=== PATIENT | male | born 1960 | race Caucasian/White ===

== ENCOUNTER 2019-05-14 06:35 | Inpatient (IN) | payer OTHER, MEDICARE ==
[~2019-05-14] VITALS: Ht 185.4 cm; Wt 88.6 kg
[2019-05-14] VITALS (24 sets, daily range): BP systolic 81–119; BP diastolic 47–85
[~2019-05-14 06:35] MED LIST: ASPI-983 PO; ATOR20TA66 PO; CLOP75TA28 PO; IBUP-30 PO; LISI-556 PO; METO50TA15 PO; NITR0.4T39 SL; RIBA200C13 PO; RIBA200T4 PO; TR1C15 TOP; ZOLP5TAB7 PO; [UNRECOGNIZED DRUG - CODE] PO
[2019-05-14] MEDS ORDERED: NS IV 1000 ML 1,000 ML ONE ×2 (06:38→09:07)
[2019-05-14] MEDS ORDERED: NS (IVPB) 100 ML ONE (06:40)
[2019-05-14] MEDS ORDERED: DILTIAZEM 125 MG/25 ML IV (CARDIZEM) IV ONE (06:41)
[2019-05-14] MEDS ORDERED: DILTIAZEM 25 MG/5 ML INJ (CARDIZEM) VIAL ONE (06:41)
[2019-05-14] MEDS ORDERED: NS IV 1000 ML 1,000 ML IV SCH ×2 (06:46→13:15)
[2019-05-14 06:53] LABS: BASOPHILS % (AUTO) 0 % (0-10); EOSINOPHILS # (AUTO) 0.1 10^3/uL (0.0-0.3); EOSINOPHILS % (AUTO) 2 % (0-10); HEMATOCRIT 35 % (40-54); LYMPHOCYTES # (AUTO) 0.7 X 10^3 (1.0-4.0); LYMPHOCYTES % (AUTO) 13 % (12-44); MEAN CORPUSCULAR HEMOGLOBIN 28 PG (25-34); MEAN CORPUSCULAR HGB CONC 31 G/DL (32-36); MEAN CORPUSCULAR VOLUME 90 FL (80-99); MEAN PLATELET VOLUME 8.8 FL (7.4-10.4); MONOCYTES # (AUTO) 0.4 X 10^3 (0.0-1.0); MONOCYTES % (AUTO) 8 % (0-12); NEUTROPHILS % (AUTO) 78 % (42-75); PLATELET COUNT 170 10^3/uL (130-400); RED CELL DISTRIBUTION WIDTH 19.7 % (10.0-14.5); WHITE BLOOD COUNT 5.1 10^3/uL (4.3-11.0)
[2019-05-14] MEDS: DILTIAZEM IV FOR DRIP 125 MG in NS (IVPB) 100 ML IV SCH ×2 (06:53→21:29)
[2019-05-14] MEDS ORDERED: LACTATED RINGERS 1,000 ML IV ONE ×2 (06:57→07:22)
[2019-05-14] MEDS ORDERED: GABA-488 (06:58)
[2019-05-14] MEDS ORDERED: FENT1PAT8 TD (06:58)
[2019-05-14] MEDS ORDERED: OXYC10TA7 PO (06:58)
[2019-05-14] MEDS ORDERED: ALLO300T2 PO (06:58)
[2019-05-14] MEDS ORDERED: METF500T8 PO (06:58)
[2019-05-14] MEDS ORDERED: TRAM50TA2 (06:58)
[2019-05-14] MEDS ORDERED: CYCL10TA9 PO (06:58)
[2019-05-14] MEDS ORDERED: DILTIAZEM 25 MG/5 ML INJ (CARDIZEM) VIAL IVP ONE (07:00)
--- NOTE | 2019-05-14 07:04 | ED General ---
General Chief Complaint: Dizziness/Syncope Stated Complaint: FALL Source of Information: Patient Exam Limitations: No Limitations History of Present Illness Date Seen by Provider: May 14, 2019 Time Seen by Provider: 06:41 Initial Comments Here with report of fall. Apparently he was going to the bathroom. He felt like his heart rate was fast and then he apparently passed out. He is not exactly sure what happened and does not remember the fall. Does have abrasions to the left side of the face and left brow. Denies other injury. 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 He has had 2 back surgeries related to that. He is due to start chemotherapy and radiation therapy per the but has not started that yet. He did have a PICC line until last night and that fell out. Has been hot and cold recently. No vomiting. EMS noted that initial O2 sat was in the 80s. The fire department and improved with oxygen. Patient does not normally wear oxygen. Blood sugar noted to be 160. Timing/Duration: 1 Hour (fall within the last hour) Associated Systoms: No Chest Pain, No Nausea/Vomiting; Shortness of Air, Weakness Allergies and Home Medications Allergies Coded Allergies: No Known Drug Allergies (Unverified , 07/25/15) Home Medications Aspirin 81 Mg Tablet.dr, 81 MG PO DAILY Prescribed by: JAHAIRA HERNÁNDEZ on 07/29/15 1259 Atorvastatin Calcium 20 Mg Tablet, 20 MG PO HS Prescribed by: JAHAIRA HERNÁNDEZ on 07/29/15 1259 Clopidogrel Bisulfate 75 Mg Tablet, 75 MG PO DAILY Prescribed by: JAHAIRA HERNÁNDEZ on 07/29/15 1259 Lisinopril 5 Mg Tablet, 5 MG PO DAILY Prescribed by: JAHAIRA HERNÁNDEZ on 07/29/15 1259 Metoprolol Tartrate 50 Mg Tablet, 50 MG PO BID, (Reported) Nitroglycerin 0.4 Mg Tab.subl, 0.4 MG SL PRN Prescribed by: JAHAIRA HERNÁNDEZ on 07/29/15 1259 Triamcinolone Acet 15 Gm Cr, TOP DAILY PRN for RASH, (Reported) APPLY TO RASH ON HANDS Zolpidem Tartrate 5 Mg Tablet, 5 MG PO HS PRN for SLEEP, (Reported) Patient Home Medication List Home Medication List Reviewed: Yes Review of Systems Review of Systems Constitutional: see HPI, chills, weakness EENTM: no symptoms reported Respiratory: No cough; short of breath Cardiovascular: No chest pain; edema, palpitations, syncope Gastrointestinal: No abdominal pain, No nausea, No vomiting Genitourinary: no symptoms reported Musculoskeletal: back pain, muscle pain Skin: change in color, lesions Psychiatric/Neurological: Denies Headache; Weakness All Other Systems Reviewed Negative Unless Noted: Yes Past Bvybwga-Quympm-Dzhcol Hx Past Med/Social Hx: Reviewed Nursing Past Med/Soc Hx Patient Social History Alcohol Use: Denies Use Recreational Drug Use: No Smoking Status: Former Smoker Recent Foreign Travel: No Contact w/Someone Who Travel: No Immunizations Up To Date Date of Influenza Vaccine: Jul 28, 2015 Seasonal Allergies Seasonal Allergies: No Past Medical History Surgeries: Yes Orthopedic Respiratory: No Cardiac: Yes Hypertension, Irregular Heartbeat Reproductive Disorders: No Gastrointestinal: Yes Hepatitis Musculoskeletal: Yes Arthritis Cancer: Yes Lymphoma Family Medical History Reviewed Nursing Family Hx CAD Under 55 Years Old, Hypertension Physical Exam-Suspected Sepsis Physical Exam Vital Signs Vital Signs - First Documented Capillary Refill : Height, Weight, BMI Height: 6'1.00" Weight: 260lbs. 0.0oz. 117.790530zs; 34.30 BMI Method:Stated General Appearance: No Apparent Distress, WD/WN HEENT: PERRL/EOMI, Pharynx Normal Neck: Non Tender, Supple Respiratory: Lungs Clear, Normal Breath Sounds Cardiovascular: No Murmur, Irregularly Irregular Gastrointestinal: Non Tender, Soft Extremity: Normal Range of Motion, Non Tender, Pedal Edema (left greater than right) Neurologic/Psychiatric: Alert, Oriented x3 Skin: cool, pallor Focused Exam Lactate Level 05/14/19 06:55: Lactic Acid Level 3.99*H 05/14/19 08:48: Lactic Acid Level Laboratory Tests Test 05/14/19 06:55 05/14/19 08:48 Lactic Acid Level 3.99 MMOL/L (0.50-2.00) *H Progress/Results/Core Measures Suspected Sepsis SIRS Temperature: Pulse: Respiratory Rate: Laboratory Tests 05/14/19 06:45: White Blood Count 5.1 Blood Pressure / Mean: 05/14/19 06:55: Lactic Acid Level 3.99*H 05/14/19 08:48: Laboratory Tests 05/14/19 06:45: Creatinine 0.63, Platelet Count 170, Total Bilirubin 0.6 05/14/19 06:55: INR Comment 1.1 Results/Orders Lab Results Laboratory Tests Test 05/14/19 06:45 05/14/19 06:55 05/14/19 08:48 05/14/19 08:52 Range/Units White Blood Count 5.1 4.3-11.0 10^3/uL Red Blood Count 3.95 L 4.35-5.85 10^6/uL Hemoglobin 11.0 L 13.3-17.7 G/DL Hematocrit 35 L 40-54 % Mean Corpuscular Volume 90 80-99 FL Mean Corpuscular Hemoglobin 28 25-34 PG Mean Corpuscular Hemoglobin Concent 31 L 32-36 G/DL Red Cell Distribution Width 19.7 H 10.0-14.5 % Platelet Count 170 130-400 10^3/uL Mean Platelet Volume 8.8 7.4-10.4 FL Neutrophils (%) (Auto) 78 H 42-75 % Lymphocytes (%) (Auto) 13 12-44 % Monocytes (%) (Auto) 8 0-12 % Eosinophils (%) (Auto) 2 0-10 % Basophils (%) (Auto) 0 0-10 % Neutrophils # (Auto) 4.0 1.8-7.8 X 10^3 Lymphocytes # (Auto) 0.7 L 1.0-4.0 X 10^3 Monocytes # (Auto) 0.4 0.0-1.0 X 10^3 Eosinophils # (Auto) 0.1 0.0-0.3 10^3/uL Basophils # (Auto) 0.0 0.0-0.1 10^3/uL Sodium Level 138 135-145 MMOL/L Potassium Level 3.8 3.6-5.0 MMOL/L Chloride Level 102 98-107 MMOL/L Carbon Dioxide Level 19 L 21-32 MMOL/L Anion Gap 17 H 5-14 MMOL/L Blood Urea Nitrogen 22 H 7-18 MG/DL Creatinine 0.63 0.60-1.30 MG/DL Estimat Glomerular Filtration Rate > 60 BUN/Creatinine Ratio 35 Glucose Level 146 H 70-105 MG/DL Calcium Level 8.8 8.5-10.1 MG/DL Corrected Calcium 9.1 8.5-10.1 MG/DL Total Bilirubin 0.6 0.1-1.0 MG/DL Aspartate Amino Transf (AST/SGOT) 18 5-34 U/L Alanine Aminotransferase (ALT/SGPT) 15 0-55 U/L Alkaline Phosphatase 140 H 40-136 U/L Troponin I < 0.028 <0.028 NG/ML Total Protein 6.0 L 6.4-8.2 GM/DL Albumin 3.6 3.2-4.5 GM/DL Prothrombin Time 14.2 12.2-14.7 SEC INR Comment 1.1 0.8-1.4 Activated Partial Thromboplast Time 23 L 24-35 SEC Lactic Acid Level 3.99 *H 0.50-2.00 MMOL/L My Orders Orders - CHAYO MCLEAN MD Ns Iv 1000 Ml (Sodium Chloride 0.9%) (05/14/19 06:38) Ns (Ivpb) (Sodium C... W/Diltiazem Iv Fo (05/14/19 07:00) Diltiazem Injection (Cardizem Injection) (05/14/19 07:00) Cbc With Automated Diff (05/14/19 06:46) Comprehensive Metabolic Panel (05/14/19 06:46) Blood Culture (05/14/19 06:46) Sputum Culture (05/14/19 06:46) Urinalysis (05/14/19 06:46) Urine Culture (05/14/19 06:46) Protime With Inr (05/14/19 06:46) Partial Thromboplastin Time (05/14/19 06:46) Chest 1 View, Ap/Pa Only (05/14/19 06:46) Ed Iv/Invasive Line Start (05/14/19 06:46) Ekg Tracing (05/14/19 06:46) Troponin I (05/14/19 06:46) Vital Signs Adult Sepsis Patie Q15M (05/14/19 06:46) O2 (05/14/19 06:46) Remove Rings In Anticipation O (05/14/19 06:46) Lactic Acid Analyzer (05/14/19 06:46) Ns Iv 1000 Ml (Sodium Chloride 0.9%) (05/14/19 06:46) Ct Head/Cervical Spine Wo (05/14/19 06:46) Ns (Ivpb) (Sodium Chloride 0.9% Ivpb Bag (05/14/19 06:40) Diltiazem Injection (Cardizem Injection) (05/14/19 06:41) Diltiazem Iv For Drip (Cardizem Iv For D (05/14/19 06:41) Lactated Ringers (Lr 1000 Ml Iv Solution (05/14/19 06:57) Ct Angio Chest W (05/14/19 07:17) Lactated Ringers (Lr 1000 Ml Iv Solution (05/14/19 07:22) Iohexol Injection (Omnipaque 350 Mg/Ml 1 (05/14/19 07:30) Received Contrast (Hold Metformin- Contr (05/14/19 07:30) Ns (Ivpb) (Sodium Chloride 0.9% Ivpb Bag (05/14/19 07:30) Arterial Blood Gas (05/14/19 08:18) Arterial Blood Draw (05/14/19 ) Echo W Doppler/Color Flow (05/14/19 08:46) Medications Given in ED Current Medications Medications Dose Ordered Sig/Ciarra Route Start Time Stop Time Status Last Admin Dose Admin Diltiazem HCl 10 mg ONCE ONCE IVP 05/14/19 07:00 05/14/19 07:01 DC 05/14/19 06:53 10 MG Iohexol 125 ml ONCE ONCE IV 05/14/19 07:30 05/14/19 07:55 DC 05/14/19 08:06 85 ML Lactated Ringer's 1,000 ml @ 0 mls/hr Q0M ONCE IV 05/14/19 06:57 05/14/19 06:58 DC 05/14/19 07:09 0 MLS/HR Lactated Ringer's 1,000 ml @ 0 mls/hr Q0M ONCE IV 05/14/19 07:22 05/14/19 07:23 DC 05/14/19 07:32 999 MLS/HR Sodium Chloride 80 ml ONCE ONCE IV 05/14/19 07:30 05/14/19 07:55 DC 05/14/19 08:07 80 ML Vital Signs/I&O 05/14/19 05/14/19 05/14/19 06:35 06:35 06:53 Temp 96.9 96.9 Pulse 84 84 Resp 24 24 B/P (MAP) 89/76 (80) 89/76 Pulse Ox 87 87 87 O2 Delivery Nasal Cannula Nasal Cannula Nasal Cannula O2 Flow Rate 5.00 5.00 5.00 Capillary Refill : Progress Note : Progress Note Seen and evaluated on arrival by EMS. Atrial fibrillation with rapid ventricular rate noted. Labs, EKG, chest x-ray, blood cultures, lactic acid and normal saline 1 L bolus ordered. We will initiate Cardizem 10 mg IV bolus and 10 mg per hour drip while continuing fluids. Second liter of fluid with LR 1 L bolus ordered. We will get CT of the head and neck. Given patient's cancer diagnosis and atrial fibrillation in the setting of hypoxia, pulmonary embolism is sign ificant concern. Pending chemistry study and likely also get CT angiogram of the chest. Monitor patient. 0740: Third liter of fluid with LR 1 L bolus ordered and initiated. Patient going to CT for CT angiogram. 0800 Patient's blood pressure still tenuous at around 90 or less systolic. Patient returned from CT and there is definitely concerns about large bilateral pulmonary embolism. 0822: C collar removed and no significant neck pain on range of motion. I have discussed this with the patient and family regarding concerns about embolism after discussing with radiologist. I have called Dr. Ocampo and he will come to the emergency department to evaluate. We're not sure we have of ICU bed available and we are discussing appropriate options for therapy regarding the pulmonary embolism. 0846: Dr. Ocampo and I have seen the patient together and discussed risk and benefits potentially for TPA. We will include Dr. Castanon and have called him and discussed with him. He is in route to the emergency department. 0900: We have further discussed the case with Dr. Castanon. All 3 of us agree that patient would benefit from intra-arterial TPA administration and this was discussed with patient and family including risk and benefits. Patient and family both agree with pursuing this therapy and I do believe this is in the patient's best interest to improve his stability and outcome. Patient will go to [facility] for TPA administration and then admission afterwards. I will let Dr. Martinez know of the admission. Consents form signed by patient. Lactic acidosis related to hypoxia secondary to pulmonary embolism and not to infectious etiology. No indication for antibiotics currently. ECG Initial ECG Impression Date: May 14, 2019 Initial ECG Impression Time: 07:01 Initial ECG Rate: 131 Initial ECG Rhythm: A Fib/Flutter Initial ECG Impression: Atrial Fibrillation w/RVR Comment Atrial fibrillation with rapid ventricular rate. Normal axis. No evidence of ST elevation WI. Change from previous of 26 July 2015. Interpreted by me. Diagnostic Imaging Diagonstic Imaging: CT Plain Films/CT/US/NM/MRI: c-spine, head Comments [facility] [place], [place] NAME: REFUGIO WESLEY [facility] REC#: [id number] PT STATUS: REG ER : 1960 PHYSICIAN: CHAYO MCLEAN MD ADMIT DATE: 05/14/19/ER Draft Date of Exam:05/14/19 CT HEAD/CERVICAL SPINE WO PROCEDURE: CT head and CT cervical spine without contrast. TECHNIQUE: Multiple contiguous axial images were obtained through the brain and cervical spine without the use of intravenous contrast. Sagittal and coronal reformations through the cervical spine were then performed. Auto Exposure Controls were utilized during the CT exam to meet ALARA standards for radiation dose reduction. INDICATION: Syncopal episode. History of B-cell lymphoma. COMPARISON: 07/25/2015 FINDINGS: CT head: The ventricles and cortical sulci are age-appropriate. There is no midline shift or mass-effect. No acute intracranial hemorrhage is seen. There is no CT evidence of acute territorial ischemia. No focal masses or collections are present. The calvarium is intact. The visualized paranasal sinuses are clear. CT cervical spine: No acute fracture or dislocation is seen in the cervical spine. There is straightening of the cervical spine. Mixed sclerotic and lucent lesion is seen throughout the T1 and partially visualized T3 vertebral bodies. Vertebral body heights are well-maintained. The craniocervical junction is well-maintained. Mild degenerative changes are seen in the cervical spine with disc osteophyte complexes and uncovertebral arthropathy. Soft tissues of the neck are unremarkable. IMPRESSION: 1. No hemorrhage or focal intra-axial mass. No CT evidence of large acute territorial ischemia. 2. No acute fracture or dislocation in the cervical spine. 3. Mixed sclerotic and lucent lesions throughout the T1 and T3 vertebral bodies. This may represent metastatic disease related to the patient's history of B-cell lymphoma. Dictated on workstation # [id number] Dict: 05/14/19 0801 Trans: 05/14/19 0807 [facility] [id number] Interpreted by: MAE SMLAL DO Electronically signed by: Whitgoamanda Imaging: CT Plain Films/CT/US/NM/MRI: chest Comments [facility] [place] [place] NAME: REFUGIO WESLEY [facility] REC#: [id number] PT STATUS: REG ER : 1960 PHYSICIAN: CHAYO MCLEAN MD ADMIT DATE: 05/14/19/ER Draft Date of Exam:05/14/19 CT ANGIO CHEST W PROCEDURE: CT angiography of the chest with contrast. TECHNIQUE: Multiple contiguous axial images were obtained through the chest after uneventful bolus administration of intravenous contrast. 3D reconstructed CTA MIP acquisitions were also performed. Auto Exposure Controls were utilized during the CT exam to meet ALARA standards for radiation dose reduction. INDICATION: B-cell lymphoma FINDINGS: There is a substantial burden of bilateral pulmonary arterial embolic disease. Clot burden is occlusive and most advanced at the levels of the right upper and left lower lobes, the lower lobes are involved. The remaining lobar branches are degraded with partially occlusive thrombus. No bridging or saddle embolus. The pulmonary outflow tract unremarkable. No intracardiac chamber mass or thrombus. There is no abnormal enlargement of the right heart. There is no displacement of the intraventricular septum. There were no CT findings suggestive of a right heart strain. There is some only mild bibasilar and perihilar partial atelectasis but there were no findings felt suggestive of lung infarct or pulmonary hemorrhage. This patient has innumerable mixed ill-defined lytic and sclerotic bony lesions throughout the chest presumptively on a neoplastic basis with multiple treated and untreated thoracic presumed pathological endplate compressions. No substantial retropulsion and no resultant canal stenosis. Multiple rib lesions are present as well, however, ribs are less substantially involving the spine. No pneumothorax. The upper abdomen reveals postoperative changes and decompression of the lower thoracic and upper lumbar spine. Spleen is mildly enlarged but appeared nonfocal. No obstructive phenomena, free air or free fluid within the visualized abdomen. IMPRESSION: The large burden of bilateral PE distributed as described without features suggestive of right heart strain or pulmonary hemorrhage/infarct, mild atelectasis with no thoracic effusion or pneumothorax. Widespread lytic bony metastatic disease and multiple treated and untreated pathological vertebral fractures. Pertinent results were relayed by phone to the ER physician prior to dictation Dictated on workstation # [id number] Dict: 05/14/19 0809 Trans: 05/14/19 08 GILDARDO [id number] Interpreted by: DONNELL SALAZAR Electronically signed by: Ken Imaging: Xray Plain Films/CT/US/NM/MRI: chest Comments [facility] [place] NAME: REFUGIO WESLEY [facility] REC#: [id number] PT STATUS: REG ER : 1960 PHYSICIAN: CHAYO MCLEAN MD ADMIT DATE: 05/14/19/ER Draft Date of Exam:05/14/19 CHEST 1 VIEW, AP/PA ONLY Clinical indication: Patient with syncopal episode approximately 2 minutes loss of consciousness. Patient has history of diffuse B-cell lymphoma cancer. Exam: Portable chest x-ray upright view. Comparisons: Chest x-ray dated 07/27/2015. Findings: There is progression of mild bibasilar atelectasis with slight low lung volumes. There is otherwise stable slight increased lung markings throughout both lungs which may be from chronic lung changes. There is no pleural effusion or pneumothorax. Stable cardiomegaly with no significant pulmonary vascular congestion. There are hypertrophic spurs involving the thoracic spine. Postop changes to the thoracolumbar region with fusion hardware seen and kyphoplasty changes. Impression: 1: Interval development of mild bibasilar atelectasis. Otherwise there is no interval radiographic evidence of acute cardiopulmonary process. Dictated on workstation # [id number] Dict: 05/14/19 0758 Trans: 05/14/19 0806 MELIDA [id number] Interpreted by: ELVIRA LORA MD Electronically signed by: Departure Communication (Admissions) Time/Spoke to Admitting Phy: 08:22 Time/Spoke to Consulting Phy: 08:46 Impression Primary Impression: Bilateral pulmonary embolism Additional Impressions: Atrial fibrillation with rapid ventricular response Hypotension Qualified Codes: I95.89 - Other hypotension Lactic acidosis Disposition: ADMITTED INPATIENT Condition: Critical Admissions Decision to Admit Reason: Admit from ER (General) Decision to Admit/Date: May 14, 2019 Time/Decision to Admit Time: 09:11 Departure-Patient Inst. Referrals: HEBER MARTINEZ DO (PCP/Family) Primary Care Physician CHAYO MCLEAN MD May 14, 2019 07:04
[2019-05-14 07:15] LABS: ALANINE AMINOTRANSFERASE 15 U/L (0-55); ALBUMIN 3.6 GM/DL (3.2-4.5); ALKALINE PHOSPHATASE 140 U/L (40-136); BILIRUBIN,TOTAL 0.6 MG/DL (0.1-1.0); BUN/CREATININE RATIO 35; CALCIUM 8.8 MG/DL (8.5-10.1); CARBON DIOXIDE 19 MMOL/L (21-32); CHLORIDE 102 MMOL/L (98-107); CREATININE SERUM 0.63 MG/DL (0.60-1.30); GFR ESTIMATED > 60; GLUCOSE 146 MG/DL (70-105); POTASSIUM 3.8 MMOL/L (3.6-5.0); SODIUM 138 MMOL/L (135-145)
[2019-05-14] MEDS ORDERED: HOLD METFORMIN - RECEIVED CONTRAST 20 ML VIAL IV SCH (07:30)
[2019-05-14] MEDS ORDERED: IOHEXOL 350 MG/ML 150 ML (OMNIPAQUE 350) VIAL IV ONE (07:30)
[2019-05-14] MEDS ORDERED: NS 100 ML (IVPB) BAG IV ONE (07:30)
[2019-05-14 07:32] LABS: INR 1.1 (0.8-1.4); PROTHROMBIN TIME PATIENT 14.2 SEC (12.2-14.7)
--- NOTE | 2019-05-14 08:07 | Diagnostic Imaging Report ---
PROCEDURE: CT head and CT cervical spine without contrast. TECHNIQUE: Multiple contiguous axial images were obtained through the brain and cervical spine without the use of intravenous contrast. Sagittal and coronal reformations through the cervical spine were then performed. Auto Exposure Controls were utilized during the CT exam to meet ALARA standards for radiation dose reduction. INDICATION: Syncopal episode. History of B-cell lymphoma. COMPARISON: 07/25/2015 FINDINGS: CT head: The ventricles and cortical sulci are age-appropriate. There is no midline shift or mass-effect. No acute intracranial hemorrhage is seen. There is no CT evidence of acute territorial ischemia. No focal masses or collections are present. The calvarium is intact. The visualized paranasal sinuses are clear. CT cervical spine: No acute fracture or dislocation is seen in the cervical spine. There is straightening of the cervical spine. Mixed sclerotic and lucent lesion is seen throughout the T1 and partially visualized T3 vertebral bodies. Vertebral body heights are well-maintained. The craniocervical junction is well-maintained. Mild degenerative changes are seen in the cervical spine with disc osteophyte complexes and uncovertebral arthropathy. Soft tissues of the neck are unremarkable. IMPRESSION: 1. No hemorrhage or focal intra-axial mass. No CT evidence of large acute territorial ischemia. 2. No acute fracture or dislocation in the cervical spine. 3. Mixed sclerotic and lucent lesions throughout the T1 and T3 vertebral bodies. This may represent metastatic disease related to the patient's history of B-cell lymphoma. Dictated by: Dictated on workstation # [id number]
--- NOTE | 2019-05-14 08:07 | Diagnostic Imaging Report ---
Clinical indication: Patient with syncopal episode approximately 2 minutes loss of consciousness. Patient has history of diffuse B-cell lymphoma cancer. Exam: Portable chest x-ray upright view. Comparisons: Chest x-ray dated 07/27/2015. Findings: There is progression of mild bibasilar atelectasis with slight low lung volumes. There is otherwise stable slight increased lung markings throughout both lungs which may be from chronic lung changes. There is no pleural effusion or pneumothorax. Stable cardiomegaly with no significant pulmonary vascular congestion. There are hypertrophic spurs involving the thoracic spine. Postop changes to the thoracolumbar region with fusion hardware seen and kyphoplasty changes. Impression: 1: Interval development of mild bibasilar atelectasis. Otherwise there is no interval radiographic evidence of acute cardiopulmonary process. Dictated by: Dictated on workstation # [id number]
--- NOTE | 2019-05-14 08:22 | NUR ---
C COLLAR REMOVED BY DR MCLEAN.
--- NOTE | 2019-05-14 08:23 | Diagnostic Imaging Report ---
PROCEDURE: CT angiography of the chest with contrast. TECHNIQUE: Multiple contiguous axial images were obtained through the chest after uneventful bolus administration of intravenous contrast. 3D reconstructed CTA MIP acquisitions were also performed. Auto Exposure Controls were utilized during the CT exam to meet ALARA standards for radiation dose reduction. INDICATION: B-cell lymphoma FINDINGS: There is a substantial burden of bilateral pulmonary arterial embolic disease. Clot burden is occlusive and most advanced at the levels of the right upper and left lower lobes, the lower lobes are involved. The remaining lobar branches are degraded with partially occlusive thrombus. No bridging or saddle embolus. The pulmonary outflow tract unremarkable. No intracardiac chamber mass or thrombus. There is no abnormal enlargement of the right heart. There is no displacement of the intraventricular septum. There were no CT findings suggestive of a right heart strain. There is some only mild bibasilar and perihilar partial atelectasis but there were no findings felt suggestive of lung infarct or pulmonary hemorrhage. This patient has innumerable mixed ill-defined lytic and sclerotic bony lesions throughout the chest presumptively on a neoplastic basis with multiple treated and untreated thoracic presumed pathological endplate compressions. No substantial retropulsion and no resultant canal stenosis. Multiple rib lesions are present as well, however, ribs are less substantially involving the spine. No pneumothorax. The upper abdomen reveals postoperative changes and decompression of the lower thoracic and upper lumbar spine. Spleen is mildly enlarged but appeared nonfocal. No obstructive phenomena, free air or free fluid within the visualized abdomen. IMPRESSION: The large burden of bilateral PE distributed as described without features suggestive of right heart strain or pulmonary hemorrhage/infarct, mild atelectasis with no thoracic effusion or pneumothorax. Widespread lytic bony metastatic disease and multiple treated and untreated pathological vertebral fractures. Pertinent results were relayed by phone to the ER physician prior to dictation Dictated by: Dictated on workstation # [id number]
--- NOTE | 2019-05-14 08:50 | NUR ---
DR EASTMAN AND DR BLOUNT IN ROOM.
[2019-05-14 08:58] LABS: ABG BASE EXCESS -2.2 MMOL/L (-2.5-2.5); ABG OXYGEN SATURATION 95 % (94-100); ABG PCO2 36 MMHG (35-45); ABG PO2 74 MMHG (79-93)
--- NOTE | 2019-05-14 08:58 | NUR ---
ULTRASOUND TO ROOM FOR ECHO.
[2019-05-14 09:01] LABS: ALLENS TEST YES-POS; INSPIRED O2 12; PATIENT TEMP 97.9; VENTILATOR NO
[2019-05-14] MEDS ORDERED: fentaNYL INJECTION 100 MCG/2 ML AMP ONE (09:06)
[2019-05-14] MEDS ORDERED: LIDOCAINE 1% INJ 20 ML 20 ML VIAL ONE (09:06)
[2019-05-14] MEDS ORDERED: MIDAZOLAM 5 MG/5 ML (VERSED) VIAL ONE (09:06)
[2019-05-14] MEDS ORDERED: HEParin (CATH LAB) 2,000 ML IV ONE (09:07)
--- NOTE | 2019-05-14 09:07 | Consultation-Cardiology ---
HPI-Cardiology Cardiology Consultation: Date of Consultation 05/14/19 Date of Admission Attending Physician Ulises Castanon MD Admitting Physician Bertin Cole DO Consulting Physician Ulises CASTANON MD HPI: Time Seen by a Provider: 09:15 Chief Complaint: syncope this is a 59-year-old gentleman who has history of lymphoma/myeloma, non-STEMI in August 2015 treated with PCI and drug-eluting stent to the proximal LAD, and recent back surgery over 2 weeks ago who presented with syncope, shortness of breath and hypotension. CT angiography showed extensive bilateral pulmonary embolism. Hypoxia, atrial fibrillation with RVR. Systolic blood pressure of 80 mmHg. After 3 L of IV fluids patient's systolic blood pressure was 98 mmHg. Review of Systems-Cardiology Review of Systems Constitutional: As described under HPI; No As described under HPI, No no symptoms reported, No chills, No fever, No lightheadedness Eyes: No As described under HPI, No no symptoms reported, No blindness, No blurred vision, No contact lenses, No drainage, No decreased acuity, No foreign body sensation, No pain, No vision change Ears/Nose/Throat: No As described under HPI, No no symptoms reported, No chronic hearing loss, No ear discharge, No ear pain, No nasal drainage, No ulcerations Respiratory: No no symptoms reported; As described under HPI; No As described under HPI, No cough; orthopnea; No shortness of breath, No SOB with excertion Cardiovascular: No no symptoms reported; As described under HPI; No As described under HPI, No chest pain, No edema; irregular heart rate; No lightheadedness; palpitations, syncope Gastrointestinal: No no symptoms reported, No As described under HPI, No abdomen distended, No abdominal pain, No blood streaked bowels, No constipation, No diarrhea, No nausea, No vomiting, No stool coloration changes Genitourinary: No As described under HPI, No burning, No dysuria, No discharge, No frequency, No flank pain, No hematuria, No urgency Skin: No rash, No skin related problems, No ulcerations Psychiatric/Neurological: No anxiety, No depression, No seizure, No focal weakness, No syncope Hematologic: No bleeding abnormalities All Other Systems Reviewed Negative Unless Noted: Yes TNL-[id number] Hx Patient Social History Alcohol Use: Denies Use Recreational Drug Use: No Smoking Status: Former Smoker 2nd Hand Smoke Exposure: No Recent Foreign Travel: No Recent Infectious Disease Expo: No Hospitalization with Isolation: Denies Immunizations Up To Date Tetanus Booster (TDap): Unknown Date of Influenza Vaccine: Jul 28, 2015 Past Medical History PMH As described under Assessment. Family Medical History Family Medical History: Father had DC when he was in his 50s Allergies and Home Medications Allergies Coded Allergies: No Known Drug Allergies (Unverified , 07/25/15) Home Medications Aspirin 81 Mg Tablet.dr, 81 MG PO DAILY Prescribed by: JAHAIRA HERNÁNDEZ on 07/29/15 1259 Atorvastatin Calcium 20 Mg Tablet, 20 MG PO HS Prescribed by: JAHAIRA HERNÁNDEZ on 07/29/15 1259 Clopidogrel Bisulfate 75 Mg Tablet, 75 MG PO DAILY Prescribed by: JAHAIRA HERNÁNDEZ on 07/29/15 1259 Lisinopril 5 Mg Tablet, 5 MG PO DAILY Prescribed by: JAHAIRA HERNÁNDEZ on 07/29/15 1259 Metoprolol Tartrate 50 Mg Tablet, 50 MG PO BID, (Reported) Nitroglycerin 0.4 Mg Tab.subl, 0.4 MG SL PRN Prescribed by: JAHAIRA HERNÁNDEZ on 07/29/15 1259 Triamcinolone Acet 15 Gm Cr, TOP DAILY PRN for RASH, (Reported) APPLY TO RASH ON HANDS Zolpidem Tartrate 5 Mg Tablet, 5 MG PO HS PRN for SLEEP, (Reported) Patient Home Medication List Home Medication List Reviewed: Yes Physical Exam-Cardiology Physical Exam Vital Signs/I&O 05/14/19 05/14/19 05/14/19 05/14/19 06:35 06:35 06:53 09:33 Temp 96.9 96.9 Pulse 84 84 128 Resp 24 24 18 B/P (MAP) 89/76 (80) 89/76 82/68 (73) Pulse Ox 87 87 87 93 O2 Delivery Nasal Cannula Nasal Cannula Nasal Cannula OxyMask O2 Flow Rate 5.00 5.00 5.00 12.00 05/14/19 09:46 Temp 97.1 Pulse 121 Resp 16 B/P (MAP) 81/59 Pulse Ox 90 O2 Delivery OxyMask O2 Flow Rate 12.00 Capillary Refill : Less Than 3 Seconds Constitutional: AAO x 3, apparent distress HEENT: PERRL; No discharge; hearing is well preserved, oral hygience is good; No ulceration, No xanthelasmas are seen Neck: No carotid bruit; carotid pulses are 2 + bilaterally Respiratory: accessory muscle use, respiratory distress, chest is bilaterally symmetric, other (decreased air entry bilaterally.) Cardiovascular: irregularly irregular, tachycardia, S1 and S2 Gastrointestinal: No tender, No soft, No round, No distended, No pulsatile mass , No organomegaly, No guarding, No rebound, No tenderness, No hernia, No mass, No audible bowel sounds, No abnormal bowel sounds, No abdominal bruits, No spleenomegaly, No other Rectal: deferred Extremities: normal range of motion, non-tender, normal inspection; No clubbing, No cyanosis, No significant edema Neurologic/Psychiatric: no motor/sensory deficits, alert, normal mood/affect, oriented x 3, power is 5/5 both on sides Skin: cool, pallor Data Review Labs Laboratory Tests 05/14/19 06:45: White Blood Count 5.1, Red Blood Count 3.95L, Hemoglobin 11.0L, Hematocrit 35L, Mean Corpuscular Volume 90, Mean Corpuscular Hemoglobin 28, Mean Corpuscular Hemoglobin Concent 31L, Red Cell Distribution Width 19.7H, Platelet Count 170, Mean Platelet Volume 8.8, Neutrophils (%) (Auto) 78H, Lymphocytes (%) (Auto) 13, Monocytes (%) (Auto) 8, Eosinophils (%) (Auto) 2, Basophils (%) (Auto) 0, Neut rophils # (Auto) 4.0, Lymphocytes # (Auto) 0.7L, Monocytes # (Auto) 0.4, Eosinophils # (Auto) 0.1, Basophils # (Auto) 0.0, Sodium Level 138, Potassium Level 3.8, Chloride Level 102, Carbon Dioxide Level 19L, Anion Gap 17H, Blood Urea Nitrogen 22H, Creatinine 0.63, Estimat Glomerular Filtration Rate > 60, BUN/Creatinine Ratio 35, Glucose Level 146H, Calcium Level 8.8, Corrected Calcium 9.1, Total Bilirubin 0.6, Aspartate Amino Transf (AST/SGOT) 18, Alanine Aminotransferase (ALT/SGPT) 15, Alkaline Phosphatase 140H, Troponin I < 0.028, Total Protein 6.0L, Albumin 3.6 05/14/19 06:55: Prothrombin Time 14.2, INR Comment 1.1, Activated Partial Thromboplast Time 23L, Lactic Acid Level 3.99*H 05/14/19 08:48: Lactic Acid Level 4.18*H 05/14/19 08:52: Blood Gas Puncture Site R RADIAL, Blood Gas Patient Temperature 97.9, Arterial Blood pH 7.40, Arterial Blood Partial Pressure CO2 36, Arterial Blood Partial Pressure O2 74L, Arterial Blood HCO3 22L, Arterial Blood Total CO2 23.0, Arterial Blood Oxygen Saturation 95, Arterial Blood Base Excess -2.2, Vazquez Test YES-POS, Blood Gas Ventilator Setting NO, Blood Gas Inspired Oxygen 12 05/14/19 09:15: Urine Color YELLOW, Urine Clarity CLEAR, Urine pH 6.5, Urine Specific [place] 1.020, Urine Protein NEGATIVE, Urine Glucose (UA) NEGATIVE, Urine Ketones NEGATIVE, Urine Nitrite NEGATIVE, Urine Bilirubin NEGATIVE, Urine Urobilinogen NORMAL, Urine Leukocyte Esterase NEGATIVE, Urine RBC (Auto) NEGATIVE, Urine RBC NONE, Urine WBC NONE, Urine Crystals NONE, Urine Bacteria NEGATIVE, Urine Casts NONE, Urine Mucus NEGATIVE, Urine Culture Indicated CULTURE PENDING ECG Impression ECG Initial ECG Impression: Atrial Fibrillation w/RVR A/P-Cardiology Assessment/Admission Diagnosis extensive bilateral pulmonary embolism with shock, Atrial fibrillation with rapid ventricular rate, history of DC, PCI, Previous history of ischemic cardiomyopathy, Lactic acidosis, Anemia, Recent back surgery Plan patient has extensive bilateral pulmonary embolism with refractory shock. His already been given 3 L of IV fluids and his systolic blood pressure at rest is 98 mmHg. Patient is in extremis, hypoxic in atrial fibrillation with rapid ventricular rate. Dr. Cleveland and Dr. Ocampo was in the room. We discussed various options including systemic thrombolytics versus intra-arterial thrombolytics. Pros and cons were discussed. With intra-arterial thrombolytics we can give significantly less amount of thrombolytics as compared to systemic thrombolytics. However I did discuss with them that there is a 2 percent risk of a complication including systemic bleeding, damage to the blood vessel, damage to the RV, rupture of the pulmonary arteries. The patient and family understood the risks and gave informed consent. Dr. Cleveland and Dr. Ocampo agreed with the plan as well. Atrial fibrillation with rapid ventricular rate: Likely due to severe pulmonary condition. CAD/PCI in August 2015. History of ischemic cardiomyopathy with LVEF of 35 percent in August 2015. I will recommend an echocardiogram. Lactic acidosis, anemia, deferred to the ICU team. Recent back surgery: Back surgery was over 2 weeks ago. However there is still a small risk of bleeding in the back. Patient and family understands the risk and will like us to proceed with the procedure. Critically ill patient. 30 minutes was spent discussing with the patient, ER team, ICU team, petroleum refinery laborer team including taking care of the patient. Thank you for your consultation. Please call me if you have any questions. Dina Castanon MD, FACP, FACC, FSCAI, FHRS, CCDS Interventional Cardiology Cardiac Electrophysiology Vascular Medicine and Endovascular Interventions Ulises CASTANON MD May 14, 2019 09:07
[2019-05-14] MEDS ORDERED: TENECTEPLASE 5 MG in SYRINGE-IVPB 0 SYRINGE, WATER (STERILE) FOR INJECTION 4 ML IV ONE ×3 (09:15)
[2019-05-14] MEDS ORDERED: WATER IV ONE ×3 (09:15)
[2019-05-14] MEDS ORDERED: TENECTEPLASE IV ONE ×3 (09:15)
[2019-05-14 09:27] LABS: BILIRUBIN,URINE NEGATIVE (NEGATIVE); CLARITY,URINE CLEAR; COLOR,URINE YELLOW; GLUCOSE, URINE (UA) NEGATIVE (NEGATIVE); KETONES,URINE NEGATIVE (NEGATIVE); LEUKOCYTE ESTERASE ,URINE NEGATIVE (NEGATIVE); NITRITE,URINE NEGATIVE (NEGATIVE); PH,URINE 6.5 (5-9); PROTEIN,URINE NEGATIVE (NEGATIVE); UROBILINOGEN,URINE NORMAL (NORMAL)
[2019-05-14 09:41] LABS: BACTERIA,URINE NEGATIVE /HPF
--- NOTE | 2019-05-14 10:31 | Cardiac Procedure Note-CS/ASA ---
Pre-Procedure Note Pre-Op Procedure Note H&P Reviewed The H&P was reviewed, patient examined and no changes noted. Date H&P Reviewed: May 14, 2019 Time H&P Reviewed: 09:30 Conscious Sedation Pre-Proced Time 09:30 ASA Score 3 For ASA 3 and 4: Consider anesthesia and medical clearance. Also, for patients with a history of failed moderate sedation consider anesthesia. Airway Lungs Heart ASA score ASA 1: a normal healthy patient ASA 2: a patient with a mild systemic disease (mid diabetes, controlled hypertension, obesity ASA 3: a patient with a severe systemic disease that limits activity (angina, COPD, prior Myocardial infarction) ASA 4: a patient with an incapacitating disease that is a constant threat to life (CHF, renal failure) ASA 5: a moribund patient not expected to survive 24 hrs. (ruptured aneurysm) ASA 6: a declared brain- patient whose organs are being harvested. For emergent operations, add the letter E after the classification Mallampati Classification Grade 2 Sedation Plan Analgesia, Amnesia, Plan communicated to team members, Discussed options with patient/fam, Discussed risks with patient/fam The patient is an appropriate candidate to undergo the planned procedure, sedation, and anesthesia. The patient immediately re-assessed prior to indication. Ulises BLOUNT MD May 14, 2019 10:31
--- NOTE | 2019-05-14 10:34 | Coronary Angiography & PCI ---
Peripheral Angio & Interv DATE OF SERVICE: 05/14/19 PRIMARY PHYSICIAN: Bertin Cole DO PERFORMING INTERVENTIONALIST: Dr. Dina Castanon REFERRING PHYSICIAN Dr. Fredo Ocampo. INDICATION: bilateral extensive pulmonary embolism with shock. PREOPERATIVE INDICATION: bilateral extensive pulmonary embolism with shock. POSTOPERATIVE DIAGNOSIS: bilateral extensive pulmonary embolism, shock, status post intra-arterial thrombolytics. HISTORY: this is a 59-year-old gentleman who has history of lymphoma/myeloma, non-STEMI in August 2015 treated with PCI and drug-eluting stent to the proximal LAD, and recent back surgery over 2 weeks ago who presented with syncope, shortness of breath and hypotension. CT angiography showed extensive bilateral pulmonary embolism. Hypoxia, atrial fibrillation with RVR. Systolic blood pressure of 80 mmHg. After 3 L of IV fluids patient's systolic blood pressure was 98 mmHg. PROCEDURE PERFORMED: 1. Right heart catheterization. 2. Pulmonary angiography. 3. Selective left pulmonary angiography. 4. Selective right pulmonary angiography. 5. Selective left pulmonary artery thrombolytic therapy. 6. Selective right pulmonary artery thrombolytic therapy. 7. Right ventriculogram SPECIMENS: None. ANESTHESIA: Conscious sedation. BLOOD LOSS: 20 mL. COMPLICATIONS: None. CONTRAST USED: 80 ml. FLUOROSCOPY DOSE: 74 Mgy. FLUOROSCOPY TIME: 4.8 minutes. ANTICOAGULATION: none DESCRIPTION/FINDINGS OF PROCEDURE: The patient was brought to the pipelines laborer after informed consent was taken. All the risks and complications were explained in detail. The patient was draped and prepped in the usual sterile fashion. Access was gained in the right femoral vein with a 5 Guine[place] sheath. We advanced a pigtail catheter with the J guidewire. The wire was advanced into the RV and then into the main pulmonary artery. The pigtail catheter was advanced on top of the J-wire. The wire was taken out and left PA pressures were measured. Then selective left pulmonary angiogram was performed. no proximal large pulmonary embolism was identified. 5 mg of TNKase was given intra-arterial over 10 seconds. We then manipulated the pigtail catheter and placed it into the right pulmonary artery and a selective angiogram was performed. There was no saddle embolus noted. 5 mg of TNKase was given intra-arterial over 10 seconds. Also right PA pressure was measured. Right PA pressure was 32 mmHg. We waited for 5 minutes and the right PA pressure increased to 3739 mmHg. We then placed the pigtail catheter in the main pulmonary artery and took a post-angiogram. There was no obvious bleeding identified. PA pressure was again noted. We then pulled back the pigtail catheter in the RV and an RV angiogram was performed; RV size and function were within acceptable limits. RV hemodynamics were also recorded. We then pulled back the pigtail catheter into the RA and RA pressure was recorded. RIGHT HEART CATHETERIZATION: right heart catheterization was done with a pigtail catheter. Left PA pressure 31/20 mmHg. Right PA pressure 32/17 mmHg. Main pulmonary artery 33/17 mmHg. RV pressure 35/5 mmHg. RVEDP 11 mmHg. Right atrial pressure 10 mmHg. CONCLUSION: extensive bilateral pulmonary embolism with shock, status post intra-arterial thrombolytic therapy. Transfer to the ICU for further management. I discussed with Dr. Cleveland and Dr. Ocampo. Heparin/Eliquis can probably be started after 4 hours, will defer to Dr. Ocampo. Dina Castanon MD, FACP, FACC, [facility] Vascular Medicine and Endovascular Interventions Ulises CASTANON MD May 14, 2019 10:34
--- NOTE | 2019-05-14 10:36 | NUR ---
REFUGIO WESLEY admitted to room CU7-1, with an admitting diagnosis of PE, AFIB W/ RVR, on 05/14/19 from [employer] [facility] via BED, accompanied by STAFF.REFUGIO WESLEY introduced to surroundings, call light, bed controls, phone, TV, temperature control, lights, meal times, smoking policy, visitor policy, side rail policy, bathrooms and showers. Patient Rights given to patient in the handbook. REFUGIO WESLEY verbalizes understanding that [facility] is not responsible for the loss or damage to any personal effects or valuables that are kept in the patients posession during their hospitalization. The following Patient Care Plans were discussed with the PT: Discharge Planning, IMPAIRED GAS EXCHANGE,HIGH RISK BLEEDING, and ANXIETY. REFUGIO WESLEY verbalizes understanding of Interdisciplinary Patient Education. Patient and family were informed about the Rapid Response Team and its purpose.
[2019-05-14] MEDS ORDERED: PATIENT MAY USE OWN MEDS, ALL PO SCH (10:45)
[2019-05-14] MEDS ORDERED: HEParin 1000 UNIT/ML (10ML VIAL) FOR BOLUS IV SCH ×2 (11:45→21:00)
[2019-05-14 11:54] LABS: BASOPHILS % (AUTO) 0 % (0-10); EOSINOPHILS % (AUTO) 0 % (0-10); HEMATOCRIT 34 % (40-54); HEMOGLOBIN 10.2 G/DL (13.3-17.7); LYMPHOCYTES # (AUTO) 0.3 X 10^3 (1.0-4.0); LYMPHOCYTES % (AUTO) 6 % (12-44); MEAN CORPUSCULAR HEMOGLOBIN 28 PG (25-34); MEAN CORPUSCULAR HGB CONC 30 G/DL (32-36); MEAN CORPUSCULAR VOLUME 92 FL (80-99); MEAN PLATELET VOLUME 8.8 FL (7.4-10.4); MONOCYTES # (AUTO) 0.2 X 10^3 (0.0-1.0); MONOCYTES % (AUTO) 5 % (0-12); NEUTROPHILS # (AUTO) 4.1 X 10^3 (1.8-7.8); NEUTROPHILS % (AUTO) 89 % (42-75); PLATELET COUNT 131 10^3/uL (130-400); WHITE BLOOD COUNT 4.6 10^3/uL (4.3-11.0)
[2019-05-14 12:13] LABS: ALANINE AMINOTRANSFERASE 15 U/L (0-55); ALBUMIN 3.3 GM/DL (3.2-4.5); ALKALINE PHOSPHATASE 133 U/L (40-136); BILIRUBIN,TOTAL 0.5 MG/DL (0.1-1.0); BUN/CREATININE RATIO 30; CALCIUM 8.2 MG/DL (8.5-10.1); CARBON DIOXIDE 23 MMOL/L (21-32); CHLORIDE 102 MMOL/L (98-107); GFR ESTIMATED > 60; GLUCOSE 193 MG/DL (70-105); SODIUM 137 MMOL/L (135-145); TOTAL PROTEIN 5.5 GM/DL (6.4-8.2)
[2019-05-14 12:34] LABS: INR 1.1 (0.8-1.4); PROTHROMBIN TIME PATIENT 14.8 SEC (12.2-14.7)
--- NOTE | 2019-05-14 12:55 | NUR ---
DR EASTMAN INFORMED OF RECENT LABS AND BP.
[2019-05-14] MEDS: NS IV 1000 ML 1,000 ML IV SCH ×3 (13:01→22:23)
[2019-05-14] MEDS: HEParin DRIP 25000 UNIT/500ML 500 ML IV SCH (13:02)
[2019-05-14 13:16] LABS: EOSINOPHILS % (MANUAL) 1 %; LYMPHOCYTES % (MANUAL) 9 %; MONOCYTES % (MANUAL) 3 %; NEUTROPHILS % (MANUAL) 87 %
[2019-05-14 13:17] LABS: ANISOCYTOSIS SLIGHT; HYPOCHROMASIA SLIGHT; POLYCHROMASIA SLIGHT; RBC MORPH SEE REFERENCE
[2019-05-14] MEDS ORDERED: DEXA4TAB PO (14:07)
[2019-05-14] MEDS ORDERED: MULT1TAB69 PO (14:07)
[2019-05-14] MEDS ORDERED: ONDA4TAB10 PO (14:07)
[2019-05-14] MEDS ORDERED: PANT40TA3 PO (14:07)
[2019-05-14] MEDS ORDERED: ACET-2267 PO (14:07)
[2019-05-14] MEDS ORDERED: ZOLP10TA5 PO (14:07)
[2019-05-14] MEDS ORDERED: ATOR10TA66 PO (14:07)
[2019-05-14] MEDS ORDERED: GABA-490 PO (14:07)
--- NOTE | 2019-05-14 14:11 | NUR ---
WENT OVER THE EXT MED HX WITH THE PATIENT AND FAMILY. THEY VERIFIED HOW HE TAKES EACH MEDICATION. HE HAS RECENTLY FILLED TWO STRENGTHS OF GABAPENTIN. 04-23-19 HE FILLED GABAPENTIN 400MG #90 FOR A 30 DAY SUPPLY AT , THEN AT [facility] FILLED 05-11-19 GABAPENTIN 300MG #60 FOR 30 DAYS. HE STATES THE 300MG WAS FILLED WHEN HE WAS GETTING HIS REFILLS AUTHORIZED THROUGH DR. MARTINEZ AND HE THINKS THE STRENGTH WAS CHANGED IN ERROR. HE HAS BEEN TAKING THE 400MG - HOWEVER HE IS ONLY TAKING THE 400MG BID. I UPDATED THE MED REC TO REFLECT WHAT HE HAS BEEN TAKING. HE IS PAST DUE FOR REFILL ON PROTONIX, IT WAS LAST FILLED 40MG #30 03-18-19 - HE STATES HE SHOULD STILL BE TAKING THIS AND IT WAS JUST MISSED WITH ALL THE CHANGES AND THINGS GOING ON RECENTLY, HE WILL GET IT REFILLED AND RESUMED WHEN HE IS DISCHARGED. HE STATES THEY HAVE STOPPED HIS BLOOD PRESSURE MEDICATIONS SINCE SURGERY BUT ASSUMES EVENTUALLY THEY WILL RESUME THEM. FOR NOW HE HAS NOT BEEN TAKING THEM SO I DID NOT INCLUDE THEM ON THE MED REC. ACCORDING TO THE EXT MED HX THEY WERE LAST FILLED: 01-08-19 LOSARTAN 50MG #30 12-26-18 METOPROLOL TARTRATE 50MG #60 HE TAKES TYLENOL PRN AND A MTV DAILY OTC.
--- NOTE | 2019-05-14 14:28 | NUR ---
PT C/O CP 02/23 EKG OBTAIN AND SENT TO DR BLOUNT.
[2019-05-14] MEDS ORDERED: NON-FORMULARY MEDICATION 1 EA EA (Oxycodone HCl 10 MG) PO PRN (15:00)
--- NOTE | 2019-05-14 15:09 | Diagnostic Imaging Report ---
INDICATION: Pulmonary emboli. EXAMINATION: Bilateral lower extremity venous Doppler study was performed in the routine fashion with color flow Doppler and waveform analysis. FINDINGS: On the right side, the common femoral vein, superficial femoral vein and popliteal vein were patent as was the profunda femoris vein. Visualized portions of the tibial veins on the right side are patent. On the left side, the common femoral vein, profundus femoris vein and SFV are patent. There is deep vein thrombosis involving the left popliteal vein and peroneal trunk. IMPRESSION: Evidence of deep vein thrombosis involving the left popliteal vein and peroneal vein. Remaining structures are patent. Dictated by: Dictated on workstation # [id number]
[2019-05-14] MEDS: inSUlin ASPART (NovoLOG) 1 UNIT/0.01 ML (CHARGE PER UNIT) SC SCH ×2 (16:12→20:30)
--- NOTE | 2019-05-14 18:37 | History & Physicial ---
History of Present Illness History of Present Illness Reason for visit/HPI Patient had dizziness, syncope and fall at home. Patient heart was going quick. Patient brought out by EMS emergency room. Patient has history of B-cell lymphoma. Patient wants back surgery to them likely. Patient in atrial fibrillation with RVR. Patient hypotensive. Has lactic acidosis. Non-STEMI in August 17. Patient shock. Patient has metastatic lung cancer. Patient to start chemotherapy. Patient diabetic. Patient awake this evening and feeling better. Patient has bilateral pulmonary embolisms Patient has DVT of left leg Date of Admission Time Seen by a Provider: 18:32 I consulted on this patient on 05/14/19 18:28 Attending Physician Bertin Martinez DO Admitting Physician Bertin Martinez DO Consult Allergies and Home Medications Allergies Coded Allergies: No Known Drug Allergies (Unverified , 07/25/15) Home Medications Acetaminophen 500 Mg Tablet, 500-1,000 MG PO Q4H PRN for PAIN-MILD, (Reported) Allopurinol 300 Mg Tablet, 300 MG PO DAILY, (Reported) Atorvastatin Calcium 10 Mg Tablet, 10 MG PO HS, (Reported) Cyclobenzaprine HCl 10 Mg Tablet, 10 MG PO TID PRN for MUSCLE SPASMS, (Reported) Dexamethasone 4 Mg Tablet, 20 MG PO DAILY, (Reported) TAKES 5 (4MG) TABLETS Fentanyl 1 Each Patch.td72, 25 MCG TD Q72H, (Reported) Gabapentin 400 Mg Capsule, 400 MG PO BID, (Reported) Metformin HCl 500 Mg Tab.er.24h, 500 MG PO BID, (Reported) Multivitamin 1 Each Tablet, 1 TAB PO DAILY, (Reported) Ondansetron HCl 4 Mg Tablet, 4 MG PO TID PRN for NAUSEA/VOMITING-1ST LINE, (Reported) Oxycodone HCl 10 Mg Tablet, 10 MG PO QID PRN for PAIN-SEVERE, (Reported) Pantoprazole Sodium 40 Mg Tablet.dr, 40 MG PO DAILY, (Reported) Zolpidem Tartrate 10 Mg Tablet, 10 MG PO HS, (Reported) Patient Home Medication List Home Medication List Reviewed: Yes Past [id number]-[id number]-Ydwmex Hx Patient Social History Marrital Status: Employed/Student: employed Alcohol Use: Denies Use Recreational Drug Use: No Smoking Status: Former Smoker 2nd Hand Smoke Exposure: No Recent Foreign Travel: No Contact w/other who traveled: No Recent Hopitalizations: Yes (back sx 04/26/19) Recent Infectious Disease Expo: No Immunizations Up To Date Tetanus Booster (TDap): Unknown Date of Influenza Vaccine: Jul 28, 2015 Seasonal Allergies Seasonal Allergies: Yes Surgeries Yes Orthopedic Respiratory No Cardiovascular Yes High Cholesterol, Hypertension, Irregular Heartbeat Neurological No Neuropathy Reproductive System Hx Reproductive Disorders: No Genitourinary No Gastrointestinal Yes Hepatitis Musculoskeletal Yes Arthritis, Chronic Back Pain Endocrine History of Endocrine Disorders: Yes Endocrine Disorders: Diabetes, Non-Insulin dep HEENT History of HEENT Disorders: No Cancer Yes Lymphoma Psychosocial History of Psychiatric Problem: No Integumentary History of Skin or Integumenta: No Blood Transfusions History of Blood Disorders: No Family Medical History Significant Family History: CAD Under 55 Years Old, Hypertension Review of Systems Constitutional: malaise, weakness, other (Metastatic bone cancer) EENTM: no symptoms reported Respiratory: no symptoms reported Cardiovascular: palpitations, other (A. fib with RVR) Gastrointestinal: no symptoms reported Genitourinary: no symptoms reported Physical Exam Vital Signs Vital Signs - First Documented Capillary Refill : Less Than 3 Seconds Height, Weight, BMI Height: 6'1.00" Weight: 259lbs. 15.0oz. 117.754862we; 34.3 BMI Method:Stated General Appearance: No Apparent Distress, WD/WN Eyes: Bilateral Eye Normal Inspection HEENT: Normal ENT Inspection Neck: Full Range of Motion, Normal Inspection Respiratory: Lungs Clear, No Accessory Muscle Use, No Respiratory Distress Cardiovascular: Irregularly Irregular Gastrointestinal: Normal Bowel Sounds, Non Tender, Soft Assessment/Plan Assessment and Plan Bilateral pulmonary embolism. DVT of left leg. Hypoxia. Lactic acidosis. B-cell lymphoma. 2 recent back surgeries. Atrial fib with RVR. Hypotension. Shock. History of non-STEMI in August 17. Diabetes Admission Diagnosis Admission Status: Inpatient Order (span 2 midnights) Reason for Inpatient Admission: A. fib with RVR. Bilateral pulmonary embolisms Metastatic colon cancer. B-cell lymphoma. Clinical Quality Measures DVT/VTE Risk/Contraindication: Risk Factor Score Per Nursin RFS Level Per Nursing on Admit: 4+=Very High BERTIN MARTINEZ DO May 14, 2019 18:37
[2019-05-14] MEDS: ATORVASTATIN 10 MG (LIPITOR) TABLET PO SCH (20:30)
[2019-05-14] MEDS: HEParin 1000 UNIT/ML (10ML VIAL) FOR BOLUS IV SCH (21:30)
[2019-05-15] VITALS (47 sets, daily range): BP systolic 98–152; BP diastolic 61–143
[2019-05-15 03:53] LABS: BASOPHILS % (AUTO) 0 % (0-10); EOSINOPHILS % (AUTO) 0 % (0-10); HEMATOCRIT 34 % (40-54); HEMOGLOBIN 10.7 G/DL (13.3-17.7); LYMPHOCYTES # (AUTO) 0.4 X 10^3 (1.0-4.0); LYMPHOCYTES % (AUTO) 7 % (12-44); MEAN CORPUSCULAR HEMOGLOBIN 29 PG (25-34); MEAN CORPUSCULAR HGB CONC 31 G/DL (32-36); MEAN CORPUSCULAR VOLUME 91 FL (80-99); MEAN PLATELET VOLUME 9.8 FL (7.4-10.4); MONOCYTES # (AUTO) 0.4 X 10^3 (0.0-1.0); MONOCYTES % (AUTO) 8 % (0-12); NEUTROPHILS % (AUTO) 85 % (42-75); PLATELET COUNT 146 10^3/uL (130-400); RED CELL DISTRIBUTION WIDTH 19.9 % (10.0-14.5); WHITE BLOOD COUNT 4.8 10^3/uL (4.3-11.0)
[2019-05-15 03:55] LABS: BUN/CREATININE RATIO 23; CALCIUM 8.6 MG/DL (8.5-10.1); CARBON DIOXIDE 19 MMOL/L (21-32); CHLORIDE 102 MMOL/L (98-107); CREATININE SERUM 0.64 MG/DL (0.60-1.30); GFR ESTIMATED > 60; GLUCOSE 146 MG/DL (70-105); PHOSPHORUS 3.6 MG/DL (2.3-4.7); POTASSIUM 4.4 MMOL/L (3.6-5.0); SODIUM 137 MMOL/L (135-145)
[2019-05-15] MEDS: POTASSIUM CL 10MEQ/50ML IVPB 50 ML IV SCH (04:21)
[2019-05-15] MEDS: KCL 20 MEQ TAB (K-DUR) PO SCH (04:22)
[2019-05-15] MEDS: inSUlin ASPART (NovoLOG) 1 UNIT/0.01 ML (CHARGE PER UNIT) SC SCH ×4 (04:22→21:45)
[2019-05-15] MEDS: MAGNESIUM 1 GM/100 ML IVPB 100 ML IV SCH (04:22)
--- NOTE | 2019-05-15 04:54 | Pulmonary Consultation ---
History of Present Illness History of Present Illness Date of Consultation 05/14/19 -- Late note. Today is 05/15/19 04:54 Time Seen by Provider: 06:16 Date of Admission History of Present Illness 59yo with B Cell Lymphoma and recent back surgery presented to ED secondary to acute worsening respiratory distress, and palpitations. PT was found to be hypoxic and hypotensive in the ED. Stat CTA of chest shows acute bilateral large PE. pt due to start chemotherapy and radiation therapy per the but has not started that yet. I am consulted for pulmonary ICU management. Allergies and Home Medications Allergies Coded Allergies: No Known Drug Allergies (Unverified , 07/25/15) Home Medications Acetaminophen 500 Mg Tablet, 500-1,000 MG PO Q4H PRN for PAIN-MILD, (Reported) Allopurinol 300 Mg Tablet, 300 MG PO DAILY, (Reported) Atorvastatin Calcium 10 Mg Tablet, 10 MG PO HS, (Reported) Cyclobenzaprine HCl 10 Mg Tablet, 10 MG PO TID PRN for MUSCLE SPASMS, (Reported) Dexamethasone 4 Mg Tablet, 20 MG PO DAILY, (Reported) TAKES 5 (4MG) TABLETS Fentanyl 1 Each Patch.td72, 25 MCG TD Q72H, (Reported) Gabapentin 400 Mg Capsule, 400 MG PO BID, (Reported) Metformin HCl 500 Mg Tab.er.24h, 500 MG PO BID, (Reported) Multivitamin 1 Each Tablet, 1 TAB PO DAILY, (Reported) Ondansetron HCl 4 Mg Tablet, 4 MG PO TID PRN for NAUSEA/VOMITING-1ST LINE, (Reported) Oxycodone HCl 10 Mg Tablet, 10 MG PO QID PRN for PAIN-SEVERE, (Reported) Pantoprazole Sodium 40 Mg Tablet.dr, 40 MG PO DAILY, (Reported) Zolpidem Tartrate 10 Mg Tablet, 10 MG PO HS, (Reported) Past Kltchvm-[id number]-Wnamxi Hx Past Med/Social Hx: Reviewed Nursing Past Med/Soc Hx Patient Social History Alcohol Use: Denies Use Recreational Drug Use: No Smoking Status: Former Smoker 2nd Hand Smoke Exposure: No Recent Foreign Travel: No Contact w/Someone Who Travel: No Recent Infectious Disease Expo: No Recent Hopitalizations: Yes (back sx 04/26/19) Physical Abuse: No Sexual Abuse: No Mistreated: No Fear: No Immunizations Up To Date Tetanus Booster (TDap): Unknown Date of Influenza Vaccine: Jul 28, 2015 Seasonal Allergies Seasonal Allergies: Yes Past Medical History Surgeries: Yes Orthopedic Respiratory: No Cardiac: Yes High Cholesterol, Hypertension, Irregular Heartbeat Neurological: No Neuropathy Reproductive Disorders: No Genitourinary: No Gastrointestinal: Yes Hepatitis Musculoskeletal: Yes Arthritis, Chronic Back Pain Endocrine: Yes Diabetes, Non-Insulin dep HEENT: No Cancer: Yes Lymphoma Psychosocial: No Integumentary: No Blood Disorders: No Family Medical History Reviewed Nursing Family Hx CAD Under 55 Years Old, Hypertension Review of Systems Time Seen by Provider: 06:29 Constitutional: Chills, Sweats, Weakness, Malaise, Other; No: Fever Eyes: No: Pain, Vision change, Conjunctivae inflammation, Eyelid inflammation, Other, Redness ENT: No: Ear pain, Ear discharge, Nose pain, Nose discharge, Nose congestion, Mouth pain, Mouth swelling, Throat pain, Throat swelling, Other Respiratory: Cough, Dry, Shortness of breath, SOB with excertion, Pleuritic Pain; No: Wheezing, Hemoptysis Cardiovascular: Palpitations, Paroxysmal Noc. Dyspnea, Lt Headedness; No: Chest Pain, Orthopnea Gastrointestinal: No: Nausea, Vomiting, Abdominal Pain, Diarrhea, Constipation, Melena, Hematochezia, Other Genitourinary: No Dysuria, No Frequency, No Incontinence, No Hematuria, No Retention, No Other Sepsis Event Evaluation Height, Weight, BMI Height: 6'1.00" Weight: 204lbs. 3.0oz. 92.842223fa; 34.3 BMI Method:Stated Exam Exam Vital Signs Date Time Temp Pulse Resp B/P (MAP) Pulse Ox O2 Delivery O2 Flow Rate FiO2 05/15/19 04:00 98 Room Air 05/15/19 04:00 87 16 117/77 (90) 100 Room Air 05/15/19 03:00 86 16 116/81 (93) 100 Room Air 05/15/19 02:00 88 16 114/84 (94) 100 Room Air 05/15/19 01:00 87 16 113/83 (93) 98 Room Air 05/15/19 01:00 96 05/15/19 00:00 99 Room Air 05/15/19 00:00 97 14 104/86 (92) 99 Room Air 05/14/19 23:00 108 14 116/70 (85) 99 Room Air 05/14/19 22:00 112 16 119/81 (94) 96 Room Air 05/14/19 21:30 Nasal Cannula 3.00 05/14/19 21:29 103 105/75 99 Room Air 05/14/19 21:00 104 17 103/80 (88) 96 Room Air 05/14/19 20:00 106 22 99/83 (88) 96 Room Air 05/14/19 20:00 99 Room Air 05/14/19 20:00 97.0 05/14/19 19:00 118 05/14/19 19:00 107 20 106/78 (87) 96 Room Air 05/14/19 18:00 113 19 100/72 (81) 97 Room Air 05/14/19 17:00 110 25 110/85 (93) 97 Room Air 05/14/19 16:00 97 15 98/73 (81) 97 Room Air 05/14/19 16:00 97.6 05/14/19 15:30 97 Room Air 05/14/19 15:00 109 46 91/68 (76) 96 Room Air 05/14/19 14:30 102 22 97/63 (74) Room Air 05/14/19 14:15 102 16 84/61 (69) Room Air 05/14/19 14:00 123 23 86/72 (77) 94 Room Air 05/14/19 13:45 118 23 90/47 (61) 94 Room Air 05/14/19 13:30 112 22 82/60 (67) 94 Room Air 05/14/19 13:30 112 22 82/60 (67) 94 Room Air 05/14/19 13:15 105 17 100/64 (76) 97 High Flow N/C 3.00 05/14/19 13:00 99 05/14/19 13:00 104 13 88/74 (79) 98 High Flow N/C 3.00 05/14/19 12:30 96 12 81/68 (72) 99 High Flow N/C 5.00 05/14/19 12:15 102 27 83/71 (75) 100 OxyMask 10.00 05/14/19 12:00 OxyMask 10.00 05/14/19 12:00 97.0 05/14/19 12:00 101 17 85/68 (74) 100 OxyMask 10.00 05/14/19 11:45 110 17 81/70 (74) 100 OxyMask 10.00 05/14/19 11:30 105 17 93/85 (88) 100 OxyMask 10.00 05/14/19 11:27 100 OxyMask 10.00 05/14/19 11:15 116 17 90/73 (79) 100 OxyMask 10.00 05/14/19 11:00 108 15 82/55 (64) 100 OxyMask 10.00 05/14/19 10:45 115 27 81/65 (70) 95 OxyMask 10.00 05/14/19 10:36 113 05/14/19 09:46 97.1 121 16 81/59 90 OxyMask 12.00 05/14/19 09:33 128 18 82/68 (73) 93 OxyMask 12.00 05/14/19 06:53 96.9 84 24 89/76 87 Nasal Cannula 5.00 05/14/19 06:35 87 Nasal Cannula 5.00 05/14/19 06:35 96.9 84 24 89/76 (80) 87 Nasal Cannula 5.00 I & O 05/15/19 07:00 Intake Total 6920 ml Output Total 3100 ml Balance 3820 ml Height & Weight Height: 6'1.00" Weight: 204lbs. 3.0oz. 92.563696yl; 34.3 BMI Method:Stated General Appearance: No Apparent Distress, WD/WN HEENT: Normal ENT Inspection Neck: Full Range of Motion, Normal Inspection Respiratory: Lungs Clear, No Accessory Muscle Use, No Respiratory Distress Cardiovascular: Irregularly Irregular Capillary Refill: Less Than 3 Seconds Extremity: Normal Range of Motion, Non Tender, Pedal Edema (left greater than right) Neurologic/Psychiatric: Alert, Oriented x3 Results Lab Laboratory Tests 05/14/19 06:45 05/14/19 11:45 05/15/19 03:24 Assessment/Plan Assessment/Plan Acute respiratory distress -Continue oxygen Acute Bilateral PE with hypotension and hypoxia -PT has had 3 liters of oxygen and is still hypotensive -Consult Dr. Castanon for intravascular TPA. -Risk and benefits explained to pt and family -Start hep gtt after TPA Hypotension -Continue IVF Metabolic lactic acidosis -IVF -Monitor LIAM EASTMAN DO May 15, 2019 04:54
--- NOTE | 2019-05-15 04:54 | Pulmonary Progress Note ---
Subjective Time Seen by a Provider: 06:33 Subjective/Events-last exam Pt states he feels better. Sepsis Event Evaluation Height, Weight, BMI Height: 6'1.00" Weight: 204lbs. 3.0oz. 92.845666jv; 34.3 BMI Method:Stated Focused Exam Lactate Level 05/14/19 06:55: Lactic Acid Level 3.99*H 05/14/19 08:48: Lactic Acid Level 4.18*H 05/15/19 03:24: Lactic Acid Level 3.35*H Lactic Acid Level Laboratory Tests Test 05/15/19 03:24 Lactic Acid Level 3.35 MMOL/L (0.50-2.00) *H Exam Exam Vital Signs Date Time Temp Pulse Resp B/P (MAP) Pulse Ox O2 Delivery O2 Flow Rate FiO2 05/15/19 04:00 98 Room Air 05/15/19 04:00 87 16 117/77 (90) 100 Room Air 05/15/19 03:00 86 16 116/81 (93) 100 Room Air 05/15/19 02:00 88 16 114/84 (94) 100 Room Air 05/15/19 01:00 87 16 113/83 (93) 98 Room Air 05/15/19 01:00 96 05/15/19 00:00 99 Room Air 05/15/19 00:00 97 14 104/86 (92) 99 Room Air 05/14/19 23:00 108 14 116/70 (85) 99 Room Air 05/14/19 22:00 112 16 119/81 (94) 96 Room Air 05/14/19 21:30 Nasal Cannula 3.00 05/14/19 21:29 103 105/75 99 Room Air 05/14/19 21:00 104 17 103/80 (88) 96 Room Air 05/14/19 20:00 106 22 99/83 (88) 96 Room Air 05/14/19 20:00 99 Room Air 05/14/19 20:00 97.0 05/14/19 19:00 118 05/14/19 19:00 107 20 106/78 (87) 96 Room Air 05/14/19 18:00 113 19 100/72 (81) 97 Room Air 05/14/19 17:00 110 25 110/85 (93) 97 Room Air 05/14/19 16:00 97 15 98/73 (81) 97 Room Air 05/14/19 16:00 97.6 05/14/19 15:30 97 Room Air 05/14/19 15:00 109 46 91/68 (76) 96 Room Air 05/14/19 14:30 102 22 97/63 (74) Room Air 05/14/19 14:15 102 16 84/61 (69) Room Air 05/14/19 14:00 123 23 86/72 (77) 94 Room Air 05/14/19 13:45 118 23 90/47 (61) 94 Room Air 05/14/19 13:30 112 22 82/60 (67) 94 Room Air 05/14/19 13:30 112 22 82/60 (67) 94 Room Air 05/14/19 13:15 105 17 100/64 (76) 97 High Flow N/C 3.00 05/14/19 13:00 99 05/14/19 13:00 104 13 88/74 (79) 98 High Flow N/C 3.00 05/14/19 12:30 96 12 81/68 (72) 99 High Flow N/C 5.00 05/14/19 12:15 102 27 83/71 (75) 100 OxyMask 10.00 05/14/19 12:00 OxyMask 10.00 05/14/19 12:00 97.0 05/14/19 12:00 101 17 85/68 (74) 100 OxyMask 10.00 05/14/19 11:45 110 17 81/70 (74) 100 OxyMask 10.00 05/14/19 11:30 105 17 93/85 (88) 100 OxyMask 10.00 05/14/19 11:27 100 OxyMask 10.00 05/14/19 11:15 116 17 90/73 (79) 100 OxyMask 10.00 05/14/19 11:00 108 15 82/55 (64) 100 OxyMask 10.00 05/14/19 10:45 115 27 81/65 (70) 95 OxyMask 10.00 05/14/19 10:36 113 05/14/19 09:46 97.1 121 16 81/59 90 OxyMask 12.00 05/14/19 09:33 128 18 82/68 (73) 93 OxyMask 12.00 05/14/19 06:53 96.9 84 24 89/76 87 Nasal Cannula 5.00 05/14/19 06:35 87 Nasal Cannula 5.00 05/14/19 06:35 96.9 84 24 89/76 (80) 87 Nasal Cannula 5.00 I & O 05/15/19 07:00 Intake Total 6920 ml Output Total 3100 ml Balance 3820 ml Height & Weight Height: 6'1.00" Weight: 204lbs. 3.0oz. 92.812749sv; 34.3 BMI Method:Stated General Appearance: No Apparent Distress, WD/WN HEENT: Normal ENT Inspection Neck: Full Range of Motion, Normal Inspection Respiratory: Lungs Clear, No Accessory Muscle Use, No Respiratory Distress Cardiovascular: Irregularly Irregular Capillary Refill: Less Than 3 Seconds Extremity: Normal Range of Motion, Non Tender, Pedal Edema (left greater than right) Neurologic/Psychiatric: Alert, Oriented x3 Results Lab Laboratory Tests 05/14/19 06:45 05/14/19 11:45 05/15/19 03:24 Assessment/Plan Assessment/Plan Acute respiratory distress-- much improved s/p TPA -Continue oxygen Acute Bilateral PE with hypotension and hypoxia s/p intravascular TPA -Start hep gtt- change to PO today -Pt will probably need life long anticoagulation secondary to cancer. LLE DVT Hypotension - resolved -Continue IVF Metabolic lactic acidosis -IVF -Monitor Afib RVR -Pt is still on Cardizem gtt LIAM EASTMAN DO May 15, 2019 04:54
[2019-05-15] MEDS: NS IV 1000 ML 1,000 ML IV SCH ×2 (05:07→15:25)
[2019-05-15] MEDS: PANTOPRAZOLE 40 MG (PROTONIX) TAB PO SCH (05:08)
[2019-05-15] MEDS: MULTIVIT W/MINERALS TAB (THERAGRAN M) PO SCH (05:26)
--- NOTE | 2019-05-15 07:30 | Diagnostic Imaging Report ---
EXAM: CHEST 1 VIEW, AP/PA ONLY INDICATION: Pulmonary embolism. Atrophic ablation. COMPARISON: 05/14/2019. FINDINGS: Normal heart size and central pulmonary vascularity. Calcified aorta. Subsegmental atelectasis in the lung bases, greater on the right. No pleural effusion or pneumothorax. IMPRESSION: Subsegmental atelectasis in lung bases, greater on the right. This has mildly progressed since the prior exam on the right. Dictated by: Dictated on workstation # [id number]
--- NOTE | 2019-05-15 07:41 | Progress Note ---
Subjective Time Seen by a Provider: 07:36 Subjective/Events-last exam Patient is feeling better and doing better. Patient not having any chest pain and breathing good. Patient still in atrial fibrillation. Pain is under control with the oxycodone.. Troponin minimally elevated but coming down. Blood pressure better. Lungs clear Focused Exam Lactate Level 05/14/19 08:48: Lactic Acid Level 4.18*H 05/15/19 03:24: Lactic Acid Level 3.35*H 05/15/19 05:25: Lactic Acid Level 3.32*H Lactic Acid Level Laboratory Tests Test 05/15/19 05:25 Lactic Acid Level 3.32 MMOL/L (0.50-2.00) *H Objective Exam Vital Signs Date Time Temp Pulse Resp B/P (MAP) Pulse Ox O2 Delivery O2 Flow Rate FiO2 05/15/19 06:00 93 20 118/73 (88) 100 Room Air 05/15/19 05:00 88 25 121/99 (106) 100 Room Air 05/15/19 04:00 98 Room Air 05/15/19 04:00 87 16 117/77 (90) 100 Room Air 05/15/19 03:00 86 16 116/81 (93) 100 Room Air 05/15/19 02:00 88 16 114/84 (94) 100 Room Air 05/15/19 01:00 87 16 113/83 (93) 98 Room Air 05/15/19 01:00 96 05/15/19 00:00 99 Room Air 05/15/19 00:00 97 14 104/86 (92) 99 Room Air 05/14/19 23:00 108 14 116/70 (85) 99 Room Air 05/14/19 22:00 112 16 119/81 (94) 96 Room Air 05/14/19 21:30 Nasal Cannula 3.00 05/14/19 21:29 103 105/75 99 Room Air 05/14/19 21:00 104 17 103/80 (88) 96 Room Air 05/14/19 20:00 106 22 99/83 (88) 96 Room Air 05/14/19 20:00 99 Room Air 05/14/19 20:00 97.0 05/14/19 19:00 118 05/14/19 19:00 107 20 106/78 (87) 96 Room Air 8/29/19 18:00 113 19 100/72 (81) 97 Room Air 05/14/19 17:00 110 25 110/85 (93) 97 Room Air 05/14/19 16:00 97 15 98/73 (81) 97 Room Air 05/14/19 16:00 97.6 05/14/19 15:30 97 Room Air 05/14/19 15:00 109 46 91/68 (76) 96 Room Air 05/14/19 14:30 102 22 97/63 (74) Room Air 05/14/19 14:15 102 16 84/61 (69) Room Air 05/14/19 14:00 123 23 86/72 (77) 94 Room Air 05/14/19 13:45 118 23 90/47 (61) 94 Room Air 05/14/19 13:30 112 22 82/60 (67) 94 Room Air 05/14/19 13:30 112 22 82/60 (67) 94 Room Air 05/14/19 13:15 105 17 100/64 (76) 97 High Flow N/C 3.00 05/14/19 13:00 99 05/14/19 13:00 104 13 88/74 (79) 98 High Flow N/C 3.00 05/14/19 12:30 96 12 81/68 (72) 99 High Flow N/C 5.00 05/14/19 12:15 102 27 83/71 (75) 100 OxyMask 10.00 05/14/19 12:00 OxyMask 10.00 05/14/19 12:00 97.0 05/14/19 12:00 101 17 85/68 (74) 100 OxyMask 10.00 05/14/19 11:45 110 17 81/70 (74) 100 OxyMask 10.00 05/14/19 11:30 105 17 93/85 (88) 100 OxyMask 10.00 05/14/19 11:27 100 OxyMask 10.00 05/14/19 11:15 116 17 90/73 (79) 100 OxyMask 10.00 05/14/19 11:00 108 15 82/55 (64) 100 OxyMask 10.00 05/14/19 10:45 115 27 81/65 (70) 95 OxyMask 10.00 05/14/19 10:36 113 05/14/19 09:46 97.1 121 16 81/59 90 OxyMask 12.00 05/14/19 09:33 128 18 82/68 (73) 93 OxyMask 12.00 I & O 05/15/19 07:00 Intake Total 8220 ml Output Total 4100 ml Balance 4120 ml Capillary Refill : Less Than 3 Seconds General Appearance: No Apparent Distress, WD/WN HEENT: Normal ENT Inspection Neck: Full Range of Motion, Normal Inspection Respiratory: Lungs Clear, No Accessory Muscle Use, No Respiratory Distress Cardiovascular: Irregularly Irregular Gastrointestinal: non tender, soft Results Lab Laboratory Tests 05/14/19 11:45 05/15/19 03:24 Laboratory Tests 05/14/19 08:48: Lactic Acid Level 4.18*H 05/14/19 08:52: Blood Gas Puncture Site R RADIAL, Blood Gas Patient Temperature 97.9, Arterial Blood pH 7.40, Arterial Blood Partial Pressure CO2 36, Arterial Blood Partial Pressure O2 74L, Arterial Blood HCO3 22L, Arterial Blood Total CO2 23.0, Art erial Blood Oxygen Saturation 95, Arterial Blood Base Excess -2.2, Vazquez Test YES-POS, Blood Gas Ventilator Setting NO, Blood Gas Inspired Oxygen 12 05/14/19 09:15: Urine Color YELLOW, Urine Clarity CLEAR, Urine pH 6.5, Urine Specific Wheatley 1.020, Urine Protein NEGATIVE, Urine Glucose (UA) NEGATIVE, Urine Ketones NEGATIVE, Urine Nitrite NEGATIVE, Urine Bilirubin NEGATIVE, Urine Urobilinogen NORMAL, Urine Leukocyte Esterase NEGATIVE, Urine RBC (Auto) NEGATIVE, Urine RBC NONE, Urine WBC NONE, Urine Crystals NONE, Urine Bacteria NEGATIVE, Urine Casts NONE, Urine Mucus NEGATIVE, Urine Culture Indicated CULTURE PENDING 05/14/19 11:45: White Blood Count 4.6, Red Blood Count 3.66L, Hemoglobin 10.2L, Hematocrit 34L, Mean Corpuscular Volume 92, Mean Corpuscular Hemoglobin 28, Mean Corpuscular Hemoglobin Concent 30L, Red Cell Distribution Width 20.0H, Platelet Count 131, Mean Platelet Volume 8.8, Neutrophils (%) (Auto) 89H, Lymphocytes (%) (Auto) 6L, Monocytes (%) (Auto) 5, Eosinophils (%) (Auto) 0, Basophils (%) (Auto) 0, Neutrophils # (Auto) 4.1, Lymphocytes # (Auto) 0.3L, Monocytes # (Auto) 0.2, Eosinophils # (Auto) 0.0, Basophils # (Auto) 0.0, Neutrophils % (Manual) 87, Lymphocytes % (Manual) 9, Monocytes % (Manual) 3, Eosinophils % (Manual) 1, Polychromasia SLIGHT, Hypochromasia SLIGHT, Anisocytosis SLIGHT, Blood Morphology Comment SEE REFERENCE, Prothrombin Time 14.8H, INR Comment 1.1, Activated Partial Thromboplast Time 26, Sodium Level 137, Potassium Level 5.0, Chloride Level 102, Carbon Dioxide Level 23, Anion Gap 12, Blood Urea Nitrogen 18, Creatinine 0.60, Estimat Glomerular Filtration Rate > 60, BUN/Creatinine Ratio 30, Glucose Level 193H, Calcium Level 8.2L, Corrected Calcium 8.8, Total Bilirubin 0.5, Aspartate Amino Transf (AST/SGOT) 17, Alanine Aminotransferase (ALT/SGPT) 15, Alkaline Phosphatase 133, Total Protein 5.5L, Albumin 3.3 05/14/19 15:10: Troponin I 0.113H 05/14/19 16:05: Glucometer 250H 05/14/19 20:00: Troponin I 0.079H, Activated Partial Thromboplast Time 44H 05/14/19 20:20: Glucometer 196H 05/15/19 03:24: White Blood Count 4.8, Red Blood Count 3.76L, Hemoglobin 10.7L, Hematocrit 34L, Mean Corpuscular Volume 91, Mean Corpuscular Hemoglobin 29, Mean Corpuscular Hemoglobin Concent 31L, Red Cell Distribution Width 19.9H, Platelet Count 146, Mean Platelet Volume 9.8, Neutrophils (%) (Auto) 85H, Lymphocytes (%) (Auto) 7L, Monocytes (%) (Auto) 8, Eosinophils (%) (Auto) 0, Basophils (%) (Auto) 0, Neutrophils # (Auto) 4.0, Lymphocytes # (Auto) 0.4L, Monocytes # (Auto) 0.4, Eosinophils # (Auto) 0.0, Basophils # (Auto) 0.0, Activated Partial Thromboplast Time 125*H, Sodium Level 137, Potassium Level 4.4, Chloride Level 102, Carbon Dioxide Level 19L, Anion Gap 16H, Blood Urea Nitrogen 15, Creatinine 0.64, Estimat Glomerular Filtration Rate > 60, BUN/Creatinine Ratio 23, Glucose Level 146H, Lactic Acid Level 3.35*H, Calcium Level 8.6, Phosphorus Level 3.6, Magnesium Level 2.0 05/15/19 05:25: Lactic Acid Level 3.32*H Assessment/Plan Assessment/Plan Assess & Plan/Chief Complaint Hypotension resolved. Bilateral pulmonary embolisms. Atrial fibrillation. DVT of leg. B-cell lymphoma. Diabetes. Metastatic cancer. Patient doing better Clinical Quality Measures Admission Status Admission Dx Bilateral pulmonary embolism. DVT of left leg. Hypoxia. Lactic acidosis. B-cell lymphoma. 2 recent back surgeries. Atrial fib with RVR. Hypotension. Shock. History of non-STEMI in August 17. Diabetes DVT/VTE Risk/Contraindication: Risk Factor Score Per Nursin RFS Level Per Nursing on Admit: 4+=Very High HEBER MARTINEZ DO May 15, 2019 07:41
[2019-05-15] MEDS: DEXAMETHASONE 4 MG TAB (DECADRON) PO SCH (08:04)
[2019-05-15] MEDS ORDERED: LIDOCAINE 1% INJ 20 ML 20 ML VIAL ONE (10:18)
[2019-05-15] MEDS ORDERED: HEParin (CATH LAB) 2,000 ML IV ONE (10:19)
[2019-05-15] MEDS: HEParin DRIP 25000 UNIT/500ML 500 ML IV SCH (10:20)
[2019-05-15] MEDS: DILTIAZEM IV FOR DRIP 125 MG in NS (IVPB) 100 ML IV SCH ×3 (10:41→23:04)
[2019-05-15] MEDS: HEParin 1000 UNIT/ML (10ML VIAL) FOR BOLUS IV SCH (10:45)
[2019-05-15] MEDS ORDERED: MIDAZOLAM 5 MG/5 ML (VERSED) VIAL ONE (11:05)
[2019-05-15] MEDS ORDERED: fentaNYL INJECTION 100 MCG/2 ML AMP ONE (11:05)
--- NOTE | 2019-05-15 11:23 | NUR ---
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
[2019-05-15] MEDS ORDERED: NS IV 1000 ML 1,000 ML ONE (11:26)
--- NOTE | 2019-05-15 11:28 | Cardiology Progress Note ---
Cardiology SOAP Progress Note Subjective: recurrent chest pain last night and this morning. Objective: I&O/Vital Signs 05/15/19 05/15/19 05/15/19 05/15/19 00:00 00:00 01:00 01:00 Pulse 97 96 87 Resp 14 16 B/P (MAP) 104/86 (92) 113/83 (93) Pulse Ox 99 99 98 O2 Delivery Room Air Room Air Room Air 05/15/19 05/15/19 05/15/19 05/15/19 02:00 03:00 04:00 04:00 Pulse 88 86 87 Resp 16 16 16 B/P (MAP) 114/84 (94) 116/81 (93) 117/77 (90) Pulse Ox 100 100 100 98 O2 Delivery Room Air Room Air Room Air Room Air 05/15/19 05/15/19 05/15/19 05/15/19 05:00 06:00 07:00 07:00 Pulse 88 93 112 109 Resp 25 20 15 B/P (MAP) 121/99 (106) 118/73 (88) 105/69 (81) Pulse Ox 100 100 99 O2 Delivery Room Air Room Air Room Air 05/15/19 05/15/19 05/15/19 05/15/19 07:00 07:15 07:15 07:30 Pulse 109 109 109 113 Resp 15 16 16 26 B/P (MAP) 105/69 (81) 119/77 (91) 115/70 (85) Pulse Ox 99 99 99 99 O2 Delivery Room Air Room Air Room Air Room Air 05/15/19 05/15/19 05/15/19 05/15/19 07:30 07:45 07:45 08:00 Pulse 113 125 125 107 Resp 26 31 31 38 B/P (MAP) 119/77 (91) Pulse Ox 99 100 100 100 O2 Delivery Room Air Room Air Room Air Room Air 05/15/19 05/15/19 05/15/19 05/15/19 08:00 08:00 08:15 08:15 Temp 97.5 Pulse 107 117 117 Resp 38 20 20 B/P (MAP) 98/83 (88) 98/83 (88) Pulse Ox 100 100 100 O2 Delivery Room Air Room Air Room Air 05/15/19 05/15/19 05/15/19 05/15/19 08:18 08:30 08:30 08:45 Pulse 106 106 105 Resp 23 23 38 B/P (MAP) 108/84 (92) 108/84 (92) 107/80 (89) Pulse Ox 98 100 100 100 O2 Delivery Room Air Room Air Room Air Room Air 05/15/19 05/15/19 05/15/19 05/15/19 09:00 09:15 09:30 09:45 Pulse 109 105 105 101 Resp 21 21 30 B/P (MAP) 122/87 (99) 116/78 (91) 130/87 (101) 124/89 (101) Pulse Ox 100 99 100 100 O2 Delivery Room Air Room Air Room Air Room Air 05/15/19 05/15/19 10:00 10:41 Pulse 107 Resp 25 B/P (MAP) 133/89 (104) 129/97 Pulse Ox 100 O2 Delivery Room Air 05/15/19 00:00 Intake Total 3920 ml Output Total 3100 ml Balance 820 ml Weight (Pounds): 204 Weight (Ounces): 8.0 Weight (Calculated Kilograms): 92.791899 Constitutional: AAO x 3 Respiratory: chest is bilaterally symmetric, lungs clear to auscultation Cardiovascular: irregularly irregular, tachycardia, S1 and S2 Gastrointestional: No tender, No soft, No round, No distended, No pulsatile mass, No organomegaly, No guarding, No rebound, No tenderness, No hernia, No mass, No audible bowel sounds, No abnormal bowel sounds, No abdominal bruits, No spleenomegaly, No other Extremities: normal range of motion, non-tender, normal inspection; No clubbing, No cyanosis, No significant edema Neurologic/Psychiatric: no motor/sensory deficits, alert, normal mood/affect, oriented x 3, power is 5/5 both on sides Skin: cool, pallor Results/Procedures: Labs Laboratory Tests 05/14/19 11:45: White Blood Count 4.6, Red Blood Count 3.66L, Hemoglobin 10.2L, Hematocrit 34L, Mean Corpuscular Volume 92, Mean Corpuscular Hemoglobin 28, Mean Corpuscular Hem oglobin Concent 30L, Red Cell Distribution Width 20.0H, Platelet Count 131, Mean Platelet Volume 8.8, Neutrophils (%) (Auto) 89H, Lymphocytes (%) (Auto) 6L, Monocytes (%) (Auto) 5, Eosinophils (%) (Auto) 0, Basophils (%) (Auto) 0, Neutrophils # (Auto) 4.1, Lymphocytes # (Auto) 0.3L, Monocytes # (Auto) 0.2, Eosinophils # (Auto) 0.0, Basophils # (Auto) 0.0, Neutrophils % (Manual) 87, Lymphocytes % (Manual) 9, Monocytes % (Manual) 3, Eosinophils % (Manual) 1, Polychromasia SLIGHT, Hypochromasia SLIGHT, Anisocytosis SLIGHT, Blood Morphology Comment SEE REFERENCE, Prothrombin Time 14.8H, INR Comment 1.1, Activated Partial Thromboplast Time 26, Sodium Level 137, Potassium Level 5.0, Chloride Level 102, Carbon Dioxide Level 23, Anion Gap 12, Blood Urea Nitrogen 18, Creatinine 0.60, Estimat Glomerular Filtration Rate > 60, BUN/Creatinine Ratio 30, Glucose Level 193H, Calcium Level 8.2L, Corrected Calcium 8.8, Total Bilirubin 0.5, Aspartate Amino Transf (AST/SGOT) 17, Alanine Aminotransferase (ALT/SGPT) 15, Alkaline Phosphatase 133, Total Protein 5.5L, Albumin 3.3 05/14/19 15:10: Troponin I 0.113H 05/14/19 16:05: Glucometer 250H 05/14/19 20:00: Activated Partial Thromboplast Time 44H, Troponin I 0.079H 05/14/19 20:20: Glucometer 196H 05/15/19 03:24: White Blood Count 4.8, Red Blood Count 3.76L, Hemoglobin 10.7L, Hematocrit 34L, Mean Corpuscular Volume 91, Mean Corpuscular Hemoglobin 29, Mean Corpuscular Hemoglobin Concent 31L, Red Cell Distribution Width 19.9H, Platelet Count 146, Mean Platelet Volume 9.8, Neutrophils (%) (Auto) 85H, Lymphocytes (%) (Auto) 7L, Monocytes (%) (Auto) 8, Eosinophils (%) (Auto) 0, Basophils (%) (Auto) 0, Neutrophils # (Auto) 4.0, Lymphocytes # (Auto) 0.4L, Monocytes # (Auto) 0.4, Eosinophils # (Auto) 0.0, Basophils # (Auto) 0.0, Activated Partial Thromboplast Time 125*H, Sodium Level 137, Potassium Level 4.4, Chloride Level 102, Carbon Dioxide Level 19L, Anion Gap 16H, Blood Urea Nitrogen 15, Creatinine 0.64, Estimat Glomerular Filtration Rate > 60, BUN/Creatinine Ratio 23, Glucose Level 146H, Lactic Acid Level 3.35*H, Calcium Level 8.6, Phosphorus Level 3.6, Magnesium Level 2.0 05/15/19 05:25: Lactic Acid Level 3.32*H 05/15/19 08:30: Activated Partial Thromboplast Time 57H A/P: Assessment/Dx: extensive bilateral pulmonary embolism with shock, Atrial fibrillation with rapid ventricular rate, chest pain, positive cardiac enzymes, history of TX, PCI, Previous history of ischemic cardiomyopathy, Lactic acidosis, Anemia, Recent back surgery Plan: Atrial fibrillation with rapid ventricular rate: Likely due to severe pulmonary condition. patient will be on metoprolol and Eliquis. I'm avoiding Cardizem due to patient's history of CAD and mildly reduced LV systolic function. Recurrent chest pain with positive cardiac enzymes: Likely due to severe pulmonary embolism however non-STEMI due to plaque rupture or stent thrombosis cannot be ruled out since the patient did have proximal LAD stent in August 2015 and he was off dual antiplatelet therapy for back surgery very recently. I have discussed with the patient and taken an informed consent. All the risks and complication were explained in detail. CAD/PCI in August 2015. History of ischemic cardiomyopathy with LVEF of 35 percent in August 2015. I will recommend an echocardiogram. extensive bilateral pulmonary embolism with refractory shock. status post thrombolytic therapy. No complications associated with thrombolytic therapy. Significant improvement in patient's clinical and hemodynamic status. No further shortness of breath. Oxygen status off oxygen is 100 percent. Systolic blood pressure of 133 mmHg during my examination. Will transition to Eliquis later today. Lactic acidosis, anemia, deferred to the ICU team. Recent back surgery: Back surgery was over 2 weeks ago. Thank you for your consultation. Please call me if you have any questions. Dina Castanon MD, FACP, FACC, FSCAI, FHRS, CCDS Interventional Cardiology Cardiac Electrophysiology Vascular Medicine and Endovascular Interventions Focused Exam Lactate Level 05/14/19 08:48: Lactic Acid Level 4.18*H 05/15/19 03:24: Lactic Acid Level 3.35*H 05/15/19 05:25: Lactic Acid Level 3.32*H Ulises CASTANON MD May 15, 2019 11:28
[2019-05-15] MEDS ORDERED: HEParin 1000 UNIT/ML (10ML VIAL) FOR BOLUS ONE (11:58)
[2019-05-15] MEDS ORDERED: TICAGRELOR 90 MG TABLET (BRILINTA) PO ONE (12:02)
[2019-05-15] MEDS ORDERED: ASPIRIN 81 MG CHEW (CHILDREN'S ASA) ONE (12:26)
[2019-05-15] MEDS ORDERED: PATIENT MAY USE OWN MEDS, ALL PO SCH (12:45)
--- NOTE | 2019-05-15 12:45 | Cardiac Procedure Note-CS/ASA ---
Pre-Procedure Note Pre-Op Procedure Note H&P Reviewed The H&P was reviewed, patient examined and no changes noted. Date H&P Reviewed: May 15, 2019 Time H&P Reviewed: 09:30 Conscious Sedation Pre-Proced Time 09:30 ASA Score 3 For ASA 3 and 4: Consider anesthesia and medical clearance. Also, for patients with a history of failed moderate sedation consider anesthesia. Airway Lungs Heart ASA score ASA 1: a normal healthy patient ASA 2: a patient with a mild systemic disease (mid diabetes, controlled hypertension, obesity ASA 3: a patient with a severe systemic disease that limits activity (angina, COPD, prior Myocardial infarction) ASA 4: a patient with an incapacitating disease that is a constant threat to life (CHF, renal failure) ASA 5: a moribund patient not expected to survive 24 hrs. (ruptured aneurysm) ASA 6: a declared brain- patient whose organs are being harvested. For emergent operations, add the letter E after the classification Mallampati Classification Grade 1 Sedation Plan Analgesia, Amnesia, Plan communicated to team members, Discussed options with patient/fam, Discussed risks with patient/fam The patient is an appropriate candidate to undergo the planned procedure, sedation, and anesthesia. The patient immediately re-assessed prior to indication. Ulises BLOUNT MD May 15, 2019 12:45
--- NOTE | 2019-05-15 12:56 | Coronary Angiography & PCI ---
Coronary Angiography & PCI DATE OF PROCEDURE: 05/15/19 INDICATION: non-STEMI. PREOPERATIVE DIAGNOSIS: non-STEMI. POSTOPERATIVE DIAGNOSIS: non-STEMI, severe mid RCA stenosis treated successfully with a drug-eluting stent. HISTORY: this is a 59-year-old gentleman who has previous history of non-STEMI with a drug-eluting stent to the proximal LAD in August 2015. He presented on 05/14/2019 with syncope, hypoxemia, atrial fibrillation, hypertension and was diagnosed with extensive bilateral pulmonary embolism which was treated with intra-arterial thrombolytics. He did well significantly with improved hemodynamics status as well as oxygenation status. However overnight he had recurrent episodes of chest pain. Initial troponin was negative. Serial troponin were significantly positive. Differential diagnoses included pulmonary embolism associated type II myocardial infarction versus non-STEMI due to plaque rupture. Also patient was off aspirin and Plavix during the recent back surgery. Considering everything as mentioned above I recommended coronary angiography to rule out severe CAD as a contribution factor to non- STEMI.Therefore, the patient was scheduled for coronary angiography. PROCEDURES PERFORMED: 1.Coronary angiography. 2.Left heart catheterization. 3.PCI to the mid RCA with a drug-eluting stent. COMPLICATIONS: None. SPECIMENS: None. ESTIMATED BLOOD LOSS: 10 mL ANESTHESIA: Conscious sedation ANTICOAGULATION: IV heparin CONTRAST: 108 mL. FLUOROSCOPY: 10.5 minutes. FLOUROSCOPY DOSE: 1414 mgy. PROCEDURE DETAILS: The patient is a 59 male and was brought to the director of laboratory operations after informed consent was taken. All the risks and complications were explained in detail; this included the risk of bleeding, vascular damage, stroke, OH and even . The patient was draped and prepped in the usual sterile fashion. Access was gained in the right femoral artery with a 5 Greenlandic sheath. Coronary angiography and left heart catheterization was performed with a JR4 and JL4 catheter. FINDINGS: 1.Left main: patent. 2.LAD: mild to moderate mid LAD disease. Mild in-stent restenosis of a previously placed proximal LAD stent. Severe proximal disease of a small diagonal artery. 3.Left circumflex artery: mild diffuse disease with no focal severe stenosis. 4.RCA: mild to moderate proximal disease. Stenosis severity 30-40 percent. Severe stenosis in the midsegment. Stenosis severity 80 percent. 5.Left heart catheterization: LV pressure 144/13 mmHg. LVEDP 23 mmHg. Aortic pressure 141/95 mmHg. No gradient across the aortic valve. Preserved LV systolic function with no significant wall motion abnormalities. RECOMMENDATIONS: PCI to the mid RCA is recommended. INTERVENTION DETAILS: upgraded to a 6 Greenlandic sheath. 6 Greenlandic JR4 guide catheter, whisper extra- support and BMW guidewire, IV heparin for anticoagulation. ACT was done twice. The first ACT was 152. The second ACT was 207 seconds. Further 2000 units of IV heparin was given. Patient was given bolus of Brilinta 180 mg once as well as aspirin 81 mg once. the lesion was crossed with the whisper extra-support wire. The tip of the wire was placed in the proximal PDA. We went in with a Xience Natali 3 x 28 mm drug-eluting stent but were not able to cross the lesion. we then took a BMW wire and also placed it in the PDA. We then tried to advance the stent again with the help of a jesus wire but were still not able to cross the lesion. We then took a emerge 2.5 x 20 mm balloon. And did 2 inflations at 12 dinesh for 21 and 28 seconds respectively. The balloon was taken out and we went in again with a drug-eluting stent. This time around we were able to cross the lesion with a drug-eluting stent and which was placed at 18 dinesh for 42 seconds. We then took an NC Quantum 3.5 x 20 mm balloon and did postdilatation of the distal aspect at 16 dinesh for 20 seconds, mid segment at 18 dinesh for 43 seconds and proximal segment at 18 dinesh for 27 seconds. BUSHRA-3 flow and no residual stenosis. Patient tolerated procedure well and did not have any complications. Minx closure of the right femoral artery. CONCLUSIONS: 1. successful PCI to the mid RCA with drug-eluting stent. 2. Low-dose aspirin, fci Brilinta. 3. Eliquis will be started later today. Dina Castanon MD, FACP, FACC, [facility] Interventional Cardiology Ulises CASTANON MD May 15, 2019 12:56
--- NOTE | 2019-05-15 13:10 | NUR ---
pt back to 7 via bed w/ cardiac cath lab radiology technologist staff.
--- NOTE | 2019-05-15 13:50 | NUR ---
DR BLOUNT CONTACTED ABOUT RIGHT GROIN HEMATOMA. NEW ORDERS RECEIVED TO RESTART HEPARIN DRIP AT 1814.
[2019-05-15] MEDS: TICAGRELOR 90 MG TABLET (BRILINTA) PO SCH (20:30)
[2019-05-15] MEDS: ATORVASTATIN 10 MG (LIPITOR) TABLET PO SCH (20:30)
[2019-05-16] VITALS (17 sets, daily range): BP systolic 103–136; BP diastolic 73–93
[2019-05-16 00:43] LABS: HEMOGLOBIN 10.2 G/DL (13.3-17.7); MEAN PLATELET VOLUME 8.8 FL (7.4-10.4); RED CELL DISTRIBUTION WIDTH 19.8 % (10.0-14.5); WHITE BLOOD COUNT 5.1 10^3/uL (4.3-11.0)
[2019-05-16 01:02] LABS: BUN/CREATININE RATIO 23; CALCIUM 8.2 MG/DL (8.5-10.1); CARBON DIOXIDE 22 MMOL/L (21-32); CHLORIDE 101 MMOL/L (98-107); GFR ESTIMATED > 60; GLUCOSE 143 MG/DL (70-105); MAGNESIUM 1.6 MG/DL (1.6-2.4); PHOSPHORUS 3.1 MG/DL (2.3-4.7); POTASSIUM 4.1 MMOL/L (3.6-5.0); SODIUM 135 MMOL/L (135-145)
[2019-05-16] MEDS: NS IV 1000 ML 1,000 ML IV SCH ×2 (03:14→08:52)
[2019-05-16] MEDS ORDERED: MAGNESIUM 1 GM/100 ML IVPB 100 ML IV ONE (03:45)
--- NOTE | 2019-05-16 05:41 | Pulmonary Progress Note ---
Subjective Time Seen by a Provider: 07:22 Subjective/Events-last exam S/p cardiac cath. No current CP. Sepsis Event Evaluation Height, Weight, BMI Height: 6'1.00" Weight: 204lbs. 8.0oz. 92.565154hu; 34.3 BMI Method:Stated Focused Exam Lactate Level 05/14/19 08:48: Lactic Acid Level 4.18*H 05/15/19 03:24: Lactic Acid Level 3.35*H 05/15/19 05:25: Lactic Acid Level 3.32*H Exam Exam Vital Signs Date Time Temp Pulse Resp B/P (MAP) Pulse Ox O2 Delivery O2 Flow Rate FiO2 05/16/19 05:00 85 18 124/78 (93) 97 Room Air 05/16/19 04:00 101 20 126/93 (104) 97 Room Air 05/16/19 03:00 93 16 119/90 (100) 96 Room Air 05/16/19 02:00 102 21 127/76 (93) 98 Room Air 05/16/19 01:00 98 16 118/80 (93) 97 Room Air 05/16/19 01:00 91 05/16/19 00:22 98 Room Air 05/16/19 00:00 91 17 123/80 (94) 97 Room Air 05/15/19 23:04 124/88 05/15/19 23:00 92 19 124/88 (100) 97 Room Air 05/15/19 22:00 97 17 111/85 (94) 96 Room Air 05/15/19 20:10 98 Room Air 05/15/19 20:00 97.6 05/15/19 20:00 98 19 106/63 (77) 96 Room Air 05/15/19 19:00 115 16 111/85 (94) 97 Room Air 05/15/19 19:00 115 05/15/19 18:45 128 15 106/67 (80) 98 Room Air 05/15/19 18:30 128 29 103/61 (75) 99 Room Air 05/15/19 18:15 116 10 108/86 (93) 98 Room Air 05/15/19 18:00 108 21 125/62 (83) 96 Room Air 05/15/19 17:45 108 117/92 (100) 98 Room Air 05/15/19 17:30 96 152/143 (146) 97 Room Air 05/15/19 17:15 107 136/94 (108) 98 Room Air 05/15/19 17:00 106 33 113/81 (92) 98 Room Air 05/15/19 16:45 116 42 129/98 (108) 97 Room Air 05/15/19 16:30 124 38 127/84 (98) 97 Room Air 05/15/19 16:15 125 38 127/106 (113) 94 Room Air 05/15/19 16:00 124 21 110/89 (96) 98 Room Air 05/15/19 16:00 97.5 05/15/19 15:52 98 Room Air 05/15/19 15:45 110 56 118/99 (105) 97 Room Air 05/15/19 15:30 135 24 128/85 (99) 100 Room Air 05/15/19 15:15 115 51 130/90 (103) 100 Room Air 05/15/19 15:00 117 39 106/73 (84) 100 Room Air 05/15/19 14:45 117 27 107/82 (90) 100 Room Air 05/15/19 14:30 117 126/88 (101) 100 Room Air 05/15/19 14:15 117 39 122/74 (90) 100 Room Air 05/15/19 14:00 111 112/79 (90) 99 Room Air 05/15/19 13:45 99 106/72 (83) 100 Room Air 05/15/19 13:30 107 98/81 (87) 100 Room Air 05/15/19 13:15 110 18 113/90 (98) 96 Room Air 05/15/19 11:15 98 Room Air 05/15/19 11:15 113 19 125/95 (105) 99 Room Air 05/15/19 11:00 116 130/96 (107) 98 Room Air 05/15/19 10:41 129/97 05/15/19 10:00 107 25 133/89 (104) 100 Room Air 05/15/19 09:45 101 30 124/89 (101) 100 Room Air 05/15/19 09:30 105 130/87 (101) 100 Room Air 05/15/19 09:15 105 21 116/78 (91) 99 Room Air 05/15/19 09:00 109 21 122/87 (99) 100 Room Air 05/15/19 08:45 105 38 107/80 (89) 100 Room Air 05/15/19 08:30 106 23 108/84 (92) 100 Room Air 05/15/19 08:30 106 23 108/84 (92) 100 Room Air 05/15/19 08:18 98 Room Air 05/15/19 08:15 117 20 98/83 (88) 100 Room Air 05/15/19 08:15 117 20 98/83 (88) 100 Room Air 05/15/19 08:00 97.5 05/15/19 08:00 107 38 100 Room Air 05/15/19 08:00 107 38 100 Room Air 05/15/19 07:45 125 31 100 Room Air 05/15/19 07:45 125 31 100 Room Air 05/15/19 07:30 113 26 119/77 (91) 99 Room Air 05/15/19 07:30 113 26 99 Room Air 05/15/19 07:15 109 16 115/70 (85) 99 Room Air 05/15/19 07:15 109 16 119/77 (91) 99 Room Air 05/15/19 07:00 109 15 105/69 (81) 99 Room Air 05/15/19 07:00 109 05/15/19 07:00 112 15 105/69 (81) 99 Room Air 05/15/19 06:00 93 20 118/73 (88) 100 Room Air I & O 05/16/19 06:59 Intake Total 2990 ml Output Total 4100 ml Balance -1110 ml Height & Weight Height: 6'1.00" Weight: 204lbs. 8.0oz. 92.060800qy; 34.3 BMI Method:Stated General Appearance: No Apparent Distress, WD/WN HEENT: Normal ENT Inspection Neck: Full Range of Motion, Normal Inspection Respiratory: Lungs Clear, No Accessory Muscle Use, No Respiratory Distress Cardiovascular: Irregularly Irregular Capillary Refill: Greater Than 3 Seconds Gastrointestinal: non tender, soft Extremity: Normal Range of Motion, Non Tender, Pedal Edema (left greater than right) Neurologic/Psychiatric: Alert, Oriented x3 Results Lab Laboratory Tests 05/14/19 06:45 05/14/19 11:45 05/15/19 03:24 05/16/19 00:35 Assessment/Plan Assessment/Plan Acute respiratory distress-- much improved s/p TPA -Continue oxygen Acute Bilateral PE with hypotension and hypoxia s/p intravascular TPA -Pt will probably need life long anticoagulation secondary to cancer. -If ok with cardiology change Hep to Eliquis PO LLE DVT CAD s/p cath with stenting of RCA 05/15 Metabolic lactic acidosis -IVF -Monitor Afib RVR -Pt is still on Cardizem gtt -Switch to PO today if ok with cardiology. LIAM EASTMAN DO May 16, 2019 05:41
[2019-05-16] MEDS ORDERED: MAGNESIUM 1 GM/100 ML IVPB 100 ML IV SCH (06:00)
[2019-05-16] MEDS ORDERED: KCL 20 MEQ TAB (K-DUR) PO SCH (06:00)
[2019-05-16] MEDS ORDERED: POTASSIUM CL 10MEQ/50ML IVPB 50 ML IV SCH (06:00)
[2019-05-16] MEDS: MAGNESIUM 1 GM/100 ML IVPB 100 ML IV SCH (06:34)
[2019-05-16] MEDS: POTASSIUM CL 10MEQ/50ML IVPB 50 ML IV SCH (06:34)
[2019-05-16] MEDS: KCL 20 MEQ TAB (K-DUR) PO SCH (06:35)
[2019-05-16] MEDS: PANTOPRAZOLE 40 MG (PROTONIX) TAB PO SCH (06:36)
[2019-05-16] MEDS: MULTIVIT W/MINERALS TAB (THERAGRAN M) PO SCH (06:36)
[2019-05-16] MEDS: inSUlin ASPART (NovoLOG) 1 UNIT/0.01 ML (CHARGE PER UNIT) SC SCH ×4 (06:49→21:48)
[2019-05-16] MEDS: DILTIAZEM IV FOR DRIP 125 MG in NS (IVPB) 100 ML IV SCH (07:14)
--- NOTE | 2019-05-16 07:43 | Diagnostic Imaging Report ---
INDICATION: Dyspnea. COMPARISON: 05/15/2019. DISCUSSION: Single portable upright view of the chest was obtained. Improved aeration of the lung bases with no significant residual opacity. No new consolidation, pleural fluid, or pneumothorax. Normal heart size. Elevated right hemidiaphragm is stable. Chronic posttraumatic deformity of the left clavicle is stable. IMPRESSION: 1. Improved aeration of the lungs. No adverse interval change. Dictated by: Dictated on workstation # [id number]
[2019-05-16] MEDS: ASPIRIN E.C. 81 MG (ECOTRIN) TAB PO SCH (08:12)
[2019-05-16] MEDS: TICAGRELOR 90 MG TABLET (BRILINTA) PO SCH ×2 (08:12→20:47)
[2019-05-16] MEDS: DEXAMETHASONE 4 MG TAB (DECADRON) PO SCH (08:12)
--- NOTE | 2019-05-16 08:28 | Cardiology Progress Note ---
Subjective Date Seen by Provider: May 16, 2019 Time Seen by Provider: 08:23 Subjective/Events-last exam Patient is laying down in bed, feeling better, had bleeding from his groin yesterday, currently controlled, no significant hematoma was noted. Review of Systems General: No Chills, No Night Sweats, No Fatigue, No Malaise, No Appetite, No Other HEENT: No Head Aches, No Visual Changes, No Eye Pain, No Ear Pain, No Dysphasia, No Sinus Congestion, No Post Nasal Drip, No Sore Throat, No Other Pulmonary: No Dyspnea, No Cough, No Pleuritic Chest Pain, No Other Cardiovascular: No: Chest Pain, Palpitations, Orthopnea, Paroxysmal Noc. Dyspnea, Edema, Lt Headedness, Other Focused Exam Lactate Level 05/14/19 08:48: Lactic Acid Level 4.18*H 05/15/19 03:24: Lactic Acid Level 3.35*H 05/15/19 05:25: Lactic Acid Level 3.32*H Objective-Cardiology Exam Last Set of Vital Signs Vital Signs 05/14/19 05/16/19 05/16/19 05/16/19 21:30 04:20 06:00 07:14 Temp 97.8 Pulse 100 Resp 15 B/P (MAP) 115/86 Pulse Ox 97 O2 Delivery Room Air O2 Flow Rate 3.00 Capillary Refill : Greater Than 3 Seconds I&O Intake and Output 05/16/19 00:00 Intake Total 4170 ml Output Total 4700 ml Balance -530 ml Intake Oral 2045 ml IV Total 2125 ml Output Urine Total 4700 ml General: Alert, Oriented X3, Cooperative HEENT: Atraumatic, PERRLA Neck: Supple, No JVD, No Thyromegaly Lungs: Clear to Auscultation, Normal Air Movement Heart: Regular Rate, Normal S1, Normal S2, No Murmurs Abdomen: Normal Bowel Sounds, Soft, No Tenderness, No Hepatosplenomegaly, No Masses Extremities: No Clubbing, No Cyanosis, No Edema, Normal Pulses, No Tenderness/Swelling Skin: No Rashes, No Breakdown, No Significant Lesion Neuro: Normal Gait, Normal Speech, Strength at 5/5 X4 Ext, Normal Tone, Sensation Intact Psych/Mental Status: Mental Status NL, Mood NL Results Lab Laboratory Tests 05/16/19 00:35 A/P-Cardiology Admission Diagnosis Non-ST elevation myocardial infarction Bilateral pulmonary embolism Chronic atrial fibrillation Hypotensive shock Assessment/Plan Non-ST elevation myocardial infarction, status post angioplasty and stent to the right coronary artery done by Dr. Castanon on May 15, 2019, had history of stent to the proximal LAD in August 2015 Bilateral pulmonary embolism, refractory shock, status post thrombolytic t herapy, had right heart catheterization and TNKase injection in the right and left main pulmonary artery. Persistent atrial fibrillation with rapid ventricular response, maintained on Cardizem drip, heart rate better controlled. I will switch to Cardizem to oral and monitor tolerance and response. B cell non-Hodgkin lymphoma, patient is scheduled for chemotherapy for next week History of ischemic cardiomyopathy, chronic compensated left ventricular systolic dysfunction, ejection fraction 40-45 percent, I will start low-dose beta blockers and evaluate tolerance and response, will consider adding HELEN inhibitor if patient can tolerate it Recent back surgery was done about 2 weeks ago Minor right groin bleed, controlled, Aggressive anticoagulation, there is a high risk of bleeding with the combination of aspirin, Brilinta and Heparin Clinical Quality Measures DVT/VTE Risk/Contraindication: Risk Factor Score Per Nursin RFS Level Per Nursing on Admit: 4+=Very High HARDEEP HALL MD May 16, 2019 08:28
--- NOTE | 2019-05-16 08:30 | Progress Note - Hospitalist ---
Subjective HPI/CC On Admission Date Seen by Provider: May 16, 2019 Time Seen by Provider: 08:22 Subjective/Events-last exam Pt reports feeling well. Denies any chest pain, shortness of breath, palpitations. Reports soreness around groin from cath site improving. No other complaints. Focused Exam Lactate Level 05/14/19 08:48: Lactic Acid Level 4.18*H 05/15/19 03:24: Lactic Acid Level 3.35*H 05/15/19 05:25: Lactic Acid Level 3.32*H Objective Exam Vital Signs Vital Signs Date Time Temp Pulse Resp B/P (MAP) Pulse Ox O2 Delivery O2 Flow Rate FiO2 05/16/19 09:00 97 16 109/93 (98) 98 Room Air 05/16/19 08:00 97.6 05/14/19 21:30 3.00 Capillary Refill : Greater Than 3 Seconds General Appearance: No Apparent Distress, WD/WN Respiratory: Lungs Clear, No Respiratory Distress Cardiovascular: No Murmur, Irregularly Irregular Gastrointestinal: Normal Bowel Sounds, Soft Extremity: No Calf Tenderness, No Pedal Edema Neurologic/Psychiatric: Alert, Oriented x3, Normal Mood/Affect Results/Procedures Lab Laboratory Tests 05/16/19 00:35 Patient resulted labs reviewed. Assessment/Plan Assessment and Plan Assess & Plan/Chief Complaint Massive Bilateral Pulmonary Emboli with right heart strain DVT left popliteal vein and peroneal vein s/p interarterial TPA Currently on heparin gtt Can transition to oral Eliquis when okay with cardiology Atrial fibrillation currently on cardizem gtt Cardiology consulted, appreciate recs Plan to transition to oral cardizem 360mg CAD CARLY to RCA 05/15/2019 Currently on Brilinta, ASA, and heparin gtt On statin B cell lymphoma Has appt with [facility] on 05/19 for chemo therapy NIDDMII Start SSI Hold metformin given recent contrast use Normocytic anemia Trend, no evidence of bleeding Diagnosis/Problems Diagnosis/Problems (1) Bilateral pulmonary embolism Status: Acute (2) Normocytic anemia Status: Chronic (3) Non-insulin dependent type 2 diabetes mellitus Status: Chronic (4) DVT (deep venous thrombosis) Status: Acute Qualifiers: DVT location: lower extremity Affected thrombotic vein of extremity: popliteal Chronicity: acute Laterality: left Qualified Codes: I82.432 - Acute embolism and thrombosis of left popliteal vein (5) B-cell lymphoma Qualifiers: B-cell lymphoma type: unspecified B-cell Lymphoma site: multiple regions Qualified Codes: C85.18 - Unspecified B-cell lymphoma, lymph nodes of multiple sites (6) CAD (coronary artery disease), [place] coronary artery Status: Acute Qualifiers: [place] vs. transplanted heart: [place] heart Associated angina: angina presence unspecified Qualified Codes: I25.10 - Atherosclerotic heart disease of [place] coronary artery without angina pectoris (7) Atrial fibrillation with rapid ventricular response Status: Acute (8) Hypotension Status: Resolved Qualifiers: Hypotension type: other hypotension type Qualified Codes: I95.89 - Other hypotension Resolution Date/Time: 05/16/19 @ 11:50 (9) Lactic acidosis Status: Resolved Resolution Date/Time: 05/16/19 @ 11:50 Clinical Quality Measures DVT/VTE Risk/Contraindication: Risk Factor Score Per Nursin RFS Level Per Nursing on Admit: 4+=Very High MARIA ANTONIA WOODWARD MD May 16, 2019 08:30
[2019-05-16] MEDS: meTOprolol TARTRATE 25 MG (LOPRESSOR) TABLET PO SCH ×2 (08:52→20:48)
[2019-05-16] MEDS: DILTIAZEM 30 MG (CARDIZEM) TAB PO SCH ×2 (11:15→17:27)
[2019-05-16] MEDS ORDERED: ACETAMINOPHEN 500 MG TAB (TYLENOL) PO PRN (11:15)
[2019-05-16] MEDS ORDERED: MILK OF MAGNESIA 400 MG/5 ML 30 ML UDC PO PRN (11:15)
[2019-05-16] MEDS ORDERED: BENZONATATE 100 MG (TESSALON) CAPSULE PO PRN (11:15)
[2019-05-16] MEDS ORDERED: MELATONIN 3 MG TABLET PO PRN (11:15)
[2019-05-16] MEDS ORDERED: ONDANSETRON 4 MG/2 ML (SDV) Z0FRAN IV PRN (11:15)
[2019-05-16] MEDS ORDERED: ANTACID SUSP 30 ML UDC (MYLANTA) PO PRN (11:15)
[2019-05-16] MEDS ORDERED: fentaNYL PATCH 25 MCG (DURAGESIC) TD SCH (14:00)
[2019-05-16] MEDS: HEParin DRIP 25000 UNIT/500ML 500 ML IV SCH (16:13)
--- NOTE | 2019-05-16 17:45 | NUR ---
Pt transferred from ICU to room 422 via wheelchair. Pt is A & O x 4, on RA and telemetry is intact. R) groin catherization site is soft but deep purple bruising present. Pt had TPA on 05/15 and IV sites are seeping slightly. Heparin infusing at 18.2ml/hr into L) wrist. Pt had back surgery on 04/26/19, dressing was changed in ICU today. Pt has follow up appt at [facility] on Saturday for back surgery and is to start chemo on Saturday for metastatic cancer. Addendum: 05/16/19 at 1838 by JAMEE BROCK RN heparin drip at 35ml/hr
--- NOTE | 2019-05-16 17:58 | NUR ---
1740 PT TO ROOM 422 VIA W/C ACCOMPANIED BY FAMILY AND THIS RN. REPORT GIVEN TO ADAN BALDWIN. ALL PERSONAL BELONGINGS SENT WITH PT.
[2019-05-16] MEDS: GABAPENTIN 400 MG (NEURONTIN) CAP PO SCH (20:47)
[2019-05-16] MEDS: ATORVASTATIN 10 MG (LIPITOR) TABLET PO SCH (20:47)
[2019-05-17] VITALS (7 sets, daily range): BP systolic 104–133; BP diastolic 70–88
[2019-05-17] MEDS: DILTIAZEM 30 MG (CARDIZEM) TAB PO SCH ×2 (00:09→07:25)
[2019-05-17 06:21] LABS: ALANINE AMINOTRANSFERASE 13 U/L (0-55); ALBUMIN 3.2 GM/DL (3.2-4.5); ALKALINE PHOSPHATASE 106 U/L (40-136); BILIRUBIN,TOTAL 0.5 MG/DL (0.1-1.0); BUN/CREATININE RATIO 29; CALCIUM 8.2 MG/DL (8.5-10.1); CARBON DIOXIDE 23 MMOL/L (21-32); CHLORIDE 101 MMOL/L (98-107); CREATININE SERUM 0.63 MG/DL (0.60-1.30); GFR ESTIMATED > 60; GLUCOSE 183 MG/DL (70-105); POTASSIUM 4.5 MMOL/L (3.6-5.0); SODIUM 136 MMOL/L (135-145); TOTAL PROTEIN 5.1 GM/DL (6.4-8.2)
[2019-05-17] MEDS: inSUlin ASPART (NovoLOG) 1 UNIT/0.01 ML (CHARGE PER UNIT) SC SCH ×4 (06:25→21:00)
[2019-05-17] MEDS: PANTOPRAZOLE 40 MG (PROTONIX) TAB PO SCH (06:42)
[2019-05-17] MEDS: MULTIVIT W/MINERALS TAB (THERAGRAN M) PO SCH (06:42)
--- NOTE | 2019-05-17 07:21 | NUR ---
PT'S BP AT 0600 107/74, P 90. DR HALL CONTACTED AND HE ORDERED TO GO AHEAD AND ADMIN [facility].
--- NOTE | 2019-05-17 07:57 | Pulmonary Progress Note ---
Sepsis Event Evaluation Height, Weight, BMI Height: 6'1.00" Weight: 200lbs. 0.0oz. 90.675035sd; 34.3 BMI Method:Stated Focused Exam Lactate Level 05/14/19 08:48: Lactic Acid Level 4.18*H 05/15/19 03:24: Lactic Acid Level 3.35*H 05/15/19 05:25: Lactic Acid Level 3.32*H Exam Exam Vital Signs Date Time Temp Pulse Resp B/P (MAP) Pulse Ox O2 Delivery O2 Flow Rate FiO2 05/17/19 07:00 94 05/17/19 04:00 97.8 94 14 107/79 (88) 98 Room Air 05/17/19 02:10 98 Room Air 05/17/19 01:00 95 05/17/19 00:00 89 133/88 (103) 05/16/19 19:48 97.7 66 20 133/81 (98) 98 Room Air 05/16/19 19:00 103 05/16/19 17:55 97.6 101 20 122/85 (97) 99 Room Air 05/16/19 16:00 97.7 113 18 110/83 (92) 96 Room Air 05/16/19 13:00 16 110/82 (91) 98 Room Air 05/16/19 13:00 97 05/16/19 12:35 98 Room Air 05/16/19 12:15 80 15 115/90 (98) 98 Room Air 05/16/19 11:00 75 14 105/73 (84) 97 Room Air 05/16/19 10:00 82 13 103/88 (93) 96 Room Air 05/16/19 09:00 97 16 109/93 (98) 98 Room Air 05/16/19 08:40 98 Room Air 05/16/19 08:00 97.6 05/16/19 08:00 12 132/78 (96) 98 Room Air I & O 05/17/19 07:00 Intake Total 3154 ml Output Total 2600 ml Balance 554 ml Height & Weight Height: 6'1.00" Weight: 200lbs. 0.0oz. 90.888766xj; 34.3 BMI Method:Stated General Appearance: No Apparent Distress, WD/WN HEENT: Normal ENT Inspection Neck: Full Range of Motion, Normal Inspection Respiratory: Lungs Clear, No Respiratory Distress Cardiovascular: No Murmur, Irregularly Irregular Capillary Refill: Greater Than 3 Seconds Gastrointestinal: non tender, soft Extremity: No Calf Tenderness, No Pedal Edema Neurologic/Psychiatric: Alert, Oriented x3, Normal Mood/Affect Results Lab Laboratory Tests 05/16/19 00:35 05/17/19 05:20 Assessment/Plan Assessment/Plan Acute respiratory distress-- much improved s/p TPA -Continue oxygen Acute Bilateral PE with hypotension and hypoxia s/p intravascular TPA -Pt will probably need life long anticoagulation secondary to cancer. -If ok with cardiology change Hep to Eliquis PO LLE DVT CAD s/p cath with stenting of RCA 05/15 Afib RVR -now controlled LIAM EASTMAN DO May 17, 2019 07:57
[2019-05-17] MEDS: GABAPENTIN 400 MG (NEURONTIN) CAP PO SCH ×2 (08:11→21:01)
[2019-05-17] MEDS: ASPIRIN E.C. 81 MG (ECOTRIN) TAB PO SCH (08:11)
[2019-05-17] MEDS: TICAGRELOR 90 MG TABLET (BRILINTA) PO SCH ×2 (08:12→21:01)
[2019-05-17] MEDS: DEXAMETHASONE 4 MG TAB (DECADRON) PO SCH (08:12)
[2019-05-17] MEDS: meTOprolol TARTRATE 25 MG (LOPRESSOR) TABLET PO SCH ×2 (08:12→21:01)
--- NOTE | 2019-05-17 08:15 | NUR ---
OXYIR 10 PO FOR BACK PAIN.
--- NOTE | 2019-05-17 10:01 | NUR ---
DR. HALL HERE AND NOTIFIED OF DR. TRENT ORDER TO STOP HEPARIN AND CHANGE TO ELIQUIS IF HE AGREES.
--- NOTE | 2019-05-17 11:45 | Progress Note - Hospitalist ---
Subjective HPI/CC On Admission Date Seen by Provider: May 17, 2019 Time Seen by Provider: 11:41 Subjective/Events-last exam Pt reports feeling well. No chest pain. No SOB. Only concerns are about discharge hopefully tomorrow so he can go to his appt for chemo at [facility]. Focused Exam Lactate Level 05/15/19 03:24: Lactic Acid Level 3.35*H 05/15/19 05:25: Lactic Acid Level 3.32*H Objective Exam Vital Signs Vital Signs Date Time Temp Pulse Resp B/P (MAP) Pulse Ox O2 Delivery O2 Flow Rate FiO2 05/17/19 08:00 97.6 93 20 104/70 (81) 99 Room Air 05/14/19 21:30 3.00 Capillary Refill : Less Than 3 SecondsGreater Than 3 Seconds General Appearance: No Apparent Distress, WD/WN Respiratory: Lungs Clear, No Accessory Muscle Use, No Respiratory Distress Cardiovascular: Regular Rate, Rhythm, No Murmur Neurologic/Psychiatric: Alert, Oriented x3, Normal Mood/Affect Results/Procedures Lab Laboratory Tests 05/17/19 05:20 Patient resulted labs reviewed. Assessment/Plan Assessment and Plan Assess & Plan/Chief Complaint Massive Bilateral Pulmonary Emboli with right heart strain DVT left popliteal vein and peroneal vein s/p interarterial TPA Currently on heparin gtt- defer transition to eliquis to cardiology given stent placed on 05/15 Atrial fibrillation Rate controlled on oral meds Cardiology consulted, appreciate recs Continue oral cardizem 360mg CAD CARLY to RCA 05/15/2019 Currently on Brilinta, ASA, and heparin gtt Plan to switch to Eliquis when cardiology approves from heparin gtt On statin B cell lymphoma Has appt with [facility] on 05/19 for chemo therapy NIDDMII SSI Hold metformin given recent contrast use Normocytic anemia Trend, no evidence of bleeding Diagnosis/Problems Diagnosis/Problems (1) Bilateral pulmonary embolism Status: Acute (2) Normocytic anemia Status: Chronic (3) Non-insulin dependent type 2 diabetes mellitus Status: Chronic (4) DVT (deep venous thrombosis) Status: Acute Qualifiers: DVT location: lower extremity Affected thrombotic vein of extremity: popliteal Chronicity: acute Laterality: left Qualified Codes: I82.432 - Acute embolism and thrombosis of left popliteal vein (5) B-cell lymphoma Qualifiers: B-cell lymphoma type: unspecified B-cell Lymphoma site: multiple regions Qualified Codes: C85.18 - Unspecified B-cell lymphoma, lymph nodes of multiple sites (6) CAD (coronary artery disease), [place] coronary artery Status: Acute Qualifiers: [place] vs. transplanted heart: [place] heart Associated angina: angina presence unspecified Qualified Codes: I25.10 - Atherosclerotic heart disease of [place] coronary artery without angina pectoris (7) Atrial fibrillation with rapid ventricular response Status: Acute (8) Hypotension Status: Resolved Qualifiers: Hypotension type: other hypotension type Qualified Codes: I95.89 - Other hypotension Resolution Date/Time: 05/16/19 @ 11:50 am (9) Lactic acidosis Status: Resolved Resolution Date/Time: 05/16/19 @ 11:50 am Clinical Quality Measures DVT/VTE Risk/Contraindication: Risk Factor Score Per Nursin RFS Level Per Nursing on Admit: 4+=Very High MARIA ANTONIA WOODWARD MD May 17, 2019 11:45 am
--- NOTE | 2019-05-17 12:43 | Cardiology Progress Note ---
Subjective Date Seen by Provider: May 17, 2019 Time Seen by Provider: 12:38 Subjective/Events-last exam patient is laying down in bed, feeling well. Denied any chest pain. No active bleeding. No shortness of breath. Review of Systems General: No Chills, No Night Sweats, No Fatigue, No Malaise, No Appetite, No Other HEENT: No Head Aches, No Visual Changes, No Eye Pain, No Ear Pain, No Dysphasia, No Sinus Congestion, No Post Nasal Drip, No Sore Throat, No Other Pulmonary: No Dyspnea, No Cough, No Pleuritic Chest Pain, No Other Cardiovascular: No: Chest Pain, Palpitations, Orthopnea, Paroxysmal Noc. Dyspnea, Edema, Lt Headedness, Other Focused Exam Lactate Level 05/15/19 03:24: Lactic Acid Level 3.35*H 05/15/19 05:25: Lactic Acid Level 3.32*H Objective-Cardiology Exam Last Set of Vital Signs Vital Signs 05/14/19 05/17/19 21:30 12:00 Temp 97.8 Pulse 90 Resp 20 B/P (MAP) 111/75 (87) Pulse Ox 100 O2 Delivery Room Air O2 Flow Rate 3.00 Capillary Refill : Less Than 3 SecondsGreater Than 3 Seconds I&O Intake and Output 05/17/19 00:00 Intake Total 3484 ml Output Total 2400 ml Balance 1084 ml Intake Oral 1584 ml IV Total 1900 ml Output Urine Total 2400 ml General: Alert, Oriented X3, Cooperative HEENT: Atraumatic, PERRLA Neck: Supple, No JVD, No Thyromegaly Lungs: Clear to Auscultation, Normal Air Movement Heart: Regular Rate, Normal S1, Normal S2, No Murmurs Abdomen: Normal Bowel Sounds, Soft, No Tenderness, No Hepatosplenomegaly, No Masses Extremities: No Clubbing, No Cyanosis, No Edema, Normal Pulses, No Tenderness/Swelling Skin: No Rashes, No Breakdown, No Significant Lesion Neuro: Normal Gait, Normal Speech, Strength at 5/5 X4 Ext, Normal Tone, Sensation Intact Psych/Mental Status: Mental Status NL, Mood NL Results Lab Laboratory Tests 05/17/19 05:20 A/P-Cardiology Admission Diagnosis Non-ST elevation myocardial infarction Bilateral pulmonary embolism Chronic atrial fibrillation Hypotensive shock Assessment/Plan Non-ST elevation myocardial infarction, status post angioplasty and stent to the right coronary artery done by Dr. Castanon on May 15, 2019, had history of stent to the proximal LAD in August 2015, continue on dual antiplatelet therapy Bilateral pulmonary embolism, refractory shock, status post thrombolytic therapy, had right heart catheterization and TNKase injection in the right and left main pulmonary artery, switching to Eliquis today. Persistent atrial fibrillation, heart rate is better controlled, starting Cardizem CD 180 mg daily and stopping short acting Cardizem, continue on Lopressor 12.5 mg twice daily and monitor tolerance and response. B cell non-Hodgkin lymphoma, patient is scheduled for chemotherapy for next week History of ischemic cardiomyopathy, chronic compensated left ventricular systolic dysfunction, ejection fraction 40-45 percent, I will start low-dose beta blockers and evaluate tolerance and response, will consider adding HELEN inhibitor if patient can tolerate it Recent back surgery was done about 2 weeks ago Minor right groin bleed, controlled, Aggressive anticoagulation, there is a high risk of bleeding with the combination of aspirin, Brilinta and Heparin Clinical Quality Measures DVT/VTE Risk/Contraindication: Risk Factor Score Per Nursin RFS Level Per Nursing on Admit: 4+=Very High HARDEEP HALL MD May 17, 2019 12:43
[2019-05-17] MEDS: APIXABAN 5 MG (ELIQUIS) TABLET PO SCH ×2 (12:54→21:01)
[2019-05-17] MEDS: DILTIAZEM 180 MG (CARDIZEM CD) CAP PO SCH (12:54)
[2019-05-17] MEDS: ATORVASTATIN 10 MG (LIPITOR) TABLET PO SCH (21:00)
[2019-05-18 03:10] VITALS: BP 121/84
[2019-05-18] MEDS: PANTOPRAZOLE 40 MG (PROTONIX) TAB PO SCH (06:04)
[2019-05-18] MEDS: inSUlin ASPART (NovoLOG) 1 UNIT/0.01 ML (CHARGE PER UNIT) SC SCH ×2 (06:04→10:50)
[2019-05-18] MEDS: MULTIVIT W/MINERALS TAB (THERAGRAN M) PO SCH (06:05)
[2019-05-18 06:15] LABS: HEMOGLOBIN 11.8 G/DL (13.3-17.7); MEAN PLATELET VOLUME 9.8 FL (7.4-10.4); RED CELL DISTRIBUTION WIDTH 20.4 % (10.0-14.5); WHITE BLOOD COUNT 17.4 10^3/uL (4.3-11.0)
[2019-05-18 06:33] LABS: ALANINE AMINOTRANSFERASE 18 U/L (0-55); ALBUMIN 3.9 GM/DL (3.2-4.5); ALKALINE PHOSPHATASE 150 U/L (40-136); BILIRUBIN,TOTAL 0.6 MG/DL (0.1-1.0); BUN/CREATININE RATIO 23; CALCIUM 8.4 MG/DL (8.5-10.1); CARBON DIOXIDE 20 MMOL/L (21-32); CHLORIDE 99 MMOL/L (98-107); CREATININE SERUM 0.69 MG/DL (0.60-1.30); GFR ESTIMATED > 60; GLUCOSE 177 MG/DL (70-105); SODIUM 134 MMOL/L (135-145); TOTAL PROTEIN 6.6 GM/DL (6.4-8.2)
--- NOTE | 2019-05-18 06:55 | Pulmonary Progress Note ---
Sepsis Event Evaluation Height, Weight, BMI Height: 6'1.00" Weight: 195lbs. 5.0oz. 88.688084wg; 34.3 BMI Method:Stated Exam Exam Vital Signs Date Time Temp Pulse Resp B/P (MAP) Pulse Ox O2 Delivery O2 Flow Rate FiO2 05/18/19 03:10 97.5 102 18 121/84 (96) 97 Room Air 05/18/19 01:00 100 05/17/19 23:50 97.5 98 20 120/81 (94) 99 Room Air 05/17/19 21:00 96 Room Air 05/17/19 20:00 97.0 100 20 104/78 (87) 96 Room Air 05/17/19 19:00 101 05/17/19 16:00 97.5 95 20 109/78 (88) 98 Room Air 05/17/19 13:00 85 05/17/19 12:00 97.8 90 20 111/75 (87) 100 Room Air 05/17/19 08:00 97.6 93 20 104/70 (81) 99 Room Air 05/17/19 08:00 Room Air 05/17/19 07:00 94 I & O 05/18/19 07:00 Intake Total 2150 ml Output Total 2050 ml Balance 100 ml Height & Weight Height: 6'1.00" Weight: 195lbs. 5.0oz. 88.677583im; 34.3 BMI Method:Stated General Appearance: No Apparent Distress, WD/WN HEENT: Normal ENT Inspection Neck: Full Range of Motion, Normal Inspection Respiratory: Lungs Clear, No Accessory Muscle Use, No Respiratory Distress Cardiovascular: Regular Rate, Rhythm, No Murmur Capillary Refill: Greater Than 3 Seconds Gastrointestinal: non tender, soft Extremity: No Calf Tenderness, No Pedal Edema Neurologic/Psychiatric: Alert, Oriented x3, Normal Mood/Affect Results Lab Laboratory Tests 05/17/19 05:20 05/18/19 05:34 Assessment/Plan Assessment/Plan Acute respiratory distress-- much improved s/p TPA -Continue oxygen Acute Bilateral PE with hypotension and hypoxia s/p intravascular TPA -Pt will probably need life long anticoagulation secondary to cancer. - Eliquis LLE DVT CAD s/p cath with stenting of RCA 05/15 Afib RVR -now controlled LIAM EASTMAN DO May 18, 2019 06:55
[2019-05-18 08:40] VITALS: BP 127/81
[2019-05-18] MEDS: ASPIRIN E.C. 81 MG (ECOTRIN) TAB PO SCH (08:52)
[2019-05-18] MEDS: DILTIAZEM 180 MG (CARDIZEM CD) CAP PO SCH (08:52)
[2019-05-18] MEDS: TICAGRELOR 90 MG TABLET (BRILINTA) PO SCH (08:52)
[2019-05-18] MEDS: GABAPENTIN 400 MG (NEURONTIN) CAP PO SCH (08:52)
[2019-05-18] MEDS: APIXABAN 5 MG (ELIQUIS) TABLET PO SCH (08:52)
[2019-05-18] MEDS: meTOprolol TARTRATE 25 MG (LOPRESSOR) TABLET PO SCH (08:52)
[2019-05-18] MEDS: DEXAMETHASONE 4 MG TAB (DECADRON) PO SCH (08:52)
--- NOTE | 2019-05-18 08:54 | NUR ---
/prior to a.m. medications pulse was 101 b/p was 127/81.
--- NOTE | 2019-05-18 11:22 | Cardiology Progress Note ---
Subjective Date Seen by Provider: May 18, 2019 Time Seen by Provider: 11:21 Subjective/Events-last exam patient is laying down in bed, asking to go home, feeling well. No new complaint Review of Systems General: No Chills, No Night Sweats, No Fatigue, No Malaise, No Appetite, No Other HEENT: No Head Aches, No Visual Changes, No Eye Pain, No Ear Pain, No Dysphasia, No Sinus Congestion, No Post Nasal Drip, No Sore Throat, No Other Pulmonary: No Dyspnea, No Cough, No Pleuritic Chest Pain, No Other Cardiovascular: No: Chest Pain, Palpitations, Orthopnea, Paroxysmal Noc. Dyspnea, Edema, Lt Headedness, Other Objective-Cardiology Exam Last Set of Vital Signs Vital Signs 05/18/19 05/18/19 08:40 09:00 Temp 99.0 Pulse 107 Resp 18 B/P (MAP) 127/81 (96) Pulse Ox 99 O2 Delivery Room Air O2 Flow Rate 3.00 Capillary Refill : Less Than 3 SecondsGreater Than 3 Seconds I&O Intake and Output 05/18/19 00:00 Intake Total 2050 ml Output Total 3050 ml Balance -1000 ml Intake Oral 1550 ml IV Total 500 ml Output Urine Total 3050 ml General: Alert, Oriented X3, Cooperative HEENT: Atraumatic, PERRLA Neck: Supple, No JVD, No Thyromegaly Lungs: Clear to Auscultation, Normal Air Movement Heart: Regular Rate, Normal S1, Normal S2, No Murmurs Abdomen: Normal Bowel Sounds, Soft, No Tenderness, No Hepatosplenomegaly, No Masses Extremities: No Clubbing, No Cyanosis, No Edema, Normal Pulses, No Tenderness/Swelling Skin: No Rashes, No Breakdown, No Significant Lesion Neuro: Normal Gait, Normal Speech, Strength at 5/5 X4 Ext, Normal Tone, Sensation Intact Psych/Mental Status: Mental Status NL, Mood NL Results Lab Laboratory Tests 05/18/19 05:34 A/P-Cardiology Admission Diagnosis Non-ST elevation myocardial infarction Bilateral pulmonary embolism Chronic atrial fibrillation Hypotensive shock Assessment/Plan Non-ST elevation myocardial infarction, status post angioplasty and stent to the right coronary artery done by Dr. Castanon on May 15, 2019, had history of stent to the proximal LAD in August 2015, I've changed Brilinta to Plavix and will continue on aspirin and Eliquis for now Bilateral pulmonary embolism, refractory shock, status post thrombolytic therapy, had right heart catheterization and TNKase injection in the right and left main pulmonary artery, continue on Eliquis Persistent atrial fibrillation, heart rate is better controlled, starting Cardizem CD 180 mg daily and stopping short acting Cardizem, continue on Lopressor 12.5 mg twice daily and monitor tolerance and response. B cell non-Hodgkin lymphoma, patient is scheduled for chemotherapy for next week History of ischemic cardiomyopathy, chronic compensated left ventricular systolic dysfunction, ejection fraction 40-45 percent, I will start low-dose beta blockers and evaluate tolerance and response, will consider adding HELEN inhibitor if patient can tolerate it Recent back surgery was done about 2 weeks ago Minor right groin bleed, controlled, Aggressive anticoagulation, there is a high risk of bleeding with the combination of aspirin, Plavix and Eliquis. Continue to monitor next Leukocytosis, could be reactive, managed by primary care physician. Okay for discharge from cardiology standpoint and follow up with Dr. Castanon as an outpatient Clinical Quality Measures DVT/VTE Risk/Contraindication: Risk Factor Score Per Nursin RFS Level Per Nursing on Admit: 4+=Very High HARDEEP HALL MD May 18, 2019 11:22
[2019-05-18] MEDS ORDERED: CLOPIDOGREL 75 MG (PLAVIX) TABLET PO ONE (11:30)
[2019-05-18] MEDS ORDERED: METO-333 PO (11:35)
[2019-05-18] MEDS ORDERED: DILT180C90 PO (11:35)
[2019-05-18] MEDS ORDERED: ASPI-983 PO (11:35)
[2019-05-18] MEDS ORDERED: APIX5TAB PO (11:35)
[2019-05-18] MEDS ORDERED: CLOP75TA28 PO (11:35)
[2019-05-18 12:41] VITALS: BP 127/81
--- NOTE | 2019-05-18 13:41 | Discharge Summary ---
Diagnosis/Chief Complaint Date of Admission May 14, 2019 at 09:30 Date of Discharge May 18, 2019 at 12:45 Discharge Date: May 18, 2019 Discharge Time: 11:00 Admission Diagnosis Bilateral pulmonary embolism Primary Care Bertin Cole DO Discharge Diagnosis Bilateral pulmonary embolism (1) Bilateral pulmonary embolism Status: Acute (2) Normocytic anemia Status: Chronic (3) Non-insulin dependent type 2 diabetes mellitus Status: Chronic (4) DVT (deep venous thrombosis) Status: Acute (5) B-cell lymphoma (6) CAD (coronary artery disease), [place] coronary artery Status: Acute (7) Atrial fibrillation with rapid ventricular response Status: Acute (8) Hypotension Status: Resolved (9) Lactic acidosis Status: Resolved Discharge Summary Discharge Physical Exam Allergies: Coded Allergies: No Known Drug Allergies (Unverified , 07/25/15) Vitals & I&Os Vital Signs Date Time Temp Pulse Resp B/P (MAP) Pulse Ox O2 Delivery O2 Flow Rate FiO2 05/18/19 12:41 107 18 127/81 99 Room Air 05/18/19 09:00 3.00 05/18/19 08:40 99.0 General Appearance: No Apparent Distress, WD/WN HEENT: PERRL/EOMI, Pharynx Normal Respiratory: Lungs Clear, Normal Breath Sounds, No Respiratory Distress Cardiovascular: Regular Rate, Rhythm, No Edema, No Murmur Gastrointestinal: Normal Bowel Sounds, Non Tender, Soft Extremity: Non Tender, No Pedal Edema Skin: Normal Color, Warm/Dry Neurologic/Psychiatric: Alert, Oriented x3 Hospital Course Yanick Tse is a 59-year-old male with past medical history of hypertension, coronary artery disease, recently diagnosed B-cell lymphoma, who presented with syncope and shortness of breath and was admitted with bilateral pulmonary embolism. He was started on a heparin drip. Cardiology was consulted and he underwent catheterization with directed thrombolysis. His left heart catheterization revealed stenosis of the right coronary artery and angioplasty and stent placement was performed. He was started on the aspirin, Plavix, and was transitioned to Eliquis. He also had issues with atrial fibrillation with rapid ventricular response and was started on metoprolol and Cardizem. On discharge, he had a worsening leukocytosis, but no infectious source could be identified. This was thought to possibly be due to dexamethasone. He has a close follow-up scheduled tomorrow with his oncologist in [place]. He'll follow up with cardiology and pulmonology in about 2 weeks. Labs (last 24 hrs) Laboratory Tests 05/17/19 16:52: Glucometer 221H 05/17/19 20:36: Glucometer 274H 05/18/19 05:34: White Blood Count 17.4H, Red Blood Count 4.01L, Hemoglobin 11.8L, Hematocrit 36L , Mean Corpuscular Volume 91, Mean Corpuscular Hemoglobin 29, Mean Corpuscular Hemoglobin Concent 33, Red Cell Distribution Width 20.4H, Platelet Count 234, Mean Platelet Volume 9.8, Sodium Level 134L, Potassium Level 4.0, Chloride Level 99, Carbon Dioxide Level 20L, Anion Gap 15H, Blood Urea Nitrogen 16, Creatinine 0.69, Estimat Glomerular Filtration Rate > 60, BUN/Creatinine Ratio 23, Glucose Level 177H, Calcium Level 8.4L, Corrected Calcium 8.5, Total Bilirubin 0.6, Aspartate Amino Transf (AST/SGOT) 19, Alanine Aminotransferase (ALT/SGPT) 18, Alkaline Phosphatase 150H, Total Protein 6.6, Albumin 3.9 05/18/19 05:55: Glucometer 197H 05/18/19 10:33: Glucometer 220H Microbiology 05/14/19 Blood Culture - Preliminary, Resulted No growth 05/14/19 MRSA Screen - Final, Complete MRSA not isolated 05/14/19 Urine Culture - Final, Complete NO GROWTH Patient resulted labs reviewed. Pending Labs Laboratory Tests 05/18/19 05:55: Glucometer 197 05/18/19 10:33: Glucometer 220 Discussion & Recommendations Discharge Planning: <30 minutes discharge planning Discharge Home Medications: Active Scripts Active Diltiazem 24Hr Cd (Diltiazem HCl) 180 Mg Cap.er.24h 180 Mg PO DAILY 90 Days Metoprolol Tartrate 25 Mg Tablet 12.5 Mg PO BID 90 Days Aspirin EC (Aspirin) 81 Mg Tablet.dr 81 Mg PO DAILY 90 Days Clopidogrel (Clopidogrel Bisulfate) 75 Mg Tablet 75 Mg PO DAILY 90 Days Eliquis (Apixaban) 5 Mg Tablet 5 Mg PO BID 90 Days Reported Tylenol Extra Strength (Acetaminophen) 500 Mg Tablet 500-1,000 Mg PO Q4H PRN Multivitamins (Multivitamin) 1 Each Tablet 1 Tab PO DAILY Pantoprazole Sodium 40 Mg Tablet.dr 40 Mg PO DAILY Zolpidem Tartrate 10 Mg Tablet 10 Mg PO HS Gabapentin 400 Mg Capsule 400 Mg PO BID Ondansetron HCl 4 Mg Tablet 4 Mg PO TID PRN Atorvastatin Calcium 10 Mg Tablet 10 Mg PO HS Dexamethasone 4 Mg Tablet 20 Mg PO DAILY TAKES 5 (4MG) TABLETS Allopurinol 300 Mg Tablet 300 Mg PO DAILY Fentanyl Patch 25 MCG (Fentanyl) 1 Each Patch.td72 25 Mcg TD Q72H Metformin HCl ER (Metformin HCl) 500 Mg Tab.er.24h 500 Mg PO BID Cyclobenzaprine HCl 10 Mg Tablet 10 Mg PO TID PRN Oxycodone HCl 10 Mg Tablet 10 Mg PO QID PRN Condition at discharge Stable Instructions to patient/family Please see electronic discharge instructions given to patient. Clinical Quality Measures DVT/VTE Risk/Contraindication: Risk Factor Score Per Nursin RFS Level Per Nursing on Admit: 4+=Very High Problem Qualifiers (1) DVT (deep venous thrombosis): DVT location: lower extremity Affected thrombotic vein of extremity: popliteal Chronicity: acute Laterality: left Qualified Codes: I82.432 - Acute embolism and thrombosis of left popliteal vein (2) B-cell lymphoma: B-cell lymphoma type: unspecified B-cell Lymphoma site: multiple regions Qualified Codes: C85.18 - Unspecified B-cell lymphoma, lymph nodes of multiple sites (3) CAD (coronary artery disease), [place] coronary artery: [place] vs. transplanted heart: [place] heart Associated angina: angina presence unspecified Qualified Codes: I25.10 - Atherosclerotic heart disease of [place] coronary artery without angina pectoris (4) Hypotension: Hypotension type: other hypotension type Qualified Codes: I95.89 - Other hypotension SHELTON HOU MD May 18, 2019 13:41
[2019-05-19] MEDS ORDERED: CLOPIDOGREL 75 MG (PLAVIX) TABLET PO SCH (09:00)
[2019-05-19] MEDS ORDERED: PATCH REMOVAL TP SCH (14:00)
== END 2019-05-18 12:45 | disposition home or self-care (01) | DRG 981 ==
LOC: EDUNIT# 06:37 → ER 06:38 → ICU 08:59 → CATH 08:59 → ICU 09:29 → UNDOADMIN 09:30 → ICU 10:36 → CATH 10:36 → ICU 14:55 → 4TH 05-16 17:42 → ICU 05-16 17:42 → UNDODISIN 05-18 12:45
PROVIDERS: ADMIT Family Medicine; ATTEND Family Medicine
PROC: 3E06317 Introduction of Other Thrombolytic into Central Artery, Percutaneous Approach (ICD-10-PCS; principal; 2019-05-14)
PROC: 4A023N6 Measurement of Cardiac Sampling and Pressure, Right Heart, Percutaneous Approach (ICD-10-PCS; 2019-05-14)
PROC: B2141ZZ Fluoroscopy of Right Heart using Low Osmolar Contrast (ICD-10-PCS; 2019-05-14)
PROC: B31S1ZZ Fluoroscopy of Right Pulmonary Artery using Low Osmolar Contrast (ICD-10-PCS; 2019-05-14)
PROC: B31T1ZZ Fluoroscopy of Left Pulmonary Artery using Low Osmolar Contrast (ICD-10-PCS; 2019-05-14)
PROC: 027034Z Dilation of Coronary Artery, One Artery with Drug-eluting Intraluminal Device, Percutaneous Approach (ICD-10-PCS; 2019-05-15)
PROC: 4A023N7 Measurement of Cardiac Sampling and Pressure, Left Heart, Percutaneous Approach (ICD-10-PCS; 2019-05-15)
PROC: B2111ZZ Fluoroscopy of Multiple Coronary Arteries using Low Osmolar Contrast (ICD-10-PCS; 2019-05-15)
PROC: B2151ZZ Fluoroscopy of Left Heart using Low Osmolar Contrast (ICD-10-PCS; 2019-05-15)
DX: I26.99 Other pulmonary embolism without acute cor pulmonale (principal); R57.8 Other shock; I21.4 Non-ST elevation (NSTEMI) myocardial infarction; I82.432 Acute embolism and thrombosis of left popliteal vein; I82.492 Acute embolism and thrombosis of other specified deep vein of left lower extremity; I48.91 Unspecified atrial fibrillation; I48.92 Unspecified atrial flutter; E87.2 Acidosis; R09.02 Hypoxemia; T82.855A Stenosis of coronary artery stent, initial encounter; C85.18 Unspecified B-cell lymphoma, lymph nodes of multiple sites; I10 Essential (primary) hypertension; I25.5 Ischemic cardiomyopathy; I25.10 Atherosclerotic heart disease of native coronary artery without angina pectoris; R06.03 Acute respiratory distress; D64.9 Anemia, unspecified; M19.90 Unspecified osteoarthritis, unspecified site; I25.2 Old myocardial infarction; Z87.891 Personal history of nicotine dependence
CPT/HCPCS: 36415; 36600; 37211; 51702; 70450; 71045; 71275; 72125; 80048; 80053; 81000; 82805; 82962; 83036; 83605; 83735; 84100; 84484; 85007; 85025; 85027; 85049; 85347; 85610; 85730; 87040; 87081; 87088; 93005; 93306; 93451; 93458; 93566; 93970; 96361; 96365; 96366

== ENCOUNTER 2019-06-25 05:34 | Outpatient (CLI) | payer OTHER ==
[~2019-06-25] VITALS: Ht 185.5 cm; Wt 90.9 kg
[~2019-06-25 05:34] MED LIST changes: +ACET-2267 PO; +ALLO300T2 PO; +APIX5TAB PO; +ATOR10TA66 PO; +CYCL10TA9 PO; +DEXA4TAB PO; +DILT180C90 PO; +FENT1PAT8 TD; +GABA-488; +GABA-490 PO; +METF500T8 PO; +METO-333 PO; +MULT1TAB69 PO; +ONDA4TAB10 PO; +OXYC10TA7 PO; +PANT40TA3 PO; +TRAM50TA2; +ZOLP10TA5 PO
[2019-06-25] MEDS ORDERED: OXYC-529 PO (10:32)
[2019-06-25] MEDS ORDERED: TRAM50TA2 PO (10:32)
[2019-06-25] MEDS ORDERED: METO-370 PO (10:32)
== END 2019-06-25 10:42 | disposition home or self-care (01) ==
LOC: PREOP 05:34
PROVIDERS: ATTEND Surgery
DX: Z01.818 Encounter for other preprocedural examination (principal)

== ENCOUNTER 2019-06-26 06:59 | Day surgery (SDC) | payer OTHER ==
[2019-06-26] VITALS (8 sets, daily range): BP systolic 100–137; BP diastolic 71–89
[~2019-06-26] VITALS: Ht 185 cm; Wt 90.9 kg
[~2019-06-26 06:59] MED LIST changes: +METO-370 PO; +OXYC-529 PO; +TRAM50TA2 PO
[2019-06-26] MEDS ORDERED: LACTATED RINGERS 1,000 ML IV PRN (07:47)
[2019-06-26] MEDS ORDERED: ceFAZolin 2 GM IV Premixed 50 ML IV ONE (08:00)
[2019-06-26] MEDS ORDERED: CATHETER FLUSH 10 ML SYR IV PRN (08:00)
[2019-06-26] MEDS ORDERED: HEParin (CENTRAL IV FLUSH) 500 UNIT/5 ML SYR ONE (08:41)
[2019-06-26] MEDS ORDERED: KETAMINE/NaCl 50 MG/5 ML SYRINGE ONE (08:41)
[2019-06-26] MEDS ORDERED: MIDAZOLAM 2 MG/2 ML (VERSED) VIAL ONE (08:41)
[2019-06-26] MEDS ORDERED: LIDOCAINE PF 2% 5 ML (XYLOCAINE) VIAL ONE (08:41)
[2019-06-26] MEDS ORDERED: 0.9% SODIUM CHLORIDE PF INJ 20 ML VIAL ONE (08:41)
[2019-06-26] MEDS ORDERED: proPOfol 200 MG/20 ML (DIPRIVAN) VIAL IV ONE (08:41)
[2019-06-26] MEDS ORDERED: BUP/EPI 0.5% 1:200,000 (SENSORCAINE) 30 ML VIAL ONE (08:42)
--- NOTE | 2019-06-26 09:24 | Progress Note-Pre Operative ---
Pre-Operative Progress Note H&P Reviewed The H&P was reviewed, patient examined and no changes noted. Time Seen by Provider: 09:18 Date H&P Reviewed: Jun 26, 2019 Time H&P Reviewed: 09:19 Pre-Operative Diagnosis: Lymphoma, Venous insufficiency SAM LUKE DO Jun 26, 2019 09:24
--- NOTE | 2019-06-26 10:14 | Progress Note-Post Operative ---
Post-Operative Progess Note Surgeon (s)/Ventilating Equipment Installer (s) Surgeon SAM LUKE DO Ventilating Equipment Installer: LETY Rivera Pre-Operative Diagnosis Lymphoma, Venous insufficiency Post-Operative Diagnosis same Procedure & Operative Findings Date of Procedure 06/26/19 Procedure Performed/Findings glen-cath insertion Anesthesia Type IV sedation by anesthesia Estimated Blood Loss Estimated blood loss (mL): scant Specimens/Packing Specimens Removed none SAM LUKE DO Jun 26, 2019 10:14
--- NOTE | 2019-06-26 10:16 | Discharge Inst-Surgical ---
Discharge Inst-Surgical Reconcile Patient Problems Problems Reviewed?: Yes Depart Medication/Instructions New, Converted or Re-Newed RX: Other (no rx needed) Patient Instructions Follow up Appt: Make appointment for 1 week. [phone] Instructions: No strenuous activity. May shower in 24 hours, no tub bath or soaking. Use incentive spirometer at home as directed. No Smoking Skin/Wound Care: May remove bandages in am. You need to leave the Dermabond on incision it will fall off on it's own. Symptoms to Report: Appetite Changes, Extremity Discoloration, Numbness/Tingling, Swelling Increased, Bleeding Excessive, Eyesight Changes, Pain Increased, Urine Color Change, Constipation(Persistent), Fever over 101 degree F, Pain/Pressure in chest, Urinating Difficulty, Cough Up/Vomit Blood, Heart Beat Irreg/Pounding, Pain/Pressure in jaw, Cramps in feet or legs, Lightheadedness, Pain/Pressure in shoulder, Diarrhea(Persistent), Memory Changes Suddenly, Questions/Concerns, Weight gain consecutive days, Dizziness/Fainting, Nausea/Vomiting, Shortness of Breath, Weight gain over 2 pounds If questions or concerns contact your physician Or seek help at emergency department. Activity Activity as Tolerated: Yes Activity Instructions: Avoid Stress to Incision Driving Instructions: You May Drive Diet Discharge Diet: No Restrictions If Any Problems/Questions/Issu: Contact Your Physician, Go to Emergency Room Skin/Wound Care Infection Signs and Symptoms: Increased Redness, Foul Odor of Wound, Increased Drainage, Skin Itchy or Has a Rash, Increased Swelling, Temperature Above 101 F Bathing Instructions: Shower Stitches/[place]/Dermabond Dis: SAM Velazco DO Jun 26, 2019 10:16
--- NOTE | 2019-06-26 10:30 | Diagnostic Imaging Report ---
INDICATION: Fluoroscopy for GROSHONG catheter placement. Fluoroscopy was provided in the OR during GROSHONG catheter placement. 7 seconds of fluoroscopic time was utilized. A right-sided GROSHONG catheter has been placed. IMPRESSION: Fluoroscopy for GROSHONG catheter placement. Dictated by: Dictated on workstation # [id number]
--- NOTE | 2019-06-26 17:37 | OPERATIVE REPORT ---
DATE OF SERVICE: 06/26/2019 PREOPERATIVE DIAGNOSES: 1. Lymphoma. 2. Venous insufficiency. POSTOPERATIVE DIAGNOSES: 1. Lymphoma. 2. Venous insufficiency. PROCEDURE: Insertion of Port-A-Cath, right subclavian vein. SURGEON: Ramiro Vega DO AMF MECHANIC: Brigitte Wallis MS3 SPECIMENS: None. BLOOD LOSS: Scant. FLUIDS: Per anesthesia. POSTOPERATIVE CONDITION: Stable. INDICATION FOR PROCEDURE: The patient is a 59-year-old male who unfortunately recently diagnosed with lymphoma, has been having trouble with the PICC line, needs a Port-A-Cath placed for long-term IV access. FINDINGS: The patient had a Port-A-Cath placed right anterior chest wall, right subclavian vein with fluoroscopy guidance. PROCEDURE NOTE: After informed consent was obtained, the patient was brought to the operating room, placed on the operating table in supine position, sterilely prepped and draped in normal fashion. Local lidocaine was used to infiltrate the right anterior chest wall towards the clavicle as well as a pocket on the right anterior chest wall. The patient placed slightly Trendelenburg and then advanced the 18-gauge fine needle with negative inspiration, cannulated the subclavian vein on a first attempt. Good flash of blood, removed the syringe and placed a guidewire using the Seldinger technique, it went in easily checked with fluoroscopy, it was in good position and then made a stab incision along the guidewire and removed the needle, made a stab incision along the guidewire with a #11 blade and then made an incision in the right anterior chest wall with the #11 blade, carried down through the skin into subcutaneous tissue, then deepened down to subcutaneous tissue with Bovie electrocautery down to the fascia of the pectoralis muscle and then created a pocket bluntly. Then, over the guidewire placed a dilator using Seldinger technique, it went in easily, checked fluoroscopy, it was in good position. I tunneled the catheter from the stab incision into the pocket and then placed the catheter down, removed the inner portion of the dilator as well as the guidewire and then placed the catheter down the dilator sheath using the Seldinger technique and checked with fluoroscopy. The dilator was in the right spot. Removed the dilator and then checked again and the catheter was in the correct spot. Removed the inner wire from the catheter and then attached the catheter to the port and then attached the locking mechanism, then accessed the port with Burnett needle and aspirated, got a good flash of blood and then flushed with saline and aspirated and then flushed with heparin. This was then sutured in place with 3-0 Prolene placed in the pocket and closed the subcutaneous tissue with 3-0 Vicryl 2 interrupted sutures, then closed the skin with 4-0 undyed Monocryl 3 interrupted subcuticular stitches. Area was cleaned and dried and Dermabond placed over this incision as well as the stab incision, Tegaderm placed. The patient tolerated the procedure. Sponge, instrument and needle count correct at the end of the case. Job ID: [id number] DocumentID: [id number] Dictated Date: 06/26/2019 10:13:25 Inspector Firearms Date: 06/26/2019 17:36:54 Dictated By: RAMIRO VEGA DO
== END 2019-06-26 11:25 | disposition home or self-care (01) ==
LOC: SDC 06:59
PROVIDERS: ATTEND Surgery
DX: C85.90 Non-Hodgkin lymphoma, unspecified, unspecified site (principal); I87.2 Venous insufficiency (chronic) (peripheral); I25.10 Atherosclerotic heart disease of native coronary artery without angina pectoris; I11.9 Hypertensive heart disease without heart failure; I48.91 Unspecified atrial fibrillation; I73.9 Peripheral vascular disease, unspecified; I43 Cardiomyopathy in diseases classified elsewhere; B18.2 Chronic viral hepatitis C; E78.5 Hyperlipidemia, unspecified; Z11.9 Encounter for screening for infectious and parasitic diseases, unspecified; Z95.1 Presence of aortocoronary bypass graft; Z87.891 Personal history of nicotine dependence; Z79.84 Long term (current) use of oral hypoglycemic drugs; Z79.891 Long term (current) use of opiate analgesic; Z79.01 Long term (current) use of anticoagulants; Z79.02 Long term (current) use of antithrombotics/antiplatelets; Z79.899 Other long term (current) drug therapy; Z80.9 Family history of malignant neoplasm, unspecified; Z82.49 Family history of ischemic heart disease and other diseases of the circulatory system
CPT/HCPCS: 82962; 87081

== ENCOUNTER 2019-07-01 05:30 | Emergency (ER) | payer OTHER ==
[~2019-07-01] VITALS: Ht 185 cm; Wt 90.9 kg
--- NOTE | 2019-07-01 06:10 | ED Fall/Injury ---
General Chief Complaint: Trauma-Non Activation Stated Complaint: FALL, HEAD LAC Source: patient Exam Limitations: no limitations (CHAYO MCLEAN MD) History of Present Illness Date Seen by Provider: Jul 01, 2019 Time Seen by Provider: 05:54 Initial Comments Here with complaint of laceration to the left forehead after a fall at 5 AM. He was getting out of bed to go to the bathroom and lost his balance and hit his head on the dresser. Denies loss of consciousness or other injury. He is on both Plavix and Eliquis. 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 Last chemotherapy was yesterday. Unsure of last tetanus shot. Occurred: this morning Severity: mild Injuries/Pain Location: head Context: lost balance Loss of Consciousness: no loss of consciousness Modifying Factors: Worse With Immobilization, Worse With Movement Associated Symptoms (Fall): No Chest Pain; Headache; No Lightheadedness, No Neck Pain, No Shortness of Air (CHAYO MCLEAN MD) Allergies and Home Medications Allergies Coded Allergies: No Known Drug Allergies (Unverified , 07/25/15) Home Medications Acetaminophen 500 Mg Tablet, 500-1,000 MG PO Q4H PRN for PAIN-MILD, (Reported) Allopurinol 300 Mg Tablet, 300 MG PO DAILY, (Reported) Apixaban 5 Mg Tablet, 5 MG PO BID Prescribed by: SHELTON HOU on 05/18/191134 Aspirin 81 Mg Tablet.dr, 81 MG PO DAILY Prescribed by: SHELTON HOU on 05/18/19 113 Atorvastatin Calcium 10 Mg Tablet, 10 MG PO HS, (Reported) Clopidogrel Bisulfate 75 Mg Tablet, 75 MG PO DAILY Prescribed by: SHELTON HOU on 05/18/191134 Cyclobenzaprine HCl 10 Mg Tablet, 10 MG PO TID PRN for MUSCLE SPASMS, (Reported) Dexamethasone 4 Mg Tablet, 20 MG PO DAILY, (Reported) TAKES 5 (4MG) TABLETS Diltiazem HCl 180 Mg Cap.er.24h, 180 MG PO DAILY Prescribed by: SHELTON HOU on 05/18/191134 Fentanyl 1 Each Patch.td72, 25 MCG TD Q72H, (Reported) Gabapentin 400 Mg Capsule, 400 MG PO BID, (Reported) Metformin HCl 500 Mg Tab.er.24h, 500 MG PO BID, (Reported) Metoprolol Succinate 50 Mg Tab.er.24h, 50 MG PO TID, (Reported) Multivitamin 1 Each Tablet, 1 TAB PO DAILY, (Reported) Ondansetron HCl 4 Mg Tablet, 4 MG PO TID PRN for NAUSEA/VOMITING-1ST LINE, (Reported) Oxycodone HCl 5 Mg Tablet, 5-10 MG PO Q3HR PRN for PAIN-MODERATE, (Reported) take 1-2 5mg tabs Pantoprazole Sodium 40 Mg Tablet.dr, 40 MG PO DAILY, (Reported) Tramadol HCl 50 Mg Tablet, 50 MG PO Q6H PRN for PAIN-MILD, (Reported) Zolpidem Tartrate 10 Mg Tablet, 10 MG PO HS, (Reported) Patient Home Medication List Home Medication List Reviewed: Yes (CHAYO MCLEAN MD) Review of Systems Review of Systems Constitutional: see HPI; No chills, No fever Eyes: No Symptoms Reported Ears, Nose, Mouth, Throat: no symptoms reported Respiratory: No cough, No short of breath Cardiovascular: no symptoms reported Gastrointestinal: No abdominal pain, No nausea, No vomiting Genitourinary: no symptoms reported Musculoskeletal: no symptoms reported Skin: see HPI, change in color, lesions Psychiatric/Neurological: See HPI, Headache, Weakness (CHAYO MCLEAN MD) All Other Systems Reviewed Negative Unless Noted: Yes (CHAYO MCLEAN MD) Past Wukrivo-Knjxlx-Nvtoiy Hx Past Med/Social Hx: Reviewed Nursing Past Med/Soc Hx (CHAYO MCLEAN MD) Patient Social History Alcohol Use: Denies Use Recreational Drug Use: No Smoking Status: Former Smoker Former Smoker, Quit: Jul 17, 2015 2nd Hand Smoke Exposure: No Recent Foreign Travel: No Contact w/Someone Who Travel: No Recent Hopitalizations: Yes (back sx 04/26/19) (CHAYO MCLEAN MD) Immunizations Up To Date Tetanus Booster (TDap): Unknown Date of Influenza Vaccine: Jun 27, 2018 (CHAYO MCLEAN MD) Seasonal Allergies Seasonal Allergies: Yes (CHAYO MCLEAN MD) Past Medical History Surgeries: Yes (back sx) Coronary Stent, Orthopedic Respiratory: No Cardiac: Yes High Cholesterol, Hypertension, Irregular Heartbeat Neurological: Yes Neuropathy Reproductive Disorders: No Genitourinary: No Gastrointestinal: Yes Hepatitis Musculoskeletal: Yes Arthritis, Chronic Back Pain Endocrine: Yes Diabetes, Non-Insulin dep HEENT: No Cancer: Yes Lymphoma Psychosocial: No Integumentary: No Blood Disorders: No (CHAYO MCLEAN MD) Family Medical History Reviewed Nursing Family Hx (CHAYO MCLEAN MD) CAD Under 55 Years Old, Hypertension (CHAYO MCLEAN MD) Physical Exam Vital Signs Vital Signs - First Documented 07/01/19 07/01/19 05:43 08:39 Temp 35.0 Pulse 87 Resp 18 B/P (MAP) 140/96 (111) Pulse Ox 100 O2 Delivery Room Air (JAS MENDEZ MD) Vital Signs Capillary Refill : (CHAYO MCLEAN MD) Height, Weight, BMI Height: 6'1.00" Weight: 195lbs. 5.0oz. 88.378768zc; 26.55 BMI Method:Stated General Appearance: WD/WN, no apparent distress HEENT: PERRL/EOMI, pharynx normal Neck: full range of motion, supple Cardiovascular: regular rate, rhythm, no murmur Respiratory: lungs clear, normal breath sounds Gastrointestinal: non tender, soft Back: normal inspection, no CVA tenderness, no vertebral tenderness Extremities: non-tender, normal inspection Neurologic/Psychiatric: alert, oriented x 3 Skin: warm/dry, other (5 cm laceration left forehead) (CHAYO MCLEAN MD) Maryan Coma Score Best Eye Response: (4) Open Spontaneously Best Verbal Response: (5) Oriented Best Motor Response: (6) Obeys Commands (CHAYO MCLEAN MD) Procedures/Interventions Wound Location: Face Other Wound Location Left forehead Wound Length (cm): 5 Wound's Depth, Shape: linear, sub Q Wound Explored: clean Irrigated w/ Saline (ccs): 500 Betadine Prep?: Yes Anesthesia: 1% Lidocaine Volume Anesthetic (ccs): 6 Suture: Prolene Suture Size: 5-0 Number of Sutures: 6 Sterile Dressing Applied?: No Progress Skin was cleaned with chlorhexidine. Local anesthetic was provided by lidocaine injection. Wound was then scrubbed with chlorhexidine and saline. Wound was then irrigated with sterile saline. Betadine prep was applied. Wound was approximated with 4 sutures of 5-0 Prolene by Brad Clemente, [place] 3 under my direct supervision. 2 additional sutures were placed by me. Patient tolerated the procedure well. (JAS MENDEZ MD) Progress/Results/Core Measures Results/Orders Lab Results Laboratory Tests Test 07/01/19 06:13 07/01/19 07:51 Range/Units White Blood Count 2.6 L 4.3-11.0 10^3/uL Red Blood Count 3.24 L 4.35-5.85 10^6/uL Hemoglobin 9.6 L 13.3-17.7 G/DL Hematocrit 29 L 40-54 % Mean Corpuscular Volume 91 80-99 FL Mean Corpuscular Hemoglobin 30 25-34 PG Mean Corpuscular Hemoglobin Concent 33 32-36 G/DL Red Cell Distribution Width 17.0 H 10.0-14.5 % Platelet Count 242 130-400 10^3/uL Mean Platelet Volume 8.7 7.4-10.4 FL Neutrophils (%) (Auto) 79 H 42-75 % Lymphocytes (%) (Auto) 13 12-44 % Monocytes (%) (Auto) 8 0-12 % Eosinophils (%) (Auto) 0 0-10 % Basophils (%) (Auto) 0 0-10 % Neutrophils # (Auto) 2.1 1.8-7.8 X 10^3 Lymphocytes # (Auto) 0.3 L 1.0-4.0 X 10^3 Monocytes # (Auto) 0.2 0.0-1.0 X 10^3 Eosinophils # (Auto) 0.0 0.0-0.3 10^3/uL Basophils # (Auto) 0.0 0.0-0.1 10^3/uL Sodium Level 139 135-145 MMOL/L Potassium Level 4.1 3.6-5.0 MMOL/L Chloride Level 105 98-107 MMOL/L Carbon Dioxide Level 19 L 21-32 MMOL/L Anion Gap 15 H 5-14 MMOL/L Blood Urea Nitrogen 8 7-18 MG/DL Creatinine 0.67 0.60-1.30 MG/DL Estimat Glomerular Filtration Rate > 60 BUN/Creatinine Ratio 12 Glucose Level 167 H 70-105 MG/DL Calcium Level 9.2 8.5-10.1 MG/DL Corrected Calcium 9.4 8.5-10.1 MG/DL Magnesium Level 1.6 1.6-2.4 MG/DL Total Bilirubin 0.4 0.1-1.0 MG/DL Aspartate Amino Transf (AST/SGOT) 13 5-34 U/L Alanine Aminotransferase (ALT/SGPT) 8 0-55 U/L Alkaline Phosphatase 145 H 40-136 U/L Total Protein 6.6 6.4-8.2 GM/DL Albumin 3.7 3.2-4.5 GM/DL Urine Color YELLOW Urine Clarity CLEAR Urine pH 7 5-9 Urine Specific [place] 1.005 L 1.016-1.022 Urine Protein NEGATIVE NEGATIVE Urine Glucose (UA) 3+ H NEGATIVE Urine Ketones NEGATIVE NEGATIVE Urine Nitrite NEGATIVE NEGATIVE Urine Bilirubin NEGATIVE NEGATIVE Urine Urobilinogen NORMAL NORMAL MG/DL Urine Leukocyte Esterase NEGATIVE NEGATIVE Urine RBC (Auto) NEGATIVE NEGATIVE Urine RBC NONE /HPF Urine WBC RARE /HPF Urine Crystals NONE /LPF Urine Bacteria NEGATIVE /HPF Urine Casts NONE /LPF Urine Mucus NEGATIVE /LPF Urine Culture Indicated NO (JAS MENDEZ MD) My Orders Orders - JAS MENDEZ MD Cbc With Automated Diff (07/01/19 06:04) Comprehensive Metabolic Panel (07/01/19 06:04) Magnesium (07/01/19 06:04) Ua Culture If Indicated (07/01/19 06:04) Ed Iv/Invasive Line Start (07/01/19 06:04) Lidocaine 1% Inj 20 Ml (Xylocaine 1% Inj (07/01/19 06:30) (JAS MENDEZ MD) Medications Given in ED (JAS MENDEZ MD) Vital Signs/I&O 07/01/19 07/01/19 05:43 08:39 Temp 35.0 Pulse 87 85 Resp 18 16 B/P (MAP) 140/96 (111) 133/86 Pulse Ox 100 O2 Delivery Room Air (JAS MENDEZ MD) Progress Progress Note : Progress Note Seen and evaluated. CT head and neck ordered. Tetanus updated. Care transferred to Dr. Mancia at [address] (CHAYO MCLEAN MD) Progress Note : Progress Note Care of this patient was assumed from Dr. Mclean. Labs were reviewed. No lab findings requiring intervention were observed. A CT of the head was viewed and report reviewed. There were no serious injuries identified. Laceration of the face was repaired in the usual fashion by Brad Clemente, MS 3 under my direct supervision. Patient was dismissed home in stable condition. (JAS MENDEZ MD) Diagnostic Imaging Diagonstic Imaging: CT Plain Films/CT/US/NM/MRI: c-spine, head Comments CT head and C-spine viewed by me and report reviewed. See report below: NAME: REFUGIO WESLEY [facility] REC#: [id number] PT STATUS: REG ER : 1960 PHYSICIAN: CHAYO MCLEAN MD ADMIT DATE: 07/01/19/ER Draft Date of Exam:07/01/19 CT HEAD/CERVICAL SPINE WO EXAMINATION: CT head and CT cervical spine without contrast. TECHNIQUE: Multiple contiguous axial images were obtained through the brain and cervical spine without the use of intravenous contrast. Sagittal and coronal reformations through the cervical spine were then performed. All CT scans use one or more of the following dose optimizing techniques: automated exposure control, MA and/or KvP adjustment based on a patient size and exam type, or iterative reconstruction. INDICATION: Fall. Comparison is 05/14/2019 FINDINGS: There is a chronic left basal ganglia lacunar infarct. No mass effect or midline shift. The ventricles are normal in size and configuration. Basilar cisterns are patent. There are no intra- or extra-axial fluid collections. There is no intracranial hemorrhage. The orbits are normal. Paranasal sinuses are normal. Mastoid air cells are clear. No soft tissue abnormality is seen. No osseus lesions or fractures are seen. The alignment of the cervical spine is normal. No fracture is seen. Vertebral body heights are normal. The craniocervical junction is normal. There is multilevel degenerative disc disease from C3-C7. There are disc osteophyte complexes at these levels. There is moderate to severe multilevel uncovertebral arthropathy most pronounced at C3/C5 on the right. This results in multilevel right-sided neural foraminal stenosis. There is no osseus spinal canal stenosis. No soft tissue abnormality is seen in the neck. Limited views of the superior thorax are normal. IMPRESSION: 1. No acute intracranial abnormality. 2. No cervical spine fracture. Dictated on workstation # [id number] Dict: 07/01/19 0632 Trans: 07/01/19 0646 [id number] Interpreted by: DEBORAH FROST MD (JAS MENDEZ MD) Departure Impression Primary Impression: Fall on same level Qualified Codes: W18.30XA - Fall on same level, unspecified, initial encounter Additional Impression: Laceration of forehead Qualified Codes: S01.81XA - Laceration without foreign body of other part of head, initial encounter Disposition: HOME, SELF-CARE Condition: Improved Departure-Patient Inst. Decision time for Depature: 08:19 (JAS MENDEZ MD) Referrals: HEBER MARTINEZ DO (PCP/Family) Primary Care Physician Patient Instructions: Laceration Repair With Stitches (DC) Add. Discharge Instructions: Please walk carefully and use your walker when appropriate. Keep your wound clean and dry except for normal showering. You may allow soapy water to run over the wound starting this afternoon. Monitor the wound for signs of infection such as increasing redness, increasing swelling, puslike drainage, or fever. Return to care promptly if you notice these symptoms. Return to the emergency room in about 7 days to have your sutures removed. All discharge instructions reviewed with patient and/or family. Voiced understanding. CHAYO MCLEAN MD Jul 01, 2019 06:09 JAS MENDEZ MD Jul 01, 2019 07:40
[2019-07-01] MEDS ORDERED: TETANUS,DIPTH,PERTUSS P/F (BOOSTRIX) 0.5 ML VIAL IM ONE (06:15)
[2019-07-01 06:22] LABS: BASOPHILS % (AUTO) 0 % (0-10); EOSINOPHILS % (AUTO) 0 % (0-10); HEMATOCRIT 29 % (40-54); HEMOGLOBIN 9.6 G/DL (13.3-17.7); LYMPHOCYTES # (AUTO) 0.3 X 10^3 (1.0-4.0); LYMPHOCYTES % (AUTO) 13 % (12-44); MEAN CORPUSCULAR HEMOGLOBIN 30 PG (25-34); MEAN CORPUSCULAR HGB CONC 33 G/DL (32-36); MEAN CORPUSCULAR VOLUME 91 FL (80-99); MEAN PLATELET VOLUME 8.7 FL (7.4-10.4); MONOCYTES # (AUTO) 0.2 X 10^3 (0.0-1.0); MONOCYTES % (AUTO) 8 % (0-12); NEUTROPHILS # (AUTO) 2.1 X 10^3 (1.8-7.8); NEUTROPHILS % (AUTO) 79 % (42-75); PLATELET COUNT 242 10^3/uL (130-400); WHITE BLOOD COUNT 2.6 10^3/uL (4.3-11.0)
[2019-07-01] MEDS ORDERED: LIDOCAINE 1% INJ 20 ML 20 ML VIAL INJ ONE (06:30)
[2019-07-01 06:42] LABS: ALANINE AMINOTRANSFERASE 8 U/L (0-55); ALBUMIN 3.7 GM/DL (3.2-4.5); ALKALINE PHOSPHATASE 145 U/L (40-136); BILIRUBIN,TOTAL 0.4 MG/DL (0.1-1.0); BUN/CREATININE RATIO 12; CALCIUM 9.2 MG/DL (8.5-10.1); CARBON DIOXIDE 19 MMOL/L (21-32); CHLORIDE 105 MMOL/L (98-107); CREATININE SERUM 0.67 MG/DL (0.60-1.30); GFR ESTIMATED > 60; GLUCOSE 167 MG/DL (70-105); MAGNESIUM 1.6 MG/DL (1.6-2.4); POTASSIUM 4.1 MMOL/L (3.6-5.0); SODIUM 139 MMOL/L (135-145); TOTAL PROTEIN 6.6 GM/DL (6.4-8.2)
--- NOTE | 2019-07-01 06:46 | Diagnostic Imaging Report ---
EXAMINATION: CT head and CT cervical spine without contrast. TECHNIQUE: Multiple contiguous axial images were obtained through the brain and cervical spine without the use of intravenous contrast. Sagittal and coronal reformations through the cervical spine were then performed. All CT scans use one or more of the following dose optimizing techniques: automated exposure control, MA and/or KvP adjustment based on a patient size and exam type, or iterative reconstruction. INDICATION: Fall. Comparison is 05/14/2019 FINDINGS: There is a chronic left basal ganglia lacunar infarct. No mass effect or midline shift. The ventricles are normal in size and configuration. Basilar cisterns are patent. There are no intra- or extra-axial fluid collections. There is no intracranial hemorrhage. The orbits are normal. Paranasal sinuses are normal. Mastoid air cells are clear. No soft tissue abnormality is seen. No osseus lesions or fractures are seen. The alignment of the cervical spine is normal. No fracture is seen. Vertebral body heights are normal. The craniocervical junction is normal. There is multilevel degenerative disc disease from C3-C7. There are disc osteophyte complexes at these levels. There is moderate to severe multilevel uncovertebral arthropathy most pronounced at C3/C5 on the right. This results in multilevel right-sided neural foraminal stenosis. There is no osseus spinal canal stenosis. No soft tissue abnormality is seen in the neck. Limited views of the superior thorax are normal. IMPRESSION: 1. No acute intracranial abnormality. 2. No cervical spine fracture. Dictated by: Dictated on workstation # [id number]
[2019-07-01 07:57] LABS: BILIRUBIN,URINE NEGATIVE (NEGATIVE); CLARITY,URINE CLEAR; COLOR,URINE YELLOW; GLUCOSE, URINE (UA) 3+ (NEGATIVE); KETONES,URINE NEGATIVE (NEGATIVE); LEUKOCYTE ESTERASE ,URINE NEGATIVE (NEGATIVE); NITRITE,URINE NEGATIVE (NEGATIVE); PH,URINE 7 (5-9); PROTEIN,URINE NEGATIVE (NEGATIVE); UROBILINOGEN,URINE NORMAL (NORMAL)
[2019-07-01 08:03] LABS: BACTERIA,URINE NEGATIVE /HPF; WBC,URINE RARE /HPF
[2019-07-01 08:39] VITALS: BP 133/86
== END 2019-07-01 08:39 | disposition home or self-care (01) ==
LOC: EDUNIT# 05:30 → ER 05:33
DX: S01.81XA Laceration without foreign body of other part of head, initial encounter (principal); I10 Essential (primary) hypertension; E78.00 Pure hypercholesterolemia, unspecified; E11.40 Type 2 diabetes mellitus with diabetic neuropathy, unspecified; Z23 Encounter for immunization; Z85.72 Personal history of non-Hodgkin lymphomas; Z95.5 Presence of coronary angioplasty implant and graft; Z79.01 Long term (current) use of anticoagulants; Z79.82 Long term (current) use of aspirin; Z79.02 Long term (current) use of antithrombotics/antiplatelets; Z79.84 Long term (current) use of oral hypoglycemic drugs; Z87.891 Personal history of nicotine dependence; Z82.49 Family history of ischemic heart disease and other diseases of the circulatory system; W01.190A Fall on same level from slipping, tripping and stumbling with subsequent striking against furniture, initial encounter
CPT/HCPCS: 36415; 70450; 72125; 80053; 81000; 83735; 85025; 90715

== ENCOUNTER → 2019-07-02 | Outpatient (CLI) | payer OTHER | LOC: CARD 11:40 | PROVIDERS: ATTEND Internal Medicine Interventional Cardiology | DX: I48.91 Unspecified atrial fibrillation (principal); I25.10 Atherosclerotic heart disease of native coronary artery without angina pectoris; I51.7 Cardiomegaly; Z86.711 Personal history of pulmonary embolism | CPT/HCPCS: 93306 ==

== ENCOUNTER 2019-07-08 15:29 | Emergency (ER) | payer OTHER ==
[~2019-07-08] VITALS: Ht 182 cm; Wt 90.9 kg
[2019-07-08 15:40] VITALS: BP 113/76
== END 2019-07-08 15:40 | disposition home or self-care (01) ==
LOC: EDUNIT# 15:29 → ER 15:30
DX: S01.81XD Laceration without foreign body of other part of head, subsequent encounter (principal); X58.XXXD Exposure to other specified factors, subsequent encounter

== ENCOUNTER 2019-08-24 15:30 | Outpatient (RCR) | payer MEDICARE, OTHER ==
[2019-05-27 11:09] LABS: BASOPHILS % (AUTO) 0 % (0-10); EOSINOPHILS # (AUTO) 0.1 10^3/uL (0.0-0.3); EOSINOPHILS % (AUTO) 2 % (0-10); HEMATOCRIT 25 % (40-54); HEMOGLOBIN 8.1 G/DL (13.3-17.7); LYMPHOCYTES # (AUTO) 0.4 X 10^3 (1.0-4.0); LYMPHOCYTES % (AUTO) 11 % (12-44); MEAN CORPUSCULAR HEMOGLOBIN 30 PG (25-34); MEAN CORPUSCULAR HGB CONC 32 G/DL (32-36); MEAN CORPUSCULAR VOLUME 94 FL (80-99); MEAN PLATELET VOLUME 9.2 FL (7.4-10.4); MONOCYTES # (AUTO) 0.1 X 10^3 (0.0-1.0); MONOCYTES % (AUTO) 4 % (0-12); NEUTROPHILS % (AUTO) 83 % (42-75); PLATELET COUNT 101 10^3/uL (130-400); RED CELL DISTRIBUTION WIDTH 20.3 % (10.0-14.5); WHITE BLOOD COUNT 3.6 10^3/uL (4.3-11.0)
[2019-05-27 11:36] LABS: ALANINE AMINOTRANSFERASE 17 U/L (0-55); ALBUMIN 3.2 GM/DL (3.2-4.5); ALKALINE PHOSPHATASE 92 U/L (40-136); BILIRUBIN,TOTAL 1.1 MG/DL (0.1-1.0); BUN/CREATININE RATIO 20; CALCIUM 8.4 MG/DL (8.5-10.1); CARBON DIOXIDE 24 MMOL/L (21-32); CHLORIDE 101 MMOL/L (98-107); CREATININE SERUM 0.56 MG/DL (0.60-1.30); GFR ESTIMATED > 60; GLUCOSE 138 MG/DL (70-105); POTASSIUM 4.2 MMOL/L (3.6-5.0); SODIUM 134 MMOL/L (135-145); TOTAL PROTEIN 5.5 GM/DL (6.4-8.2); URIC ACID 3.4 MG/DL (2.6-7.2)
[2019-06-04 09:20] LABS: BASOPHILS % (AUTO) 0 % (0-10); EOSINOPHILS # (AUTO) 0.2 10^3/uL (0.0-0.3); EOSINOPHILS % (AUTO) 7 % (0-10); HEMATOCRIT 25 % (40-54); HEMOGLOBIN 7.8 G/DL (13.3-17.7); LYMPHOCYTES # (AUTO) 0.5 X 10^3 (1.0-4.0); LYMPHOCYTES % (AUTO) 19 % (12-44); MEAN CORPUSCULAR HEMOGLOBIN 30 PG (25-34); MEAN CORPUSCULAR HGB CONC 31 G/DL (32-36); MEAN CORPUSCULAR VOLUME 97 FL (80-99); MEAN PLATELET VOLUME 9.2 FL (7.4-10.4); MONOCYTES # (AUTO) 0.5 X 10^3 (0.0-1.0); MONOCYTES % (AUTO) 17 % (0-12); NEUTROPHILS # (AUTO) 1.5 X 10^3 (1.8-7.8); NEUTROPHILS % (AUTO) 56 % (42-75); PLATELET COUNT 249 10^3/uL (130-400); RED CELL DISTRIBUTION WIDTH 21.7 % (10.0-14.5); WHITE BLOOD COUNT 2.7 10^3/uL (4.3-11.0)
[2019-06-04 09:44] LABS: ALANINE AMINOTRANSFERASE 7 U/L (0-55); ALBUMIN 3.3 GM/DL (3.2-4.5); ALKALINE PHOSPHATASE 158 U/L (40-136); BILIRUBIN,TOTAL 0.6 MG/DL (0.1-1.0); BUN/CREATININE RATIO 17; CALCIUM 8.4 MG/DL (8.5-10.1); CARBON DIOXIDE 23 MMOL/L (21-32); CHLORIDE 107 MMOL/L (98-107); CREATININE SERUM 0.65 MG/DL (0.60-1.30); GFR ESTIMATED > 60; GLUCOSE 130 MG/DL (70-105); SODIUM 140 MMOL/L (135-145); TOTAL PROTEIN 5.6 GM/DL (6.4-8.2); URIC ACID 4.2 MG/DL (2.6-7.2)
[2019-06-12 13:09] LABS: BASOPHILS % (AUTO) 1 % (0-10); EOSINOPHILS # (AUTO) 0.1 10^3/uL (0.0-0.3); EOSINOPHILS % (AUTO) 3 % (0-10); HEMATOCRIT 30 % (40-54); HEMOGLOBIN 9.5 G/DL (13.3-17.7); LYMPHOCYTES # (AUTO) 0.6 X 10^3 (1.0-4.0); LYMPHOCYTES % (AUTO) 23 % (12-44); MEAN CORPUSCULAR HEMOGLOBIN 30 PG (25-34); MEAN CORPUSCULAR HGB CONC 32 G/DL (32-36); MEAN CORPUSCULAR VOLUME 92 FL (80-99); MEAN PLATELET VOLUME 9.1 FL (7.4-10.4); MONOCYTES # (AUTO) 0.3 X 10^3 (0.0-1.0); MONOCYTES % (AUTO) 11 % (0-12); NEUTROPHILS # (AUTO) 1.6 X 10^3 (1.8-7.8); NEUTROPHILS % (AUTO) 62 % (42-75); PLATELET COUNT 332 10^3/uL (130-400); RED CELL DISTRIBUTION WIDTH 18.2 % (10.0-14.5); WHITE BLOOD COUNT 2.7 10^3/uL (4.3-11.0)
[2019-06-15 16:28] LABS: BASOPHILS % (AUTO) 1 % (0-10); EOSINOPHILS # (AUTO) 0.2 10^3/uL (0.0-0.3); EOSINOPHILS % (AUTO) 3 % (0-10); HEMATOCRIT 33 % (40-54); HEMOGLOBIN 10.5 G/DL (13.3-17.7); LYMPHOCYTES # (AUTO) 1.4 X 10^3 (1.0-4.0); LYMPHOCYTES % (AUTO) 26 % (12-44); MEAN CORPUSCULAR HEMOGLOBIN 29 PG (25-34); MEAN CORPUSCULAR HGB CONC 31 G/DL (32-36); MEAN CORPUSCULAR VOLUME 92 FL (80-99); MEAN PLATELET VOLUME 8.8 FL (7.4-10.4); MONOCYTES # (AUTO) 0.9 X 10^3 (0.0-1.0); MONOCYTES % (AUTO) 16 % (0-12); NEUTROPHILS # (AUTO) 2.9 X 10^3 (1.8-7.8); NEUTROPHILS % (AUTO) 54 % (42-75); PLATELET COUNT 285 10^3/uL (130-400); RED CELL DISTRIBUTION WIDTH 19.7 % (10.0-14.5); WHITE BLOOD COUNT 5.4 10^3/uL (4.3-11.0)
[2019-06-15 16:47] LABS: ALANINE AMINOTRANSFERASE 19 U/L (0-55); ALKALINE PHOSPHATASE 174 U/L (40-136); BILIRUBIN,TOTAL 0.5 MG/DL (0.1-1.0); BUN/CREATININE RATIO 14; CALCIUM 9.3 MG/DL (8.5-10.1); CARBON DIOXIDE 25 MMOL/L (21-32); CHLORIDE 100 MMOL/L (98-107); CREATININE SERUM 0.79 MG/DL (0.60-1.30); GFR ESTIMATED > 60; GLUCOSE 138 MG/DL (70-105); POTASSIUM 4.7 MMOL/L (3.6-5.0); SODIUM 135 MMOL/L (135-145); TOTAL PROTEIN 7.4 GM/DL (6.4-8.2); URIC ACID 3.8 MG/DL (2.6-7.2)
[2019-06-18 15:59] LABS: BASOPHILS # (AUTO) 0.1 10^3/uL (0.0-0.1); BASOPHILS % (AUTO) 1 % (0-10); EOSINOPHILS # (AUTO) 0.1 10^3/uL (0.0-0.3); EOSINOPHILS % (AUTO) 1 % (0-10); HEMATOCRIT 30 % (40-54); HEMOGLOBIN 9.8 G/DL (13.3-17.7); LYMPHOCYTES # (AUTO) 0.9 X 10^3 (1.0-4.0); LYMPHOCYTES % (AUTO) 13 % (12-44); MEAN CORPUSCULAR HEMOGLOBIN 30 PG (25-34); MEAN CORPUSCULAR HGB CONC 32 G/DL (32-36); MEAN CORPUSCULAR VOLUME 92 FL (80-99); MEAN PLATELET VOLUME 9.1 FL (7.4-10.4); MONOCYTES # (AUTO) 0.8 X 10^3 (0.0-1.0); MONOCYTES % (AUTO) 11 % (0-12); NEUTROPHILS # (AUTO) 5.2 X 10^3 (1.8-7.8); NEUTROPHILS % (AUTO) 75 % (42-75); PLATELET COUNT 212 10^3/uL (130-400); RED CELL DISTRIBUTION WIDTH 20.1 % (10.0-14.5)
[2019-06-18 16:24] LABS: BUN/CREATININE RATIO 15; CALCIUM 8.9 MG/DL (8.5-10.1); CARBON DIOXIDE 23 MMOL/L (21-32); CHLORIDE 106 MMOL/L (98-107); CREATININE SERUM 0.71 MG/DL (0.60-1.30); GFR ESTIMATED > 60; GLUCOSE 123 MG/DL (70-105); POTASSIUM 4.3 MMOL/L (3.6-5.0); SODIUM 137 MMOL/L (135-145); URIC ACID 3.9 MG/DL (2.6-7.2)
[2019-06-30 10:58] LABS: BASOPHILS % (AUTO) 1 % (0-10); EOSINOPHILS # (AUTO) 0.5 10^3/uL (0.0-0.3); EOSINOPHILS % (AUTO) 10 % (0-10); HEMATOCRIT 32 % (40-54); HEMOGLOBIN 10.3 G/DL (13.3-17.7); LYMPHOCYTES # (AUTO) 0.7 X 10^3 (1.0-4.0); LYMPHOCYTES % (AUTO) 14 % (12-44); MEAN CORPUSCULAR HEMOGLOBIN 30 PG (25-34); MEAN CORPUSCULAR HGB CONC 32 G/DL (32-36); MEAN CORPUSCULAR VOLUME 93 FL (80-99); MEAN PLATELET VOLUME 8.4 FL (7.4-10.4); MONOCYTES # (AUTO) 0.8 X 10^3 (0.0-1.0); MONOCYTES % (AUTO) 16 % (0-12); NEUTROPHILS # (AUTO) 2.9 X 10^3 (1.8-7.8); NEUTROPHILS % (AUTO) 59 % (42-75); PLATELET COUNT 255 10^3/uL (130-400); RED CELL DISTRIBUTION WIDTH 17.2 % (10.0-14.5)
[2019-06-30 11:20] LABS: ALANINE AMINOTRANSFERASE 11 U/L (0-55); ALBUMIN 3.9 GM/DL (3.2-4.5); ALKALINE PHOSPHATASE 173 U/L (40-136); BILIRUBIN,TOTAL 0.4 MG/DL (0.1-1.0); BUN/CREATININE RATIO 11; CALCIUM 9.1 MG/DL (8.5-10.1); CARBON DIOXIDE 26 MMOL/L (21-32); CHLORIDE 101 MMOL/L (98-107); GFR ESTIMATED > 60; GLUCOSE 158 MG/DL (70-105); POTASSIUM 4.3 MMOL/L (3.6-5.0); SODIUM 137 MMOL/L (135-145); TOTAL PROTEIN 6.6 GM/DL (6.4-8.2)
[2019-07-07 10:22] LABS: BASOPHILS % (AUTO) 0 % (0-10); EOSINOPHILS # (AUTO) 0.3 10^3/uL (0.0-0.3); EOSINOPHILS % (AUTO) 2 % (0-10); HEMATOCRIT 35 % (40-54); HEMOGLOBIN 11.2 G/DL (13.3-17.7); LYMPHOCYTES # (AUTO) 1.2 X 10^3 (1.0-4.0); LYMPHOCYTES % (AUTO) 8 % (12-44); MEAN CORPUSCULAR HEMOGLOBIN 30 PG (25-34); MEAN CORPUSCULAR HGB CONC 32 G/DL (32-36); MEAN CORPUSCULAR VOLUME 92 FL (80-99); MEAN PLATELET VOLUME 8.8 FL (7.4-10.4); MONOCYTES # (AUTO) 0.5 X 10^3 (0.0-1.0); MONOCYTES % (AUTO) 4 % (0-12); NEUTROPHILS # (AUTO) 12.5 X 10^3 (1.8-7.8); NEUTROPHILS % (AUTO) 86 % (42-75); PLATELET COUNT 267 10^3/uL (130-400); RED CELL DISTRIBUTION WIDTH 17.1 % (10.0-14.5); WHITE BLOOD COUNT 14.5 10^3/uL (4.3-11.0)
[2019-07-07 10:41] LABS: BUN/CREATININE RATIO 24; CALCIUM 8.7 MG/DL (8.5-10.1); CARBON DIOXIDE 25 MMOL/L (21-32); CHLORIDE 101 MMOL/L (98-107); CREATININE SERUM 0.76 MG/DL (0.60-1.30); GFR ESTIMATED > 60; GLUCOSE 137 MG/DL (70-105); POTASSIUM 4.1 MMOL/L (3.6-5.0); SODIUM 137 MMOL/L (135-145)
[2019-07-14 15:44] LABS: BASOPHILS # (AUTO) 0.1 10^3/uL (0.0-0.1); BASOPHILS % (AUTO) 1 % (0-10); EOSINOPHILS # (AUTO) 0.1 10^3/uL (0.0-0.3); EOSINOPHILS % (AUTO) 2 % (0-10); HEMATOCRIT 35 % (40-54); HEMOGLOBIN 11.1 G/DL (13.3-17.7); LYMPHOCYTES # (AUTO) 0.9 X 10^3 (1.0-4.0); LYMPHOCYTES % (AUTO) 10 % (12-44); MEAN CORPUSCULAR HEMOGLOBIN 30 PG (25-34); MEAN CORPUSCULAR HGB CONC 32 G/DL (32-36); MEAN CORPUSCULAR VOLUME 94 FL (80-99); MEAN PLATELET VOLUME 9.3 FL (7.4-10.4); MONOCYTES # (AUTO) 0.7 X 10^3 (0.0-1.0); MONOCYTES % (AUTO) 9 % (0-12); NEUTROPHILS # (AUTO) 6.5 X 10^3 (1.8-7.8); NEUTROPHILS % (AUTO) 79 % (42-75); PLATELET COUNT 132 10^3/uL (130-400); RED CELL DISTRIBUTION WIDTH 17.9 % (10.0-14.5); WHITE BLOOD COUNT 8.3 10^3/uL (4.3-11.0)
[2019-07-14 16:02] LABS: BUN/CREATININE RATIO 13; CALCIUM 9.1 MG/DL (8.5-10.1); CARBON DIOXIDE 27 MMOL/L (21-32); CHLORIDE 100 MMOL/L (98-107); CREATININE SERUM 0.82 MG/DL (0.60-1.30); GFR ESTIMATED > 60; GLUCOSE 150 MG/DL (70-105); POTASSIUM 4.7 MMOL/L (3.6-5.0); SODIUM 138 MMOL/L (135-145)
[2019-07-21 09:24] LABS: BASOPHILS % (AUTO) 0 % (0-10); EOSINOPHILS # (AUTO) 0.1 10^3/uL (0.0-0.3); EOSINOPHILS % (AUTO) 2 % (0-10); HEMATOCRIT 33 % (40-54); HEMOGLOBIN 10.6 G/DL (13.3-17.7); LYMPHOCYTES # (AUTO) 0.9 X 10^3 (1.0-4.0); LYMPHOCYTES % (AUTO) 13 % (12-44); MEAN CORPUSCULAR HEMOGLOBIN 30 PG (25-34); MEAN CORPUSCULAR HGB CONC 32 G/DL (32-36); MEAN CORPUSCULAR VOLUME 94 FL (80-99); MEAN PLATELET VOLUME 8.5 FL (7.4-10.4); MONOCYTES # (AUTO) 0.7 X 10^3 (0.0-1.0); MONOCYTES % (AUTO) 10 % (0-12); NEUTROPHILS # (AUTO) 5.2 X 10^3 (1.8-7.8); NEUTROPHILS % (AUTO) 75 % (42-75); PLATELET COUNT 190 10^3/uL (130-400); RED CELL DISTRIBUTION WIDTH 18.2 % (10.0-14.5)
[2019-07-21 09:53] LABS: ALANINE AMINOTRANSFERASE 13 U/L (0-55); ALBUMIN 4.1 GM/DL (3.2-4.5); ALKALINE PHOSPHATASE 132 U/L (40-136); BILIRUBIN,TOTAL 0.4 MG/DL (0.1-1.0); BUN/CREATININE RATIO 12; CALCIUM 9.4 MG/DL (8.5-10.1); CARBON DIOXIDE 23 MMOL/L (21-32); CHLORIDE 104 MMOL/L (98-107); CREATININE SERUM 0.75 MG/DL (0.60-1.30); GFR ESTIMATED > 60; GLUCOSE 171 MG/DL (70-105); MAGNESIUM 1.6 MG/DL (1.6-2.4); SODIUM 140 MMOL/L (135-145); TOTAL PROTEIN 6.6 GM/DL (6.4-8.2)
[2019-07-28 15:51] LABS: BASOPHILS % (AUTO) 0 % (0-10); EOSINOPHILS # (AUTO) 0.3 10^3/uL (0.0-0.3); EOSINOPHILS % (AUTO) 4 % (0-10); HEMATOCRIT 33 % (40-54); HEMOGLOBIN 10.5 G/DL (13.3-17.7); LYMPHOCYTES # (AUTO) 0.8 X 10^3 (1.0-4.0); LYMPHOCYTES % (AUTO) 11 % (12-44); MEAN CORPUSCULAR HEMOGLOBIN 30 PG (25-34); MEAN CORPUSCULAR HGB CONC 32 G/DL (32-36); MEAN CORPUSCULAR VOLUME 95 FL (80-99); MEAN PLATELET VOLUME 9.2 FL (7.4-10.4); MONOCYTES # (AUTO) 0.6 X 10^3 (0.0-1.0); MONOCYTES % (AUTO) 8 % (0-12); NEUTROPHILS # (AUTO) 5.5 X 10^3 (1.8-7.8); NEUTROPHILS % (AUTO) 76 % (42-75); PLATELET COUNT 175 10^3/uL (130-400); RED CELL DISTRIBUTION WIDTH 17.7 % (10.0-14.5); WHITE BLOOD COUNT 7.2 10^3/uL (4.3-11.0)
[2019-07-28 16:08] LABS: ALANINE AMINOTRANSFERASE 15 U/L (0-55); ALBUMIN 3.9 GM/DL (3.2-4.5); ALKALINE PHOSPHATASE 130 U/L (40-136); BILIRUBIN,TOTAL 0.3 MG/DL (0.1-1.0); BUN/CREATININE RATIO 18; CALCIUM 8.5 MG/DL (8.5-10.1); CARBON DIOXIDE 27 MMOL/L (21-32); CHLORIDE 103 MMOL/L (98-107); CREATININE SERUM 0.72 MG/DL (0.60-1.30); GFR ESTIMATED > 60; GLUCOSE 150 MG/DL (70-105); MAGNESIUM 1.7 MG/DL (1.6-2.4); POTASSIUM 3.9 MMOL/L (3.6-5.0); SODIUM 140 MMOL/L (135-145); TOTAL PROTEIN 5.9 GM/DL (6.4-8.2)
[2019-08-04 15:49] LABS: BASOPHILS # (AUTO) 0.1 10^3/uL (0.0-0.1); BASOPHILS % (AUTO) 1 % (0-10); EOSINOPHILS # (AUTO) 0.1 10^3/uL (0.0-0.3); EOSINOPHILS % (AUTO) 1 % (0-10); HEMATOCRIT 37 % (40-54); HEMOGLOBIN 12.1 G/DL (13.3-17.7); LYMPHOCYTES # (AUTO) 1.2 X 10^3 (1.0-4.0); LYMPHOCYTES % (AUTO) 15 % (12-44); MEAN CORPUSCULAR HEMOGLOBIN 31 PG (25-34); MEAN CORPUSCULAR HGB CONC 32 G/DL (32-36); MEAN CORPUSCULAR VOLUME 95 FL (80-99); MEAN PLATELET VOLUME 9.8 FL (7.4-10.4); MONOCYTES # (AUTO) 0.7 X 10^3 (0.0-1.0); MONOCYTES % (AUTO) 9 % (0-12); NEUTROPHILS # (AUTO) 5.8 X 10^3 (1.8-7.8); NEUTROPHILS % (AUTO) 74 % (42-75); PLATELET COUNT 157 10^3/uL (130-400); WHITE BLOOD COUNT 7.9 10^3/uL (4.3-11.0)
[2019-08-04 16:12] LABS: CARBON DIOXIDE 27 MMOL/L (21-32); CHLORIDE 100 MMOL/L (98-107); CREATININE SERUM 0.76 MG/DL (0.60-1.30); POTASSIUM 4.7 MMOL/L (3.6-5.0); SODIUM 137 MMOL/L (135-145)
[2019-08-04 16:13] LABS: BUN/CREATININE RATIO 16; CALCIUM 9.5 MG/DL (8.5-10.1); GFR ESTIMATED > 60; GLUCOSE 127 MG/DL (70-105)
[2019-08-10 11:06] LABS: BASOPHILS # (AUTO) 0.1 10^3/uL (0.0-0.1); BASOPHILS % (AUTO) 1 % (0-10); EOSINOPHILS # (AUTO) 0.1 10^3/uL (0.0-0.3); EOSINOPHILS % (AUTO) 1 % (0-10); HEMATOCRIT 34 % (40-54); HEMOGLOBIN 11.2 G/DL (13.3-17.7); LYMPHOCYTES # (AUTO) 0.9 X 10^3 (1.0-4.0); LYMPHOCYTES % (AUTO) 15 % (12-44); MEAN CORPUSCULAR HEMOGLOBIN 31 PG (25-34); MEAN CORPUSCULAR HGB CONC 33 G/DL (32-36); MEAN CORPUSCULAR VOLUME 95 FL (80-99); MEAN PLATELET VOLUME 9.3 FL (7.4-10.4); MONOCYTES # (AUTO) 0.6 X 10^3 (0.0-1.0); MONOCYTES % (AUTO) 11 % (0-12); NEUTROPHILS # (AUTO) 4.4 X 10^3 (1.8-7.8); NEUTROPHILS % (AUTO) 73 % (42-75); PLATELET COUNT 178 10^3/uL (130-400)
[2019-08-10 11:33] LABS: ALANINE AMINOTRANSFERASE 15 U/L (0-55); ALBUMIN 4.2 GM/DL (3.2-4.5); ALKALINE PHOSPHATASE 111 U/L (40-136); BILIRUBIN,TOTAL 0.4 MG/DL (0.1-1.0); BUN/CREATININE RATIO 18; CALCIUM 9.2 MG/DL (8.5-10.1); CARBON DIOXIDE 25 MMOL/L (21-32); CHLORIDE 102 MMOL/L (98-107); GFR ESTIMATED > 60; GLUCOSE 160 MG/DL (70-105); MAGNESIUM 1.7 MG/DL (1.6-2.4); POTASSIUM 4.6 MMOL/L (3.6-5.0); SODIUM 138 MMOL/L (135-145); TOTAL PROTEIN 6.9 GM/DL (6.4-8.2)
[2019-08-17 11:54] LABS: BASOPHILS % (AUTO) 1 % (0-10); EOSINOPHILS # (AUTO) 0.2 10^3/uL (0.0-0.3); EOSINOPHILS % (AUTO) 4 % (0-10); HEMATOCRIT 34 % (40-54); HEMOGLOBIN 11.1 G/DL (13.3-17.7); LYMPHOCYTES # (AUTO) 0.8 X 10^3 (1.0-4.0); LYMPHOCYTES % (AUTO) 14 % (12-44); MEAN CORPUSCULAR HGB CONC 32 G/DL (32-36); MEAN CORPUSCULAR VOLUME 95 FL (80-99); MEAN PLATELET VOLUME 8.8 FL (7.4-10.4); MONOCYTES # (AUTO) 0.7 X 10^3 (0.0-1.0); MONOCYTES % (AUTO) 13 % (0-12); NEUTROPHILS # (AUTO) 3.9 X 10^3 (1.8-7.8); NEUTROPHILS % (AUTO) 69 % (42-75); PLATELET COUNT 133 10^3/uL (130-400); RED CELL DISTRIBUTION WIDTH 17.1 % (10.0-14.5); WHITE BLOOD COUNT 5.6 10^3/uL (4.3-11.0)
[2019-08-17 11:56] LABS: MEAN CORPUSCULAR HEMOGLOBIN 30 PG (25-34)
[2019-08-17 12:12] LABS: BUN/CREATININE RATIO 22; CALCIUM 8.6 MG/DL (8.5-10.1); CARBON DIOXIDE 29 MMOL/L (21-32); CHLORIDE 104 MMOL/L (98-107); CREATININE SERUM 0.72 MG/DL (0.60-1.30); GFR ESTIMATED > 60; GLUCOSE 121 MG/DL (70-105); POTASSIUM 3.8 MMOL/L (3.6-5.0); SODIUM 140 MMOL/L (135-145)
[~2019-08-24] VITALS: Ht 185.4 cm; Wt 90.7 kg
[~2019-08-24 15:30] MED LIST changes: +ACETAMINOPHEN 325 MG TAB (TYLENOL) CANCER CTR ONE; +ACETAMINOPHEN 325 MG TAB (TYLENOL) CANCER CTR PO PRN; +ACETAMINOPHEN 500 MG TAB (TYLENOL) CANCER CTR ONE; +CYCLOPHOSPHAMIDE INJECTION 1,000 MG, CYCLOPHOSPHAMIDE INJECTION 500 MG in NS (IVPB) CAN... IV SCH; +ETOPOSIDE 100 MG in NORMAL SALINE (CANCER CENTER) 500 ML IV SCH; +FLU QUADRIvalent (5+ YOA) 2019-2020 (Cancer Ctr) 0.5 ML IM ONE; +FOSAPREPITANT DIMEGLUMINE 150 MG in NS (IVPB) CANCER CENTER ONLY 150 ML IV SCH; +NS IV 1000 ML (CANCER CTR) IV SCH; +NS IV 500 ML (CANCER CENTER) IV SCH; +ONDANSETRON MDV (CANCER CENTER 16 MG, DEXAMETHASONE INJECTION 10 MG in NS (IVPB) CANCER... IV SCH; +PALONOSETRON HCL 0.25 MG, DEXAMETHASONE INJECTION 10 MG in NS (IVPB) CANCER CENTER 50 ML IV SCH; +PEGFILGRASTIM 6 MG/0.6 ML ONPRO KIT SQ SCH; +PEGFILGRASTIM 6 MG/0.6ML NEULASTA SC SCH; +diphenhydrAMINE 25 MG TAB (BENADRYL) CANCER CENTER PO ONE; +diphenhydrAMINE 25 MG TAB (BENADRYL) CANCER CENTER PO SCH; +riTUXimab 500 MG, riTUXimab FOR IV INJ CONC 300 MG in NS (IVPB) CANCER CENTER 186 ML IV SCH; +vinCRIStine SULFATE 2 MG in NS (IVPB) CANCER CENTER 50 ML IV SCH
[2019-08-24 15:59] LABS: BASOPHILS % (AUTO) 1 % (0-10); EOSINOPHILS # (AUTO) 0.1 10^3/uL (0.0-0.3); EOSINOPHILS % (AUTO) 2 % (0-10); HEMATOCRIT 37 % (40-54); HEMOGLOBIN 11.9 G/DL (13.3-17.7); LYMPHOCYTES # (AUTO) 0.9 X 10^3 (1.0-4.0); LYMPHOCYTES % (AUTO) 15 % (12-44); MEAN CORPUSCULAR HEMOGLOBIN 31 PG (25-34); MEAN CORPUSCULAR HGB CONC 32 G/DL (32-36); MEAN CORPUSCULAR VOLUME 96 FL (80-99); MEAN PLATELET VOLUME 9.9 FL (7.4-10.4); MONOCYTES # (AUTO) 0.5 X 10^3 (0.0-1.0); MONOCYTES % (AUTO) 9 % (0-12); NEUTROPHILS # (AUTO) 4.4 X 10^3 (1.8-7.8); NEUTROPHILS % (AUTO) 74 % (42-75); PLATELET COUNT 113 10^3/uL (130-400); RED CELL DISTRIBUTION WIDTH 16.7 % (10.0-14.5); WHITE BLOOD COUNT 5.9 10^3/uL (4.3-11.0)
[2019-08-24 16:09] LABS: BUN/CREATININE RATIO 16; CALCIUM 9.2 MG/DL (8.5-10.1); CARBON DIOXIDE 23 MMOL/L (21-32); CHLORIDE 105 MMOL/L (98-107); CREATININE SERUM 0.82 MG/DL (0.60-1.30); GFR ESTIMATED > 60; GLUCOSE 158 MG/DL (70-105); POTASSIUM 4.3 MMOL/L (3.6-5.0); SODIUM 139 MMOL/L (135-145)
== END 2019-08-25 | disposition home or self-care (01) ==
LOC: ONC 15:30
PROVIDERS: ATTEND Internal Medicine Hematology & Oncology
DX: Z51.11 Encounter for antineoplastic chemotherapy (principal); C85.18 Unspecified B-cell lymphoma, lymph nodes of multiple sites; I25.10 Atherosclerotic heart disease of native coronary artery without angina pectoris; I25.2 Old myocardial infarction; Z86.711 Personal history of pulmonary embolism; Z79.01 Long term (current) use of anticoagulants; Z79.82 Long term (current) use of aspirin; Z79.02 Long term (current) use of antithrombotics/antiplatelets; Z95.5 Presence of coronary angioplasty implant and graft; Z98.1 Arthrodesis status
CPT/HCPCS: 36415; 36591; 80048; 80053; 83615; 83735; 84443; 84550; 85025; 90471; 96367; 96372; 96375; 96377; 96411; 96413; 96415; 96417; 99214; J2505; J9312

== ENCOUNTER → 2019-08-25 | Outpatient (CLI) | payer OTHER ==
[~2019-08-25] MED LIST changes: -ACETAMINOPHEN 325 MG TAB (TYLENOL) CANCER CTR ONE; -ACETAMINOPHEN 325 MG TAB (TYLENOL) CANCER CTR PO PRN; -ACETAMINOPHEN 500 MG TAB (TYLENOL) CANCER CTR ONE; -CYCLOPHOSPHAMIDE INJECTION 1,000 MG, CYCLOPHOSPHAMIDE INJECTION 500 MG in NS (IVPB) CAN... IV SCH; -ETOPOSIDE 100 MG in NORMAL SALINE (CANCER CENTER) 500 ML IV SCH; -FLU QUADRIvalent (5+ YOA) 2019-2020 (Cancer Ctr) 0.5 ML IM ONE; -FOSAPREPITANT DIMEGLUMINE 150 MG in NS (IVPB) CANCER CENTER ONLY 150 ML IV SCH; -NS IV 1000 ML (CANCER CTR) IV SCH; -NS IV 500 ML (CANCER CENTER) IV SCH; -ONDANSETRON MDV (CANCER CENTER 16 MG, DEXAMETHASONE INJECTION 10 MG in NS (IVPB) CANCER... IV SCH; -PALONOSETRON HCL 0.25 MG, DEXAMETHASONE INJECTION 10 MG in NS (IVPB) CANCER CENTER 50 ML IV SCH; -PEGFILGRASTIM 6 MG/0.6 ML ONPRO KIT SQ SCH; -PEGFILGRASTIM 6 MG/0.6ML NEULASTA SC SCH; -diphenhydrAMINE 25 MG TAB (BENADRYL) CANCER CENTER PO ONE; -diphenhydrAMINE 25 MG TAB (BENADRYL) CANCER CENTER PO SCH; -riTUXimab 500 MG, riTUXimab FOR IV INJ CONC 300 MG in NS (IVPB) CANCER CENTER 186 ML IV SCH; -vinCRIStine SULFATE 2 MG in NS (IVPB) CANCER CENTER 50 ML IV SCH
--- NOTE | 2019-08-28 10:00 | Diagnostic Imaging Report ---
PET/CT. INDICATION: Non-Hodgkin's lymphoma. EXAMINATION: After intravenous administration of 14.08 mCi of F18-FDG, a series of overlapping emission and transmission PET images was obtained. In the coronal, transaxial and sagittal planes, the area imaged extended from the skull base through the upper thighs. The patient's height is 6' 1" weight 207 pounds There are no prior PET/CT examinations available for comparison. Reportedly the patient has had a prior PET/CT exam at [facility] in [place], [place]. That study has been sent for and a comparison report will be issued when it arrives. The previous CTA chest exam performed at this institution on 05/14/2019 noted a large burden of bilateral pulmonary emboli as well as atelectasis/infiltrate involving both lung bases, particularly the right lower lobe. In addition there were widespread lytic bony lesions and compression deformities of L1, T11, T7 and T3. There has been a prior kyphoplasty of L1 and there were bilateral pedicle screws in place at T12. The previous exam also revealed mild splenomegaly. There did not appear to be any significant mediastinal or hilar adenopathy however. On this exam, the right lung base does seem somewhat better aerated. There are still some residual atelectasis/infiltrate in this region and there is a vague area of increased density in the right midlung. The area of increased density in the right midlung does show hypermetabolic activity although the maximum SUV in this area is only 2.0. Consequently this may be secondary to an inflammatory/infectious process and not neoplastic disease. There is no hypermetabolic mediastinal or hilar adenopathy. In the sagittal images do show areas of slightly increased activity involving the vertebral bodies of what appears to be T2, T4, T5 and T6. There may be some involvement of the L3 and L4 vertebral bodies as well. The CT images also showed vague areas of mixed density in the bony pelvis and these may represent neoplastic disease as well. There are not hypermetabolic. The maximum SUV of the bony lesions is only 2.8. There is no other hypermetabolic activity to indicate the presence of malignancy. The CT images failed to show any sign of an acute abnormality. The lower extremities were also included on this exam. There is a linear area of increased uptake in the midshaft of the left femur. The maximum SUV in this area is less than 2. CT images failed to show any definite abnormality and I suspect that this finding is a benign process. There is no other hypermetabolic activity involving the lower extremities. IMPRESSION: 1. The vague area of increased hypermetabolic activity in the right upper lobe may be due to atelectasis/infiltrate alone. There is no other hypermetabolic activity involving the soft tissues of the thorax to indicate neoplastic disease. 2. There is persistent slightly increased activity in the thoracic and lumbar vertebra. Most likely this is due to neoplastic disease. There is no other hypermetabolic focus to indicate the presence of malignancy. A comparison report is pending. Dictated on workstation # [id number]
== END ==
LOC: RAD 07:51
PROVIDERS: ATTEND Nurse Practitioner Adult Health
DX: Z01.89 Encounter for other specified special examinations (principal); C85.90 Non-Hodgkin lymphoma, unspecified, unspecified site

== ENCOUNTER 2019-11-02 10:09 | Outpatient (RCR) | payer OTHER ==
[2019-08-31 10:22] LABS: BASOPHILS % (AUTO) 1 % (0-10); EOSINOPHILS # (AUTO) 0.1 10^3/uL (0.0-0.3); EOSINOPHILS % (AUTO) 1 % (0-10); HEMATOCRIT 33 % (40-54); HEMOGLOBIN 10.8 G/DL (13.3-17.7); LYMPHOCYTES # (AUTO) 0.5 X 10^3 (1.0-4.0); LYMPHOCYTES % (AUTO) 8 % (12-44); MEAN CORPUSCULAR HEMOGLOBIN 31 PG (25-34); MEAN CORPUSCULAR HGB CONC 33 G/DL (32-36); MEAN CORPUSCULAR VOLUME 95 FL (80-99); MEAN PLATELET VOLUME 8.8 FL (7.4-10.4); MONOCYTES # (AUTO) 0.7 X 10^3 (0.0-1.0); MONOCYTES % (AUTO) 10 % (0-12); NEUTROPHILS # (AUTO) 5.2 X 10^3 (1.8-7.8); NEUTROPHILS % (AUTO) 80 % (42-75); PLATELET COUNT 181 10^3/uL (130-400); RED CELL DISTRIBUTION WIDTH 16.5 % (10.0-14.5); WHITE BLOOD COUNT 6.4 10^3/uL (4.3-11.0)
[2019-08-31 10:45] LABS: ALANINE AMINOTRANSFERASE 15 U/L (0-55); ALBUMIN 4.1 GM/DL (3.2-4.5); ALKALINE PHOSPHATASE 112 U/L (40-136); BILIRUBIN,TOTAL 0.4 MG/DL (0.1-1.0); BUN/CREATININE RATIO 13; CARBON DIOXIDE 24 MMOL/L (21-32); CHLORIDE 105 MMOL/L (98-107); CREATININE SERUM 0.76 MG/DL (0.60-1.30); GFR ESTIMATED > 60; GLUCOSE 198 MG/DL (70-105); MAGNESIUM 1.7 MG/DL (1.6-2.4); SODIUM 138 MMOL/L (135-145); TOTAL PROTEIN 6.3 GM/DL (6.4-8.2)
[2019-09-07 13:00] LABS: BASOPHILS % (AUTO) 0 % (0-10); EOSINOPHILS # (AUTO) 0.3 10^3/uL (0.0-0.3); EOSINOPHILS % (AUTO) 8 % (0-10); HEMATOCRIT 34 % (40-54); HEMOGLOBIN 10.6 G/DL (13.3-17.7); LYMPHOCYTES # (AUTO) 0.7 X 10^3 (1.0-4.0); LYMPHOCYTES % (AUTO) 16 % (12-44); MEAN CORPUSCULAR HEMOGLOBIN 31 PG (25-34); MEAN CORPUSCULAR HGB CONC 32 G/DL (32-36); MEAN CORPUSCULAR VOLUME 97 FL (80-99); MEAN PLATELET VOLUME 10.2 FL (7.4-10.4); MONOCYTES # (AUTO) 0.6 X 10^3 (0.0-1.0); MONOCYTES % (AUTO) 14 % (0-12); NEUTROPHILS # (AUTO) 2.5 X 10^3 (1.8-7.8); NEUTROPHILS % (AUTO) 62 % (42-75); PLATELET COUNT 146 10^3/uL (130-400); RED CELL DISTRIBUTION WIDTH 16.3 % (10.0-14.5)
[2019-09-07 13:24] LABS: BUN/CREATININE RATIO 19; CALCIUM 8.4 MG/DL (8.5-10.1); CARBON DIOXIDE 24 MMOL/L (21-32); CHLORIDE 105 MMOL/L (98-107); CREATININE SERUM 0.72 MG/DL (0.60-1.30); GFR ESTIMATED > 60; GLUCOSE 160 MG/DL (70-105); POTASSIUM 3.8 MMOL/L (3.6-5.0); SODIUM 140 MMOL/L (135-145)
[2019-09-14 11:51] LABS: BASOPHILS # (AUTO) 0.1 10^3/uL (0.0-0.1); BASOPHILS % (AUTO) 1 % (0-10); EOSINOPHILS # (AUTO) 0.1 10^3/uL (0.0-0.3); EOSINOPHILS % (AUTO) 1 % (0-10); HEMATOCRIT 38 % (40-54); HEMOGLOBIN 12.1 G/DL (13.3-17.7); LYMPHOCYTES # (AUTO) 0.9 X 10^3 (1.0-4.0); LYMPHOCYTES % (AUTO) 15 % (12-44); MEAN CORPUSCULAR HEMOGLOBIN 31 PG (25-34); MEAN CORPUSCULAR HGB CONC 32 G/DL (32-36); MEAN CORPUSCULAR VOLUME 96 FL (80-99); MEAN PLATELET VOLUME 9.9 FL (7.4-10.4); MONOCYTES # (AUTO) 0.5 X 10^3 (0.0-1.0); MONOCYTES % (AUTO) 8 % (0-12); NEUTROPHILS # (AUTO) 4.7 X 10^3 (1.8-7.8); NEUTROPHILS % (AUTO) 75 % (42-75); PLATELET COUNT 127 10^3/uL (130-400); RED CELL DISTRIBUTION WIDTH 16.2 % (10.0-14.5); WHITE BLOOD COUNT 6.3 10^3/uL (4.3-11.0)
[2019-09-14 12:11] LABS: BUN/CREATININE RATIO 16; CALCIUM 9.3 MG/DL (8.5-10.1); CARBON DIOXIDE 24 MMOL/L (21-32); CHLORIDE 104 MMOL/L (98-107); CREATININE SERUM 0.87 MG/DL (0.60-1.30); GFR ESTIMATED > 60; GLUCOSE 177 MG/DL (70-105); POTASSIUM 5.3 MMOL/L (3.6-5.0); SODIUM 140 MMOL/L (135-145)
[2019-09-21 11:05] LABS: BASOPHILS % (AUTO) 1 % (0-10); EOSINOPHILS # (AUTO) 0.1 10^3/uL (0.0-0.3); EOSINOPHILS % (AUTO) 1 % (0-10); HEMATOCRIT 34 % (40-54); HEMOGLOBIN 11.3 G/DL (13.3-17.7); LYMPHOCYTES % (AUTO) 18 % (12-44); MEAN CORPUSCULAR HEMOGLOBIN 31 PG (25-34); MEAN CORPUSCULAR HGB CONC 33 G/DL (32-36); MEAN CORPUSCULAR VOLUME 95 FL (80-99); MEAN PLATELET VOLUME 8.7 FL (7.4-10.4); MONOCYTES # (AUTO) 0.7 X 10^3 (0.0-1.0); MONOCYTES % (AUTO) 13 % (0-12); NEUTROPHILS # (AUTO) 3.7 X 10^3 (1.8-7.8); NEUTROPHILS % (AUTO) 67 % (42-75); PLATELET COUNT 193 10^3/uL (130-400); RED CELL DISTRIBUTION WIDTH 16.2 % (10.0-14.5); WHITE BLOOD COUNT 5.5 10^3/uL (4.3-11.0)
[2019-09-21 11:27] LABS: ALANINE AMINOTRANSFERASE 17 U/L (0-55); ALBUMIN 4.3 GM/DL (3.2-4.5); ALKALINE PHOSPHATASE 104 U/L (40-136); BILIRUBIN,TOTAL 0.4 MG/DL (0.1-1.0); BUN/CREATININE RATIO 14; CALCIUM 8.8 MG/DL (8.5-10.1); CARBON DIOXIDE 24 MMOL/L (21-32); CHLORIDE 104 MMOL/L (98-107); CREATININE SERUM 0.76 MG/DL (0.60-1.30); GFR ESTIMATED > 60; GLUCOSE 149 MG/DL (70-105); MAGNESIUM 1.7 MG/DL (1.6-2.4); POTASSIUM 4.4 MMOL/L (3.6-5.0); SODIUM 138 MMOL/L (135-145); TOTAL PROTEIN 6.4 GM/DL (6.4-8.2)
[2019-09-28 10:54] LABS: BASOPHILS % (AUTO) 0 % (0-10); EOSINOPHILS # (AUTO) 0.2 10^3/uL (0.0-0.3); EOSINOPHILS % (AUTO) 8 % (0-10); HEMATOCRIT 35 % (40-54); HEMOGLOBIN 11.4 G/DL (13.3-17.7); LYMPHOCYTES # (AUTO) 0.7 X 10^3 (1.0-4.0); LYMPHOCYTES % (AUTO) 22 % (12-44); MEAN CORPUSCULAR HEMOGLOBIN 31 PG (25-34); MEAN CORPUSCULAR HGB CONC 33 G/DL (32-36); MEAN CORPUSCULAR VOLUME 96 FL (80-99); MEAN PLATELET VOLUME 9.4 FL (7.4-10.4); MONOCYTES # (AUTO) 0.4 X 10^3 (0.0-1.0); MONOCYTES % (AUTO) 14 % (0-12); NEUTROPHILS # (AUTO) 1.7 X 10^3 (1.8-7.8); NEUTROPHILS % (AUTO) 56 % (42-75); PLATELET COUNT 129 10^3/uL (130-400); RED CELL DISTRIBUTION WIDTH 15.1 % (10.0-14.5)
[2019-09-28 11:16] LABS: ALANINE AMINOTRANSFERASE 18 U/L (0-55); ALBUMIN 3.9 GM/DL (3.2-4.5); ALKALINE PHOSPHATASE 110 U/L (40-136); BILIRUBIN,TOTAL 0.3 MG/DL (0.1-1.0); BUN/CREATININE RATIO 19; CALCIUM 8.4 MG/DL (8.5-10.1); CARBON DIOXIDE 25 MMOL/L (21-32); CHLORIDE 104 MMOL/L (98-107); GFR ESTIMATED > 60; GLUCOSE 189 MG/DL (70-105); POTASSIUM 4.2 MMOL/L (3.6-5.0); SODIUM 139 MMOL/L (135-145); TOTAL PROTEIN 5.8 GM/DL (6.4-8.2)
[2019-10-05 12:34] LABS: BASOPHILS % (AUTO) 1 % (0-10); EOSINOPHILS # (AUTO) 0.1 10^3/uL (0.0-0.3); EOSINOPHILS % (AUTO) 2 % (0-10); HEMATOCRIT 36 % (40-54); HEMOGLOBIN 11.9 G/DL (13.3-17.7); LYMPHOCYTES # (AUTO) 0.7 X 10^3 (1.0-4.0); LYMPHOCYTES % (AUTO) 11 % (12-44); MEAN CORPUSCULAR HEMOGLOBIN 31 PG (25-34); MEAN CORPUSCULAR HGB CONC 33 G/DL (32-36); MEAN CORPUSCULAR VOLUME 95 FL (80-99); MEAN PLATELET VOLUME 9.4 FL (7.4-10.4); MONOCYTES # (AUTO) 0.5 X 10^3 (0.0-1.0); MONOCYTES % (AUTO) 9 % (0-12); NEUTROPHILS # (AUTO) 4.6 X 10^3 (1.8-7.8); NEUTROPHILS % (AUTO) 78 % (42-75); PLATELET COUNT 128 10^3/uL (130-400); RED CELL DISTRIBUTION WIDTH 14.8 % (10.0-14.5); WHITE BLOOD COUNT 5.9 10^3/uL (4.3-11.0)
[2019-10-05 12:55] LABS: BUN/CREATININE RATIO 20; CALCIUM 9.3 MG/DL (8.5-10.1); CARBON DIOXIDE 21 MMOL/L (21-32); CHLORIDE 105 MMOL/L (98-107); CREATININE SERUM 0.83 MG/DL (0.60-1.30); GFR ESTIMATED > 60; GLUCOSE 198 MG/DL (70-105); SODIUM 137 MMOL/L (135-145)
[2019-10-12 10:17] LABS: BASOPHILS % (AUTO) 1 % (0-10); EOSINOPHILS # (AUTO) 0.1 10^3/uL (0.0-0.3); EOSINOPHILS % (AUTO) 2 % (0-10); HEMATOCRIT 33 % (40-54); HEMOGLOBIN 10.7 G/DL (13.3-17.7); LYMPHOCYTES # (AUTO) 0.9 X 10^3 (1.0-4.0); LYMPHOCYTES % (AUTO) 16 % (12-44); MEAN CORPUSCULAR HEMOGLOBIN 31 PG (25-34); MEAN CORPUSCULAR HGB CONC 33 G/DL (32-36); MEAN CORPUSCULAR VOLUME 96 FL (80-99); MONOCYTES # (AUTO) 0.6 X 10^3 (0.0-1.0); MONOCYTES % (AUTO) 11 % (0-12); NEUTROPHILS % (AUTO) 70 % (42-75); PLATELET COUNT 207 10^3/uL (130-400); RED CELL DISTRIBUTION WIDTH 15.2 % (10.0-14.5); WHITE BLOOD COUNT 5.6 10^3/uL (4.3-11.0)
[2019-10-12 10:37] LABS: ALANINE AMINOTRANSFERASE 15 U/L (0-55); ALKALINE PHOSPHATASE 92 U/L (40-136); BILIRUBIN,TOTAL 0.3 MG/DL (0.1-1.0); BUN/CREATININE RATIO 16; CALCIUM 8.8 MG/DL (8.5-10.1); CARBON DIOXIDE 24 MMOL/L (21-32); CHLORIDE 106 MMOL/L (98-107); CREATININE SERUM 0.76 MG/DL (0.60-1.30); GFR ESTIMATED > 60; GLUCOSE 139 MG/DL (70-105); MAGNESIUM 1.8 MG/DL (1.6-2.4); POTASSIUM 4.5 MMOL/L (3.6-5.0); SODIUM 138 MMOL/L (135-145); TOTAL PROTEIN 6.3 GM/DL (6.4-8.2)
[2019-10-20 11:38] LABS: BASOPHILS % (AUTO) 0 % (0-10); EOSINOPHILS # (AUTO) 0.2 10^3/uL (0.0-0.3); EOSINOPHILS % (AUTO) 7 % (0-10); HEMATOCRIT 34 % (40-54); HEMOGLOBIN 10.9 G/DL (13.3-17.7); LYMPHOCYTES # (AUTO) 0.6 X 10^3 (1.0-4.0); LYMPHOCYTES % (AUTO) 21 % (12-44); MEAN CORPUSCULAR HEMOGLOBIN 32 PG (25-34); MEAN CORPUSCULAR HGB CONC 32 G/DL (32-36); MEAN CORPUSCULAR VOLUME 99 FL (80-99); MEAN PLATELET VOLUME 9.3 FL (7.4-10.4); MONOCYTES # (AUTO) 0.8 X 10^3 (0.0-1.0); MONOCYTES % (AUTO) 26 % (0-12); NEUTROPHILS # (AUTO) 1.4 X 10^3 (1.8-7.8); NEUTROPHILS % (AUTO) 45 % (42-75); PLATELET COUNT 154 10^3/uL (130-400); RED CELL DISTRIBUTION WIDTH 15.7 % (10.0-14.5)
[2019-10-20 11:57] LABS: BUN/CREATININE RATIO 14; CALCIUM 8.4 MG/DL (8.5-10.1); CARBON DIOXIDE 30 MMOL/L (21-32); CHLORIDE 100 MMOL/L (98-107); GFR ESTIMATED > 60; GLUCOSE 126 MG/DL (70-105); POTASSIUM 4.5 MMOL/L (3.6-5.0); SODIUM 137 MMOL/L (135-145)
[2019-10-27 10:42] LABS: BASOPHILS # (AUTO) 0.1 10^3/uL (0.0-0.1); BASOPHILS % (AUTO) 1 % (0-10); EOSINOPHILS # (AUTO) 0.1 10^3/uL (0.0-0.3); EOSINOPHILS % (AUTO) 2 % (0-10); HEMATOCRIT 35 % (40-54); HEMOGLOBIN 11.5 G/DL (13.3-17.7); LYMPHOCYTES # (AUTO) 0.7 X 10^3 (1.0-4.0); LYMPHOCYTES % (AUTO) 12 % (12-44); MEAN CORPUSCULAR HEMOGLOBIN 31 PG (25-34); MEAN CORPUSCULAR HGB CONC 33 G/DL (32-36); MEAN CORPUSCULAR VOLUME 96 FL (80-99); MEAN PLATELET VOLUME 9.6 FL (7.4-10.4); MONOCYTES # (AUTO) 0.6 X 10^3 (0.0-1.0); MONOCYTES % (AUTO) 10 % (0-12); NEUTROPHILS # (AUTO) 4.3 X 10^3 (1.8-7.8); NEUTROPHILS % (AUTO) 76 % (42-75); PLATELET COUNT 132 10^3/uL (130-400); RED CELL DISTRIBUTION WIDTH 14.6 % (10.0-14.5); WHITE BLOOD COUNT 5.6 10^3/uL (4.3-11.0)
[2019-10-27 11:00] LABS: BUN/CREATININE RATIO 18; CALCIUM 9.3 MG/DL (8.5-10.1); CARBON DIOXIDE 24 MMOL/L (21-32); CHLORIDE 101 MMOL/L (98-107); CREATININE SERUM 0.74 MG/DL (0.60-1.30); GFR ESTIMATED > 60; GLUCOSE 164 MG/DL (70-105); POTASSIUM 4.6 MMOL/L (3.6-5.0); SODIUM 135 MMOL/L (135-145)
[~2019-11-02 10:09] MED LIST changes: +ACETAMINOPHEN 325 MG TAB (TYLENOL) CANCER CTR PO PRN; +CYCLOPHOSPHAMIDE INJECTION 1,000 MG, CYCLOPHOSPHAMIDE INJECTION 500 MG in NS (IVPB) CAN... IV SCH; +DILT-28 PO; -DILT180C90 PO; +ETOPOSIDE 100 MG in NORMAL SALINE (CANCER CENTER) 500 ML IV SCH; +FOSAPREPITANT DIMEGLUMINE 150 MG in NS (IVPB) CANCER CENTER ONLY 150 ML IV SCH; +METF500T19 PO; -METF500T8 PO; -METO-370 PO; +METO50TA7 PO; +NS IV 1000 ML (CANCER CTR) IV SCH; +NS IV 500 ML (CANCER CENTER) IV SCH; +ONDA-105 PO; -ONDA4TAB10 PO; +ONDANSETRON MDV (CANCER CENTER 16 MG, DEXAMETHASONE INJECTION 10 MG in NS (IVPB) CANCER... IV SCH; +PALONOSETRON HCL 0.25 MG, DEXAMETHASONE INJECTION 10 MG in NS (IVPB) CANCER CENTER 50 ML IV SCH; +PEGFILGRASTIM 6 MG/0.6 ML ONPRO KIT SQ SCH; +PEGFILGRASTIM 6 MG/0.6ML NEULASTA SC SCH; -TRAM50TA2; -TRAM50TA2 PO; +TRM50T; +TRM50T PO; +diphenhydrAMINE 25 MG TAB (BENADRYL) CANCER CENTER PO SCH; +riTUXimab 500 MG, riTUXimab FOR IV INJ CONC 300 MG in NS (IVPB) CANCER CENTER 186 ML IV SCH; +vinCRIStine SULFATE 2 MG in NS (IVPB) CANCER CENTER 50 ML IV SCH
== END 2019-11-29 | disposition home or self-care (01) ==
LOC: ONC 10:09
PROVIDERS: ATTEND Internal Medicine Hematology & Oncology
DX: Z51.11 Encounter for antineoplastic chemotherapy (principal); C85.18 Unspecified B-cell lymphoma, lymph nodes of multiple sites; I25.10 Atherosclerotic heart disease of native coronary artery without angina pectoris; I25.2 Old myocardial infarction; Z86.711 Personal history of pulmonary embolism; Z79.01 Long term (current) use of anticoagulants; Z79.82 Long term (current) use of aspirin; Z79.02 Long term (current) use of antithrombotics/antiplatelets; Z95.5 Presence of coronary angioplasty implant and graft; Z98.1 Arthrodesis status; R73.9 Hyperglycemia, unspecified; Z98.890 Other specified postprocedural states
CPT/HCPCS: 36591; 80048; 80053; 83615; 83735; 85025; 96367; 96372; 96375; 96411; 96413; 96417; 99213; J9312

== ENCOUNTER → 2019-11-17 | Outpatient (CLI) | payer OTHER ==
[~2019-11-17] MED LIST changes: -ACETAMINOPHEN 325 MG TAB (TYLENOL) CANCER CTR PO PRN; -CYCLOPHOSPHAMIDE INJECTION 1,000 MG, CYCLOPHOSPHAMIDE INJECTION 500 MG in NS (IVPB) CAN... IV SCH; -ETOPOSIDE 100 MG in NORMAL SALINE (CANCER CENTER) 500 ML IV SCH; -FOSAPREPITANT DIMEGLUMINE 150 MG in NS (IVPB) CANCER CENTER ONLY 150 ML IV SCH; -NS IV 1000 ML (CANCER CTR) IV SCH; -NS IV 500 ML (CANCER CENTER) IV SCH; -ONDANSETRON MDV (CANCER CENTER 16 MG, DEXAMETHASONE INJECTION 10 MG in NS (IVPB) CANCER... IV SCH; -PALONOSETRON HCL 0.25 MG, DEXAMETHASONE INJECTION 10 MG in NS (IVPB) CANCER CENTER 50 ML IV SCH; -PEGFILGRASTIM 6 MG/0.6 ML ONPRO KIT SQ SCH; -PEGFILGRASTIM 6 MG/0.6ML NEULASTA SC SCH; -diphenhydrAMINE 25 MG TAB (BENADRYL) CANCER CENTER PO SCH; -riTUXimab 500 MG, riTUXimab FOR IV INJ CONC 300 MG in NS (IVPB) CANCER CENTER 186 ML IV SCH; -vinCRIStine SULFATE 2 MG in NS (IVPB) CANCER CENTER 50 ML IV SCH
--- NOTE | 2019-11-17 10:14 | Diagnostic Imaging Report ---
INDICATION: Screening for osteoporosis. COMPARISON: None. FINDINGS: The bone mineral density of the hips was measured. The spine was not evaluated as the patient has had prior back surgery. The total T score for each hip is -0.9. These values do fall within the range of normal. The T score for the right femoral neck is -1.0 and this is also at the lowest end of normal. However the T score for the left femoral neck is -1.3. This does indicate osteopenia. AP Spine L1-L4: [BMD (g/cm2): NA] [T-Score: NA] [Z-Score: NA] [BMD Previous: NA] [BMD % Change: NA] LT Hip Neck: [BMD (g/cm2): 0.895] [T-Score: -1.3] [Z-Score: -0.8] LT Hip Total: [BMD (g/cm2):0.966] [T-Score:-0.9] [Z-Score: -0.8] [BMD Previous: NA] [BMD % Change: NA] RT Hip Neck: [BMD (g/cm2):0.939] [T-Score:-1.0] [Z-Score:-0.5] RT Hip Total: [BMD (g/cm2):0.973] [T-score:-0.9] [Z-Score:-0.8] [BMD Previous:NA] [BMD % Change:NA] *Indicates significant change from prior examination based on 95% confidence level. World Health Organization criteria for BMD interpretation classify patients as Normal (T-score at or above -1.0), Osteopenic (T-score between -1.0 and -2.5) or Osteoporotic (T-score at or below -2.5). LIMITATIONS AND MODIFICATION: None. FRACTURE RISK (FRAX SCORE): The ten year probability of (%): Major Osteoporotic Fracture: [NA] Hip Fracture: [NA] IMPRESSION: 1. The bone mineral density of the hips and the right femoral neck is within normal limits but there is osteopenia of the left femoral neck. 2. The bone mineral density of the spine could not be performed as the patient has had prior back surgery. 3. See below National Osteoporosis Foundation guidelines on when to potentially initiate pharmacologic therapy. Based on the National Osteoporosis Foundation Guidelines, pharmacologic treatment should be initiated in any of the following, unless clinical conditions suggest otherwise: * Any patient with prior fragility fracture of the hip or vertebrae. A spine fracture indicates 5X risk for subsequent spine fracture and 2X risk for subsequent hip fracture. * Osteoporosis (T-score <-2.5). * Postmenopausal women and men age 50 and older with low bone mass/osteopenia (T-score between -1.0 and -2.5) by DXA and 10-year major osteoporotic fracture greater than 20% or a 10-year probability of hip fracture greater than 3%. These fracture risks are supplied above in the FRAX score, if applicable. * Clinician judgement and/or patient preferences may indicate treatment for people with 10-year fracture probabilities above or below these levels. Dictated by: Dictated on workstation # [id number]
== END ==
LOC: RAD 08:54
PROVIDERS: ATTEND Internal Medicine Hematology & Oncology
DX: Z13.820 Encounter for screening for osteoporosis (principal); C83.90 Non-follicular (diffuse) lymphoma, unspecified, unspecified site; M85.80 Other specified disorders of bone density and structure, unspecified site; Z87.81 Personal history of (healed) traumatic fracture
CPT/HCPCS: 77080

== ENCOUNTER → 2019-12-04 | Outpatient (CLI) | payer OTHER ==
[~2019-12-04] MED LIST changes: +ACYC400T PO; +AMIO200T4 PO; +ATOR40TA70 PO; +FENT1PAT10 TD; +GABA-488 PO; +ONDA4TAB11 PO; +SACU1TAB2 PO; +SPIR25TA5 PO; +TMSL.4C PO; +ZOLP10TA PO
--- NOTE | 2019-12-04 11:44 | Diagnostic Imaging Report ---
PROCEDURE: US Renal Bilateral. TECHNIQUE: Multiple real-time grayscale images were obtained over the kidneys in various projections bilaterally. INDICATION: Decreased renal function. FINDINGS: Right kidney measures 12.3 x 5.5 x 6.3 cm. Left kidney measures 12 x 4.5 x 5.2 cm. Renal cortex is well-preserved. There is no hydronephrosis. No calculi or masses. The bladder is well-distended with bilateral ureteral jets. Bladder wall is smooth. IMPRESSION: Normal bilateral renal and bladder ultrasound with no evidence of obstructive uropathy. Dictated by: Dictated on workstation # [id number]
== END ==
LOC: RAD 11:03
PROVIDERS: ATTEND Nurse Practitioner Adult Health
DX: N28.9 Disorder of kidney and ureter, unspecified (principal)
CPT/HCPCS: 76770

== ENCOUNTER 2019-12-07 03:25 | Observation (INO) | payer OTHER ==
[~2019-12-07] VITALS: Ht 188 cm; Wt 100.5 kg
[~2019-12-07 03:25] MED LIST changes: -ACYC400T PO; -AMIO200T4 PO; -ATOR40TA70 PO; -FENT1PAT10 TD; -GABA-488 PO; -ONDA4TAB11 PO; -SACU1TAB2 PO; -SPIR25TA5 PO; -TMSL.4C PO; -ZOLP10TA PO
[2019-12-07] MEDS ORDERED: NS IV 500 ML 500 ML IV ONE (03:37)
[2019-12-07 03:45] LABS: BASOPHILS % (AUTO) 0 % (0-10); EOSINOPHILS % (AUTO) 10 % (0-10); HEMATOCRIT 28 % (40-54); HEMOGLOBIN 9.4 G/DL (13.3-17.7); LYMPHOCYTES # (AUTO) 0.1 X 10^3 (1.0-4.0); LYMPHOCYTES % (AUTO) 67 % (12-44); MEAN CORPUSCULAR HEMOGLOBIN 31 PG (25-34); MEAN CORPUSCULAR HGB CONC 34 G/DL (32-36); MEAN CORPUSCULAR VOLUME 92 FL (80-99); MEAN PLATELET VOLUME 12.3 FL (7.4-10.4); MONOCYTES # (AUTO) 0.1 X 10^3 (0.0-1.0); MONOCYTES % (AUTO) 24 % (0-12); NEUTROPHILS % (AUTO) 0 % (42-75); RED CELL DISTRIBUTION WIDTH 12.8 % (10.0-14.5)
[2019-12-07] MEDS ORDERED: BENZTROPINE 2 MG/2 ML INJ (COGENTIN) AMP IV ONE (03:45)
[2019-12-07 03:47] LABS: BILIRUBIN,URINE NEGATIVE (NEGATIVE); CLARITY,URINE CLEAR; COLOR,URINE YELLOW; GLUCOSE, URINE (UA) NEGATIVE (NEGATIVE); KETONES,URINE NEGATIVE (NEGATIVE); LEUKOCYTE ESTERASE ,URINE NEGATIVE (NEGATIVE); NITRITE,URINE NEGATIVE (NEGATIVE); PROTEIN,URINE TRACE (NEGATIVE)
[2019-12-07 03:47] LABS: PLATELET COUNT 11 10^3/uL (130-400); WHITE BLOOD COUNT 0.2 10^3/uL (4.3-11.0)
--- NOTE | 2019-12-07 03:47 | ED Neurological Problem ---
General Chief Complaint: General Problems/Pain Stated Complaint: JERKING X 3 DAYS Nursing Triage Note: PATIENT STATES HAS BEEN SHAKEY X3 DAYS Nursing Sepsis Screen: No Definite Risk Source: patient Exam Limitations: no limitations History of Present Illness Date Seen by Provider: Dec 07, 2019 Time Seen by Provider: 03:25 Initial Comments Patient presents to ER from home by private conveyance with his and chief complaint for the past 3 days he's been having episodic, progressively worsening shaking all over disorder. He does not have a history of epilepsy. He does not take any antipsychotics, antidepressants etc. Episode once more about a year before and had given a injection of medications to make it go away. No history of RLS. He does not smoke drink or use drugs. He does have a history of diffuse large B-cell lymphoma, A. fib, CAD, stents, CHF, hypertension, hyperlipidemia, gout, cancer related pain treated by Dr. Jiang on a fentanyl patch 75 g and oxycodone's. Uses furosemide and spironolactone which she is holding over the weekend because on Saturday he had some poor kidney function on lab done. He follows with Dr. Martinez and was recently started on Saturday on tamsulosin. He denies a history of Parkinsons. He has chronic back pain related to the cancer for which she uses the fentanyl patch and Percocet. He rates it as a 6 out of 10 presently. Last dose of Percocet was yesterday. Allergies and Home Medications Allergies Coded Allergies: No Known Drug Allergies (Unverified , 07/25/15) Home Medications Acetaminophen 500 Mg Tablet, 500-1,000 MG PO Q4H PRN for PAIN-MILD, (Reported) Allopurinol 300 Mg Tablet, 300 MG PO DAILY, (Reported) Apixaban 5 Mg Tablet, 5 MG PO BID Prescribed by: SHELTON HOU on 05/18/19 113 Aspirin 81 Mg Tablet.dr, 81 MG PO DAILY Prescribed by: SHELTON HOU on 05/18/19 113 Atorvastatin Calcium 10 Mg Tablet, 10 MG PO HS, (Reported) Clopidogrel Bisulfate 75 Mg Tablet, 75 MG PO DAILY Prescribed by: SHELTON HOU on 05/18/19 113 Cyclobenzaprine HCl 10 Mg Tablet, 10 MG PO TID PRN for MUSCLE SPASMS, (Reported) Dexamethasone 4 Mg Tablet, 20 MG PO DAILY, (Reported) TAKES 5 (4MG) TABLETS Diltiazem HCl 180 Mg Cap.er.24h, 180 MG PO DAILY Prescribed by: SHELTON HOU on 05/18/19 1135 Fentanyl 1 Each Patch.td72, 25 MCG TD Q72H, (Reported) Gabapentin 400 Mg Capsule, 400 MG PO BID, (Reported) Metformin HCl 500 Mg Tab.er.24h, 500 MG PO BID, (Reported) Metoprolol Succinate 50 Mg Tab.er.24h, 50 MG PO TID, (Reported) Multivitamin 1 Each Tablet, 1 TAB PO DAILY, (Reported) Ondansetron HCl 4 Mg Tablet, 4 MG PO TID PRN for NAUSEA/VOMITING-1ST LINE, (Reported) Oxycodone HCl 5 Mg Tablet, 5-10 MG PO Q3HR PRN for PAIN-MODERATE, (Reported) take 1-2 5mg tabs Pantoprazole Sodium 40 Mg Tablet.dr, 40 MG PO DAILY, (Reported) Tramadol HCl 50 Mg Tablet, 50 MG PO Q6H PRN for PAIN-MILD, (Reported) Zolpidem Tartrate 10 Mg Tablet, 10 MG PO HS, (Reported) Patient Home Medication List Home Medication List Reviewed: Yes Review of Systems Review of Systems Constitutional: No chills, No diaphoresis Eyes: Denies Blindness, Denies Drainage Ears, Nose, Mouth, Throat: denies ear pain, denies ear discharge Respiratory: No cough, No phlegm Cardiovascular: No chest pain, No palpitations Gastrointestinal: No abdominal pain, No constipation, No diarrhea, No nausea Genitourinary: No discharge, No dysuria Musculoskeletal: see HPI, back pain; No joint pain Skin: No pruritus, No rash Psychiatric/Neurological: Denies Anxiety, Denies Depressed All Other Systems Reviewed Negative Unless Noted: Yes Past Wpzvhrk-Svbokr-[place] Hx Patient Social History Alcohol Use: Denies Use Recreational Drug Use: No Smoking Status: Never a Smoker Former Smoker, Quit: Jul 17, 2015 2nd Hand Smoke Exposure: No Recent Foreign Travel: No Contact w/Someone Who Travel: No Recent Infectious Disease Expo: No Recent Hopitalizations: Yes (back sx 04/26/19) Physical Abuse: No Sexual Abuse: No Mistreated: No Fear: No Immunizations Up To Date Tetanus Booster (TDap): Less than 5yrs Date of Influenza Vaccine: Jun 16, 2019 Seasonal Allergies Seasonal Allergies: Yes Past Medical History Surgeries: Yes (back sx; RIGHT PORT PLACEMENT) Coronary Stent, Orthopedic Respiratory: No Pulmonary Embolism Cardiac: Yes Atrial Fibrillation, High Cholesterol, Hypertension, Irregular Heartbeat Neurological: Yes Neuropathy Reproductive Disorders: No Genitourinary: No Gastrointestinal: Yes (HEPATITIS C) Hepatitis Musculoskeletal: Yes Arthritis, Chronic Back Pain Endocrine: Yes Diabetes, Non-Insulin dep HEENT: No Cancer: Yes (DIFFUSE LARGE B CELL LYMPHOMA) Lymphoma What Type of Treatment Did You: Chemotherapy Psychosocial: No Integumentary: No Blood Disorders: No Family Medical History CAD Under 55 Years Old, Hypertension Physical Exam Vital Signs Vital Signs - First Documented 12/07/19 03:34 Temp 37.0 Pulse 89 Resp 20 B/P (MAP) 108/64 (79) Pulse Ox 95 O2 Delivery Room Air Capillary Refill : Less Than 3 Seconds Height, Weight, BMI Height: 6'1.00" Weight: 195lbs. 5.0oz. [id number]; 28.00 BMI Method:Actual General Appearance: WD/WN, mild distress HEENT: PERRL/EOMI, normal ENT inspection Neck: full range of motion, normal inspection Respiratory: lungs clear, normal breath sounds, no respiratory distress, no accessory muscle use Cardiovascular: normal peripheral pulses, regular rate, rhythm, no edema Peripheral Pulses: 2+ Radial Pulses (R), 2+ Radial Pulses (L) Gastrointestinal: normal bowel sounds, non tender, soft Extremities: normal inspection, normal capillary refill Neurologic/Psychiatric: alert, normal mood/affect, oriented x 3 Crainal Nerves: normal hearing, normal speech, PERRL Motor/Sensory: no motor deficit, no sensory deficit, other (all over her jerking motion of the body, dyskinesia) Skin: normal color, warm/dry Procedures/Interventions Suture Size: 5-0 Progress/Results/Core Measures Results/Orders Lab Results Laboratory Tests Test 12/07/19 03:30 12/07/19 03:40 Range/Units White Blood Count 0.2 *L 4.3-11.0 10^3/uL Red Blood Count 3.04 L 4.35-5.85 10^6/uL Hemoglobin 9.4 L 13.3-17.7 G/DL Hematocrit 28 L 40-54 % Mean Corpuscular Volume 92 80-99 FL Mean Corpuscular Hemoglobin 31 25-34 PG Mean Corpuscular Hemoglobin Concent 34 32-36 G/DL Red Cell Distribution Width 12.8 10.0-14.5 % Platelet Count 11 *L 130-400 10^3/uL Mean Platelet Volume 12.3 H 7.4-10.4 FL Neutrophils (%) (Auto) 0 L 42-75 % Lymphocytes (%) (Auto) 67 H 12-44 % Monocytes (%) (Auto) 24 H 0-12 % Eosinophils (%) (Auto) 10 0-10 % Basophils (%) (Auto) 0 0-10 % Neutrophils # (Auto) 0.0 L 1.8-7.8 X 10^3 Lymphocytes # (Auto) 0.1 L 1.0-4.0 X 10^3 Monocytes # (Auto) 0.1 0.0-1.0 X 10^3 Eosinophils # (Auto) 0.0 0.0-0.3 10^3/uL Basophils # (Auto) 0.0 0.0-0.1 10^3/uL Sodium Level 135 135-145 MMOL/L Potassium Level 4.7 3.6-5.0 MMOL/L Chloride Level 101 98-107 MMOL/L Carbon Dioxide Level 18 L 21-32 MMOL/L Anion Gap 16 H 5-14 MMOL/L Blood Urea Nitrogen 83 H 7-18 MG/DL Creatinine 5.54 #H 0.60-1.30 MG/DL Estimat Glomerular Filtration Rate 11 BUN/Creatinine Ratio 15 Glucose Level 134 H 70-105 MG/DL Calcium Level 8.0 L 8.5-10.1 MG/DL Corrected Calcium 8.2 L 8.5-10.1 MG/DL Total Bilirubin 0.4 0.1-1.0 MG/DL Aspartate Amino Transf (AST/SGOT) 26 5-34 U/L Alanine Aminotransferase (ALT/SGPT) 16 0-55 U/L Alkaline Phosphatase 75 40-136 U/L C-Reactive Protein High Sensitivity 18.69 H 0.00-0.50 MG/DL B-Type Natriuretic Peptide 93.1 <100.0 PG/ML Total Protein 6.1 L 6.4-8.2 GM/DL Albumin 3.7 3.2-4.5 GM/DL Urine Color YELLOW Urine Clarity CLEAR Urine pH 6.0 5-9 Urine Specific Jackson 1.020 1.016-1.022 Urine Protein TRACE H NEGATIVE Urine Glucose (UA) NEGATIVE NEGATIVE Urine Ketones NEGATIVE NEGATIVE Urine Nitrite NEGATIVE NEGATIVE Urine Bilirubin NEGATIVE NEGATIVE Urine Urobilinogen 0.2 < = 1.0 MG/DL Urine Leukocyte Esterase NEGATIVE NEGATIVE Urine RBC (Auto) 3+ H NEGATIVE Urine RBC 10-25 H /HPF Urine WBC NONE /HPF Urine Squamous Epithelial Cells RARE /HPF Urine Crystals NONE /LPF Urine Bacteria NEGATIVE /HPF Urine Casts NONE /LPF Urine Mucus SMALL H /LPF Urine Culture Indicated NO My Orders Orders - COBY SAVAGE Ed Iv/Invasive Line Start (12/07/19 03:37) Ns Iv 500 Ml (Sodium Chloride 0.9%) (12/07/19 03:37) Cbc With Automated Diff (12/07/19 03:37) Comprehensive Metabolic Panel (12/07/19 03:37) Hs C Reactive Protein (12/07/19 03:37) Ua Culture If Indicated (12/07/19 03:37) BNP (12/07/19 03:37) Benztropine Injection (Cogentin Injectio (12/07/19 03:45) Oxycodone/Apap 5/325mg Tablet (Percocet (12/07/19 04:00) Ed Iv/Invasive Line Start (12/07/19 04:18) Ns Iv 1000 Ml (Sodium Chloride 0.9%) (12/07/19 04:18) Fentanyl Injection (Sublimaze Injection (12/07/19 04:30) Lorazepam Injection (Ativan Injection) (12/07/19 04:30) Medications Given in ED Current Medications Medications Dose Ordered Sig/Ciarra Route Start Time Stop Time Status Last Admin Dose Admin Benztropine Mesylate 2 mg ONCE ONCE IV 12/07/19 03:45 12/07/19 03:46 DC 12/07/19 03:43 2 MG Oxycodone/ Acetaminophen 1 tab ONCE ONCE PO 12/07/19 04:00 12/07/19 04:01 DC 12/07/19 03:56 1 TAB Sodium Chloride 500 ml @ 0 mls/hr Q0M ONCE IV 12/07/19 03:37 12/07/19 03:40 DC 12/07/19 03:43 0 MLS/HR Vital Signs/I&O 12/07/19 03:34 Temp 37.0 Pulse 89 Resp 20 B/P (MAP) 108/64 (79) Pulse Ox 95 O2 Delivery Room Air Blood Pressure Mean: 79 Progress Progress Note : Time: 03:54 Progress Note Suspected dystonic reaction. Unclear what's causing an however he's had these before so this could be a recurrence of his symptoms. Plan to give him Cogentin. Since he's having some increasing pain we'll give him a dose of Percocet, 5 mg but he typically takes. Plan to check some basic labs to make sure his kidney function is okay since they are holding his prolactin and Lasix over the weekend. Given 500 cc of fluid as his tongue is dry and he clinically appears dry. We'll check a BNP. Departure Communication (Admissions) Time/Spoke to Admitting Phy: 04:25 Dr. Carter Landis agrees to observe the patient on some rehydration using lactated Ringer's. Impression Primary Impression: Dehydration Additional Impressions: Acute kidney injury Dystonia Diffuse large B cell lymphoma Qualified Codes: C83.30 - Diffuse large B-cell lymphoma, unspecified site Disposition: 01 HOME, SELF-CARE Condition: Stable Admissions Decision to Admit Reason: Admit from ER (General) Decision to Admit/Date: Dec 07, 2019 Time/Decision to Admit Time: 04:20 Departure-Patient Inst. Referrals: HEBER MARTINEZ DO (PCP/Family) Primary Care Physician COBY SAVAGE Dec 07, 2019 03:47
[2019-12-07 04:00] LABS: BACTERIA,URINE NEGATIVE /HPF; SQUAMOUS EPITHELIAL CELL,UR RARE /HPF
[2019-12-07] MEDS ORDERED: oxyCODONE/APAP 5/325MG (PERCOCET 5) TABLET PO ONE (04:00)
[2019-12-07 04:08] LABS: ALBUMIN 3.7 GM/DL (3.2-4.5); BILIRUBIN,TOTAL 0.4 MG/DL (0.1-1.0); CREATININE SERUM 5.54 MG/DL (0.60-1.30); POTASSIUM 4.7 MMOL/L (3.6-5.0); TOTAL PROTEIN 6.1 GM/DL (6.4-8.2)
[2019-12-07] MEDS ORDERED: NS IV 1000 ML 1,000 ML IV ONE (04:18)
[2019-12-07] MEDS ORDERED: LORazepam INJ 2 MG/ML (ATIVAN) VIAL IVP ONE (04:30)
[2019-12-07] MEDS ORDERED: fentaNYL INJECTION 100 MCG/2 ML AMP IVP ONE (04:30)
--- OUTSIDE RECORDS SUMMARY | 2019-12-07 04:59 | XMS REPORT | Clinical Summary ---
Author Author [facility] Organization [facility] Address Unknown Phone Unavailable Care Team Providers Care Operational Intelligence Analyst Name Role Phone Bertin Cole PCP Madison [place] [id number] Shira Castanon MD 100 Source Comments Some departments are not documenting in the electronic medical record. If you d o not see the information that you expected, contact Release of Information in [facility] Particle Information Management department at [phone] for further assistan ce in locating additional records.[facility] Allergies No Known Allergies Medications End Date Status Medication Sig Dispensed Refills Start Date Active metFORMIN (GLUCOPHAGE) Take 500 mg 0 500 mg tablet by mouth twice daily with meals. Active cyclobenzaprine Take 10 mg by 0 (FLEXERIL) 10 mg tablet mouth three times daily as needed. Active Multivitamins with Take 1 tablet 0 Fluoride (MULTI-VITAMIN by mouth PO) daily. Active acetaminophen (TYLENOL) Take two 30 tablet 0 325 mg tablet tablets by 9 mouth every 6 hours as needed. Max dose of 4000 mg daily Active allopurinol (ZYLOPRIM) Take one 90 tablet 3 300 mg tablet tablet by 9 mouth daily. Take with food. Active senna/docusate Take one 60 tablet 0 (SENOKOT-S) 8.6/50 mg tablet by 9 tablet mouth twice daily. Active clopiDOGrel (PLAVIX) 75 Take 75 mg by 0 mg tablet mouth daily. Active gabapentin (NEURONTIN) Take 300 mg 0 300 mg capsule by mouth every 8 hours. Active atorvastatin (LIPITOR) 40 Take one 90 tablet 3 09/10/201 mg tablet tablet by 9 mouth daily. Active metoprolol XL (TOPROL XL) Take three 90 tablet 1 50 mg extended release tablets by 9 tablet mouth daily. Active spironolactone Take one 30 tablet 1 (ALDACTONE) 25 mg tablet tablet by 9 mouth daily. Take with food. Active pantoprazole DR Take one 90 tablet 1 (PROTONIX) 40 mg tablet tablet by 9 mouth daily. Active sacubitriL-valsartan Take 1 tablet 0 (ENTRESTO) 24-26 mg by mouth tablet twice daily. Active nitroglycerin (NITROSTAT) Place 0.4 mg 0 0.4 mg tablet under tongue every 5 minutes as needed for Chest Pain. Max of 3 tablets, call 911. Active melatonin 5 mg tab Take one 30 tablet 0 11/13/2 02 tablet by 0 mouth at bedtime as needed. Active fentaNYL (DURAGESIC) 75 Apply one 3 patch 0 mcg/hr patch patch to top 0 of skin as directed every 72 hours Active oxyCODONE (ROXICODONE) 5 Take one 20 tablet 0 0 mg tablet tablet to two 0 tablets by mouth every 3 hours as needed Active furosemide (LASIX) 20 mg Take one 90 tablet 0 0 tablet tablet by 0 mouth every morning. Active amiodarone (CORDARONE) Take one 30 tablet 1 200 mg tablet tablet daily. 0 Active prednisolone acetate Apply two 0 (PRED FORTE) 1 % drops to both 0 ophthalmic eyes every 6 suspensionIndications: hours. Diffuse large B-cell Continue eye lymphoma, unspecified drops until body region (HCC) 11/30. Active trimethoprim/sulfamethoxa Take one 16 tablet 1 zole (BACTRIM DS) 160/800 tablet by 0 mg tablet mouth twice daily twice weekly. Take on Saturday and . Active acyclovir (ZOVIRAX) 800 Take one 60 tablet 1 mg tablet tablet by 0 mouth every 12 hours. Active fluconazole (DIFLUCAN) Take two 20 tablet 1 200 mg tablet tablets by 0 mouth daily. To be started when ANC < 500 (Do not start at discharge). Continue until ANC > 500. Active levoFLOXacin (LEVAQUIN) Take one 10 tablet 1 750 mg tablet tablet by 0 mouth daily. To be started when ANC < 500 (Do not start at discharge). Continue until ANC > 500. Active dexAMETHasone (DECADRON) Take ten 10 tablet 0 0 4 mg tabletIndications: tablets by 0 Diffuse large B-cell mouth daily. lymphoma, unspecified Take on 11/28 body region (HCC) to complete course Active apixaban (ELIQUIS) 5 mg Take one 60 tablet 0 tabletIndications: tablet by 0 pulmonary thromboembolism mouth twice daily. Hold when platelets are less than [address] Indications: a clot in the lung 11/25/2019 Discontinued (Removed from P [facility] Med List) docusate (COLACE) 100 mg Take one 180 capsule 3 0 capsule capsule by 9 mouth twice daily. 11/25/2019 Discontinued (Removed from P [facility] Med List) polyethylene glycol 3350 Take one 12 each 0 0 (MIRALAX) 17 g packet by 9 packetIndications: mouth twice constipation daily. Indications: constipation 11/11/2019 Discontinued (Removed from P [facility] Med List) melatonin 5 mg tab Take one 30 tablet 0 01 tablet by 9 mouth at bedtime as needed. 11/25/2019 Discontinued (Removed from P [facility] Med List) ondansetron (ZOFRAN) 4 mg Take one 15 tablet 0 tablet tablet by 9 mouth every 8 hours as needed for Nausea. 11/13/2019 Discontinued (Reorder) apixaban (ELIQUIS) 5 mg Take 5 mg by 0 tablet mouth twice daily. 11/12/2019 Discontinued (Patient's Monreal ce) zolpidem (AMBIEN) 10 mg Take 10 mg by 0 tablet mouth at bedtime as needed for Sleep. 11/11/2019 Discontinued (Removed from P TA Med List) losartan (COZAAR) 25 mg Take one 30 tablet 1 tablet tablet by 9 mouth daily. 11/11/2019 Discontinued (Removed from P TA Med List) amiodarone (CORDARONE) Take with 60 tablet 1 200 mg tablet food. 2 tabs 9 twice a day for 5 days. On 06/16 take 2 tabs daily for 7 days. On 06/23 take 1 tab daily and continue 11/13/2019 Discontinued furosemide (LASIX) 40 mg Take one 30 tablet 1 0 tablet tablet by 9 mouth daily. 11/13/2019 Discontinued (Reorder) oxyCODONE (ROXICODONE, Take one 90 tablet 0 OXY-IR) 5 mg tablet tablet to two 9 tablets by mouth every 3 hours as needed 11/11/2019 Discontinued (Removed from P TA Med List) fentaNYL (DURAGESIC) 25 Apply one 10 patch 0 mcg/hr patch patch to top 9 of skin as directed every 72 hours 11/11/2019 Discontinued (Removed from P [facility] Med List) traMADol (ULTRAM) 50 mg Take one 30 tablet 0 tablet tablet by 9 mouth every 6 hours as needed for Pain. 11/25/2019 Discontinued (Removed from P TA Med List) prednisone (DELTASONE) 50 Take 50 mg by 0 mg tabletIndications: 2 a mouth daily day for 5 day on chemo with weeks breakfast. Indications: 2 a day for 5 day on chemo weeks 11/25/2019 Discontinued (Removed from P [facility] Med List) acyclovir (ZOVIRAX) 400 Take 400 mg 0 mg tablet by mouth twice daily. 11/25/2019 Discontinued (Removed from P [facility] Med List) insulin aspart U-100 Use as 0 (NOVOLOG FLEXPEN U-100 sliding scale INSULIN) 100 unit/mL (3 during chemo mL) injection PEN cycle as needed. 11/13/2019 Discontinued (Reorder) fentaNYL (DURAGESIC) 75 Apply 1 patch 0 mcg/hr patch to top of skin as directed every 72 hours 11/25/2019 Discontinued (Removed from P TA Med List) naloxegoL (MOVANTIK) 25 Take 25 mg by 0 mg tablet mouth daily. 11/13/2019 Discontinued (Reorder) fentaNYL (DURAGESIC) 75 Apply one 3 patch 0 mcg/hr patch patch to top 0 of skin as directed every 72 hours 11/13/2019 Discontinued (Reorder) furosemide (LASIX) 20 mg Take one 90 tablet 0 0 tablet tablet by 0 mouth every morning. 11/13/2019 Discontinued (Reorder) oxyCODONE (ROXICODONE) 5 Take one 20 tablet 0 0 mg tablet tablet to two 0 tablets by mouth every 3 hours as needed 11/13/2019 Discontinued amiodarone (CORDARONE) Take with 60 tablet 1 200 mg tablet food. 2 tabs 0 twice a day for 5 days. On 06/16 take 2 tabs daily for 7 days. On 06/23 take 1 tab daily and continue 11/28/2019 Discontinued (Reorder) apixaban (ELIQUIS) 5 mg Take one 60 tablet 0 tablet tablet by 0 mouth twice daily. Start on Saturday11/15/2019 Active Problems Problem Noted Date DLBCL (diffuse large B cell lymphoma) 06/05/2019 Pulmonary embolus 05/27/2019 Heart failure with reduced ejection fraction 019 Atrial fibrillation 05/25/2019 Moderate malnutrition 04/28/2019 Diffuse large B cell lymphoma 04/24/2019 Last Assessment & Plan: Mr. Tse is a 59 year old male with S tage IV DLBCL, germinal center type with diffuse lytic osseous lesions, ma rked extraosseous spinal mass, compression fractures with impingement of the thoracic spine. C-myc negative. He is s/p laminectomy on 04/26. He has completed pulse dexamethasone x 4 days, one dose of hi gh-dose methotrexate 3.5 grams/m2 on 05/21/19 and two doses of rituximab on 09/03 and 06/04/19. Will be admitted today for second dose of high dose meth otrexate. Blood cell counts show moderate anemia, normal platelet count, moderate leukopenia, and mild neutropenia. He allison s elevated alkaline phosphatase likely secondary to methotrexate. Will continue to monitor. Counts are acceptable to proceed with admission to day. Will plan for re-staging PET following Dose 2 of methotrexate. Plan: 1. Proceed with C2 D1 HD methotrexate 3 .5 grams/m2 IV = 06/05/19. He will receive two more doses of HD MTX follow ing 6 cycles of R-CHOP. 2. Plan for R-CHOP therapy following PE T scan x 6 cycles. 3. He may continue on aspirin 81 mg po once daily during MTX due to need for aggressive anticoagulation. He is n ot on Bactrim, PCNs, or PPI. 4. Plan for weekly Rituxan 375 mg/m2 IV x 2 once he is discharged at [facility] with Dr. Karime pena (approximately on 06/12/19 and 06/19/19). Will change to Rapid Infusion protocol as he has tolerated first two Rituxan infusions well. 5. Re-staging PET following 2 cycles of methtorexate. Plan for PET on 06/16/19. 6. Continue dual anticoagulation for hi story of massive PE with stent placement and atrial fibrillation: Plav ix 75 mg po once daily and Eliquis 5 mg po twice daily. 7. Continue Fentanyl patch 25 mcg/hr ev nella 72 hours and oxycodone 5-10 mg (1-2 tablets) q3h PRN for pain manageme nt. 8. Needs weekly PICC line dressing snow ges, labs and transfusion support to maintain Hgb > 7.0 and Plt > 10 or havi ng active bleeding. Follow-up: RTC with Dr. Garcia on 06/17/19 to review PET results. Patient agreed with plan of care and ve rbalized understanding. Questions and concerns were addressed to patient' s satisfaction. Patient's plan of care was discussed with Dr. Yosef miguel. Jacqui Griffin APRN-[facility] Division of Hematology and Oncology Pager [phone] Lytic bone lesions on xray 03/18/2019 Last Assessment & Plan: 59-year-old male patient with a known h istory of hypertension, diabetes mellitus, GERD, cardiomyopathy, coronar y disease who presents to our clinic for second opinion regarding his extens rae lytic lesions. Patient history dates back when he started complaining of lower back pain and was found to have a compression fracture L1, he had a kyphoplasty but his back pain continued to worsening so he had an ext ensive work-up that he showed multiple lytic lesions. Patient had an extensive work-up including a biopsy of the lumbar spine and L1 that showed polytypic plasma cells. A bone marrow biopsy did not any monoclon al plasma cells. However there was a major concern that the patient has be en on dexamethasone while undergoing a bone marrow biopsy and L1 biopsy. PET scan showed extensive lesions. I had a prolonged discussion with the p atient and after discussion with other colleagues that we will need to h old the dexamethasone for now and reevaluate with restaging in 4 weeks in order to identify the underlying cause of his extensive lytic lesions as there is a possibility if we repeat the test we will have negative results Recommendations: Check CBC with differential, CMP, total immunoglobulin, SPEP, serum free light chain, serum immunofixation, 24-h our UPEP, urine immunofixation, beta-2 microglobulin, LDH Check bone marrow biopsy/aspirate/cytog enetic/FISH/flow cytometry Check CT Neck/Chest/Abdomen/Pelvis Based on these results will discuss if we need to Perform core biopsy or surgical excision of mesenteric lymph n ode Request the pt to hold dexamethasone fo r now RTC in 4 weeks Dyslipidemia 03/18/2019 Last Assessment & Plan: On Lipitor Essential hypertension Last Assessment & Plan: BP 150/96 mmHg DM (diabetes mellitus) Last Assessment & Plan: Pt is on Metformin per PCP Chronic hepatitis C Last Assessment & Plan: History of Chronic hepatitis C per the medical records. Will consider to check Hepatitis CAb and may need Hepati tis C PCR Cardiomyopathy CAD (coronary artery disease) Back pain Resolved Problems Problem Noted Date Resolved Date Admission for chemotherapy 05/20/2019 05/25/2019 Encounters Care Team Description Date Type Specialty Yesica Shah RN 12/04/2019 Documentation Oncology Sharona Roth Md, MBBS On-call 12/03/2019 Telephone Lyn Garcia MD 12/01/2019 Orders Only Oncology Monica Desai MD Singh, Anurag, MD DLBCL (diffuse large B cell lymphoma) (H CC) 11/25/2019 [facility] Hematology and Onco logy - Encounter 11/28/2019 Lyn Garcia MD 11/25/2019 Office Visit Oncology Lyn Garcia MD Diffuse large B-cell lymphoma of lymph n odes of multiple regions (HCC) 11/25/2019 Nurse Only Oncology Lyn Garcia MD Diffuse large B-cell lymphoma of lymph n odes of multiple regions (HCC) (Primary Dx) 11/24/2019 Orders Only Oncology Oleg Moreland DO Diffuse large B cell lymphoma (HCC) 11/11/2019 [facility] Hematology and Onco logy - Encounter 11/13/2019 Lyn Garcia MD Diffuse large B-cell lymphoma of lymph n odes of multiple regions (HCC) (Primary Dx) 11/11/2019 Office Visit Oncology Lyn Garcia MD 11/11/2019 Hospital Radiology Encounter Lyn Garcia MD 10/28/2019 Hospital Radiology Encounter Lyn Garcia MD Diffuse large B-cell lymphoma of lymph n odes of multiple regions (HCC) (Primary Dx) 10/28/2019 Office Visit Oncology Lyn Garcia MD Imaging 10/28/2019 Telephone Oncology Awilda Mccraya 10/28/2019 Documentation Oncology from Last 3 Months Family History Medical History Relation Name Comments Cancer-Pancreas Father Cancer-Lung Mother Relation Name Status Comments Father Mother Social History Date Tobacco Use Types Packs/Day Years Used Quit: 07/26/2015 Former Smoker Smokeless Tobacco: Never Used Drinks/Week oz/Week Comments Alcohol Use 2 Cans of beer 2.0 Yes Sex Assigned at Date Recorded Not on file Industry Job Start Date Occupation Not on file Not on file Not on file Travel End Travel History Travel Start No recent travel history available. Last Filed Vital Signs Reading Time Taken Comments Vital Sign 121/73 11/28/2019 11:06 AM CDT Blood Pressure 65 11/28/2019 11:06 AM CDT Pulse 36.3 C (97.4 F) 11/28/2019 11:06 AM CDT Temperature 16 11/25/2019 8:56 AM CDT Respiratory Rate 98% 11/28/2019 11:06 AM CDT Oxygen Saturation - - Inhaled Oxygen Concentration 102.5 kg (225 lb 15.5 oz) 11/28/2019 4:11 AM CDT Weight 185 cm (6' 0.84") 11/26/2019 1:00 PM CDT Height 29.95 11/26/2019 1:00 PM CDT Body Mass Index Plan of Treatment Health Maintenance Due Date Last Done Comments DTAP/TDAP VACCINES (1 - 1969 Tdap) DILATED EYE EXAM 01/23/1976 FOOT EXAM 01/23/1976 PHYSICAL (COMPREHENSIVE) 01/23/1976 EXAM PNEUMONIA VACCINE (DM) 01/23/1976 COLORECTAL CANCER 01/23/2008 SCREENING SHINGLES RECOMBINANT 01/23/2008 VACCINE (1 of 2) INFLUENZA VACCINE 04/16/2019 HBA1C 11/18/2019 05/20/2019 HIV SCREENING Completed 06/05/2019, 04/25/2019 Goals Goal Patient Associated Recent Progress Patient-Stat Aut hor Goal Type Problems ed? GOAL General No Carmelina Jeffrey, DENNY Note: Back to work GOAL General Yes Selam Kirk RN Note: "To get better and beat this disease" Implants Device Identifier Shelf Expiration Date Model / Serial / L ot Implanted Type Area Manufactur er [id number] / NA / NA [employer] [place] Spinal 45mm 6mm [place] Expedium [employer] [place] N/A: Spine DEPUY Titanium Fix - Sna Lumbar SYNTHES [employer] Implanted: Qty: 4 on 04/26/2019 by Enoch Pandey MD at [facility] 05/16/2021 [id number] / NA / [id number] Graft Bone 23mm 14mm Infuse Small N/A: Spine MED TRONIC Spine Bovine Collagen - Sna Lumbar INC Implanted: Qty: 1 on 04/26/2019 by Enoch Pandey MD at [facility] [id number] / NA / NA [employer] [place] Expedium Spinal N/A: Spine DEPUY Titanium [place] - Sna Lumbar SYNTHES CO Implanted: Qty: 4 on 04/26/2019 by Enoch Pandey MD at [facility] [id number] / NA / NA Washer Spinal 2mm [place] Expedium N/A: Spine DEPU Y Titanium Spacer - Sna Lumbar SYNTHES [employer] Implanted: Qty: 2 on 04/26/2019 by Enoch Pandey MD at [facility] 11/13/2021 [id number] / NA / [id number] Graft Soft Tissue 1x1in Duragen N/A: Spine INTEG RATIO Plus Cranial Dura Bovine - Sna Lumbar NS Implanted: Qty: 1 on 04/26/2019 by Enoch Pandey MD at [facility] 04/26/2020 [id number] / [id number] / [id number] Plate Titanium 1.5 Hole Smooth N/A: Spine DEPUY [place] Expedium Bone Spine - Lumbar SYNTHES C O [id number] Implanted: Qty: 2 on 04/26/2019 by Enoch Pandey MD at [facility] 04/26/2020 [id number] / [id number] / [id number] [place] [id number] Depuy N/A: Spine DEPUY:SPIN Implanted: Qty: 2 on 04/26/2019 by Lumbar E Enoch Pandey MD at [facility] [id number] / NA / NA Washer Spinal [place] Expedium N/A: Spine DEPUY Titanium Polyaxial - Sna Lumbar SYNTHES [employer] Implanted: Qty: 8 on 04/26/2019 by Enoch Pandey MD at [facility] Procedures Comments Procedure Name Priority Date/Time Associated Diag nosis POC GLUCOSE 11/28/2019 8:16 AM CDT HC PHOSPHOROUS, SERUM Routine 11/28/2019 (PO4CT) 4:28 AM CDT HC MAGNESIUM (MGCT) Routine 11/28/2019 4:28 AM CDT HC COMPREHENSIVE Routine 11/28/2019 METABOLIC PANEL (CH12CT) 4:28 AM CDT HC CBC W AUTOMATED DIFF Routine 11/28/2019 (HPDCT) 4:28 AM CDT POC GLUCOSE 11/27/2019 9:25 PM CDT POC GLUCOSE 11/27/2019 5:10 PM CDT POC GLUCOSE 11/27/2019 11:53 AM CDT IR LUMBAR PUNCTURE Routine 11/27/2019 9:49 AM CDT ME FLOW CYTOMETRY INTERPJ 11/27/2019 2-8 MARKERS 9:42 AM CDT CSF TUBE VOLUMES 11/27/2019 9:42 AM CDT LEUKEMIA/LYMPHOMA PANEL Routine 11/27/2019 FLUID/TISSUE 9:42 AM CDT HC GLUCOSE-CSF STAT 11/27/2019 9:42 AM CDT HC TOTAL PROTEIN-CSF STAT 11/27/2019 9:42 AM CDT HC CELL COUNT W/DIFF-CSF STAT 11/27/2019 9:42 AM CDT POC GLUCOSE 11/27/2019 8:31 AM CDT HC NON-ANDROID DEVELOPER/THIN PREP Routine 11/27/2019 8:30 AM CDT HC PHOSPHOROUS, SERUM Routine 11/27/2019 (PO4CT) 5:06 AM CDT HC MAGNESIUM (MGCT) Routine 11/27/2019 5:06 AM CDT HC COMPREHENSIVE Routine 11/27/2019 METABOLIC PANEL (CH12CT) 5:06 AM CDT HC CBC W AUTOMATED DIFF Routine 11/27/2019 (HPDCT) 5:06 AM CDT POC GLUCOSE 11/26/2019 9:31 PM CDT POC GLUCOSE 11/26/2019 6:06 PM CDT 2-D + DOPPLER Routine 11/26/2019 ECHOCARDIOGRAM 1:00 PM CDT POC GLUCOSE 11/26/2019 11:17 AM CDT HC PHOSPHOROUS, SERUM Routine 11/26/2019 (PO4CT) 4:17 AM CDT HC MAGNESIUM (MGCT) Routine 11/26/2019 4:17 AM CDT HC COMPREHENSIVE Routine 11/26/2019 METABOLIC PANEL (CH12CT) 4:17 AM CDT HC CBC W AUTOMATED DIFF Routine 11/26/2019 (HPDCT) 4:17 AM CDT POC GLUCOSE 11/25/2019 9:51 PM CDT MRI HEAD WO/W CONTRAST Routine 11/25/2019 8:59 PM CDT HC VRE SCREEN Routine 11/25/2019 2:30 PM CDT HC CBC W/ AUTOMATED DIFF Routine 11/25/2019 Diffu se large B-cell 7:55 AM CDT lymphoma of lymph nodes of multiple regions (HCC) HC COMPREHENSIVE Routine 11/25/2019 Diffuse large B-cell METABOLIC PANEL 7:55 AM CDT lymphoma of lymph n odes of multiple regions (HCC) HC LDH Routine 11/25/2019 Diffuse large B -cell 7:55 AM CDT lymphoma of lymph nodes of multiple regions (HCC) HC LVL IV SRG PTH, GROSS 11/13/2019 & MICRO 4:09 PM [employer]INCIPAL [employer] ARCHITECT ME FLOW CYTOMETRY 11/13/2019 INTERPRETATION 16/> 3:34 PM [employer] ARCHITECT MARKERS CHROMOSOMES BONE MARROW Routine 11/13/2019 3:34 PM [employer] ARCHITECT LEUKEMIA/LYMPHOMA PNL, Routine 11/13/2019 BONE MARROW 3:34 PM [employer] ARCHITECT HC FE STAIN, BM ASP Routine 11/13/2019 3:34 PM [employer] ARCHITECT BONE MARROW BIOPSY Routine 11/13/2019 3:34 PM [employer] ARCHITECT BONE MARROW ASP Routine 11/13/2019 3:34 PM [employer] ARCHITECT MANUAL DIFF Routine 11/13/2019 5:00 AM [employer]AL [employer] ARCHITECT HC PHOSPHOROUS, SERUM Routine 11/13/2019 (PO4CT) 5:00 AM [employer]IPAL SOLUTIONS ARCHITECT HC MAGNESIUM (MGCT) Routine 11/13/2019 5:00 AM [employer]AL [employer]UTIONS ARCHITECT HC COMPREHENSIVE Routine 11/13/2019 METABOLIC PANEL (CH12CT) 5:00 AM [employer] ARCHITECT HC CBC W AUTOMATED DIFF Routine 11/13/2019 (HPDCT) 5:00 AM [employer] ARCHITECT FLOW CYTOMETRY 11/12/2019 2:30 PM [employer]AL [employer] ARCHITECT ME FLOW CYTOMETRY 11/12/2019 INTERPRETATION 16/> 2:30 PM [employer] ARCHITECT MARKERS LEUKEMIA/LYMPHOMA PANEL 11/12/2019 FLUID/TISSUE 2:30 PM [employer]AL [employer] ARCHITECT LEUKEMIA/LYMPHOMA PANEL Routine 11/12/2019 FLUID/TISSUE 2:30 PM [employer] ARCHITECT HC MOD SEDATION, INIT 15 Routine 11/12/2019 MIN, =>5 YEARS 1:57 PM [employer] ARCHITECT HC LVL IV SRG PTH, GROSS Routine 11/12/2019 & MICRO 12:30 PM [employer] ARCHITECT HC URIC ACID Routine 11/12/2019 4:30 AM [employer] ARCHITECT HC LD(LDH;LACTIC Routine 11/12/2019 DEHYDROGENASE) 4:30 AM [employer]AL [employer] ARCHITECT HC PHOSPHOROUS, SERUM Routine 11/12/2019 (PO4CT) 4:30 AM [employer]IPAL [employer] ARCHITECT HC MAGNESIUM (MGCT) Routine 11/12/2019 4:30 AM [employer]IPAL [employer]UTIONS ARCHITECT HC COMPREHENSIVE Routine 11/12/2019 METABOLIC PANEL (CH12CT) 4:30 AM [employer]AL [employer] ARCHITECT HC CBC W AUTOMATED DIFF Routine 11/12/2019 (HPDCT) 4:30 AM [employer] ARCHITECT MRI PELVIS WO/W CONTRAST Routine 11/11/2019 10:01 PM [employer] ARCHITECT MRI L-SPINE WO/W CONTRAST Routine 11/11/2019 10:01 PM [employer] ARCHITECT HC VRE SCREEN Routine 11/11/2019 2:08 PM [employer] ARCHITECT NM PET SCAN TORSO Routine 11/11/2019 Diffuse larg e B-cell (SKULL-THIGHS) 8:51 AM [employer] ARCHITECT lymphoma of lymph n odes of multiple regions (HCC) HC LDH Routine 11/11/2019 Diffuse large B -cell 7:12 AM [employer] ARCHITECT lymphoma of lymph nodes of multiple regions (HCC) HC COMPREHENSIVE Routine 11/11/2019 Diffuse large B-cell METABOLIC PANEL 7:12 AM [employer]IPAL [employer]UTIONS ARCHITECT lymphoma of lymph n odes of multiple regions (HCC) HC CBC W/ AUTOMATED DIFF Routine 11/11/2019 Diffu se large B-cell 7:12 AM PRINCIPAL SOLUTIONS ARCHITECT lymphoma of lymph nodes of multiple regions (HCC) POC GLUCOSE 11/11/2019 7:02 AM [employer]AL [employer] ARCHITECT T SPINE 3 VIEWS Routine 10/28/2019 Diffuse large B-cell 11:48 AM [employer]AL [employer] ARCHITECT lymphoma of lymph nodes of multiple regions (HCC) L SPINE AP & LATERAL Routine 10/28/2019 Diffuse l arge B-cell 11:48 AM [employer] ARCHITECT lymphoma of lymph nodes of multiple regions (HCC) HC LDH Routine 10/28/2019 Diffuse large B -cell 8:13 AM [employer]AL [employer] ARCHITECT lymphoma, unspecified body region (HCC) HC URIC ACID Routine 10/28/2019 Diffuse large B -cell 8:13 AM [employer]INCIPAL SOLUTIONS ARCHITECT lymphoma, unspecified body region (HCC) HC COMPREHENSIVE Routine 10/28/2019 Diffuse large B-cell METABOLIC PANEL 8:13 AM [employer]IPAL [employer]IONS ARCHITECT lymphoma, unspecifi ed body region (HCC) HC CBC W/ AUTOMATED DIFF Routine 10/28/2019 Diffu se large B-cell 8:13 AM [employer]AL [employer] ARCHITECT lymphoma, unspecified body region (HCC) from Last 3 Months Results * POC GLUCOSE (11/28/2019 8:16 AM CDT) Only the most recent of 10 results within the time period is included. Glucose, POC 241 (H) 70 - 100 MG/DL MAIN LAB Specimen Performing Organization Address [facility] Ph one Number MAIN LAB [address] [place] [address] * PHOSPHORUS CELLULAR THERAPEUTICS (11/28/2019 4:28 AM CDT) Only the most recent of 5 results within the time period is included. Phosphorus 4.3 2.0 - 4.5 MG/DL MAIN LAB Specimen Blood Performing Organization Address [facility] Ph one Number MAIN LAB [address] [place] [address] * MAGNESIUM CELLULAR THERAPEUTICS (11/28/2019 4:28 AM CDT) Only the most recent of 5 results within the time period is included. Magnesium 2.5 1.6 - 2.6 mg/dL MAIN LAB Specimen Blood Performing Organization Address [facility]/State/Zipcode Ph one Number [facility] MAIN [facility] [address] [place] [address] * COMPREHENSIVE METABOLIC PANEL CELLULAR THERAPEUTICS (11/28/2019 4:28 AM CDT) Only the most recent of 5 results within the time period is included. Sodium 141 137 - 147 MMOL/L [facility] Potassium 4.0 3.5 - 5.1 MMOL/L [facility] Chloride 107 98 - 110 MMOL/L [facility] Glucose 217 (H) 70 - 100 MG/DL [facility] Blood Urea 17 7 - 25 MG/DL [facility] Nitrogen Creatinine 0.71 0.4 - 1.24 MG/DL [facility] Calcium 8.5 8.5 - 10.6 MG/DL [facility] Total Protein 5.9 (L) 6.0 - 8.0 G/DL [facility] Total Bilirubin 0.4 0.3 - 1.2 MG/DL [facility] Albumin 3.9 3.5 - 5.0 G/DL [facility] Alk Phosphatase 89 25 - 110 U/L [facility] AST (SGOT) 15 7 - 40 U/L [facility] CO2 26 21 - 30 MMOL/L [facility] ALT (SGPT) 11 7 - 56 U/L [facility] Anion Gap 8 3 - 12 [facility] eGFR Non >60 >60 mL/min [facility] Comment: [place] The eGFR is not validated f or use in drug dosing adjustments. Continue to use estimated creatinine clearance per dosing reference text. Please contact the Clinical Pharmacist for questions. eGFR >60 >60 mL/min [facility] [place] Comment: The eGFR is not validated for use in drug dosing adjustments. Continue to use estimated creatinine clearance per dosing reference text. Please contact the Clinical Pharmacist for questions. Specimen Blood Performing Organization Address City/State/Zipcode Ph one Number [facility] [address] [place] [address] * CBC AND DIFF CELLULAR THERAPEUTICS (11/28/2019 4:28 AM CDT) Only the most recent of 5 results within the time period is included. White Blood 3.8 (L) 4.5 - 11.0 K/UL [facility] Cells RBC 3.55 (L) 4.4 - 5.5 M/UL [facility] Hemoglobin 11.3 (L) 13.5 - 16.5 GM/DL [facility] Hematocrit 33.3 (L) 40 - 50 % [facility] MCV 94.0 80 - 100 FL [facility] MCH 32.0 26 - 34 PG [facility] MCHC 34.0 32.0 - 36.0 G/DL [facility] RDW 14.4 11 - 15 % [facility] Platelet Count 154 150 - 400 K/UL [facility] MPV 7.4 7 - 11 FL [facility] Neutrophils 88 (H) 41 - 77 % [facility] Lymphocytes 5 (L) 24 - 44 % [facility] Monocytes 7 4 - 12 % [facility] Eosinophils 0 0 - 5 % [facility] Basophils 0 0 - 2 % [facility] Absolute 3.30 1.8 - 7.0 K/UL [facility] Neutrophil Count Absolute Lymph 0.20 (L) 1.0 - 4.8 K/UL [facility] Count Absolute 0.30 0 - 0.80 K/UL [facility] Monocyte Count Absolute 0.00 0 - 0.45 K/UL [facility] Eosinophil Count Absolute 0.00 0 - 0.20 K/UL [facility] Basophil Count Specimen Blood Performing Organization Address City/State/Zipcode Ph one Number [facility] [address] [place] [address] * IR LUMBAR PUNCTURE (11/27/2019 9:49 AM CDT) Specimen Impressions Performed At Successful fluoroscopic guided lumbar puncture for th e purposes of intrathecal [facility] chemotherapy. Approved by Kendrick Franklin MD on 2019 9:56 AM By my electronic signature, I attest th at I have personally reviewed the images for this examination and formulated the interpretations and opinions expressed in this report Finalized by James Maxwell M.D. on 10:05 AM. Dictated by Kendrick Franklin MD on 11/27/2019 9:52 AM. Narrative Performed At Fluoroscopic Guided Lumbar Puncture for Intrathecal C hemotherapy [facility] Clinical History: 59-year-old male with lymphoma. Total fluoroscopy dose: 64 mGy. Medications: Subcutaneous 2% lidocaine Operators: Kendrick Franklin M.D., James Maxwell M.D. Intrathecal Chemotherapy: Administere d by James Maxwell M.D. Technique and Findings: After the procedure was explained, incl uding the potential risk, benefits, and alternatives, both informed written/alma bal consent and a brief history were obtained. The patient was brought to the fluorosc opy suite and placed on the examination table in a prone position. The lower ba ck was then prepped and draped in the usual standard sterile fashion. 2% lido kiersetn was used for local anesthesia. Utilizing fluoroscopy guidance, a 22 ga uge spinal needle was advanced into the intrathecal sac at the level of L3-L4 P osition was confirmed by return of cerebral spinal fluid, which was clear. Next, approximately 8 ml of cerebral spinal fluid was collected and sent to the laboratory for requested laboratory studies. At this time, the designated provider administered intrathecal chemotherapy per protocol. Finally, t he inner stylet was replaced, the needle was removed and adequate hemostasis was achieved. The patient tolerated procedure without complications and left the department in stable condition after appropriate rafa toring. Procedure Note Interface, Radiant Results - 11/27/2019 10:09 AM CDT Fluoroscopic Guided Lumbar Puncture for Intrathecal Chemotherapy Clinical History: 59-year-old male with lymphoma. Total fluoroscopy dose: 64 mGy. Medications: Subcutaneous 2% lidocaine Operators: Kendrick Franklin M.D., James Maxwell M.D. Intrathecal Chemotherapy: Administered by James Maxwell M.D. Technique and Findings: After the procedure was explained, including the potential risk, benefits, and alternatives, both informed written/verbal consent and a brief history were obtained. The patient was brought to the fluoroscopy suite and placed on the examination table in a prone position. The lower back was then prepped and draped in the usual standard sterile fashion. 2% lidocaine was used for local anesthesia. Utilizing fluoroscopy guidance, a 22 gauge spinal needle was advanced into the intrathecal sac at the level of L3-L4 Position was confirmed by return of cerebral spinal fluid, which was clear. Next, approximately 8 ml of cerebral spinal fluid was collected and sent to the laboratory for requested laboratory studies. At this time, the designated provider administered intrathecal chemotherapy per protocol. Finally, the inner stylet was replaced, the needle was removed and adequate hemostasis was achieved. The patient tolerated procedure without complications and left the department in stable condition after appropriate monitoring. IMPRESSION Successful fluoroscopic guided lumbar puncture for the purposes of intrathecal chemotherapy. Approved by Kendrick Franklin MD on 11/27/2019 9:56 AM By my electronic signature, I attest that I have personally reviewed the images for this examination and formulated the interpretations and opinions expressed in this report Finalized by James Maxwell M.D. on 11/27/2019 10:05 AM. Dictated by Kendrick Franklin MD on 11/27/2019 9:52 AM. Performing Organization Address City/[facility] Ph one Number [facility] * CSF TUBE VOLUMES (11/27/2019 9:42 AM CDT) CSF Tube 1 4.0 mL [facility] CSF Tube 2 2.0 mL [facility] CSF Tube 3 0.0 mL [facility] CSF Tube 4 0.0 mL [facility] Specimen Performing Organization Address [facility] one Number [facility] * FLOW CYTOMETRY (11/27/2019 9:42 AM CDT) Only the most recent of 4 results within the time period is included. PATHOLOGY [facility] [place] [facility] [email or web address] Eugene Velázquez MD, Director of Flow Cytometry Laboratory Department of Pathology and Laboratory Medicine [address] [place] [address] Surgical Pathology Office: [phone] FLOW CYTOMETRY REPORT NAME: REFUGIO TSE SURG PATH #: [id number] MR #: [id number] SPECIMEN CLASS: LC BILLING #: [id number] ALT ID #: LOCATION: 42 DATE OF PROCEDURE: 11/27/2019 AGE: 59 SEX: M DATE RECEIVED: 11/27/2019 : 1960 TIME RECEIVED: 10:48 PHYSICIAN: MOMO NOVAK MD DATE OF REPORT: 11/28/2019 COPY TO: MOMO NOVAK MD DATE OF PRINTIN11/28/2019 Material Received: A: Cerebrospinal fluid tube 2 History: The patient has a history of diffuse large B-cell lymphoma. ############################## ############################## ############ Final Diagnosis: Cerebrospinal fluid tube 2, flow cytometry: Negative phenotypic study. Interpretation: Lymphocytes comprise 16 % of total events, and, are T cells. B cells are absent. There is no immunophenotypic evidence of non-Hodgkin lymphoma. Attestation: By this signature, I attest that I have personally formulated the final interpretation expressed in this report and that the above diagnosis is based upon my examination of the slides and/or other material indicated in this report. +++Electronically Signed Out By+++ btmary/11/27/2019 Interpreted by: Yulissa Cm MD 11/28/2019 ############################## ############################## ############ Lab Data: Flow Cytometry - B Cell Panel B Cell Associated Markers (% Positive Cells): CD19 = 0; CD20 = 0; [place] = 0; Lambda = 0; [place]/Lambda ratio = n/a T Cell Associated Markers (% Positive Cells): CD5 = 80 Miscellaneous Markers (% Positive Cells): CD10 = 0; CD38 = 53; CD45 = 100 Cell Viability (%): qns Number of Cells Analyzed: 529 Total Number of Markers: 8 Summary of Marker Combinations: [place]/Lambda/5/19/38/45/10/20 This test was developed and its performance characteristics determined by the [facility] Flow Cytometry Laboratory. It has not been cleared or approved by the U.S. Food and Drug Administration (FDA). The FDA has determined that such clearance or approval is not necessary. Specimen Performing Organization Address City/[facility] Ph one Number [facility] [address] [place] [address] * LEUKEMIA/LYMPHOMA PANEL FLUID/TISSUE (11/27/2019 9:42 AM CDT) Only the most recent of 3 results within the time period is included. Leuk/Lymph SEE PATHOLOGY REPORT MAIN LAB Interpretation Specimen/LLM CSF MAIN LAB Specimen Cerebrospinal Fluid Performing Organization Address [facility] Ph one Number [facility] [address] [place] [address] * CELL COUNT W/DIFF-CSF (11/27/2019 9:42 AM CDT) Cell Count TUBE4 [facility] Tube,CSF White Blood 2 <5 /UL [facility] Cells,CSF Red Blood 6,875 /UL [facility] Cells,CSF Neutrophils, 76 % [facility] CSF Lymphocytes, 16 % [facility] CSF Monocyte/Hisoto 7 % [facility] cyte, CSF Eosinophils, 1 % [facility] CSF Clarity,CSF SLIGHTLY BLOODY [facility] Path HEMORRHAGIC FLUID [facility] Interpretation, NEGATIVE FOR ATYPICAL CSF HEMATOPOIETIC CELLS Pathologist INTERPRETED BY YTRA WISE [facility] Signature M.D. By the PATH SIGNATURE ABOVE, I attest that I have personally formulated the final interpretation expressed in this report and that the above diagnosis is based upon my examination of the slides and/or other material indicated in this report. Specimen Cerebrospinal fluid - Cerebrospinal Fluid Performing Organization Address [facility] Ph one Number [facility] [address] [place] [address] * TOTAL PROTEIN-CSF (11/27/2019 9:42 AM CDT) Total 81 (H) 15 - 45 MG/DL [facility] Protein,CSF Specimen Cerebrospinal fluid - Cerebrospinal Fluid Performing Organization Address [facility] Ph one Number [facility] [address] [place] [id number] * GLUCOSE-CSF (11/27/2019 9:42 AM CDT) Glucose,CSF 127 (H) 40 - 75 MG/DL [facility] Xanthrochromia, NONE [facility] CSF BLOOD PRESENT Specimen Cerebrospinal fluid - Cerebrospinal Fluid Performing Organization Address [facility] Ph one Number [facility] [address] [place] [address] * CYTOLOGY FLUIDS (11/27/2019 8:30 AM CDT) Cytology [facility] [email or web address] Department of Pathology and Laboratory Medicine [address] [place] [address] Surgical Pathology Office: [phone] CYTOLOGY REPORT NAME: REFUGIO TSE CYTOLOGY #: [id number] MR #: [id number] ALT ID #: BILLING #: [id number] LOCATION: DISCHARGED DATE OF PROCEDURE: 11/27/2019 AGE: 59 SEX: M DATE RECEIVED: 11/27/2019 : 1960 TIME RECEIVED: 14:19 PHYSICIAN: SHEILA LIEBERMAN MD DATE OF REPORT: 11/30/2019 COPY TO: MOMO NOVAK MD DATE OF PRINTIN11/30/2019 Material Received: A: Cerebrospinal Fluid History: 59 year old male with a history of DLBCL. Gross Description: (1 ThinPrep) 2mLs of cloudy pale red fluid. ############################## ############################## ############ Final Diagnosis: A. Cerebrospinal Fluid: Negative for malignant cells. Please also see concurrent flow cytometry report ([id number]). Attestation: By this signature, I attest that I have personally formulated the final interpretation expressed in this report and that the above diagnosis is based upon my examination of the slides and/or other material indicated in this report. +++Electronically Signed Out By+++ [facility]/11/30/2019 Interpreted by: Kelly Cisneros MD, PhD ANDREA WU, Fellow Specimen Cerebrospinal Fluid Performing Organization Address City/State/Zipcode Ph one Number MAIN LAB [address] [place] [address] * 2-D + DOPPLER ECHOCARDIOGRAM (11/26/2019 1:00 PM CDT) TDI lateral e' 0.10 m/s OTHER OUTSIDE LAB LA size 4.70 3.0 - 4.0 cm OTHER OUTSIDE LAB AV peak 1.29 m/s OTHER OUTSIDE velocity LAB Sinus 3.90 2.8 - 4.0 cm OTHER OUTSIDE LAB STJ 2.80 2.3 - 3.5 cm OTHER OUTSIDE LAB MV Peak A Fernando 1.00 m/s OTHER OUTSIDE LAB MV Peak E Fernando 0.75 m/s OTHER OUTSIDE PW LAB Right Heart 3.07 >1.7 cm OTHER OUTSIDE Systolic Mmode LAB TAPSE Right 3.60 1.9 - 3.5 cm OTHER OUTSIDE Ventricular Mid LAB Diameter Right 3.70 2.5 - 4.1 cm OTHER OUTSIDE Ventricular LAB Basal Diameter Right Atrial 4.87 2.1 - 2.7 cm OTHER OUTSIDE Major Dimension LAB Right Atrial 13.90 <18 cm2 OTHER OUTSIDE Area LAB Right Heart 0.13 m/s OTHER OUTSIDE Systolic TDI S' LAB BSA 2.26 m2 OTHER OUTSIDE LAB Referring Bertin Cole OTHER OUTSIDE Provider LAB CV ECHO PV Payal RN OTHER OUTSIDE FINISHER MAP AND CHART LAB E/A ratio 0.75 OTHER OUTSIDE LAB Lateral E/E' 7.50 OTHER OUTSIDE ratio LAB Cardiology Isabella Epiq OTHER OUTSIDE Ultrasound LAB Machine Ao root annulus 2.4 2.0 - 3.2 cm OTHER OUTSIDE LAB LA volume 78.0 18 - 58 mL OTHER OUTSIDE LAB Ascending aorta 4.0 cm OTHER OUTSIDE LAB TV rest N/A mmHg OTHER OUTSIDE pulmonary LAB artery pressure Left Atrium 34.51 16 - 34 OTHER OUTSIDE Index LAB TDI Medial e' 0.100 m/s OTHER OUTSIDE LAB Medial E/E' 7.50 OTHER OUTSIDE ratio LAB Left Ventricle 195.0 62 - 150 mL OTHER OUTSIDE Diastolic LAB Volume Left Ventricle 86.28 34 - 74 mL OTHER OUTSIDE Diastolic LAB Volume Index ECHO EF 45 % OTHER OUTSIDE LAB Specimen Narrative Performed At OTHER OUTSIDE LAB 1. Mild LV dilation, predominantly dist al LV cavity is thinned hypokinetic , and dilated suggestive of previous in jury. Borderline reduced LVEF=45- 50% 2. Grade 1 diastolic dysfunction 3. Normal RV size and function. 4. Mild LA dilation. 5. No significant valvular abnormality. 6. Normal CVP & no TR jet to estimate P ASP. 7. No pericardial effusion. Compared to prior study dated 9, LV appears less dilated, improved ejection fraction from 30%, si milar distal apical hanna. Otherwise no significant changes. Performing Organization Address City/State/Zipcode Ph one Number OTHER OUTSIDE LAB * MRI HEAD WO/W CONTRAST (11/25/2019 8:59 PM CDT) Specimen Impressions Performed At No evidence of intracranial involvement by lymphoma. [facility] Approved by Jacqui Gillette M.D. o domo 11/26/2019 9:16 AM By my electronic signature, I attest th at I have personally reviewed the images for this examination and formulated the interpretations and opinions expressed in this report Finalized by Mick Pittman M.D. on 08/2020 9:37 AM. Dictated by Jacqui Gillette M.D. on 11/26/2019 8:02 AM. Narrative Performed At EXAM: MRI BRAIN [facility] HISTORY: 59-year-old male, DLBCL with RESEARCH DEVELOPMENT DIRECTOR (spina l cord) involvement TECHNIQUE: Multiplanar and multisequenc e MR imaging of the head was performed. This was done both before and after the administration of MultiHance contrast. COMPARISON: None FINDINGS: The ventricles and subarachnoid spaces are normal in size and configuration. Brain parenchyma is normal in signal. T here is no midline shift or mass effect. There is no area of abnormal contrast e nhancement. The vascular flow-voids are unremarkable. Diffusion weighted imagin g is not indicative of acute or recent infarct. Mucous retention cyst or polyp within the left maxillary sinus. Procedure Note Interface, Radiant Results - 11/26/2019 9:40 AM CDT EXAM: MRI BRAIN HISTORY: 59-year-old male, DLBCL with RESEARCH DEVELOPMENT DIRECTOR (spinal cord) involvement TECHNIQUE: Multiplanar and multisequence MR imaging of the head was performed. This was done both before and after the administration of MultiHance contrast. COMPARISON: None FINDINGS: The ventricles and subarachnoid spaces are normal in size and configuration. Brain parenchyma is normal in signal. There is no midline shift or mass effect. There is no area of abnormal contrast enhancement. The vascular flow-voids are unremarkable. Diffusion weighted imaging is not indicative of acute or recent infarct. Mucous retention cyst or polyp within the left maxillary sinus. IMPRESSION No evidence of intracranial involvement by lymphoma. Approved by Jacqui Gillette M.D. on 11/26/2019 9:16 AM By my electronic signature, I attest that I have personally reviewed the images for this examination and formulated the interpretations and opinions expressed in this report Finalized by Mick Pittman M.D. on 11/26/2019 9:37 AM. Dictated by Jacqui Gillette M.D. on 11/26/2019 8:02 AM. Performing Organization Address City/State/Zipcode Ph one Number [facility] * VRE SCREEN (11/25/2019 2:30 PM CDT) Only the most recent of 2 results within the time period is included. Battery Name VRE SCREEN [facility] Specimen PERIRECTAL SWAB [facility] Description Special NONE [facility] Requests Culture NO VRE ISOLATED [facility] Report Status FINAL [facility] 11/27/2019 Specimen Perirectal Swab Performing Organization Address [facility] one Number MAIN LAB [address] [place] [address] * CBC AND DIFF (11/25/2019 7:55 AM CDT) Only the most recent of 3 results within the time period is included. White Blood 3.9 (L) 4.5 - 11.0 K/UL [facility] Cells RBC 3.90 (L) 4.4 - 5.5 M/UL [facility] Hemoglobin 12.4 (L) 13.5 - 16.5 GM/DL [facility] Hematocrit 36.8 (L) 40 - 50 % [facility] MCV 94.4 80 - 100 FL [facility] MCH 31.8 26 - 34 PG [facility] MCHC 33.7 32.0 - 36.0 G/DL [facility] RDW 14.2 11 - 15 % [facility] Platelet Count 198 150 - 400 K/UL [facility] MPV 6.6 (L) 7 - 11 FL [facility] Neutrophils 50 41 - 77 % [facility] Lymphocytes 23 (L) 24 - 44 % [facility] Monocytes 19 (H) 4 - 12 % [facility] Eosinophils 6 (H) 0 - 5 % [facility] Basophils 2 0 - 2 % [facility] Absolute 1.90 1.8 - 7.0 K/UL [facility] Neutrophil Count Absolute Lymph 0.90 (L) 1.0 - 4.8 K/UL [facility] Count Absolute 0.70 0 - 0.80 K/UL [facility] Monocyte Count Absolute 0.20 0 - 0.45 K/UL [facility] Eosinophil Count Absolute 0.10 0 - 0.20 K/UL [facility] Basophil Count Specimen Blood Performing Organization Address [facility] one Number [facility] [address] [place] [address] * LDH-LACTATE DEHYDROGENASE (11/25/2019 7:55 AM CDT) Only the most recent of 4 results within the time period is included. Lactate 146 100 - 210 U/L [facility] Dehydrogenase Specimen Blood Performing Organization Address City/[facility]/Zipcode Ph one Number [facility] [address] [place] [address] * COMPREHENSIVE METABOLIC PANEL (11/25/2019 7:55 AM CDT) Only the most recent of 3 results within the time period is included. Pathologist [facility] Sodium 139 137 - 147 MMOL/L [facility] Potassium 4.4 3.5 - 5.1 MMOL/L [facility] Chloride 103 98 - 110 MMOL/L [facility] Glucose 124 (H) 70 - 100 MG/DL [facility] Blood Urea 14 7 - 25 MG/DL [facility] Nitrogen Creatinine 0.71 0.4 - 1.24 MG/DL [facility] Calcium 9.1 8.5 - 10.6 MG/DL [facility] Total Protein 6.5 6.0 - 8.0 G/DL [facility] Total Bilirubin 0.3 0.3 - 1.2 MG/DL [facility] Albumin 4.2 3.5 - 5.0 G/DL [facility] Alk Phosphatase 110 25 - 110 U/L [facility] AST (SGOT) 14 7 - 40 U/L [facility] CO2 30 21 - 30 MMOL/L [facility] ALT (SGPT) 11 7 - 56 U/L [facility] Anion Gap 6 3 - 12 [facility] eGFR Non >60 >60 mL/min [facility] Comment: [place] The eGFR is not validated f or use in drug dosing adjustments. Continue to use estimated creatinine clearance per dosing reference text. Please contact the Clinical Pharmacist for questions. eGFR >60 >60 mL/min [facility] Welsh Comment: The eGFR is not validated for use in drug dosing adjustments. Continue to use estimated creatinine clearance per dosing reference text. Please contact the Clinical Pharmacist for questions. Specimen Blood Performing Organization Address City[facility] Ph one Number [facility] [address] [place] [address] * BONE MARROW (11/13/2019 4:09 PM [employer]INCIPAL [employer]IONS ARCHITECT) Pathologist [facility] PATHOLOGY [facility] [email or web address] Department of Pathology and Laboratory Medicine [address] [place] [address] Surgical Pathology Office: [phone] SURGICAL PATHOLOGY REPORT NAME: REFUGIO TSE SURG PATH #: [id number] MR #: [id number] ALT ID #: LOCATION: 42 DATE OF PROCEDURE: 11/13/2019 AGE: 59 SEX: M DATE RECEIVED: 11/13/2019 : 1960 TIME RECEIVED: 16:09 PHYSICIAN: RANDY GARCIA DATE OF REPORT: 11/17/2019 COPY TO: DATE OF PRINTIN11/17/2019 ############################## ############################## ############ Final Diagnosis: Bone marrow, left iliac crest, aspirate, biopsy, clot, and touch prep: Hypocellular bone marrow (10%) with decreased trilineage hematopoiesis, 2% blasts and increased fibrosis. There is no morphologic or phenotypic evidence of lymphoma. Peripheral blood smear: Normocytic anemia and absolute lymphopenia Attestation: By this signature, I attest that I have personally formulated the final interpretation expressed in this report and that the above diagnosis is based upon my examination of the slides and/or other material indicated in this report. Zacarias Valdivia MD Resident bm/11/16/2019 Material Received: A: left bone marrow clot B: left bone marrow biopsy History: 59-year-old male with history of diffuse large B-cell lymphoma, previous bone marrow involvement, status-post chemotherapy Gross Description: A. Received in Zinc formalin labeled "left bone marrow clot" is a 3.0 x 0.8 x 0.3 cm aggregate of friable red-brown clotted blood elements. The specimen is serially sectioned and entirely submitted in cassette A1. (amn) B. Received in Zinc formalin labeled "left bone marrow biopsy" is a 2.1 cm in length and 0.2 cm in diameter cylindrical, yellow-jean baptiste firm piece of tissue. The specimen is submitted in cassette B1 after decalcification. (amn) amn/11/13/2019 Microscopic Description: CBC Data: HGB 11.4 (g/dL); RBC 3.47 (m/uL); MCV 94.7 (FL); RDW 15.3 (%); WBC 3.7 (k/uL); PLT 158 (k/uL). Blood Smear Diff (%): Segmented neutrophils 55; lymphocytes 21; monocytes 19; eosinophils 5 Blood Smear Morphology: RBC: Normocytic anemia WBC: Absolute lymphopenia Platelets: Normal Bone Marrow Aspirate/Touch Prep Morphology: Aspirate Adequacy: Suboptimal Touch Prep Adequacy: Suboptimal Cellularity: Decreased Megakaryocytes: Decreased Blasts: Normal Erythroid: Normal Granulocytes: Decreased Lymphocytes: Normal Plasma Cells: Normal Bone Marrow Differential Cell Count (%): Blasts: 2 Promyelocytes: 1 Myelocytes: 4 Metamyelocytes: 4 Segs/Bands: 13 Eosinophils: 5 Erythroid: 48 Monocytes: 8 Lymphocytes: 13 Plasma cells: 2 M:E ratio: 0.6 Bone Marrow Core Biopsy: Adequacy: Adequate Length: 1.7cm Cellularity: 10% Megakaryocytes: Decreased Hematopoiesis: Resembles aspirate smear / touch prep Atypical Infiltrates: Increased fibrosis. Bone Marrow Cell Clot: Adequacy: Inadequate, lack of cellularity Additional Stains: Iron Stain: Iron stain on the touch prep smear is inadequate due to lack of spicules with decreased sideroblast iron, and no ring sideroblasts. Immunohistochemistry: Immunohistochemical staining performed on the core biopsy (Block B1) is negative for [place]-5; supporting the above diagnosis. 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 Ancillary Studies: Flow Cytometry: Performed, see separate report ([id number]) which reports a negative immunophenotypic study. Cytogenetics: Performed, see separate report Fluorescence In Situ Hybridization: Not performed Molecular Genetics: Not performed Preliminary Diagnosis: Not performed If immunohistochemical stains and/or in situ hybridization are cited in this report, the performance characteristics were determined by the Department of Pathology and Laboratory Medicine of the [facility] ([employer]) in compliance with CLIA'88 regulations. Some of these tests rely on the use of "analyte specific reagents" and are subject to specific labeling requirements by the FDA. Known positive and negative control tissues demonstrate appropriate staining. Results should be interpreted with caution given the likelihood of false negativity on decalcified specimens. This testing was developed by the Department of Pathology and Laboratory Medicine of the [facility]. It has not been cleared or approved by the FDA. The FDA has determined that such clearance or approval is not necessary. Specimen Performing Organization Address City/State/Zipcode Ph one Number MAIN LAB [address] [place] [address] * LEUKEMIA/LYMPHOMA PNL, BONE MARROW (11/13/2019 3:34 PM PRINCIPAL SOLUTIONS ARCHITECT) Leuk/Lymph SEE PATHOLOGY REPORT MAIN LAB Interpretation Specimen/LLM BONE MARROW MAIN LAB Specimen Bone Marrow Performing Organization Address City/[facility] Ph one Number MAIN LAB [address] [place] [address] * CHROMOSOMES BONE MARROW (11/13/2019 3:34 PM PRINCIPAL SOLUTIONS ARCHITECT) Pathologist [facility] Chromosomes Cytogenetics Report Available MAIN LAB Bone Marrow in Epic Specimen Bone Marrow Narrative Performed At This result has an attachment that is n ot available. Performing Organization Address City/[facility] Ph one Number MAIN LAB [address] [place] [address] * FE STAIN (11/13/2019 3:34 PM PRINCIPAL SOLUTIONS ARCHITECT) Bone Marrow FE SEE PATHOLOGY REPORT MAIN LAB Specimen Bone Marrow - Bone Marrow Performing Organization Address City/[facility] Ph one Number MAIN LAB [address] [place] [address] * BONE MARROW ASP (11/13/2019 3:34 PM PRINCIPAL SOLUTIONS ARCHITECT) Bone Marrow Asp SEE PATHOLOGY REPORT MAIN LAB Specimen Bone Marrow - Bone Marrow Performing Organization Address [facility] Number [facility] LAB [address] [place] [address] * BONE MARROW BIOPSY (11/13/2019 3:34 PM PRINCIPAL SOLUTIONS ARCHITECT) Bone Marrow Bx SEE PATHOLOGY REPORT MAIN LAB Specimen Bone Marrow - Bone Marrow Performing Organization Address City/[facility] Ph one Number MAIN LAB [address] [place] [address] * MANUAL DIFF (11/13/2019 5:00 AM PRINCIPAL SOLUTIONS ARCHITECT) Segmented 54 41 - 77 % MAIN LAB Neutrophils Lymphocytes 21 (L) 24 - 44 % MAIN LAB Monocytes 19 (H) 4 - 12 % MAIN LAB Eosinophil 5 0 - 5 % MAIN LAB Atypical Lym 1 % MAIN LAB Platelet NORMAL MAIN LAB Estimate RBC Morph ANISO MAIN LAB Specimen Performing Organization Address City/State/Zipcode Ph one Number [facility] MAIN [facility] [address] [place] [address] * IR PERCUTANEOUS BIOPSY (11/12/2019 1:57 PM PRINCIPAL SOLUTIONS ARCHITECT) Specimen Impressions Performed At Impression: Fluoroscopically guided biopsy of the T9 and T4 vertebral body as [facility] discussed above. I, Dorian Osei M.D., the attending rad iologist, was present for the procedure, personally reviewed the images, and for mulated the interpretations and opinions expressed in this report. @TT Finalized by Dorian Osei M.D. on 2019 3:02 PM. Dictated by Dorian Osei M.D. on 11/12/2019 3:00 PM. Narrative Performed At Exam: Fluoroscopically guided biopsy of T9 vertebral body, T4 vertebral body. [facility] History: Vertebral body lesions. Sedation: I was personally responsible for the administration of moderate sedation services during the procedure performed and I confirm requirements described in CPT section on moderate se dation were followed, including the use of an independent trained observer who had no other duties during the procedure. The drug(s) utilized were Versed and fentanyl (i.e. see nursing log for details). Comparison studies: Recent CT/MRI scans . Technique: After obtaining informed wri tten consent the patient was placed prone on the procedure table. The lower back was prepped and draped in a sterile fashion. The T9 level was localized wit h direct fluoroscopic visualization. Lidocaine was used for local anesthesia . A small skin incision overlying the right pedicle was made. An 11-gauge coa xial introducer set was advanced under direct fluoroscopic visualization, to t he posterior aspect of the vertebral body. The biopsy device was inserted th rough the introducer set, and core biopsies were obtained. These were plac ed into formalin and saline, and sent to the laboratory for further analysis. Th e introducer set was removed. Hemostasis was achieved using manual compression. Dermabond and a sterile dressing was applied. The patient tolerated the proc edure well and left the department in good condition. This same process was repeated for the T4 vertebral body Procedure Note Interface, Radiant Results - 11/12/2019 3:05 PM PRINCIPAL SOLUTIONS ARCHITECT Exam: Fluoroscopically guided biopsy of T9 vertebral body, T4 vertebral body. History: Vertebral body lesions. Sedation: I was personally responsible for the administration of moderate sedation services during the procedure performed and I confirm requirements described in CPT section on moderate sedation were followed, including the use of an independent trained observer who had no other duties during the procedure. The drug(s) utilized were Versed and fentanyl (i.e. see nursing log for details). Comparison studies: Recent CT/MRI scans. Technique: After obtaining informed written consent the patient was placed prone on the procedure table. The lower back was prepped and draped in a sterile fashion. The T9 level was localized with direct fluoroscopic visualization. Lidocaine was used for local anesthesia. A small skin incision overlying the right pedicle was made. An 11-gauge coaxial introducer set was advanced under direct fluoroscopic visualization, to the posterior aspect of the vertebral body. The biopsy device was inserted through the introducer set, and core biopsies were obtained. These were placed into formalin and saline, and sent to the laboratory for further analysis. The introducer set was removed. Hemostasis was achieved using manual compression. Dermabond and a sterile dressing was applied. The patient tolerated the procedure well and left the department in good condition. This same process was repeated for the T4 vertebral body IMPRESSION Impression: Fluoroscopically guided biopsy of the T9 and T4 vertebral body as discussed above. IDorian M.D., the attending radiologist, was present for the procedure, personally reviewed the images, and formulated the interpretations and opinions expressed in this report. @TT Finalized by Dorian Osei M.D. on 11/12/2019 3:02 PM. Dictated by Dorian Osei M.D. on 11/12/2019 3:00 PM. Performing Organization Address City/State/Zipcode Ph one Number [facility] RES[facility] * PATHOLOGY/CYTOLOGY REQUEST (11/12/2019 12:30 PM PRINCIPAL SOLUTIONS ARCHITECT) PATHOLOGY [facility] [email or web address] Department of Pathology and Laboratory Medicine [address] [place] [id number] Surgical Pathology Office: [phone] SURGICAL PATHOLOGY REPORT NAME: REFUGIO TSE SURG PATH #: [id number] MR #: [id number] SPECIMEN CLASS: SR BILLING #: [id number] ALT ID #: LOCATION: [id number] DATE OF PROCEDURE: 11/12/2019 AGE: 59 SEX: M DATE RECEIVED: 11/12/2019 : 1960 TIME RECEIVED: 15:56 PHYSICIAN: TREVOR LEMON DATE OF REPORT: 11/17/2019 COPY TO: OLEG Mary MORELAND DO DATE OF PRINTIN11/17/2019 ############################## ############################## ############ Final Diagnosis: A. Bone, "L4 bone biopsy", core biopsy: No diagnostic abnormality B. Bone, "T9 bone biopsy", core biopsy: Marked crush artifact, suspicious for lymphoma but a definite diagnosis cannot be rendered. See comment. Comment: The T9 bone biopsy consists of a small fragment of bone with complete crush artifact of the cellular constituents. A panel of immunoperoxidase stains was performed which are showing high background staining and are difficult to interpret due to crush artifact, (CD3, pax 5, BCL6, CD20 and Ki-67). Overall, the findings are suspicious for lymphoma but a definite diagnosis cannot be rendered. Correlation with the radiographic and clinical features recommended. Concurrent flow cytometry reports negative phenotypic study for both the L4 and T9 biopsies. (See separate flow cytometry reports in Results Review, [id number], and [id number]). Pursuant to the [employer] Program at the [facility] Pathology Department, selected slides from this case have been concurrently reviewed by the following pathologist: Dr. Ye, who agrees with the final diagnosis. Attestation: By this signature, I attest that I have personally formulated the final interpretation expressed in this report and that the above diagnosis is based upon my examination of the slides and/or other material indicated in this report. +++ +++ bm/11/13/2019 ############################## ############################## ############ Material Received: A: L4 bone biopsy B: T9 bone biopsy History: 59-year-old male with a history of diffuse large B-cell lymphoma. Gross Description: A. Received in formalin, labeled with the patient's name and "L4 bone biopsy" is a 0.5 x 0.2 x 0.2 cm jean baptiste-pink cylindrical bone fragment. The specimen is entirely submitted in cassette A1. (ket) B. Received in formalin, labeled with the patient's name and "T9 bone biopsy" is a 0.4 x 0.2 x 0.2 cm jean baptiste-pink cylindrical bone fragment. The specimen is entirely submitted in cassette B1. (ket) 11/12/2019 If immunohistochemical stains and/or in situ hybridization are cited in this report, the performance characteristics were determined by the Department of Pathology and Laboratory Medicine of the [facility] ([employer]) in compliance with CLIA'88 regulations. Some of these tests rely on the use of "analyte specific reagents" and are subject to specific labeling requirements by the FDA. Known positive and negative control tissues demonstrate appropriate staining. Results should be interpreted with caution given the likelihood of false negativity on decalcified specimens. This testing was developed by the Department of Pathology and Laboratory Medicine of the [facility]. It has not been cleared or approved by the FDA. The FDA has determined that such clearance or approval is not necessary. Specimen Other (Specify) Performing Organization Address City/[facility] Ph one Number [facility] [address] [place] [address] * URIC ACID (11/12/2019 4:30 AM PRINCIPAL SOLUTIONS ARCHITECT) Only the most recent of 2 results within the time period is included. Uric Acid 4.0 4.0 - 8.0 MG/DL MAIN LAB Specimen Blood Performing Organization Address City/[facility] Ph one Number MAIN LAB [address] [place] [address] * MRI PELVIS WO/W CONTRAST (11/11/2019 10:01 PM PRINCIPAL SOLUTIONS ARCHITECT) Specimen Impressions Performed At Scattered, enhancing T2 hyperintense le sions within the sacrum, bony pelvis, and [facility] proximal femurs bilaterally. Many of th estela lesions demonstrated mild to moderate hypermetabolic activity in the same day PET examination and are suggestive of sites of osseous involvement by the pat ient's diffuse large B-cell lymphoma. Finalized by Nithin Burleson D.O. on 2019 4:10 PM. Dictated by Nithin Burleson D.O. on 11/12/2019 4:00 PM. Narrative Performed At MRI of the pelvis [facility] Clinical history: Cancer and extra thor acic (known or suspected); review of the patient's chart indicates that the ayana ent has diffuse large B-cell lymphoma with skeletal and lymph node involvemen t TECHNIQUE: Multiplanar, multisequence M R imaging was obtained through the pelvis both before and after the IV administra tion of MultiHance gadolinium contrast material. COMPARISON: Same day PET/CT examination FINDINGS: The urinary bladder and prostate gland are unremarkable. Visualized pelvic bowel loops are nondistended. There is no asc ites. No pelvic lymphadenopathy. Scattered, enhancing T2 hyperintense le sions are noted within the sacrum, bony pelvis, and proximal femurs bilaterally . Many of these lesions demonstrated mild to moderate hypermetabolic activity in the same day PET examination and are suggestive of sites of osseous involvem ent by the patient's diffuse large B-cell lymphoma. Procedure Note Interface, Radiant Results - 11/12/2019 4:13 PM PRINCIPAL SOLUTIONS ARCHITECT MRI of the pelvis Clinical history: Cancer and extra thoracic (known or suspected); review of the patient's chart indicates that the patient has diffuse large B-cell lymphoma with skeletal and lymph node involvement TECHNIQUE: Multiplanar, multisequence MR imaging was obtained through the pelvis both before and after the IV administration of MultiHance gadolinium contrast material. COMPARISON: Same day PET/CT examination FINDINGS: The urinary bladder and prostate gland are unremarkable. Visualized pelvic bowel loops are nondistended. There is no ascites. No pelvic lymphadenopathy. Scattered, enhancing T2 hyperintense lesions are noted within the sacrum, bony pelvis, and proximal femurs bilaterally. Many of these lesions demonstrated mild to moderate hypermetabolic activity in the same day PET examination and are suggestive of sites of osseous involvement by the patient's diffuse large B-cell lymphoma. IMPRESSION Scattered, enhancing T2 hyperintense lesions within the sacrum, bony pelvis, and proximal femurs bilaterally. Many of these lesions demonstrated mild to moderate hypermetabolic activity in the same day PET examination and are suggestive of sites of osseous involvement by the patient's diffuse large B-cell lymphoma. Finalized by Nithin Burleson D.O. on 11/12/2019 4:10 PM. Dictated by Nithin Burleson D.O. on 11/12/2019 4:00 PM. Performing Organization Address City/State/Zipcode Ph one Number [facility] * MRI L-SPINE WO/W CONTRAST (11/11/2019 10:01 PM PRINCIPAL SOLUTIONS ARCHITECT) Specimen Impressions Performed At 1. Prior T12-L2 posterior spinal fusion with L1 compr ession deformity with [facility] retropulsion results in mild spinal can al stenosis without compromise of the conus. No new compression deformity 2. Decreasing conspicuity of multifocal lymphomatous osseous involvement without a new lesion identified. 3. Multilevel spinal canal stenosis mos t pronounced to a moderate degree at L3-4 Approved by Renato Juan M.D. on 2019 5:14 PM By my electronic signature, I attest th at I have personally reviewed the images for this examination and formulated the interpretations and opinions expressed in this report Finalized by Mick Pittman M.D. on 5:16 PM. Dictated by Renato Juan M.D. on 11/12/2019 4:29 PM. Narrative Performed At EXAM: MRI L-SPINE [facility] HISTORY: , Cancer extrathoracic (known or suspec ignacio), Technique: Multiple sagittal and axial MR sequences were obtained of the lumbar spine with and without MultiHance contr ast. Comparison: PET/CT November 11, 2019 MR lumbar spine April 24, 2019 and lumbar spine radiograph October 28, 2019 FINDINGS: Dr. Mick Pittman M.D. has personally reviewed these images and formulated the interpretations and opinions expressed in this report. Exam is significantly limited due to re spiratory motion and hardware from posterior spinal fusion. Prior posterior spinal fusion T12-L2 wi th posterior decompression. Prior L1 compressions deformity status post ceme nt augmentation. There is retropulsion of the vertebral body resulting in mild sp inal canal stenosis with no compromise of the conus. Numerous enhancing osseous l esions consistent with multifocal lymphoma involvement are less conspicuo us from MR lumbar spine April 24, 2019. No definite extra osseous extension is seen. No new compression deformity is seen. The conus is normal in appearan ce and position at the L1 level. T12-L1: No significant neural foraminal stenosis L1-2: No spinal canal stenosis. No defi nite neural foraminal stenosis, though limited due to hardware artifact. L2-3: Circumferential disc bulge. Facet arthrosis. Mild spinal canal stenosis. Mild left neural foraminal stenosis, th ough limited due to adjacent hardware. L3-4: Circumferential disc bulge. Facet arthrosis. Moderate spinal canal stenosis. Mild right and left neural fo raminal stenosis. L4-5: Circumferential disc bulge. Facet arthrosis. Mild spinal canal stenosis. No significant neural foraminal stenosi s. L5-S1: Somewhat limited due to respirat ory motion at this level. Facet arthrosis. No definite spinal canal fish nosis. No significant neural foraminal stenosis. No new soft tissue mass or adenopathy i dentified. Procedure Note Interface, Radiant Results - 11/12/2019 5:19 PM PRINCIPAL SOLUTIONS ARCHITECT EXAM: MRI L-SPINE HISTORY: , Cancer extrathoracic (known or suspected), Technique: Multiple sagittal and axial MR sequences were obtained of the lumbar spine with and without MultiHance contrast. Comparison: PET/CT November 11, 2019 MR lumbar spine April 24, 2019 and lumbar spine radiograph October 28, 2019 FINDINGS: Dr. Mick Pittman M.D. has personally reviewed these images and formulated the interpretations and opinions expressed in this report. Exam is significantly limited due to respiratory motion and hardware from posterior spinal fusion. Prior posterior spinal fusion T12-L2 with posterior decompression. Prior L1 compressions deformity status post cement augmentation. There is retropulsion of the vertebral body resulting in mild spinal canal stenosis with no compromise of the conus. Numerous enhancing osseous lesions consistent with multifocal lymphoma involvement are less conspicuous from MR lumbar spine April 24, 2019. No definite extra osseous extension is seen. No new compression deformity is seen. The conus is normal in appearance and position at the L1 level. T12-L1: No significant neural foraminal stenosis L1-2: No spinal canal stenosis. No definite neural foraminal stenosis, though limited due to hardware artifact. L2-3: Circumferential disc bulge. Facet arthrosis. Mild spinal canal stenosis. Mild left neural foraminal stenosis, though limited due to adjacent hardware. L3-4: Circumferential disc bulge. Facet arthrosis. Moderate spinal canal stenosis. Mild right and left neural foraminal stenosis. L4-5: Circumferential disc bulge. Facet arthrosis. Mild spinal canal stenosis. No significant neural foraminal stenosis. L5-S1: Somewhat limited due to respiratory motion at this level. Facet arthrosis. No definite spinal canal stenosis. No significant neural foraminal stenosis. No new soft tissue mass or adenopathy identified. IMPRESSION 1. Prior T12-L2 posterior spinal fusion with L1 compression deformity with retropulsion results in mild spinal canal stenosis without compromise of the conus. No new compression deformity 2. Decreasing conspicuity of multifocal lymphomatous osseous involvement without a new lesion identified. 3. Multilevel spinal canal stenosis most pronounced to a moderate degree at L3-4 Approved by Renato Juan M.D. on 11/12/2019 5:14 PM By my electronic signature, I attest that I have personally reviewed the images for this examination and formulated the interpretations and opinions expressed in this report Finalized by Mick Pittman M.D. on 11/12/2019 5:16 PM. Dictated by Renato Juan M.D. on 11/12/2019 4:29 PM. Performing Organization Address City/State/[facility] Ph one Number [facility] RES[facility] * NM PET SCAN TORSO (SKULL-THIGHS) (11/11/2019 8:51 AM PRINCIPAL SOLUTIONS ARCHITECT) Specimen Addenda Addendum by Trevor Fernández II, MD on 11/12/2019 1:25 PM Finalized by Trveor Fernández M.D. on 11/11/2019 10:34 AM. Dictated by Radha Haley MD on 11/11/2019 8:24 AM.Addendum: Clarification following further discussion with patient's hematology team: No recent bone marrow biopsy has been performed. Therefore, new focal increased FDG uptake involving the left posterior crest is concerning for refractory disease and biopsy is recommended for histologic confirmation. Finalized by Trevor Fernández M.D. on 11/12/2019 1:22 PM. Dictated by Trevor Fernández M.D. on 11/12/2019 1:20 PM. Impressions Performed At 1. Decreased heterogeneous marrow hypermetabolism. Sm all mildly hypermetabolic [facility] focus within the right posterior T9 alma tebral body not exceeding background hepatic activity. Interval visualizatio n of more focally intense FDG avidity along the left posterior iliac crest, l ikely corresponding to bone marrow biopsy site. 2. Development of two adjacent small hy permetabolic nodular left paravertebral foci within the lumbosacral fossa at th e level of the L5 vertebral body. Findings are indeterminate and may refl ect minimal residual and/or new sites of disease versus inflammatory uptake. Fol low-up PET/CT recommended in 3 months (or according to clinical protocol) for alan ssessment. 5PS = X or 5. By my electronic signature, I attest th at I have personally reviewed the images for this examination and formulated the interpretations and opinions expressed in this report Narrative Performed At MT PET SCAN TORSO (SKULL-THIGHS) [facility] Radiopharmaceutical: 12 mCi F-18 Fluoro deoxyglucose (FDG) IV. Clinical Indication: Diffuse large B-ce ll lymphoma with skeletal and lymph node involvement. Status post completion of chemotherapy at outside facility. R-COEP?s/p 6 cycles Technique: PET imaging was performed fr om the skull to thighs 72 minutes after tracer administration. Low dose non-con trast CT imaging was performed for attenuation correction and localization purposes. Current mean hepatic SUV (reported for quality analyst purposes) is 2.6. Blood glucose level (at the time of rad iopharmaceutical administration): 113 mg/dL Comparison: External PET/CT 08/25/2019. PET/CT 07/05/2019. FINDINGS: Lymph Nodes: No hypermetabolic lymphade nopathy. Spleen: Probable increased size of the spleen which is mildly enlarged measuring 15 cm craniocaudal length. No focal or diffuse splenic hypermetabolism. Marrow: Decreased conspicuity of patchy heterogeneous marrow hypermetabolism. Redemonstration of extensive lytic and sclerotic changes throughout the visualized osseous structures. Small mi ldly hypermetabolic focus within the right posterior T9 vertebral body, not definitively exceeding background hepatic activity. Development of focal hypermet abolism involving the posteromedial left iliac bone. Remainder of marrow no exce eds background marrow activity either diffusely or focally. Other/Extranodal: Persistent mild ill-d efined right upper lobe opacities which remain too small to characterize. Devel opment of 2 small nodular hypermetabolic left paravertebral nodular foci within the left lumbosacral fossa at the L5 level demonstrates a maximum SUV of 7.3 , moderately greater than background hepatic activity. Focal uptake at the r ectosigmoid colon was not discretely visualized and the prior examination an d likely reflects inflammation or physiologic activity rather than polyp. Additional CT Findings: Previous cement augmentation of an L1 vertebral body compression fracture deformity. Reconst ruction of pathologic bilateral rib fractures. Posterior spinal fixation of the lower lumbar spine. Scattered pleural-parenchymal scarring and bibasi lar atelectasis. Marked coronary artery disease. Right IJ chest port. Mild dist al colonic diverticulosis. Procedure Note Interface, Radiant Results - 11/12/2019 1:25 PM PRINCIPAL SOLUTIONS ARCHITECT NM PET SCAN TORSO (SKULL-THIGHS) Radiopharmaceutical: 12 mCi F-18 Fluorodeoxyglucose (FDG) IV. Clinical Indication: Diffuse large B-cell lymphoma with skeletal and lymph node involvement. Status post completion of chemotherapy at outside facility. R- COEP?s/p 6 cycles Technique: PET imaging was performed from the skull to thighs 72 minutes after tracer administration. Low dose non-contrast CT imaging was performed for attenuation correction and localization purposes. Current mean hepatic SUV (reported for quality analyst purposes) is 2.6. Blood glucose level (at the time of radiopharmaceutical administration): 113 mg/dL Comparison: External PET/CT 08/25/2019. PET/CT 07/05/2019. FINDINGS: Lymph Nodes: No hypermetabolic lymphadenopathy. Spleen: Probable increased size of the spleen which is mildly enlarged measuring 15 cm craniocaudal length. No focal or diffuse splenic hypermetabolism. Marrow: Decreased conspicuity of patchy heterogeneous marrow hypermetabolism. Redemonstration of extensive lytic and sclerotic changes throughout the visualized osseous structures. Small mildly hypermetabolic focus within the right posterior T9 vertebral body, not definitively exceeding background hepatic activity. Development of focal hypermetabolism involving the posteromedial left iliac bone. Remainder of marrow no exceeds background marrow activity either diffusely or focally. Other/Extranodal: Persistent mild ill-defined right upper lobe opacities which remain too small to characterize. Development of 2 small nodular hypermetabolic left paravertebral nodular foci within the left lumbosacral fossa at the L5 level demonstrates a maximum SUV of 7.3, moderately greater than background hepatic activity. Focal uptake at the rectosigmoid colon was not discretely visualized and the prior examination and likely reflects inflammation or physiologic activity rather than polyp. Additional CT Findings: Previous cement augmentation of an L1 vertebral body compression fracture deformity. Reconstruction of pathologic bilateral rib fractures. Posterior spinal fixation of the lower lumbar spine. Scattered pleural-parenchymal scarring and bibasilar atelectasis. Marked coronary artery disease. Right IJ chest port. Mild distal colonic diverticulosis. IMPRESSION 1. Decreased heterogeneous marrow hyperm etabolism. Small mildly hypermetabolic focus within the right posterior T9 vertebral body not exceeding background hepatic activity. Interval visualization of more focally intense FDG avidity along the left posterior iliac crest, likely corresponding to bone marrow biopsy site. 2. Development of two adjacent small hyp ermetabolic nodular left paravertebral foci within the lumbosacral fossa at the level of the L5 vertebral body. Findings are indeterminate and may reflect minimal residual and/or new sites of disease versus inflammatory uptake. Follow-up PET/CT recommended in 3 months (or according to clinical protocol) for reassessment. 5PS = X or 5. By my electronic signature, I attest that I have personally reviewed the images for this examination and formulated the interpretations and opinions expressed in this report Performing Organization Address City/State/[facility] Ph one Number [facility] * T SPINE 3 VIEWS (10/28/2019 11:48 AM PRINCIPAL SOLUTIONS ARCHITECT) Specimen Impressions Performed At 1. Instrumentation at T12 and extending inferiorly to the upper lumbar spine [facility] with dense vertebroplasty cement at L1 is again seen. 2. There is diffuse osteopenia. Compr essions of T7 and T9 are unchanged. Unchanged appearance of T11 with probab le subtle compression, similar to the previous examination. 3. On the swimmer's view there is sev ere multilevel disc disease in the cervical spine again noted. Finalized by Mauro Haley M.D. on 2019 1:27 PM. Dictated by Mauro Haley M.D. on 10/28/2019 1:22 PM. Narrative Performed At Exam: T SPINE 3 VIEWS [facility] CLINICAL INDICATION: 59 years Male back pain, DLBCL with previous spinal mets COMPARISON: August 18, 2019. Procedure Note Interface, Radiant Results - 10/28/2019 1:30 PM PRINCIPAL SOLUTIONS ARCHITECT Exam: T SPINE 3 VIEWS CLINICAL INDICATION: 59 years Male back pain, DLBCL with previous spinal mets COMPARISON: August 18, 2019. IMPRESSION 1. Instrumentation at T12 and extending inferiorly to the upper lumbar spine with dense vertebroplasty cement at L1 is again seen. 2. There is diffuse osteopenia. Sarah sions of T7 and T9 are unchanged. Unchanged appearance of T11 with probable subtle compression, similar to the previous examination. 3. On the swimmer's view there is sever e multilevel disc disease in the cervical spine again noted. Finalized by Mauro Haley M.D. on 10/28/2019 1:27 PM. Dictated by Mauro Haley M.D. on 10/28/2019 1:22 PM. Performing Organization Address City/State/Zipcode Ph one Number [facility] * L SPINE AP & LATERAL (10/28/2019 11:48 AM PRINCIPAL SOLUTIONS ARCHITECT) Specimen Impressions Performed At 1. Posterior rotation T12-L2 with compression fract ure deformity and [facility] vertebroplasty cement of L1 is similar to the previous examination. 2. Question of slight wedging of L2 u nchanged from prior study. Mild compression superior of the endplate of L4 is unchanged. No new compressions identified. 3. Trace grade 1 anterolisthesis at L 5-S1 is unchanged. 4. Multilevel disc disease with mild to moderate disc space narrowing and mild spurring is unchanged from prior study. Finalized by Mauro Haley M.D. on 2019 1:31 PM. Dictated by Mauro Haley M.D. on 10/28/2019 1:29 PM. Narrative Performed At Exam: L SPINE AP & LATERAL [facility] CLINICAL INDICATION: 59 years Male back pain, DLBCL with previous spinal mets COMPARISON: August 18, 2019. Procedure Note Interface, Radiant Results - 10/28/2019 1:34 PM PRINCIPAL SOLUTIONS ARCHITECT Exam: L SPINE AP & LATERAL CLINICAL INDICATION: 59 years Male back pain, DLBCL with previous spinal mets COMPARISON: August 18, 2019. IMPRESSION 1. Posterior rotation T12-L2 with compr ession fracture deformity and vertebroplasty cement of L1 is similar to the previous examination. 2. Question of slight wedging of L2 unc hanged from prior study. Mild compression superior of the endplate of L4 is unchanged. No new compressions identified. 3. Trace grade 1 anterolisthesis at L5- S1 is unchanged. 4. Multilevel disc disease with mild to moderate disc space narrowing and mild spurring is unchanged from prior study. Finalized by Mauro Haley M.D. on 10/28/2019 1:31 PM. Dictated by Mauro Haley M.D. on 10/28/2019 1:29 PM. 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 needed 11/13/2019 7:58 PM Full Code 11/11/2019 1:35 PM Provider has discussed Code Status No, more discussi on w/Patient or Family? needed 06/11/2019 2:37 PM Full Code 06/06/2019 7:59 AM Provider has discussed Code Status Yes w/Patient or Family? 06/06/2019 7:59 AM Full Code 06/05/2019 3:54 PM Provider has discussed Code Status No, more discussi on w/Patient or Family? needed 05/26/2019 2:35 PM Full Code 05/21/2019 7:52 PM Provider has discussed Code Status Yes w/Patient or Family?
--- OUTSIDE RECORDS SUMMARY | 2019-12-07 05:00 | XMS REPORT | Encounter Summary ---
[facility] Address Unknown Phone Unavailable Care Team Providers Care Clinical Application Consultant Name Role Phone Bertin Cole DO PCP Madison [place] [id number] Shira Castanon MD 100 Reason for Visit * Auth/Cert Referred By Contact Referred To Contact Status Reason Specialty Diagnoses / Procedures Diagnoses DLBCL (diffuse large B cell lymphoma) (HCC) DLBCL Encounter Details Care Team Description Date Type Department Male, Monica Vega MD [address] [facility] [address] [place], [place] [id number] Eliecer Novak MD [address] [place], [place] [id number] DLBCL (diffuse large B cell lymphoma) (H CC) 11/25/2019 [facility] 11/28/[address] [place] [address] Social History Date Tobacco Use Types Packs/Day Years Used Quit: 07/26/2015 Former Smoker Smokeless Tobacco: Never Used Drinks/Week oz/Week Comments Alcohol Use 2 Cans of beer 2.0 Yes Sex Assigned at Date Recorded Not on file Industry Job Start Date Occupation Not on file Not on file Not on file Travel End Travel History Travel Start No recent travel history available. documented as of this encounter Last Filed Vital Signs Reading Time Taken Comments Vital Sign 121/73 11/28/2019 11:06 AM CDT Blood Pressure 65 11/28/2019 11:06 AM CDT Pulse 36.3 C (97.4 F) 11/28/2019 11:06 AM CDT Temperature - - Respiratory Rate 98% 11/28/2019 11:06 AM CDT Oxygen Saturation - - Inhaled Oxygen Concentration 102.5 kg (225 lb 15.5 oz) 11/28/2019 4:11 AM CDT Weight 185 cm (6' 0.84") 11/26/2019 1:00 PM CDT Height 29.95 11/26/2019 1:00 PM CDT Body Mass Index documented in this encounter Functional Status Date of Assessment Functional Status Response 11/25/2019 Does the patient have a hearing impairment: No 05/19/2019 Does the patient have a visual impairment: Yes documented as of this encounter Discharge Summaries * Jamshid Contreras MD - 11/28/2019 1:01 PM CDT Physician Discharge Summary Name: Refugio Lopez Date Of : 1960 Age: 59 years Admit date: 11/25/2019 Discharge date: 11/28/2019 Attending Physician: Dr. Ceuva Service: Hematology Physician Summary completed by: Jamshid Contreras MD Reason for hospitalization: Chemotherapy Significant PMH: Medical History: Diagnosis Date Back pain CAD (coronary artery disease) Cardiomyopathy (HCC) Chronic hepatitis C (HCC) DM (diabetes mellitus) (HCC) Essential hypertension GERD (gastroesophageal reflux disease) Multiple myeloma and immunoproliferative neoplasms (HCC) Allergies: Patient has no known allergies. Admission Physical Exam notable for: General Appearance: appears as stated age, no distress Skin: no ulcers or xanthomata Eyes: conjunctivae and lids normal, pupils are equal and round Teeth/Gums/Palate: dentition unremarkable, no lesions Chest auscultation/Percussion: lungs clear to auscultation Cardiac Auscultation: S1, S2 present, no rub, no S3 gallop, no S4 gallop, no mur mur Lower Extremity: no lower extremity edema Abdominal Exam: soft, non-tender, no masses, bowel sounds normal, nohepatospleno megaly Neurologic Exam: neurological assessment grossly intact and moves all extremitie s Right chest tunneled CVC Admission Lab/Radiology studies notable for: Hgb 12.4, WBC 3.9, Plt 198, phos 5.5 Brief Hospital Course: Refugio So is a 59 yr old male w/ PMH of DM Type II, cardiomyopathy, CAD s/p CARLY x2 05/15/19 and 2014, DVT and possible massive PE 05/14 s/p catheter directed TPA, chronic hepatitis C s/p curative treatment, HTN, DLBCL w/ bulky spinal cord involvement s/p laminectomy and arthrodesis on 04/26 who is admitted for for R-DHAP day 1 on 11/26/2019. Patient received pre-treatment MRI and Echocardiogram. MRI showed no brain invol vement from his DLBCL. Echocardiogram showed improvement of EF from 30% to 45-50 % since his last echo on 06/08/2019. He tolerated chemotherapy well, including IT methotrexate on 11/26. Tap was traumatic but showed no signs of DLBCL in his cer ebrospinal fluid. His only complaint was throughout treatment mild nausea. Upon conclusion of chemotherapy, he was discharged on 11/27 with prescriptions for flu conazole, acyclovir, bactrim and levaquin for prophylaxis. His platelets were 15 4 on day of discharge so his apixaban and plavix were continued. He will need bi weekly labs in order to monitor for thrombocytopenia and need to discontinue the se medications. He was discharged home in stable condition with instructions to see Dr. Jiang on Wednesday 11/29 for neulasta and rituximab. Condition at Discharge: Stable Discharge Diagnoses: Hospital Problems Active Problems DM (diabetes mellitus) (HCC) Chronic hepatitis C (HCC) Pulmonary embolus (HCC) Heart failure with reduced ejection fraction (HCC) DLBCL (diffuse large B cell lymphoma) (HCC) Surgical Procedures: None Significant Diagnostic Studies and Procedures: Lumbar puncture with IT chemo Consults: None Patient Disposition: Home Patient instructions/medications: Activity as Tolerated It is important to keep increasing your activity level after you leave the hosp ital. Moving around can help prevent blood clots, lung infection (pneumonia) an d other problems. Gradually increasing the number of times you are up moving ar ound will help you return to your normal activity level more quickly. Continue to increase the number of times you are up to the chair and walking daily to ret urn to your normal activity level. Begin to work toward your normal activity lev el at discharge Report These Signs and Symptoms Please contact your doctor if you have any of the following symptoms: temperatu re higher than 100.4 degrees F, uncontrolled pain, persistent nausea and/or vomi ting, difficulty breathing, chest pain, severe abdominal pain, headache or unabl e to urinate Questions About Your Stay For questions or concerns regarding your hospital stay, call [phone]. Discharging attending physician: CHARITO GARCIA [[id number]] Regular Diet You have no dietary restriction. Please continue with a healthy balanced diet. Current Discharge Medication List START taking these medications Details acyclovir (ZOVIRAX) 800 mg tablet Take one tablet by mouth every 12 hours. Qty: 60 tablet, Refills: 1 PRESCRIPTION TYPE: Normal dexAMETHasone (DECADRON) 4 mg tablet Take ten tablets by mouth daily. Take on to complete course Qty: 10 tablet, Refills: 0 PRESCRIPTION TYPE: Normal Associated Diagnoses: Diffuse large B-cell lymphoma, unspecified body region (HC C) fluconazole (DIFLUCAN) 200 mg tablet Take two tablets by mouth daily. To be star ignacio when ANC < 500 (Do not start at discharge). Continue until ANC > 500. Qty: 20 tablet, Refills: 1 PRESCRIPTION TYPE: Normal levoFLOXacin (LEVAQUIN) 750 mg tablet Take one tablet by mouth daily. To be star ignacio when ANC < 500 (Do not start at discharge). Continue until ANC > 500. Qty: 10 tablet, Refills: 1 PRESCRIPTION TYPE: Normal prednisolone acetate (PRED FORTE) 1 % ophthalmic suspension Apply two drops to b oth eyes every 6 hours. Continue eye drops until 11/30. PRESCRIPTION TYPE: No Print Associated Diagnoses: Diffuse large B-cell lymphoma, unspecified body region (HC C) trimethoprim/sulfamethoxazole (BACTRIM DS) 160/800 mg tablet Take one tablet by mouth twice daily twice weekly. Take on Saturday and . Qty: 16 tablet, Refills: 1 PRESCRIPTION TYPE: Normal CONTINUE these medications which have been CHANGED or REFILLED Details apixaban (ELIQUIS) 5 mg tablet Take one tablet by mouth twice daily. Hold when p latelets are less than [address] Indications: a clot in the lung Qty: 60 tablet, Refills: 0 PRESCRIPTION TYPE: Normal CONTINUE these medications which have NOT CHANGED Details acetaminophen (TYLENOL) 325 mg tablet Take two tablets by mouth every 6 hours as needed. Max dose of 4000 mg daily Qty: 30 tablet, Refills: 0 PRESCRIPTION TYPE: Normal allopurinol (ZYLOPRIM) 300 mg tablet Take one tablet by mouth daily. Take with f ood. Qty: 90 tablet, Refills: 3 PRESCRIPTION TYPE: Normal amiodarone (CORDARONE) 200 mg tablet Take one tablet daily. Qty: 30 tablet, Refills: 1 PRESCRIPTION TYPE: Normal atorvastatin (LIPITOR) 40 mg tablet Take one tablet by mouth daily. Qty: 90 tablet, Refills: 3 PRESCRIPTION TYPE: Normal clopiDOGrel (PLAVIX) 75 mg tablet Take 75 mg by mouth daily. PRESCRIPTION TYPE: Historical Med cyclobenzaprine (FLEXERIL) 10 mg tablet Take 10 mg by mouth three times daily as needed. PRESCRIPTION TYPE: Historical Med fentaNYL (DURAGESIC) 75 mcg/hr patch Apply one patch to top of skin as directed every 72 hours Qty: 3 patch, Refills: 0 PRESCRIPTION TYPE: Print furosemide (LASIX) 20 mg tablet Take one tablet by mouth every morning. Qty: 90 tablet, Refills: 0 PRESCRIPTION TYPE: Normal gabapentin (NEURONTIN) 300 mg capsule Take 300 mg by mouth every 8 hours. PRESCRIPTION TYPE: Historical Med melatonin 5 mg tab Take one tablet by mouth at bedtime as needed. Qty: 30 tablet, Refills: 0 PRESCRIPTION TYPE: Normal metFORMIN (GLUCOPHAGE) 500 mg tablet Take 500 mg by mouth twice daily with meals . PRESCRIPTION TYPE: Historical Med metoprolol XL (TOPROL XL) 50 mg extended release tablet Take three tablets by mo uth daily. Qty: 90 tablet, Refills: 1 PRESCRIPTION TYPE: Normal Multivitamins with Fluoride (MULTI-VITAMIN PO) Take 1 tablet by mouth daily. PRESCRIPTION TYPE: Historical Med nitroglycerin (NITROSTAT) 0.[address] 0.4 mg under tongue every 5 minute s as needed for Chest Pain. Max of 3 tablets, call 911. PRESCRIPTION TYPE: Historical Med oxyCODONE (ROXICODONE) 5 mg tablet Take one tablet to two tablets by mouth every 3 hours as needed Qty: 20 tablet, Refills: 0 PRESCRIPTION TYPE: Print pantoprazole DR (PROTONIX) 40 mg tablet Take one tablet by mouth daily. Qty: 90 tablet, Refills: 1 PRESCRIPTION TYPE: Normal sacubitriL-valsartan (ENTRESTO) 24-26 mg tablet Take 1 tablet by mouth twice mirtha ly. PRESCRIPTION TYPE: Historical Med senna/docusate (SENOKOT-S) 8.6/50 mg tablet Take one tablet by mouth twice daily . Qty: 60 tablet, Refills: 0 PRESCRIPTION TYPE: Normal spironolactone (ALDACTONE) 25 mg tablet Take one tablet by mouth daily. Take wit h food. Qty: 30 tablet, Refills: 1 PRESCRIPTION TYPE: Normal Scheduled appointments: Dec 16, 2019 9:00 AM CDT (Arrive by 8:45 AM) Nurse Lab Visit with LL2 NURSE CHAIR [facility] ([facility] Exam) [address] [phone] Dec 16, 2019 10:00 AM CDT (Arrive by 9:45 AM) Return Patient with Chraito Garcia MD [facility] ([facility] Exam) [address] [phone] Dec 22, 2019 11:00 AM CDT Return Patient with Enoch Pandey MD [facility] ([facility] [place] [facility]) [address] [place] [phone] Pending items needing follow up: None; will need biweekly labs, neulasta and rit uximab on 11/29 Signed: Jamshid Contreras MD 11/28/2019 Cc: Dr. Jiang Primary Care Physician: Bertin Cole Verified Referring physicians: Bertin Cole DO Additional provider(s): Dr. Brown documented in this encounter Discharge Instructions * Patient Instructions* Sarah Ho RN - 11/27/2019 8:52 AM CDT INTERVENTIONAL RADIOLOGY DISCHARGE INSTRUCTIONS LUMBAR PUNCTURE A lumbar puncture is a procedure in which a needle is carefully inserted into th e spinal canal in the lower portion of your back (the lumbar area). A small am ount of cerebrospinal fluid (CSF) is collected followed by removal of the needle . CSF is a clear fluid that surrounds the brain and spinal cord and helps prot ect them from injury. The collected fluid is then used for specific lab tests ordered by your physician. In some instances, the pressure of the CSF may also be measured during the procedure. POST-PROCEDURE ACTIVITY: A responsible adult must drive you home. If you receive sedation or ane sthesia for the procedure, you should not drive or operate heavy machinery or do anything that requires concentration for at least 24 hours after receiving eliz tion or anesthesia. It is recommended that a responsible adult be with you until morning. You should rest for 6-8 hours after the procedure with your head at about a 3 0-45?angle. If you develop a spinal headache, lie flat for 6-8 hours. A spinal headache is caused by a CSF leak; you would typically have greater pain when you are up and less pain when lying flat. You may plan to resume normal activity tomorrow. POST-PROCEDURE SITE CARE: You will have a small bandage over the site. Keep this dry. You may remov e it in 24 hours. You may shower in 24 hours, after removing the bandage. Do not submerge the site underwater for several days until fully healed (no t ub bath, swimming/hot tub, etc.) Be sure your hands are clean when touching near the site. Do not use ointments, creams or powders on the puncture site. DIET/MEDICATIONS: You may resume your previous diet after the procedure. If you receive sedation or narcotic pain medications, avoid any foods or beve rages containing alcohol for at least 24 hours after the procedure. Please see the Medication Reconciliation sheet for instructions regarding res uming your home medications. Keep well-hydrated; you are encouraged to drink plenty of caffeinated fluids as this can help to prevent a spinal headache. CALL THE DOCTOR IF: Bright red blood has soaked the bandage. You have pain not relieved by medication. Some soreness at the site is to b e expected. You have signs of infection such as: Chills, body aches, fever greater than 1 01F, redness, swelling or warmth at the puncture site. You have an uncontrolled headache. For any of the above symptoms or for problems or concerns related to the procedu re, call [phone] for Saturday-Saturday 7-5. After-hours and weekends, ple ase call [phone] and ask for the Interventional Structural Iron Erector on-ermelinda corazon. documented in this encounter Medications at Time of Discharge Start Date End Date Medication Sig Dispensed Refills 05/03/2019 acetaminophen (TYLENOL) Take two 30 tablet 0 325 mg tablet tablets by mouth every 6 hours as needed. Max dose of 4000 mg daily 11/28/2019 acyclovir (ZOVIRAX) 800 Take one 60 tablet 1 mg tablet tablet by mouth every 12 hours. 05/03/2019 allopurinol (ZYLOPRIM) Take one 90 tablet 3 300 mg tablet tablet by mouth daily. Take with food. 11/13/2019 amiodarone (CORDARONE) Take one 30 tablet 1 200 mg tablet tablet daily. 11/28/2019 apixaban (ELIQUIS) 5 mg Take one 60 tablet 0 tabletIndications: tablet by pulmonary thromboembolism mouth twice daily. Hold when platelets are less than [address] Indications: a clot in the lung 05/26/2019 atorvastatin (LIPITOR) 40 Take one 90 tablet 3 mg tablet tablet by mouth daily. clopiDOGrel (PLAVIX) 75 Take 75 mg by 0 mg tablet mouth daily. cyclobenzaprine Take 10 mg by 0 (FLEXERIL) 10 mg tablet mouth three times daily as needed. 11/29/2019 dexAMETHasone (DECADRON) Take ten 10 tablet 0 4 mg tabletIndications: tablets by Diffuse large B-cell mouth daily. lymphoma, unspecified Take on 11/28 body region (HCC) to complete course 11/13/2019 fentaNYL (DURAGESIC) 75 Apply one 3 patch 0 mcg/hr patch patch to top of skin as directed every 72 hours 11/28/2019 fluconazole (DIFLUCAN) Take two 20 tablet 1 200 mg tablet tablets by mouth daily. To be started when ANC < 500 (Do not start at discharge). Continue until ANC > 500. 11/13/2019 furosemide (LASIX) 20 mg Take one 90 tablet 0 tablet tablet by mouth every morning. gabapentin (NEURONTIN) Take 300 mg 0 300 mg capsule by mouth every 8 hours. 11/28/2019 levoFLOXacin (LEVAQUIN) Take one 10 tablet 1 750 mg tablet tablet by mouth daily. To be started when ANC < 500 (Do not start at discharge). Continue until ANC > 500. 11/13/2019 melatonin 5 mg tab Take one 30 tablet 0 tablet by mouth at bedtime as needed. metFORMIN (GLUCOPHAGE) Take 500 mg 0 500 mg tablet by mouth twice daily with meals. 06/11/2019 metoprolol XL (TOPROL XL) Take three 90 tablet 1 50 mg extended release tablets by tablet mouth daily. Multivitamins with Take 1 tablet 0 Fluoride (MULTI-VITAMIN by mouth PO) daily. nitroglycerin (NITROSTAT) Place 0.4 mg 0 0.4 mg tablet under tongue every 5 minutes as needed for Chest Pain. Max of 3 tablets, call 911. 11/13/2019 oxyCODONE (ROXICODONE) 5 Take one 20 tablet 0 mg tablet tablet to two tablets by mouth every 3 hours as needed 06/17/[address] Take one 90 tablet 1 (PROTONIX) 40 mg tablet tablet by mouth daily. 11/28/2019 prednisolone acetate Apply two 0 (PRED FORTE) 1 % drops to both ophthalmic eyes every 6 suspensionIndications: hours. Diffuse large B-cell Continue eye lymphoma, unspecified drops until body region (HCC) 11/30. sacubitriL-valsartan Take 1 tablet 0 (ENTRESTO) 24-26 mg by mouth tablet twice daily. 05/03/2019 senna/docusate Take one 60 tablet 0 (SENOKOT-S) 8.6/50 mg tablet by tablet mouth twice daily. 06/11/2019 spironolactone Take one 30 tablet 1 (ALDACTONE) 25 mg tablet tablet by mouth daily. Take with food. 11/30/2019 trimethoprim/sulfamethoxa Take one 16 tablet 1 zole (BACTRIM DS) 160/800 tablet by mg tablet mouth twice daily twice weekly. Take on Saturday and . documented as of this encounter Progress Notes * Rufus, 'Ed, YUNBS - 11/28/2019 1:01 PM CDT General Progress Note Name: Refugio Lopez Today's Date: 11/28/2019 Admission Date: 11/25/2019 LOS: 3 days Assessment/Plan: Active Problems: DM (diabetes mellitus) (HCC) Chronic hepatitis C (HCC) Pulmonary embolus (HCC) Heart failure with reduced ejection fraction (HCC) DLBCL (diffuse large B cell lymphoma) (HCC) Refugio So is a 59 yr old male w/ PMH of DM Type II, cardiomyopathy, CAD s/p CARLY x2 05/15/19 and 2014, DVT and possible massive PE 05/14 s/p catheter direc ignacio TPA, chronic hepatitis C s/p curative treatment, HTN, DLBCL w/ bulky spinal cord involvement s/p laminectomy and arthrodesis on 04/26 who is admitted for fo r R-DHAP day 1 on 11/26/2019 Interval Changes 11/25: No brain involvement with MRI. His Echo showed improving EF. Started day 1 of R-DHAP today. 11/26: Day 2 of Cycle 1 R-DHAP. He got IT methotrexate. 11/27: Day 3 of cycle 1 of 1 R-DHAP. Patient tolerates chemo well with no compla ints today. Plan for discharge on acyclovir and Bactrim prophylaxis. Fluconazo le and levofloxacin to be started when ANC is less than 500. Hold Eliquis after discharge if platelets less than 50. DLBCL withBulkySpinal Involvements/p Laminectomy and Decompression and Art hrodesis -patient of Dr. Cueva - Progressive back pain since September 2018. Found to have partial compression fr actures and multiple vertebral bones and was put on dexamethasone for pain contr ol. - BMBx 04/14 demonstrated Diffuse Large B Cell Lymphoma -PET CT scan04/24/2019was performed and it showed innumerable intensity FDG lesions throughout the osseous structures and multiple ribs, dorsal vertebra, sa noel and pelvic bones in addition to the long bones. -MRI T spine 04/24 -Diffuse abnormal marrow signal thoracic spine compatible w ith known osseous involvement by lymphoma. No abnormal cord signal. -MRI L spine 04/24 - Marked L1 compression deformity status post cementaugment ation.Marked extraosseous extension of tumor at this level which in combinatio n with retropulsed fragments result in severe central spinal stenosis at the lev el of the conus and proximal cauda equina. Findings could produce symptoms of ca uda equina syndrome. -Patient had an urgent surgery 04/26 with T12-L2 decompression and fusion compl icated by dural leak - Pathology, "epidural tumor", T12-L2 laminectomy: Diffuse large B-cell lymphoma , germinal center type, with necrosis - s/p R-COEP x6 -PET 11/11/2019 concerning for hypermetabolic lesions on left illiac bone, new pa raspinal lesions around L5. CT did not have correlation. -Admission to [facility] 11/11/2019 for MRI characterization of lesions and possible biop sy. Hold on planned high dose systemic methotrexate -MRI: verbal communication w/ radiologist that there are lesions concerning for lymphoma. Pt to go for biopsy today. -S/pbone biopsy on 11/12/2019.Flowcytometry negative. L4 prelim report nega tive. T9 biopsy sent for lymphoma staining. - MRI brain showed no disease involvement Plan > Plan for discharge on acyclovir and Bactrim prophylaxis. Fluconazole and levofloxacin to be started when ANC is less than 500. Hold Eliquis after discharge if platelets less than 50. > continue Allopurinol 300mg QDay > Fenatyl [id number] Q72h > Gabapentin 300mg Q8h >Zofran 4mg PO Q8 prn > IT chemo 11/26. RBC around 6000, WBC 2, protein 81. Follow-up on cytology and flow cytometry as outpatient. ParoxsymalAfib - Reported ED visit for A fib in 2014 following NSTEMI and CARLY. Was reportedly o n anticoagulation until earlier this year -Hospitalization 05/14-05/18 for Afib with RVR among others. Discharged with Meto prolol and diltiazem - Follows with Dr. Ayesha Vega Plan > Continue PTAamiodarone 200mg QDay, metoprolol > Continue Eliquis for now. Plan to hold when platelets less than 50. CAD s/p CARLY 05/15/19 Heart Failure with Recovered Ejection Fraction HLD HTN -CARLY placed in 2014 -CARLY placed 05/15/19.Patient had CP and mild elevation in troponin following ca theter directed thrombolysis, but no mention of an EKGor luminal abnormalities on angiogram -Echo 11/25 EF EF 45-50%, grade 1 diastolic dysfunction, LV less dilated with imp roved rejection fraction compared to 06/08/2019 echo. > Resume Lasix at discharge > Contractility: Metoprolol XL 150mg QDay > Afterload: SERVICE CLERK Entresto, Spironolactone 25mg QDay >Entresto >PTALipitor 40 mg qd >SERVICE CLERK plavix - will continue to monitor platelets and potential need to d/c Hx ofDVT/PE - Hospitalized for syncopal event at [facility] 05/14-05/18. CTA demons trated "extensive bilateral pulmonary emboli." Because patient was hypotensive, he was taken to interventional cardiology who performed catheter directed thromb olysis with TPA -No signs of right heart failure on right heart cath. Discharged on 5 mg Eliquis BID Plan: > Restart eliquis 5mg BID. Plan to hold when platelets less than 50 DMTypeII -SERVICE CLERK [id number] > LDCF, Monitor glucose HCV -S/p treatment in 2015 Sleep >SERVICE CLERK Zolpidem 10mg qHS FEN: No IVF, Lytes PRN, NPO PPx: Holding SERVICE CLERK Apixaban 5 Dispodischarge home. Plan to follow-up with Dr. Jiang on day 6, Saturday, 11/14 for rituximab and Neulasta Code:Full Patient discussed with Dr. GARCIA Subjective Refugio Lopez is a 59 y.o. male. No acute events overnight. Denies nausea, vomiting, diarrhea, abdominal pain. No lower extremity swelling or shortness of breath. Medications Scheduled Meds:allopurinoL (ZYLOPRIM) tablet 300 mg, 300 mg, Oral, QDAY amiodarone (CORDARONE) tablet 200 mg, 200 mg, Oral, QDAY apixaban (ELIQUIS) tablet 5 mg, 5 mg, Oral, BID atorvastatin (LIPITOR) tablet 40 mg, 40 mg, Oral, QDAY clopiDOGrel (PLAVIX) tablet 75 mg, 75 mg, Oral, QDAY dexAMETHasone (DECADRON) tablet 40 mg, 40 mg, Oral, QDAY fentaNYL (DURAGESIC) 75 mcg/hr patch 1 patch, 1 patch, Transdermal, Q72H* gabapentin (NEURONTIN) capsule 300 mg, 300 mg, Oral, Q8H* insulin aspart U-100 (NOVOLOG FLEXPEN) injection PEN 0-6 Units, 0-6 Units, Subcu taneous, ACHS (22) metoprolol XL (TOPROL XL) tablet 150 mg, 150 mg, Oral, QDAY pantoprazole DR (PROTONIX) tablet 40 mg, 40 mg, Oral, QDAY prednisolone acetate (PRED FORTE) 1 % ophthalmic suspension 2 drop, 2 drop, Both Eyes, Q6H* sacubitriL-valsartan (ENTRESTO) 24-26 mg tablet 1 tablet, 1 tablet, Oral, BID senna/docusate (SENOKOT-S) tablet 1 tablet, 1 tablet, Oral, BID spironolactone (ALDACTONE) tablet 25 mg, 25 mg, Oral, QDAY Continuous Infusions: sodium chloride 0.9 % infusion 100 mL/hr at 11/28/19 0421 PRN and Respiratory Meds:alteplase PRN ([employer] from Rx), cyclobenzaprine TID [place] N, melatonin QHS PRN, oxyCODONE Q3H PRN, sodium chloride 0.9 % TKO infusion PRN, sodium chloride 0.9% irrigation bottle PRN Review of Systems: A 14 point review of systems was negative except points mentioned in subjective Objective: Vital Signs: Last Filed Vital Signs: 24 Devan r Range BP: 121/73 (11/27 1106) Temp: 36.3 C (97.4 F) (11/27 1106) Pulse: 65 (11/27 1106) Respirations: 18 PER MINUTE (11/27 1106) SpO2: 98 % (11/27 1106) BP: (119-134)/(67-86) Temp: [36.3 C (97.4 F)-37 C (98.6 F)] Pulse: [57-79] Respirations: [18 PER MINUTE] SpO2: [93 %-100 %] Intensity Pain Scale (Self Report): 7 (11/28/19 0835) Vitals: 11/26/19 1300 11/27/19 0510 11/28/19 0411 Weight: 99.3 kg (219 lb) 100.6 kg (221 lb 12.8 oz) 102.5 kg (225 lb 15.5 oz) Intake/Output Summary: (Last 24 hours) Intake/Output Summary (Last 24 hours) at 11/28/2019 1435 Last data filed at 11/28/2019 0844 Gross per 24 hour Intake 1080 ml Output 3900 ml Net -2820 ml Stool Occurrence: 0 Physical Exam General Appearance: appears as stated age, no distress Skin: no ulcers or xanthomata Eyes: conjunctivae and lids normal, pupils are equal and round Teeth/Gums/Palate: dentition unremarkable, no lesions Chest auscultation/Percussion: lungs clear to auscultation Cardiac Auscultation: S1, S2 present, no rub, no S3 gallop, no S4 gallop, no mur mur Lower Extremity: no lower extremity edema Abdominal Exam: soft, non-tender, no masses, bowel sounds normal, nohepatospleno megaly Neurologic Exam: neurological assessment grossly intact and moves all extremitie s Port site without evidence of infection Lab Review Pertinent labs reviewed Point of Care Testing (Last 24 hours) Glucose: (!) 217 (11/28/19 0428) POC Glucose (Download): (!) 241 (11/28/19 0816) Radiology and other Diagnostics Review: Pertinent radiology reviewed. Ra'Ed XENA Lieberman Associated attestation - Charito Garcia MD - 11/28/2019 7:55 PM CDT ATTESTATION I have personally performed a history and physical exam on the patient. I have discussed the case with the resident and concur with the resident documentation of history, physical exam, assessment, and treatment plan. Notations made by myself are in blue and in italics. Staff name: Charito Garcia MD Date: 11/28/2019 * Kirsty Tolliver RN - 11/28/2019 7:31 AM CDT .CHEMO NOTE Verified chemo consent signed and in chart. Verified initiate chemo order in O2 Blood return positive via: Port (Single), right BSA and dose double checked (agree with orders as written) with: yes Madison Short chemotherapy certified RN Labs/applicable tests checked: CBC and Comprehensive Metabolic Panel (CMP), sign ature log signed prior to chemo administration Chemo regime: Drug/cycle/day IP/OP HEME R-DHAP C1D2 dose 2 cytarabine (CYTOSAR) 4,560 mg in sodium chloride 0.9% (NS) 295.6 mL IVPB(C100) : Ordered Dose 2 g/m2 2.28 m2 (Treatment Plan Recorded) : Admin Dose 4,560 mg : 98.5 mL/hr : Intravenous Rate verified and armband double checkwith second RN: yes Patient education offered and stated understanding. Denies questions at this selma e. * Rosalia Guevara RN - 11/27/2019 6:33 PM CDT ..CHEMO NOTE Verified chemo consent signed and in chart. Verified initiate chemo order in O2 Blood return positive via: Right port. BSA and dose double checked (agree with orders as written) with: Elza Arroyo RN Labs/applicable tests checked: CBC, Chem 7, signature log Chemo regime: C1D2 R-DHAP cytarabine (CYTOSAR) 4,560 mg in sodium chloride 0.9% (NS) 295.6 mL IVPB(C100) @ 98.5ml/hr Rate verified and armband double checkwith second RN: Rakesh Wallace RN Patient education offered and stated understanding. Denies questions at this selma e. * Jamshid Contreras MD - 11/27/2019 6:17 AM CDT General Progress Note Name: Refugio Lopez Today's Date: 11/27/2019 Admission Date: 11/25/2019 LOS: 2 days Assessment/Plan: Active Problems: DM (diabetes mellitus) (HCC) Chronic hepatitis C (HCC) Pulmonary embolus (HCC) Heart failure with reduced ejection fraction (HCC) DLBCL (diffuse large B cell lymphoma) (HCC) Refugio So is a 59 yr old male w/ PMH of DM Type II, cardiomyopathy, CAD s/p CARLY x2 05/15/19 and 2014, DVT and possible massive PE 05/14 s/p catheter direc ignacio TPA, chronic hepatitis C s/p curative treatment, HTN, DLBCL w/ bulky spinal cord involvement s/p laminectomy and arthrodesis on 04/26 who is admitted for fo r R-DHAP day 1 on 11/26/2019 Interval Changes 11/25: No brain involvement with MRI. His Echo showed improving EF. Started day 1 of R-DHAP today. 11/26: Day 2 of Cycle 1 R-DHAP. He got IT methotrexate. 45mg oxycodone with 75mcg fentanyl patch V: WNL Labs: CBC: 11.5: Awaiting anc, chemistry nml except elevated fasting glucose Follow ANC Continue chemotherapy DLBCL withBulkySpinal Involvements/p Laminectomy and Decompression and Art hrodesis -patient of Dr. Cueva - Progressive back pain since September 2018. Found to have partial compression fr actures and multiple vertebral bones and was put on dexamethasone for pain contr ol. - BMBx 04/14 demonstrated Diffuse Large B Cell Lymphoma -PET CT scan04/24/2019was performed and it showed innumerable intensity FDG lesions throughout the osseous structures and multiple ribs, dorsal vertebra, sa noel and pelvic bones in addition to the long bones. -MRI T spine 04/24 -Diffuse abnormal marrow signal thoracic spine compatible w ith known osseous involvement by lymphoma. No abnormal cord signal. -MRI L spine 04/24 - Marked L1 compression deformity status post cementaugment ation.Marked extraosseous extension of tumor at this level which in combinatio n with retropulsed fragments result in severe central spinal stenosis at the lev el of the conus and proximal cauda equina. Findings could produce symptoms of ca uda equina syndrome. -Patient had an urgent surgery 04/26 with T12-L2 decompression and fusion compl icated by dural leak - Pathology, "epidural tumor", T12-L2 laminectomy: Diffuse large B-cell lymphoma , germinal center type, with necrosis - s/p R-COEP x6 -PET 11/11/2019 concerning for hypermetabolic lesions on left illiac bone, new pa raspinal lesions around L5. CT did not have correlation. -Admission to [facility] 11/11/2019 for MRI characterization of lesions and possible biop sy. Hold on planned high dose systemic methotrexate -MRI: verbal communication w/ radiologist that there are lesions concerning for lymphoma. Pt to go for biopsy today. -S/pbone biopsy on 11/12/2019.Flowcytometry negative. L4 prelim report nega tive. T9 biopsy sent for lymphoma staining. - MRI brain showed no disease involvement Plan > PPx: Acyclovir 400mg BID > continue Allopurinol 300mg QDay > Fenatyl [id number]/hr Q72h > Gabapentin 300mg Q8h >Zofran 4mg PO Q8 prn > IT chemo 11/26 > Continue R-DHAP day 1 on 11/26/2019 ParoxsymalAfib - Reported ED visit for A fib in 2014 following NSTEMI and CARLY. Was reportedly o n anticoagulation until earlier this year -Hospitalization 05/14-05/18 for Afib with RVR among others. Discharged with Meto prolol and diltiazem - Follows with Dr. Ayesha Vega Plan > Continue PTAamiodarone 200mg QDay, metoprolol > Hold eliquis for IT chemo- Will need to restart 11/26 - CAD s/p CARLY 05/15/19 Heart Failure with Recovered Ejection Fraction HLD HTN -CARLY placed in 2014 -CARLY placed 05/15/19.Patient had CP and mild elevation in troponin following ca theter directed thrombolysis, but no mention of an EKGor luminal abnormalities on angiogram -Echo 11/25 EF EF 45-50%, grade 1 diastolic dysfunction, LV less dilated with imp roved rejection fraction compared to 06/08/2019 echo. > Lasix dose was decreased to 20 mg p.o. daily due to orthostatic blood pressure changes. Holding for now. Monitor daily weights > Contractility: Metoprolol XL 150mg QDay > Afterload: SERVICE CLERK Entresto, Spironolactone 25mg QDay >Entresto >PTALipitor 40 mg qd >SERVICE CLERK plavix - will continue to monitor platelets and potential need to d/c Hx ofDVT/PE - Hospitalized for syncopal event at [facility] [address] 05/14-05/18. CTA demons trated "extensive bilateral pulmonary emboli." Because patient was hypotensive, he was taken to interventional cardiology who performed catheter directed thromb olysis with TPA -No signs of right heart failure on right heart cath. Discharged on 5 mg Eliquis BID Plan: > Restart eliquis 5mg BID DMTypeII -SERVICE CLERK [id number] > LDCF, Monitor glucose HCV -S/p treatment in 2015 Sleep >SERVICE CLERK Zolpidem 10mg qHS FEN: No IVF, Lytes PRN, NPO PPx: Holding SERVICE CLERK Apixaban 5 DispoDischarge patient planned for 11/27 Code:Full Patient discussed with Dr. Nash Contreras Internal Medicine Resident PGY1 Pager [phone] Subjective Refugio Lopez is a 59 y.o. male. RICHARD overnight. Mild nausea with chemo. He d enies CP, SOB, hematochezia, melena, lower extremity swelling. Medications Scheduled Meds:allopurinoL (ZYLOPRIM) tablet 300 mg, 300 mg, Oral, QDAY amiodarone (CORDARONE) tablet 200 mg, 200 mg, Oral, QDAY atorvastatin (LIPITOR) tablet 40 mg, 40 mg, Oral, QDAY CISplatin (PLATINOL) 228 mg in sodium chloride 0.9% (NS) 478 mL IVPB, 100 mg/m2 (Treatment Plan Recorded), Intravenous, ONCE clopiDOGrel (PLAVIX) tablet 75 mg, 75 mg, Oral, QDAY cytarabine (CYTOSAR) 4,560 mg in sodium chloride 0.9% (NS) 295.6 mL IVPB(C100), 2 g/m2 (Treatment Plan Recorded), Intravenous, Q12H* dexAMETHasone (DECADRON) tablet 40 mg, 40 mg, Oral, QDAY fentaNYL (DURAGESIC) 75 mcg/hr patch 1 patch, 1 patch, Transdermal, Q72H* gabapentin (NEURONTIN) capsule 300 mg, 300 mg, Oral, Q8H* insulin aspart U-100 (NOVOLOG FLEXPEN) injection PEN 0-6 Units, 0-6 Units, Subcu taneous, ACHS (22) LORazepam (ATIVAN) tablet 0.5 mg, 0.5 mg, Oral, ONCE methotrexate PF 12 mg in sodium chloride PF 0.9% 5 mL IT syringe, 12 mg, Intrath ecal, ONCE metoprolol XL (TOPROL XL) tablet 150 mg, 150 mg, Oral, QDAY ondansetron (ZOFRAN) tablet 16 mg, 16 mg, Oral, Q24H* pantoprazole DR (PROTONIX) tablet 40 mg, 40 mg, Oral, QDAY prednisolone acetate (PRED FORTE) 1 % ophthalmic suspension 2 drop, 2 drop, Both Eyes, Q6H* sacubitriL-valsartan (ENTRESTO) 24-26 mg tablet 1 tablet, 1 tablet, Oral, BID senna/docusate (SENOKOT-S) tablet 1 tablet, 1 tablet, Oral, BID sodium chloride 0.9% (NS) 1,000 mL with potassium chloride 20 mEq, magnesium sul fate 2 g IV infusion, , Intravenous, ONCE spironolactone (ALDACTONE) tablet 25 mg, 25 mg, Oral, QDAY Continuous Infusions: sodium chloride 0.9 % infusion 100 mL/hr at 11/26/19 2252 PRN and Respiratory Meds:alteplase PRN (Veterans[employer] Coordinator from Rx), cyclobenzaprine TID [place] N, melatonin QHS PRN, oxyCODONE Q3H PRN, sodium chloride 0.9 % TKO infusion PRN, sodium chloride 0.9% irrigation bottle PRN Review of Systems: A 14 point review of systems was negative Objective: Vital Signs: Last Filed Vital Signs: 24 Devan r Range BP: 137/82 (11/26 509) Temp: 36.5 C (97.7 F) (11/26 509) Pulse: 77 (11/26 509) Respirations: 18 PER MINUTE (11/26 509) SpO2: 94 % (11/26 509) Height: 185 cm (72.84") (11/25 1299) BP: (94-137)/(62-82) Temp: [36.3 C (97.4 F)-36.9 C (98.5 F)] Pulse: [62-90] Respirations: [16 PER MINUTE-22 PER MINUTE] SpO2: [93 %-97 %] Intensity Pain Scale (Self Report): 6 (11/26/192137) Vitals: 11/26/19 0407 11/26/19 1300 11/27/19 0510 Weight: 99.3 kg (219 lb) 99.3 kg (219 lb) 100.6 kg (221 lb 12.8 oz) Intake/Output Summary: (Last 24 hours) Intake/Output Summary (Last 24 hours) at 11/27/2019 0618 Last data filed at 11/27/2019 0510 Gross per 24 hour Intake 2872 ml Output 3500 ml Net -628 ml Physical Exam General appearance: alert, well-developed, well-nourished and cooperative Eyes: conjunctivae/corneas clear. PERRL, EOM's intact. Fundi benign Neck: supple, symmetrical, trachea midline and thyroid: not enlarged, symmetric, no tenderness/mass/nodules Lungs: clear to auscultation bilaterally Heart: regular rate and rhythm, S1, S2 normal, no murmur, click, rub or gallop Abdomen: soft, non-tender. Bowel sounds normal. No masses, no organomegaly Extremities: extremities normal, atraumatic, no cyanosis or edema Neurologic: Grossly normal Peripheral pulses: 2+ and symmetric Lab Review Pertinent labs reviewed Point of Care Testing (Last 24 hours) Glucose: (!) 223 (11/27/19 0506) POC Glucose (Download): (!) 265 (11/26/19 2131) Radiology and other Diagnostics Review: Pertinent radiology reviewed. Jamshid Contreras MD Pager [phone] Associated attestation - Eliecer Novak MD - 11/27/2019 8:24 PM CDT ATTESTATION I personally performed the lewis portions of the E/M visit, discussed case with re sident and concur with resident documentation of history, physical exam, assessm ent, and treatment plan unless otherwise noted. Eliecer Novak [phone] * Rosalia Guevara RN - 11/26/2019 3:54 PM CDT CHEMO NOTE Verified chemo consent signed and in chart. Verified initiate chemo order in O2 Blood return positive via: Port (Single) BSA and dose double checked (agree with orders as written) with: yes Anna Grace RN Labs/applicable tests checked: Comprehensive Metabolic Panel (CMP) Chemo regime: C1D1 CISplatin (PLATINOL) 228 mg in sodium chloride 0.9% (NS) 478 mL IVPB Rate verified and armband double checkwith second RN: yes Patient education offered and stated understanding. Denies questions at this selma e. * Jamshid Contreras MD - 11/26/2019 7:40 AM CDT General Progress Note Name: Refugio Lopez Today's Date: 11/26/2019 Admission Date: 11/25/2019 LOS: 1 day Assessment/Plan: Active Problems: DM (diabetes mellitus) (HCC) Chronic hepatitis C (HCC) Pulmonary embolus (HCC) Heart failure with reduced ejection fraction (HCC) DLBCL (diffuse large B cell lymphoma) (HCC) Refugio So is a 59 yr old male w/ PMH of DM Type II, cardiomyopathy, CAD s/p CARLY x2 05/15/19 and 2014, DVT and possible massive PE 05/14 s/p catheter direc ignacio TPA, chronic hepatitis C s/p curative treatment, HTN, DLBCL w/ bulky spinal cord involvement s/p laminectomy and arthrodesis on 04/26 who is admitted for fo r R-DHAP day 1 on 11/26/2019 Interval Changes 11/25: No brain involvement with MRI. His Echo showed improving EF. Started day 1 of R-DHAP today. DLBCL withBulkySpinal Involvements/p Laminectomy and Decompression and Art hrodesis -patient of Dr. Cueva - Progressive back pain since September 2018. Found to have partial compression fr actures and multiple vertebral bones and was put on dexamethasone for pain contr ol. - BMBx 04/14 demonstrated Diffuse Large B Cell Lymphoma -PET CT scan04/24/2019was performed and it showed innumerable intensity FDG lesions throughout the osseous structures and multiple ribs, dorsal vertebra, sa noel and pelvic bones in addition to the long bones. -MRI T spine 04/24 -Diffuse abnormal marrow signal thoracic spine compatible w ith known osseous involvement by lymphoma. No abnormal cord signal. -MRI L spine 04/24 - Marked L1 compression deformity status post cementaugment ation.Marked extraosseous extension of tumor at this level which in combinatio n with retropulsed fragments result in severe central spinal stenosis at the lev el of the conus and proximal cauda equina. Findings could produce symptoms of ca uda equina syndrome. -Patient had an urgent surgery 04/26 with T12-L2 decompression and fusion compl icated by dural leak - Pathology, "epidural tumor", T12-L2 laminectomy: Diffuse large B-cell lymphoma , germinal center type, with necrosis - s/p R-COEP x6 -PET 11/11/2019 concerning for hypermetabolic lesions on left illiac bone, new pa raspinal lesions around L5. CT did not have correlation. -Admission to 11/11/2019 for MRI characterization of lesions and possible biop sy. Hold on planned high dose systemic methotrexate -MRI: verbal communication w/ radiologist that there are lesions concerning for lymphoma. Pt to go for biopsy today. -S/pbone biopsy on 11/12/2019.Flowcytometry negative. L4 prelim report nega tive. T9 biopsy sent for lymphoma staining. - MRI brain showed no disease involvement Plan > PPx: Acyclovir 400mg BID > continue Allopurinol 300mg QDay > Fenatyl [id number]/hr Q72h > Gabapentin 300mg Q8h >Zofran 4mg PO Q8 prn > IT chemo 11/26 > Start R-DHAP day 1 on 11/26/2019 ParoxsymalAfib - Reported ED visit for A fib in 2014 following NSTEMI and CARLY. Was reportedly o n anticoagulation until earlier this year -Hospitalization 05/14-05/18 for Afib with RVR among others. Discharged with Meto prolol and diltiazem - Follows with Dr. Ayesha Vega Plan > Continue PTAamiodarone 200mg QDay, metoprolol > Hold eliquis for IT chemo- Will need to restart 11/26 CAD s/p CARLY 05/15/19 Heart Failure with Recovered Ejection Fraction HLD HTN -CARLY placed in 2014 -CARLY placed 05/15/19.Patient had CP and mild elevation in troponin following ca theter directed thrombolysis, but no mention of an EKGor luminal abnormalities on angiogram -Echo 11/25 EF EF 45-50%, grade 1 diastolic dysfunction, LV less dilated with imp roved rejection fraction compared to 06/08/2019 echo. > Lasix dose was decreased to 20 mg p.o. daily due to orthostatic blood pressure changes. Holding for now. Monitor daily weights > Contractility: Metoprolol XL 150mg QDay > Afterload: SERVICE CLERK Entresto, Spironolactone 25mg QDay >Entresto >PTALipitor 40 mg qd >SERVICE CLERK plavix - will continue to monitor platelets and potential need to d/c Hx ofDVT/PE - Hospitalized for syncopal event at [facility] [address] 05/14-05/18. CTA demons trated "extensive bilateral pulmonary emboli." Because patient was hypotensive, he was taken to interventional cardiology who performed catheter directed thromb olysis with TPA -No signs of right heart failure on right heart cath. Discharged on 5 mg Eliquis BID Plan: > Hold eliquis for IT chemo DMTypeII -SERVICE CLERK [id number] > LDCF, Monitor glucose HCV -S/p treatment in 2015 Sleep >SERVICE CLERK Zolpidem 10mg qHS FEN: No IVF, Lytes PRN, NPO PPx: Holding SERVICE CLERK Apixaban 5 Dispoheme admit Code:Full Patient discussed with Dr. Sangeetha Contreras Internal Medicine Resident PGY1 Pager [phone] Subjective Refugio Lopez is a 59 y.o. male. RICHARD overnight. Patient got a good night of rest. Denies SOB, CP, abdominal pain, dysuria, LE edema Medications Scheduled Meds:allopurinoL (ZYLOPRIM) tablet 300 mg, 300 mg, Oral, QDAY amiodarone (CORDARONE) tablet 200 mg, 200 mg, Oral, QDAY atorvastatin (LIPITOR) tablet 40 mg, 40 mg, Oral, QDAY CISplatin (PLATINOL) 228 mg in sodium chloride 0.9% (NS) 478 mL IVPB, 100 mg/m2 (Treatment Plan Recorded), Intravenous, ONCE clopiDOGrel (PLAVIX) tablet 75 mg, 75 mg, Oral, QDAY [START ON 11/27/2019] cytarabine (CYTOSAR) 4,560 mg in sodium chloride 0.9% (NS) 295.6 mL IVPB(C100), 2 g/m2 (Treatment Plan Recorded), Intravenous, Q12H* dexAMETHasone (DECADRON) tablet 40 mg, 40 mg, Oral, QDAY fentaNYL (DURAGESIC) 75 mcg/hr patch 1 patch, 1 patch, Transdermal, Q72H* gabapentin (NEURONTIN) capsule 300 mg, 300 mg, Oral, Q8H* insulin aspart U-100 (NOVOLOG FLEXPEN) injection PEN 0-6 Units, 0-6 Units, Subcu LEANN lugo (22) LORazepam (ATIVAN) tablet 0.5 mg, 0.5 mg, Oral, ONCE [START ON 11/27/2019] methotrexate PF 12 mg in sodium chloride PF 0.9% 5 mL IT sy ringe, 12 mg, Intrathecal, ONCE metoprolol XL (TOPROL XL) tablet 150 mg, 150 mg, Oral, QDAY ondansetron (ZOFRAN) tablet 16 mg, 16 mg, Oral, Q24H* pantoprazole DR (PROTONIX) tablet 40 mg, 40 mg, Oral, QDAY prednisolone acetate (PRED FORTE) 1 % ophthalmic suspension 2 drop, 2 drop, Both Eyes, Q6H* sacubitriL-valsartan (ENTRESTO) 24-26 mg tablet 1 tablet, 1 tablet, Oral, BID senna/docusate (SENOKOT-S) tablet 1 tablet, 1 tablet, Oral, BID [START ON 11/27/2019] sodium chloride 0.9% (NS) 1,000 mL with potassium chloride 20 mEq, magnesium sulfate 2 g IV infusion, , Intravenous, ONCE spironolactone (ALDACTONE) tablet 25 mg, 25 mg, Oral, QDAY Continuous Infusions: PRN and Respiratory Meds:alteplase PRN (Veter[employer] Coordinator from Rx), cyclobenzaprine TID [place] N, melatonin QHS PRN, oxyCODONE Q3H PRN, sodium chloride 0.9 % TKO infusion PRN, sodium chloride 0.9% irrigation bottle PRN Review of Systems: A 14 point review of systems was negative Objective: Vital Signs: Last Filed Vital Signs: 24 Devan r Range BP: 104/62 (11/25 406) Temp: 36.4 C (97.5 F) (11/25 406) Pulse: 67 (11/25 406) Respirations: 18 PER MINUTE (11/25 406) SpO2: 97 % (11/25 406) Height: 185.4 cm (73") (11/25 406) BP: (96-122)/(62-81) Temp: [36.3 C (97.4 F)-36.7 C (98.1 F)] Pulse: [64-78] Respirations: [18 PER MINUTE] SpO2: [96 %-98 %] Intensity Pain Scale (Self Report): 6 (11/25/19 2145) Vitals: 11/25/19 1430 11/25/19 1616 11/26/19 0407 Weight: 100.9 kg (222 lb 8 oz) 100.9 kg (222 lb 8 oz) 99.3 kg (219 lb) Intake/Output Summary: (Last 24 hours) Intake/Output Summary (Last 24 hours) at 11/26/2019 1619 Last data filed at 11/26/2019 1603 Gross per 24 hour Intake 2272 ml Output 3400 ml Net -1128 ml Physical Exam General appearance: alert, well-developed, well-nourished and cooperative Eyes: conjunctivae/corneas clear. PERRL, EOM's intact. Fundi benign Neck: supple, symmetrical, trachea midline and thyroid: not enlarged, symmetric, no tenderness/mass/nodules Lungs: clear to auscultation bilaterally Heart: regular rate and rhythm, S1, S2 normal, no murmur, click, rub or gallop Abdomen: soft, non-tender. Bowel sounds normal. No masses, no organomegaly Extremities: extremities normal, atraumatic, no cyanosis or edema Neurologic: Grossly normal Peripheral pulses: 2+ and symmetric Lab Review No pertinent labs Point of Care Testing (Last 24 hours) Glucose: (!) 107 (11/26/19 0417) POC Glucose (Download): (!) 156 (11/25/192150) Radiology and other Diagnostics Review: Pertinent radiology reviewed. Jamshid Contreras MD Pager [phone] Associated attestation - Eliecer Novak MD - 11/26/2019 5:27 PM CDT ATTESTATION I personally performed the lewis portions of the E/M visit, discussed case with re sident and concur with resident documentation of history, physical exam, assessm ent, and treatment plan unless otherwise noted. Eliecer Novak [phone] * Mariam Desai RN - 11/26/2019 6:01 AM CDT Shift: - 07 NEWS Score: 20 - 0 00 - 0 04 - 1 (SBP) Pain: C/o /10 chronic back pain relieved with 72hr fentanyl patch, 10 mg oxy, a nd 10 mg flexiril. Nutrition: Regular diet. Good appetite. GI/: Denies N/V. Last BM: 11/24. Voiding clear, yellow urine. Activity: UAL. Family: (Heather) at bedside. Last Shower: 11/24 SERVICE CLERK. New Events or Follow-up: -No replacements this AM. -No acute events overnight. * Sarah Beth Porter RN - 11/25/2019 3:00 PM CDT .Patient arrived to room # (4201*) via ambulation accompanied by family. Patient transferred to the bed without assistance. Bedside safety checks completed. Ini tial patient assessment completed. Refer to flowsheet for details. Admission skin assessment completed with: Bertin BALDWIN Pressure injury present on arrival?: No 1. Head/Face/Neck: No 2. Trunk/Back: No 3. Upper Extremities: No 4. Lower Extremities: No 5. Pelvic/Coccyx: No 6. Assessed for device associated injury? No 7. Malnutrition Screening Tool (Nursing Nutrition Assessment) Completed? No See Doc Flowsheet for additional wound details. INTERVENTIONS: None needed at this time. Will continue to monitor. documented in this encounter H&P Notes * Eliecer Novak MD - 11/25/2019 3:48 PM CDT Admission History and Physical Refugio Lopez Date of Admission: 11/25/2019 Active Problems: DM (diabetes mellitus) (HCC) Chronic hepatitis C (HCC) Pulmonary embolus (HCC) Heart failure with reduced ejection fraction (HCC) DLBCL (diffuse large B cell lymphoma) (HCC) Impression/Plan: Refugio So is a 59 yr old male w/ PMH of DM Type II, cardiomyopathy, CAD s/p CARLY x2 05/15/19 and 2014, DVT and possible massive PE 05/14 s/p catheter direc ignacio TPA, chronic hepatitis C s/p curative treatment, HTN, DLBCL w/ bulky spinal cord involvement s/p laminectomy and arthrodesis on 04/26 who is admitted for fo r R-DHAP day 1 on 11/26/2019 DLBCL withBulkySpinal Involvements/p Laminectomy and Decompression and Art hrodesis -patient of Dr. Cueva - Progressive back pain since September 2018. Found to have partial compression fr actures and multiple vertebral bones and was put on dexamethasone for pain contr ol. - BMBx 04/14 demonstrated Diffuse Large B Cell Lymphoma -PET CT scan04/24/2019was performed and it showed innumerable intensity FDG lesions throughout the osseous structures and multiple ribs, dorsal vertebra, sa noel and pelvic bones in addition to the long bones. -MRI T spine 04/24 -Diffuse abnormal marrow signal thoracic spine compatible w ith known osseous involvement by lymphoma. No abnormal cord signal. -MRI L spine 04/24 - Marked L1 compression deformity status post cementaugment ation.Marked extraosseous extension of tumor at this level which in combinatio n with retropulsed fragments result in severe central spinal stenosis at the lev el of the conus and proximal cauda equina. Findings could produce symptoms of ca uda equina syndrome. -Patient had an urgent surgery 04/26 with T12-L2 decompression and fusion compl icated by dural leak - Pathology, "epidural tumor", T12-L2 laminectomy: Diffuse large B-cell lymphoma , germinal center type, with necrosis - s/p R-COEP x6 -PET 11/11/2019 concerning for hypermetabolic lesions on left illiac bone, new pa raspinal lesions around L5. CT did not have correlation. -Admission to 11/11/2019 for MRI characterization of lesions and possible biop sy. Hold on planned high dose systemic methotrexate -MRI: verbal communication w/ radiologist that there are lesions concerning for lymphoma. Pt to go for biopsy today. - S/p bone biopsy on 11/12/2019. Flowcytometry negative. L4 prelim report negativ e. T9 biopsy sent for lymphoma staining. > PPx: Acyclovir 400mg BID > continue Allopurinol 300mg QDay > Fenatyl Patch 75mcg/hr Q72h > Gabapentin 300mg Q8h >Zofran 4mg PO Q8 prn > Will obtain MRI brain > ECho > IT chemo tomorrow > Plan for R-DHAP day 1 on 11/26/2019 Paroxsymal Afib - Reported ED visit for A fib in 2014 following NSTEMI and CARLY. Was reportedly o n anticoagulation until earlier this year -Hospitalization 05/14-05/18 for Afib with RVR among others. Discharged with Meto prolol and diltiazem - Follows with Dr. Ayesha Vega > Continue PTAamiodarone 200mg QDay, metoprolol > Hold eliquis for IT chemo CAD s/p CARLY 05/15/19 Heart Failure with Recovered Ejection Fraction HLD HTN -EF 35% in 2014 per OSH notes -Echo 04/27; EF 55%, mild LV dysfunction, madelaine-apical akinesis suggesting prior anterior ME, mild LA enlargement -CARLY placed in 2014 -CARLY placed 05/15/19.Patient had CP and mild elevation in troponin following ca theter directed thrombolysis, but no mention of an EKGor luminal abnormalities on angiogram > Lasix dose was decreased to 20 mg p.o. daily due to orthostatic blood pressure changes. Holding for now. > Contractility: Metoprolol XL 150mg QDay > Afterload: SERVICE CLERK Entresto, Spironolactone 25mg QDay > Entresto >PTALipitor 40 mg qd >SERVICE CLERK plavix Hx ofDVT/PE - Hospitalized for syncopal event at [facility] [address] 05/14-05/18. CTA demons trated "extensive bilateral pulmonary emboli." Because patient was hypotensive, he was taken to interventional cardiology who performed catheter directed thromb olysis with TPA -No signs of right heart failure on right heart cath. Discharged on 5 mg Eliquis BID Plan: > Hold eliquis for IT chemo DMTypeII -SERVICE CLERK [id number] > holding metformin at discharge > LDCF, Monitor glucose HCV -S/p treatment in 2015 Sleep > SERVICE CLERK Zolpidem 10mg qHS FEN: No IVF, Lytes PRN, NPO PPx: Holding SERVICE CLERK Apixaban 5 Dispoheme admit Code:Full Patient discussed with Dr. Sangeetha Lieberman, [facility] Internal Medicine Resident Pager [phone] CC: for R-DHAP day 1 on 11/26/2019 HPI: Refugio So is a 59 yr old male w/ PMH of DM Type II, cardiomyopathy, CAD s/p CARLY x2 05/15/19 and 2014, DVT and possible massive PE 05/14 s/p catheter direc ignacio TPA, chronic hepatitis C s/p curative treatment, HTN, DLBCL w/ bulky spinal cord involvement s/p laminectomy and arthrodesis on 04/26 who is admitted for fo r R-DHAP day 1 on 11/26/2019. The patient presented to the hospital for planned chemotherapy. We will get cyc le 1 of R-DHAP day 1 on 11/26/2019. Patient currently denies fever or chills. N o URI symptoms. Regular bowel habit with no diarrhea/constipation. Has chronic back pain using fentanyl patch 75 mcg and oxycodone PRN. Reports chronic night sweats. Last admission, Lasix dose was decreased to 20 mg p.o. daily due to orthostatic blood pressure changes. Patient denies lower extremity swelling or orthopnea th is admission. PMH: Medical History: Diagnosis Date Back pain CAD (coronary artery disease) Cardiomyopathy (HCC) Chronic hepatitis C (HCC) DM (diabetes mellitus) (HCC) Essential hypertension GERD (gastroesophageal reflux disease) Multiple myeloma and immunoproliferative neoplasms (HCC) Surgical History: Procedure Laterality Date T12-L2 POSTERIOR INSTUMENTATION ARTHRODESIS, T12-L2 LAMINECTOMY, T12-L1 POST ERIOR LATERAL DECOMPRESSION, REPAIR OF INCIDENTAL NEUROTOMY, LOCAL BONE GRAFTING N/A 04/26/2019 Performed by Enoch Pandey MD at [facility] OR/Periop CLOSURE PSEUDOANEURYSM BY INJECTION- LOWER EXTREMITY Right 06/10/2019 Performed by eTrry Mustafa MD at [facility] CATHETERIZATION KYPHOPLASTY Family History Problem Relation Age of Onset Cancer-Lung Mother Cancer-Pancreas Father Social History Socioeconomic History Marital status: Spouse name: Not on file Number of children: Not on file Years of education: Not on file Highest education level: Not on file Occupational History Not on file Tobacco Use Smoking status: Former Smoker Last attempt to quit: 07/26/2015 Years since quittin.3 Smokeless tobacco: Never Used Substance and Sexual Activity Alcohol use: Yes Alcohol/week: 2.0 standard drinks Types: 2 Cans of beer per week Drug use: Never Sexual activity: Not on file Other Topics Concern Not on file Social History Narrative Not on file ALLERGIES: No Known Allergies No current facility-administered medications on file prior to encounter. Current Outpatient Medications on File Prior to Encounter Medication Sig Dispense Refill acetaminophen (TYLENOL) 325 mg tablet Take two tablets by mouth every 6 hour s as needed. Max dose of 4000 mg daily 30 tablet 0 allopurinol (ZYLOPRIM) 300 mg tablet Take one tablet by mouth daily. Take food. 90 tablet 3 amiodarone (CORDARONE) 200 mg tablet Take one tablet daily. 30 tablet 1 apixaban (ELIQUIS) 5 mg tablet Take one tablet by mouth twice daily. Start o n Saturday11/15/2019 60 tablet 0 atorvastatin (LIPITOR) 40 mg tablet Take one tablet by mouth daily. 90 table t 3 clopiDOGrel (PLAVIX) 75 mg tablet Take 75 mg by mouth daily. cyclobenzaprine (FLEXERIL) 10 mg tablet Take 10 mg by mouth three times elham y as needed. fentaNYL (DURAGESIC) 75 mcg/hr patch Apply one patch to top of skin as direc ignacio every 72 hours 3 patch 0 furosemide (LASIX) 20 mg tablet Take one tablet by mouth every morning. 90 t ablet 0 gabapentin (NEURONTIN) 300 mg capsule Take 300 mg by mouth every 8 hours. melatonin 5 mg tab Take one tablet by mouth at bedtime as needed. 30 tablet 0 metFORMIN (GLUCOPHAGE) 500 mg tablet Take 500 mg by mouth twice daily with m eals. metoprolol XL (TOPROL XL) 50 mg extended release tablet Take three tablets b y mouth daily. 90 tablet 1 Multivitamins with Fluoride (MULTI-VITAMIN PO) Take 1 tablet by mouth daily. nitroglycerin (NITROSTAT) 0.[address] 0.4 mg under tongue every 5 mi nutes as needed for Chest Pain. Max of 3 tablets, call 911. oxyCODONE (ROXICODONE) 5 mg tablet Take one tablet to two tablets by mouth e very 3 hours as needed [address] (PROTONIX) 40 mg tablet Take one tablet by mouth daily. 90 t ablet 1 sacubitriL-valsartan (ENTRESTO) 24-26 mg tablet Take 1 tablet by mouth twice daily. senna/docusate (SENOKOT-S) 8.6/50 mg tablet Take one tablet by mouth twice d aily. 60 tablet 0 spironolactone (ALDACTONE) 25 mg tablet Take one tablet by mouth daily. Take with food. 30 tablet 1 Review of Systems 14 points review of systems were negative except points mentioned in HPI Objective Vital Signs: Last Filed Vital Signs: 24 Devan r Range BP: 114/78 (11/24 143) Temp: 36.7 C (98.1 F) (11/24 1429) Pulse: 74 (11/24 1432) Respirations: 18 PER MINUTE (11/24 1429) SpO2: 98 % (11/24 1429) Height: 185.4 cm (72.99") (11/24 08) BP: (96-116)/(63-78) Temp: [36.6 C (97.8 F)-36.7 C (98.1 F)] Pulse: [64-77] Respirations: [18 PER MINUTE] SpO2: [98 %] Intake/Output: reviewed, Physical Exam General Appearance: appears as stated age, no distress Skin: no ulcers or xanthomata Eyes: conjunctivae and lids normal, pupils are equal and round Teeth/Gums/Palate: dentition unremarkable, no lesions Chest auscultation/Percussion: lungs clear to auscultation Cardiac Auscultation: S1, S2 present, no rub, no S3 gallop, no S4 gallop, no mur mur Lower Extremity: no lower extremity edema Abdominal Exam: soft, non-tender, no masses, bowel sounds normal, nohepatospleno megaly Neurologic Exam: neurological assessment grossly intact and moves all extremitie s Right chest tunneled CVC Lab Review CBC w/Diff Lab Results Component Value Date/Time WBC 3.9 (L) 11/25/2019 07:55 AM RBC 3.90 (L) 11/25/2019 07:55 AM HGB 12.4 (L) 11/25/2019 07:55 AM HCT 36.8 (L) 11/25/2019 07:55 AM MCV 94.4 11/25/2019 07:55 AM MCH 31.8 11/25/2019 07:55 AM MCHC 33.7 11/25/2019 07:55 AM RDW 14.2 11/25/2019 07:55 AM PLTCT 198 11/25/2019 07:55 AM MPV 6.6 (L) 11/25/2019 07:55 AM Lab Results Component Value Date/Time NEUT 50 11/25/2019 07:55 AM ANC 1.90 11/25/2019 07:55 AM LYMA 23 (L) 11/25/2019 07:55 AM ALC 0.90 (L) 11/25/2019 07:55 AM GANESH 19 (H) 11/25/2019 07:55 AM AMC 0.70 11/25/2019 07:55 AM EOSA 6 (H) 11/25/2019 07:55 AM AEC 0.20 11/25/2019 07:55 AM BASA 2 11/25/2019 07:55 AM ABC 0.10 11/25/2019 07:55 AM Comprehensive Metabolic Profile Lab Results Component Value Date/Time NA 139 11/25/2019 07:55 AM K 4.4 11/25/2019 07:55 AM CL 103 11/25/2019 07:55 AM CO2 30 11/25/2019 07:55 AM GAP 6 11/25/2019 07:55 AM BUN 14 11/25/2019 07:55 AM CR 0.71 11/25/2019 07:55 AM GLU 124 (H) 11/25/2019 07:55 AM Lab Results Component Value Date/Time CA 9.1 11/25/2019 07:55 AM PO4 5.5 (H) 11/13/2019 05:00 AM ALBUMIN 4.2 11/25/2019 07:55 AM TOTPROT 6.5 11/25/2019 07:55 AM ALKPHOS 110 11/25/2019 07:55 AM AST 14 11/25/2019 07:55 AM ALT 11 11/25/2019 07:55 AM TOTBILI 0.3 11/25/2019 07:55 AM GFR >60 11/25/2019 07:55 AM GFRAA >60 11/25/2019 07:55 AM Point of Care Testing (Last 24 hours) Radiology and other Diagnostics Review: Reviewed Ra'Ed XENA Lieberman 2851 ATTESTATION I personally performed the lewis portions of the E/M visit, discussed case with re sident and concur with resident documentation of history, physical exam, assessm ent, and treatment plan unless otherwise noted. Eliecer Novak 2922 documented in this encounter Consult Notes * Penny Borges APRN-POWER SHOVEL OPERATOR - 11/26/2019 9:44 AM CDT Associated Order(s): CONSULT INTERVENTIONAL RADIOLOGY PHYSICIAN Interventional Radiology Consult Note with Pre-procedural History and Physical Admission Date: 11/25/2019 LOS: 1 day Active Problems: DM (diabetes mellitus) (HCC) Chronic hepatitis C (HCC) Pulmonary embolus (HCC) Heart failure with reduced ejection fraction (HCC) DLBCL (diffuse large B cell lymphoma) (HCC) Reason for consult: Administration of IT chemotherapy Assessment: - Admitted for treatment of lymphoma - Review of imaging reveals no midline shift or mass effect to contraindicate pr ocedure. - This is his first IT chemo administration - Labs, medications, and allergies meet procedural protocol. - Platelet Count Date Value Ref Range Status 11/26/2019 153 150 - 400 K/UL Final ; No results found for: INR Plan: -Will proceed with LP with IT chemo today. -We intend to use a local anesthetic only for this procedure, therefore the ayana ent does not need to stay NPO prior. If pt is confused, please place them NPO fo r possible sedation administration during procedure. Procedure: Lumbar puncture with administration of intrathecal chemotherapy. IR Pre Procedure Notes: Consent with UC Chief Complaint: Lymphoma Previous Anesthetic/Sedation History: Reviewed. History of present illness: Refugio Lopez is a 59 y.o. male patient with DLBCL with spinal involvement. I R consulted for LP with IT chemo admin. Overall, feels well. See ROS below for c urrent symptoms Review of Systems Constitutional: negative for fevers and chills Respiratory: negative for increased work of breathing Gastrointestinal: negative for nausea and vomiting Neurological: positive for back pain Medications Scheduled Meds:allopurinoL (ZYLOPRIM) tablet 300 mg, 300 mg, Oral, QDAY amiodarone (CORDARONE) tablet 200 mg, 200 mg, Oral, QDAY atorvastatin (LIPITOR) tablet 40 mg, 40 mg, Oral, QDAY clopiDOGrel (PLAVIX) tablet 75 mg, 75 mg, Oral, QDAY fentaNYL (DURAGESIC) 75 mcg/hr patch 1 patch, 1 patch, Transdermal, Q72H* gabapentin (NEURONTIN) capsule 300 mg, 300 mg, Oral, Q8H* insulin aspart U-100 (NOVOLOG FLEXPEN) injection PEN 0-6 Units, 0-6 Units, Subcu taneous, ACHS (22) metoprolol XL (TOPROL XL) tablet 150 mg, 150 mg, Oral, QDAY pantoprazole DR (PROTONIX) tablet 40 mg, 40 mg, Oral, QDAY sacubitriL-valsartan (ENTRESTO) 24-26 mg tablet 1 tablet, 1 tablet, Oral, BID senna/docusate (SENOKOT-S) tablet 1 tablet, 1 tablet, Oral, BID spironolactone (ALDACTONE) tablet 25 mg, 25 mg, Oral, QDAY Continuous Infusions: PRN and Respiratory Meds:alteplase PRN (Veterans' Coordinator from Rx), cyclobenzaprine TID [place] N, melatonin QHS PRN, oxyCODONE Q3H PRN, sodium chloride 0.9 % TKO infusion PRN, sodium chloride 0.9% irrigation bottle PRN Objective Vital Signs: Last Filed Vital Signs: 24 Devan r Range BP: 108/72 (11/25 905) Temp: 36.4 C (97.5 F) (11/25 905) Pulse: 73 (11/25 905) Respirations: 18 PER MINUTE (11/25 905) SpO2: 97 % (11/25 905) Height: 185.4 cm (73") (11/25 406) BP: (96-122)/(62-81) Temp: [36.3 C (97.4 F)-36.7 C (98.1 F)] Pulse: [64-78] Respirations: [18 PER MINUTE] SpO2: [96 %-98 %] Intensity Pain Scale (Self Report): 6 (11/25/19 2145) Vitals: 11/25/19 1430 11/25/19 1616 11/26/19 0407 Weight: 100.9 kg (222 lb 8 oz) 100.9 kg (222 lb 8 oz) 99.3 kg (219 lb) Intake/Output Summary: (Last 24 hours) Intake/Output Summary (Last 24 hours) at 11/26/2019 0944 Last data filed at 11/26/2019 0905 Gross per 24 hour Intake 1072 ml Output 2100 ml Net -1028 ml Physical Exam General appearance: alert and no distress Neurologic: Grossly normal, at baseline Lungs: Nonlabored with normal effort Abdomen: soft, non-tender. Extremities: extremities normal, atraumatic, no cyanosis or edema Anesthesia Classification: ASA III (A patient with a severe systemic disease th at limits activity, but is not incapacitating) Pre procedure anxiolysis plan: None Intra-procedural Sedation/Medication Plan: Lidocaine Discussion/Reviews: Physician has discussed risks and alternatives of this type of sedation and above planned procedures with patient NPO Status: Acceptable Status: N/A Lab/Radiology/Other Diagnostic Tests: Labs: 24-hour labs: Results for orders placed or performed during the hospital encounter of 11/25/19 (from the past 24 hour(s)) POC GLUCOSE Collection Time: 11/25/19 9:51 PM Result Value Ref Range Glucose, POC 156 (H) 70 - 100 MG/DL CBC AND DIFF CELLULAR THERAPEUTICS Collection Time: 11/26/19 4:17 AM Result Value Ref Range White Blood Cells 2.9 (L) 4.5 - 11.0 K/UL RBC 3.61 (L) 4.4 - 5.5 M/UL Hemoglobin 11.4 (L) 13.5 - 16.5 GM/DL Hematocrit 33.5 (L) 40 - 50 % MCV 92.9 80 - 100 FL MCH 31.7 26 - 34 PG MCHC 34.1 32.0 - 36.0 G/DL RDW 14.4 11 - 15 % Platelet Count 153 150 - 400 K/UL MPV 6.9 (L) 7 - 11 FL Neutrophils 37 (L) 41 - 77 % Lymphocytes 36 24 - 44 % Monocytes 18 (H) 4 - 12 % Eosinophils 8 (H) 0 - 5 % Basophils 1 0 - 2 % Absolute Neutrophil Count 1.10 (L) 1.8 - 7.0 K/UL Absolute Lymph Count 1.00 1.0 - 4.8 K/UL Absolute Monocyte Count 0.50 0 - 0.80 K/UL Absolute Eosinophil Count 0.20 0 - 0.45 K/UL Absolute Basophil Count 0.00 0 - 0.20 K/UL COMPREHENSIVE METABOLIC PANEL CELLULAR THERAPEUTICS Collection Time: 11/26/19 4:17 AM Result Value Ref Range Sodium 140 137 - 147 MMOL/L Potassium 4.0 3.5 - 5.1 MMOL/L Chloride 105 98 - 110 MMOL/L Glucose 107 (H) 70 - 100 MG/DL Blood Urea Nitrogen 12 7 - 25 MG/DL Creatinine 0.72 0.4 - 1.24 MG/DL Calcium 8.7 8.5 - 10.6 MG/DL Total Protein 5.9 (L) 6.0 - 8.0 G/DL Total Bilirubin 0.4 0.3 - 1.2 MG/DL Albumin 3.8 3.5 - 5.0 G/DL Alk Phosphatase 95 25 - 110 U/L AST (SGOT) 13 7 - 40 U/L CO2 28 21 - 30 MMOL/L ALT (SGPT) 9 7 - 56 U/L Anion Gap 7 3 - 12 eGFR Non >60 >60 mL/min eGFR >60 >60 mL/min MAGNESIUM CELLULAR THERAPEUTICS Collection Time: 11/26/19 4:17 AM Result Value Ref Range Magnesium 2.0 1.6 - 2.6 mg/dL PHOSPHORUS CELLULAR THERAPEUTICS Collection Time: 11/26/19 4:17 AM Result Value Ref Range Phosphorus 5.3 (H) 2.0 - 4.5 MG/DL Radiology: Reviewed. We appreciate being able to participate in this patient's care. Please page with any questions or concerns. Penny Borges APRN-POWER SHOVEL OPERATOR Pgr [phone] IR Team Pager [phone] (After-hours and Weekends) documented in this encounter Miscellaneous Notes * Procedures (Immed Post or Bedside) - Kendrick Hamilton MD - 11/27/2019 9:47 AM CDT Immediate Post Procedure Note Date: 11/27/2019 Attending Physician: Dr. Maxwell Performing Provider: KENDRICK HAMILTON MD Consent: Consent obtained from patient. Time out performed: Consent obtained, correct patient verified, correct procedur e verified, correct site verified, patient marked as necessary. Pre/Post Procedure Diagnosis: lymphoma Indications: lymphoma Anesthesia: Local subcutaneous 2% lidocaine Procedure(s): LP with IT chemo Findings: Successful lumbar puncture with IT chemotherapy administration Estimated Blood Loss: None/Negligible Specimen(s) Removed/Disposition: Yes, sent to pathology Complications: None Patient Tolerated Procedure: Well Post-Procedure Condition: stable KENDRICK HAMILTON MD IR Pager [phone] * Case Mgmt DC Plan - Miriam Tolliver RN - 11/26/2019 10:16 AM CDT Case Management Admission Assessment NAME:Refugio Lopez :1959 AGE: 59 y.o. ADMISSION DATE: 11/25/2019 DAYS ADMITTED: LOS: 1 day Todays Date: 11/26/2019 Source of Information: Patient and patient's , Cristal Plan Plan: Case Management Assessment, Assist PRN with SW/NCM Services, Discharge Bipin nning for Home Anticipated Per H&P, "59 yr old male w/ PMH of DM Type II, cardiomyopathy, CAD s/p CARLY x2 05/15/19 and 2014, DVT and possible massive PE 05/14 s/p catheter directed TPA, chronic hepatitis C s/p curative treatment, HTN, DLBCL w/ bulky spinal cord involvement s/p laminectomy and arthrodesis on 04/26 who is admitted for for R- DHAP day 1 on 11/26/2019." This CM met with pt for assessment on this date. Provided contact information a nd explanation of SW/NCM roles. Reviewed [facility], Preparing for Disc harge, and Preferred Provider Network hand-outs. Provided opportunity for quest ions and discussion. Pt/family encouraged to contact Case Management team with q uestions and concerns during hospitalization and until patient is able to transi tion back to the patient's primary care physician. *NCM visited with patient at bedside. *Pt states he continues to be independent with self-care & ADL's SERVICE CLERK & has no concerns for discharge at this time. *DC Transport: Pts spouseCristal P: *DME: [facility] *HH / HI: [facility] O: / F: (not currrubio t) *SNF / IPR / LTACH: [facility] (January & February 2019) *Primary Insurance: [facility] / [facility] *Secondary Insurance: N/A *Rx coverage: [facility] / [facility]. Pt continues to use [facility] pharmacy in [place]. *No NCM needs identified at this time. NCM encouraged pt to reach out if any nee ds should change. Pt verbalized understanding. *NCM will continue to follow and assess for additional needs through discharge. Patient Address/Phone [address] [facility] [address] (home) Emergency Contact Extended Emergency Contact Information Primary Emergency Contact: cristal lopez Relation: Spouse Healthcare Directive Healthcare Directive: No, patient does not have a healthcare directive Would patient like to fill out a (a new) Healthcare Directive?: No, patient decl ined Psych Advance Directive (Psych unit only): No, patient does not have a Psych Adv ance Directive Transportation Does the patient need discharge transport arranged?: No Transportation Name, Phone and Availability #1: Cristal P: Transportation Name, Phone and Availability #2: [id number] Lu Morgan P : Does the patient use Medicaid Transportation?: No Expected Discharge Date Expected Discharge Date: 11/28/19 Living Situation Prior to Admission ? Living Arrangements Type of Residence: Home, independent Living Arrangements: Spouse/significant other(with Cristal) Bathroom Shower / Tub: Tub/Shower Unit, Walk-in Shower(with standard toilet) How many levels in the residence?: 1 Can patient live on one level if needed?: Yes Does residence have entry and/or side stairs?: Yes(2-[address] Pt able to manage st eps independently SERVICE CLERK.) Assistance needed prior to admit or anticipated on discharge: No Who provides assistance or could if needed?: Cristal or [id number], Do margaret Mora P: Are they in good health?: Yes Can support system provide 24/7 care if needed?: Yes ? Level of Function Prior level of function: Independent ? Cognitive Abilities Cognitive Abilities: Alert and Oriented, Engages in problem solving and planning , Participates in decision making, Recognizes impact of health condition on life style, Understands nature of health condition Financial Resources ? Coverage Primary Insurance: Commercial insurance([facility] / R) Secondary Insurance: No insurance Additional Coverage: RX(through primary insurance. Pt still uses [facility] in [place] and copays continue to be affordable) ? Source of Income Source Of Income: SSI ? Financial Assistance Needed? None Psychosocial Needs ? Mental Health Mental Health History: No ? Substance Use History Substance Use History Screen: No ? Other None Current/Previous Services ? PCP Bertin Cole, , ? [id number] [address] [place] [id number] [facility] [address] [facility] [id number] [facility] [id number] ? Durable Medical Equipment Durable Medical Equipment at home: Roller Walker, Single Point Cane ? Home Health Receiving home health: In the past Agency name: [facility] (pt not current) Would patient use this agency again?: Yes ? Hemodialysis or Peritoneal Dialysis Undergoing hemodialysis or peritoneal dialysis: No ? Tube/Enteral Feeds Receive tube/enteral feeds: No ? Infusion Receive infusions: No ? Private Duty Private duty help used: No ? Home and Community Based Services Home and community based services: No ? Danny Delgado White: N/A ? Hospice Hospice: No ? Outpatient Therapy PT: No OT: No CONVOLUTE TUBE WINDER: No ? Correction Facility/Custodial SNF: No NH: No ? Inpatient Rehab IPR: In the past When did patient receive care?: January & February 2019 Name of Facility: [facility] Would patient return for future services?: Yes ? Long-Term Acute Care Hospital LTACH: No ? Acute Hospital Stay Acute Hospital Stay: Yes Was patient's stay within the last 30 days?: Yes Name of Hospital: [facility] When did patient receive care?: 11/11/2019 - 11/12/2019 Readmission Code Group: 8. Scheduled Readmission 8. Scheduled Readmission: 8a. Oncology Miriam Tolliver RN, BSN Nurse Treasury Management Sales ConsultantExperimental Mechanic / Surgical Non-Transplant Pager: * Advanced Care Planning/Resuscitation Status - Sheila Lieberman MBBS - 11/25/2019 4:46 PM CDT Advance Care Planning/Resuscitation Status Conversation Individuals present for advance care planning conversation: resident/fellow phys ician and patient Pertinent details of conversation (including direct quotes from patient or surro gate): Patient presents wishes to have full resuscitation efforts. He reports " resuscitate me unless I am brain " Outcome of conversation: Full Code Documents completed as a result of this conversation: None Other documents present, which outline patient/surrogate wishes: None Attestation? N/A documented in this encounter Plan of Treatment Date/Time Name Type Priority Associated Diag noses 11/27/2019 9:42 AM CDT CYTOLOGY SPECIMEN LABEL Pathology Routine documented as of this encounter Goals Goal Patient Associated Recent Progress Patient-Stat Aut hor Goal Type Problems ed? GOAL General No Carmelina Jeffrey RN Note: Back to work GOAL General Yes Selam Kirk RN Note: "To get better and beat this disease" documented as of this encounter Procedures Comments Procedure Name Priority Date/Time Associated [...] LUMBAR PUNCTURE Routine 11/27/2019 9:49 AM CDT CSF TUBE VOLUMES 11/27/2019 9:42 AM CDT [place] FLOW CYTOMETRY INTERPJ 11/27/2019 2-8 MARKERS 9:42 AM CDT LEUKEMIA/LYMPHOMA PANEL Routine 11/27/2019 FLUID/TISSUE 9:42 AM CDT HC CELL COUNT W/DIFF-CSF STAT 11/27/2019 9:42 AM CDT HC TOTAL PROTEIN-CSF STAT 11/27/2019 9:42 AM CDT HC GLUCOSE-CSF STAT 11/27/2019 9:42 AM CDT POC GLUCOSE 11/27/2019 8:31 AM CDT HC NON-CHIEF DEPUTY SHERIFF/THIN PREP Routine 11/27/2019 8:30 AM CDT HC [...] VRE SCREEN Routine 11/25/2019 2:30 PM CDT documented in this encounter Results * POC GLUCOSE (11/28/2019 8:16 AM CDT) Glucose, POC 241 (H) 70 - 100 MG/DL MAIN LAB Specimen Performing Organization Address [facility] Ph one Number MAIN LAB [address] [place] [address] * PHOSPHORUS CELLULAR THERAPEUTICS (11/28/2019 4:28 AM CDT) Phosphorus 4.3 2.0 - 4.5 MG/DL MAIN LAB Specimen Blood Performing Organization Address [facility] Ph one Number MAIN LAB [address] [place] [address] * MAGNESIUM CELLULAR THERAPEUTICS (11/28/2019 4:28 AM CDT) Magnesium 2.5 1.6 - 2.6 mg/dL MAIN LAB Specimen Blood Performing Organization Address [facility] Ph one Number MAIN LAB [address] [place] [address] * COMPREHENSIVE METABOLIC PANEL CELLULAR THERAPEUTICS (11/28/2019 4:28 AM CDT) Sodium 141 137 - 147 MMOL/L KU [...] >60 >60 mL/min KU MAIN LAB Comment: [place] The eGFR is not validated f or use in drug dosing adjustments. Continue to use estimated creatinine clearance per dosing reference text. Please contact the Clinical Pharmacist for questions. eGFR >60 >60 mL/min K[facility] MAIN LAB [place] Comment: The eGFR is not validated for use in drug dosing adjustments. Continue to use estimated creatinine clearance per dosing reference text. Please contact the Clinical Pharmacist for questions. Specimen Blood Performing Organization Address City/State/Zipcode Ph one Number KU MAIN LAB [address] [place] [address] * CBC AND DIFF CELLULAR THERAPEUTICS (11/28/2019 4:28 AM CDT) Pathologist [facility] White Blood 3.8 (L) 4.5 - 11.0 [...] Platelet Count 154 150 - 400 K/UL MAIN LAB MPV 7.4 7 - 11 [...] Count Absolute 0.00 0 - 0.20 K/UL MAIN LAB Basophil Count Specimen Blood Performing Organization Address City/[facility] Ph one Number MAIN LAB [address] [place] [address] * POC GLUCOSE (11/27/2019 9:25 PM CDT) Glucose, POC 268 (H) 70 - 100 MG/DL MAIN LAB Specimen Performing Organization Address [facility] Ph one Number MAIN LAB [address] [place] [address] * POC GLUCOSE (11/27/2019 5:10 PM CDT) Glucose, POC 264 (H) 70 - 100 MG/DL MAIN LAB Specimen Performing Organization Address [facility] one Number MAIN LAB [address] [place] [address] * POC GLUCOSE (11/27/2019 11:53 AM CDT) Glucose, POC 173 (H) 70 - 100 MG/DL MAIN LAB Specimen Performing Organization Address [facility] one Number MAIN LAB [address] [place] [address] * IR LUMBAR PUNCTURE (11/27/2019 9:49 AM CDT) Specimen Impressions Performed At Successful fluoroscopic guided lumbar puncture for th e purposes of intrathecal [facility] RAD RESULTS chemotherapy. Approved by Kendrick Hamilton MD on 2019 9:56 AM By my electronic signature, I attest th at I have personally reviewed the images for this examination and formulated the interpretations and opinions expressed in this report Finalized by James Mxawell M.D. on 10:05 AM. Dictated by Kendrick Hamilton MD on 11/27/2019 9:52 AM. Narrative Performed At Fluoroscopic Guided Lumbar Puncture for Intrathecal C hemotherapy [facility] RAD RESULTS Clinical History: 59-year-old male with lymphoma. Total fluoroscopy dose: 64 mGy. Medications: Subcutaneous 2% lidocaine Operators: James Toro M.D., M.D. Intrathecal Chemotherapy: Administere d by James [...] the usual standard sterile fashion. 2% lido kiersten was used for local anesthesia. Utilizing fluoroscopy [...] mGy. Medications: Subcutaneous 2% lidocaine Operators: Kendrick Hamilton M.D., James Maxwell M.D. Intrathecal Chemotherapy: Administered [...] purposes of intrathecal chemotherapy. Approved by Kendrick Hamilton MD on 11/27/2019 9:56 AM By my electronic signature, I attest that I have personally reviewed the images for this examination and formulated the interpretations and opinions expressed in this report Finalized by James Maxwell M.D. on 11/27/2019 10:05 AM. Dictated by Kendrick Hamilton MD on 11/27/2019 9:52 AM. Performing Organization Address City/State[facility] Ph one Number [facility] RAD RESULTS * FLOW CYTOMETRY (11/27/2019 9:42 AM CDT) PATHOLOGY [facility] MAIN [facility] [email or web address] Eugene Velázquez MD, Director of Flow Cytometry Laboratory Department of Pathology and Laboratory Medicine [address] [place] [address] Surgical Pathology Office: [phone] FLOW CYTOMETRY REPORT NAME: REFUGIO LOPEZ SURG PATH #: [id number] MR #: [id number] SPECIMEN CLASS: LC BILLING #: [id number] ALT ID #: LOCATION: 42 DATE OF PROCEDURE: 11/27/2019 AGE: 59 SEX: M DATE RECEIVED: 11/27/2019 : 1960 TIME RECEIVED: 10:48 PHYSICIAN: ELIECER NOVAK MD DATE OF REPORT: 11/28/2019 COPY TO: ELIECER NOVAK MD DATE OF PRINTIN11/28/2019 Material Received: [...] in this report. +++Electronically Signed Out By+++ btjigar/11/27/2019 Interpreted by: Yulissa Cm MD 11/28/2019 ############################## ############################## ############ Lab Data: Flow Cytometry - B Cell Panel B Cell Associated Markers (% Positive Cells): CD19 = 0; CD20 = 0; [place] = 0; Lambda = 0; [place]/Lambda ratio = n/a T Cell Associated Markers (% Positive Cells): CD5 = 80 Miscellaneous Markers (% Positive Cells): CD10 = 0; CD38 = 53; CD45 = 100 Cell Viability (%): qns Number of Cells Analyzed: 529 Total Number of Markers: 8 Summary of Marker Combinations: [place]/Lambda/5/19/38/45/10/20 This test was developed and its performance characteristics determined by the [facility] Flow Cytometry Laboratory. It has not been cleared or approved by the U.S. Food and Drug Administration (FDA). The FDA has determined that such clearance or approval is not necessary. Specimen Performing Organization Address City/State/Zipcode Ph one Number MAIN LAB [address] [place] [address] * CSF TUBE VOLUMES (11/27/2019 9:42 AM CDT) CSF Tube 1 4.0 mL K[facility] LAB RESULTS CSF Tube 2 2.0 mL K[facility] LAB RESULTS CSF Tube 3 0.0 mL K[facility] LAB RESULTS CSF Tube 4 0.0 mL K[facility] LAB RESULTS Specimen Performing Organization Address City/State/[facility] one Number KU LAB RESULTS * LEUKEMIA/LYMPHOMA PANEL FLUID/TISSUE (11/27/2019 9:42 AM CDT) Leuk/Lymph SEE PATHOLOGY REPORT KU MAIN LAB Interpretation Specimen/LLM CSF K[facility] MAIN LAB Specimen Cerebrospinal Fluid Performing Organization Address [facility] one Number MAIN LAB [address] [place] [address] * GLUCOSE-CSF (11/27/2019 9:42 AM CDT) Glucose,CSF 127 (H) 40 - 75 MG/DL KU MAIN LAB Xanthrochromia, NONE [facility] MAIN LAB CSF BLOOD PRESENT Specimen Cerebrospinal fluid - Cerebrospinal Fluid Performing Organization Address [facility] one Number MAIN LAB [address] [place] [address] * TOTAL PROTEIN-CSF (11/27/2019 9:42 AM CDT) Total 81 (H) 15 - 45 MG/DL K[facility] MAIN LAB Protein,CSF Specimen Cerebrospinal fluid - Cerebrospinal Fluid Performing Organization Address [facility] one Number MAIN LAB [address] [place] [address] * CELL COUNT W/DIFF-CSF (11/27/2019 9:42 AM CDT) Cell Count TUBE4 KU MAIN LAB Tube,CSF White Blood 2 <5 /UL [facility] MAIN LAB Cells,CSF Red Blood 6,875 /UL [facility] MAIN LAB Cells,CSF Neutrophils, 76 % K[facility] MAIN LAB CSF Lymphocytes, 16 % [facility] MAIN LAB CSF Monocyte/Hisoto 7 % [facility] MAIN LAB cyte, CSF Eosinophils, 1 % [facility] MAIN LAB CSF Clarity,CSF SLIGHTLY BLOODY [facility] MAIN LAB Path HEMORRHAGIC FLUID [facility] MAIN LAB Interpretation, NEGATIVE FOR ATYPICAL CSF HEMATOPOIETIC CELLS Pathologist INTERPRETED BY TYRA WISE [facility] MAIN LAB Signature M.D. By the PATH SIGNATURE ABOVE, I attest that I have personally formulated the final interpretation expressed in this report and that the above diagnosis is based upon my examination of the slides and/or other material indicated in this report. Specimen Cerebrospinal fluid - Cerebrospinal Fluid Performing Organization Address [facility] one Number MAIN LAB [address] [place] [address] * POC GLUCOSE (11/27/2019 8:31 AM CDT) Glucose, POC 214 (H) 70 - 100 MG/DL [facility] LAB Specimen Performing Organization Address [facility] Ph one Number [facility] LAB [address] [place] [address] * CYTOLOGY FLUIDS (11/27/2019 8:30 AM CDT) Cytology [facility] [email or web address] Department of Pathology and Laboratory Medicine [address] [place] [address] Surgical Pathology Office: [phone] CYTOLOGY REPORT NAME: REFUGIO LOPEZ CYTOLOGY #: [id number] MR #: [id number] ALT ID #: BILLING #: [id number] LOCATION: DISCHARGED DATE OF PROCEDURE: 11/27/2019 AGE: 59 SEX: M DATE RECEIVED: 11/27/2019 : 1960 TIME RECEIVED: 14:19 PHYSICIAN: SHEILA LIEBERMAN MD DATE OF REPORT: 11/30/2019 COPY TO: ELIECER NOVAK MD DATE OF PRINTIN11/30/2019 Material Received: A: Cerebrospinal Fluid History: 59 year old male with a history of DLBCL. Gross Description: (1 ThinPrep) 2mLs of cloudy pale red fluid. ############################## ############################## ############ Final Diagnosis: A. Cerebrospinal Fluid: Negative for malignant cells. Please also see concurrent flow cytometry report ([id number]). Attestation: By this signature, I attest that I have personally formulated the final interpretation expressed in this report and that the above diagnosis is based upon my examination of the slides and/or other material indicated in this report. +++Electronically Signed Out By+++ rmp/11/30/2019 Interpreted by: Kelly Cisneros MD, PhD ANDREA WU, Fellow Specimen Cerebrospinal Fluid Performing Organization Address City/[facility] Ph one Number [facility] MAIN LAB [address] [place] [address] * PHOSPHORUS CELLULAR THERAPEUTICS (11/27/2019 5:06 AM CDT) Phosphorus 3.5 2.0 - 4.5 MG/DL K[facility] MAIN LAB Specimen Blood Performing Organization Address City/[facility] Ph one Number KU MAIN LAB [address] [place] [address] * MAGNESIUM CELLULAR THERAPEUTICS (11/27/2019 5:06 AM CDT) Magnesium 2.1 1.6 - 2.6 mg/dL K[facility] MAIN LAB Specimen Blood Performing Organization Address [facility] Ph one Number MAIN LAB [address] [place] [address] * COMPREHENSIVE METABOLIC PANEL CELLULAR THERAPEUTICS (11/27/2019 5:06 AM CDT) Sodium 140 137 - 147 MMOL/L K[facility] MAIN LAB Potassium 4.6 3.5 - 5.1 MMOL/L [facility] MAIN LAB Chloride 106 98 - 110 MMOL/L [facility] MAIN LAB Glucose 223 (H) 70 - 100 MG/DL [facility] MAIN LAB Blood Urea 12 7 - 25 MG/DL [facility] MAIN LAB Nitrogen Creatinine 0.72 0.4 - 1.24 MG/DL [facility] MAIN LAB Calcium 8.6 8.5 - 10.6 MG/DL [facility] MAIN LAB Total Protein 6.1 6.0 - 8.0 G/DL [facility] MAIN LAB Total Bilirubin 0.3 0.3 - 1.2 MG/DL [facility] MAIN LAB Albumin 3.9 3.5 - 5.0 G/DL [facility] MAIN LAB Alk Phosphatase 96 25 - 110 U/L [facility] MAIN LAB AST (SGOT) 15 7 - 40 U/L [facility] MAIN LAB CO2 28 21 - 30 MMOL/L [facility] MAIN LAB ALT (SGPT) 10 7 - 56 U/L [facility] MAIN LAB Anion Gap 6 3 - 12 [facility] MAIN LAB eGFR Non >60 >60 mL/min [facility] MAIN LAB Comment: [place] The eGFR is not validated f or use in drug dosing adjustments. Continue to use estimated creatinine clearance per dosing reference text. Please contact the Clinical Pharmacist for questions. eGFR >60 >60 mL/min [facility] MAIN LAB [place] Comment: The eGFR is not validated for use in drug dosing adjustments. Continue to use estimated creatinine clearance per dosing reference text. Please contact the Clinical Pharmacist for questions. Specimen Blood Performing Organization Address [facility] Ph one Number [facility] MAIN LAB [address] [place] [address] * CBC AND DIFF CELLULAR THERAPEUTICS (11/27/2019 5:06 AM CDT) White Blood 2.3 (L) 4.5 - 11.0 K/UL [facility] MAIN LAB Cells RBC 3.62 (L) 4.4 - 5.5 M/UL [facility] MAIN LAB Hemoglobin 11.5 (L) 13.5 - 16.5 GM/DL K[facility] MAIN LAB Hematocrit 33.5 (L) 40 - 50 % [facility] MAIN LAB MCV 92.4 80 - 100 FL [facility] MAIN LAB MCH 31.9 26 - 34 PG [facility] MAIN LAB MCHC 34.5 32.0 - 36.0 G/DL [facility] MAIN LAB RDW 13.9 11 - 15 % [facility] MAIN LAB Platelet Count 156 150 - 400 K/UL [facility] MAIN LAB MPV 7.0 7 - 11 FL [facility] MAIN LAB Neutrophils 82 (H) 41 - 77 % [facility] MAIN LAB Lymphocytes 15 (L) 24 - 44 % [facility] MAIN LAB Monocytes 2 (L) 4 - 12 % [facility] MAIN LAB Eosinophils 0 0 - 5 % [facility] MAIN LAB Basophils 1 0 - 2 % [facility] MAIN LAB Absolute 1.90 1.8 - 7.0 K/UL KU MAIN LAB Neutrophil Count Absolute Lymph 0.30 (L) 1.0 - 4.8 K/UL [facility] MAIN LAB Count Absolute 0.00 0 - 0.80 K/UL [facility] MAIN LAB Monocyte Count Absolute 0.00 0 - 0.45 K/UL [facility] MAIN LAB Eosinophil Count Absolute 0.00 0 - 0.20 K/UL [facility] MAIN LAB Basophil Count Specimen Blood Performing Organization Address [facility] Ph one Number [facility] MAIN LAB [address] [place] [address] * POC GLUCOSE (11/26/2019 9:31 PM CDT) Glucose, POC 265 (H) 70 - 100 MG/DL K[facility] MAIN LAB Specimen Performing Organization Address City/[facility] Ph one Number [facility] MAIN LAB [address] [place] [address] * POC GLUCOSE (11/26/2019 6:06 PM CDT) Glucose, POC 146 (H) 70 - 100 MG/DL MAIN LAB Specimen Performing Organization Address City/State/Zipcode Ph one Number MAIN LAB [address] [place] [address] * 2-D + DOPPLER ECHOCARDIOGRAM (11/26/2019 1:00 [...] OUTSIDE Provider LAB CV ECHO PV Payal BALDWIN OTHER OUTSIDE DELIVERY ASSOCIATE LAB E/A ratio 0.75 OTHER OUTSIDE LAB [...] Otherwise no significant changes. Performing Organization Address [facility] Ph one Number OTHER OUTSIDE LAB * POC GLUCOSE (11/26/2019 11:17 AM CDT) Glucose, POC 168 (H) 70 - 100 MG/DL K[facility] MAIN LAB Specimen Performing Organization Address [facility] Ph one Number KU MAIN LAB [address] [place] [address] * PHOSPHORUS CELLULAR THERAPEUTICS (11/26/2019 4:17 AM CDT) Phosphorus 5.3 (H) 2.0 - 4.5 MG/DL K[facility] MAIN LAB Specimen Blood Performing Organization Address [facility] one Number KU MAIN LAB [address] [place] [id number] * MAGNESIUM CELLULAR THERAPEUTICS (11/26/2019 4:17 AM CDT) Magnesium 2.0 1.6 - 2.6 mg/dL K[facility] MAIN LAB Specimen Blood Performing Organization Address [facility] one Number [facility]U MAIN LAB [address] [place] [address] * COMPREHENSIVE METABOLIC PANEL CELLULAR THERAPEUTICS (11/26/2019 4:17 AM CDT) Sodium 140 137 - 147 MMOL/L K[facility] MAIN LAB Potassium 4.0 3.5 - 5.1 MMOL/L [facility] MAIN LAB Chloride 105 98 - 110 MMOL/L [facility] MAIN LAB Glucose 107 (H) 70 - 100 MG/DL [facility] MAIN LAB Blood Urea 12 7 - 25 MG/DL [facility] MAIN LAB Nitrogen Creatinine 0.72 0.4 - 1.24 MG/DL [facility] MAIN LAB Calcium 8.7 8.5 - 10.6 MG/DL [facility] MAIN LAB Total Protein 5.9 (L) 6.0 - 8.0 G/DL [facility] MAIN LAB Total Bilirubin 0.4 0.3 - 1.2 MG/DL [facility] MAIN LAB Albumin 3.8 3.5 - 5.0 G/DL [facility] MAIN LAB Alk Phosphatase 95 25 - 110 U/L K[facility] MAIN LAB AST (SGOT) 13 7 - 40 U/L [facility] MAIN LAB CO2 28 21 - 30 MMOL/L [facility] MAIN LAB ALT (SGPT) 9 7 - 56 U/L [facility] MAIN LAB Anion Gap 7 3 - 12 K[facility] MAIN LAB eGFR Non >60 >60 mL/min [facility] MAIN LAB Comment: [place] The eGFR is not validated f or use in drug dosing adjustments. Continue to use estimated creatinine clearance per dosing reference text. Please contact the Clinical Pharmacist for questions. eGFR >60 >60 mL/min [facility] MAIN LAB [place] Comment: The eGFR is not validated for use in drug dosing adjustments. Continue to use estimated creatinine clearance per dosing reference text. Please contact the Clinical Pharmacist for questions. Specimen Blood Performing Organization Address City/State/Zipcode Ph one Number [facility]U MAIN LAB [address] [place] [address] * CBC AND DIFF CELLULAR THERAPEUTICS (11/26/2019 4:17 AM CDT) White Blood 2.9 (L) 4.5 - 11.0 K/UL K[facility] MAIN LAB Cells RBC 3.61 (L) 4.4 - 5.5 M/UL [facility] MAIN LAB Hemoglobin 11.4 (L) 13.5 - 16.5 GM/DL K[facility] MAIN LAB Hematocrit 33.5 (L) 40 - 50 % [facility] MAIN LAB MCV 92.9 80 - 100 FL [facility] MAIN LAB MCH 31.7 26 - 34 PG [facility] MAIN LAB MCHC 34.1 32.0 - 36.0 G/DL K[facility] MAIN LAB RDW 14.4 11 - 15 % [facility] MAIN LAB Platelet Count 153 150 - 400 K/UL [facility] MAIN LAB MPV 6.9 (L) 7 - 11 FL [facility] MAIN LAB Neutrophils 37 (L) 41 - 77 % [facility] MAIN LAB Lymphocytes 36 24 - 44 % [facility] MAIN LAB Monocytes 18 (H) 4 - 12 % [facility] MAIN LAB Eosinophils 8 (H) 0 - 5 % [facility] MAIN LAB Basophils 1 0 - 2 % [facility] MAIN LAB Absolute 1.10 (L) 1.8 - 7.0 K/UL K[facility] MAIN LAB Neutrophil Count Absolute Lymph 1.00 1.0 - 4.8 K/UL [facility] MAIN LAB Count Absolute 0.50 0 - 0.80 K/UL K[facility] MAIN LAB Monocyte Count Absolute 0.20 0 - 0.45 K/UL [facility] MAIN LAB Eosinophil Count Absolute 0.00 0 - 0.20 K/UL [facility] MAIN LAB Basophil Count Specimen Blood Performing Organization Address [facility] Ph one Number MAIN LAB [address] [place] [address] * POC GLUCOSE (11/25/2019 9:51 PM CDT) Glucose, POC 156 (H) 70 - 100 MG/DL K[facility] MAIN LAB Specimen Performing Organization Address [facility] Ph one Number MAIN LAB [address] [place] [address] * MRI HEAD WO/W CONTRAST (11/25/2019 8:59 PM CDT) Specimen Impressions Performed At No evidence of intracranial involvement by lymphoma. [facility] RAD RESULTS Approved by Jacqui Gillette M.D. o n 11/26/2019 9:16 AM By my electronic signature, I attest th at I have personally reviewed the images for this examination and formulated the interpretations and opinions expressed in this report Finalized by Mick Pittman M.D. on 08/2020 9:37 AM. Dictated by Jacqui Gillette M.D. on 11/26/2019 8:02 AM. Narrative Performed At EXAM: MRI BRAIN [facility] RAD RESULTS HISTORY: 59-year-old male, DLBCL with CEMENT CUTTER (spina l cord) involvement TECHNIQUE: Multiplanar and [...] MRI BRAIN HISTORY: 59-year-old male, DLBCL with CEMENT CUTTER (spinal cord) involvement TECHNIQUE: Multiplanar and multisequence [...] on 11/26/2019 8:02 AM. Performing Organization Address City/[facility] Ph one Number RAD RESULTS * VRE SCREEN (11/25/2019 2:30 PM CDT) Battery Name VRE SCREEN MAIN LAB Specimen PERIRECTAL SWAB MAIN LAB Description Special NONE MAIN LAB Requests Culture NO VRE ISOLATED MAIN LAB Report Status FINAL [facility] MAIN LAB 11/27/2019 Specimen Perirectal Swab Performing Organization Address City/[facility] Ph one Number MAIN LAB [address] [place] [address] documented in this encounter Visit Diagnoses Diagnosis Diffuse large B-cell lymphoma, unspecif ied body region (HCC) Coronary artery disease involving nativ e coronary artery of [place] heart without angina pectoris Chronic hepatitis C (HCC) Chronic hepatitis C without mention of hepatic coma DM (diabetes mellitus) (HCC) Type II or unspecified type diabetes me llitus without mention of complication, not stated as uncontrolled Pulmonary embolus (HCC) Other pulmonary embolism and infarction Heart failure with reduced ejection fra ction (HCC) documented in this encounter Administered Medications Action Date Dose Rate Site Medication Order MAR Action 11/28/2019 8:35 AM CDT 300 mg allopurinoL (ZYLOPRIM) tablet 300 mg Given 300 mg, Oral, DAILY, First dose on Jennifer 11/26/19 at 0900, Until Discontinued 300 mg Given 11/27/2019 11:00 AM CDT 300 mg Given 11/26/2019 9:11 AM CDT 11/28/2019 8:35 AM CDT 200 mg amiodarone (CORDARONE) tablet 200 mg Given 200 mg, Oral, DAILY, First dose on Jennifer 11/26/19 at 0900, Until Discontinued 200 mg Given 11/27/2019 11:00 AM CDT 200 mg Given 11/26/2019 9:10 AM CDT 11/28/2019 8:35 AM CDT 5 mg apixaban (ELIQUIS) tablet 5 mg Given 5 mg, Oral, TWICE DAILY, First dose on Sat11/27/19 at 2100, Until Discontinued , May crush 5 mg or 2.5 mg tablets and suspend in 60 mL of D5W followed by immediate delivery through a nasogastri c tube. No information regarding administration of suspension by mouth i s available. NOTE: This is a HIGH ALERT Medication., 5 mg Given 11/27/2019 9:27 PM CDT 11/26/2019 3:04 PM CDT 130 mg aprepitant emulsion (CINVANTI) 7.2 mg/mL Given injection 130 mg 130 mg, Intravenous, ONCE, 1 dose, Jennifer 11/26/19 at 1400, - Use immediately afte r drawn into syringe. - Give IV push over 2 minutes., 11/28/2019 8:35 AM CDT 40 mg atorvastatin (LIPITOR) tablet 40 mg Given 40 mg, Oral, DAILY, First dose on Jennifer 11/26/19 at 0900, Until Discontinued 40 mg Given 11/27/2019 11:01 AM CDT 40 mg Given 11/26/2019 9:10 AM CDT 11/26/2019 7:11 PM CDT 19.9 mL/hr CISplatin (PLATINOL) 228 mg in sodium Dose/Rate chloride 0.9% (NS) 478 mL IVPB Verify 228 mg (100 mg/m2 2.28 m2 Treatment plan recorded BSA), Intravenous, 478 mL, Administer over 24 Hours, ONCE, 1 dose, [facility] 11/26/19 at 1430, NURSING: To be administered by Chemotherapy Competency-validated nurse . NOTE: This is a HIGH ALERT Medication. SPECIAL TUBING REQUIRED , 228 mg 19.9 mL/hr Given - New Bag 11/26/2019 3:53 PM CDT 11/28/2019 8:41 AM CDT 75 mg clopiDOGrel (PLAVIX) tablet 75 mg Given 75 mg, Oral, DAILY, First dose on Jennifer 11/26/19 at 2100, Until Discontinued, This Medication can increase the risk o f bleeding and may need to be held prior to surgery or invasive procedures. Consult physician in advance., 75 mg Given 11/27/2019 11:02 AM CDT 11/28/2019 5:21 AM CDT 10 mg cyclobenzaprine (FLEXERIL) tablet 10 mg Given 10 mg, Oral, THREE TIMES DAILY PRN, Starting Sat11/25/19 at 1647, Until Sat11/28/19 at 1501, Muscle Cramps 10 mg Given 11/27/2019 9:27 PM CDT 10 mg Given 11/26/2019 9:36 PM CDT 11/28/2019 7:30 AM CDT 4,560 mg 98.5 mL/hr cytarabine (CYTOSAR) 4,560 mg in sodium Given - New chloride 0.9% (NS) 295.6 mL IVPB(C100) Bag 4,560 mg (2 g/m2 2.28 m2 Treatment plan recorded BSA), Intravenous, 295.6 mL, Administer over 3 Hours, EVERY 12 HOURS, 2 doses, First dose on Sat11/27/19 at 1900, Last dose on Sat11/28/19 at 0700, NURSING: To be administered by Chemotherapy Competency-validated nurse. NOTE: This is a HIGH ALERT Medication. SPECIAL TUBING REQUIRED , 4,560 mg 98.5 mL/hr Given - New Bag 11/27/2019 6:32 PM CDT 11/28/2019 8:35 AM CDT 40 mg dexAMETHasone (DECADRON) tablet 40 mg Given 40 mg, Oral, DAILY, 4 doses, First dose (after last modification) on Jennifer 0 at 1400, Last dose on Sat11/29/19 at 0900 40 mg Given 11/27/2019 11:01 AM CDT 40 mg Given 11/26/2019 3:04 PM CDT 11/25/2019 9:42 PM CDT 1 patch Back, Up per Right fentaNYL (DURAGESIC) 75 mcg/hr patch 1 Patch/Topica patch l Applied 1 patch, Transdermal, Administer over 7 2 Hours, EVERY 72 HOURS, First dose on 11/25/19 at 1800, Until Discontinued 11/28/2019 12:42 PM CDT 300 mg gabapentin (NEURONTIN) capsule 300 mg Given 300 mg, Oral, EVERY 8 HOURS, First dos e on Sat11/25/19 at 1700, Until Discontinued 300 mg Given 11/28/2019 5:21 AM CDT 300 mg Given 11/27/2019 9:27 PM CDT 11/25/2019 8:36 PM CDT 20 mL gadobenate dimeglumine (MULTIHANCE) Given injection 20 mL 20 mL, Intravenous, ONCE, 1 dose, 11/25/19 at 2100, NOTE: This is a HIGH ALERT Medication., 11/28/2019 12:42 PM CDT 500 Units HEPARIN, PORCINE (PF) 100 UNIT/ML IV Given SYRG (Cabinet Override) NOW, 1 dose, 11/28/19 at 1245, Created by cabinet override NOTE: This is a HIGH ALERT Medication., Created by cabinet override, 11/28/2019 8:36 AM CDT 2 Units Abdomina l Tissue insulin aspart U-100 (NOVOLOG FLEXPEN) Given injection PEN 0-6 Units 0-6 Units, Subcutaneous, BEFORE MEALS AND 2200, First dose on Sat11/25/19 at 1700, Until Discontinued, -POC glucose 181-220mg/dL at , , administer 1 unit insulin, at 22, 03* administer 0 units. -POC glucose 221-260mg/dL at , , administer 2 units insulin, at 22, 03* administer 1 unit. -POC glucose 261-300mg/dL at , administer 3 units insulin, at 22, 03* administer 2 units. -POC glucose 301-350mg/dL at , , administer 4 units insulin, at 22, 03* administer 3 units. -POC glucos e 351-400mg/dL at administer 5 units insulin, at 22, 03* administer 4 units. -POC glucose >400mg/dL at , , administer 6 units insulin, at 22, 03* administer 5 units. *only if ordered 5x's daily For POCT glucose >350mg/dL give correction bolus and recheck POCT glucose in 2 hours. If POC T glucose at 2 hours >300mg/dL call physician for further orders. For patients who are not eating meals, continue to administer the appropriate correction factor. NOTE: This is a HIGH ALERT Medication., Dispense pens manually with initial order and then upon request. DO NOT uncheck "Do not dispense", 2 Units Abdominal Tissue Given 11/27/2019 9:26 PM CDT 3 Units Abdominal Tissue Given 11/27/2019 6:25 PM CDT 11/27/2019 9:27 PM CDT 5 mg melatonin tablet 5 mg Given 5 mg, Oral, AT BEDTIME PRN, Starting We d 11/25/19 at 1647, Until 11/28/19 at 1501, Insomnia 5 mg Given 11/26/2019 9:36 PM CDT 5 mg Given 11/25/2019 9:48 PM CDT 11/27/2019 9:45 AM CDT 12 mg methotrexate PF 12 mg in sodium chloride Given PF 0.9% 5 mL IT syringe 12 mg, 5 mL, Intrathecal, ONCE, 1 dose, Sat11/27/19 at 0900, + TO BE GIVEN IN I R + INTRATHECAL NOTE: This is a HIG H ALERT Medication., 11/28/2019 8:35 AM CDT 150 mg metoprolol XL (TOPROL XL) tablet 150 mg Given 150 mg, Oral, DAILY, First dose on Jennifer 11/26/19 at 0900, Until Discontinued, Hold for heart rate < 60 bpm or SBP < 100 tablets may be cut in half, DO NOT CRUSH or CHEW, 150 mg Given 11/27/2019 11:01 AM CDT 150 mg Given 11/26/2019 9:14 AM CDT 11/28/2019 12:42 PM CDT 16 mg ondansetron (ZOFRAN) tablet 16 mg Given 16 mg, Oral, EVERY 24 HOURS, 3 doses, First dose (after last modification) on Jennifer 11/26/19 at 1400, Last dose on 11/28/19 at 1400 16 mg Given 11/27/2019 4:19 PM CDT 16 mg Given 11/26/2019 3:04 PM CDT 11/28/2019 12:43 PM CDT 10 mg oxyCODONE (ROXICODONE) tablet 5-10 mg Given 5-10 mg, Oral, EVERY 3 HOURS PRN, Starting 11/25/19 at 1647, Until 11/28/19 at 1501, Pain PO 10 mg Given 11/28/2019 8:34 AM CDT 10 mg Given 11/28/2019 5:21 AM CDT 11/28/2019 8:35 AM CDT [address] (PROTONIX) tablet 40 mg Given 40 mg, Oral, DAILY, First dose on Sat11/26/19 at 0900, Until Discontinued, Do not crush or chew tablet., 40 mg Given 11/27/2019 11:00 AM CDT 40 mg Given 11/26/2019 9:10 AM CDT 11/26/2019 12:54 PM CDT 2.5 Diluted mL perflutren lipid microspheres (DEFINITY) Given injection 1-20 Diluted mL 1-20 Diluted mL, Intravenous, ONCE PRN, 1 dose, Starting Sat11/26/19 at 1242, Until Sat11/26/19 at 1254, For Procedure, A gas golf cart repairer may only administer Definity through a saline lock. If IV is in use or a port, PICC, or central line is being used a nurse must administer. NOTE: This is a HIGH ALERT Medication., MAC Procedure Area Only - Medications 11/28/2019 5:24 AM CDT 2 drops prednisolone acetate (PRED FORTE) 1 % Given ophthalmic suspension 2 drop 2 drop, Both Eyes, EVERY 6 HOURS, 20 doses, First dose on Sat11/26/19 at 1800, Last dose on Sat12/01/19 at 1200 2 drops Given 11/27/2019 11:59 PM CDT 2 drops Given 11/27/2019 6:25 PM CDT 11/28/2019 8:41 AM CDT 1 tablet sacubitriL-valsartan (ENTRESTO) 24-26 mg Given tablet 1 tablet 1 tablet, Oral, TWICE DAILY, First dose on Sat11/25/19 at 2100, Until Discontinued 1 tablet Given 11/27/2019 9:27 PM CDT 1 tablet Given 11/27/2019 11:02 AM CDT 11/28/2019 8:35 AM CDT 1 tablet senna/docusate (SENOKOT-S) tablet 1 Given tablet 1 tablet, Oral, TWICE DAILY, First dose on Sat11/25/19 at 2100, Until Discontinued, Hold for loose stools, 1 tablet Given 11/27/2019 9:27 PM CDT 1 tablet Given 11/27/2019 11:07 AM CDT 11/28/2019 4:21 AM CDT 100 mL/hr sodium chloride 0.9 % infusion Given - New 1,000 mL, Intravenous, at 100 mL/hr, Bag CONTINUOUS, Starting Jennifer 11/26/19 at 1145, Until 11/28/19 at 1501 100 mL/hr Given - New Bag 11/27/2019 6:24 PM CDT 100 mL/hr Given - New Bag 11/27/2019 8:06 AM CDT 11/27/2019 4:15 PM CDT 500 mL/hr sodium chloride 0.9% (NS) 1,000 mL with Given - New potassium chloride 20 mEq, magnesium Bag sulfate 2 g IV infusion 1,000 mL, Intravenous, at 500 mL/hr, ONCE, 1 dose, 11/27/19 at 1430, Run over 2 hours following continuous infusion of cisplatin., 11/28/2019 8:35 AM CDT 25 mg spironolactone (ALDACTONE) tablet 25 mg Given 25 mg, Oral, DAILY, First dose on Jennifer 11/26/19 at 0900, Until Discontinued, NURSING: Please educate patient and document: Avoid using salt substitutes which have a high potassium content (Nu-Salt)., 25 mg Given 11/27/2019 11:00 AM CDT 25 mg Given 11/26/2019 9:10 AM CDT documented in this encounter
--- OUTSIDE RECORDS SUMMARY | 2019-12-07 05:00 | XMS REPORT | Encounter Summary ---
Author Author [facility] Organization [facility] Address Unknown Phone Unavailable Care Team Providers Care Reel Winder Name Role Phone Bertin Cole DO PCP Madison [place] Un[place] [address] Shira Castanon MD 100 Encounter Details Care Team Description Date Type Department Lyn Garcia MD [address] [place] [address] [phone] 12/01/2019 Orders Only The [address] [address] Social History Date Tobacco Use Types Packs/Day [...] history available. documented as of this encounter Functional Status Date of Assessment Functional Status Response 11/25/2019 Does the patient have a hearing impairment: No 05/19/2019 Does the patient have a visual impairment: Yes documented as of this encounter Plan of Treatment Not on filedocumented as of this encounter Goals Goal Patient Associated Recent Progress Patient-Stat Aut hor Goal Type Problems ed? GOAL General No Carmelina Jeffrey RN Note: Back to work GOAL General Yes Selam Kirk RN Note: "To get better and beat this disease" documented as of this encounter Visit Diagnoses Not on filedocumented in this encounter
--- OUTSIDE RECORDS SUMMARY | 2019-12-07 05:00 | XMS REPORT | Encounter Summary ---
Author Author [facility] Organization [facility] Address Unknown Phone Unavailable Care Team Providers Care Boomboat Operator Name Role Phone Bertin Cole DO PCP Madison [place] Un[place] [address] Shira Castanon MD 100 Reason for Visit * Reason Comments On-call Encounter Details Care Team Description Date Type Department Sharona Roth Md, MBBS [address] [place] [id number] On-call 12/03/2019 Telephone [id number] Social History Date Tobacco Use Types Packs/Day [...] impairment: Yes documented as of this encounter Miscellaneous Notes * Telephone Encounter - Shraona Roth Md, MBBS - 12/03/2019 10:[address] Tyson called to report that the patients eGFR was >60 before discharge from the hospital. He was asked to follow up with labs which was done at [facility] and eGFR down to 17. Dr. Tyson told that they will bring the patient in tomorrow to hydrate with 1 L f luid but wanted [facility] team to know and to contact the patient tomorrow for further direction. Note routed to Dr. Garcia. Robel Roth Fellow, Hem/Onc T documented in this encounter Plan of Treatment Not on filedocumented as of this encounter Goals Goal Patient Associated Recent Progress Patient-Stat Aut hor Goal Type Problems ed? GOAL General No Carmelina Jeffrey, RN Note: Back to work GOAL General Yes Selam Kirk, RN Note: "To get better and beat this disease" documented as of this encounter Visit Diagnoses Not on filedocumented in this encounter
--- OUTSIDE RECORDS SUMMARY | 2019-12-07 05:00 | XMS REPORT | Encounter Summary ---
Author Author [facility] Organization [facility] Address Unknown Phone Unavailable Care Team Providers Care Glue Jointer Operator Name Role Phone Bertin Cole DO PCP Madison [place] Un[place] [address] Shira Castanon MD 100 Encounter Details Care Team Description Date Type Department Yesica Shah RN 12/04/2019 Documentation The [address] [place] [phone] Social History Date Tobacco Use Types Packs/Day [...] impairment: Yes documented as of this encounter Progress Notes * Yesica Shah RN - 12/04/2019 3:51 PM CDT Spoke with RN again, and she stated his ANC is 200, and his WBC is 0.4. Luis brown that he was on anti-infectives, including Levaquin. She did not have an updat ed med list, so faxed to her. She stated he will have repeat labs on Saturday and will fax all labs to us. Dr Jiang will be out of the office next week on spr ing break, but their JAVID will follow him, and if needed wthey will call and get him sent to for further treatment. They do not have access to a community integration specialist locally. * Yesica Shah RN - 12/04/2019 3:[address] Carter office called and stated his renal US was normal, he is still ret aining urine, so they placed a ortiz catheter. He has a urology appt on Thursday 12/07. They faxed the results. His GFR is 13, down from 60. Emailed this update to Dr Chong. documented in this encounter Plan of Treatment [...]
--- OUTSIDE RECORDS SUMMARY | 2019-12-07 05:01 | XMS REPORT | Encounter Summary ---
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 one Number [facility] [address] [place] [address] * COMPREHENSIVE METABOLIC PANEL (11/25/2019 7:55 AM CDT) [facility] Sodium 139 137 - 147 MMOL/L [facility] Potassium 4.4 3.5 - 5.1 MMOL/L [facility] Chloride 103 98 - 110 MMOL/L [facility] Glucose 124 (H) 70 - 100 MG/DL [facility] Blood Urea 14 7 - 25 MG/DL [facility] Nitrogen Creatinine 0.71 0.4 - 1.24 MG/DL [facility] Calcium 9.1 8.5 - 10.6 MG/DL [facility] Total Protein 6.5 6.0 - 8.0 G/DL [facility] Total Bilirubin 0.3 0.3 - 1.2 MG/DL [facility] Albumin 4.2 3.5 - 5.0 G/DL [facility] Alk Phosphatase 110 25 - 110 U/L [facility] AST (SGOT) 14 7 - 40 U/L [facility] CO2 30 21 - 30 MMOL/L [facility] ALT (SGPT) 11 7 - 56 U/L [facility] Anion Gap 6 3 - 12 [facility] eGFR Non >60 >60 mL/min [facility] Comment: [place] The eGFR is not validated f or use in drug dosing adjustments. Continue to use estimated creatinine clearance per dosing reference text. Please contact the Clinical Pharmacist for questions. eGFR >60 >60 mL/min [facility] [place] Comment: The eGFR is not validated for use in drug dosing adjustments. Continue to use estimated creatinine clearance per dosing reference text. Please contact the Clinical Pharmacist for questions. Specimen Blood Performing Organization Address [facility] one Number [facility] [address] [place] [address] * CBC AND DIFF (11/25/2019 7:55 AM CDT) [facility] White Blood 3.9 (L) 4.5 - 11.0 K/UL [facility] Cells RBC 3.90 (L) 4.4 - 5.5 M/UL [facility] Hemoglobin 12.4 (L) 13.5 - 16.5 GM/DL [facility] Hematocrit 36.8 (L) 40 - 50 % [facility] MCV 94.4 80 - 100 FL [facility] MCH 31.8 26 - 34 PG [facility] MCHC 33.7 32.0 - 36.0 G/DL [facility] RDW 14.2 11 - 15 % [facility] Platelet Count 198 150 - 400 K/UL [facility] MPV 6.6 (L) 7 - 11 [...] Performing Organization Address City/State/Zipcode Ph one Number [facility] [address] [place] [address] documented in this encounter Visit Diagnoses Diagnosis Diffuse large B-cell lymphoma of lymph nodes of multiple regions (HCC) documented in this encounter
--- OUTSIDE RECORDS SUMMARY | 2019-12-07 05:01 | XMS REPORT | Encounter Summary ---
Author Author [facility] Organization [facility] Address Unknown Phone Unavailable Care Team Providers Care Tanning Solution Maker Name Role Phone Bertin Cole DO PCP Madison [place] Un[place] [address] Shira Castanon MD 100 Reason for Visit * Reason Comments Follow Up * Auth/Cert Referred By Contact Referred To Contact Status Reason Specialty Diagnoses / Procedures Diagnoses DLBCL (diffuse large B cell lymphoma) (HCC) DLBCL Encounter Details Care Team Description Date Type Department Lyn Garcia MD [address] [place] [address] [phone] 11/25/2019 Office Visit The [facility] [address] [address] Social History Date Tobacco Use Types Packs/Day [...] Signs Reading Time Taken Comments Vital Sign 116/77 11/25/2019 8:56 AM CDT Blood Pressure 77 11/25/2019 8:56 AM CDT Pulse 36.6 C (97.8 F) 11/25/2019 8:56 AM CDT Temperature 16 11/25/2019 8:56 AM CDT Respiratory Rate 98% 11/25/2019 8:56 AM CDT Oxygen Saturation - - Inhaled Oxygen Concentration 101.3 kg (223 lb 6.4 oz) 11/25/2019 8:56 AM CDT Weight 185.4 cm (6' 0.99") 11/25/2019 8:56 AM CDT Height 29.48 11/25/2019 8:56 AM CDT Body Mass Index documented in this encounter Functional Status Date of Assessment Functional Status Response 11/25/2019 Does the patient have a hearing impairment: No 05/19/2019 Does the patient have a visual impairment: Yes documented as of this encounter Patient Instructions * Patient Instructions* Celeste Mayfield RN - 11/25/2019 9:00 AM CDT Your care team: Dr. Lyn Garcia Enterprise Security Architect Jacqui Griffin APRN-ACLS NURSE Hematology Nurse Practitioner Clinical Nurse Coordinators (CNC's) Celeste Mayfield RN, BSN Rosette Pandey RN, BSN Mychart: - We strongly recommend signing up for [email or web address], our patient access portal, and s ending us non-urgent questions/concerns through this portal. We will reply withi n one business day. - This is also a great resource to view all of your labs and scan results. - Please feel free to ask our cabinetmaker supervisor upon checkout for help setting up your [email or web address] access. Notify Clinic for the Following: ? Fevers at or greater than 100.5 degrees (do not take Tylenol until you have sp oken to a provider) ? Persistent or uncontrolled vomiting ? Persistent or uncontrolled diarrhea (more than 6 watery stools per day) or sig ns of blood in stools ? Progressive cough with increased sputum (phlegm or mucus) production accompani ed by increased shortness of breath ? Recurrent nosebleeds or nosebleeds that lasts longer than 30 minutes. ? Severe mouth sores/mouth pain ? Severe constipation without a bowel movement in 4-5 days or significant strain ing. Phone numbers: [phone] Jazmin Alonso & Rosette: [phone] Garcia's nurse line if you have non-urgent questions or co ncerns during business hours. Messages left on nurses line are checked Saturday through Saturday between the hours of 8:00 AM and 3:30 PM. Messages left after 3:30 pm will be returned the follow ing day. Evening (after 4:00 PM), weekends, and holiday on-call: [phone] For urgent needs after hours, please ask for the oncologist on-call to be paged. For urgent needs during business hours, please ask for Celeste or Rosette, Dr. Keri ordoñez's and Jacqui Griffin's nurse coordinators, to be paged. Notes: - Allow 7-10 business days for our office to complete any requested paperwork (F MLA, etc.) - Allow two to three business days for all medication refills. Please call your pharmacy first to check for available refills. documented in this encounter Miscellaneous Notes * Patient Education - Apolinar Abdi, PHARMD - 11/25/2019 9:00 AM CDT Chemotherapy Education Provided patient with written and verbal education regarding rituximab + dexamet hasone + cytarabine + cisplatin (R-DHAP) chemotherapy for the treatment of cance r. Reviewed chemotherapy schedule. Patient will receive chemotherapy as follows: Dexamethasone 40mg by mouth days 1, 2, 3 & 4 Cisplatin IV over 24 hours on Day 1 Cytarabine IV over 3 hours for 2 doses on Day 2 Rituximab IV per policy - will be given w/ Dr. Jeffrey @ OSH Peg-filgrastim - will be given w/ Dr. Jeffrey @ OSH Reviewed side effects of chemotherapy, including - but not limited to: Low blood counts (explained associated risk for infection, bleeding, bruising , fatigue) Nausea and vomiting (explained purpose of scheduled antiemetics before chemot herapy and the use of PRNs in the event of breakthrough nausea & vomiting) Kidney toxicity (explained purpose of IV hydration and the importance of main taining oral intake and frequent urination) Changes in lab tests (explained that the medical team will be monitoring lab values closely) Hair loss Difficulty hearing / hearing loss / ringing in the ears Conjunctivitis - prednisone eye drops Peripheral neuropathy Changes in bowel habits / poor appetite / mouth sores & mucositis / taste changes Skin changes / rash Mouth sores Neurotoxicity Discussed potential for nausea/vomiting and decreased appetite. Explained that p atient will receive anti-emetics prior to each dose of chemotherapy. Advised pat ient to let us know if these antiemetics are not working properly so that things can be adjusted if needed. Encouraged patient to keep up adequate water/nutriti on intake. Discussed potential for bowel changes. Instructed the patient to contact a provi david in the event of experiencing diarrhea. A stool sample may need to be provide d to rule out infection. If infection is ruled out, providers may allow for anti diarrheals to be utilized for symptomatic relief. In the event of constipation, providers may allow for the use of OTC stool softeners/stimulants/laxatives. Discussed the potential for cytarbine-induced neurotoxicity. Advised patient nisha t this may present as dizziness, headache, excessive sleepiness, confusion, loss of balance, or seizures. Encouraged caregiver(s) to monitor patient closely and to call in the event of sudden onset of confusion or other mental status changes that may be an indication of the neurotoxicity. Discussed potential for cytarbine-induced skin changes, especially on the palms of hands or soles of feet. Patient advised to report a new or worsening rash. When administered at high doses, cytarabine has the potential to cause conjuncti vitis. Explained the role of the steroid eye drops and the importance of the sintia ps scheduled administration. Patient advised to report any irritation or visi on changes. Reviewed potential need for platelet and blood transfusions as counts will be lo w during chemotherapy and during recovery period. Cautioned patient to be carefu l when brushing one's teeth to avoid gum bleeding and advised that there is a hi gher risk for bruising and bleeding. While the incidence of infusion hypersensitivity reactions secondary to the chem otherapy, cautioned patient about this potential and advised patient to report i mmediately any swelling, burning, pain, or redness at the infusion site, any tro uble breathing, or any chest pain. Patient voiced understanding about the provided information. All questions/koko rns addressed at this time. Medication handout(s) provided. documented in this encounter Plan of Treatment Not on filedocumented as of this encounter Goals Goal Patient Associated Recent Progress Patient-Stat Aut hor Goal Type Problems ed? GOAL General No Carmelina Jeffrey RN Note: Back to work GOAL General Yes Foster, Selam, RN Note: "To get better and beat this disease" documented as of this encounter Visit Diagnoses Not on filedocumented in this encounter
--- OUTSIDE RECORDS SUMMARY | 2019-12-07 05:01 | XMS REPORT | Encounter Summary ---
Author Author [facility] Organization [facility] Address Unknown Phone Unavailable Care Team Providers Care Scrummaster Name Role Phone Bertin Cole DO PCP Madison [place] [id number] Shira Castanon MD 100 Reason for Visit * Reason Comments Labs Only labs + port flush * Auth/Cert Referred By Contact Referred To Contact Status Reason Specialty Diagnoses / Procedures Diagnoses DLBCL (diffuse large B cell lymphoma) (HCC) DLBCL Encounter Details Care Team Description Date Type Department Lyn Garcia MD [address] [place] [address] [phone] Diffuse large B-cell lymphoma of lymph n odes of multiple regions (HCC) 11/25/2019 Nurse Only [facility] [address] [id number] Social History Date Tobacco Use Types Packs/Day [...] to work GOAL General Yes Selam Kirk, DENNY Note: "To get better and beat this disease" documented as of this encounter Procedures Comments Procedure Name Priority Date/Time Associated Diag nosis HC CBC W/ AUTOMATED DIFF Routine 11/25/2019 Diffu se large B-cell 7:55 AM CDT lymphoma of lymph nodes of multiple regions (HCC) HC LDH Routine 11/25/2019 Diffuse large B -cell 7:55 AM CDT lymphoma of lymph nodes of multiple regions (HCC) HC COMPREHENSIVE Routine 11/25/2019 Diffuse large B-cell METABOLIC PANEL 7:55 AM CDT lymphoma of lymph n odes of multiple regions (HCC) documented in this encounter Results * CBC AND DIFF (11/25/2019 7:55 AM CDT) White Blood 3.9 (L) 4.5 - 11.0 [...] Absolute 0.20 0 - 0.45 K/UL [facility] Eosinophil Count Absolute 0.10 0 - 0.20 K/UL [facility] Basophil Count Specimen Blood Performing Organization Address [facility] one Number [facility] [address] [place] [address] * COMPREHENSIVE METABOLIC PANEL (11/25/2019 7:55 AM CDT) Sodium 139 137 - 147 MMOL/L [facility] Potassium 4.4 3.5 - 5.1 MMOL/L [facility] Chloride 103 98 - 110 MMOL/L [facility] Glucose 124 (H) 70 - 100 MG/DL [facility] Blood Urea 14 7 - 25 MG/DL [facility] Nitrogen Creatinine 0.71 0.4 - 1.24 MG/DL [facility] Calcium 9.1 8.5 - 10.6 MG/DL [facility] Total Protein 6.5 6.0 - 8.0 G/DL [facility] Total Bilirubin 0.3 0.3 - 1.2 MG/DL [facility] Albumin 4.2 3.5 - 5.0 G/DL [facility] Alk Phosphatase 110 25 - 110 U/L [facility] AST (SGOT) 14 7 - 40 U/L [facility] CO2 30 21 - 30 MMOL/L [facility] ALT (SGPT) 11 7 - 56 U/L [facility] Anion Gap 6 3 - 12 [facility] eGFR Non >60 >60 mL/min [facility] Comment: [place] The eGFR is not validated f or use in drug dosing adjustments. Continue to use estimated creatinine clearance per dosing reference text. Please contact the Clinical Pharmacist for questions. eGFR >60 >60 mL/min [facility] [place] Comment: The eGFR is not validated for use in drug dosing adjustments. Continue to use estimated creatinine clearance per dosing reference text. Please contact the Clinical Pharmacist for questions. Specimen Blood Performing Organization Address [facility] one Number [facility] [address] [place] [address] * LDH-LACTATE DEHYDROGENASE (11/25/2019 7:55 AM CDT) Lactate 146 100 - 210 U/L [facility] Dehydrogenase Specimen Blood Performing Organization Address [facility] one Number [facility] [address] [place] [address] documented in this encounter Visit Diagnoses Diagnosis Diffuse large B-cell lymphoma of lymph nodes of multiple regions (HCC) documented in this encounter
--- OUTSIDE RECORDS SUMMARY | 2019-12-07 05:01 | XMS REPORT | Encounter Summary ---
Author Author [facility] Organization [facility] Address Unknown Phone Unavailable Care Team Providers Care Transit Bus Operator Name Role Phone Bertin Cole PCP Madison [place] Un[place] [id number] Shira Castanon MD 100 Reason for Visit * Auth/Cert Referred By Contact Referred To Contact Status Reason Specialty Diagnoses / Procedures Diagnoses Diffuse large B cell lymphoma (HCC) DLBCL Encounter Details Care Team Description Date Type Department Oleg Moreland, [address] [facility] [address] [place] [address] Diffuse large B cell lymphoma (HCC) 11/11/2019 [facility] 11/13/[address] [place], [place] [id number] Social History Date Tobacco Use Types Packs/Day [...] Signs Reading Time Taken Comments Vital Sign 113/76 11/13/2019 5:10 PM PAINT DEPARTMENT SUPERVISOR Blood Pressure 89 11/13/2019 5:10 PM PAINT DEPARTMENT SUPERVISOR Pulse 37.1 C (98.7 F) 11/13/2019 5:07 PM PAINT DEPARTMENT SUPERVISOR Temperature - - Respiratory Rate 96% 11/13/2019 5:07 PM PAINT DEPARTMENT SUPERVISOR Oxygen Saturation - - Inhaled Oxygen Concentration 99.2 kg (218 lb 11.1 oz) 11/13/2019 5:05 AM PAINT DEPARTMENT SUPERVISOR Weight 185.4 cm (6' 0.99") 11/11/2019 2:00 PM PAINT DEPARTMENT SUPERVISOR Height 28.86 11/11/2019 2:00 PM PAINT DEPARTMENT SUPERVISOR Body Mass Index documented in this encounter Functional Status Date of Assessment Functional Status Response 11/11/2019 Does the patient have a hearing impairment: No 05/19/2019 Does the patient have a visual impairment: Yes documented as of this encounter Discharge Summaries * Trevor Amin MD - 11/13/2019 5:53 PM PAINT DEPARTMENT SUPERVISOR Physician Discharge Summary Name: Refugio Lopez Date Of : 1960 Age: 59 years Admit date: 11/11/2019 Discharge date: 11/13 Attending Physician: Dr Moreland Service: Hematology Physician Summary completed by: Trevor Amin MD Reason for hospitalization: DLBCL Significant PMH: Medical History: Diagnosis Date Back pain CAD (coronary artery disease) Cardiomyopathy (HCC) Chronic hepatitis C (HCC) DM (diabetes mellitus) (HCC) Essential hypertension GERD (gastroesophageal reflux disease) Multiple myeloma and immunoproliferative neoplasms (HCC) Allergies: Patient has no known allergies. Admission Physical Exam notable for: None Admission Lab/Radiology studies notable for: Nm Pet Scan Torso (skull-thighs) Result Date: 11/11/2019 1. Decreased heterogeneous marrow hypermetabolism. Small mildly hypermetabolic f ocus within the right posterior T9 vertebral body not exceeding background hepat ic activity. Interval visualization of more focally intense FDG avidity along th e left posterior iliac crest, likely corresponding to bone marrow biopsy site. 2 . Development of two adjacent small hypermetabolic nodular left paravertebral fo ci within the lumbosacral fossa at the level of the L5 vertebral body. Findings are indeterminate and may reflect minimal residual and/or new sites of disease v ersus inflammatory uptake. Follow-up PET/CT recommended in 3 months (or accordin g to clinical protocol) for reassessment. 5PS = X or 5. By my electronic signatu re, I attest that I have personally reviewed the images for this examination and formulated the interpretations and opinions expressed in this report Finalized by Trevor Fernández M.D. on 11/11/2019 10:34 AM. Dictated by Radha Haley MD on 11/11/2019 8:24 AM. Brief Hospital Course: Refugio Lopez is a 59 y.o. male w/ PMH DM, cad s/p de s, hep c s/p tx, htn, DLBCL who was admitted from clinic following restaging PET concerning for new hypermetabolic lesions, and associated night sweats, progres sive lower back pain, and generalized weakness. He underwent MRI for further ch aracterization, followed by IR guided biopsy of the lesions at L4, T9. Bone mar row biopsy was also obtained. He was discharged to home w/ f/u in clinic for res ults. Condition at Discharge: Stable Discharge Diagnoses: DLBCL Hospital Problems Active Problems Diffuse large B cell lymphoma (HCC) Surgical Procedures: None Significant Diagnostic Studies and Procedures: noted in brief hospital course Consults: None Patient Disposition: Home Patient instructions/medications: [...] ting, difficulty breathing, chest pain, severe abdominal pain or headache Questions About Your Stay For questions or concerns regarding your hospital stay, call [phone]. Discharging attending physician: OLEG MORELAND [[id number]] Regular Diet You have no dietary restriction. Please continue with a healthy balanced diet. Current Discharge Medication List CONTINUE these medications which have been CHANGED or REFILLED Details amiodarone (CORDARONE) 200 mg tablet Take one tablet daily. Qty: 30 tablet, Refills: 1 PRESCRIPTION TYPE: Normal apixaban (ELIQUIS) 5 mg tablet Take one tablet by mouth twice daily. Start on Holly nday 11/15/2019 Qty: 60 tablet, Refills: 0 PRESCRIPTION TYPE: No Print fentaNYL (DURAGESIC) 75 mcg/hr patch Apply one patch to top of skin as directed every 72 hours Qty: 3 patch, Refills: 0 PRESCRIPTION TYPE: Print furosemide (LASIX) 20 mg tablet Take one tablet by mouth every morning. Qty: 90 tablet, Refills: 0 PRESCRIPTION TYPE: Normal melatonin 5 mg tab Take one tablet by mouth at bedtime as needed. Qty: 30 tablet, Refills: 0 PRESCRIPTION TYPE: Normal oxyCODONE (ROXICODONE) 5 mg tablet Take one tablet to two tablets by mouth every 3 hours as needed Qty: 20 tablet, Refills: 0 PRESCRIPTION TYPE: Print CONTINUE these medications which have NOT CHANGED Details acetaminophen (TYLENOL) 325 mg tablet Take two tablets by mouth every 6 hours as needed. Max dose of 4000 mg daily Qty: 30 tablet, Refills: 0 PRESCRIPTION TYPE: Normal acyclovir (ZOVIRAX) 400 mg tablet Take 400 mg by mouth twice daily. PRESCRIPTION TYPE: Historical Med allopurinol (ZYLOPRIM) 300 mg tablet Take one tablet by mouth daily. Take with f ood. Qty: 90 tablet, Refills: 3 PRESCRIPTION TYPE: Normal atorvastatin (LIPITOR) 40 mg tablet Take one tablet by mouth daily. Qty: 90 tablet, Refills: 3 PRESCRIPTION TYPE: Normal clopiDOGrel (PLAVIX) 75 mg tablet Take 75 mg by mouth daily. PRESCRIPTION TYPE: Historical Med cyclobenzaprine (FLEXERIL) 10 mg tablet Take 10 mg by mouth three times daily as needed. PRESCRIPTION TYPE: Historical Med docusate (COLACE) 100 mg capsule Take one capsule by mouth twice daily. Qty: 180 capsule, Refills: 3 PRESCRIPTION TYPE: Normal gabapentin (NEURONTIN) 300 mg capsule Take 300 mg by mouth every 8 hours. PRESCRIPTION TYPE: Historical Med insulin aspart U-100 (NOVOLOG FLEXPEN U-100 INSULIN) 100 unit/mL (3 mL) injectio n PEN Use as sliding scale during chemo cycle as needed. PRESCRIPTION TYPE: Historical Med metFORMIN (GLUCOPHAGE) 500 mg tablet Take 500 mg by mouth twice daily with meals . PRESCRIPTION TYPE: Historical Med metoprolol XL (TOPROL XL) 50 mg extended release tablet Take three tablets by mo uth daily. Qty: 90 tablet, Refills: 1 PRESCRIPTION TYPE: Normal Multivitamins with Fluoride (MULTI-VITAMIN PO) Take 1 tablet by mouth daily. PRESCRIPTION TYPE: Historical Med naloxegoL (MOVANTIK) 25 mg tablet Take 25 mg by mouth daily. PRESCRIPTION TYPE: Historical Med nitroglycerin (NITROSTAT) 0.[address] 0.4 mg under tongue every 5 minute s as needed for Chest Pain. Max of 3 tablets, call 911. PRESCRIPTION TYPE: Historical Med ondansetron (ZOFRAN) 4 mg tablet Take one tablet by mouth every 8 hours as neede d for Nausea. Qty: 15 tablet, Refills: 0 PRESCRIPTION TYPE: Normal pantoprazole DR (PROTONIX) 40 mg tablet Take one tablet by mouth daily. Qty: 90 tablet, Refills: 1 PRESCRIPTION TYPE: Normal polyethylene glycol 3350 (MIRALAX) 17 g packet Take one packet by mouth twice da festus. Indications: constipation Qty: 12 each, Refills: 0 PRESCRIPTION TYPE: Normal prednisone (DELTASONE) 50 mg tablet Take 50 mg by mouth daily with breakfast. In dications: 2 a day for 5 day on chemo weeks PRESCRIPTION TYPE: Historical Med sacubitriL-valsartan (ENTRESTO) 24-26 mg tablet Take 1 [...] 1 PRESCRIPTION TYPE: Normal Scheduled appointments: Dec 22, 2019 11:00 AM CDT Return Patient with Enoch Pandey MD [facility] [address] [id number] Pending items needing follow up: Biopsies Signed: Trevor Amin MD 11/15/2019 cc: Primary Care Physician: Bertin Cole Verified Referring physicians: Self, Referral Additional provider(s): T DEPARTMENT SUPERVISOR documented in this encounter Medications at Time of Discharge Start Date End Date Medication Sig Dispensed Refills 05/03/2019 acetaminophen (TYLENOL) Take two 30 tablet 0 325 mg tablet tablets by mouth every 6 hours as needed. Max dose of 4000 mg daily 05/03/2019 allopurinol (ZYLOPRIM) Take one 90 tablet 3 300 mg tablet tablet by mouth daily. Take with food. 11/13/2019 amiodarone (CORDARONE) Take one 30 tablet 1 200 mg tablet tablet daily. 05/26/2019 atorvastatin (LIPITOR) 40 Take one 90 tablet 3 mg tablet tablet by mouth daily. clopiDOGrel (PLAVIX) 75 Take 75 mg by 0 mg tablet mouth daily. cyclobenzaprine Take 10 mg by 0 (FLEXERIL) 10 mg tablet mouth three times daily as needed. 11/13/2019 fentaNYL (DURAGESIC) 75 Apply one 3 patch 0 mcg/hr patch patch to top of skin as directed every 72 hours 11/13/2019 furosemide (LASIX) 20 mg Take one 90 tablet 0 tablet tablet by mouth every morning. gabapentin (NEURONTIN) Take 300 mg 0 300 mg capsule by mouth every 8 hours. 11/13/2019 melatonin 5 mg tab Take one [...] 40 mg tablet tablet by mouth daily. sacubitriL-valsartan Take 1 tablet 0 (ENTRESTO) 24-26 mg by mouth tablet twice daily. 05/03/2019 senna/docusate Take one 60 tablet 0 (SENOKOT-S) 8.6/50 mg tablet by tablet mouth twice daily. 06/11/2019 spironolactone Take one 30 tablet 1 (ALDACTONE) 25 mg tablet tablet by mouth daily. Take with food. 11/25/2019 acyclovir (ZOVIRAX) 400 Take 400 mg 0 mg tablet by mouth twice daily. 11/15/2019 11/28/2019 apixaban (ELIQUIS) 5 mg Take one 60 tablet 0 tablet tablet by mouth twice daily. Start on Saturday11/15/2019 05/03/2019 11/25/2019 docusate (COLACE) 100 mg Take one 180 capsule 3 capsule capsule by mouth twice daily. 11/25/2019 insulin aspart U-100 Use as 0 (NOVOLOG FLEXPEN U-100 sliding scale INSULIN) 100 unit/mL (3 during chemo mL) injection PEN cycle as needed. 11/25/2019 naloxegoL (MOVANTIK) 25 Take 25 mg by 0 mg tablet mouth daily. 05/03/2019 11/25/2019 ondansetron (ZOFRAN) 4 mg Take one 15 tablet 0 tablet tablet by mouth every 8 hours as needed for Nausea. 05/03/2019 11/25/2019 polyethylene glycol 3350 Take one 12 each 0 (MIRALAX) 17 g packet by packetIndications: mouth twice constipation daily. Indications: constipation 11/25/2019 prednisone (DELTASONE) 50 Take 50 mg by 0 mg tabletIndications: 2 a mouth daily day for 5 day on chemo with weeks breakfast. Indications: 2 a day for 5 day on chemo weeks documented as of this encounter Progress Notes * Ra Rufus'Ed, MBBS - 11/13/2019 12:06 PM PAINT DEPARTMENT SUPERVISOR General Progress Note Name: Refugio Lopez Today's Date: 11/13/2019 Admission Date: 11/11/2019 LOS: 2 days Assessment/Plan: Active Problems: Diffuse large B cell lymphoma (HCC) Refugio So is a 59 yr old male w/ PMH of DM Type II, cardiomyopathy, CAD s/p LIDIA x2 05/15/19 and 2014, DVT and possible massive PE 05/14 s/p catheter direc ignacio TPA, chronic hepatitis C s/p curative treatment, HTN, DLBCL w/ bulky spinal cord involvement s/p laminectomy and arthrodesis on 04/26 who is admitted for fur ther workup following re-staging PET with new hypermetabolic lesions. DLBCL withBulkySpinal Involvements/p Laminectomy and Decompression and Art hrodesis -patient of Dr. Vallurapalli - Progressive back pain since September 2018. [...] lymphoma. Pt to go for biopsy today. Plan: > S/p bone biopsy on 11/12/2019. Flowcytometry negative. L4 prelim report negative. T9 biopsy sent for lymphoma staining. Resulyt likely on Saturday. Discharge home today and follow up at outpatient. > Obtain Bone marrow today > PPx: Acyclovir 400mg BID > continue Allopurinol 300mg QDay > Fenatyl Patch 75mcg/hr Q72h > Gabapentin 300mg Q8h > Zofran 4mg PO Q8 prn Paroxsymal Afib - Reported ED visit for A fib in 2014 following NSTEMI and LIDIA. Was reportedly o n anticoagulation until earlier this year -Hospitalization 05/14-05/18 for Afib with RVR among others. Discharged with Meto prolol and diltiazem - Follows with Dr. Ayesha Vega Plan: > Continue SPACE OPERATIONS OFFICER amiodarone 200mg QDay, metoprolol > Hold eliquis - will restart 11/14 CAD s/p LIDIA 05/15/19 Heart Failure with Recovered Ejection Fraction HLD HTN -EF 35% in 2014 per OSH notes -Echo 04/27; EF 55%, mild LV dysfunction, madelaine-apical akinesis suggesting prior anterior FL, mild LA enlargement -LIDIA placed in 2014 -LIDIA placed 05/15/19.Patient had CP and mild elevation in troponin following ca theter directed thrombolysis, but no mention of an EKGor luminal abnormalities on angiogram Plan: Preload: Lasix 40mg PO QDay (HOLDING due to orthostasis) Contractility: Metoprolol XL 150mg QDay Afterload: SPACE OPERATIONS OFFICER Entresto 24/26 QDay (HOLDING), Spironolactone 25mg QDay GDMT: > Resume Entresto at discharge > SPACE OPERATIONS OFFICER Lipitor 40 mg qd > Restart SPACE OPERATIONS OFFICER plavix > lasix 20 mg po daily (notified cardiology office, Dr. Laguna) Hx ofDVT/PE - Hospitalized for syncopal event at [facility] 05/14-05/18. CTA demons trated "extensive bilateral pulmonary emboli." Because patient was hypotensive, he was taken to interventional cardiology who performed catheter directed thromb olysis with TPA -No signs of right heart failure on right heart cath. Discharged on 5 mg Eliquis BID Plan: > Hold Eliquis 5mg BID - restart 11/14 DMTypeII -SPACE OPERATIONS OFFICER metformin 500mg Plan > Resume metformin at discharge > Monitor glucose HCV -S/p treatment in 2015 Sleep > resume SPACE OPERATIONS OFFICER Zolpidem 10mg qHS FEN: No IVF, Lytes PRN, NPO PPx: SPACE OPERATIONS OFFICER Apixaban 5 Dispo home today Code: Full Patient discussed with Dr. Edil Hooper, [facility] Internal Medicine Resident Pager [phone] Subjective No acute events overnight. Patient is doing well with no complaints. Denies bambi rrhea, constipation, nausea, vomiting, abdominal pain, SOB or cough. Medications Scheduled Meds:acyclovir (ZOVIRAX) tablet 400 mg, 400 mg, Oral, BID allopurinoL (ZYLOPRIM) tablet 300 mg, 300 mg, Oral, QDAY amiodarone (CORDARONE) tablet 200 mg, 200 mg, Oral, QDAY [START ON 11/14/2019] apixaban (ELIQUIS) tablet 5 mg, 5 mg, Oral, BID atorvastatin (LIPITOR) tablet 40 mg, 40 mg, Oral, QDAY clopiDOGrel (PLAVIX) tablet 75 mg, 75 mg, Oral, QDAY docusate (COLACE) capsule 100 mg, 100 mg, Oral, BID fentaNYL (DURAGESIC) 75 mcg/hr patch 1 patch, 1 patch, Transdermal, Q72H* And Verification of Patch Placement and Integrity - Fentanyl 75 MCG/HR, , Transderma l, BID gabapentin (NEURONTIN) capsule 300 mg, 300 mg, Oral, Q8H* metoprolol XL (TOPROL XL) tablet 150 mg, 150 mg, Oral, QDAY polyethylene glycol 3350 (MIRALAX) packet 17 g, 17 g, Oral, BID senna/docusate (SENOKOT-S) tablet 1 tablet, 1 tablet, Oral, BID Continuous Infusions: PRN and Respiratory Meds:acetaminophen Q6H PRN, alteplase PRN (Bomb Loader from Rx), flumazeniL PRN, melatonin QHS PRN, naloxone PRN, ondansetron Q8H PRN, oxyCODONE Q3H PRN, sodium chloride 0.9 % TKO infusion PRN, sodium chloride 0.9% irrigation bottle PRN Objective Vital Signs: Last Filed Vital Signs: 24 Devan r Range BP: 113/69 (11/13 855) Temp: 36.9 C (98.5 F) (11/13 855) Pulse: 82 (11/13 855) Respirations: 18 PER MINUTE (11/13 855) SpO2: 95 % (11/13 855) SpO2 Pulse: 74 (11/12 1509) BP: (101-144)/(60-99) Temp: [36.5 C (97.7 F)-37.1 C (98.8 F)] Pulse: [68-82] Respirations: [9 PER MINUTE-30 PER MINUTE] SpO2: [89 %-99 %] Intensity Pain Scale (Self Report): 6 (11/13/19 0941) Vitals: 11/11/19 1400 11/12/19 0437 11/13/19 0505 Weight: 100.6 kg (221 lb 12.5 oz) 99.3 kg (218 lb 14.7 oz) 99.2 kg (218 lb 11.1 oz) Intake/Output Summary: (Last 24 hours) Intake/Output Summary (Last 24 hours) at 11/13/2019 1206 Last data filed at 11/13/2019 1043 Gross per 24 hour Intake 1523 ml Output 1600 ml Net -77 ml Physical Exam General: Well-Developed, NAD, Aox3 HEENT: Normocephalic, atraumatic, PERRL Heart: RRR, no murmurs rubs or gallops Lung: CTABL, normal respiratory effort Abdomen: Soft, nondistended, nontender, normoactive bowel sounds Ext: No SHYAM, cyanosis, clubbing Neuro: Sensation and motor grossly intact. Moving all extremities spontaneously Psyche: Affect normal PICC left arm Lab Review Pertinent labs reviewed Point of Care Testing (Last 24 hours) Glucose: (!) 134 (11/13/19 0500) Radiology and other Diagnostics Review: Pertinent radiology reviewed. XENA Verduzco T DEPARTMENT SUPERVISOR * Faizan Hirsch Marissa - 11/13/2019 8:04 AM PAINT DEPARTMENT SUPERVISOR Shift: Night 11/12-11/13 NEWS Score: 1927-1 (O2sat) 2221-0 0505-0 Pain: 10mg Oxycodone administered X2 w/ adequate relief for back pain, increased this shift from sites Nutrition: Immunosuppressed diet, good appetite. Had a snack before bed. RN enco uraged increased fluid intake GI/: No N/V this shift. Voiding adequate amounts of clear, yellow urine. Pt allison s trouble voiding in the AM, attempted a few times w/o success, but then able to void. Pt states that doesn't normally happen to him. Last BM 11/11- all bowel re gimen medications administered this shift Activity: Up w/ SB assist, pt still occasionally dizzy. Pt also stated he felt m ore "twitchy." Pt visibly jolting and twitching through the shift Family: at the bedside, supportive Last Shower: 11/11 SPACE OPERATIONS OFFICER New Events or Follow-up: Pt feeling "anxious and shakey" this shift. Dr. Sadia herring rdered Atarax X1. Pt stated he felt some relief. T DEPARTMENT SUPERVISOR * Vandana Short RN - 11/12/2019 7:36 PM PAINT DEPARTMENT SUPERVISOR .Shift: Day NEWS Score: 0811 1 1112 0 1543 2 Pain: Chronic back pain and pain at site of biopsy this shift. Oxycodone adminis tered per PRN order. Nutrition: NPO this morning for procedure, Regular diet upon return to unit. Andre r appetite. Eating 100% of dinner. No nausea today. GI/: Adequate UOP per shift. No BM today. Activity: Up with SBA, failed orthos. Hematology aware. Fall bundle in place. U p in room today Family: At bedside throughout shift. Last Shower: Did not shower today d/t procedure; line care completed; will showe r tomorrow. New Events or Follow-up: Had biopsy in IR today. Received magnesium per order this AM. T DEPARTMENT SUPERVISOR * Eugenia Uribe RN - 11/12/2019 3:10 PM PAINT DEPARTMENT SUPERVISOR Patient transported from [facility] back to his room 420 by wheelchair we aring mask with chart on room air. Care turned over to RN, and assisted patie nt to the bathroom. T DEPARTMENT SUPERVISOR * Donovan Butler RN - 11/12/2019 2:19 PM PAINT DEPARTMENT SUPERVISOR Sedation physician present in room. Recent vitals and patient condition reviewe d between sedating physician and nurse. Reassessment completed. Determination made to proceed with planned sedation. T DEPARTMENT SUPERVISOR * Vandana Short RN - 11/12/2019 11:44 AM PAINT DEPARTMENT SUPERVISOR 11/12/19 1112 11/12/19 1113 Vitals BP 131/86 100/75 Mean NBP (Calculated) 101 MM HG [address] Moreland and Rufus Salcido notified of positive orthostatic vitals and intermittent d izziness. Team to make medication adjustments. Fall bundle in place. T DEPARTMENT SUPERVISOR * Oleg Moreland, - 11/12/2019 6:23 AM PAINT DEPARTMENT SUPERVISOR General Progress Note Name: Refugio Lopez Today's Date: 11/12/2019 Admission Date: 11/11/2019 LOS: 1 day Assessment/Plan: Active Problems: Diffuse large B cell lymphoma (HCC) Refugio So is a 59 yr old male w/ PMH of DM Type II, cardiomyopathy, CAD s/p LIDIA x2 05/15/19 and 2014, DVT and possible massive PE 05/14 s/p catheter direc ignacio TPA, chronic hepatitis C s/p curative treatment, HTN, DLBCL w/ bulky spinal cord involvement s/p laminectomy and arthrodesis on 04/26 who is admitted for fur ther workup following re-staging PET with new hypermetabolic lesions. DLBCL withBulkySpinal Involvements/p Laminectomy and Decompression and [...] lymphoma. Pt to go for biopsy today. Plan: > IR Bx today > PPx: Acyclovir 400mg BID > continue Allopurinol 300mg QDay > Fenatyl Patch 25mcg/hr Q72h > Gabapentin 300mg Q8h > Zofran 4mg PO Q8 prn Afibw/ RVR - Reported ED visit for A fib in 2014 following NSTEMI and LIDIA. Was reportedly o n anticoagulation until earlier this year -Hospitalization 05/14-05/18 for Afib with RVR among others. Discharged with Meto prolol and diltiazem - Follows with Dr. Ayesha Vega Plan: > Continue SPACE OPERATIONS OFFICER amiodarone 200mg QDay, metoprolol > Hold eliquis - will restart CAD s/p LIDIA 05/15/19 Heart Failure with Recovered Ejection Fraction HLD HTN -EF 35% in 2014 per OSH notes -Echo 04/27; EF 55%, mild LV dysfunction, madelaine-apical akinesis suggesting prior anterior FL, mild LA enlargement -LIDIA placed in 2014 -LIDIA placed 05/15/19.Patient had CP and mild elevation in troponin following ca theter directed thrombolysis, but no mention of an EKGor luminal abnormalities on angiogram Plan Preload: Lasix 40mg PO QDay (HOLDING due to orthostasis) Contractility: Metoprolol XL 150mg QDay Afterload: SPACE OPERATIONS OFFICER Entresto QDay (HOLDING), Spironolactone 25mg QDay GDMT: > Hold Entresto > SPACE OPERATIONS OFFICER Lipitor 40 mg qd > Hold SPACE OPERATIONS OFFICER plavix - will restart 11/13 AM Hx ofDVT/PE - Hospitalized for syncopal event at [facility] 05/14-05/18. CTA demons trated "extensive bilateral pulmonary emboli." Because patient was hypotensive, he was taken to interventional cardiology who performed catheter directed thromb olysis with TPA -No signs of right heart failure on right heart cath. Discharged on 5 mg Eliquis BID Plan: > Hold Eliquis 5mg BID - restart DMTypeII -SPACE OPERATIONS OFFICER metformin 500mg Plan > Hold metformin > Monitor glucose HCV -S/p treatment in 2016 Sleep >Hold SPACE OPERATIONS OFFICER Zolpidem 10mg qHS FEN: No IVF, Lytes PRN, NPO PPx: SPACE OPERATIONS OFFICER Apixaban 5 Dispo Hematology Code: Full Patient discussed with Dr. Edil Amin MD Internal Medicine, PGY1 Pager: [phone] ATTESTATION I have personally performed a history and physical exam on the patient. I have d iscussed the case with the resident and concur with the resident documentation o f history, physical exam, assessment, and treatment plan unless otherwise noted. For complete daily documentation, see H&P. Staff name: Oleg Moreland, Date:11/12/2019 Subjective No acute events overnight. Patient is doing well this morning. Ready for biops y. Baseline back pain. No other complaints or concerns. Medications Scheduled Meds:acyclovir (ZOVIRAX) tablet 400 mg, 400 mg, Oral, BID allopurinoL (ZYLOPRIM) tablet 300 mg, 300 mg, Oral, QDAY amiodarone (CORDARONE) tablet 200 mg, 200 mg, Oral, QDAY atorvastatin (LIPITOR) tablet 40 mg, 40 mg, Oral, QDAY docusate (COLACE) capsule 100 mg, 100 mg, Oral, BID fentaNYL (DURAGESIC) 75 mcg/hr patch 1 patch, 1 patch, Transdermal, Q72H* And Verification of Patch Placement and Integrity - Fentanyl 75 MCG/HR, , Transderma l, BID furosemide (LASIX) tablet 40 mg, 40 mg, Oral, QDAY gabapentin (NEURONTIN) capsule 300 mg, 300 mg, Oral, Q8H* metoprolol XL (TOPROL XL) tablet 150 mg, 150 mg, Oral, QDAY polyethylene glycol 3350 (MIRALAX) packet 17 g, 17 g, Oral, BID senna/docusate (SENOKOT-S) tablet 1 tablet, 1 tablet, Oral, BID Continuous Infusions: PRN and Respiratory Meds:acetaminophen Q6H PRN, alteplase PRN (Bomb Loader from Rx), melatonin QHS PRN, ondansetron Q8H PRN, oxyCODONE Q3H PRN, sodium chloride 0.9 % TKO infusion PRN, sodium chloride 0.9% irrigation bottle PRN Objective Vital Signs: Last Filed Vital Signs: 24 Devan r Range BP: 110/71 (11/12 436) Temp: 36.4 C (97.6 F) (11/12 436) Pulse: 69 (11/12 436) Respirations: 14 PER MINUTE (11/12 436) SpO2: 93 % (11/12 436) Height: 185.4 cm (72.99") (11/11 1400) BP: (102-135)/(60-77) Temp: [36.3 C (97.4 F)-36.7 C (98 F)] Pulse: [64-82] Respirations: [14 PER MINUTE-18 PER MINUTE] SpO2: [93 %-100 %] Intensity Pain Scale (Self Report): Asleep (11/11/19 2330) Vitals: 11/11/19 1322 11/11/19 1400 11/12/19 0437 Weight: 101.2 kg (223 lb) 100.6 kg (221 lb 12.5 oz) 99.3 kg (218 lb 14.7 oz) Intake/Output Summary: (Last 24 hours) Intake/Output Summary (Last 24 hours) at 11/12/2019 0623 Last data filed at 11/12/2019 0437 Gross per 24 hour Intake 1084 ml Output 2570 ml Net -1486 ml Physical Exam General: Well-Developed, NAD, Aox3 HEENT: Normocephalic, atraumatic, PERRL Heart: RRR, no murmurs rubs or gallops Lung: CTABL, normal respiratory effort Abdomen: Soft, nondistended, nontender, normoactive bowel sounds Ext: No SHYAM, cyanosis, clubbing Neuro: Sensation and motor grossly intact. Moving all extremities spontaneously Psyche: Affect normal Review of Systems General: No fever, chills HEENT: No headache, dizziness, change in vision Cardiovascular: No chest pain Respiratory: No shortness of breath, cough Abdomen: No nausea, vomiting, diarrhea, constipation, abdominal pain Extremities: No LE Swelling. + lower back pain Lab Review Pertinent labs reviewed Point of Care Testing (Last 24 hours) Glucose: (!) 111 (11/12/19 0430) Radiology and other Diagnostics Review: Pertinent radiology reviewed. Trevor Amin MD Internal Medicine PGY1 Pager #[phone] / Available on Volte T DEPARTMENT SUPERVISOR * Vandana Short RN - 11/11/2019 7:34 PM PAINT DEPARTMENT SUPERVISOR .Shift: Day, patient arrived to unit ~1240 NEWS Score: 1309 0 1508 0 Pain: Chronic low back pain. Oxycodone administered PRN with relief Nutrition: Regular diet. Good appetite. Eating 100% of meals this shift. No naus ea/vomiting. NPO at midnight for possible procedure tonight. GI/: Adequate UOP per shift. BM prior to admission today. Activity: Up with SBA due to ortho +; steady on feet Family: at bedside throughout shift. Last Shower: Prior to admission, line care today New Events or Follow-up: MRI to be done tonight, fentanyl patch to be removed prior to MRI. No acute events today. T DEPARTMENT SUPERVISOR * Vandana Short RN - 11/11/2019 2:17 PM PAINT DEPARTMENT SUPERVISOR .Patient arrived to room # (9344) via ambulation accompanied by family. Patient transferred to the bed without assistance. Bedside safety checks completed. Init ial patient assessment completed. Refer to flowsheet for details. Admission skin assessment completed with: Vandana Short RN/Ketty Sinclair RN Pressure injury present on arrival?: No 1. Head/Face/Neck: No 2. Trunk/Back: No 3. Upper Extremities: No 4. Lower Extremities: No 5. Pelvic/Coccyx: No 6. Assessed for device associated injury? Yes 7. Malnutrition Screening Tool (Nursing Nutrition Assessment) Completed? Yes See Doc Flowsheet for additional wound details. INTERVENTIONS: Moisture management; frequent repositioning advised T DEPARTMENT SUPERVISOR * Vandana Short RN - 11/11/2019 1:40 PM PAINT DEPARTMENT SUPERVISOR 11/11/19 1309 11/11/19 1310 Vitals BP 112/73 114/61 Mean NBP (Calculated) 86 MM HG 79 MM HG BP Source Arm, Right Upper Arm, Right Upper BP Patient Position Supine Standing Ra'ed Jabr, hematology, notified of positive orthostatic vitals with DBP droppin g by 12. Team making medication changes, will CTM. Patient placed on fall precau tions. T DEPARTMENT SUPERVISOR documented in this encounter H&P Notes * Oleg Moreland, - 11/11/2019 1:15 PM PAINT DEPARTMENT SUPERVISOR ADMISSION HISTORY AND PHYSICAL Name: Refugio Lopez 6 Admission Date: 11/11/2019 ASSESSMENT & PLAN Refugio So is a 59 yr old male w/ PMH of DM Type II, cardiomyopathy, CAD s/p LIDIA x2 05/15/19 and 2014, DVT and possible massive PE 05/14 s/p catheter direc ignacio TPA, chronic hepatitis C s/p curative treatment, HTN, DLBCL w/ bulky spinal cord involvement s/p laminectomy and arthrodesis on 04/26 who is admitted for fur ther workup following re-staging PET with new hypermetabolic lesions. DLBCL withBulkySpinal Cord Involvements/p Laminectomy and Decompression an d Arthrodesis -patient of Dr. Cueva - Progressive back pain since September 2018. Found to have partial compression fr actures and multiple vertebral bones and was put on dexamethasone for pain contr ol. - Twobone marrow biopsies andPET scan done while on steroids were unrevealin g - BMBx 04/14 demonstrated Diffuse Large B [...] , germinal center type, with necrosis - April 2019 Dex 40mg IV 4 days, Rituximab 04/25/19 -PET 11/11/2019 concerning for hypermetabolic lesions on left illiac bone, new pa raspinal lesions around L5. CT did not have correlation. -Admission to [facility] 11/11/2019 for MRI characterization of lesions and possible biop sy. Hold on planned high dose systemic methotrexate -If there are lesions amenable to biopsy we will plan for this 11/12 Plan: > MRI Pelvis, Lumbar Spine WO/W > IR consult for probable Bx tomorrow based on MRI results > PPx: Acyclovir 400mg BID > continue Allopurinol 300mg QDay > Fenatyl Patch 25mcg/hr Q72h > Gabapentin 300mg Q8h > Zofran 4mg PO Q8 prn Afibw/ RVR - Reported ED visit for A fib in 2014 following NSTEMI and LIDIA. Was reportedly o n anticoagulation until earlier this year - Hospitalization 05/14-05/18 for Afib with RVR among others. Discharged with Metop rolol and diltiazem - Follows with Dr. Ayesha Vega Plan: > Continue SPACE OPERATIONS OFFICER amiodarone 200mg QDay, metoprolol > Hold eliquis, plavix CAD s/p LIDIA 05/15/19 Heart Failure with Recovered Ejection Fraction HLD HTN -EF 35% in 2014 per OSH notes -Echo 04/27; EF 55%, mild LV dysfunction, madelaine-apical akinesis suggesting prior anterior FL, mild LA enlargement -LIDIA placed in 2014 -LIDIA placed 05/15/19.Patient had CP and mild elevation in troponin following ca theter directed thrombolysis, but no mention of an EKGor luminal abnormalities on angiogram Plan Preload: Lasix 40mg PO QDay Contractility: Metoprolol XL 125mg QDay Afterload: Losartan 25mg QDay (HOLDING), Spironolactone 25mg QDay GDMT: > Hold Losartan 25mg QDay > SPACE OPERATIONS OFFICER Lipitor 40 mg qd > Hold SPACE OPERATIONS OFFICER plavix for possible bx tomorrow Hx of DVT/PE - Hospitalized for syncopal event at [facility] 05/14-05/18. CTA demons trated "extensive bilateral pulmonary emboli." Because patient was hypotensive, he was taken to interventional cardiology who performed catheter directed thromb olysis with TPA - No signs of right heart failure on right heart cath. Discharged on 5 mg Lyndsay balbir BID Plan: > Hold Eliquis 5mg BID for probable bx tomorrow DM Type II -SPACE OPERATIONS OFFICER metformin 500mg Plan > Hold metformin > Monitor glucose HCV - S/p treatment in 2015 FEN: No IVF, Lytes PRN, NPO PPx: SPACE OPERATIONS OFFICER Apixaban 5 Dispo Hematology Code: Full Patient discussed with Dr. Edil Amin MD 11/11/2019 Internal Medicine, PGY1 Pager: [phone] ATTESTATION I have personally performed a history and physical exam on the patient on 0. I have discussed the case with the resident and concur with the resident docu mentation of history, physical exam, assessment, and treatment plan unless other patel noted. Staff name: Oleg Moreland, DO Date:11/12/2019 Chief Complaint: Abnormal PET scan History of Present Illness Refugio Lopez is a 59 y.o. male w/ PMH DM, cad s/p lidia, hep c s/p tx, htn, DL BCL who was admitted from clinic following restaging PET, and associated night s weats, progressive lower back pain, and generalized weakness. We will undergo M RI for further characterization. Today Mr Carmencita is feeling okay. He says his chronic back pain is doing well tod ay. No focal complaints/pain Review of Systems A comprehensive 14-point ROS was negative except for: Lower back pain Past medical history has a past medical history of Back pain, CAD (coronary artery disease), Cardiom yopathy (HCC), Chronic hepatitis C (HCC), DM (diabetes mellitus) (HCC), [facility] hypertension, GERD (gastroesophageal reflux disease), and Multiple myeloma and immunoproliferative neoplasms (HCC). Past surgical history has a past surgical history that includes heart catheterization; kyphoplasty; a nd lumbar laminectomy (N/A, 04/26/2019). Family history Family History Problem Relation Age of Onset Cancer-Lung Mother Cancer-Pancreas Father Social history Social History Socioeconomic History Marital status: Spouse name: Not on file Number of children: Not on file Years of education: Not on file Highest education level: Not on file Occupational History Not on file Tobacco Use Smoking status: Former Smoker Last attempt to quit: 07/26/2015 Years since quittin.2 Smokeless tobacco: Never Used Substance and Sexual Activity Alcohol use: Yes Alcohol/week: 2.0 standard drinks Types: 2 Cans of beer per week Drug use: Never Sexual activity: Not on file Other Topics Concern Not on file Social History Narrative Not on file Allergies Patient has no known allergies. Medications Current Facility-Administered Medications Medication acetaminophen (TYLENOL) tablet 650 mg acyclovir (ZOVIRAX) tablet 400 mg allopurinoL (ZYLOPRIM) tablet 300 mg alteplase (CATHFLO ACTIVASE) injection 2 mg amiodarone (CORDARONE) tablet 200 mg apixaban (ELIQUIS) tablet 5 mg atorvastatin (LIPITOR) tablet 40 mg clopiDOGrel (PLAVIX) tablet 75 mg docusate (COLACE) capsule 100 mg fentaNYL (DURAGESIC) 25 mcg/hr patch 1 patch furosemide (LASIX) tablet 40 mg gabapentin (NEURONTIN) capsule 300 mg losartan (COZAAR) tablet 25 mg melatonin tablet 5 mg metoprolol XL (TOPROL XL) tablet 150 mg ondansetron (ZOFRAN) tablet 4 mg oxyCODONE (ROXICODONE) tablet 5-[address] (PROTONIX) tablet 40 mg polyethylene glycol 3350 (MIRALAX) packet 17 g senna/docusate (SENOKOT-S) tablet 1 tablet sodium chloride 0.9 % TKO infusion sodium chloride 0.9% irrigation bottle spironolactone (ALDACTONE) tablet 25 mg Physical exam BP: 114/63 (11/11 1057) Temp: 36.3 C (97.4 F) (11/11 1057) Pulse: 80 (11/11 1057) SpO2: 99 % (11/11 105) Height: 185.4 cm (72.99") (11/11 1322) BP: (114)/(63) Temp: [36.3 C (97.4 F)] Pulse: [80] SpO2: [99 %] Vitals: 11/11/19 1322 Weight: 101.2 kg (223 lb) General: Alert and response to question appropriately. VS as above. No acute d istress . Eyes: No conjunctival injection. EOMI. No scleral icterus. Ears, nose, mouth, and throat : No erythema. MMM. Neck: Symmetric appearance without crepitus, no obvious mass or noticeable swel ling, Lungs: No use of accessory muscles. Clear to auscultation bilaterally without wheezes, rales, or rhonchi. Cardiovascular: Regular rate, S1, S2 normal, no murmurs, clicks, rubs, or gallop s appreciated . 2+ and symmetric, all extremities. No edema in BLE. Abdomen: BS+, soft, no guarding or rigidity. Nontender to palpation without pa lpable masses. No rebound tenderness. Skin: Skin color normal, no obvious evidence of rashes. Neurologic: Alerted and oriented . Sensation grossly intact. No focal weaknes s. Psych: Alerted and oriented, calm, normal affect Labs Recent Labs 11/11/19 0712 NA 137 K 4.0 CL 102 CO2 29 BUN 13 CR 0.70 GAP 6 GFR >60 ALBUMIN 4.1 TOTBILI 0.4 AST 16 ALT 13 Recent Labs 11/11/19 0712 WBC 3.1* HGB 11.3* HCT 33.0* PLTCT 180 MCV 95.0 Radiology and Other Diagnostic Procedures Review Nm Pet Scan Torso (skull-thighs) Result Date: 11/11/2019 1. Decreased heterogeneous marrow hypermetabolism. Small mildly hypermetabolic f ocus within the right posterior T9 vertebral body not exceeding background hepat ic activity. Interval visualization of more focally intense FDG avidity along th e left posterior iliac crest, likely corresponding to bone marrow biopsy site. 2 . Development of two adjacent small hypermetabolic nodular left paravertebral fo ci within the lumbosacral fossa at the level of the L5 vertebral body. Findings are indeterminate and may reflect minimal residual and/or new sites of disease v ersus inflammatory uptake. Follow-up PET/CT recommended in 3 months (or accordin g to clinical protocol) for reassessment. 5PS = X or 5. By my electronic signatu re, I attest that I have personally reviewed the images for this examination and formulated the interpretations and opinions expressed in this report Finalized by Trevor Fernández M.D. on 11/11/2019 10:34 AM. Dictated by Radha Haley MD on 11/11/2019 8:24 AM. Trevor Amin MD 11/11/2019 Internal Medicine, PGY1 Pager: #[phone]/Available on Volte T DEPARTMENT SUPERVISOR documented in this encounter Procedure Notes * Radha Malone, MEDICAL OFFICE SUPERVISOR-CLAY PIGEON SETTER - 11/13/2019 3:43 PM PAINT DEPARTMENT SUPERVISOR Procedure(s): BONE MARROW ASP; BONE MARROW Pre-Procedure Diagnose(s): Diffuse large B-cell lymphoma, unspecified body regio n (HCC) Bone Marrow Procedure Note Procedure Details: Consent was obtained from patient, signed copy placed in chart. Risks of the pro cedure were explained including infection, pain, nerve damage and bleeding. Pt w as then pre-medicated with 50mcg IV fentanyl and 0.5mg oral Ativan. Time out was done prior to the procedure. The patient was positioned in the prone position. The left iliac crest was prep ped and draped in sterile fashion with betadine and sterile drapes. 20 ml of 1% Lidocaine was used to anesthetize the skin and bone cortex. An aspirate needle was then inserted into the marrow and fluid obtained. The needle was removed an d pressure applied. Next the bone marrow biopsy needle was inserted, a core bio psy was obtained and the needle removed. Pressure was held until hemostasis. Be tadine cleaned from skin and bandaide applied. Pt. Placed supine for 15 minutue s and bed lowered to lowest setting. Samples were sent for bone marrow biopsy and aspirate, flow cytometry, and cytog enetics. Complications: None. Patient tolerated procedure well. Kathryn Malone APRN Hematology/Oncology T documented in this encounter Consult Notes * Ramiro Tavera APRN-NP - 11/12/2019 12:44 PM PAINT DEPARTMENT SUPERVISOR Associated Order(s): CONSULT INTERVENTIONAL RADIOLOGY PHYSICIAN Interventional Radiology Consult Note with Pre-procedural History and Physical Admission Date: 11/11/2019 LOS: 1 day Active Problems: Diffuse large B cell lymphoma (HCC) Reason for consult: Evaluate for biopsy of hypermetabolic lesions in setting of lymphoma Assessment: - Admitted with new lesions found on restaging PET scan; hx DLBCL - Review of imaging significant for lesions at T9 and L4 that are amenable to bi opsy per Dr. Osei. - Labs, medications, and allergies meet procedural protocol. - Pt is not on a therapeutic blood thinner, Eliquis/Plavix held per protocol - Platelet Count Date Value Ref Range Status 11/12/2019 154 150 - 400 K/UL Final ; No results found for: INR Plan: - This case has been reviewed and added onto the [facility] IR schedule for today . - For sedation purposes, please keep NPO prior to procedure. May take PO medicat ions with sips of water. We appreciate being able to participate in this patient's care. Please page with any questions or concerns. RANDY Coronel Pgr [phone] IR Team Pager [phone] (After-hours and Weekends) Procedure: T9 and L4 lesion biopsies IR Pre Procedure Notes: Flouro prone per AR Chief Complaint: New hypermetabolic lesions on restaging PET CT Previous Anesthetic/Sedation History: Reviewed. History of present illness: Refugio Lopez is a 59 y.o. male patient with w/ PMH of DM Type II, cardiomyop athy, CAD s/p LIDIA x2 05/15/19 and 2014, DVT and possible massive PE 05/14 s/p cath eter directed TPA, chronic hepatitis C s/p curative treatment, HTN, DLBCL w/ bul ky spinal cord involvement s/p laminectomy and arthrodesis on 04/26 who is admitt ed for further workup following re-staging PET with new hypermetabolic lesions. IR consulted for biopsy evaluation. See ROS below for current symptoms Review of Systems Constitutional: negative Respiratory: negative Gastrointestinal: negative Medications Scheduled Meds:acyclovir (ZOVIRAX) tablet 400 mg, 400 mg, Oral, BID [MAR Hold] allopurinoL (ZYLOPRIM) tablet 300 mg, 300 mg, Oral, QDAY [MAR Hold] amiodarone (CORDARONE) tablet 200 mg, 200 mg, Oral, QDAY [MAR Hold] atorvastatin (LIPITOR) tablet 40 mg, 40 mg, Oral, QDAY [MAR Hold] clopiDOGrel (PLAVIX) tablet 75 mg, 75 mg, Oral, QDAY [MAR Hold] docusate (COLACE) capsule 100 mg, 100 mg, Oral, BID [MAR Hold] fentaNYL (DURAGESIC) 75 mcg/hr patch 1 patch, 1 patch, Transdermal, Q 72H* And [MAR Hold] Verification of Patch Placement and Integrity - Fentanyl 75 MCG/HR, , Transdermal, BID [MAR Hold] furosemide (LASIX) tablet 40 mg, 40 mg, Oral, QDAY gabapentin (NEURONTIN) capsule 300 mg, 300 mg, Oral, Q8H* [MAR Hold] metoprolol XL (TOPROL XL) tablet 150 mg, 150 mg, Oral, QDAY [MAR Hold] polyethylene glycol 3350 (MIRALAX) packet 17 g, 17 g, Oral, BID [MAR Hold] senna/docusate (SENOKOT-S) tablet 1 tablet, 1 tablet, Oral, BID Continuous Infusions: PRN and Respiratory Meds:[NOV Hold] acetaminophen Q6H PRN, [NOV Hold] alteplase PRN (Bomb Loader from Rx), [NOV Hold] melatonin QHS PRN, [NOV Hold] ondansetron Q8H PRN, [NOV Hold] oxyCODONE Q3H PRN, [NOV Hold] sodium chloride 0.9 % TKO infusion PRN, [NOV Hold] sodium chloride 0.9% irrigation bottle PRN Objective Vital Signs: Last Filed Vital Signs: 24 Devan r Range BP: 100/75 (11/12 1113) Temp: 36.7 C (98.1 F) (11/12 111) Pulse: 94 (11/12 1113) Respirations: 16 PER MINUTE (11/12 111) SpO2: 98 % (11/12 111) Height: 185.4 cm (72.99") (11/11 1400) BP: (100-135)/(60-96) Temp: [36.4 C (97.5 F)-36.7 C (98.1 F)] Pulse: [64-94] Respirations: [14 PER MINUTE-18 PER MINUTE] SpO2: [93 %-100 %] Intensity Pain Scale (Self Report): 6 (11/12/19 1156) Vitals: 11/11/19 1322 11/11/19 1400 11/12/19 0437 Weight: 101.2 kg (223 lb) 100.6 kg (221 lb 12.5 oz) 99.3 kg (218 lb 14.7 oz) Intake/Output Summary: (Last 24 hours) Intake/Output Summary (Last 24 hours) at 11/12/2019 1244 Last data filed at 11/12/2019 1009 Gross per 24 hour Intake 1284 ml Output 4045 ml Net -2761 ml Physical Exam General appearance: alert and no distress Neurologic: Grossly normal, at baseline Lungs: Nonlabored with normal effort Abdomen: soft, non-tender. Extremities: extremities normal, atraumatic, no cyanosis or edema Airway: airway assessment performed Mallampati II (soft palate, uvula, fauces visible) Anesthesia Classification: ASA III (A patient with a severe systemic disease th at limits activity, but is not incapacitating) Pre procedure anxiolysis plan: NA Intra-procedural Sedation/Medication Plan: Fentanyl, Lidocaine and Midazolam Personal history of sedation complications: Denies adverse event. Family history of sedation complications: Denies adverse event. Medications for Reversal: Naloxone and Flumazenil Discussion/Reviews: Physician has discussed risks and alternatives of this type of sedation and above planned procedures with patient NPO Status: Acceptable Status: N/A Lab/Radiology/Other Diagnostic Tests: Labs: 24-hour labs: Results for orders placed or performed during the hospital encounter of 11/11/19 (from the past 24 hour(s)) CBC AND DIFF CELLULAR THERAPEUTICS Collection Time: 11/12/19 4:30 AM Result Value Ref Range White Blood Cells 2.6 (L) 4.5 - 11.0 K/UL RBC 3.29 (L) 4.4 - 5.5 M/UL Hemoglobin 10.8 (L) 13.5 - 16.5 GM/DL Hematocrit 31.5 (L) 40 - 50 % MCV 95.8 80 - 100 FL MCH 32.7 26 - 34 PG MCHC 34.2 32.0 - 36.0 G/DL RDW 15.5 (H) 11 - 15 % Platelet Count 154 150 - 400 K/UL MPV 7.1 7 - 11 FL Neutrophils 41 41 - 77 % Lymphocytes 26 24 - 44 % Monocytes 23 (H) 4 - 12 % Eosinophils 8 (H) 0 - 5 % Basophils 2 0 - 2 % Absolute Neutrophil Count 1.10 (L) 1.8 - 7.0 K/UL Absolute Lymph Count 0.70 (L) 1.0 - 4.8 K/UL Absolute Monocyte Count 0.60 0 - 0.80 K/UL Absolute Eosinophil Count 0.20 0 - 0.45 K/UL Absolute Basophil Count 0.00 0 - 0.20 K/UL COMPREHENSIVE METABOLIC PANEL CELLULAR THERAPEUTICS Collection Time: 11/12/19 4:30 AM Result Value Ref Range Sodium 140 137 - 147 MMOL/L Potassium 4.2 3.5 - 5.1 MMOL/L Chloride 105 98 - 110 MMOL/L Glucose 111 (H) 70 - 100 MG/DL Blood Urea Nitrogen 11 7 - 25 MG/DL Creatinine 0.67 0.4 - 1.24 MG/DL Calcium 8.7 8.5 - 10.6 MG/DL Total Protein 5.4 (L) 6.0 - 8.0 G/DL Total Bilirubin 0.4 0.3 - 1.2 MG/DL Albumin 3.7 3.5 - 5.0 G/DL Alk Phosphatase 81 25 - 110 U/L AST (SGOT) 15 7 - 40 U/L CO2 27 21 - 30 MMOL/L ALT (SGPT) 10 7 - 56 U/L Anion Gap 8 3 - 12 eGFR Non >60 >60 mL/min eGFR >60 >60 mL/min MAGNESIUM CELLULAR THERAPEUTICS Collection Time: 11/12/19 4:30 AM Result Value Ref Range Magnesium 1.9 1.6 - 2.6 mg/dL PHOSPHORUS CELLULAR THERAPEUTICS Collection Time: 11/12/19 4:30 AM Result Value Ref Range Phosphorus 5.3 (H) 2.0 - 4.5 MG/DL LDH-LACTATE DEHYDROGENASE Collection Time: 11/12/19 4:30 AM Result Value Ref Range Lactate Dehydrogenase 170 100 - 210 U/L URIC ACID Collection Time: 11/12/19 4:30 AM Result Value Ref Range Uric Acid 4.0 4.0 - 8.0 MG/DL Radiology: Reviewed. T DEPARTMENT SUPERVISOR documented in this encounter Miscellaneous Notes * Procedures (Immed Post or Bedside) - Dorian Osei MD - 11/12/2019 2:41 PM PAINT DEPARTMENT SUPERVISOR Immediate Post Procedure Note Date: 11/12/2019 Attending Physician: Madonna Osei Teacher Of The Hearing Impaired(s): Franco Procedure(s): T9, L4 vertebral body bx's Indications: lesions Findings: 2 core bx's obtained at each level Anesthesia: Local 10 mL 1% lidocaine without epinephrine with IV sedation . Sedation/Medication Plan: Fentanyl and Midazolam Time out performed: Consent obtained, correct patient verified, correct procedur e verified, correct site verified, patient marked as necessary. Estimated Blood Loss: None/Negligible Specimen(s) Removed/Disposition: Yes, sent to pathology Complications: None Comments: Dorian Osei MD T DEPARTMENT SUPERVISOR * Case Mgmt DC Plan - Miriam Tolliver RN - 11/12/2019 2:24 PM PAINT DEPARTMENT SUPERVISOR Case Management Admission Assessment NAME:Refugio Lopez :1959 AGE: 59 y.o. ADMISSION DATE: 11/11/2019 DAYS ADMITTED: LOS: 1 day Todays Date: 11/12/2019 Source of Information: Patient Plan Plan: Case Management Assessment, Assist PRN with SW/NCM Services, Discharge Bipin nning for Home Anticipated Per H&P, "59 yr old male w/ PMH of DM Type II, cardiomyopathy, CAD s/p LIDIA x2 05/15/19 and 2014, DVT and possible massive PE 05/14 s/p catheter directed TPA, chronic hepatitis C s/p curative treatment, HTN, DLBCL w/ bulky spinal cord involvement s/p laminectomy and arthrodesis on 04/26 who is admitted for further workup following re-staging PET with new hypermetabolic lesions." This CM met with pt for assessment [...] physician. *NCM visited with patient at bedside. Pt familiar to this NCM and this service f rom last May. *Pt states he continues to be independent with self-care & ADL's SPACE OPERATIONS OFFICER & has no concerns for discharge at this time. *DC Transport: Pts spouse, Cristal P: *DME: RW, SPC *HH / HI: [facility] O: / F: (pt not cur rent) *SNF / IPR / LTACH: [facility] IPR *Primary Insurance: [facility] *Secondary Insurance: N/A *Rx coverage: [facility] / [employer] *No NCM needs identified at this time. NCM encouraged pt to reach out if any nee ds should change. Pt verbalized understanding. *NCM will continue to follow and assess for additional needs through discharge. Patient Address/Phone [address] [facility], [place] [address] (home) Emergency Contact Extended Emergency Contact Information Primary Emergency Contact: cristal lopez Relation: Spouse Healthcare Directive Healthcare Directive: No, patient does not have a healthcare directive Would patient like to fill out a (a new) Healthcare Directive?: No, patient decl ined Transportation Does the patient need discharge transport arranged?: No Transportation Name, Phone and Availability #1: Cristal P: Transportation Name, Phone and Availability #2: [email or web address] P: Does the patient use Medicaid Transportation?: No Expected Discharge Date Expected Discharge Date: 11/16/19 Living Situation Prior to Admission ? Living Arrangements Type of Residence: Home, independent Living Arrangements: Spouse/significant other(with Cristal) Bathroom Shower / Tub: Tub/Shower Unit, Walk-in Shower(with standard toilet) How many levels in the residence?: 1 Can patient live on one level if needed?: Yes Does residence have entry and/or side stairs?: Yes(2-3 FISH. Pt able to manage st eps independently SPACE OPERATIONS OFFICER and stated he's doing much better since the last time he w as inpatient) Assistance needed prior to admit or anticipated on discharge: No Who provides assistance or could if needed?: Cristal Are they in good health?: Unknown Can support system provide 24/7 care if needed?: Yes ? Level of Function Prior level of function: Independent ? Cognitive Abilities Cognitive Abilities: Alert and Oriented, Engages in problem solving and planning , Participates in decision making, Recognizes impact of health condition on life style, Understands nature of health condition Financial Resources ? Coverage Primary Insurance: Commercial insurance([facility] R) Secondary Insurance: No insurance Additional Coverage: RX(through primary insurance. Pt continues to use [facility] in [place] and states copays are still well covered) ? Source of Income Source Of Income: SSI ? Financial Assistance Needed? None Psychosocial Needs ? Mental Health Mental Health History: No ? Substance Use History Substance Use History Screen: No ? Other None Current/Previous Services ? PCP Bertin Cole, , ? Pharmacy [facility][id number] [place], [place] - [address] [facility] [address] [facility] [address] [id number] [facility] [id number] ? Durable Medical Equipment Durable Medical Equipment at home: Roller Walker, Single Point Cane ? Home Health Receiving home health: In the past Agency name: [facility] (pt not current) Would patient use this agency again?: Yes ? Hemodialysis or Peritoneal Dialysis Undergoing hemodialysis or peritoneal dialysis: No ? Tube/Enteral Feeds Receive tube/enteral feeds: No ? Infusion Receive infusions: No ? Private Duty Private duty help used: No ? Home and Community Based Services Home and community based services: No ? Danny White Danny White: N/A ? Hospice Hospice: No ? Outpatient Therapy PT: No OT: No TALKBACK HOST: No ? Prison Facility/Snf SNF: No NH: No ? Inpatient Rehab IPR: In the past When did patient receive care?: February 2019 for ~1 week Name of Facility: [facility] IPR Would patient return for future services?: Yes ? [facility] Hospital LTACH: No ? Acute Hospital Stay Acute Hospital Stay: In the past Miriam Tolliver RN, BSN Nurse Parts PullerRosin Barrel Filler / Surgical Non-Transplant Pager: T DEPARTMENT SUPERVISOR * Advanced Care Planning/Resuscitation Status - Trevor Amin MD - 11/11/2019 4:41 PM PAINT DEPARTMENT SUPERVISOR Advance Care Planning/Resuscitation Status Conversation Individuals present for advance care planning conversation: patient, resident/[facility] physician and other: family member Pertinent details of conversation (including direct quotes from patient or surro gate): Mr Lopez said that he thinks he would want everything done if he passed, however he wouldn't want to live on a machine if it was futile. Outcome of conversation: Full Code Documents completed as a result of this conversation: None Other documents present, which outline patient/surrogate wishes: None Attestation? N/A T DEPARTMENT SUPERVISOR documented in this encounter Plan of Treatment [...] Name Priority Date/Time Associated Diag nosis HC LVL IV SRG PTH, GROSS 11/13/2019 & MICRO 4:09 PM PAINT DEPARTMENT SUPERVISOR [place] FLOW CYTOMETRY 11/13/2019 INTERPRETATION 16/> 3:34 PM PAINT DEPARTMENT SUPERVISOR MARKERS LEUKEMIA/LYMPHOMA PNL, Routine 11/13/2019 BONE MARROW 3:34 PM PAINT DEPARTMENT SUPERVISOR CHROMOSOMES BONE MARROW Routine 11/13/2019 3:34 PM PAINT DEPARTMENT SUPERVISOR HC FE STAIN, BM ASP Routine 11/13/2019 3:34 PM PAINT DEPARTMENT SUPERVISOR BONE MARROW ASP Routine 11/13/2019 3:34 PM PAINT DEPARTMENT SUPERVISOR BONE MARROW BIOPSY Routine 11/13/2019 3:34 PM PAINT DEPARTMENT SUPERVISOR HC PHOSPHOROUS, SERUM Routine 11/13/2019 (PO4CT) 5:00 AM PAINT DEPARTMENT SUPERVISOR HC MAGNESIUM (MGCT) Routine 11/13/2019 5:00 AM PAINT DEPARTMENT SUPERVISOR HC COMPREHENSIVE Routine 11/13/2019 METABOLIC PANEL (CH12CT) 5:00 AM PAINT DEPARTMENT SUPERVISOR HC CBC W AUTOMATED DIFF Routine 11/13/2019 (HPDCT) 5:00 AM PAINT DEPARTMENT SUPERVISOR MANUAL DIFF Routine 11/13/2019 5:00 AM PAINT DEPARTMENT SUPERVISOR FLOW CYTOMETRY 11/12/2019 2:30 PM PAINT DEPARTMENT SUPERVISOR [place] FLOW CYTOMETRY 11/12/2019 INTERPRETATION 16/> 2:30 PM PAINT DEPARTMENT SUPERVISOR MARKERS LEUKEMIA/LYMPHOMA PANEL 11/12/2019 FLUID/TISSUE 2:30 PM PAINT DEPARTMENT SUPERVISOR LEUKEMIA/LYMPHOMA PANEL Routine 11/12/2019 FLUID/TISSUE 2:30 PM PAINT DEPARTMENT SUPERVISOR HC MOD SEDATION, INIT 15 Routine 11/12/2019 MIN, =>5 YEARS 1:57 PM PAINT DEPARTMENT SUPERVISOR HC LVL IV SRG PTH, GROSS Routine 11/12/2019 & MICRO 12:30 PM PAINT DEPARTMENT SUPERVISOR HC PHOSPHOROUS, SERUM Routine 11/12/2019 (PO4CT) 4:30 AM PAINT DEPARTMENT SUPERVISOR HC MAGNESIUM (MGCT) Routine 11/12/2019 4:30 AM PAINT DEPARTMENT SUPERVISOR HC COMPREHENSIVE Routine 11/12/2019 METABOLIC PANEL (CH12CT) 4:30 AM PAINT DEPARTMENT SUPERVISOR HC CBC W AUTOMATED DIFF Routine 11/12/2019 (HPDCT) 4:30 AM PAINT DEPARTMENT SUPERVISOR HC URIC ACID Routine 11/12/2019 4:30 AM PAINT DEPARTMENT SUPERVISOR HC LD(LDH;LACTIC Routine 11/12/2019 DEHYDROGENASE) 4:30 AM PAINT DEPARTMENT SUPERVISOR MRI PELVIS WO/W CONTRAST Routine 11/11/2019 10:01 PM PAINT DEPARTMENT SUPERVISOR MRI L-SPINE WO/W CONTRAST Routine 11/11/2019 10:01 PM PAINT DEPARTMENT SUPERVISOR HC VRE SCREEN Routine 11/11/2019 2:08 PM PAINT DEPARTMENT SUPERVISOR documented in this encounter Results * BONE MARROW (11/13/2019 4:09 PM PAINT DEPARTMENT SUPERVISOR) PATHOLOGY [facility] [employer] [facility] www[email or web address] Department of Pathology and Laboratory Medicine [address] [place] [address] Surgical Pathology Office: [phone] SURGICAL PATHOLOGY REPORT NAME: REFUGIO LOPEZ SURG PATH #: [id number] MR #: [id number] ALT ID #: LOCATION: 42 DATE OF [...] core biopsy (Block B1) is negative for Enterprise-5; supporting the above diagnosis. 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 Ancillary Studies: Flow Cytometry: Performed, see separate report ([id number]) which reports a negative immunophenotypic study. Cytogenetics: Performed, see separate report Fluorescence In Situ Hybridization: Not performed Molecular Genetics: Not performed Preliminary Diagnosis: Not performed If immunohistochemical stains and/or in situ hybridization are cited in this report, the performance characteristics were determined by the Department of Pathology and Laboratory Medicine of the [facility] ([employer]) in compliance with CLIA'88 regulations. [...] of Pathology and Laboratory Medicine of the [facility]. It has not been cleared or approved by the FDA. The FDA has determined that such clearance or approval is not necessary. Specimen Performing Organization Address City/State/Zipcode Ph one Number [facility] [address] [place] [address] * FLOW CYTOMETRY (11/13/2019 3:34 PM PAINT DEPARTMENT SUPERVISOR) PATHOLOGY [facility] MAIN LAB RE[facility] www.[email or web address] Eugene Velázquez MD, Director of Flow Cytometry Laboratory Department of Pathology and Laboratory Medicine [address] [place] [address] Surgical Pathology Office: [phone] FLOW CYTOMETRY REPORT NAME: REFUGIO LOPEZ SURG PATH #: [id number] MR #: [id number] SPECIMEN CLASS: LC BILLING #: [id number] ALT ID #: LOCATION: 42 DATE OF PROCEDURE: 11/13/2019 AGE: 59 SEX: M DATE RECEIVED: 11/13/2019 : 1960 TIME RECEIVED: 16:09 PHYSICIAN: RANDY GARCIA DATE OF REPORT: 11/16/2019 COPY TO: OLEG MORELAND DO DATE OF PRINTIN11/16/2019 Material Received: A: Bone Marrow History: 59 year old male with history of diffuse large B-cell lymphoma. ############################## ############################## ############ Final Diagnosis: Bone marrow, flow cytometry: Negative immunophenotypic study Interpretation: Lymphocytes comprise 36% of total events. The majority are T cells with a normal CD4:CD8 ratio and normal antigen expression. Mature B cells are absent. There is no immunophenotypic evidence of non-Hodgkin lymphoma. Attestation: By this signature, I attest that I have personally formulated the final interpretation expressed in this report and that the above diagnosis is based upon my examination of the slides and/or other material indicated in this report. +++Electronically Signed Out By+++ malu/11/14/2019 Interpreted by: MD Nahid Patel M.D. 11/16/2019 ############################## ############################## ############ Lab Data: Flow Cytometry - Lymphoma Panel B Cell Associated Markers (% Positive Cells): CD19 = 0; CD19+CD5+ = 0; CD20 = 0; CD23 = 0; CD23+CD5+ = 0; [place] = 0; Lambda = 0; [place]:Lambda ratio = n/a T Cell Associated Markers (% Positive Cells): CD2 = 89; CD3 = 76; CD4 = 51; CD5 = 74; CD7 = 91; CD8 = 19 CD4:CD8 ratio = 3.4 Miscellaneous Markers (% Positive Cells): CD1d = 2; CD10 = 0; CD34 = 0; CD38 = 44; CD45 = 100; CD56 = 34; FMC7 = 0; CD200 = 0 Cell Viability (%): n/a Number of Cells Analyzed: 324,070 Total Number of Markers: 19 Summary of Marker Combinations: [place]/Lambda/5/19/38/45/10/20; FMC7/23/200/34/1d//02/01; 2/7/5/3/4/45/56/8 This test was developed and its performance characteristics determined by the [facility] Flow Cytometry Laboratory. It has not been cleared or approved by the U.S. Food and Drug Administration (FDA). The FDA has determined that such clearance or approval is not necessary. Specimen Performing Organization Address City/[facility] [place], [place] Ph one Number [facility] [address] [place] [address] * CHROMOSOMES BONE MARROW (11/13/2019 3:34 PM PAINT DEPARTMENT SUPERVISOR) [facility] Chromosomes Cytogenetics Report Available [facility] Bone Marrow in Epic Specimen Bone Marrow Narrative Performed At This result has an attachment that is n ot available. Performing Organization Address City/State/[facility] Ph one Number [facility] [address] [place] [address] * FE STAIN (11/13/2019 3:34 PM PAINT DEPARTMENT SUPERVISOR) Pathologist [facility] Bone Marrow FE SEE PATHOLOGY REPORT [facility] Specimen Bone Marrow - Bone Marrow Performing Organization Address City/[facility] [place] Ph one Number [facility] [address] [place] [address] * BONE MARROW BIOPSY (11/13/2019 3:34 PM PAINT DEPARTMENT SUPERVISOR) Bone Marrow Bx SEE PATHOLOGY REPORT MAIN LAB Specimen Bone Marrow - Bone Marrow Performing Organization Address City/[facility] Ph one Number MAIN LAB [address] [place] [address] * BONE MARROW ASP (11/13/2019 3:34 PM PAINT DEPARTMENT SUPERVISOR) Bone Marrow Asp SEE PATHOLOGY REPORT [facility] MAIN LAB Specimen Bone Marrow - Bone Marrow Performing Organization Address City/[facility] Ph one Number MAIN LAB [address] [place] [address] * LEUKEMIA/LYMPHOMA PNL, BONE MARROW (11/13/2019 3:34 PM PAINT DEPARTMENT SUPERVISOR) Leuk/Lymph SEE PATHOLOGY REPORT MAIN LAB Interpretation Specimen/LLM BONE MARROW MAIN LAB Specimen Bone Marrow Performing Organization Address [facility] [place], [place] Ph one Number MAIN LAB [address] [place] [address] * MANUAL DIFF (11/13/2019 5:00 AM PAINT DEPARTMENT SUPERVISOR) Segmented 54 41 - 77 % MAIN LAB Neutrophils Lymphocytes 21 (L) 24 - 44 % MAIN LAB Monocytes 19 (H) 4 - 12 % MAIN LAB Eosinophil 5 0 - 5 % MAIN LAB Atypical Lym 1 % [facility] MAIN LAB Platelet NORMAL MAIN LAB Estimate RBC Morph ANISO MAIN LAB Specimen Performing Organization Address [facility] [place] [place] Ph one Number MAIN LAB [address] [place] [address] * PHOSPHORUS CELLULAR THERAPEUTICS (11/13/2019 5:00 AM PAINT DEPARTMENT SUPERVISOR) Phosphorus 5.5 (H) 2.0 - 4.5 MG/DL MAIN LAB Specimen Blood Performing Organization Address [facility] Ph one Number MAIN LAB [address] [place] [address] * MAGNESIUM CELLULAR THERAPEUTICS (11/13/2019 5:00 AM PAINT DEPARTMENT SUPERVISOR) Magnesium 1.9 1.6 - 2.6 mg/dL MAIN LAB Specimen Blood Performing Organization Address [facility] Ph one Number MAIN LAB [address] [place] [address] * COMPREHENSIVE METABOLIC PANEL CELLULAR THERAPEUTICS (11/13/2019 5:00 AM PAINT DEPARTMENT SUPERVISOR) Sodium 137 137 - 147 MMOL/L [facility] MAIN LAB Potassium 4.3 3.5 - 5.1 MMOL/L [facility] MAIN LAB Chloride 101 98 - 110 MMOL/L [facility] MAIN LAB Glucose 134 (H) 70 - 100 MG/DL [facility] MAIN LAB Blood Urea 13 7 - 25 MG/DL [facility] MAIN LAB Nitrogen Creatinine 0.72 0.4 - 1.24 MG/DL [facility] MAIN LAB Calcium 8.9 8.5 - 10.6 MG/DL [facility] MAIN LAB Total Protein 6.0 6.0 - 8.0 G/DL [facility] MAIN LAB Total Bilirubin 0.5 0.3 - 1.2 MG/DL [facility] MAIN LAB Albumin 3.9 3.5 - 5.0 G/DL [facility] MAIN LAB Alk Phosphatase 89 25 - 110 U/L [facility] MAIN LAB AST (SGOT) 19 7 - 40 U/L [facility] MAIN LAB CO2 29 21 - 30 MMOL/L [facility] MAIN [facility] ALT (SGPT) 10 7 - 56 U/L [facility] MAIN LAB Anion Gap 7 3 - 12 [facility] MAIN LAB eGFR Non >60 >60 mL/min [facility] MAIN LAB Comment: [place] The eGFR is not validated f or use in drug dosing adjustments. Continue to use estimated creatinine clearance per dosing reference text. Please contact the Clinical Pharmacist for questions. eGFR >60 >60 mL/min [facility] MAIN LAB [place] Comment: The eGFR is not validated for use in drug dosing adjustments. Continue to use estimated creatinine clearance per dosing reference text. Please contact the Clinical Pharmacist for questions. Specimen Blood Performing Organization Address City/State/Zipcode Ph one Number [facility] MAIN LAB [address] [place] [address] * CBC AND DIFF CELLULAR THERAPEUTICS (11/13/2019 5:00 AM PAINT DEPARTMENT SUPERVISOR) White Blood 3.7 (L) 4.5 - 11.0 K/UL [facility] MAIN LAB Cells RBC 3.47 (L) 4.4 - 5.5 M/UL [facility] MAIN LAB Hemoglobin 11.4 (L) 13.5 - 16.5 GM/DL [facility] MAIN LAB Hematocrit 32.8 (L) 40 - 50 % [facility] MAIN LAB MCV 94.7 80 - 100 FL [facility] MAIN LAB MCH 32.8 26 - 34 PG [facility] MAIN LAB MCHC 34.6 32.0 - 36.0 G/DL [facility] MAIN LAB RDW 15.3 (H) 11 - 15 % [facility] MAIN LAB Platelet Count 158 150 - 400 K/UL [facility] MAIN LAB MPV 7.1 7 - 11 FL [facility] LAB Neutrophils 47 41 - 77 % [facility] LAB Lymphocytes 23 (L) 24 - 44 % [facility] LAB Monocytes 21 (H) 4 - 12 % [facility] LAB Eosinophils 8 (H) 0 - 5 % [facility] LAB Basophils 1 0 - 2 % [facility] LAB Absolute 1.80 1.8 - 7.0 K/UL [facility] LAB Neutrophil Count Absolute Lymph 0.90 (L) 1.0 - 4.8 K/UL [facility] MAIN LAB Count Absolute 0.80 0 - 0.80 K/UL [facility] LAB Monocyte Count Absolute 0.30 0 - 0.45 K/UL [facility] LAB Eosinophil Count Absolute 0.00 0 - 0.20 K/UL [facility] LAB Basophil Count Specimen Blood Performing Organization Address City/State/Zipcode Ph one Number [facility] [address] [place] [address] * FLOW CYTOMETRY (11/12/2019 2:30 PM PAINT DEPARTMENT SUPERVISOR) PATHOLOGY [facility] www.[email or web address] Eugene Velázquez MD, Director of Flow Cytometry Laboratory Department of Pathology and Laboratory Medicine [address] [place] [address] Surgical Pathology Office: [phone] FLOW CYTOMETRY REPORT NAME: REFUGIO LOPEZ R SURG PATH #: [id number] MR #: [id number] SPECIMEN CLASS: LC BILLING #: [id number] ALT ID #: LOCATION: 42 DATE OF PROCEDURE: 11/12/2019 AGE: 59 SEX: M DATE RECEIVED: 11/12/2019 : 1960 TIME RECEIVED: 16:01 PHYSICIAN: OLEG MORELAND DO DATE OF REPORT: 11/13/2019 COPY TO: DATE OF PRINTIN11/13/2019 Material Received: A: L4 Bone Biopsy ############################## ############################## ############ Final Diagnosis: A. L4 Bone Biopsy: Negative immunophenotypic study. See interpretation. Interpretation: Lymphocytes comprise 8% of total events. The majority are T cells with normal CD4 to CD8 ratio and normal antigen expression. B cells are polyclonal with normal antigen expression. There is no immunophenotypic evidence of non-Hodgkin lymphoma. Attestation: By this signature, I attest that I have personally formulated the final interpretation expressed in this report and that the above diagnosis is based upon my examination of the slides and/or other material indicated in this report. +++Electronically Signed Out By+++ enid/11/12/2019 Interpreted by: iDallo Ye MD 11/13/2019 ############################## ############################## ############ Lab Data: Flow Cytometry - Lymphoma Panel B Cell Associated Markers (% Positive Cells): CD19 = 0; CD19+CD5+ = 0; CD20 = 0; CD23 = 0; CD23+CD5+ = 0; [place] = 0; Lambda = 0; [place]:Lambda ratio = NA T Cell Associated Markers (% Positive Cells): CD2 = 92; CD3 = 78; CD4 = 51; CD5 = 75; CD7 = 87; CD8 = 28 CD4:CD8 ratio = 2.0 Miscellaneous Markers (% Positive Cells): CD1d = 3; CD10 = 0; CD34 = 0; CD38 = 52; CD45 = 100; CD56 = 24; FMC7 = 0; CD200 = 0 Cell Viability (%): 98 Number of Cells Analyzed: 90101 Total Number of Markers: 19 Summary of Marker Combinations: [place]/Lambda/5/19/38/45/10/20; FMC7/23/200/34/1d/45//; 2/7/5/3/4/45/56/8 This test was developed and its performance characteristics determined by the [facility] Flow Cytometry Laboratory. It has not been cleared or approved by the U.S. Food and Drug Administration (FDA). The FDA has determined that such clearance or approval is not necessary. Specimen Performing Organization Address City/State/Zipcode Ph one Number MAIN LAB [address] [place] [address] * FLOW CYTOMETRY (11/12/2019 2:30 PM PAINT DEPARTMENT SUPERVISOR) PATHOLOGY [facility] MAIN LAB REPORT [facility] www[email or web address] Eugene Velázquez MD, Director of Flow Cytometry Laboratory Department of Pathology and Laboratory Medicine [address] [place] [address] Surgical Pathology Office: [phone] FLOW CYTOMETRY REPORT NAME: REFUGIO LOPEZ SURG PATH #: [id number] MR #: [id number] SPECIMEN CLASS: LC BILLING #: [id number] ALT ID #: LOCATION: 42 DATE OF PROCEDURE: 11/12/2019 AGE: 59 SEX: M DATE RECEIVED: 11/12/2019 : 1960 TIME RECEIVED: 16:00 PHYSICIAN: OLEG MORELAND DO DATE OF REPORT: 11/13/2019 COPY TO: DATE OF PRINTIN11/13/2019 Material Received: A: T9 Bone Biopsy ############################## ############################## ############ Final Diagnosis: A. T9 Bone Biopsy: Negative immunophenotypic study. See interpretation. Interpretation: Lymphocytes comprise 19% of total events. The majority are T cells with normal CD4 to CD8 ratio and normal antigen expression. B cells are polyclonal with normal antigen expression. There is no immunophenotypic evidence of non-Hodgkin lymphoma. Attestation: By this signature, I attest that I have personally formulated the final interpretation expressed in this report and that the above diagnosis is based upon my examination of the slides and/or other material indicated in this report. +++Electronically Signed Out By+++ njr/11/12/2019 Interpreted by: Diallo Ye MD 11/13/2019 ############################## ############################## ############ Lab Data: Flow Cytometry - Lymphoma Panel B Cell Associated Markers (% Positive Cells): CD19 = 2; CD19+CD5+ = 0; CD20 = 2; CD23 = 0; CD23+CD5+ = 0; [place] = 3; Lambda = 0; [place]:Lambda ratio = NA T Cell Associated Markers (% Positive Cells): CD2 = 87; CD3 = 68; CD4 = 51; CD5 = 67; CD7 = 73; CD8 = 22 CD4:CD8 ratio = 2.1 Miscellaneous Markers (% Positive Cells): CD1d = 9; CD10 = 3; CD34 = 0; CD38 = 61; CD45 = 100; CD56 = 20; FMC7 = 0; CD200 = 0 Cell Viability (%): 79 Number of Cells Analyzed: 1426 Total Number of Markers: 19 Summary of Marker Combinations: [place]/Lambda/5/19/38/45/10/20; FMC7/23/200/34/1d//02/01; 2/7/5/3/4/45/56/8 This test was developed and its performance characteristics determined by the [facility] Flow Cytometry Laboratory. It has not been cleared or approved by the U.S. Food and Drug Administration (FDA). The FDA has determined that such clearance or approval is not necessary. Specimen Performing Organization Address [facility] one Number [facility] LAB [address] [place] [address] * LEUKEMIA/LYMPHOMA PANEL FLUID/TISSUE (11/12/2019 2:30 PM PAINT DEPARTMENT SUPERVISOR) Leuk/Lymph SEE PATHOLOGY REPORT MAIN LAB Interpretation Specimen/LLM L4 BONE BIOPSY [facility] LAB Specimen Performing Organization Address [facility] [place] [place] Ph one Number [facility] [address] [place] [address] * LEUKEMIA/LYMPHOMA PANEL FLUID/TISSUE (11/12/2019 2:30 PM PAINT DEPARTMENT SUPERVISOR) Leuk/Lymph SEE PATHOLOGY REPORT MAIN LAB Interpretation Specimen/LLM T9 BONE BIOPSY [facility] Corrected on 11/12 AT 1552: previously reported as BIOPSY Specimen Biopsy Performing Organization Address [facility] [place] Ph one Number [facility] [address] [place] [address] * IR PERCUTANEOUS BIOPSY (11/12/2019 1:57 PM PAINT DEPARTMENT SUPERVISOR) Specimen Impressions Performed At Impression: Fluoroscopically guided biopsy of the T9 and T4 vertebral body as [facility] RAD RESULTS discussed above. IDorian M.D., the attending rad iologist, was present [...] Interface, Radiant Results - 11/12/2019 3:05 PM PAINT DEPARTMENT SUPERVISOR Exam: Fluoroscopically guided biopsy of T9 vertebral [...] interpretations and opinions expressed in this report. @ Finalized by Dorian Osei M.D. on 11/12/2019 3:02 PM. Dictated by Dorian Osei M.D. on 11/12/2019 3:00 PM. Performing Organization Address City/State/Zipcode Ph one Number [facility] RAD RESULTS * PATHOLOGY/CYTOLOGY REQUEST (11/12/2019 12:30 PM PAINT DEPARTMENT SUPERVISOR) PATHOLOGY [facility] MAIN LAB REPORT HEALTH SYSTEM www[email or web address] Department of Pathology and Laboratory Medicine [address] [place] [address] Surgical Pathology Office: [phone] SURGICAL PATHOLOGY REPORT NAME: CARRINGTON LOPEZJANAY Fajardo SURG PATH #: [id number] MR #: [id number] SPECIMEN CLASS: SR BILLING #: [id number] ALT ID #: LOCATION: 42 DATE OF PROCEDURE: 11/12/2019 AGE: 59 SEX: M DATE RECEIVED: 11/12/2019 : 1960 TIME RECEIVED: 15:56 PHYSICIAN: TREVOR AMIN DATE OF REPORT: 11/17/2019 COPY TO: OLEG MORELAND DO DATE OF PRINTIN11/17/2019 ############################## ############################## [...] separate flow cytometry reports in Results Review, [id number], and [id number]). Pursuant to the Executive Director Contract Shop Program at the [facility] Pathology Department, selected slides from this case [...] of Pathology and Laboratory Medicine of the [facility] ([employer]) in compliance with CLIA'88 regulations. [...] of Pathology and Laboratory Medicine of the [facility]. It has not been cleared or approved by the FDA. The FDA has determined that such clearance or approval is not necessary. Specimen Other (Specify) Performing Organization Address City/[facility] Ph one Number [facility] [address] [place] [address] * PHOSPHORUS CELLULAR THERAPEUTICS (11/12/2019 4:30 AM PAINT DEPARTMENT SUPERVISOR) Phosphorus 5.3 (H)Comment: NOTE NEW 2.0 - 4.5 MG/DL [facility] LAB REFERENCE RANGES Specimen Blood Performing Organization Address City/[facility] Cent[facility] Ph one Number MAIN LAB [address] [place] [address] * MAGNESIUM CELLULAR THERAPEUTICS (11/12/2019 4:30 AM PAINT DEPARTMENT SUPERVISOR) Magnesium 1.9 1.6 - 2.6 mg/dL MAIN LAB Specimen Blood Performing Organization Address City/[facility] Ph one Number [facility] [address] [place] [address] * COMPREHENSIVE METABOLIC PANEL CELLULAR THERAPEUTICS (11/12/2019 4:30 AM PAINT DEPARTMENT SUPERVISOR) Pathologist [facility] Sodium 140 137 - 147 MMOL/L [facility] MAIN [facility] Potassium 4.2 3.5 - 5.1 MMOL/L [facility] Chloride 105 98 - 110 MMOL/L [facility] Glucose 111 (H) 70 - 100 MG/DL [facility] Blood Urea 11 7 - 25 MG/DL [facility] Nitrogen Creatinine 0.67 0.4 - 1.24 MG/DL [facility] Calcium 8.7 8.5 - 10.6 MG/DL [facility] Total Protein 5.4 (L) 6.0 - 8.0 G/DL [facility] Total Bilirubin 0.4 0.3 - 1.2 MG/DL [facility] Albumin 3.7 3.5 - 5.0 G/DL [facility] Alk Phosphatase 81 25 - 110 U/L [facility] AST (SGOT) 15 7 - 40 U/L [facility] CO2 27 21 - 30 MMOL/L [facility] ALT (SGPT) 10 7 - 56 U/L [facility] Anion Gap 8 3 - 12 [facility] eGFR Non >60 >60 mL/min [facility] Comment: [place] The eGFR is not validated f or use in drug dosing adjustments. Continue to use estimated creatinine clearance per dosing reference text. Please contact the Clinical Pharmacist for questions. eGFR >60 >60 mL/min [facility]IN [facility] [place] Comment: The eGFR is not validated for use in drug dosing adjustments. Continue to use estimated creatinine clearance per dosing reference text. Please contact the Clinical Pharmacist for questions. Specimen Blood Performing Organization Address City/State/Zipcode Ph one Number [facility] MAIN [facility] [address] [place] [address] * CBC AND DIFF CELLULAR THERAPEUTICS (11/12/2019 4:30 AM PAINT DEPARTMENT SUPERVISOR) White Blood 2.6 (L) 4.5 - 11.0 K/UL [facility] Cells RBC 3.29 (L) 4.4 - 5.5 M/UL [facility] Hemoglobin 10.8 (L) 13.5 - 16.5 GM/DL [facility] Hematocrit 31.5 (L) 40 - 50 % [facility] MCV 95.8 80 - 100 FL [facility] MCH 32.7 26 - 34 PG [facility] MCHC 34.2 32.0 - 36.0 G/DL [facility] RDW 15.5 (H) 11 - 15 % [facility] Platelet Count 154 150 - 400 K/UL [facility] MPV 7.1 7 - 11 FL [facility] Neutrophils 41 41 - 77 % [facility] Lymphocytes 26 24 - 44 % [facility] Monocytes 23 (H) 4 - 12 % [facility] Eosinophils 8 (H) 0 - 5 % [facility] Basophils 2 0 - 2 % [facility] Absolute 1.10 (L) 1.8 - 7.0 K/UL [facility] Neutrophil Count Absolute Lymph 0.70 (L) 1.0 - 4.8 K/UL [facility] Count Absolute 0.60 0 - 0.80 K/UL [facility] Monocyte Count Absolute 0.20 0 - 0.45 K/UL [facility] Eosinophil Count Absolute 0.00 0 - 0.20 K/UL [facility] Basophil Count Specimen Blood Performing Organization Address [facility] [place], [place] Ph one Number [facility] MAIN [facility] [address] [place] [address] * URIC ACID (11/12/2019 4:30 AM PAINT DEPARTMENT SUPERVISOR) Uric Acid 4.0 4.0 - 8.0 MG/DL [facility] MAIN [facility] Specimen Blood Performing Organization Address [facility] [place], [place] Ph one Number [facility] MAIN LAB [address] [place] [address] * LDH-LACTATE DEHYDROGENASE (11/12/2019 4:30 AM PAINT DEPARTMENT SUPERVISOR) Lactate 170 100 - 210 U/L [facility] MAIN [facility] Dehydrogenase Specimen Blood Performing Organization Address [facility] one Number MAIN LAB [address] [place] [address] * MRI PELVIS WO/W CONTRAST (11/11/2019 10:01 PM PAINT DEPARTMENT SUPERVISOR) Specimen Impressions Performed At Scattered, enhancing T2 [...] Interface, Radiant Results - 11/12/2019 4:13 PM PAINT DEPARTMENT SUPERVISOR MRI of the pelvis Clinical history: Cancer [...] MRI L-SPINE WO/W CONTRAST (11/11/2019 10:01 PM PAINT DEPARTMENT SUPERVISOR) Specimen Impressions Performed At 1. Prior T12-L2 [...] Interface, Radiant Results - 11/12/2019 5:19 PM PAINT DEPARTMENT SUPERVISOR EXAM: MRI L-SPINE HISTORY: , Cancer extrathoracic [...] on 11/12/2019 4:29 PM. Performing Organization Address City/State/[facility] Centercode Ph one Number RAD RESULTS * VRE SCREEN (11/11/2019 2:08 PM PAINT DEPARTMENT SUPERVISOR) Battery Name VRE SCREEN MAIN LAB Specimen PERIRECTAL SWAB MAIN LAB Description Special NONE MAIN LAB Requests Culture NO VRE ISOLATED MAIN LAB Report Status FINAL MAIN LAB 11/13/2019 Specimen Perirectal Swab Performing Organization Address City/[facility] [place], [place] Ph one Number MAIN LAB [address] [place] [address] documented in this encounter Visit Diagnoses Diagnosis Diffuse large B-cell lymphoma of extran odal site excluding spleen and other solid organs (HCC) Diffuse large B cell lymphoma (HCC) Other malignant lymphomas, unspecified site, extranodal and solid organ sites documented in this encounter Administered Medications Action Date Dose Rate Site Medication Order MAR Action 11/13/2019 9:01 AM PAINT DEPARTMENT SUPERVISOR 400 mg acyclovir (ZOVIRAX) tablet 400 mg Given 400 mg, Oral, TWICE DAILY, First dose o n 11/11/19 at 2100, Until Discontinued 400 mg Given 11/12/2019 8:05 PM PAINT DEPARTMENT SUPERVISOR 400 mg Given 11/12/2019 8:12 AM PAINT DEPARTMENT SUPERVISOR 11/13/2019 9:01 AM PAINT DEPARTMENT SUPERVISOR 300 mg allopurinoL (ZYLOPRIM) tablet 300 mg Given 300 mg, Oral, DAILY, First dose on Jennifer 11/12/19 at 0900, Until Discontinued 300 mg Given 11/12/2019 8:12 AM PAINT DEPARTMENT SUPERVISOR 11/13/2019 8:58 AM PAINT DEPARTMENT SUPERVISOR 200 mg amiodarone (CORDARONE) tablet 200 mg Given 200 mg, Oral, DAILY, First dose on Sat11/12/19 at 0900, Until Discontinued 200 mg Given 11/12/2019 8:11 AM PAINT DEPARTMENT SUPERVISOR apixaban (ELIQUIS) tablet 5 mg 5 mg, Oral, TWICE DAILY, First dose on Sat11/14/19 at 0900, Until Discontinued , May crush 5 mg or 2.5 mg tablets and suspend in 60 mL of D5W followed by immediate delivery through a nasogastri c tube. No information regarding administration of suspension by mouth i s available. NOTE: This is a HIGH ALERT Medication., 11/13/2019 8:58 AM PAINT DEPARTMENT SUPERVISOR 40 mg atorvastatin (LIPITOR) tablet 40 mg Given 40 mg, Oral, DAILY, First dose on Jennifer 11/12/19 at 0900, Until Discontinued 40 mg Given 11/12/2019 8:12 AM PAINT DEPARTMENT SUPERVISOR 11/13/2019 9:01 AM PAINT DEPARTMENT SUPERVISOR 75 mg clopiDOGrel (PLAVIX) tablet 75 mg Given 75 mg, Oral, DAILY, First dose on Sat11/13/19 at 0900, Until Discontinued, This Medication can increase the risk o f bleeding and may need to be held prior to surgery or invasive procedures. Consult physician in advance., 11/12/2019 8:05 PM PAINT DEPARTMENT SUPERVISOR 100 mg docusate (COLACE) capsule 100 mg Given 100 mg, Oral, TWICE DAILY, First dose o n 11/11/19 at 2100, Until Discontinued , Hold for loose stools, 11/11/2019 10:27 PM PAINT DEPARTMENT SUPERVISOR 1 patch Back, Up per Left fentaNYL (DURAGESIC) 75 mcg/hr patch 1 Patch/Topica patch l Applied 1 patch, Transdermal, Administer over 7 2 Hours, EVERY 72 HOURS, First dose on 11/11/19 at 1445, Until Discontinued FENTANYL CITRATE (PF) 50 MCG/ML IJ SOLN (Cabinet Override) NOW, 1 dose, Sat11/13/19 at 1515, Created by cabinet override, Created by cabinet override, 11/12/2019 1:55 PM PAINT DEPARTMENT SUPERVISOR 50 mcg fentaNYL citrate PF (SUBLIMAZE) Given injection 25-50 mcg 25-50 mcg, Intravenous, ONCE, 1 dose, Jennifer 11/12/19 at 1300, Discontinue after procedure complete., 11/13/2019 3:13 PM PAINT DEPARTMENT SUPERVISOR 50 mcg fentaNYL citrate PF (SUBLIMAZE) Given injection 50-100 mcg 50-100 mcg, Intravenous, ONCE PRN, 1 dose, Starting Sat11/13/19 at 1501, Until Sat11/13/19 at 1513, Pain Injectable, Give for pain during bone marrow biopsy., 11/12/2019 2:30 PM PAINT DEPARTMENT SUPERVISOR 50 mcg fentaNYL citrate PF (SUBLIMAZE) Given injection INTRA-PROCEDURE MED, Starting Sat11/12/19 at 1419, Until Sat11/12/19 at 1430 50 mcg Given 11/12/2019 2:19 PM PAINT DEPARTMENT SUPERVISOR flumazeniL (ROMAZICON) injection 0.2 mg 0.2 mg, Intravenous, NEEDED, Startin g Sat11/12/19 at 1351, Until Sat11/13/19 at 1953, Respiratory Depression 11/12/2019 8:12 AM PAINT DEPARTMENT SUPERVISOR 40 mg furosemide (LASIX) tablet 40 mg Given 40 mg, Oral, DAILY, First dose on Sat11/12/19 at 0900, Until Discontinued 11/13/2019 1:38 PM PAINT DEPARTMENT SUPERVISOR 300 mg gabapentin (NEURONTIN) capsule 300 mg Given 300 mg, Oral, EVERY 8 HOURS, First dos e on Sat11/11/19 at 1415, Until Discontinued 300 mg Given 11/13/2019 6:37 AM PAINT DEPARTMENT SUPERVISOR 300 mg Given 11/12/2019 10:15 PM PAINT DEPARTMENT SUPERVISOR 11/11/2019 9:45 PM PAINT DEPARTMENT SUPERVISOR 20 mL gadobenate dimeglumine (MULTIHANCE) Given injection 20 mL 20 mL, Intravenous, ONCE, 1 dose, Sat11/11/19 at 2145, NOTE: This is a HIGH ALERT Medication., 11/12/2019 9:09 PM PAINT DEPARTMENT SUPERVISOR 25 mg hydrOXYzine (ATARAX) tablet 25 mg Given 25 mg, Oral, ONCE, 1 dose, Sat11/12/19 at 2115 11/13/2019 3:13 PM PAINT DEPARTMENT SUPERVISOR 0.5 mg LORazepam (ATIVAN) tablet 0.5 mg Given 0.5 mg, Oral, ONCE PRN, 1 dose, Startin g Sat11/13/19 at 1501, Until Sat11/13/19 at 1513, Anxiety PO, Give for anxiety during bone marrow biopsy., LORAZEPAM 0.5 MG PO TAB (Cabinet Override) NOW, 1 dose, Sat11/13/19 at 1515, Created by cabinet override, Created by cabinet override, 11/12/2019 8:08 AM PAINT DEPARTMENT SUPERVISOR 1 g 100 mL/hr magnesium sulfate 1 g/D5W 100 mL IVPB Given - New 1 g, Intravenous, 100 mL, Administer Bag over 1 Hours, EVERY 1 HOUR FOR 2 DOSES , 2 doses, First dose on Jennifer 11/12/19 at 0700, Last dose on Jennifer 11/12/19 at 0800, Each 1gm delivers 8.1 mEq Magnesium., 1 g 100 mL/hr Given - New Bag 11/12/2019 7:01 AM PAINT DEPARTMENT SUPERVISOR 11/12/2019 10:15 PM PAINT DEPARTMENT SUPERVISOR 5 mg melatonin tablet 5 mg Given 5 mg, Oral, AT BEDTIME PRN, Starting We 11/11/19 at 1334, Until Sat11/13/19 at 1953, Insomnia 5 mg Given 11/11/2019 10:29 PM PAINT DEPARTMENT SUPERVISOR 11/13/2019 8:58 AM PAINT DEPARTMENT SUPERVISOR 150 mg metoprolol XL (TOPROL XL) tablet 150 mg Given 150 mg, Oral, DAILY, First dose on Jennifer 11/12/19 at 0900, Until Discontinued, Hold for heart rate < 60 bpm or systoli c BP < 90 tablets may be cut in half, DO NOT CRUSH or CHEW, 150 mg Given 11/12/2019 8:11 AM PAINT DEPARTMENT SUPERVISOR 11/12/2019 1:55 PM PAINT DEPARTMENT SUPERVISOR 1 mg midazolam (VERSED) injection 1 mg Given 1 mg, Intravenous, ONCE, 1 dose, Jennifer 11/12/19 at 1300, Discontinue when procedure complete., 11/12/2019 2:28 PM PAINT DEPARTMENT SUPERVISOR 0.5 mg midazolam (VERSED) injection Given INTRA-PROCEDURE MED, Starting Jennifer 11/12/19 at 1428, Until Jennifer 11/12/19 at 1428 naloxone (NARCAN) injection 0.08 mg 0.08 mg, Intravenous, NEEDED, Starting Jennifer 11/12/19 at 1351, Until Sat11/13/19 at 1953, Respiratory Depression , -FOR RESPIRATORY RATE < 7/MIN: DIlute one ampule naloxone 0.4 mg in 9 mL NS for injection (for a total of 10 mL of dilution). Inject 2 mL of diluted naloxone every 2 minutes until respiratory rate improves (RR >7/min), and/or drowsiness abates. Call physician. -IF PATIENT IS APNEIC: Give naloxone 0.4 mg every 2 minutes until respiratory rate improves (RR >7/min) and call Rapid Response Team. PROTECT FROM LIGHT., 11/13/2019 1:38 PM PAINT DEPARTMENT SUPERVISOR 10 mg oxyCODONE (ROXICODONE) tablet 5-10 mg Given 5-10 mg, Oral, EVERY 3 HOURS PRN, Starting Sat11/11/19 at 1334, Until Sat11/13/19 at 1953, Pain PO 10 mg Given 11/13/2019 9:41 AM PAINT DEPARTMENT SUPERVISOR 10 mg Given 11/13/2019 6:44 AM PAINT DEPARTMENT SUPERVISOR 11/12/2019 8:04 PM PAINT DEPARTMENT SUPERVISOR 17 g polyethylene glycol 3350 (MIRALAX) Given packet 17 g 17 g, Oral, TWICE DAILY, First dose on Sat11/11/19 at 2100, Until Discontinued , 8.5 GRAMS = 0.5 PACKET 17 GRAMS = 1 PACKET 34 GRAMS = 2 PACKETS, 17 g Given 11/11/2019 8:16 PM PAINT DEPARTMENT SUPERVISOR 11/13/2019 8:58 AM PAINT DEPARTMENT SUPERVISOR 1 tablet senna/docusate (SENOKOT-S) tablet 1 Given tablet 1 tablet, Oral, TWICE DAILY, First dose on Sat11/11/19 at 2100, Until Discontinued, Hold for loose stools, 1 tablet Given 11/12/2019 8:05 PM PAINT DEPARTMENT SUPERVISOR 1 tablet Given 11/12/2019 8:11 AM PAINT DEPARTMENT SUPERVISOR 11/13/2019 9:03 AM PAINT DEPARTMENT SUPERVISOR Back, Up per Left Verification of Patch Placement and Patch/Topica Integrity - Fentanyl 75 MCG/HR l Verified TWICE DAILY, First dose on Sat11/11/19 at 1445, Until Discontinued, Patch checks are required every shift to ensure the patch is still intact and in place. Please verify patch check findings using this MAR entry., Back, Upper Left Patch/Topical Verified 11/12/2019 10:16 PM PAINT DEPARTMENT SUPERVISOR Back, Upper Left Patch/Topical Verified 11/12/2019 8:23 AM PAINT DEPARTMENT SUPERVISOR documented in this encounter
--- NOTE | 2019-12-07 05:02 | NUR ---
called to give report Melani unable to take report at this time. calling back in 5 min
--- OUTSIDE RECORDS SUMMARY | 2019-12-07 05:02 | XMS REPORT | Encounter Summary ---
Author Author [facility] Organization [facility] Address Unknown Phone Unavailable Care Team Providers Care Direct Care Specialist Name Role Phone Bertin Cole DO PCP Madison [place] [address] Shira Castanon MD 100 Reason for Visit * Reason Comments Follow Up Encounter Details Care Team Description Date [place] [address] [place] [address] [phone] Diffuse large B-cell lymphoma of lymph n odes of multiple regions (HCC) (Primary Dx) 11/11/2019 Office Visit [facility] [address] [phone] Social History Date Tobacco Use Types Packs/Day [...] Signs Reading Time Taken Comments Vital Sign 114/63 11/11/2019 10:57 AM FIRE CONTROL ASSISTANT Blood Pressure 80 11/11/2019 10:57 AM FIRE CONTROL ASSISTANT Pulse 36.3 C (97.4 F) 11/11/2019 10:57 AM FIRE CONTROL ASSISTANT Temperature 16 11/11/2019 10:57 AM FIRE CONTROL ASSISTANT Respiratory Rate 99% 11/11/2019 10:57 AM FIRE CONTROL ASSISTANT Oxygen Saturation - - Inhaled Oxygen Concentration 101.4 kg (223 lb 9.6 oz) 11/11/2019 10:57 AM FIRE CONTROL ASSISTANT With shoes Weight 185.4 cm (6' 0.99") 11/11/2019 10:57 AM FIRE CONTROL ASSISTANT Taken from 2018 Height 29.51 11/11/2019 10:57 AM FIRE CONTROL ASSISTANT Body Mass Index documented in this encounter Functional Status Date of Assessment Functional Status Response 11/11/2019 Does the patient have a hearing impairment: No 05/19/2019 Does the patient have a visual impairment: Yes documented as of this encounter Progress Notes * Lyn Garcia MD - 11/11/2019 11:00 AM FIRE CONTROL ASSISTANT Date of Service: 11/11/2019 Diagnosis: DLBCL GCB subtype: C-MYC is negative IPI at least 4 Subjective: 1. 59 y.o. Male who continues to followed with us for his history of diffuse lar ge B-cell lymphoma. 2. Developed rogressive back pain in September 2018 and was found to have partial compression fractures and multiple vertebral bones. 3. He had 2 bone marrow biopsies while he was on dexamethasone with inconclusive results. 4. Dexamethasone was discontinued and repeat BMBx 03/28/2019 which revealed the d iagnosis. 5. PET 04/24/2019 showed innumerable intensity FDG lesions throughout the osseous structures and multiple ribs, dorsal vertebra, sacrum and pelvic bones in additi on to the long bones. 6. Initial visit 04/24/2019 and was admitted for further work up and concern for c ord compression. 7. MRI T spine 04/24 -Diffuse abnormal marrow signal thoracic spine compatible w ith known osseous involvement by lymphoma. 8. MRI L spine 04/24 -Marked extraosseous extension of tumor at L1 which in combin ation with retropulsed fragments result in severe central spinal stenosis at the level of the conus and proximal cauda equina. 9. Patient had an urgent surgery 04/26 with T12-L2 decompression and fusion compl icated by dural leak. 10. A. Spine, "epidural tumor", T12-L2 laminectomy: Diffuse large B-cell lymphom a, germinal center type, with necrosis 11. He was started on treatment with dexamethasone 40mg for 4 days and received rituximab on 04/25. 12. Due to insurance difficulties patient and family elected to follow up as out patient for treatment. 13. He was hospitalized at [facility] from 05/14/19-05/18/19 after foster smith a syncopal event and was found to have extensive pulmonary emboli and receive d catheter directed thrombolysis with TPA, additionally had DESx2 placed. At nisha t time he was also found to be in Afib with RVR. He was discharged from [facility] on eliquis, ASA, and plavix. Previous tx HD MTX Dose 1 on 05/21/19. Rituxan 06/04/19 and 06/04/19 at local [facility] HD MTX Dose 2 06/07/19 Rituximab 06/12/2019 Current treatment: R-COEP Cycle 3 08/11/19 Rituximab 375mg/m2 day 1 Cyclophosphamide 750mg/m2 day 1 Vincristine 2mg Day 1 Prednisone 100mg daily days 1-5 Etoposide 50mg/m2 days 1-3 Neulasta 6mg day 4 Interim history Mr. Tse is a 59 year old male with DLBLC with epidural tumor here for restagi ng PET. Since his last visit he has had worsening lower back pain and some progr essive night sweats. He has generalized weakness but improved overall. Denies we ight loss and appetite is fair. He has no other concerns today. He is accompanied by his . Review of Systems Constitutional: Positive for fatigue. Negative for activity change, appetite noel nge, chills, fever and unexpected weight change. HENT: Negative for mouth sores. Respiratory: Negative for cough and shortness of breath. Cardiovascular: Negative for chest pain. Gastrointestinal: Negative for constipation, diarrhea, nausea and vomiting. Genitourinary: Negative for difficulty urinating and hematuria. Musculoskeletal: Positive for back pain. Negative for arthralgias, joint swellin g and myalgias. Skin: Negative for color change and rash. Neurological: Positive for weakness. Negative for numbness. Hematological: Negative for adenopathy. Does not bruise/bleed easily. Psychiatric/Behavioral: Negative for agitation and confusion. The patient is not nervous/anxious. Medical History: Diagnosis Date Back pain CAD [...] INJECTION- LOWER EXTREMITY Right 06/10/2019 Performed by Terry Mustafa MD at [facility] HX HEART CATHETERIZATION KYPHOPLASTY Family History Problem [...] file Social History Narrative Not on file Objective: acetaminophen (TYLENOL) 325 mg tablet Take two tablets by mouth every 6 hour s as needed. Max dose of 4000 mg daily acyclovir (ZOVIRAX) 400 mg tablet Take 400 mg by mouth twice daily. allopurinol (ZYLOPRIM) 300 mg tablet Take one tablet by mouth daily. Take th food. amiodarone (CORDARONE) 200 mg tablet Take with food. 2 tabs twice a day for 5 days. On 06/16 take 2 tabs daily for 7 days. On 06/23 take 1 tab daily and cont inue apixaban (ELIQUIS) 5 mg tablet Take 5 mg by mouth twice daily. atorvastatin (LIPITOR) 40 mg tablet Take one tablet by mouth daily. clopiDOGrel (PLAVIX) 75 mg tablet Take 75 mg by mouth daily. cyclobenzaprine (FLEXERIL) 10 mg tablet Take 10 mg by mouth three times elham y as needed. docusate (COLACE) 100 mg capsule Take one capsule by mouth twice daily. fentaNYL (DURAGESIC) 25 mcg/hr patch Apply one patch to top of skin as direc ignacio every 72 hours (Patient taking differently: Apply to top of skin as directed every 72 hours Indications: 50 mcg patch ) furosemide (LASIX) 40 mg tablet Take one tablet by mouth daily. gabapentin (NEURONTIN) 300 mg capsule Take 300 mg by mouth every 8 hours. insulin aspart U-100 (NOVOLOG FLEXPEN U-100 INSULIN) 100 unit/mL (3 mL) inje ction PEN Inject under the skin. losartan (COZAAR) 25 mg tablet Take one tablet by mouth daily. melatonin 5 mg tab Take one tablet by mouth at bedtime as needed. metFORMIN (GLUCOPHAGE) 500 mg tablet Take 500 mg by mouth twice daily with m eals. metoprolol XL (TOPROL XL) 50 mg extended release tablet Take three tablets b y mouth daily. Multivitamins with Fluoride (MULTI-VITAMIN PO) Take 1 tablet by mouth daily. ondansetron (ZOFRAN) 4 mg tablet Take one tablet by mouth every 8 hours as n eeded for Nausea. oxyCODONE (ROXICODONE, OXY-IR) 5 mg tablet Take one tablet to two tablets by mouth every 3 hours as needed pantoprazole DR (PROTONIX) 40 mg tablet Take one tablet by mouth daily. polyethylene glycol 3350 (MIRALAX) 17 g packet Take one packet by mouth twic e daily. Indications: constipation prednisone (DELTASONE) 50 mg tablet Take 50 mg by mouth daily with breakfast . Indications: 2 a day for 5 day on chemo weeks senna/docusate (SENOKOT-S) 8.6/50 mg tablet Take one tablet by mouth twice d aily. spironolactone (ALDACTONE) 25 mg tablet Take one tablet by mouth daily. Take with food. traMADol (ULTRAM) 50 mg tablet Take one tablet by mouth every 6 hours as nee ded for Pain. zolpidem (AMBIEN) 10 mg tablet Take 10 mg by mouth at bedtime as needed for Sleep. Vitals: 11/11/19 1057 BP: 114/63 BP Source: Arm, Left Upper Patient Position: Sitting Pulse: 80 Resp: 16 Temp: 36.3 C (97.4 F) TempSrc: Oral SpO2: 99% Weight: 101.4 kg (223 lb 9.6 oz) Height: 185.4 cm (72.99") PainSc: Six Body mass index is 29.51 kg/m. Pain Score: Six Pain Loc: Back Pain Addressed: Current regimen working to control pain. Patient Evaluated for a Clinical Trial: Patient not eligible for a treatment tri al (including not needing treatment, needs palliative care, in remission). Eastern Cooperative Oncology Group performance status is 2, Ambulatory and capab le of all selfcare but unable to carry out any work activities. Up and about mor e than 50% of waking hours. Physical Exam Constitutional: Appearance: He is well-developed. HENT: Head: Normocephalic and atraumatic. Nose: Nose normal. Mouth/Throat: Pharynx: No oropharyngeal exudate. Eyes: Pupils: Pupils are equal, round, and reactive to light. Neck: Musculoskeletal: Normal range of motion and neck supple. Thyroid: No thyromegaly. Trachea: No tracheal deviation. Cardiovascular: Rate and Rhythm: Normal rate and regular rhythm. Heart sounds: Normal heart sounds. No murmur. No friction rub. No gallop. Pulmonary: Effort: Pulmonary effort is normal. Breath sounds: Normal breath sounds. Abdominal: General: Bowel sounds are normal. Palpations: Abdomen is soft. There is no mass (no hepatosplenomegaly). Tenderness: There is no abdominal tenderness. Musculoskeletal: Normal range of motion. General: Tenderness (right paraspinal tenderness) present. No swelling. Lymphadenopathy: Cervical: No cervical adenopathy. Upper Body: Right upper body: No supraclavicular or epitrochlear adenopathy. Left upper body: No supraclavicular or epitrochlear adenopathy. Lower Body: No right inguinal adenopathy. No left inguinal adenopathy. Skin: General: Skin is warm and dry. Coloration: Skin is not pale. Findings: No erythema or rash. Neurological: Mental Status: He is alert and oriented to person, place, and time. Comments: 5/5 strength in all UE and LE muscle groups CBC w diff Lab Results Component Value Date/Time WBC 3.1 (L) 11/11/2019 07:12 AM RBC 3.47 (L) 11/11/2019 07:12 AM HGB 11.3 (L) 11/11/2019 07:12 AM HCT 33.0 (L) 11/11/2019 07:12 AM MCV 95.0 11/11/2019 07:12 AM MCH 32.6 11/11/2019 07:12 AM MCHC 34.3 11/11/2019 07:12 AM RDW 16.0 (H) 11/11/2019 07:12 AM PLTCT 180 11/11/2019 07:12 AM MPV 6.7 (L) 11/11/2019 07:12 AM Lab Results Component Value Date/Time NEUT 55 11/11/2019 07:12 AM ANC 1.70 (L) 11/11/2019 07:12 AM LYMA 19 (L) 11/11/2019 07:12 AM ALC 0.60 (L) 11/11/2019 07:12 AM GANESH 19 (H) 11/11/2019 07:12 AM AMC 0.60 11/11/2019 07:12 AM EOSA 6 (H) 11/11/2019 07:12 AM AEC 0.20 11/11/2019 07:12 AM BASA 1 11/11/2019 07:12 AM ABC 0.00 11/11/2019 07:12 AM Comprehensive Metabolic Profile Lab Results Component Value Date/Time NA 137 11/11/2019 07:12 AM K 4.0 11/11/2019 07:12 AM CL 102 11/11/2019 07:12 AM CO2 29 11/11/2019 07:12 AM GAP 6 11/11/2019 07:12 AM BUN 13 11/11/2019 07:12 AM CR 0.70 11/11/2019 07:12 AM GLU 125 (H) 11/11/2019 07:12 AM Lab Results Component Value Date/Time CA 9.0 11/11/2019 07:12 AM PO4 3.9 06/11/2019 05:59 AM ALBUMIN 4.1 11/11/2019 07:12 AM TOTPROT 6.4 11/11/2019 07:12 AM ALKPHOS 92 11/11/2019 07:12 AM AST 16 11/11/2019 07:12 AM ALT 13 11/11/2019 07:12 AM TOTBILI 0.4 11/11/2019 07:12 AM GFR >60 11/11/2019 07:12 AM GFRAA >60 11/11/2019 07:12 AM Assessment and Plan: 1. 59 y.o. Male who continues to followed with us for his history of diffuse lar ge B-cell lymphoma. 2. Developed rogressive back pain in September 2018 and was found to have partial compression fractures and multiple vertebral bones. 3. He had 2 bone marrow biopsies while he was on dexamethasone with inconclusive results. 4. Dexamethasone was discontinued and repeat BMBx 03/28/2019 which revealed the d iagnosis. 5. PET 04/24/2019 showed innumerable intensity FDG lesions throughout the osseous structures and multiple ribs, dorsal vertebra, sacrum and pelvic bones in additi on to the long bones. 6. Initial visit 04/24/2019 and was admitted for further work up and concern for c ord compression. 7. MRI T spine 04/24 -Diffuse abnormal marrow signal thoracic spine compatible w ith known osseous involvement by lymphoma. 8. MRI L spine 04/24 -Marked extraosseous extension of tumor at L1 which in combin ation with retropulsed fragments result in severe central spinal stenosis at the level of the conus and proximal cauda equina. 9. Patient had an urgent surgery 04/26 with T12-L2 decompression and fusion compl icated by dural leak. 10. A. Spine, "epidural tumor", T12-L2 laminectomy: Diffuse large B-cell lymphom a, germinal center type, with necrosis 11. He was started on treatment with dexamethasone 40mg for 4 days and received rituximab on 04/25. 12. Due to insurance difficulties patient and family elected to follow up as out patient for treatment. 13. He was hospitalized at [facility] from 05/14/19-05/18/19 after havi ng a syncopal event and was found to have extensive pulmonary emboli and receive d catheter directed thrombolysis with TPA, additionally had DESx2 placed. At nisha t time he was also found to be in Afib with RVR. He was discharged from [facility] on eliquis, ASA, and plavix. Previous tx HD MTX Dose 1 on 05/21/19. Rituxan 06/04/19 and 06/04/19 at local [facility] HD MTX Dose 2 06/07/19 Rituximab 06/12/2019 R-COEP s/p 6 cycles Repeat PET demonstrates several concerning lesions including one in the left debra ac bone and he has not had recent bone marrow biopsy. He also has two paraspinal lesions seen on PET around L5. I discussed this with radiology and there is no CT correlate. This is concerning for possible progression so will admit patient, get MRI Pelvi s and L spine and also plan to do biopsy of left sided iliac crest, if a lesion on MRI will try to biopsy this. We will hold additional treatment until re stagi ng has been completed. Plan: > Admit to hospital for MRI pelvis and L spine > Biopsy of left iliac lesion/bone marrow area PET avid > Hold Methotrexate > Will determine treatment based on workup Patient seen and examined with Dr. Garcia. Rasheed Ghosh, DO *[phone] ATTESTATION I have personally performed the lewis portions of the visit. I have discussed the case with the fellow and concur with the fellow documentation of history, physic al exam, assessment, and treatment plan. I have reviewed all pertinent labs and images for the patient. Will admit to the hospital for additional work up. discu ssed his care and further plan with Dr. Solo, who is the inpatient attending per sonally. Will plan for salvage DHAP and BMT referral if he has confirmed relapse . Notations made by myself are in italics. Staff name: Lyn Garcia MD Date: 11/13/2019 CONTROL ASSISTANT documented in this encounter Plan of Treatment Not on filedocumented as of this encounter Goals Goal Patient Associated Recent Progress Patient-Stat Aut hor Goal Type Problems ed? GOAL General No Carmelina Jeffrey, RN Note: Back to work GOAL General Yes Selam Kirk, RN Note: "To get better and beat this disease" documented as of this encounter Visit Diagnoses Diagnosis Diffuse large B-cell lymphoma of lymph nodes of multiple regions (HCC) documented in this encounter
--- OUTSIDE RECORDS SUMMARY | 2019-12-07 05:02 | XMS REPORT | Encounter Summary ---
Author Author [facility] Organization [facility] Address Unknown Phone Unavailable Care Team Providers Care Grinding Machine Operator Automatic Name Role Phone Bertin Cole DO PCP Madison [place] Un[place] [address] Shira Castanon MD 100 Encounter Details Care Team Description Date Type Department Lyn Garcia MD [address] [facility] [place] [address] 10/28/2019 [facility] [address] [address] Social History Date Tobacco Use Types Packs/Day [...] Status Date of Assessment Functional Status Response 06/09/2019 Does the patient have a hearing impairment: No 05/19/2019 Does the patient have a visual impairment: Yes documented as of this encounter Medications at Time of Discharge Start Date End Date Medication Sig Dispensed Refills 05/03/2019 acetaminophen (TYLENOL) Take two 30 tablet 0 325 mg tablet tablets by mouth every 6 hours as needed. Max dose of 4000 mg daily 05/03/2019 allopurinol (ZYLOPRIM) Take one 90 tablet 3 300 mg tablet tablet by mouth daily. Take with food. 05/26/2019 atorvastatin (LIPITOR) 40 Take one 90 tablet 3 mg tablet tablet by mouth daily. clopiDOGrel (PLAVIX) 75 Take 75 mg by 0 mg tablet mouth daily. cyclobenzaprine Take 10 mg by 0 (FLEXERIL) 10 mg tablet mouth three times daily as needed. gabapentin (NEURONTIN) Take 300 mg 0 300 mg capsule by mouth every 8 hours. metFORMIN (GLUCOPHAGE) Take 500 mg 0 500 mg tablet by mouth twice daily with meals. 06/11/2019 metoprolol XL (TOPROL XL) Take three 90 tablet 1 50 mg extended release tablets by tablet mouth daily. Multivitamins with Take 1 tablet 0 Fluoride (MULTI-VITAMIN by mouth PO) daily. 06/17/[address] Take one 90 tablet 1 (PROTONIX) 40 mg tablet tablet by mouth daily. 05/03/2019 senna/docusate Take one 60 tablet 0 (SENOKOT-S) 8.6/50 mg tablet by tablet mouth twice daily. 06/11/2019 spironolactone Take one 30 tablet 1 (ALDACTONE) 25 mg tablet tablet by mouth daily. Take with food. 11/25/2019 acyclovir (ZOVIRAX) 400 Take 400 mg 0 mg tablet by mouth twice daily. 06/11/2019 11/11/2019 amiodarone (CORDARONE) Take with 60 tablet 1 200 mg tablet food. 2 tabs twice a day for 5 days. On 06/16 take 2 tabs daily for 7 days. On 06/23 take 1 tab daily and continue 11/13/2019 apixaban (ELIQUIS) 5 mg Take 5 mg by 0 tablet mouth twice daily. 05/03/2019 11/25/2019 docusate (COLACE) 100 mg Take one 180 capsule 3 capsule capsule by mouth twice daily. 06/17/2019 11/11/2019 fentaNYL (DURAGESIC) 25 Apply one 10 patch 0 mcg/hr patch patch to top of skin as directed every 72 hours 06/11/2019 11/13/2019 furosemide (LASIX) 40 mg Take one 30 tablet 1 tablet tablet by mouth daily. 11/25/2019 insulin aspart U-100 Use as 0 (NOVOLOG FLEXPEN U-100 sliding scale INSULIN) 100 unit/mL (3 during chemo mL) injection PEN cycle as needed. 06/11/2019 11/11/2019 losartan (COZAAR) 25 mg Take one 30 tablet 1 tablet tablet by mouth daily. 05/03/2019 11/11/2019 melatonin 5 mg tab Take one 30 tablet 0 tablet by mouth at bedtime as needed. 05/03/2019 11/25/2019 ondansetron (ZOFRAN) 4 mg Take one 15 tablet 0 tablet tablet by mouth every 8 hours as needed for Nausea. 06/17/2019 11/13/2019 oxyCODONE (ROXICODONE, Take one 90 tablet 0 OXY-IR) 5 mg tablet tablet to two tablets by mouth every 3 hours as needed 05/03/2019 11/25/2019 polyethylene glycol 3350 Take one 12 each 0 (MIRALAX) 17 g packet by packetIndications: mouth twice constipation daily. Indications: constipation 11/25/2019 prednisone (DELTASONE) 50 Take 50 mg by 0 mg tabletIndications: 2 a mouth daily day for 5 day on chemo with weeks breakfast. Indications: 2 a day for 5 day on chemo weeks 06/17/2019 11/11/2019 traMADol (ULTRAM) 50 mg Take one 30 tablet 0 tablet tablet by mouth every 6 hours as needed for Pain. 11/12/2019 zolpidem (AMBIEN) 10 mg Take 10 mg by 0 tablet mouth at bedtime as needed for Sleep. documented as of this encounter Plan of [...] Procedure Name Priority Date/Time Associated Diag nosis T SPINE 3 VIEWS Routine 10/28/2019 Diffuse large B-cell 11:48 AM [employer] lymphoma of lymph nodes of multiple regions (HCC) L SPINE AP & LATERAL Routine 10/28/2019 Diffuse l arge B-cell 11:48 AM [employer]ER lymphoma of lymph nodes of multiple regions (HCC) documented in this encounter Results * T SPINE 3 VIEWS (10/28/2019 11:48 AM [employer]ESTER) Specimen Impressions Performed At 1. Instrumentation at [...] Interface, Radiant Results - 10/28/2019 1:30 PM [employer]ER Exam: T SPINE 3 VIEWS CLINICAL INDICATION: [...] SPINE AP & LATERAL (10/28/2019 11:48 AM [employer]ER) Specimen Impressions Performed At 1. Posterior rotation [...] Interface, Radiant Results - 10/28/2019 1:34 PM [employer]ER Exam: L SPINE AP & LATERAL CLINICAL [...] City/State/Zipcode Ph one Number [facility] RESULTS documented in this encounter Visit Diagnoses Diagnosis Diffuse large B-cell lymphoma of lymph nodes of multiple regions (HCC) documented in this encounter
--- OUTSIDE RECORDS SUMMARY | 2019-12-07 05:02 | XMS REPORT | Encounter Summary ---
Author Author [facility] Organization [facility] Address Unknown Phone Unavailable Care Team Providers Care Digital Publishing Specialist Name Role Phone Bertin Cole DO PCP Madison [place] Un[place] [id number] Shira Castanon MD 100 Reason for Referral * Radiology Services (Routine) Referred By Contact Referred To Contact Status Reason Specialty Diagnoses / Procedures Lyn Garcia MD [address] [place] [address] Nuclear [address] [place] [id number] No Auth Needed Radiology Diagnoses Diffuse large B-cell lymphoma of lymph nodes of multiple regions (HCC) P rocedures NM PET SCAN TORSO (SKULL-THIGHS) Reason for Visit * Reason Comments Cancer Encounter Details Care Team Description Date Type Department Lyn Garcia MD [address] [place] [address] [phone] Diffuse large B-cell lymphoma of lymph n odes of multiple regions (HCC) (Primary Dx) 10/28/2019 Office Visit The [address] [address] Social History Date Tobacco Use Types Packs/Day [...] Signs Reading Time Taken Comments Vital Sign 131/90 10/28/2019 10:13 AM UNDERWEAR WELTER Blood Pressure 68 10/28/2019 10:13 AM UNDERWEAR WELTER Pulse 36.4 C (97.5 F) 10/28/2019 10:13 AM UNDERWEAR WELTER Temperature 19 10/28/2019 10:13 AM UNDERWEAR WELTER Respiratory Rate 97% 10/28/2019 10:13 AM UNDERWEAR WELTER Oxygen Saturation - - Inhaled Oxygen Concentration 99.3 kg (219 lb) 10/28/2019 10:13 AM UNDERWEAR WELTER Weight - - Height 28.89 08/19/2019 9:19 AM UNDERWEAR WELTER Body Mass Index documented in this encounter Functional Status Date of Assessment Functional Status Response 06/09/2019 Does the patient have a hearing impairment: No 05/19/2019 Does the patient have a visual impairment: Yes documented as of this encounter Patient Instructions * Patient Instructions* Celeste Mayfield RN - 10/28/2019 10:00 AM UNDERWEAR WELTER Your care team: Dr. Lyn Garcia Academic Coach Jacqui Griffin APRN-HAND WRAPPER OPERATOR Hematology Nurse Practitioner Clinical Nurse Coordinators (CNC's) Celeste Mayfield RN, BSN Rosette Pandey RN, BSN Mychart: - We strongly recommend signing up for [employer], our patient access portal, and s ending us non-urgent questions/concerns through this portal. We will reply withi n one business day. - This is also a great resource to view all of your labs and scan results. - Please feel free to ask our cleaning associate upon checkout for help setting [facility]. Notify Clinic for the Following: ? [...] days or significant strain ing. Phone numbers: [phone] Jazmin Ge: [phone] Garcia's nurse line if you have non-urgent questions or co ncerns during business hours. Messages left on nurses line are checked Saturday through Saturday between the hours of 8:00 AM and 3:30 PM. Messages left after 3:30 pm will be returned the follow ing business day. Evening (after 4:00 PM), weekends, and holiday on-call: [phone] For urgent needs after hours, please ask for the oncologist on-call to be paged. For urgent needs during business hours, please ask for Celeste Dinero, Dr. Keri ordoñez's and Jacqui Griffin's nurse coordinators, to be paged. Notes: - Allow 7-10 business days for our office to complete any requested paperwork (F MLA, etc.) - Allow two to three business days for all medication refills. Please call your pharmacy first to check for available refills. RWEAR WELTER documented in this encounter Progress Notes * Lyn Garcia MD - 10/28/2019 10:00 AM UNDERWEAR WELTER Date of Service: 10/28/2019 Diagnosis: DLBCL GCB subtype: C-MYC is negative [...] for treatment. 13. He was hospitalized at [facility] from 05/14/19-05/18/19 after havi ng a syncopal event and was found to have extensive pulmonary emboli and receive d catheter directed thrombolysis with TPA, additionally had DESx2 placed. At [facility] t time he was also found to be in Afib with RVR. He was discharged from [facility] sti on eliquis, ASA, and plavix. Previous tx HD MTX Dose 1 on 05/21/19. Rituxan 06/04/19 and 06/04/19 at local [facility] HD MTX Dose 2 06/07/19 Rituximab 06/12/2019 Current treatment: R-COEP Cycle 3 08/11/19 Rituximab 375mg/m2 day 1 Cyclophosphamide 750mg/m2 day 1 Vincristine 2mg Day 1 Prednisone 100mg daily days 1-5 Etoposide 50mg/m2 days 1-3 Neulasta 6mg day 4 Interim history Patient presents today for follow up. Finished 6 cycles of chemo and last cycle was 10 days ago. Has ongoing worsening back pain for the past month since he started walking on t readmill and now is limiting his movement. Denies any radiating pain. Denies any falls and trauma. Denies urine and bowel incontinence. Denies any shortness of breath, cough and palpitations and feels that his heart is doing alright. Overall feels much better except for the back pain. Tolerating anticoagulation well. denies any recent infections. reports only side effects from chemo are fatigue and hairloss. back pain has improved, using fentanyl and oxycodone. Review of Systems Constitutional: Positive for fatigue. Negative for activity change, appetite noel nge, chills, diaphoresis, fever and unexpected weight change. HENT: Negative for nosebleeds, sneezing, sore throat, trouble swallowing and voi ce change. Eyes: Negative. Respiratory: Positive for shortness of breath (exertional). Negative for cough a nd chest tightness. Cardiovascular: Negative for chest pain, palpitations and leg swelling. Gastrointestinal: Positive for nausea. Negative for abdominal pain, diarrhea, re ctal pain and vomiting. Endocrine: Negative. Genitourinary: Negative for frequency and urgency. Musculoskeletal: Positive for back pain (worsening) and myalgias. Negative for n brigette pain. Skin: Negative. Allergic/Immunologic: Negative. Neurological: Negative for dizziness, syncope, weakness and light-headedness. Hematological: Negative for adenopathy. Does not bruise/bleed easily. Psychiatric/Behavioral: Negative for confusion and decreased concentration. Medical History: Diagnosis Date Back pain CAD [...] 06/10/2019 Performed by Terry Mustafa MD at [facility] DEVEL[facility] HX HEART CATHETERIZATION KYPHOPLASTY Family History Problem [...] Take one tablet by mouth daily. Take wi th food. amiodarone (CORDARONE) 200 mg tablet [...] at bedtime as needed for Sleep. Vitals: 10/28/19 1013 BP: 131/90 Pulse: 68 Resp: 19 Temp: 36.4 C (97.5 F) TempSrc: Oral SpO2: 97% Weight: 99.3 kg (219 lb) PainSc: Six Body mass index is 28.89 kg/m. Pain Score: Six Pain Loc: Back [...] oriented to person, place, and time. Comments: Examination of both lower extremities show 3/5 strength in right lo wer extremity and 3/5 strength in left lower extremity and he is using a walker to come to clinic. Assessment and Plan: 1. 59 y.o. Male [...] for treatment. 13. He was hospitalized at [facility] from 05/14/19-05/18/19 after havi ng a syncopal event and was found to have extensive pulmonary emboli and receive d catheter directed thrombolysis with TPA, additionally had DESx2 placed. At [facility] time he was also found to be in Afib with RVR. [facility] eliqu[facility], ASA, and plavix. Previous tx HD MTX Dose 1 on 05/21/19. Rituxan 06/04/19 and 06/04/19 at local [facility] HD MTX Dose 2 06/07/19 Rituximab 06/12/2019 Current treatment: R-COEP s/p 6 cycles Plan: 1. He is doing well clinically except for the back pain. 2. Will plan for PET scan in 2 weeks 3. If he has good systemic response overall, we will plan WAX SPECIALIST ppx with 2 doses o f IV HD MTX at the end of completion of systemic treatment. Back pain: Will obtain X rays and if no concern for malignancy, will plan for geophysical laboratory supervisor apy. Advised him to take it easy with the treadmill for now. May consider MRI pending PET scan in 2 weeks and X rays today. Follow up: 2 weeks with PET scan and labs. Will plan on admission same day for I V MTX RWEAR WELTER documented in this encounter Plan of Treatment Not on filedocumented as of this encounter Goals Goal Patient Associated Recent Progress Patient-Stat Aut hor Goal Type Problems ed? GOAL General No Carmelina Jeffrey RN Note: Back to work GOAL General Yes Selam Kirk RN Note: "To get better and beat this disease" documented as of this encounter Results * NM PET SCAN TORSO (SKULL-THIGHS) (11/11/2019 8:51 AM UNDERWEAR WELTER) Specimen Addenda Addendum by Trevor Fernández II, MD on 11/12/2019 1:25 PM Finalized by Trevor Fernández M.D. on 11/11/2019 [...] expressed in this report Narrative Performed At [place] PET SCAN TORSO (SKULL-THIGHS) [facility] RESULTS [...] purposes. Current mean hepatic SUV (reported for design quality engineer purposes) is 2.6. Blood glucose level (at [...] Interface, Radiant Results - 11/12/2019 1:25 PM UNDERWEAR WELTER NM PET SCAN TORSO (SKULL-THIGHS) Radiopharmaceutical: 12 [...] purposes. Current mean hepatic SUV (reported for design quality engineer purposes) is 2.6. Blood glucose level (at [...] expressed in this report Performing Organization Address [facility] [address] [facility] Ph one Number [facility] RESULTS * LDH-LACTATE DEHYDROGENASE (11/11/2019 7:12 AM UNDERWEAR WELTER) Lactate 184 100 - 210 U/L [facility] Dehydrogenase Specimen Blood Performing Organization Address [facility] [address] [facility] Ph one Number [facility] [address] [place] [address] * COMPREHENSIVE METABOLIC PANEL (11/11/2019 7:12 AM UNDERWEAR WELTER) Sodium 137 137 - 147 MMOL/L [facility] Potassium 4.0 3.5 - 5.1 MMOL/L [facility] Chloride 102 98 - 110 MMOL/L [facility] Glucose 125 (H) 70 - 100 MG/DL [facility] Blood Urea 13 7 - 25 MG/DL [facility] Nitrogen Creatinine 0.70 0.4 - 1.24 MG/DL [facility] Calcium 9.0 8.5 - 10.6 MG/DL [facility] Total Protein 6.4 6.0 - 8.0 G/DL [facility] Total Bilirubin 0.4 0.3 - 1.2 MG/DL [facility] Albumin 4.1 3.5 - 5.0 G/DL [facility] Alk Phosphatase 92 25 - 110 U/L [facility] AST (SGOT) 16 7 - 40 U/L [facility] CO2 29 21 - 30 MMOL/L [facility] ALT (SGPT) 13 7 - 56 U/L [facility] Anion Gap 6 3 - 12 [facility] eGFR Non >60 >60 mL/min [facility] Comment: [place] The eGFR is not validated f or use in drug dosing adjustments. Continue to use estimated creatinine clearance per dosing reference text. Please contact the Clinical Pharmacist for questions. eGFR >60 >60 mL/min [facility] [place] Comment: The eGFR is not validated for use in drug dosing adjustments. Continue to use estimated creatinine clearance per dosing reference text. Please contact the Clinical Pharmacist for questions. Specimen Blood Performing Organization Address City/State/Zipcode Ph one Number [facility] [address] [place] [address] * CBC AND DIFF (11/11/2019 7:12 AM UNDERWEAR WELTER) White Blood 3.1 (L) 4.5 - 11.0 K/UL [facility] Cells RBC 3.47 (L) 4.4 - 5.5 M/UL [facility] Hemoglobin 11.3 (L) 13.5 - 16.5 GM/DL [facility] Hematocrit 33.0 (L) 40 - 50 % [facility] MCV 95.0 80 - 100 FL [facility] MCH 32.6 26 - 34 PG [facility] MCHC 34.3 32.0 - 36.0 G/DL [facility] RDW 16.0 (H) 11 - 15 % [facility] Platelet Count 180 150 - 400 K/UL [facility] MPV 6.7 (L) 7 - 11 FL [facility] Neutrophils 55 41 - 77 % [facility] Lymphocytes 19 (L) 24 - 44 % [facility] Monocytes 19 (H) 4 - 12 % [facility] Eosinophils 6 (H) 0 - 5 % [facility] Basophils 1 0 - 2 % [facility] Absolute 1.70 (L) 1.8 - 7.0 K/UL [facility] Neutrophil Count Absolute Lymph 0.60 (L) 1.0 - 4.8 K/UL [facility] Count Absolute 0.60 0 - 0.80 K/UL [facility] Monocyte Count Absolute 0.20 0 - 0.45 K/UL [facility] Eosinophil Count Absolute 0.00 0 - 0.20 K/UL [facility] Basophil Count Specimen Blood Performing Organization Address City/State/Zipcode Ph one Number [facility] [address] [place] [address] * L SPINE AP & LATERAL (10/28/2019 11:48 AM UNDERWEAR WELTER) Specimen Impressions Performed At 1. Posterior rotation [...] Interface, Radiant Results - 10/28/2019 1:34 PM UNDERWEAR WELTER Exam: L SPINE AP & LATERAL CLINICAL [...]
--- OUTSIDE RECORDS SUMMARY | 2019-12-07 05:02 | XMS REPORT | Encounter Summary ---
Author Author [facility] Organization [facility] Address Unknown Phone Unavailable Care Team Providers Care Threshing Operator Name Role Phone Bertin Cole DO PCP Madison [place] Un[place] [address] Shira Castanon MD 100 Encounter Details Care Team Description Date Type Department Anjelica Mccray 10/28/2019 Documentation [facility] [address] [address] Social History Date Tobacco Use Types Packs/Day [...] as of this encounter Progress Notes * Anjelica Mccray - 10/28/2019 11:16 AM PERSONAL ASSISTANT Plan: [facility] Interaction: SW met with pt and his to discuss [facility] needs. Pt/ wo uld like referral to check in 11/10 with checkout 11/11. SW faxed referral to [facility]. [facility] will contact pt to secure reservation. Anjelica Mccray LMSW ONAL ASSISTANT documented in this encounter Plan of [...]
--- OUTSIDE RECORDS SUMMARY | 2019-12-07 05:02 | XMS REPORT | Encounter Summary ---
Author Author [facility] Organization [facility] Address Unknown Phone Unavailable Care Team Providers Care Rake Operator Name Role Phone Bertin Cole DO PCP Madison David [place] [address] Shira Castanon MD 100 Reason for Referral * Radiology Services (Routine) Referred By Contact Referred To Contact Status Reason Specialty Diagnoses / [place] [address] [place] [id number] Nuclear Med [address] [place] [address] No Auth Needed Radiology Diagnoses Diffuse large B-cell lymphoma of lymph nodes of multiple regions (HCC) P rocedures NM PET SCAN TORSO (SKULL-THIGHS) Reason for Visit * Auth/Cert Referred By Contact Referred To Contact Status Reason Specialty Diagnoses / Procedures Diagnoses Diffuse large B cell lymphoma (HCC) DLBCL Encounter Details Care Team Description Date [place] [address] [place] [id number] 11/11/2019 [facility] [address] [address] Social History Date Tobacco Use [...] 0 mg tablet by mouth twice daily. 11/13/2019 11/13/2019 amiodarone (CORDARONE) Take with 60 tablet 1 200 mg tablet food. 2 tabs twice a day for 5 days. On 06/16 take 2 tabs daily for 7 days. On 06/23 take 1 tab daily and continue 11/15/2019 11/28/2019 apixaban (ELIQUIS) 5 mg Take one 60 tablet 0 tablet tablet by mouth twice daily. Start on Saturday11/15/2019 11/13/2019 apixaban (ELIQUIS) 5 mg Take 5 mg by 0 tablet mouth twice daily. 05/03/2019 11/25/2019 docusate (COLACE) 100 mg Take one 180 capsule 3 capsule capsule by mouth twice daily. 11/13/2019 11/13/2019 fentaNYL (DURAGESIC) 75 Apply one 3 patch 0 mcg/hr patch patch to top of skin as directed every 72 hours 11/13/2019 fentaNYL (DURAGESIC) 75 Apply 1 patch 0 mcg/hr patch to top of skin as directed every 72 hours 11/13/2019 11/13/2019 furosemide (LASIX) 20 mg Take one 90 tablet 0 tablet tablet by mouth every morning. 06/11/2019 11/13/2019 furosemide (LASIX) 40 mg Take [...] 8 hours as needed for Nausea. 11/13/2019 11/13/2019 oxyCODONE (ROXICODONE) 5 Take one 20 tablet 0 mg tablet tablet to two tablets by mouth every 3 hours as needed 06/17/2019 11/13/2019 oxyCODONE (ROXICODONE, Take one 90 [...] day for 5 day on chemo weeks 11/12/2019 zolpidem (AMBIEN) 10 mg Take 10 [...] Procedure Name Priority Date/Time Associated Diag nosis NM PET SCAN TORSO Routine 11/11/2019 Diffuse larg e B-cell (SKULL-THIGHS) 8:51 AM ORACLE EBS CONSULTANT lymphoma of lymph n odes of multiple regions (HCC) HC CBC W/ AUTOMATED DIFF Routine 11/11/2019 Diffu se large B-cell 7:12 AM ORACLE EBS CONSULTANT lymphoma of lymph nodes of multiple regions (HCC) HC LDH Routine 11/11/2019 Diffuse large B -cell 7:12 AM ORACLE EBS CONSULTANT lymphoma of lymph nodes of multiple regions (HCC) HC COMPREHENSIVE Routine 11/11/2019 Diffuse large B-cell METABOLIC PANEL 7:12 AM ORACLE EBS CONSULTANT lymphoma of lymph n odes of multiple regions (HCC) POC GLUCOSE 11/11/2019 7:02 AM ORACLE EBS CONSULTANT documented in this encounter Results * IN PET SCAN TORSO (SKULL-THIGHS) (11/11/2019 8:51 AM ORACLE EBS CONSULTANT) Specimen Addenda Addendum by Trevor Fernández II, MD on 11/12/2019 1:25 PM Finalized by Trevor Fenrández M.D. on 11/11/2019 10:34 AM. Dictated by [...] expressed in this report Narrative Performed At [place] PET SCAN TORSO (SKULL-THIGHS) [facility] RESULTS [...] purposes. Current mean hepatic SUV (reported for manufacturing quality inspector purposes) is 2.6. Blood glucose level (at [...] Interface, Radiant Results - 11/12/2019 1:25 PM ORACLE EBS CONSULTANT NM PET SCAN TORSO (SKULL-THIGHS) Radiopharmaceutical: 12 [...] purposes. Current mean hepatic SUV (reported for manufacturing quality inspector purposes) is 2.6. Blood glucose level (at [...] expressed in this report Performing Organization Address City/State/Zipcode Ph one Number [facility] RESULTS * LDH-LACTATE DEHYDROGENASE (11/11/2019 7:12 AM ORACLE EBS CONSULTANT) Pathologist [facility] Lactate 184 100 - 210 U/L [facility] Dehydrogenase Specimen Blood Performing Organization Address [facility] one Number [facility] [address] [place] [address] * COMPREHENSIVE METABOLIC PANEL (11/11/2019 7:12 AM ORACLE EBS CONSULTANT) [facility] Sodium 137 137 - 147 MMOL/L [facility] Potassium 4.0 3.5 - 5.1 MMOL/L [facility] Chloride 102 98 - 110 MMOL/L [facility] Glucose 125 (H) 70 - 100 MG/DL [facility] Blood Urea 13 7 - 25 MG/DL [facility] Nitrogen Creatinine 0.70 0.4 - 1.24 MG/DL [facility] Calcium 9.0 8.5 - 10.6 MG/DL [facility] Total Protein 6.4 6.0 - 8.0 G/DL [facility] Total Bilirubin 0.4 0.3 - 1.2 MG/DL [facility] Albumin 4.1 3.5 - 5.0 G/DL [facility] Alk Phosphatase 92 25 - 110 U/L [facility] AST (SGOT) 16 7 - 40 U/L [facility] CO2 29 21 - 30 MMOL/L [facility] ALT (SGPT) 13 7 - 56 U/L [facility] Anion Gap 6 3 - 12 [facility] eGFR Non >60 >60 mL/min [facility] Comment: [place] The eGFR is not validated f or use in drug dosing adjustments. Continue to use estimated creatinine clearance per dosing reference text. Please contact the Clinical Pharmacist for questions. eGFR >60 >60 mL/min [facility] [place] Comment: The eGFR is not validated for use in drug dosing adjustments. Continue to use estimated creatinine clearance per dosing reference text. Please contact the Clinical Pharmacist for questions. Specimen Blood Performing Organization Address [facility] one Number [facility] [address] [place] [address] * CBC AND DIFF (11/11/2019 7:12 AM ORACLE EBS CONSULTANT) Pathologist [facility] White Blood 3.1 (L) 4.5 - 11.0 K/UL [facility] Cells RBC 3.47 (L) 4.4 - [...] Basophil Count Specimen Blood Performing Organization Address City/State/[facility] Ph one Number [facility] [address] [place] [address] * POC GLUCOSE (11/11/2019 7:02 AM ORACLE EBS CONSULTANT) [facility] Signature Glucose, POC 126 (H) 70 - 100 MG/DL [facility] Specimen Performing Organization Address City/[facility] Ph one Number [facility] [address] [place] [address] documented in this encounter Visit Diagnoses Diagnosis Diffuse large B-cell lymphoma of lymph nodes of multiple regions (HCC) documented in this encounter Administered Medications Action Date Dose Rate Site Medication Order MAR Action 11/11/2019 7:17 AM ORACLE EBS CONSULTANT 8.5 millicuries RP DX F-18 FDG injection 10 millicurie Given 10 millicurie, Intravenous, ONCE, 1 dose, 11/11/19 at 0715 documented in this encounter
--- OUTSIDE RECORDS SUMMARY | 2019-12-07 05:02 | XMS REPORT | Encounter Summary ---
Author Author [facility] Organization [facility] Address Unknown Phone Unavailable Care Team Providers Care Communication Technician Name Role Phone Bertin Cole DO PCP [place] David [place] Un[place] [address] Shira Castanon MD 100 Encounter Details Care Team Description Date Type Department Lyn Garcia MD [address] [place] [address] [phone] Diffuse large B-cell lymphoma of lymph n odes of multiple regions (HCC); B-cell lymphoma, unspecified B-cell lymphoma type, unspecified body region (HCC); Hodgkin lymphoma, unspecified Hodgkin lymphoma type, unspecified body region (HCC) 08/19/2019 Nurse Only The [address] [phone] Social History Date Tobacco Use Types Packs/Day [...] Note: Back to work GOAL General Yes eSlam Kirk, RN Note: "To get better and beat this disease" documented as of this encounter Procedures Comments Procedure Name Priority Date/Time Associated Diag nosis HC CBC W/ AUTOMATED DIFF Routine 08/19/2019 B-karl l lymphoma, 8:35 AM COSTING ANALYST unspecified B-cell lymphoma type, unspecified body region (HCC) Hodgkin lymphoma, unspecified Hodgkin lymphoma type, unspecified body region (HCC) HC URIC ACID Routine 08/19/2019 Diffuse large B -cell 8:35 AM COSTING ANALYST lymphoma of lymph nodes of multiple regions (HCC) HC LDH Routine 08/19/2019 Diffuse large B -cell 8:35 AM COSTING ANALYST lymphoma of lymph nodes of multiple regions (HCC) HC COMPREHENSIVE Routine 08/19/2019 Diffuse large B-cell METABOLIC PANEL 8:35 AM COSTING ANALYST lymphoma of lymph n odes of multiple regions (HCC) documented in this encounter Results * URIC ACID (08/19/2019 8:35 AM COSTING ANALYST) Uric Acid 5.0 4.0 - 8.0 MG/DL [facility] Specimen Blood Performing Organization Address City/State[facility] one Number [facility] [address] [place] [address] * COMPREHENSIVE METABOLIC PANEL (08/19/2019 8:35 AM COSTING ANALYST) Sodium 137 137 - 147 MMOL/L [facility] Potassium 3.8 3.5 - 5.1 MMOL/L [facility] Chloride 102 98 - 110 MMOL/L [facility] Glucose 186 (H) 70 - 100 MG/DL [facility] Blood Urea 11 7 - 25 MG/DL [facility] Nitrogen Creatinine 0.62 0.4 - 1.24 MG/DL [facility] Calcium 8.6 8.5 - 10.6 MG/DL [facility] Total Protein 6.0 6.0 - 8.0 G/DL [facility] Total Bilirubin 0.4 0.3 - 1.2 MG/DL [facility] Albumin 3.9 3.5 - 5.0 G/DL [facility] Alk Phosphatase 103 25 - 110 U/L [facility] AST (SGOT) 22 7 - 40 U/L [facility] CO2 27 21 - 30 MMOL/L [facility] ALT (SGPT) 21 7 - 56 U/L [facility] Anion Gap 8 3 - 12 [facility] eGFR Non >60 >60 mL/min [facility] Comment: [place] The eGFR is not validated f or use in drug dosing adjustments. Continue to use estimated creatinine clearance per dosing reference text. Please contact the Clinical Pharmacist for questions. eGFR >60 >60 mL/min [facility] [place] Comment: The eGFR is not validated for use in drug dosing adjustments. Continue to use estimated creatinine clearance per dosing reference text. Please contact the Clinical Pharmacist for questions. Specimen Blood Performing Organization Address City/State/Zipcode Ph one Number [facility] [address] [place] [address] * CBC AND DIFF (08/19/2019 8:35 AM COSTING ANALYST) White Blood 5.0 4.5 - 11.0 K/UL [facility] Cells RBC 3.65 (L) 4.4 - 5.5 M/UL [facility] Hemoglobin 11.4 (L) 13.5 - 16.5 GM/DL [facility] Hematocrit 35.5 (L) 40 - 50 % [facility] MCV 97.3 80 - 100 FL [facility] MCH 31.2 26 - 34 PG [facility] MCHC 32.0 32.0 - 36.0 G/DL [facility] RDW 19.4 (H) 11 - 15 % [facility] Platelet Count 121 (L) 150 - 400 K/UL [facility] MPV 7.9 7 - 11 FL [facility] Segmented 40 (L) 41 - 77 % [facility] Neutrophils Bands 8 0 - 10 % [facility] Lymphocytes 14 (L) 24 - 44 % [facility] Monocytes 23 (H) 4 - 12 % [facility] Eosinophil 7 (H) 0 - 5 % [facility] Basophil 3 (H) 0 - 2 % [facility] Atypical Lym 1 % [facility] Myelocyte 3 % [facility] Promyelocyte 1 % [facility] ANISO PRESENT [facility] POIK PRESENT [facility] POLY PRESENT [facility] Ovalocyte PRESENT [facility] Teardrop PRESENT [facility] Platelet SLT DEC [facility] Estimate Absolute 2.40 1.8 - 7.0 K/UL [facility] Neutrophil Count Manual Specimen Blood Performing Organization Address [facility] one Number [facility] [address] [place] [address] * LDH-LACTATE DEHYDROGENASE (08/19/2019 8:35 AM COSTING ANALYST) Lactate 350 (H) 100 - 210 U/L [facility] Dehydrogenase Specimen Blood Performing Organization Address [facility] Ph one Number [facility] [address] [place] [address] documented in this encounter Visit Diagnoses Diagnosis Diffuse large B-cell lymphoma of lymph nodes of multiple regions (HCC) B-cell lymphoma, unspecified B-cell lym phoma type, unspecified body region (HCC) Hodgkin lymphoma, unspecified Hodgkin l ymphoma type, unspecified body region (HCC) documented in this encounter
--- OUTSIDE RECORDS SUMMARY | 2019-12-07 05:02 | XMS REPORT | Encounter Summary ---
Author Author [facility] Organization [facility] Address Unknown Phone Unavailable Care Team Providers Care Computer Specialist Name Role Phone Bertin Cole DO PCP [place] David [place] Un[place] [address] Shira Castanon MD 100 Reason for Visit * Reason Comments Imaging Encounter Details Care Team Description Date Type Department Lyn Garcia MD [address] [place] [address] [phone] Imaging 10/28/[address] Tele[address] [phone] Social History Date Tobacco Use Types Packs/Day [...] encounter Miscellaneous Notes * Telephone Encounter - Celeste Mayfield RN - 10/28/2019 4:53 PM AWNING SPREADER Call placed to pt and spouse to review spinal xray results. Dr. Garcia rep orts xray does not show any new areas of concern. Dr. Garcia recommends pt continue with plan for PET scan and return visit in 2 weeks. Pt and spouse v/u. Notes and xray report will be sent to Dr. Carter. Pt is scheduled to see Dr. Carter on 11/02. NG SPREADER documented in this encounter Plan of Treatment Not on filedocumented as of this encounter Goals Goal Patient Associated Recent Progress Patient-Stat Aut hor Goal Type Problems ed? GOAL General No Carmelina Jefrfey, RN Note: Back to work GOAL General Yes Selam Kirk, RN Note: "To get better and beat this disease" documented as of this encounter Visit Diagnoses Not on filedocumented in this encounter
--- OUTSIDE RECORDS SUMMARY | 2019-12-07 05:02 | XMS REPORT | Encounter Summary ---
Author Author [facility] Organization [facility] Address Unknown Phone Unavailable Care Team Providers Care Pattern Cleaner Name Role Phone Bertin Cole DO PCP [place] David [place] Un[place] [address] Shira Castanon MD 100 Encounter Details Care Team Description Date Type Department 08/25/2019 Hospital [facility] [address] [address] Social History Date Tobacco Use Types Packs/Day [...] Name Priority Date/Time Associated Diag nosis NM PET/CT EXTERNAL Routine 08/25/2019 IMAGING 12:00 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 documented in this encounter Visit Diagnoses Not on filedocumented in this encounter
--- OUTSIDE RECORDS SUMMARY | 2019-12-07 05:03 | XMS REPORT | Encounter Summary ---
Author Author [facility] Organization [facility] Address Unknown Phone Unavailable Care Team Providers Care Bridge Builder Name Role Phone Bertin Cole DO PCP [place] Un[place] [address] Sihra Castanon MD 100 Encounter Details Care Team Description Date Type Department Enoch Pandey MD [address] [facility] [place] [address] S/P spinal fusion (Primary Dx) 08/10/2019 Orders Only The [facility] [address] [address] Social History Date Tobacco Use Types Packs/Day [...] documented as of this encounter Results * SCOLIOSIS EOS AP/LAT (08/18/2019 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 Orthopedic hardware is intact without evidence of complication s. Moderate to marked degenerative disease at C3-C4, C4-5 and C5-C6. Mild multilevel degenerative disc disease th roughout the thoracic spine. Chronic appearing mild anterior wedge deformiti es of T7 and T11 vertebral bodies. Mild diffuse bone demineralization. Rounded opacity in the lower lung likel y subsegmental/discoid atelectasis. Correlate clinically to exclude infecti on. Finalized by DARLIN JACK on 08/18/2019 9:49 AM. Dictated by DARLIN JACK on 08/18/2019 9:46 AM. Narrative Performed At Scoliosis survey [facility] COMPARISON: Scoliosis survey from 2018 INDICATION: Status post spinal fusion Procedure Note Interface, Radiant Results - 08/18/2019 9:52 AM FARM LABOR CONTRACTOR Scoliosis survey COMPARISON: Scoliosis survey from May 19, 2019 INDICATION: Status post spinal fusion IMPRESSION Redemonstration of compression fracture and cement augmentation of L1 vertebral body with posterior spinal instrumentation at T12 and L2. Orthopedic hardware is intact without evidence of complications. Moderate to marked degenerative disease at C3-C4, C4-5 and C5-C6. Mild multilevel degenerative disc disease throughout the thoracic spine. Chronic appearing mild anterior wedge deformities of T7 and T11 vertebral bodies. Mild diffuse bone demineralization. Rounded opacity in the lower lung likely subsegmental/discoid atelectasis. Correlate clinically to exclude infection. Finalized by DARLIN JACK on 08/18/2019 9:49 AM. Dictated by DARLIN JACK on 08/18/2019 9:46 AM. Performing Organization Address City/State/Zipcode Ph one Number [facility] documented in this encounter Visit Diagnoses Diagnosis S/P spinal fusion Arthrodesis status documented in this encounter
--- OUTSIDE RECORDS SUMMARY | 2019-12-07 05:03 | XMS REPORT | Encounter Summary ---
Author Author [facility] Address Unknown Phone Unavailable Care Team Providers Care Fire Coordinator Name Role Phone Bertin Cole DO PCP [place] David [place] [address] Reason for Referral * Radiology Services (Routine) Referred By Contact Referred To Contact Status Reason Specialty Diagnoses / Procedures Jacqui Griffin APRN-FUNERAL WORKERS [address] [place] [address] [address] [place] [address] Closed Radiology Diagnoses Diffuse large B-cell lymphoma of extranodal site excluding spleen and other solid organs (HCC) P rocedures NM PET SCAN WHOLEBODY (HEAD-TOES) NM PET SCAN TORSO (SKULL-THIGHS) Reason for Visit * Radiology Services (Routine) Referred By Contact Referred To Contact Status Reason Specialty Diagnoses / Procedures Jacqui Griffin APRN-FUNERAL WORKERS [address] [place] [address] [address] [place] [address] Closed Radiology Diagnoses Diffuse large B-cell lymphoma of extranodal site excluding spleen and other solid organs (HCC) P rocedures NM PET SCAN WHOLEBODY (HEAD-TOES) NM PET SCAN TORSO (SKULL-THIGHS) Encounter Details Care Team Description Date Type Department Jacqui Griffin, DISHCLOTH FOLDER-FUNERAL WORKERS [address] [facility] [place] [address] [phone] 06/16/2019 [facility] Encounter Health System [address] [facility] [address] [place] [address] [place] [address] Social History Date Tobacco Use Types Packs/Day [...] 0 Fluoride (MULTI-VITAMIN by mouth PO) daily. 05/03/2019 senna/docusate Take one 60 tablet 0 (SENOKOT-S) 8.6/50 mg tablet by tablet mouth twice daily. 06/11/2019 spironolactone Take one 30 tablet 1 (ALDACTONE) 25 mg tablet tablet by mouth daily. Take with food. 06/11/2019 11/11/2019 amiodarone (CORDARONE) Take with 60 [...] 3 capsule capsule by mouth twice daily. 05/05/2019 06/17/2019 fentaNYL (DURAGESIC) 25 Apply one 10 patch 0 mcg/hr patch patch to top of skin as directed every 72 hours 06/11/2019 11/13/2019 furosemide (LASIX) 40 mg Take one 30 tablet 1 tablet tablet by mouth daily. 06/11/2019 11/11/2019 losartan (COZAAR) 25 mg Take one 30 tablet 1 tablet tablet by mouth daily. 05/03/2019 11/11/2019 melatonin 5 mg tab Take one 30 tablet 0 tablet by mouth at bedtime as needed. 05/03/2019 11/25/2019 ondansetron (ZOFRAN) 4 mg Take one 15 tablet 0 tablet tablet by mouth every 8 hours as needed for Nausea. 05/03/2019 06/17/2019 oxyCODONE (ROXICODONE, Take one 90 tablet 0 OXY-IR) 5 mg tablet tablet to two tablets by mouth every 3 hours as needed 06/17/[address] Take 40 mg by 0 (PROTONIX) 40 mg tablet mouth daily. 05/03/2019 11/25/2019 polyethylene glycol 3350 Take one 12 each 0 (MIRALAX) 17 g packet by packetIndications: mouth twice constipation daily. Indications: constipation 06/17/2019 traMADol (ULTRAM) 50 mg Take 50 mg by 0 tablet mouth every 6 hours as needed for Pain. 06/11/2019 06/17/2019 trimethoprim/sulfamethoxa Take one 12 tablet 0 zole (BACTRIM DS) 160/800 tablet by mg tablet mouth twice daily for 6 days. 11/12/2019 zolpidem (AMBIEN) 10 mg Take 10 [...] Date/Time Associated Diag nosis NM PET SCAN WHOLEBODY Routine 06/16/2019 Diffuse large B-cell (HEAD-TOES) 2:05 PM CDT lymphoma of extrano nesha site excluding spleen and other solid organs (HCC) POC GLUCOSE 06/16/2019 12:08 PM CDT documented in this encounter Results * NM PET SCAN WHOLEBODY (HEAD-TOES) (06/16/2019 2:05 PM CDT) Specimen Addenda Addendum by Yanick Montano MD on 06/17/2019 5:13 PM Finalized by Yanick Montano M.D. on 06/16/2019 5:06 PM. Dictated by Liang Lo MD on 06/16/2019 3:11 PM.Addendum: Technique should read: NM PET SCAN WHOLE BODY (HEAD-TOES) Technique: PET imaging was performed from the vertex to the toes 72 minutes after tracer administration. Low dose non-contrast CT imaging was performed for attenuation correction and localization purposes. Current mean hepatic SUV (reported for quality compliance coordinator purposes) is 2.5, max SUV of 4.1. Mean blood pool SUV of 2.0 with max SUV of 2.7. Approved by Liang Lo MD on 06/17/2019 1:17 PM By my electronic signature, I attest that I have personally reviewed the images for this examination and formulated the interpretations and opinions expressed in this report Finalized by Yanick Montano M.D. on 06/17/2019 5:10 PM. Dictated by Liang Lo MD on 06/17/2019 1:13 PM. Impressions Performed At 1. Significant decrease in FDG uptake of hypermetabolic mesenteric lymph node [facility] which remains slightly greater than blo od flow. No new hypermetabolic lymph notes. 2. Significant decrease in FDG uptake of persistent hypermetabolic lymphomatous involvement throughout the osseous structures. 3. Resolution of hypermetabolic pleur al-based nodule with development of focal hypermetabolic pulmonary opacity adjace nt to the descending thoracic aorta with mild increased uptake which likely repr esents focal pneumonitis. 5PS = 5 Approved by Liang Lo MD on 06/16 4:27 PM By my electronic signature, I attest th at I have personally reviewed the images for this examination and formulated the interpretations and opinions expressed in this report Narrative Performed At [facility] PET SCAN TORSO (SKULL-THIGHS) [facility] Radiopharmaceutical: 12 mCi F-18 Fluoro deoxyglucose (FDG) IV. Clinical Indication: 59-year-old male. Diffuse large B-cell lymphoma restaging after 2 cycles of chemotherapy Technique: PET imaging was performed fr om the skull to thighs 72 minutes after tracer administration. Low dose non-con trast CT imaging was performed for attenuation correction and localization purposes. Current mean hepatic SUV (reported for quality compliance coordinator purposes) is 2.5, max SUV of 4.1. Mean blood pool SUV of 2.0 with max SUV of 2.7. Blood glucose level (at the time of rad iopharmaceutical administration): 113 mg/dL Comparison: PET scan April 24, 2019. FINDINGS: Lymph Nodes: Decreased size and FDG upt sharda of previously described mesenteric lymph node which demonstrates maximum S UV of 2.1 (index 667), previously 20. No new hypermetabolic lymph node identifie d. Spleen: Unremarkable. Marrow: Significant improvement in diff use osseous involvement by lymphoma throughout the axial and appendicular s [place] with medical office representative left sacral lesion demonstrating maximum SUV of 16. 5 (index 787), previously 21.8. Other/Extranodal: Decreased size and FD G uptake of previously described mesenteric lymph node which demonstrate s maximum SUV of 2.1 (index 667), previously 20. No new hypermetabolic ly mph node identified. Resolution of previously described pleural-based nodu le. Development of hypermetabolic opacity adjacent to the descending thoracic aor ta demonstrating maximum SUV of 6.2 (index 382). Additional CT Findings: Left PICC in pl bettie with tip terminating in the upper SVC. Small retention cyst or polyp with in the left maxillary sinus. Mild ectasia of the ascending thoracic aorta. Severe coronary artery calcifications. Mild scattered calcified atherosclerosis. Mi ld distal colonic diverticulosis. Previous vasectomy. Procedure Note Interface, Radiant Results - 06/17/2019 5:13 PM CDT NM PET SCAN TORSO (SKULL-THIGHS) Radiopharmaceutical: 12 mCi F-18 Fluorodeoxyglucose (FDG) IV. Clinical Indication: 59-year-old male. Diffuse large B-cell lymphoma restaging after 2 cycles of chemotherapy Technique: PET imaging was performed from the skull to thighs 72 minutes after tracer administration. Low dose non-contrast CT imaging was performed for attenuation correction and localization purposes. Current mean hepatic SUV (reported for quality compliance coordinator purposes) is 2.5, max SUV of 4.1. Mean blood pool SUV of 2.0 with max SUV of 2.7. Blood glucose level (at the time of radiopharmaceutical administration): 113 mg/dL Comparison: PET scan April 24, 2019. FINDINGS: Lymph Nodes: Decreased size and FDG uptake of previously described mesenteric lymph node which demonstrates maximum SUV of 2.1 (index 667), previously 20. No new hypermetabolic lymph node identified. Spleen: Unremarkable. Marrow: Significant improvement in diffuse osseous involvement by lymphoma throughout the axial and appendicular skeleton with medical office representative left sacral lesion demonstrating maximum SUV of 16.5 (index 787), previously 21.8. Other/Extranodal: Decreased size and FDG uptake of previously described mesenteric lymph node which demonstrates maximum SUV of 2.1 (index 667), previously 20. No new hypermetabolic lymph node identified. Resolution of previously described pleural-based nodule. Development of hypermetabolic opacity adjacent to the descending thoracic aorta demonstrating maximum SUV of 6.2 (index 382). Additional CT Findings: Left PICC in place with tip terminating in the upper SVC. Small retention cyst or polyp within the left maxillary sinus. Mild ectasia of the ascending thoracic aorta. Severe coronary artery calcifications. Mild scattered calcified atherosclerosis. Mild distal colonic diverticulosis. Previous vasectomy. IMPRESSION 1. Significant decrease in FDG uptake o f hypermetabolic mesenteric lymph node which remains slightly greater than blood flow. No new hypermetabolic lymph notes. 2. Significant decrease in FDG uptake o f persistent hypermetabolic lymphomatous involvement throughout the osseous structures. 3. Resolution of hypermetabolic pleural -based nodule with development of focal hypermetabolic pulmonary opacity adjacent to the descending thoracic aorta with mild increased uptake which likely represents focal pneumonitis. 5PS = 5 Approved by Liang Lo MD on 06/16/2019 4:27 PM By my electronic signature, I attest that I have personally reviewed the images for this examination and formulated the interpretations and opinions expressed in this report Performing Organization Address City/State/[facility] Ph one Number [facility] * POC GLUCOSE (06/16/2019 12:08 PM CDT) Glucose, POC 113 (H) 70 - 100 MG/DL [facility] Specimen Performing Organization Address City/[facility] Ph one Number [facility] [address] [place] [address] documented in this encounter Visit Diagnoses Diagnosis Diffuse large B-cell lymphoma of extran odal site excluding spleen and other solid organs (HCC) documented in this encounter Administered Medications Action Date Dose Rate Site Medication Order MAR Action 06/16/2019 12:19 PM CDT 12 millicuries RP DX F-18 FDG injection 10 millicurie Given 10 millicurie, Intravenous, ONCE, 1 dose, 06/16/19 at 1230 documented in this encounter
--- OUTSIDE RECORDS SUMMARY | 2019-12-07 05:03 | XMS REPORT | Encounter Summary ---
Author Author [facility] Organization [facility] Address Unknown Phone Unavailable Care Team Providers Care Manager Special Events Name Role Phone Bertin Cole DO PCP [place] David [place] [address] Reason for Visit * Reason Comments Medication Refill Encounter Details Care Team Description Date Type Department Lyn Garcia MD [address] [place] [address] [phone] 06/17/2019 Refill The [facility] [address] [place] [phone] Social History Date Tobacco Use Types Packs/Day [...]
--- OUTSIDE RECORDS SUMMARY | 2019-12-07 05:03 | XMS REPORT | Encounter Summary ---
Author Author [facility] Organization [facility] Address Unknown Phone Unavailable Care Team Providers Care Carton Repairer Name Role Phone Bertin Cole DO PCP Madison [place] Un[place] [phone] Shira Castanon MD 100 Reason for Visit * Reason Comments Follow Up Encounter Details Care Team Description [place] [address] [place] [address] [phone] Diffuse large B-cell lymphoma, unspecifi ed body region (HCC) (Primary Dx) 08/19/2019 Office Visit [facility] [address] [phone] Social History Date Tobacco Use Types Packs/Day [...] Signs Reading Time Taken Comments Vital Sign 109/66 08/19/2019 9:19 AM SWEATBAND DRUMMER Blood Pressure 81 08/19/2019 9:19 AM SWEATBAND DRUMMER Pulse 36.6 C (97.9 F) 08/19/2019 9:19 AM SWEATBAND DRUMMER Temperature - - Respiratory Rate 96% 08/19/2019 9:19 AM SWEATBAND DRUMMER Oxygen Saturation - - Inhaled Oxygen Concentration 96.4 kg (212 lb 9.6 oz) 08/19/2019 9:19 AM SWEATBAND DRUMMER Weight 185.4 cm (6' 1") 08/19/2019 9:19 AM SWEATBAND DRUMMER Height 28.05 08/19/2019 9:19 AM SWEATBAND DRUMMER Body Mass Index documented in this encounter Functional Status Date of Assessment Functional Status Response 06/09/2019 Does the patient have a hearing impairment: No 05/19/2019 Does the patient have a visual impairment: Yes documented as of this encounter Patient Instructions * Patient Instructions* Rosette Pandey RN - 08/19/2019 10:00 AM SWEATBAND DRUMMER Your care team: Dr. Lyn Garcia Unhairing Machine Operator Jacqui Griffin APRN-AIRLINE CUSTOMER SERVICE AGENT Hematology Nurse Practitioner Clinical Nurse Coordinators (CNC's) Celeste Mayfield, RN, BSN Rosette Pandey, RN, BSN Mychart: - We strongly recommend signing up for [employer], our patient access portal, and s ending us non-urgent questions/concerns through this portal. We will reply withi n one business day. - This is also a great resource to view all of your labs and scan results. - Please feel free to ask our director of optimization upon checkout for help setting up your ychart access. Notify Clinic for the Following: ? Fevers at or greater than 100.5 degrees (do not take Tylenol until you have sp oken to a provider ? Persistent or uncontrolled vomiting ? Persistent or uncontrolled diarrhea (more than 6 watery stools per day) or sig ns of blood in stools ? Progressive cough with increased sputum (phlegm or mucus) production accompani ed by increased shortness of breath ? Recurrent nosebleeds or nosebleeds that lasts longer than 30 minutes. ? Severe mouth sores ? Severe constipation without a bowel movement in 4-5 days or significant strain ing. Phone numbers: [phone] Jazmin Ge: [phone] Garcia's nurse line if you have non-urgent questions or co ncerns during business hours. Messages left on nurses line are checked Saturday through Saturday between the hours of 8:00 AM and 4:00 PM. Messages left after 4:00 pm will be returned the follow ing business day. Evening (after 4:00 PM), weekends, and holiday on-call: [phone] For urgent needs after hours, please ask [...] pharmacy first to check for available refills. TBAND DRUMMER documented in this encounter Progress Notes * Lyn Garcia MD - 08/19/2019 10:00 AM SWEATBAND DRUMMER Date of Service: 08/19/2019 Diagnosis: DLBCL GCB subtype: C-MYC is negative [...] for treatment. 13. He was hospitalized at [facility] from 05/14/19-05/18/19 after havi ng a syncopal event and was found to have extensive pulmonary emboli and receive d catheter directed thrombolysis with TPA, additionally had DESx2 placed. At nisha t time he was also found to be in Afib with RVR. He was discharged from [facility] sti on eliquis, ASA, and plavix. Previous tx HD MTX Dose 1 on 05/21/19. Rituxan 06/04/19 and 06/04/19 at local [facility] HD MTX Dose 2 06/07/19 Rituximab 06/12/2019 Current treatment: R-COEP Cycle 3 08/11/19 Rituximab 375mg/m2 day 1 Cyclophosphamide 750mg/m2 day 1 Vincristine 2mg Day 1 Prednisone 100mg daily days 1-5 Etoposide 50mg/m2 days 1-3 Neulasta 6mg day 4 Interim history Patient presents today for follow up. He is doing well, got third cycle of chemotherapy last week. Denies any shortness of breath, cough and palpitations and feels that his heart is doing alright. Tolerating anticoagulation well. denies any recent infections. reports only side effects from chemo are fatigue and hairloss. back pain has improved, using fentanyl and oxycodone. Review of Systems Constitutional: Positive for activity change, appetite change, chills, diaphores is and fatigue. Negative for fever and unexpected weight change. HENT: Positive for sneezing, sore throat, trouble swallowing and voice change. N egative for nosebleeds. Eyes: Negative. Respiratory: Positive for chest tightness and shortness of breath. Negative for cough. Cardiovascular: Negative for chest pain, palpitations and leg swelling. Gastrointestinal: Positive for nausea and rectal pain. Negative for abdominal pa in, diarrhea and vomiting. Endocrine: Negative. Genitourinary: Negative for frequency and urgency. Musculoskeletal: Positive for back pain and myalgias. Negative for neck pain. Skin: Negative. Allergic/Immunologic: Negative. Neurological: Negative for dizziness, syncope, weakness and light-headedness. Hematological: Negative for adenopathy. Does not bruise/bleed easily. Psychiatric/Behavioral: Positive for confusion and decreased concentration. Medical History: [...] 06/10/2019 Performed by Terry Mustafa MD at PASTRY CHEF HX HEART CATHETERIZATION KYPHOPLASTY Family History Problem Relation Age of Onset Cancer-Lung Mother Cancer-Pancreas Father Social History Socioeconomic History Marital status: Spouse name: Not on file Number of children: Not on file Years of education: Not on file Highest education level: Not on file Occupational History Not on file Tobacco Use Smoking status: Former Smoker Last attempt to quit: 07/26/2015 Years since quittin.0 Smokeless tobacco: Never Used Substance and Sexual [...] one tablet by mouth daily. Take food. amiodarone (CORDARONE) 200 mg tablet Take [...] patch to top of skin as direc igncaio every 72 hours (Patient taking differently: Apply [...] at bedtime as needed for Sleep. Vitals: 08/19/19 0919 BP: 109/66 Pulse: 81 Temp: 36.6 C (97.9 F) TempSrc: Oral SpO2: 96% Weight: 96.4 kg (212 lb 9.6 oz) Height: 185.4 cm (73") Body mass index is 28.05 kg/m. Pain Score: Six Pain Loc: Back Pain Addressed: Current regimen working to control pain. Patient Evaluated for a Clinical Trial: Patient not eligible for a treatment tri al (including not needing treatment, needs palliative care, in remission). Eastern Cooperative Oncology Group performance status is 3, Capable of only limi ignacio selfcare, confined to bed or chair more than 50% of waking hours. Physical Exam Constitutional: He is oriented to person, place, and time. He appears well-devel oped and well-nourished. Patient is in wheelchair needs significant assistance to move. HENT: Head: Normocephalic and atraumatic. Nose: Nose normal. Mouth/Throat: Oropharynx is clear and moist. No oropharyngeal exudate. Eyes: Pupils are equal, round, and reactive to light. EOM are normal. Neck: Normal range of motion. Neck supple. No tracheal deviation present. No thy romegaly present. Cardiovascular: Normal rate, regular rhythm, normal heart sounds and intact dist al pulses. Exam reveals no gallop and no friction rub. No murmur heard. Pulmonary/Chest: Effort normal and breath sounds normal. Abdominal: Soft. Bowel sounds are normal. He exhibits no mass (no hepatosplenome carmen). There is no tenderness. Musculoskeletal: Normal range of motion. Lymphadenopathy: He has no cervical adenopathy. He has no axillary adenopathy. No inguinal adenopathy noted on the right or le ft side. Right: No supraclavicular and no epitrochlear adenopathy present. Left: No supraclavicular and no epitrochlear adenopathy present. Neurological: He is alert and oriented to person, place, and time. Examination of both lower extremities show 3/5 strength in right lower extremity and 3/5 strength in left lower extremity and he is using a walker to come to [facility]. Skin: Skin is warm and dry. No rash noted. No erythema. No pallor. Psychiatric: He has a normal mood and affect. Assessment and Plan: 1. 59 y.o. Male [...] for treatment. 13. He was hospitalized at [facility] from 05/14/19-05/18/19 after havi ng a syncopal event and was found to have extensive pulmonary emboli and receive d catheter directed thrombolysis with TPA, additionally had DESx2 placed. At nisha t time he was also found to be in Afib with RVR. He was discharged from [facility] sti on eliquis, ASA, and plavix. Previous tx HD MTX Dose 1 on 05/21/19. Rituxan 06/04/19 and 06/04/19 at local [facility] HD MTX Dose 2 06/07/19 Rituximab 06/12/2019 Current treatment: R-COEP Cycle 3 08/11/19 Plan: 1. He is doing well clinically. 2. Plan for PET with primary Oncologist, Dr Carter next week. 3. As long as there is no progressive dx on interim PET, we will plan on seeing him at the end of his treatment after 6 cycles of treatment. 4. If he has good systemic response overall, we will consider and complete TRAY CASTING MACHINE OPERATOR p px with 1-2 doses of IV HD MTX at the end of completion of systemic treatment. 5. We will arrange follow up accordingly, Patient seen and discussed with Dr. Garcia. Meeta MALCOLM Pager: [phone] Fellow/Hematology and Medical Oncology [facility] [place] ATTESTATION I have personally performed the lewis portions of the visit. I have discussed the case with the fellow and concur with the fellow documentation of history, physic al exam, assessment, and treatment plan. I have reviewed all pertinent labs and images for the patient. Notations made by myself are in italics. Staff name: Lyn Garcia MD Date: 08/25/2019 TBAND DRUMMER documented in this encounter Plan of Treatment Not on filedocumented as of this encounter Goals Goal Patient Associated Recent Progress Patient-Stat Aut hor Goal Type Problems ed? GOAL General No Carmelina Jeffrey, DENNY Note: Back to work GOAL General Yes Selam Kirk RN Note: "To get better and beat this disease" documented as of this encounter Results * CBC AND DIFF (10/28/2019 8:13 AM SWEATBAND DRUMMER) White Blood 6.9 4.5 - 11.0 K/UL [facility] Cells RBC 3.68 (L) 4.4 - 5.5 M/UL [facility] Hemoglobin 11.8 (L) 13.5 - 16.5 GM/DL [facility] Hematocrit 34.6 (L) 40 - 50 % [facility] MCV 94.2 80 - 100 FL [facility] MCH 32.1 26 - 34 PG [facility] MCHC 34.1 32.0 - 36.0 G/DL [facility] RDW 15.9 (H) 11 - 15 % [facility] Platelet Count 153 150 - 400 K/UL [facility] MPV 7.4 7 - 11 FL [facility] Neutrophils 80 (H) 41 - 77 % [facility] Lymphocytes 10 (L) 24 - 44 % [facility] Monocytes 8 4 - 12 % [facility] Eosinophils 1 0 - 5 % [facility] Basophils 1 0 - 2 % [facility] Absolute 5.50 1.8 - 7.0 K/UL [facility] Neutrophil Count Absolute Lymph 0.70 (L) 1.0 - 4.8 K/UL [facility] Count Absolute 0.50 0 - 0.80 K/UL [facility] Monocyte Count Absolute 0.10 0 - 0.45 K/UL [facility] Eosinophil Count Absolute 0.10 0 - 0.20 K/UL [facility] Basophil Count Specimen Blood Performing Organization Address [facility] one Number [facility] [address] [id number] * COMPREHENSIVE METABOLIC PANEL (10/28/2019 8:13 AM SWEATBAND DRUMMER) [facility] Sodium 134 (L) 137 - 147 MMOL/L [facility] Potassium 4.6 3.5 - 5.1 MMOL/L [facility] Chloride 99 98 - 110 MMOL/L [facility] Glucose 225 (H) 70 - 100 MG/DL [facility] Blood Urea 14 7 - 25 MG/DL [facility] Nitrogen Creatinine 0.74 0.4 - 1.24 MG/DL [facility] Calcium 9.3 8.5 - 10.6 MG/DL [facility] Total Protein 6.8 6.0 - 8.0 G/DL [facility] Total Bilirubin 0.4 0.3 - 1.2 MG/DL [facility] Albumin 4.3 3.5 - 5.0 G/DL [facility] Alk Phosphatase 89 25 - 110 U/L [facility] AST (SGOT) 19 7 - 40 U/L [facility] CO2 27 21 - 30 MMOL/L [facility] ALT (SGPT) 17 7 - 56 U/L [facility] Anion Gap 8 3 - 12 [facility] eGFR Non >60 >60 mL/min [facility] Comment: Samoan The eGFR is not validated f or use in drug dosing adjustments. Continue to use estimated creatinine clearance per dosing reference text. Please contact the Clinical Pharmacist for questions. eGFR >60 >60 mL/min [facility] Samoan Comment: The eGFR is not validated for use in drug dosing adjustments. Continue to use estimated creatinine clearance per dosing reference text. Please contact the Clinical Pharmacist for questions. Specimen Blood Performing Organization Address [facility] Ph one Number [facility] [address] [place] [address] * URIC ACID (10/28/2019 8:13 AM SWEATBAND DRUMMER) Uric Acid 3.2 (L) 4.0 - 8.0 MG/DL [facility] Specimen Blood Performing Organization Address [facility] one Number [facility] [address] [place] [address] * LDH-LACTATE DEHYDROGENASE (10/28/2019 8:13 AM SWEATBAND DRUMMER) Lactate 293 (H) 100 - 210 U/L [facility] Dehydrogenase Specimen Blood Performing Organization Address [facility] one Number [facility] [address] [place] [address] documented in this encounter Visit Diagnoses Diagnosis Diffuse large B-cell lymphoma, unspecif ied body region (HCC) documented in this encounter
--- OUTSIDE RECORDS SUMMARY | 2019-12-07 05:03 | XMS REPORT | Encounter Summary ---
Author Author [facility] Organization [facility] Address Unknown Phone Unavailable Care Team Providers Care Tailor Women'S Garment Alteration Name Role Phone Bertin Cole DO PCP Madison [place] Un[place] [address] Encounter Details Care Team Description Date Type Department Lyn Garcia MD [address] [place] [address] [phone] Diffuse large B-cell lymphoma of lymph n odes of multiple regions (HCC) (Primary Dx) 06/16/2019 Orders Only The [address] [phone] Social History Date Tobacco Use Types Packs/Day [...] documented as of this encounter Results * COMPREHENSIVE METABOLIC PANEL (08/19/2019 8:35 AM DENTURE PACKER) Sodium 137 137 - 147 MMOL/L [facility] Potassium 3.8 3.5 - 5.1 MMOL/L [...] [facility] eGFR Non >60 >60 mL/min [facility] Comment: [place] Islander The eGFR is not validated f or use in drug dosing adjustments. Continue to use estimated creatinine clearance per dosing reference text. Please contact the Clinical Pharmacist for questions. eGFR >60 >60 mL/min [facility] [place] Islander Comment: The eGFR is not validated for use in drug dosing adjustments. Continue to use estimated creatinine clearance per dosing reference text. Please contact the Clinical Pharmacist for questions. Specimen Blood Performing Organization Address [facility] one Number [facility] [address] [place] [address] * URIC ACID (08/19/2019 8:35 AM DENTURE PACKER) Uric Acid 5.0 4.0 - 8.0 MG/DL [facility] Specimen Blood Performing Organization Address [facility] one Number [facility] [address] [place] [address] * LDH-LACTATE DEHYDROGENASE (08/19/2019 8:35 AM DENTURE PACKER) Lactate 350 (H) 100 - 210 U/L [facility] Dehydrogenase Specimen Blood Performing Organization Address [facility]/Zipcode Ph one Number [facility] [address] [place] [address] documented in this encounter Visit Diagnoses Diagnosis Diffuse large B-cell lymphoma of lymph nodes of multiple regions (HCC) documented in this encounter
--- OUTSIDE RECORDS SUMMARY | 2019-12-07 05:03 | XMS REPORT | Encounter Summary ---
Author Author [facility] Organization [facility] Address Unknown Phone Unavailable Care Team Providers Care Powder Worker Name Role Phone Bertin Cole DO PCP Madison [place] [id number] Reason for Visit * Reason Comments Follow Up Encounter Details Care Team Description Date Type Department Lyn Garcia MD [address] [place] [address] [phone] Diffuse large B-cell lymphoma, unspecifi ed body region (HCC) (Primary Dx); Moderate malnutrition (HCC); Ischemic cardiomyopathy; Physical deconditioning 06/17/2019 Office Visit [facility] [address] [phone] Social History Date Tobacco Use Types Packs/Day [...] Signs Reading Time Taken Comments Vital Sign 123/82 06/17/2019 8:27 AM CDT Blood Pressure 69 06/17/2019 8:27 AM CDT Pulse 36.4 C (97.5 F) 06/17/2019 8:27 AM CDT Temperature 16 06/17/2019 8:27 AM CDT Respiratory Rate 98% 06/17/2019 8:27 AM CDT Oxygen Saturation - - Inhaled Oxygen Concentration - - Weight - - Height - - Body Mass Index documented in this encounter Functional Status Date of Assessment Functional Status Response 06/09/2019 Does the patient have a hearing impairment: No 05/19/2019 Does the patient have a visual impairment: Yes documented as of this encounter Patient Instructions * Patient Instructions* Rosette Pandey RN - 06/17/2019 8:20 AM CDT Your care team: Dr. Lyn Garcia Filtrose Crusher Jacqui Griffin APRN-PROJECT MANAGEMENT INTERN Hematology Nurse Practitioner Clinical Nurse Coordinators (CNC's) Celeste Mayfield RN, BSN Rosette Pandey RN, BSN [employer]: We strongly recommend signing up for [employer], our patient access portal, and sen ding us non-urgent questions/concerns through this portal. We will reply within one business day. This is also a great resource to view all of your labs and scan results. Please feel free to ask our production control scheduler upon checkout for help setting up your [employer] access. Phone numbers: [phone] CNCs Celeste & Rosette: [phone] Messages left on nurses line are checked Saturday through Saturday between the hours of 8:00 AM and 4:00 PM. Messages left after 4:00 pm will be returned the follow ing business day. Evening (after 4:00 PM), weekends, and holiday on-call: [phone] For urgent needs after hours, please ask for the oncologist on-call to be paged. For urgent needs during business hours, please ask for Celeste Dinero, Dr. Keri ordoñez's and Jacqui Griffin's nurse coordinators, to be paged. Notes: - Allow one business week for our office to complete any requested paperwork (FM [place], etc.) - Allow two to three business days for all medication refills. Please call your pharmacy first to check for available refills. Recommendations: Check with barge captain at appointment today locally. Stop Lasix. Weigh daily, if more than 2 pound weight gain take Lasix. documented in this encounter Progress Notes * Lyn Garcia MD - 06/17/2019 8:20 AM CDT Date of Service: 06/17/2019 Diagnosis: DLBCL GCB subtype: C-MYC is negative [...] for treatment. 13. He was hospitalized at [facility] from 05/14/19-05/18/19 after havi ng a syncopal event and was found to have extensive pulmonary emboli and receive d catheter directed thrombolysis with TPA, additionally had DESx2 placed. At nisha t time he was also found to be in Afib with RVR. He was discharged from [facility] [place] on eliquis, ASA, and plavix. CURRENT TREATMENT: HD MTX Dose 1 on 05/21/19. Rituxan 06/04/19 and 06/04/19 at local [facility] HD MTX Dose 2 06/07/19 Rituximab 06/12/2019 Interim history Patient presents today for follow up. He states he is recovering from the hospitalization. He had a PET scan done and is interested in reviewing the report. Review of Systems Constitutional: Positive for activity [...] neoplasms (HCC) Surgical History: Procedure Laterality Date LUMBAR LAMINECTOMY N/A 04/26/2019 T12-L2 POSTERIOR INSTUMENTATION ARTHRODESIS, T12-L2 LAMINECTOMY, T12-L1 POSTERI OR LATERAL DECOMPRESSION, REPAIR OF INCIDENTAL NEUROTOMY, LOCAL BONE GRAFTING pe rformed by Enoch Pandey MD at [facility]/Periop HX HEART CATHETERIZATION KYPHOPLASTY Family History Problem Relation Age of Onset Cancer-Lung Mother Cancer-Pancreas Father Social History Socioeconomic History Marital status: Spouse name: Not on file Number of children: Not on file Years of education: Not on file Highest education level: Not on file Occupational History Not on file Tobacco Use Smoking status: Former Smoker Last attempt to quit: 07/26/2015 Years since quittin.8 Smokeless tobacco: Never Used Substance and Sexual [...] needed. Max dose of 4000 mg daily allopurinol (ZYLOPRIM) 300 mg tablet Take one [...] skin as direc ignacio every 72 hours furosemide (LASIX) 40 mg tablet Take one tablet by mouth daily. gabapentin (NEURONTIN) 300 mg capsule Take 300 mg by mouth every 8 hours. losartan (COZAAR) 25 mg tablet Take one [...] by mouth twic e daily. Indications: constipation senna/docusate (SENOKOT-S) 8.6/50 mg tablet Take one tablet by mouth twice d aily. spironolactone (ALDACTONE) 25 mg tablet Take one tablet by mouth daily. Take with food. traMADol (ULTRAM) 50 mg tablet Take one tablet by mouth every 6 hours as nee ded for Pain. trimethoprim/sulfamethoxazole (BACTRIM DS) 160/800 mg tablet Take one tablet by mouth twice daily for 6 days. zolpidem (AMBIEN) 10 mg tablet Take 10 mg by mouth at bedtime as needed for Sleep. Vitals: 06/17/19 0827 BP: 123/82 Pulse: 69 Resp: 16 Temp: 36.4 C (97.5 F) TempSrc: Oral SpO2: 98% There is no height or weight on file to calculate BMI. Pain Score: Five Pain Loc: Back Pain Addressed: Current regimen [...] cervical adenopathy. He has no axillary adenopathy. Right: No inguinal, no supraclavicular and no epitrochlear adenopathy prese nt. Left: No inguinal, no supraclavicular and no epitrochlear adenopathy presen t. Neurological: He is alert and oriented to person, place, and time. Examination of both lower extremities show 3/5 strength in right lower extremity and 3/5 strength in left lower extremity and he is using a walker to come to in. Skin: Skin is warm and dry. No [...] for treatment. 13. He was hospitalized at [facility] from 05/14/19-05/18/19 after havi ng a syncopal event and was found to have extensive pulmonary emboli and receive d catheter directed thrombolysis with TPA, additionally had DESx2 placed. At nisha t time he was also found to be in Afib with RVR. He was discharged from [facility] on eliquis, ASA, and plavix. CURRENT TREATMENT: HD MTX Dose 1 on 05/21/19. Rituxan 06/04/19 and 06/04/19 at local [facility] HD MTX Dose 2 06/07/19 Rituximab 06/12/2019 Plan: 1. Patient had PET scan done which shows some response to HD MTX. 2. Patient is not a candidate for doxorubicin due to low EF. 3. We discussed alternate chemotherapy regimen with R-CVP + Etoposide, RCOEP rep lacing doxorubicin which may be as effective as R-CHOP. 4. We will provide recommendations/treatment plan to his oncologist at [place] to do this close to home. 5. We will arrange follow up accordingly, Rituximab 375mg/m2 day 1 Cyclophosphamide 750mg/m2 day 1 Vincristine 2mg Day 1 Prednisone 100mg daily days 1-5 Etoposide 50mg/m2 days 1-3 Neulasta 6mg day 4 Patient seen and discussed with Dr. Garcia. Meeta MCCALLUM Pager: [phone] Fellow/Hematology and Medical Oncology [facility] ATTESTATION I have personally performed the lewis portions of the visit. I have discussed the case with the fellow and concur with the fellow documentation of history, physic al exam, assessment, and treatment plan. I have reviewed all pertinent labs and images for the patient. Notations made by myself are in italics. Staff name: Lyn Garcia MD Date: 06/23/2019 documented in this encounter Plan of Treatment [...] B-cell lymphoma, unspecif ied body region (HCC) Moderate malnutrition (HCC) Malnutrition of moderate degree Ischemic cardiomyopathy Other specified forms of chronic ischem ic heart disease Physical deconditioning Debility, unspecified documented in this encounter
--- OUTSIDE RECORDS SUMMARY | 2019-12-07 05:03 | XMS REPORT | Encounter Summary ---
Author Author [facility] Organization [facility] Address Unknown Phone Unavailable Care Team Providers Care Health Club Manager Name Role Phone Bertin Cole DO PCP Madison [place] Un[place] [address] Shira Castanon MD 100 Encounter Details Care Team Description Date Type Department Enoch Pandey MD [address] [place] [address] 08/18/2019 [facility] [address] [address] Social History Date Tobacco Use [...] Procedure Name Priority Date/Time Associated Diag nosis SCOLIOSIS EOS AP/LAT Routine 08/18/2019 S/P spina l fusion 8:10 AM COMMERCIAL LEASING MANAGER documented in this encounter Results * SCOLIOSIS EOS AP/LAT (08/18/2019 8:10 AM COMMERCIAL LEASING MANAGER) Specimen Impressions Performed At Redemonstration of compression [...] Interface, Radiant Results - 08/18/2019 9:52 AM COMMERCIAL LEASING MANAGER Scoliosis survey COMPARISON: Scoliosis survey from May [...]
--- OUTSIDE RECORDS SUMMARY | 2019-12-07 05:03 | XMS REPORT | Encounter Summary ---
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 site excluding spleen and other solid organs (HCC) (Primary Dx) 08/18/2019 Office Visit [facility] [address] [address] Social History Date Tobacco Use [...] Signs Reading Time Taken Comments Vital Sign 127/84 08/18/2019 8:12 AM CONCRETE FORM SETTER Blood Pressure 76 08/18/2019 8:12 AM CONCRETE FORM SETTER Pulse - - Temperature - - Respiratory Rate 98% 08/18/2019 8:12 AM CONCRETE FORM SETTER Oxygen Saturation - - Inhaled Oxygen Concentration 93 kg (205 lb) 08/18/2019 8:12 AM CONCRETE FORM SETTER Weight 185.4 cm (6' 1") 08/18/2019 8:12 AM CONCRETE FORM SETTER Height 27.05 08/18/2019 8:12 AM CONCRETE FORM SETTER Body Mass Index documented in this encounter Functional Status Date of Assessment Functional Status Response 06/09/2019 Does the patient have a hearing impairment: No 05/19/2019 Does the patient have a visual impairment: Yes documented as of this encounter Progress Notes * Enoch Pandey MD - 08/18/2019 8:15 AM CONCRETE FORM SETTER [facility] NOTE SUBJECTIVE: Mr. Tse comes in today for follow-up. It's been almost four mon ths now since his thoracolumbar decompression and fusion for B-cell lymphoma. Jose roper's still having back pain. He takes probably eight to ten hydrocodone per day. He's still hurting in his back but he feels his back is better. PHYSICAL EXAM: His wound is healed. He is neurologically intact. RADIOGRAPHIC EVALUATION: PA and lateral scoliosis films show implant, component and construct intact. IMPRESSION: Generally satisfactory course after posterior instrumentation and a rthrodesis for tumor related to B-cell lymphoma. PLAN: I think he's doing pretty well. I encouraged him to try to take two five- minute walks per day. He's still in the midst of chemo. I'd like to see him ba ck in four months when he'll be eight months out from surgery. ([id number]) I Review of Systems Current Outpatient Medications on File Prior to Visit Medication Sig Dispense Refill acetaminophen (TYLENOL) 325 mg tablet Take two tablets by mouth every 6 hour s as needed. Max dose of 4000 mg daily 30 tablet 0 acyclovir (ZOVIRAX) 400 mg tablet Take 400 mg by mouth twice daily. allopurinol (ZYLOPRIM) 300 mg tablet Take one tablet by mouth daily. Take th food. 90 tablet 3 amiodarone (CORDARONE) 200 mg tablet Take with food. 2 tabs twice a day for 5 days. On 06/16 take 2 tabs daily for 7 days. On 06/23 take 1 tab daily and cont inue 60 tablet 1 apixaban (ELIQUIS) 5 mg tablet Take 5 [...] Take one capsule by mouth twice daily. 180 capsule 3 fentaNYL (DURAGESIC) 25 mcg/hr patch Apply one patch to top of skin as direc ignacio every 72 hours (Patient taking differently: Apply to top of skin as directed every 72 hours Indications: 50 mcg patch ) 10 patch 0 furosemide (LASIX) 40 mg tablet Take one tablet by mouth daily. 30 tablet 1 gabapentin (NEURONTIN) 300 mg capsule Take 300 mg by mouth every 8 hours. insulin aspart U-100 (NOVOLOG FLEXPEN U-100 INSULIN) 100 unit/mL (3 mL) inje ction PEN Inject under the skin. losartan (COZAAR) 25 mg tablet Take one tablet by mouth daily. 30 tablet 1 melatonin 5 mg tab Take one tablet [...] 8 hours as n eeded for Nausea. 15 tablet 0 oxyCODONE (ROXICODONE, OXY-IR) 5 mg tablet Take one tablet to two tablets by mouth every 3 hours as needed [address] (PROTONIX) 40 mg tablet Take one tablet by mouth daily. 90 t ablet 1 polyethylene glycol 3350 (MIRALAX) 17 g packet Take one packet by mouth twic e daily. Indications: constipation 12 each 0 prednisone (DELTASONE) 50 mg tablet Take 50 mg by mouth daily with breakfast . Indications: 2 a day for 5 day on chemo weeks senna/docusate (SENOKOT-S) 8.6/50 mg tablet Take one tablet by mouth twice d aily. 60 tablet 0 spironolactone (ALDACTONE) 25 mg tablet Take one tablet by mouth daily. Take with food. 30 tablet 1 traMADol (ULTRAM) 50 mg tablet Take one tablet by mouth every 6 hours as nee ded for Pain. 30 tablet 0 zolpidem (AMBIEN) 10 mg tablet Take 10 mg by mouth at bedtime as needed for Sleep. No current facility-administered medications on file prior to visit. No Known Allergies Vitals: 08/18/19 0812 BP: 127/84 Pulse: 76 SpO2: 98% Weight: 93 kg (205 lb) Height: 185.4 cm (73") Pain Score: Seven Body mass index is 27.05 kg/m. RETE FORM SETTER * Rkaesh Collins RN - 08/18/2019 8:15 AM CONCRETE FORM SETTER Post-operative standard of care. Additional orders, if needed, placed in a separ ate encounter. RETE FORM SETTER documented in this encounter Plan of Treatment [...]
--- OUTSIDE RECORDS SUMMARY | 2019-12-07 05:05 | XMS REPORT | Encounter Summary ---
Author Author [facility] Organization [facility] Address Unknown Phone Unavailable Care Team Providers Care Card Hand Name Role Phone MelanieBertin kim PCP Madison [place] [id number] Reason for Referral * Consultation (Discharge Pending) Referred By Contact Referred To Contact Status Reason Specialty Diagnoses / Procedures Erik Moreland DO [address] [address] New Request Procedures CARDIOLOGY HEART FAILURE FOLLOW UP APPOINTMENT REQUEST Reason for Visit * Auth/Cert Referred By Contact Referred To Contact Status Reason Specialty Diagnoses / Procedures Diagnoses DLBCL Encounter Details Care Team Description Date Type Department Erik Moreland DO [address] [address] [phone] Blair Thakur MD [address] [facility] [place], [place] [id number] Diffuse large B cell lymphoma (HCC) 06/05/2019 [facility] 06/11/2019 [address] [place] [address] Social History Date Tobacco Use Types Packs/Day [...] Signs Reading Time Taken Comments Vital Sign 117/85 06/11/2019 8:22 AM CDT Blood Pressure 69 06/11/2019 8:22 AM CDT Pulse 36.6 C (97.9 F) 06/11/2019 8:22 AM CDT Temperature - - Respiratory Rate 96% 06/11/2019 8:22 AM CDT Oxygen Saturation - - Inhaled Oxygen Concentration 92.3 kg (203 lb 6 oz) 06/11/2019 5:03 AM CDT Weight 182.9 cm (6') 06/10/2019 11:09 AM CDT Height 27.58 06/10/2019 11:09 AM CDT Body Mass Index documented in this encounter Functional Status Date of Assessment Functional Status Response 06/09/2019 Does the patient have a hearing impairment: No 05/19/2019 Does the patient have a visual impairment: Yes documented as of this encounter Discharge Summaries * Traci Mcdaniel MD - 06/11/2019 12:28 PM CDT Physician Discharge Summary Name: Refugio Lopez Date Of : 1960 Age: 59 years Admit date: 06/05/2019 Discharge date: 06/11/2019 Attending Physician: Dr. Erik Moreland Service: Hematology Physician Summary completed by: Traci Mcdaniel MD Reason for hospitalization: Planned chemotherapy of high dose methotrexate Cycle 2 Significant PMH: Medical History: Diagnosis Date Back pain CAD (coronary artery disease) Cardiomyopathy (HCC) Chronic hepatitis C (HCC) DM (diabetes mellitus) (HCC) Essential hypertension GERD (gastroesophageal reflux disease) Multiple myeloma and immunoproliferative neoplasms (HCC) Allergies: Patient has no known allergies. Admission Physical Exam notable for: Neck: JVD present., An irregular rhythm pr esent, B/l LE pedal edema. R > L foot. Admission Lab/Radiology studies notable for: Hb 8.1 WBC 2.4 ANC 1.20 Alk Phos 167 Brief Hospital Course: The patient was admitted and the following issues were a ddressed during this hospitalization: (with pertinent details). DLBCL withBulkySpinal Cord Involvements/p Laminectomy and Decompression an d Arthrodesis Patient was admitted for planned chemotherapy with High Dose Methotrexate. His p hysical exam was positive for bilateral pedal edema. His MTX treatment was place d on hold until he was diuresed. Cycle 2 MTX was administered on 06/07. Sodium bi carbonate IVF was given per protocol. 24 hours after MTX dose, Leucovorin was ad ministered and continued until MTX levels <0.1. Allopurinol was given and continued at discharge. Patient had no symptoms or side effects from methotrexate. LFTs and Cr were monitored throughout. Afibw/ RVR On admission, patient had atrial fibrillation with RVR and instances of non sust ained ventricular tachycardia during the beginning of his stay. His prior to adm ission medications of diltiazem, metoprolol, and Eliquis were continued. He rece ived one dose of digoxin on 06/07. His electrolytes were monitored to keep Mg >2 and K>4. Cardiology was consulted. Patient converted into normal sinus rhythm without intervention. Cardiology recommended to start amiodarone course and discontinue digoxin and lower the metoprolol dose. Diltiazem was discontinued on 06/08. Metoprolol was switched to Toprol XL on 06/11. CAD s/p CARLY 05/15/19 Heart Failure reduced EF On admission, patient had a history of HF with recovered EF 55% with CARLY stent. A chest X ray on 06/06 showed no cardiopulmonary abnormalities. An Echocardiogram on 06/09 showed EF at 30%. Cardiology was consulted and they recommended we disc ontinue aspirin, add aldactone, add lasix, add losartan, and continue plavix and lipitor to optimize treatment. Hx of DVT/PE On admission, patient had pedal edema. On 06/09, patient underwent an ultrasound of the right Lower extremity for continued pedal edema despite Lasix course. US of R lower extremity showed patent superficial femoral artery pseudoaneurysm isaac r Right groin area that was asymptomatic. Interventional cardiology was consulte d and on 06/10, patient had a thrombin injection procedure. An ultrasound of the groin area was done which showed closed aneurysm. His Eliquis, which was placed on hold before the procedure, was restarted. Platelets and blood was transfused as needed throughout the course of his stay. DM Type II Patient's glucose values at admission were 121. His metformin was placed on hold . His glucose ranged in the 250s-300s in the first few days of his stay. His cor rection factor was increased from a low to high correction factor which brought his values under 200. Patient's gabapentin was continued. Neutropenia Patient neutrophils dropped to 37 ANC 0.80 on 06/06. Patient received one dose o f Zarxio which improved his neutrophil count into normal ranges. Condition at Discharge: Stable Discharge Diagnoses: Hospital Problems Active Problems * (Principal) Diffuse large B cell lymphoma (HCC) Lytic bone lesions on xray Essential hypertension DM (diabetes mellitus) (HCC) Chronic hepatitis C (HCC) Cardiomyopathy (HCC) CAD (coronary artery disease) Back pain Dyslipidemia Atrial fibrillation (HCC) Pulmonary embolus (HCC) Heart failure with reduced ejection fraction (HCC) DLBCL (diffuse large B cell lymphoma) (HCC) Surgical Procedures: Interventional Cardiology: Thrombin injection Significant Diagnostic Studies and Procedures: noted in hospital course Consults: Cardiology Patient Disposition: Home Patient instructions/medications: Activity as [...] your normal activity lev el at discharge Other Activity Restrictions GROIN PRECAUTIONS No lifting, pushing or pulling more than 15 pounds for one week. No exertional activity, including walking for exercise for one week. No driving for 2 days. May return to work or school in 2 days. No baths or swimming for one week. Showers okay. No sexual activity for one week. Call if any swelling, redness or bleeding from groin site. Please hold pressure on groin and call 911 if excessive bleeding occurs. GROIN INCISION CARE Keep puncture site clean. Do no submerge in a hot tub, pool, webster, or tub for on e week. Keep the area clean and dry for one week If a band aide or dressing is still in place, remove it before showering. Do not use ointments, creams, or powders on puncture site. Report increased redness, swelling, drainage, pain, or fever >100 degrees to your physician immediately Report These Signs and Symptoms Please contact your doctor if you have any of the following symptoms: temperatu re higher than 100 degrees F, uncontrolled pain, persistent nausea and/or vomiti ng, difficulty breathing, chest pain, severe abdominal pain, headache, unable to urinate or unable to have bowel movement Questions About Your Stay For questions or concerns regarding your hospital stay, call [phone]. Discharging attending physician: ERIK MORELAND [[id number]] Low Sodium Diet You will need to monitor the amount of sodium in your diet. Do not eat more nisha n 2g (grams) or 2000mg (milligrams) per day. If you have questions regarding your diet at home, you may contact a dietitian shila t . Heart Failure Information You are at risk for readmission to the hospital because of fluid overload. Ther e are steps you can take to lower your risk: *Continue your current heart medications. Changes made have been made during you r hospital stay. *Remember to weigh yourself every morning, first thing after you urinate, and wr ite down your weigh. Take this record to your doctor's appointments. *Chart your symptoms - fatigue, shortness of breath, swelling, etc. Immediately report any worsening. *Remember to consume no more than 2,000mg (milligrams) of sodium daily. Watch ou t for packaged, processed, canned, and restaurant foods especially. *If any of your symptoms worsen, or if you gain more than 2 pounds in 24 hours, or 5 pounds in a week, call your hand knitter immediately. EARLY REPORTING OF TH LLOYD CHANGES IS VERY IMPORTANT. Condition Code Current Discharge Medication List START taking these medications Details amiodarone (CORDARONE) 200 mg tablet Take with food. 2 tabs twice a day for 5 da ys. On 06/16 take 2 tabs daily for 7 days. On 06/23 take 1 tab daily and continue Qty: 60 tablet, Refills: 1 PRESCRIPTION TYPE: Normal furosemide (LASIX) 40 mg tablet Take one tablet by mouth daily. Qty: 30 tablet, Refills: 1 PRESCRIPTION TYPE: Normal losartan (COZAAR) 25 mg tablet Take one tablet by mouth daily. Qty: 30 tablet, Refills: 1 PRESCRIPTION TYPE: Normal metoprolol XL (TOPROL XL) 50 mg extended release tablet Take three tablets by mo uth daily. Qty: 90 tablet, Refills: 1 PRESCRIPTION TYPE: Normal spironolactone (ALDACTONE) 25 mg tablet Take one tablet by mouth daily. Take wit h food. Qty: 30 tablet, Refills: 1 PRESCRIPTION TYPE: Normal trimethoprim/sulfamethoxazole (BACTRIM DS) 160/800 mg tablet Take one tablet by mouth twice daily for 6 days. Qty: 12 tablet, Refills: 0 PRESCRIPTION TYPE: Normal CONTINUE [...] 90 tablet, Refills: 3 PRESCRIPTION TYPE: Normal apixaban (ELIQUIS) 5 mg tablet Take 5 mg by mouth twice daily. PRESCRIPTION TYPE: Historical Med atorvastatin (LIPITOR) 40 mg tablet Take one [...] 180 capsule, Refills: 3 PRESCRIPTION TYPE: Normal fentaNYL (DURAGESIC) 25 mcg/hr patch Apply one patch to top of skin as directed every 72 hours Qty: 10 patch, Refills: 0 PRESCRIPTION TYPE: Print gabapentin (NEURONTIN) 300 mg capsule Take 300 mg by mouth every 8 hours. PRESCRIPTION TYPE: Historical Med melatonin 5 mg tab Take one tablet by mouth at bedtime as needed. Qty: 30 tablet, Refills: 0 PRESCRIPTION TYPE: Normal metFORMIN (GLUCOPHAGE) 500 mg tablet Take 500 mg by mouth twice daily with meals . PRESCRIPTION TYPE: Historical Med Multivitamins with Fluoride (MULTI-VITAMIN PO) Take 1 tablet by mouth daily. PRESCRIPTION TYPE: Historical Med ondansetron (ZOFRAN) 4 mg tablet Take one tablet by mouth every 8 hours as neede d for Nausea. Qty: 15 tablet, Refills: 0 PRESCRIPTION TYPE: Normal oxyCODONE (ROXICODONE, OXY-IR) 5 mg tablet Take one tablet to two tablets by blank th every 3 hours as needed Qty: 90 tablet, Refills: 0 PRESCRIPTION TYPE: Print pantoprazole DR (PROTONIX) 40 mg tablet Take 40 mg by mouth daily. PRESCRIPTION TYPE: Historical Med polyethylene glycol 3350 (MIRALAX) 17 g packet Take one packet by mouth twice da festus. Indications: constipation Qty: 12 each, Refills: 0 PRESCRIPTION TYPE: Normal senna/docusate (SENOKOT-S) 8.6/50 mg tablet Take one tablet by mouth twice daily . Qty: 60 tablet, Refills: 0 PRESCRIPTION TYPE: Normal traMADol (ULTRAM) 50 mg tablet Take 50 mg by mouth every 6 hours as needed for P ain. PRESCRIPTION TYPE: Historical Med zolpidem (AMBIEN) 10 mg tablet Take 10 mg by mouth at bedtime as needed for Slee p. PRESCRIPTION TYPE: Historical Med The following medications were removed from your list. This list includes medic ations discontinued this stay and those removed from your prior med list in our system aspirin EC 81 mg tablet diltiazem CD (CARDIZEM CD) 240 mg capsule metoprolol tartrate (LOPRESSOR) 50 mg tablet Scheduled appointments: Jun 16, 2019 1:00 PM CDT PET SCAN TORSO with PET-FLAGSTAFF [facility] ([facility]) [address] [place] [address] [address] [facility] [address] Jun 17, 2019 8:20 AM CDT (Arrive by 8:05 AM) Return Patient with Lyn Garcia MD [facility] ([facility] [address] [address] Jun 22, 2019 10:30 AM CDT Hospital Follow Up with Cynthia Maria PA-C [facility] ([facility]) [address] [facility] [address] Jul 21, 2019 10:15 AM APPLICATIONS CONSULTANT Return Patient with Enoch Pandey MD [facility] ([facility]) [address] [address] Pending items needing follow up: none Signed: Traci Mcdaniel MD 06/12/2019 cc: Primary Care Physician: Bertin Cole Verified Referring physicians: No ref. provider found Additional provider(s): documented in this encounter Medications at Time [...] for Sleep. documented as of this encounter Progress Notes * Tori Dennison RN - 06/11/2019 12:31 PM CDT Pt given discharge information. Verbalizes understanding. by the bed side. No concerns. * Erik Moreland DO - 06/11/2019 12:28 PM CDT General Progress Note Name: Refugio Lopez Today's Date: 06/11/2019 Admission Date: 06/05/2019 LOS: 6 days Assessment/Plan: Principal Problem: Diffuse large B cell lymphoma (HCC) Active Problems: Lytic bone lesions on xray Essential hypertension DM (diabetes mellitus) (HCC) Chronic hepatitis C (HCC) Cardiomyopathy (HCC) CAD (coronary artery disease) Back pain Dyslipidemia Atrial fibrillation (HCC) Pulmonary embolus (HCC) Heart failure with reduced ejection fraction (HCC) DLBCL (diffuse large B cell lymphoma) (HCC) Refugio Lopez is a 59 y.o. 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 DLBCL withBulkySpinal Cord Involvements/p Laminectomy and Decompression an d Arthrodesis Anemia -patient of Dr. Cueva and Dr. Carter in [facility] - Progressive back pain since September 2018. [...] , germinal center type, with necrosis - Dex 40mg 04/24-04/29 - Rituxan 04/25 -C-Myc negative - S/p Cycle 1 HD MTX 05/21 - S/p Cycle 2 HD MTX 06/07 Plan: >Continueallopurinol > Oxycodone and fentanyl patch for pain mgmt > Transfuse prn Afib w/ RVR, in normal sinus rhythm - Reported ED visit for A fib in 2014 following NSTEMI and CARLY. Was reportedly o n anticoagulation until earlier this year -Hospitalization 05/14-05/18 for Afib with RVR among others. Discharged with Meto prolol and diltiazem - Follows with Dr. Ayesha Vega - Digoxin 1 dose received 06/06 - Discontinued diltiazem (06/08) Plan: > Restarted LOCATION DIRECTOR Eliquis > Continue amiodarone PO 400 mg BID, follow dose adjustment schedule > Toprol XL 150 mg > Monitor daily electrolytes, Mg, Phos; replete as needed CAD s/p CARLY 05/15/19 Heart Failure with EF 30% -EF 35% in 2014 per OSH notes -Echo 04/27; EF 55%, mild LV dysfunction, madelaine-apical akinesis suggesting prior anterior GA, mild LA enlargement -CARLY placed in 2014 -CARLY placed 05/15/19.Patient had CP and mild elevation in troponin following ca theter directed thrombolysis, but no mention of an EKGor luminal abnormalities on angiogram -CXR 06/06: clear - Echo 06/09: EF 30% Plan > Continue Lipitor 40 mg qd > Continue Plavix > Cardio consulted, appreciate recs > Lasix 40 mg Dly > Continue losartan 25 mg Dly > Continue aldactone 12.5 mg Dly > Discontinue ASA per cards recs Neutropenia - Resolved - 06/06: Neutro: 37 ANC 0.80 - Received one dose of Zarxio 06/06 Hx ofDVT/PE - Hospitalized for syncopal event at [facility] 05/14-05/18. CTA demons trated "extensive bilateral pulmonary emboli." Because patient was hypotensive, he was taken to interventional cardiology who performed catheter directed thromb olysis with TPA -No signs of right heart failure on right heart cath. Discharged on 5 mg Eliquis BID - 06/09: US of R LE: patent superficial femoral artery pseudoaneurysm, R groin, a symptomatic - 06/10: Thrombin injection for pseudoaneurysm of R SMA, R Groin - repeat Plan: > Repeat Right LE ultrasound clears, Eliquis restarted UTI - Acute, asymptomatic - UA: + leukocytes, + bacteria Plan >Macrobid, discharge on 6 days Bactrim DM Type II - LOCATION DIRECTOR metformin - HA1c: 5.7 05/20/19 Plan > hold metformin, monitor glucose > continue LOCATION DIRECTOR gabapentin FEN: IVF per protocol, Lytes PRN, regular diet DVT Ppx: eliquis Code Status: Full Code Dispo: Continue admission to hematology. Pt seen and discussed with Dr. Moreland. Traci Mcdaniel MD Internal Medicine PGY1 (Pager), Available on Voalte ATTESTATION I have personally performed a history and physical exam on the patient. I have d iscussed the case with the resident and concur with the resident documentation o f history, physical exam, assessment, and treatment plan unless otherwise noted. Staff name: Erik Moreland, DO Voalte or Pager [phone] Date:06/11/2019 Subjective No overnight events. Patient feels well after procedure and has minor residual s oreness in procedure area. Patient had frothy urine for past two days. Was start ed on marcobid yesterday. Patient's new medicaiton regiment was explained and he understands his cardiac medication changes. Review of Systems Constitutional: Negative for fever and malaise/fatigue. HENT: Negative. Negative for congestion, nosebleeds and sore throat. Eyes: Negative. Respiratory: Negative. Negative for cough, sputum production and shortness of b reath. Cardiovascular: Positive for leg swelling. Negative for chest pain and palpitati ons. Gastrointestinal: Negative. Negative for abdominal pain, constipation, diarrhea , nausea and vomiting. Genitourinary: Negative. Negative for dysuria. Musculoskeletal: Negative. Negative for falls. Skin: Negative. Negative for rash. Neurological: Negative. Negative for dizziness, sensory change, focal weakness and headaches. Endo/Heme/Allergies: Negative. Psychiatric/Behavioral: Negative. The patient is not nervous/anxious. Medications Scheduled Meds: allopurinol (ZYLOPRIM) tablet 300 mg 300 mg Oral QDAY amiodarone (CORDARONE) tablet 400 mg 400 mg Oral BID Followed by [START ON 06/16/2019] amiodarone (CORDARONE) tablet 400 mg 400 mg Oral QDAY Followed by [START ON 06/23/2019] amiodarone (CORDARONE) tablet 200 mg 200 mg Oral QDAY apixaban (ELIQUIS) tablet 5 mg 5 mg Oral BID atorvastatin (LIPITOR) tablet 40 mg 40 mg Oral QDAY clopiDOGrel (PLAVIX) tablet 75 mg 75 mg Oral QDAY fentaNYL (DURAGESIC) 25 mcg/hr patch 1 patch 1 patch Transdermal Q72H* furosemide (LASIX) tablet 40 mg 40 mg Oral QDAY gabapentin (NEURONTIN) capsule 300 mg 300 mg Oral Q8H* insulin aspart U-100 (NOVOLOG FLEXPEN) injection PEN 0-12 Units 0-12 Units Subcu taneous ACHS (22) losartan (COZAAR) tablet 25 mg 25 mg Oral QDAY metoprolol XL (TOPROL XL) tablet 150 mg 150 mg Oral QDAY nitrofurantoin monohyd/m-cryst (MACROBID) capsule 100 mg 100 mg Oral BID spironolactone (ALDACTONE) tablet 25 mg 25 mg Oral QDAY Continuous Infusions: PRN and Respiratory Meds:acetaminophen Q4H PRN, alteplase PRN (Defect Rep[employer] Glassware from Rx), aluminum/magnesium hydroxide Q4H PRN, cyclobenzaprine TID PRN, diphenhydrAMINE Q4H PRN OR diphenhydrAMINE Q4H PRN, docusate BID PRN, melatonin QHS PRN, ond ansetron (ZOFRAN) IV Q6H PRN, ondansetron Q8H PRN, oxyCODONE Q3H PRN, polyethyle ne glycol 3350 BID PRN, prochlorperazine Q6H PRN, senna/docusate BID PRN, sodium chloride 0.9 % TKO infusion PRN, sodium chloride 0.9% irrigation bottle PRN No medications prior to admission. Allergies No Known Allergies Objective Vital Signs: Last Filed Vital Signs: 24 Karuna r Range BP: 117/85 (06/11 822) Temp: 36.6 C (97.9 F) (06/11 822) Pulse: 69 (06/11 822) Respirations: 18 PER MINUTE (06/11 822) SpO2: 96 % (06/11 822) BP: (103-117)/(52-85) Temp: [36.4 C (97.6 F)-36.6 C (97.9 F)] Pulse: [62-76] Respirations: [18 PER MINUTE] SpO2: [96 %-98 %] Intensity Pain Scale (Self Report): 7 (06/11/19 0930) Vitals: 06/09/19 0905 06/10/19 1109 06/11/19 0503 Weight: 90.4 kg (199 lb 3.2 oz) 90.4 kg (199 lb 4.7 oz) 92.3 kg (203 lb 6 oz) Intake/Output Summary: (Last 24 hours) Intake/Output Summary (Last 24 hours) at 06/11/2019 1334 Last data filed at 06/11/2019 0800 Gross per 24 hour Intake 1180 ml Output 1725 ml Net -545 ml Stool Occurrence: 0 Physical Exam Physical Exam Constitutional: He is oriented to person, place, and time and well-developed, we ll-nourished, and in no distress. He appears not lethargic. No distress. HENT: Head: Normocephalic and atraumatic. Right Ear: External ear normal. Left Ear: External ear normal. Nose: Nose normal. Mouth/Throat: Oropharynx is clear and moist. No oropharyngeal exudate. Eyes: Pupils are equal, round, and reactive to light. Conjunctivae and EOM are n ormal. Right eye exhibits no discharge. Left eye exhibits no discharge. No scler al icterus. Neck: Normal range of motion. Neck supple. Cardiovascular: Intact distal pulses. An irregular rhythm present. Pulmonary/Chest: Effort normal and breath sounds normal. No accessory muscle usa ge. No respiratory distress. He has no wheezes. He has no rales. He exhibits no tenderness. Abdominal: Soft. Bowel sounds are normal. He exhibits no distension. There is no tenderness. Genitourinary: Genitourinary Comments: Incision near R inguinal fold, no erythema Musculoskeletal: Normal range of motion. He exhibits edema (lower extremity steve a, mainly below ankles R> L, improved from admission). He exhibits no tenderness. Neurological: He is alert and oriented to person, place, and time. He appears no t lethargic. No cranial nerve deficit. Skin: Skin is warm and dry. No laceration and no rash noted. No cyanosis or eryt fer. Psychiatric: Mood, affect and judgment normal. Nursing note and vitals reviewed. Lab Review Hematology: Lab Results Component Value Date HGB 8.4 06/11/2019 HCT 25.8 06/11/2019 PLTCT 261 06/11/2019 WBC 2.1 06/11/2019 NEUT 61 06/11/2019 ANC 1.30 06/11/2019 LYMPH 16 06/07/2019 ALC 0.60 06/11/2019 GANESH 2 06/11/2019 AMC 0.00 06/11/2019 ABC 0.00 06/11/2019 MCV 88.5 06/11/2019 MCHC 32.6 06/11/2019 MPV 6.3 06/11/2019 RDW 20.7 06/11/2019 , Coagulation: No results found for: PT, PTT, INR, General Chemistry: Lab Results Component Value Date NA 139 06/11/2019 K 3.8 06/11/2019 CL 101 06/11/2019 GAP 5 06/11/2019 BUN 11 06/11/2019 CR 0.45 06/11/2019 GLU 114 06/11/2019 CA 8.1 06/11/2019 ALBUMIN 2.9 06/11/2019 OBSCA 1.18 04/26/2019 MG 1.8 06/11/2019 TOTBILI 0.4 06/11/2019 , Mg and PO4: Lab Results Component Value Date MG 1.8 06/11/2019 and Pertinent labs reviewed Point of Care Testing (Last 24 hours) Glucose: (!) 114 (06/11/19 05) POC Glucose (Download): (!) 114 (06/11/19825) Urine Dipstick Urine pH: 7.5 (06/11/19825) Urine Dipstick Lot #: [id number] (06/11/19825) Radiology and other Diagnostics Review: Pertinent radiology reviewed. Traci Mcdaniel MD Internal Medicine PGY-1 Pager: [phone], Available on voalte * Millicent Osuna PHARMD - 06/11/2019 10:23 AM CDT Heart Failure Medication Education Refugio Lopez accepted counseling and was engaged. he verbalized understanding . The following medications were discussed: Amiodarone Furosemide Losartan Metoprolol XL spironolactone Where indicated, the patient was provided with additional medication and/or dise ase-state information. All patient questions were answered and patient acknowle dged understanding of the medications, side effects and other pertinent medicati on information. Millicent Osuna PHARMD * Austin Walsh MD - 06/11/2019 10:21 AM CDT Cardiology Progress Note Today's Date: 06/11/2019 Name: Refugio Lopez Admission Date: 06/05/2019 LOS: 6 days Assessment/Plan: Principal Problem: Diffuse large B cell lymphoma (HCC) Active Cardiac Problems: Paroxysmal Atrial fibrillation (HCC) Heart failure with reduced ejection fraction (HCC) CAD (coronary artery disease) s/p PCI in 2014 and PCI to RCA 05/15/19 Essential hypertension DM (diabetes mellitus) (HCC) Pulmonar embolism s/p catheter directed TPA Other active medical problems: Lytic bone lesions on xray Chronic hepatitis C (HCC) Back pain Dyslipidemia DLBCL (diffuse large B cell lymphoma) (HCC) is a pleasant 59 y.o. male with past medical history significant for C AD s/p stent placement in 2014 (unknown anatomy), type 2 diabetes mellitus, HTN, hepatitis C s/p curative treatment, admission to [facility] in [place] 05/14 - 05/18/19 for atrial fibrillation with RVR, diagnosed with bilateral PEs s/p tiago ter directed thrombolysis and lower extremity DVTs. He was also diagnosed with a n RCA lesion and underwent PCI and stent placement to RCA. He was started on met oprolol tartrate and diltiazem for rate control and discharged. Atrial fibrillat ion was difficult to rate control despite high doses of AV alberto blocking agents . He converted to sinus rhythm spontaneously on Saturday and maintains sinus rhy thm since then. He has undergone a pseudoaneurysm thrombin injection on 9 with no evidence of it on repeat imaging. Atrial fibrillation: -patient has been in sinus rhythm since Saturday -c/w amiodarone; once 24 hours load switch to PO at time of discharge, could ini tiate a p.o. amiodarone taper of 400 mg twice daily for a week followed by 400 m g daily for 1 week, and finally 200 mg daily for maintenance therapy. -c/w toprol 150 mg daily -ok to stop ASA today and patient to continue apixaban and plavix from now on -maintain K>4, Mg>2 CAD: -no mention of ischemic symptoms -c/w dual therapy with plavix and apixaban -c/w atorvastatin 40 mg nightly Ischemic CM: -patient with EF of 30%, has been low since previously but patient has not been on optimal therapy for HfREF -no need for invasive assessment at this time of coronary anatomy -continue with Toprol 25 mg daily -continue with losartan 25 mg daily for ICM -continue with aldactone 25 mg daily; electrolytes are ok -may experience some improvement with maintenance of sinus rhythm. -please d/c patient on lasix 20 mg daily for maintenance; will need to check elise ght daily -f/u in HF clinic -please have patient have BMP in 5-7 days for electrolyte monitoring Pseudoaneurysm: -no evidence of pseudo on repeat US -c/w dual therapy for now as bhumika Walsh PGY5 Fellow in Cardiovascular diseases Pager number: [phone] Patient discussed with , Cardiology Attending __ Subjective: Refugio Lopez is a 59 y.o. male. Overnight Events:No new events noted. The patient denies palpitations, dyspnea, orthopnea, PND overnight. He is maintainin g sinus rhythm on amiodarone. AC was held due to pseudoaneurysms found Review of Systems: A 14 point review of systems was negative except for: Cardiovascular: positive f or lower extremity edema Objective: Medications: Scheduled Meds: allopurinol (ZYLOPRIM) tablet 300 mg 300 mg Oral QDAY amiodarone (CORDARONE) tablet 400 mg 400 mg Oral BID Followed by [START ON 06/16/2019] amiodarone (CORDARONE) tablet 400 mg 400 mg Oral QDAY Followed by [START ON 06/23/2019] amiodarone (CORDARONE) tablet 200 mg 200 mg Oral QDAY apixaban (ELIQUIS) tablet 5 mg 5 mg Oral BID atorvastatin (LIPITOR) tablet 40 mg 40 mg Oral QDAY clopiDOGrel (PLAVIX) tablet 75 mg 75 mg Oral QDAY fentaNYL (DURAGESIC) 25 mcg/hr patch 1 patch 1 patch Transdermal Q72H* furosemide (LASIX) tablet 40 mg 40 mg Oral QDAY gabapentin (NEURONTIN) capsule 300 mg 300 mg Oral Q8H* insulin aspart U-100 (NOVOLOG FLEXPEN) injection PEN 0-12 Units 0-12 Units Subcu taneous ACHS (22) losartan (COZAAR) tablet 25 mg 25 mg Oral QDAY metoprolol XL (TOPROL XL) tablet 150 mg 150 mg Oral QDAY nitrofurantoin monohyd/m-cryst (MACROBID) capsule 100 mg 100 mg Oral BID spironolactone (ALDACTONE) tablet 25 mg 25 mg Oral QDAY Continuous Infusions: PRN and Respiratory Meds:acetaminophen Q4H PRN, alteplase PRN (Defect Repairer Glassware from Rx), aluminum/magnesium hydroxide Q4H PRN, cyclobenzaprine TID PRN, diphenhydrAMINE Q4H PRN OR diphenhydrAMINE Q4H PRN, docusate BID PRN, melatonin QHS PRN, ond ansetron (ZOFRAN) IV Q6H PRN, ondansetron Q8H PRN, oxyCODONE Q3H PRN, polyethyle ne glycol 3350 BID PRN, prochlorperazine Q6H PRN, senna/docusate BID PRN, sodium chloride 0.9 % TKO infusion PRN, sodium chloride 0.9% irrigation bottle PRN Vital Signs: Last Filed Vital Signs: 24 Hour Range BP: 117/85 (06/11 822) Temp: 36.6 C (97.9 F) (06/11 822) Pulse: 69 (06/11 822) Respirations: 18 PER MINUTE (06/11 822) SpO2: 96 % (06/11 822) Height: 182.9 cm (6') (06/10 1109) BP: (103-130)/(52-85) Temp: [36.4 C (97.5 F)-36.6 C (97.9 F)] Pulse: [62-85] Respirations: [16 PER MINUTE-18 PER MINUTE] SpO2: [96 %-98 %] Intensity Pain Scale (Self Report): 7 Vitals: 06/09/19 0905 06/10/19 1109 06/11/19 0503 Weight: 90.4 kg (199 lb 3.2 oz) 90.4 kg (199 lb 4.7 oz) 92.3 kg (203 lb 6 oz) Intake/Output Summary: (Last 24 hours) Intake/Output Summary (Last 24 hours) at 06/11/2019 1021 Last data filed at 06/11/2019 0800 Gross per 24 hour Intake 1180 ml Output 1725 ml Net -545 ml Physical Exam: General Appearance: awake, alert, no apparent distress Head: normocephalic, atraumatic Eyes: conjunctivae and lids normal, pupils are equal and round Pulmonary: no increase in work of breathing, trace bibasilar crackles, no rales or rhonchi, no wheezing Cardiovascular: regular rate and rhythm, normal S1, S2, no murmurs, rubs or gall ops, 1+ pitting lower extremity Abdomen: soft, non-tender, no masses, bowel sounds normal Skin: warm, dry, rashes or lesions Neurologic Exam: neurological assessment grossly intact Laboratory Review: 24-hour labs: Results for orders placed or performed during the hospital encounter of 06/05/19 (from the past 24 hour(s)) POC GLUCOSE Collection Time: 06/10/19 10:37 AM Result Value Ref Range Glucose, POC 119 (H) 70 - 100 MG/DL POC GLUCOSE Collection Time: 06/10/19 5:08 PM Result Value Ref Range Glucose, POC 196 (H) 70 - 100 MG/DL POC GLUCOSE Collection Time: 06/10/19 10:12 PM Result Value Ref Range Glucose, POC 231 (H) 70 - 100 MG/DL CBC AND DIFF CELLULAR THERAPEUTICS Collection Time: 06/11/19 4:58 AM Result Value Ref Range White Blood Cells 2.1 (L) 4.5 - 11.0 K/UL RBC 2.92 (L) 4.4 - 5.5 M/UL Hemoglobin 8.4 (L) 13.5 - 16.5 GM/DL Hematocrit 25.8 (L) 40 - 50 % MCV 88.5 80 - 100 FL MCH 28.8 26 - 34 PG MCHC 32.6 32.0 - 36.0 G/DL RDW 20.7 (H) 11 - 15 % Platelet Count 261 150 - 400 K/UL MPV 6.3 (L) 7 - 11 FL Neutrophils 61 41 - 77 % Lymphocytes 30 24 - 44 % Monocytes 2 (L) 4 - 12 % Eosinophils 5 0 - 5 % Basophils 2 0 - 2 % Absolute Neutrophil Count 1.30 (L) 1.8 - 7.0 K/UL Absolute Lymph Count 0.60 (L) 1.0 - 4.8 K/UL Absolute Monocyte Count 0.00 0 - 0.80 K/UL Absolute Eosinophil Count 0.10 0 - 0.45 K/UL Absolute Basophil Count 0.00 0 - 0.20 K/UL COMPREHENSIVE METABOLIC PANEL CELLULAR THERAPEUTICS Collection Time: 06/11/19 5:59 AM Result Value Ref Range Sodium 139 137 - 147 MMOL/L Potassium 3.8 3.5 - 5.1 MMOL/L Chloride 101 98 - 110 MMOL/L Glucose 114 (H) 70 - 100 MG/DL Blood Urea Nitrogen 11 7 - 25 MG/DL Creatinine 0.45 0.4 - 1.24 MG/DL Calcium 8.1 (L) 8.5 - 10.6 MG/DL Total Protein 5.0 (L) 6.0 - 8.0 G/DL Total Bilirubin 0.4 0.3 - 1.2 MG/DL Albumin 2.9 (L) 3.5 - 5.0 G/DL Alk Phosphatase 135 (H) 25 - 110 U/L AST (SGOT) 16 7 - 40 U/L CO2 33 (H) 21 - 30 MMOL/L ALT (SGPT) 9 7 - 56 U/L Anion Gap 5 3 - 12 eGFR Non >60 >60 mL/min eGFR >60 >60 mL/min MAGNESIUM CELLULAR THERAPEUTICS Collection Time: 06/11/19 5:59 AM Result Value Ref Range Magnesium 1.8 1.6 - 2.6 mg/dL PHOSPHORUS CELLULAR THERAPEUTICS Collection Time: 06/11/19 5:59 AM Result Value Ref Range Phosphorus 3.9 2.0 - 4.5 MG/DL URIC ACID Collection Time: 06/11/19 5:59 AM Result Value Ref Range Uric Acid 4.2 4.0 - 8.0 MG/DL LDH-LACTATE DEHYDROGENASE Collection Time: 06/11/19 5:59 AM Result Value Ref Range Lactate Dehydrogenase 220 (H) 100 - 210 U/L METHOTREXATE Collection Time: 06/11/19 5:59 AM Result Value Ref Range Methotrexate 0.06 MCMOL/L POC GLUCOSE Collection Time: 06/11/19 8:26 AM Result Value Ref Range Glucose, POC 114 (H) 70 - 100 MG/DL Point of Care Testing: (Last 24 hours): Glucose: (!) 114 (06/11/19558) POC Glucose (Download): (!) 114 (06/11/19825) Urine Dipstick Urine pH: 7.5 (06/11/19825) Urine Dipstick Lot #: [id number] (06/11/19825) Cardiographics: ECG: atrial fibrillation with RVR at a rate of 120bpm, possible old septal myoca rdial infarction, poor R wave progression Chest X-Ray: no pulmonary edema, mild bibasilar atelectasis or scarring Austin Walsh MD * Rita Zambrano APRN - 06/11/2019 9:18 AM CDT Cardiology Daily Progress Note Refugio Lopez Admission Date: 06/05/2019 Assessment/Plan: Principal Problem: Diffuse large B cell lymphoma (HCC) Active Problems: Lytic bone lesions on xray Essential hypertension DM (diabetes mellitus) (HCC) Chronic hepatitis C (HCC) Cardiomyopathy (HCC) CAD (coronary artery disease) Back pain Dyslipidemia Atrial fibrillation (HCC) Pulmonary embolus (HCC) Heart failure with reduced ejection fraction (HCC) DLBCL (diffuse large B cell lymphoma) (HCC) 59 y.o. male patient with diffuse large B cell lymphoma stage IV, h/o NSTEMi wit h CARLY to LAD and recent DESx 2 to RCA, DVT with extensive pulmonary emboli s/p c atheter directed TPA , and atrial fibrillation on oral AC with Eliquis who was f ound to have evidence of a right groin pseudoaneurysm. Assessment/Plan: Right groin superficial femoral artery pseudoaneurysm -Patient has recently had catheter directed TPA on 05/14/19 as well as drug-elut ing stents placed placed through a femoral approach on 05/15/19 - The 1.3 x 2.2 cm pseudoaneurysm was an incidental finding on venous duplex wh ich was done for lower extremity swelling - He had no pain with palpation, or otherwise, and there was no bruit on exam. - 06/10 he was taken to the construction [facility] lab[facility] and underwent succesful thrombin injection of the pseudoaneurysm. - post procedure duplex looked good and no evidence of pseudo or AV fistula - 06/11 - ok to resume Eliquis this morning. Continue ASA and Plavix uninterrupt ed for minimum of 6-12 months. - He follows with Dr. Vega in [place] and should follow up in the next 1 kimberly h. May take off tegaderm dressing this evening when he showers. Plan: Will place activity and incision care in O2. No further Interventional Cardiolog y procedures planned. Will sign off. Thank you for allowing us to participate in the care of this very nice gentleman . Rita Zambrano, WAREHOUSE DISTRIBUTION MANAGER ([id number]) __ Subjective: Denies complaints other than some mild tenderness to the right groi n. Allergies: Patient has no known allergies. Physical Exam: Vital Signs: Last Filed In 24 Hours Vital Signs: 24 Hour Range BP: 117/85 (06/11 822) Temp: 36.6 C (97.9 F) (06/11 822) Pulse: 69 (06/11 822) Respirations: 18 PER MINUTE (06/11 822) SpO2: 96 % (06/11 822) SpO2 Pulse: 78 (06/10 1000) Height: 182.9 cm (6') (06/10 1109) BP: (103-130)/(52-85) Temp: [36.4 C (97.5 F)-36.6 C (97.9 F)] Pulse: [62-85] Respirations: [12 PER MINUTE-19 PER MINUTE] SpO2: [94 %-98 %] Intensity Pain Scale (Self Report): 8 (06/10/192019) Intake/Outpur Summary: (Last 24 hours) Intake/Output Summary (Last 24 hours) at 06/11/2019917 Last data filed at 06/11/2019 0800 Gross per 24 hour Intake 1580 ml Output 1825 ml Net -245 ml Vitals: 06/09/19 0905 06/10/19 1109 06/11/19 0503 Weight: 90.4 kg (199 lb 3.2 oz) 90.4 kg (199 lb 4.7 oz) 92.3 kg (203 lb 6 oz) allopurinol (ZYLOPRIM) tablet 300 mg 300 mg Oral QDAY 300 mg at 06/10/19 1002 amiodarone (CORDARONE) tablet 400 mg 400 mg Oral BID 400 mg at 06/10/192020 Followed by [START ON 06/16/2019] amiodarone (CORDARONE) tablet 400 mg 400 mg Oral QDAY Followed by [START ON 06/23/2019] amiodarone (CORDARONE) tablet 200 mg 200 mg Oral QDAY apixaban (ELIQUIS) tablet 5 mg 5 mg Oral BID atorvastatin (LIPITOR) tablet 40 mg 40 mg Oral QDAY 40 mg at 06/10/19 1002 clopiDOGrel (PLAVIX) tablet 75 mg 75 mg Oral QDAY 75 mg at 06/10/19 1003 fentaNYL (DURAGESIC) 25 mcg/hr patch 1 patch 1 patch Transdermal Q72H* Stopped a t 06/08/19 1716 furosemide (LASIX) tablet 40 mg 40 mg Oral QDAY 40 mg at 06/10/19 1003 gabapentin (NEURONTIN) capsule 300 mg 300 mg Oral Q8H* 300 mg at 06/11/19 0149 insulin aspart U-100 (NOVOLOG FLEXPEN) injection PEN 0-12 Units 0-12 Units Subcu taneous ACHS (22) 2 Units at 06/10/19 2226 leucovorin calcium injection 50 mg 50 mg Intravenous Q6H* 50 mg at 06/11/19 0438 losartan (COZAAR) tablet 25 mg 25 mg Oral QDAY 25 mg at 06/10/19 1002 metoprolol XL (TOPROL XL) tablet 150 mg 150 mg Oral QDAY nitrofurantoin monohyd/m-cryst (MACROBID) capsule 100 mg 100 mg Oral BID 100 mg at 06/10/192021 spironolactone (ALDACTONE) tablet 25 mg 25 mg Oral QDAY 25 mg at 06/10/19 1003 Physical Exam Physical Exam General Appearance: well developed, appears stated age, no acute distress Neck Veins: neck veins are not distended Auscultation/Percussion: lungs clear to auscultation, no rales or rhonchi, no wh eezing Cardiac Auscultation: regular rate and rhythm, S1, S2 normal, no rub, no gallop , murmurs, Carotid Arteries: no bruits Pedal Pulses: normal symmetric pedal pulses Lower Extremity : right groin with mild tenderness. No bruit, hematoma, drainage . Abdominal Exam: soft, non-tender, non-distended, normal bowel sounds. No abdomin al bruits Neurologic Exam: neurological assessment grossly intact Laboratory Review: Hematology: Lab Results Component Value Date HGB 8.4 06/11/2019 HCT 25.8 06/11/2019 PLTCT 261 06/11/2019 WBC 2.1 06/11/2019 NEUT 61 06/11/2019 ANC 1.30 06/11/2019 LYMPH 16 06/07/2019 ALC 0.60 06/11/2019 GANESH 2 06/11/2019 AMC 0.00 06/11/2019 ABC 0.00 06/11/2019 MCV 88.5 06/11/2019 MCHC 32.6 06/11/2019 MPV 6.3 06/11/2019 RDW 20.7 06/11/2019 , Coagulation: No results found for: PT, PTT, INR and General Chemistry: Lab Results Component Value Date NA 139 06/11/2019 K 3.8 06/11/2019 CL 101 06/11/2019 GAP 5 06/11/2019 BUN 11 06/11/2019 CR 0.45 06/11/2019 GLU 114 06/11/2019 CA 8.1 06/11/2019 ALBUMIN 2.9 06/11/2019 OBSCA 1.18 04/26/2019 MG 1.8 06/11/2019 TOTBILI 0.4 06/11/2019 Cardiographics: 06/10/19 right groin duplex Interpretation Summary 1. No evidence of pseudoaneurysm or AV fistula. 2. A 2.8 x 1.0 cm hematoma seen in right groin at the site of recent pseudoaneur ysm thrombin injection. No flow noted by color or spectral Doppler 3. No significant stenosis in visualized arteries. 4. No evidence of thrombus in visualized veins Rita Zambrano APRN ([id number]) * Rita Zambrano APRN - 06/10/2019 4:50 PM CDT Interventional cardiology progress: Post thrombin injection this morning and tolerated well. Right groin duplex shows resolution of pseudoaneurysm, and no evidence of AV fis gerri. Ok to resume anticoagulation with AM dose. Rita Zambrano APRN-[facility] Interventional Cardiology Pager [phone] Interpretation Summary 1. No evidence of pseudoaneurysm or AV fistula. 2. A 2.8 x 1.0 cm hematoma seen in right groin at the site of recent pseudoaneur ysm thrombin injection. No flow noted by color or spectral Doppler 3. No significant stenosis in visualized arteries. 4. No evidence of thrombus in visualized veins * Selena Wooten RN - 06/10/2019 10:32 AM CDT Patient back to unit. Groin site covered with tegaderm. C/D/I. * Austin Walsh MD - 06/10/2019 8:07 AM CDT Cardiology Progress Note Today's Date: 06/10/2019 Name: Refugio Lopez Admission Date: 06/05/2019 LOS: 5 days Assessment/Plan: Principal Problem: Diffuse large B cell lymphoma (HCC) Active Cardiac Problems: Paroxysmal Atrial fibrillation (HCC) Heart failure with reduced ejection fraction (HCC) CAD (coronary artery disease) s/p PCI in 2014 and PCI to RCA 05/15/19 Essential hypertension DM (diabetes mellitus) (HCC) Pulmonar embolism s/p catheter directed TPA Other active medical problems: Lytic bone lesions on xray Chronic hepatitis C (HCC) Back pain Dyslipidemia DLBCL (diffuse large B cell lymphoma) (HCC) is a pleasant 59 y.o. male with past medical history significant for C AD s/p stent placement in 2014 (unknown anatomy), type 2 diabetes mellitus, HTN, hepatitis C s/p curative treatment, admission to [facility] in [place] 05/14 - 05/18/19 for atrial fibrillation with RVR, diagnosed with bilateral PEs s/p tiago ter directed thrombolysis and lower extremity DVTs. He was also diagnosed with a n RCA lesion and underwent PCI and stent placement to RCA. He was started on met oprolol tartrate and diltiazem for rate control and discharged. Atrial fibrillat ion was difficult to rate control despite high doses of AV alberto blocking agents . He converted to sinus rhythm spontaneously on Saturday and maintains sinus rhy thm since then Atrial fibrillation: -patient has been in sinus rhythm since Saturday -c/w amiodarone; once 24 hours load switch to PO at time of discharge, could ini tiate a p.o. amiodarone taper of 400 mg twice daily for a week followed by 400 m g daily for 1 week, and finally 200 mg daily for maintenance therapy. -would switch lopressor to toprol XL at 150 mg starting tomorrow AM -continue dual antiplatelet therapy plus apixaban for anticoagulation until 06/15, on 06/16/19 the patient can stop taking aspirin and remain on plavix and api xaban given recent PCI of the RCA -hold AC temporarily for thrombin injection today -maintain K>4, Mg>2 CAD: -no mention of ischemic symptoms -c/w triple therapy up until the end of the month, as described above -c/w atorvastatin 40 mg nightly Ischemic CM: -patient with EF of 30%, has been low since previously -no need for invasive assessment at this time of coronary anatomy -switch to Toprol 25 mg daily, starting tomorrow AM -continue with losartan 25 mg daily for ICM -would start aldactone 25 mg daily; K and creatinine ok to do so -may experience some improvement with maintenance of sinus rhythm. -c/w IV diuresis to reach euvolemic state Pseudoaneurysm: -to undergo thrombin injection today -keep holding AC for at least 24 hours -repeat Doppler tomorrow AM to ensure closure of pseudo -if closed then can resume AC after. Will continue to follow Austin Walsh PGY5 Fellow in Cardiovascular diseases Pager number: [phone] Patient discussed with , Cardiology Attending __ Subjective: Refugio Lopez is a 59 y.o. male. Overnight Events:No new events noted. The patient denies palpitations, dyspnea, orthopnea, PND overnight. He is maintainin g sinus rhythm on amiodarone. AC was held due to pseudoaneurysms found Review of Systems: A 14 point review of systems was negative except for: Cardiovascular: positive f or lower extremity edema Objective: Medications: Scheduled Meds: [NOV Hold] allopurinol (ZYLOPRIM) tablet 300 mg 300 mg Oral QDAY [Nov] amiodarone (CORDARONE) tablet 400 mg 400 mg Oral BID Followed by [NOV Hold] amiodarone (CORDARONE) tablet 400 mg 400 mg Oral QDAY Followed by [NOV Hold] amiodarone (CORDARONE) tablet 200 mg 200 mg Oral QDAY [NOV Hold] atorvastatin (LIPITOR) tablet 40 mg 40 mg Oral QDAY [NOV Hold] clopiDOGrel (PLAVIX) tablet 75 mg 75 mg Oral QDAY [NOV Hold] fentaNYL (DURAGESIC) 25 mcg/hr patch 1 patch 1 patch Transdermal Q72H * [NOV Hold] furosemide (LASIX) tablet 40 mg 40 mg Oral QDAY gabapentin (NEURONTIN) capsule 300 mg 300 mg Oral Q8H* [NOV Hold] insulin aspart U-100 (NOVOLOG FLEXPEN) injection PEN 0-12 Units 0-12 Units Subcutaneous ACHS (22) [NOV Hold] leucovorin calcium injection 50 mg 50 mg Intravenous Q6H* [NOV Hold] losartan (COZAAR) tablet 25 mg 25 mg Oral QDAY [Nov] magnesium sulfate 1 g/D5W 100 mL IVPB 1 g Intravenous ONCE [NOV Hold] metoprolol tartrate (LOPRESSOR) tablet 75 mg 75 mg Oral BID Continuous Infusions: dextrose 5% (D5W) with sodium bicarbonate 150 mEq 1,150 mL IV infusion 75 mL /hr at 06/10/19 0314 sodium chloride 0.9 % infusion PRN and Respiratory Meds:[NOV Hold] alteplase PRN (Defect Repairer Glassware from Rx), [NOV Hold] cyclobenzaprine TID PRN, [NOV Hold] docusate BID PRN, [NOV Hold] LORazepam (ATI VAN) injection Q6H PRN, [NOV Hold] LORazepam Q6H PRN, [NOV Hold] melatonin QHS PRN, [NOV Hold] ondansetron Q8H PRN, [NOV Hold] oxyCODONE Q3H PRN, [NOV Hold] po lyethylene glycol 3350 BID PRN, [NOV Hold] prochlorperazine Q6H PRN, [NOV Hold] prochlorperazine Q6H PRN, [NOV Hold] senna/docusate BID PRN, [NOV Hold] sodium b icarbonate 1 mEq/mL IVPB (max conc) PRN (Defect Repairer Glassware from Rx), [NOV Hold] sodium ch loride 0.9 % TKO infusion PRN, [NOV Hold] sodium chloride 0.9% irrigation bottle PRN Vital Signs: Last Filed Vital Signs: 24 Hour Range BP: 125/80 (06/10 753) Temp: 36.3 C (97.4 F) (06/10 753) Pulse: 63 (06/10 753) Respirations: 12 PER MINUTE (06/10 753) SpO2: 98 % (06/10 753) BP: (97-125)/(67-80) Temp: [36.3 C (97.4 F)-36.8 C (98.3 F)] Pulse: [59-80] Respirations: [12 PER MINUTE-18 PER MINUTE] SpO2: [96 %-100 %] Intensity Pain Scale (Self Report): 6 Vitals: 06/08/19 0955 06/08/19 1617 06/09/19 0905 Weight: 92.1 kg (203 lb) 90.3 kg (199 lb) 90.4 kg (199 lb 3.2 oz) Intake/Output Summary: (Last 24 hours) Intake/Output Summary (Last 24 hours) at 06/10/2019 0807 Last data filed at 06/10/2019 0712 Gross per 24 hour Intake 898 ml Output 2875 ml Net -1977 ml Physical Exam: General Appearance: awake, alert, no apparent distress Head: normocephalic, atraumatic Eyes: conjunctivae and lids normal, pupils are equal and round Pulmonary: no increase in work of breathing, trace bibasilar crackles, no rales or rhonchi, no wheezing Cardiovascular: regular rate and rhythm, normal S1, S2, no murmurs, rubs or gall ops, 1+ pitting lower extremity Abdomen: soft, non-tender, no masses, bowel sounds normal Skin: warm, dry, rashes or lesions Neurologic Exam: neurological assessment grossly intact Laboratory Review: 24-hour labs: Results for orders placed or performed during the hospital encounter of 06/05/19 (from the past 24 hour(s)) POC GLUCOSE Collection Time: 06/09/19 12:20 PM Result Value Ref Range Glucose, POC 174 (H) 70 - 100 MG/DL POC GLUCOSE Collection Time: 06/09/19 5:30 PM Result Value Ref Range Glucose, POC 197 (H) 70 - 100 MG/DL URINALYSIS DIPSTICK REFLEX TO CULTURE Collection Time: 06/09/19 8:03 PM Result Value Ref Range Color,UA YELLOW Turbidity,UA CLEAR CLEAR-CLEAR Specific Fossil-Urine 1.006 1.003 - 1.035 pH,UA 8.0 5.0 - 8.0 Protein,UA NEG NEG-NEG Glucose,UA NEG NEG-NEG Ketones,UA NEG NEG-NEG Bilirubin,UA NEG NEG-NEG Blood,UA NEG NEG-NEG Urobilinogen,UA INCREASED (A) NORM-NORMAL Nitrite,UA NEG NEG-NEG Leukocytes,UA 3+ (A) NEG-NEG Urine Ascorbic Acid, UA NEG NEG-NEG URINALYSIS MICROSCOPIC REFLEX TO CULTURE Collection Time: 06/09/19 8:03 PM Result Value Ref Range WBCs,UA PACKED 0 - 2 /HPF RBCs,UA 0-2 0 - 3 /HPF Comment,UA Criteria for reflex to culture are WBC>10, Positive Nitrite, and/or >=+1 leukocytes. If quantity is not sufficient, an addendum will follow. Bacteria,UA MANY (A) NEG-NEG POC GLUCOSE Collection Time: 06/09/19 10:18 PM Result Value Ref Range Glucose, POC 167 (H) 70 - 100 MG/DL CBC AND DIFF CELLULAR THERAPEUTICS Collection Time: 06/10/19 3:20 AM Result Value Ref Range White Blood Cells 2.7 (L) 4.5 - 11.0 K/UL RBC 3.12 (L) 4.4 - 5.5 M/UL Hemoglobin 8.9 (L) 13.5 - 16.5 GM/DL Hematocrit 28.0 (L) 40 - 50 % MCV 89.7 80 - 100 FL MCH 28.4 26 - 34 PG MCHC 31.7 (L) 32.0 - 36.0 G/DL RDW 21.1 (H) 11 - 15 % Platelet Count 325 150 - 400 K/UL MPV 6.3 (L) 7 - 11 FL Neutrophils 68 41 - 77 % Lymphocytes 27 24 - 44 % Monocytes 2 (L) 4 - 12 % Eosinophils 2 0 - 5 % Basophils 1 0 - 2 % Absolute Neutrophil Count 1.80 1.8 - 7.0 K/UL Absolute Lymph Count 0.70 (L) 1.0 - 4.8 K/UL Absolute Monocyte Count 0.00 0 - 0.80 K/UL Absolute Eosinophil Count 0.10 0 - 0.45 K/UL Absolute Basophil Count 0.00 0 - 0.20 K/UL COMPREHENSIVE METABOLIC PANEL CELLULAR THERAPEUTICS Collection Time: 06/10/19 3:20 AM Result Value Ref Range Sodium 139 137 - 147 MMOL/L Potassium 4.0 3.5 - 5.1 MMOL/L Chloride 101 98 - 110 MMOL/L Glucose 121 (H) 70 - 100 MG/DL Blood Urea Nitrogen 16 7 - 25 MG/DL Creatinine 0.56 0.4 - 1.24 MG/DL Calcium 7.7 (L) 8.5 - 10.6 MG/DL Total Protein 5.3 (L) 6.0 - 8.0 G/DL Total Bilirubin 0.3 0.3 - 1.2 MG/DL Albumin 3.2 (L) 3.5 - 5.0 G/DL Alk Phosphatase 166 (H) 25 - 110 U/L AST (SGOT) 14 7 - 40 U/L CO2 33 (H) 21 - 30 MMOL/L ALT (SGPT) 6 (L) 7 - 56 U/L Anion Gap 5 3 - 12 eGFR Non >60 >60 mL/min eGFR >60 >60 mL/min MAGNESIUM CELLULAR THERAPEUTICS Collection Time: 06/10/19 3:20 AM Result Value Ref Range Magnesium 1.9 1.6 - 2.6 mg/dL PHOSPHORUS CELLULAR THERAPEUTICS Collection Time: 06/10/19 3:20 AM Result Value Ref Range Phosphorus 3.8 2.0 - 4.5 MG/DL URIC ACID Collection Time: 06/10/19 3:20 AM Result Value Ref Range Uric Acid 4.4 4.0 - 8.0 MG/DL LDH-LACTATE DEHYDROGENASE Collection Time: 06/10/19 3:20 AM Result Value Ref Range Lactate Dehydrogenase 272 (H) 100 - 210 U/L METHOTREXATE Collection Time: 06/10/19 3:20 AM Result Value Ref Range Methotrexate 0.14 MCMOL/L Point of Care Testing: (Last 24 hours): Glucose: (!) 121 (06/10/19 0320) POC Glucose (Download): (!) 167 (06/09/192217) Urine Dipstick Urine pH: 7.5 (06/09/197) Urine Dipstick Lot #: [id number] (06/09/192002) Cardiographics: ECG: atrial fibrillation with RVR at a rate of 120bpm, possible old septal myoca rdial infarction, poor R wave progression Chest X-Ray: no pulmonary edema, mild bibasilar atelectasis or scarring Austin Walsh MD Associated attestation - Adelita Whaley MD - 06/10/2019 7:02 PM CDT Cardiology Staff Physician Attestation I have personally interviewed and examined the patient. I have reviewed the [facility] record, pertinent imaging / laboratory studies, and all pertinent medical d ocumentation including the history, physical, and impression. I agree with the jointly formulated treatment plan as outlined by the weight analyst. Carlton Whaley MD [facility] Cardiology [id number] * Erik Moreland DO - 06/10/2019 7:19 AM CDT General Progress Note Name: Refugio Lopez Today's Date: 06/10/2019 Admission Date: 06/05/2019 LOS: 5 days Assessment/Plan: Principal Problem: Diffuse large B cell lymphoma (HCC) Active Problems: Lytic bone lesions on xray Essential hypertension DM (diabetes mellitus) (HCC) Chronic hepatitis C (HCC) Cardiomyopathy (HCC) CAD (coronary artery disease) Back pain Dyslipidemia Atrial fibrillation (HCC) Pulmonary embolus (HCC) Heart failure with reduced ejection fraction (HCC) DLBCL (diffuse large B cell lymphoma) (HCC) Refugio Lopez is a 59 y.o. 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 DLBCL withBulkySpinal Cord Involvements/p Laminectomy and Decompression an d Arthrodesis Anemia -patient of Dr. Cueva - Progressive back [...] , germinal center type, with necrosis - Dex 40mg 04/24-04/29 - Rituxan 04/25 -C-Myc negative - S/p Cycle 1 HD MTX 05/21 - S/p Cycle 2 HD MTX 06/07 Plan: > Sodium bicarb as per protocol > Administer concentrated leucovorin until MTX levels <0.1 >Continueallopurinol > Oxycodone and fentanyl patch for pain mgmt > Transfuse prn Afib w/ RVR, in normal sinus rhythm - Reported ED visit for A fib in 2014 following NSTEMI and CARLY. Was reportedly o n anticoagulation until earlier this year -Hospitalization 05/14-05/18 for Afib with RVR among others. Discharged with Meto prolol and diltiazem - Follows with Dr. Ayesha Vega - Digoxin 1 dose received 06/06 - Discontinued diltiazem (06/08) Plan: > Holding Eliquis today due to interventional cardiology procedure > Continue amiodarone PO 400 mg BID > Continue metoprolol 75 mg BID, switch to Toprol XL 150 mg tomorrow > Monitor daily electrolytes, Mg, Phos; replete as needed CAD s/p CARLY 05/15/19 Heart Failure with EF 30% -EF 35% in 2015 per OSH notes -Echo 04/27; EF 55%, mild LV dysfunction, madelaine-apical akinesis suggesting prior anterior GA, mild LA enlargement -CARLY placed in 2014 -CARLY placed 05/15/19.Patient had CP and mild elevation in troponin following ca theter directed thrombolysis, but no mention of an EKGor luminal abnormalities on angiogram -CXR 06/06: clear - Echo 06/09: EF 30% Plan > Continue Lipitor 40 mg qd > Continue Plavix > Cardio consulted, appreciate recs > Lasix 40 mg Dly - goal net negative > Continue losartan 25 mg Dly > Added aldactone 12.5 mg Dly > Discontinue ASA per cards recs Neutropenia - Resolved - 06/06: Neutro: 37 ANC 0.80 - Received one dose of Zarxio 06/06 Hx ofDVT/PE - Hospitalized for syncopal event at [facility] 05/14-05/18. CTA demons trated "extensive bilateral pulmonary emboli." Because patient was hypotensive, he was taken to interventional cardiology who performed catheter directed thromb olysis with TPA -No signs of right heart failure on right heart cath. Discharged on 5 mg Eliquis BID - 06/09: US of R LE: patent superficial femoral artery pseudoaneurysm, R groin, a symptomatic - 06/10: Thrombin injection for pseudoaneurysm of R SMA, R Groin Plan: > Holding Eliquis 5mg BID until repeat Right LE ultrasound clears DM Type II - LOCATION DIRECTOR metformin - HA1c: 5.7 05/20/19 Plan > hold metformin, monitor glucose > continue LOCATION DIRECTOR gabapentin FEN: IVF per protocol, Lytes PRN, regular diet DVT Ppx: Holding eliquis Code Status: Full Code Dispo: Continue admission to hematology. Pt seen and discussed with Dr. Moreland. Traci Mcdaniel MD Internal Medicine PGY1 (Pager), Available on Voalte ATTESTATION I have personally performed a history and physical exam on the patient. I have d iscussed the case with the resident and concur with the resident documentation o f history, physical exam, assessment, and treatment plan unless otherwise noted. Staff name: Erik Moreland, DO Voalte or Pager [phone] Date:06/10/2019 Subjective Pt returned from thrombin injection procedure. No complaints of pain, indigestio n, or discomfort post procedure. Thinks R lower extremity edema is improving. Ea ting regular diet. Review of Systems Constitutional: Negative for fever and malaise/fatigue. HENT: Negative. Negative for congestion, nosebleeds and sore throat. Eyes: Negative. Respiratory: Negative. Negative for cough, sputum production and shortness of b reath. Cardiovascular: Positive for leg swelling. Negative for chest pain and palpitati ons. Gastrointestinal: Negative. Negative for abdominal pain, constipation, diarrhea , nausea and vomiting. Genitourinary: Negative. Negative for dysuria. Musculoskeletal: Negative. Negative for falls. Skin: Negative. Negative for rash. Neurological: Negative. Negative for dizziness, sensory change, focal weakness and headaches. Endo/Heme/Allergies: Negative. Psychiatric/Behavioral: Negative. The patient is not nervous/anxious. Medications Scheduled Meds: allopurinol (ZYLOPRIM) tablet 300 mg 300 mg Oral QDAY amiodarone (CORDARONE) tablet 400 mg 400 mg Oral BID Followed by [START ON 06/16/2019] amiodarone (CORDARONE) tablet 400 mg 400 mg Oral QDAY Followed by [START ON 06/23/2019] amiodarone (CORDARONE) tablet 200 mg 200 mg Oral QDAY apixaban (ELIQUIS) tablet 5 mg 5 mg Oral BID aspirin EC tablet 81 mg 81 mg Oral QDAY atorvastatin (LIPITOR) tablet 40 mg 40 mg Oral QDAY clopiDOGrel (PLAVIX) tablet 75 mg 75 mg Oral QDAY fentaNYL (DURAGESIC) 25 mcg/hr patch 1 patch 1 patch Transdermal Q72H* furosemide (LASIX) tablet 40 mg 40 mg Oral QDAY gabapentin (NEURONTIN) capsule 300 mg 300 mg Oral Q8H* insulin aspart U-100 (NOVOLOG FLEXPEN) injection PEN 0-12 Units 0-12 Units Subcu taneous ACHS (22) leucovorin calcium injection 50 mg 50 mg Intravenous Q6H* losartan (COZAAR) tablet 25 mg 25 mg Oral QDAY metoprolol tartrate (LOPRESSOR) tablet 75 mg 75 mg Oral BID Continuous Infusions: dextrose 5% (D5W) with sodium bicarbonate 150 mEq 1,150 mL IV infusion 75 mL /hr at 06/10/19 0314 sodium chloride 0.9 % infusion PRN and Respiratory Meds:alteplase PRN (Defect Repairer Glassware from Rx), cyclobenzaprine TID DE N, docusate BID PRN, LORazepam (ATIVAN) injection Q6H PRN, LORazepam Q6H PRN, melatonin QHS PRN, ondansetron Q8H PRN, oxyCODONE Q3H PRN, polyethylene glycol 3 350 BID PRN, prochlorperazine Q6H PRN, prochlorperazine Q6H PRN, senna/docusate BID PRN, sodium bicarbonate 1 mEq/mL IVPB (max conc) PRN (Defect Repairer Glassware from Rx), sod ium chloride 0.9 % TKO infusion PRN, sodium chloride 0.9% irrigation bottle PRN Medications Prior to Admission Medication Sig Dispense Refill Last Dose acetaminophen (TYLENOL) 325 mg tablet Take two tablets by mouth every 6 hour s as needed. Max dose of 4000 mg daily 30 tablet 0 Taking allopurinol (ZYLOPRIM) 300 mg tablet Take one tablet by mouth daily. Take food. 90 tablet 3 Taking apixaban (ELIQUIS) 5 mg tablet Take 5 mg by mouth twice daily. Taking aspirin EC 81 mg tablet Take 81 mg by mouth daily. Take with food. Taking atorvastatin (LIPITOR) 40 mg tablet Take one tablet by mouth daily. 90 table t 3 Taking clopiDOGrel (PLAVIX) 75 mg tablet Take 75 mg by mouth daily. Taking cyclobenzaprine (FLEXERIL) 10 mg tablet Take 10 mg by mouth three times elham y as needed. Taking diltiazem CD (CARDIZEM CD) 240 mg capsule Take one capsule by mouth daily. 3 0 capsule 1 Taking docusate (COLACE) 100 mg capsule Take one capsule by mouth twice daily. 180 capsule 3 Taking fentaNYL (DURAGESIC) 25 mcg/hr patch Apply one patch to top of skin as direc ignacio every 72 hours 10 patch 0 Taking gabapentin (NEURONTIN) 300 mg capsule Take 300 mg by mouth every 8 hours. Taking melatonin 5 mg tab Take one tablet by mouth at bedtime as needed. 30 tablet 0 Taking metFORMIN (GLUCOPHAGE) 500 mg tablet Take 500 mg by mouth twice daily with m eals. Taking metoprolol tartrate (LOPRESSOR) 50 mg tablet Take 1.5 tablets by mouth twice daily. (Patient taking differently: Take 100 mg by mouth twice daily.) 90 tablet 1 Taking Multivitamins with Fluoride (MULTI-VITAMIN PO) Take 1 tablet by mouth daily. Taking ondansetron (ZOFRAN) 4 mg tablet Take one tablet by mouth every 8 hours as n eeded for Nausea. 15 tablet 0 Taking oxyCODONE (ROXICODONE, OXY-IR) 5 mg tablet Take one tablet to two tablets by mouth every 3 hours as needed 90 tablet [address] (PROTONIX) 40 mg tablet Take 40 mg by mouth daily. Taking polyethylene glycol 3350 (MIRALAX) 17 g packet Take one packet by mouth twic e daily. Indications: constipation 12 each 0 Taking senna/docusate (SENOKOT-S) 8.6/50 mg tablet Take one tablet by mouth twice d aily. 60 tablet 0 Taking traMADol (ULTRAM) 50 mg tablet Take 50 mg by mouth every 6 hours as needed f or Pain. Taking zolpidem (AMBIEN) 10 mg tablet Take 10 mg by mouth at bedtime as needed for Sleep. Taking Allergies No Known Allergies Objective Vital Signs: Last Filed Vital Signs: 24 Karuna r Range BP: 113/71 (06/10 510) Temp: 36.3 C (97.4 F) (06/10 510) Pulse: 66 (06/10 510) Respirations: 18 PER MINUTE (06/10 510) SpO2: 98 % (06/10 510) BP: (97-116)/(67-76) Temp: [36.3 C (97.4 F)-36.8 C (98.3 F)] Pulse: [59-80] Respirations: [16 PER MINUTE-18 PER MINUTE] SpO2: [96 %-100 %] Intensity Pain Scale (Self Report): 6 (06/09/19 1847) Vitals: 06/08/19 0955 06/08/19 1617 06/09/19 0905 Weight: 92.1 kg (203 lb) 90.3 kg (199 lb) 90.4 kg (199 lb 3.2 oz) Intake/Output Summary: (Last 24 hours) Intake/Output Summary (Last 24 hours) at 06/10/2019 0720 Last data filed at 06/10/2019 0712 Gross per 24 hour Intake 898 ml Output 2875 ml Net -1977 ml Stool Occurrence: 0 Physical Exam Physical Exam Constitutional: He is oriented to person, place, and time and well-developed, we ll-nourished, and in no distress. He appears not lethargic. No distress. HENT: Head: Normocephalic and atraumatic. Right Ear: External ear normal. Left Ear: External ear normal. Nose: Nose normal. Mouth/Throat: Oropharynx is clear and moist. No oropharyngeal exudate. Eyes: Pupils are equal, round, and reactive to light. Conjunctivae and EOM are n ormal. Right eye exhibits no discharge. Left eye exhibits no discharge. No scler al icterus. Neck: Normal range of motion. Neck supple. Cardiovascular: Intact distal pulses. An irregular rhythm present. Pulmonary/Chest: Effort normal and breath sounds normal. No accessory muscle usa ge. No respiratory distress. He has no wheezes. He has no rales. He exhibits no tenderness. Abdominal: Soft. Bowel sounds are normal. He exhibits no distension. There is no tenderness. Musculoskeletal: Normal range of motion. He exhibits edema (lower extremity steve a, mainly below ankles R> L). He exhibits no tenderness. Neurological: He is alert and oriented to person, place, and time. He appears no t lethargic. No cranial nerve deficit. Skin: Skin is warm and dry. No laceration and no rash noted. No cyanosis or eryt fer. Psychiatric: Mood, affect and judgment normal. Nursing note and vitals reviewed. Lab Review Hematology: Lab Results Component Value Date HGB 8.9 06/10/2019 HCT 28.0 06/10/2019 PLTCT 325 06/10/2019 WBC 2.7 06/10/2019 NEUT 68 06/10/2019 ANC 1.80 06/10/2019 LYMPH 16 06/07/2019 ALC 0.70 06/10/2019 GANESH 2 06/10/2019 AMC 0.00 06/10/2019 ABC 0.00 06/10/2019 MCV 89.7 06/10/2019 MCHC 31.7 06/10/2019 MPV 6.3 06/10/2019 RDW 21.1 06/10/2019 , Coagulation: No results found for: PT, PTT, INR, General Chemistry: Lab Results Component Value Date NA 139 06/10/2019 K 4.0 06/10/2019 CL 101 06/10/2019 GAP 5 06/10/2019 BUN 16 06/10/2019 CR 0.56 06/10/2019 GLU 121 06/10/2019 CA 7.7 06/10/2019 ALBUMIN 3.2 06/10/2019 OBSCA 1.18 04/26/2019 MG 1.9 06/10/2019 TOTBILI 0.3 06/10/2019 , Mg and PO4: Lab Results Component Value Date MG 1.9 06/10/2019 and Pertinent labs reviewed Point of Care Testing (Last 24 hours) Glucose: (!) 121 (06/10/19 0320) POC Glucose (Download): (!) 167 (06/09/19 486) Urine Dipstick Urine pH: 7.5 (06/09/192256) Urine Dipstick Lot #: [id number] (06/09/192002) Radiology and other Diagnostics Review: Pertinent radiology reviewed. Traci Mcdaniel MD Internal Medicine PGY-1 Pager: [phone], Available on voalte * Damaris Carter - 06/09/2019 1:31 PM CDT CLINICAL NUTRITION Clinical Nutrition Assessment Summary NAME:Refugio Lopez :1960 AGE: 59 y.o. ADMISSION DATE: 06/05/2019 DAYS ADMITTED: LOS: 4 days Nutrition Assessment of Patient: BMI Categories Adult: Over Weight: 25-29.9 Unintentional Weight Loss: 7.5% in 3 months (significant)(from 215lb documented 03/17/19) Malnutrition Assessment: Does not meet criteria Current Oral Intake: Adequate Estimated Calorie Needs: 2555 (30 kcal/kg desired body weight) Estimated Protein Needs: 102-128 (1.2-1.5 g/kg desired body weight) Oral Diet Order: Regular Oral Supplement: Boost plus, TID Comments: 59yoM with CAD, T2DM, HTN, hepatitis C, afib, bilateral PE and lower extremity D VT, HFrEF, HLD, DLBCL, admitted for planned chemotherapy of high dose methotrexa te cycle 2. Met with pt at bedside. He reports good appetite, but says this is i mproved from baseline and he's struggled with poor appetite previously. Cites 26 0lb as UBW at beginning of 2019, now 200lb (23% loss x9 months). Denies N/V/D/C. Reports typical daily intake of small frequent meals/snacks- "not always healthy food"- and 1-2 Ensure/day. Denies food allergies or intolerances. No noted fat or muscle wasting. No noted pressure ulcers. BG range 174-416 mg/dL, with insul in. Will continue to follow. Recommendation: Continue regular diet. In setting of methotrexate, rec check folate and replete with 1 mg/day folic acid. Given hx of deficiency, rec check 25(OH) vitamin D, if deficient replete with 50,000 international units ergocalciferol weekly x8-12 w eeks then maintenance 1,000 international units cholecalciferol daily. Intervention / Plan: Encouraged small, frequent meals with focus on protein and use of oral supplemen ts PRN Monitor adequacy and tolerance of PO intake Monitor weights, GI function, labs, meds Nutrition Diagnosis: Increased nutrient needs, specify:(kcal, protein) Etiology: DLBCL Signs & Symptoms: hypermetabolism associated with cancer/chemo Goals: Patient to consume >75% of meals/supplements Time Frame: Within 72 hours Prevent further weight loss Time Frame: Throughout stay Damaris Carter RDN, Voalte [phone] [id number] * Austin Walsh MD - 06/09/2019 10:16 AM CDT Cardiology Progress Note Today's Date: 06/09/2019 Name: Refugio Lopez Admission Date: 06/05/2019 LOS: 4 days Assessment/Plan: Principal Problem: Diffuse large B cell lymphoma (HCC) Active Cardiac Problems: Paroxysmal Atrial fibrillation (HCC) Heart failure with reduced ejection fraction (HCC) CAD (coronary artery disease) s/p PCI in 2014 and PCI to RCA 05/15/19 Essential hypertension DM (diabetes mellitus) (HCC) Pulmonar embolism s/p catheter directed TPA Other active medical problems: Lytic bone lesions on xray Chronic hepatitis C (HCC) Back pain Dyslipidemia DLBCL (diffuse large B cell lymphoma) (HCC) is a pleasant 59 y.o. male with past medical history significant for C AD s/p stent placement in 2014 (unknown anatomy), type 2 diabetes mellitus, HTN, hepatitis C s/p curative treatment, admission to [facility] in [place] 05/14 - 05/18/19 for atrial fibrillation with RVR, diagnosed with bilateral PEs s/p tiago ter directed thrombolysis and lower extremity DVTs. He was also diagnosed with a n RCA lesion and underwent PCI and stent placement to RCA. He was started on met oprolol tartrate and diltiazem for rate control and discharged. Atrial fibrillat ion was difficult to rate control despite high doses of AV alberto blocking agents . He converted to sinus rhythm spontaneously on Saturday and maintains sinus rhy thm since then Atrial fibrillation: -patient has been in sinus rhythm since Saturday -c/w amiodarone; once 24 hours load switch to PO at time of discharge, could ini tiate a p.o. amiodarone taper of 400 mg twice daily for a week followed by 400 m g daily for 1 week, and finally 200 mg daily for maintenance therapy. -please lower lopressor to 75 mg q12h given that HR has significantly decreased with initiation of amiodarone. May need to decrease even more. Target HR in the 60s at rest. -diltiazem has been d/saúl due to low EF and is contraindicated -continue dual antiplatelet therapy plus apixaban for anticoagulation until 06/15, on 06/16/19 the patient can stop taking aspirin and remain on plavix and api xaban given recent PCI of the RCA -maintain K>4, Mg>2 CAD: -no mention of ischemic symptoms -c/w triple therapy up until the end of the month, as described above -c/w atorvastatin 40 mg nightly Ischemic CM: -patient with EF of 30%, has been low since previously -no need for invasive assessment at this time of coronary anatomy -c/w lopressor 75 mg q12h, once target HR is achieved can switch to Toprol XL -would start losartan 25 mg daily for ICM -may experience some improvement with maintenance of sinus rhythm. -c/w IV diuresis to reach euvolemic state Will continue to follow Austin Walsh PGY5 Fellow in Cardiovascular diseases Pager number: [phone] Patient discussed with , Cardiology Attending __ Subjective: Refugio Lopez is a 59 y.o. male. Overnight Events:No new events noted. The patient denies palpitations, dyspnea, orthopnea, PND overnight. He is maintainin g sinus rhythm on amiodarone Review of Systems: A 14 point review of systems was negative except for: Cardiovascular: positive f or lower extremity edema Objective: Medications: Scheduled Meds: allopurinol (ZYLOPRIM) tablet 300 mg 300 mg Oral QDAY apixaban (ELIQUIS) tablet 5 mg 5 mg Oral BID aspirin EC tablet 81 mg 81 mg Oral QDAY atorvastatin (LIPITOR) tablet 40 mg 40 mg Oral QDAY clopiDOGrel (PLAVIX) tablet 75 mg 75 mg Oral QDAY fentaNYL (DURAGESIC) 25 mcg/hr patch 1 patch 1 patch Transdermal Q72H* gabapentin (NEURONTIN) capsule 300 mg 300 mg Oral Q8H* insulin aspart U-100 (NOVOLOG FLEXPEN) injection PEN 0-12 Units 0-12 Units Subcu taneous ACHS (22) leucovorin calcium injection 50 mg 50 mg Intravenous Q6H* metoprolol tartrate (LOPRESSOR) tablet 100 mg 100 mg Oral BID ondansetron (ZOFRAN) tablet 16 mg 16 mg Oral Q24H* Continuous Infusions: amiodarone (CORDARONE) 360 mg in dextrose, iso-osm 200 mL infusion 0.51 mg/m in (06/09/19 0454) dextrose 5% (D5W) with sodium bicarbonate 150 mEq 1,150 mL IV infusion 75 mL /hr at 06/08/19 1702 PRN and Respiratory Meds:alteplase PRN (Defect Repairer Glassware from Rx), cyclobenzaprine TID DE N, docusate BID PRN, LORazepam (ATIVAN) injection Q6H PRN, LORazepam Q6H PRN, melatonin QHS PRN, ondansetron Q8H PRN, oxyCODONE Q3H PRN, polyethylene glycol 3 350 BID PRN, prochlorperazine Q6H PRN, prochlorperazine Q6H PRN, senna/docusate BID PRN, sodium bicarbonate 1 mEq/mL IVPB (max conc) PRN (Defect Repairer Glassware from Rx), sod ium chloride 0.9 % TKO infusion PRN, sodium chloride 0.9% irrigation bottle PRN Vital Signs: Last Filed Vital Signs: 24 Hour Range BP: 114/74 (06/09 756) Temp: 36.3 C (97.4 F) (06/09 756) Pulse: 65 (06/09 0835) Respirations: 18 PER MINUTE (06/09 756) SpO2: 96 % (06/09 756) BP: (110-118)/(69-83) Temp: [36.3 C (97.3 F)-36.6 C (97.9 F)] Pulse: [64-97] Respirations: [14 PER MINUTE-18 PER MINUTE] SpO2: [95 %-98 %] Intensity Pain Scale (Self Report): 7 Vitals: 06/08/19 0955 06/08/19 1617 06/09/19 0905 Weight: 92.1 kg (203 lb) 90.3 kg (199 lb) 90.4 kg (199 lb 3.2 oz) Intake/Output Summary: (Last 24 hours) Intake/Output Summary (Last 24 hours) at 06/09/2019 1016 Last data filed at 06/09/2019 0855 Gross per 24 hour Intake 1460 ml Output 5475 ml Net -4015 ml Physical Exam: General Appearance: awake, alert, no apparent distress Head: normocephalic, atraumatic Eyes: conjunctivae and lids normal, pupils are equal and round Pulmonary: no increase in work of breathing, trace bibasilar crackles, no rales or rhonchi, no wheezing Cardiovascular: regular rate and rhythm, normal S1, S2, no murmurs, rubs or gall ops, 1+ pitting lower extremity Abdomen: soft, non-tender, no masses, bowel sounds normal Skin: warm, dry, rashes or lesions Neurologic Exam: neurological assessment grossly intact Laboratory Review: 24-hour labs: Results for orders placed or performed during the hospital encounter of 06/05/19 (from the past 24 hour(s)) POC GLUCOSE Collection Time: 06/08/19 11:55 AM Result Value Ref Range Glucose, POC 355 (H) 70 - 100 MG/DL METHOTREXATE Collection Time: 06/08/19 5:00 PM Result Value Ref Range Methotrexate 3.52 MCMOL/L BASIC METABOLIC PANEL Collection Time: 06/08/19 5:00 PM Result Value Ref Range Sodium 132 (L) 137 - 147 MMOL/L Potassium 3.6 3.5 - 5.1 MMOL/L Chloride 91 (L) 98 - 110 MMOL/L CO2 28 21 - 30 MMOL/L Anion Gap 13 (H) 3 - 12 Glucose 416 (H) 70 - 100 MG/DL Blood Urea Nitrogen 10 7 - 25 MG/DL Creatinine 0.43 0.4 - 1.24 MG/DL Calcium 7.8 (L) 8.5 - 10.6 MG/DL eGFR Non >60 >60 mL/min eGFR >60 >60 mL/min MAGNESIUM Collection Time: 06/08/19 5:00 PM Result Value Ref Range Magnesium 1.8 1.6 - 2.6 mg/dL POC GLUCOSE Collection Time: 06/08/19 6:41 PM Result Value Ref Range Glucose, POC 166 (H) 70 - 100 MG/DL POC GLUCOSE Collection Time: 06/08/19 9:58 PM Result Value Ref Range Glucose, POC 246 (H) 70 - 100 MG/DL CBC AND DIFF CELLULAR THERAPEUTICS Collection Time: 06/09/19 4:45 AM Result Value Ref Range White Blood Cells 4.3 (L) 4.5 - 11.0 K/UL RBC 2.85 (L) 4.4 - 5.5 M/UL Hemoglobin 8.4 (L) 13.5 - 16.5 GM/DL Hematocrit 25.4 (L) 40 - 50 % MCV 89.2 80 - 100 FL MCH 29.4 26 - 34 PG MCHC 33.0 32.0 - 36.0 G/DL RDW 21.0 (H) 11 - 15 % Platelet Count 337 150 - 400 K/UL MPV 6.6 (L) 7 - 11 FL Neutrophils 82 (H) 41 - 77 % Lymphocytes 10 (L) 24 - 44 % Monocytes 8 4 - 12 % Eosinophils 0 0 - 5 % Basophils 0 0 - 2 % Absolute Neutrophil Count 3.50 1.8 - 7.0 K/UL Absolute Lymph Count 0.40 (L) 1.0 - 4.8 K/UL Absolute Monocyte Count 0.30 0 - 0.80 K/UL Absolute Eosinophil Count 0.00 0 - 0.45 K/UL Absolute Basophil Count 0.00 0 - 0.20 K/UL COMPREHENSIVE METABOLIC PANEL CELLULAR THERAPEUTICS Collection Time: 06/09/19 4:45 AM Result Value Ref Range Sodium 135 (L) 137 - 147 MMOL/L Potassium 4.0 3.5 - 5.1 MMOL/L Chloride 97 (L) 98 - 110 MMOL/L Glucose 328 (H) 70 - 100 MG/DL Blood Urea Nitrogen 13 7 - 25 MG/DL Creatinine 0.47 0.4 - 1.24 MG/DL Calcium 7.7 (L) 8.5 - 10.6 MG/DL Total Protein 5.3 (L) 6.0 - 8.0 G/DL Total Bilirubin 0.4 0.3 - 1.2 MG/DL Albumin 3.2 (L) 3.5 - 5.0 G/DL Alk Phosphatase 164 (H) 25 - 110 U/L AST (SGOT) 11 7 - 40 U/L CO2 30 21 - 30 MMOL/L ALT (SGPT) 6 (L) 7 - 56 U/L Anion Gap 8 3 - 12 eGFR Non >60 >60 mL/min eGFR >60 >60 mL/min MAGNESIUM CELLULAR THERAPEUTICS Collection Time: 06/09/19 4:45 AM Result Value Ref Range Magnesium 2.1 1.6 - 2.6 mg/dL PHOSPHORUS CELLULAR THERAPEUTICS Collection Time: 06/09/19 4:45 AM Result Value Ref Range Phosphorus 3.5 2.0 - 4.5 MG/DL URIC ACID Collection Time: 06/09/19 4:45 AM Result Value Ref Range Uric Acid 4.5 4.0 - 8.0 MG/DL LDH-LACTATE DEHYDROGENASE Collection Time: 06/09/19 4:45 AM Result Value Ref Range Lactate Dehydrogenase 285 (H) 100 - 210 U/L METHOTREXATE Collection Time: 06/09/19 4:45 AM Result Value Ref Range Methotrexate 0.64 MCMOL/L POC GLUCOSE Collection Time: 06/09/19 7:58 AM Result Value Ref Range Glucose, POC 183 (H) 70 - 100 MG/DL Point of Care Testing: (Last 24 hours): Glucose: (!) 328 (06/09/19 2560) POC Glucose (Download): (!) 183 (06/09/19 5291) Urine Dipstick Urine pH: 7.5 (06/09/19 0834) Urine Dipstick Lot #: [id number] (06/08/19 1127) pH (Litmus Test) Urine pH: 7.5 (06/09/19 07) pH Lot #: [id number] (06/09/19699) Cardiographics: ECG: atrial fibrillation with RVR at a rate of 120bpm, possible old septal myoca rdial infarction, poor R wave progression Chest X-Ray: no pulmonary edema, mild bibasilar atelectasis or scarring Austin Walsh MD Associated attestation - Adelita Whaley MD - 06/09/2019 11:17 PM CDT Cardiology Staff Physician Attestation I have personally interviewed and examined the patient. I have reviewed the [facility] record, pertinent imaging / laboratory studies, and all pertinent medical d ocumentation including the history, physical, and impression. I agree with the jointly formulated treatment plan as outlined by the weight analyst., Patient in normal sinus rhythm on antiarrhythmic therapy amiodarone with plans f or oral taper as outpatient. Plans to continue further optimization of guidelin e dose of medical therapy given his ischemic cardiomyopathy with severely reduce d left ventricular ejection fraction. Tentative plans to transition him over to Toprol XL from metoprolol tartrate. Addition of losartan 25 mg today with like ly plans to initiate Aldactone 12.5 versus 25 mg daily for completion of GDMT. H igh intensity statin therapy for secondary prevention of CAD. Currently on TRIPL E therapy for hx of recent PCI intervention and AFIB with plans to de-escalate t o NOAC/Plavix 06/15/19. Continue IV diuresis for pursuit of euvolemia. Addnendum 06/09/19 10:56 pm Incidental findings of Pseudoaneurysms with plans to pursue thrombin injection . Holding anticoagulation. Carlton Whaley MD [facility] Cardiology Pager [phone] * Erik Moreland DO - 06/09/2019 7:42 AM CDT General Progress Note Name: Refugio Tana Carmencita Today's Date: 06/09/2019 Admission Date: 06/05/2019 LOS: 4 days Assessment/Plan: Principal Problem: Diffuse large B cell lymphoma (HCC) Active Problems: Lytic bone lesions on xray Essential hypertension DM (diabetes mellitus) (HCC) Chronic hepatitis C (HCC) Cardiomyopathy (HCC) CAD (coronary artery disease) Back pain Dyslipidemia Atrial fibrillation (HCC) Pulmonary embolus (HCC) Heart failure with reduced ejection fraction (HCC) DLBCL (diffuse large B cell lymphoma) (HCC) Refugio Lopez is a 59 y.o. 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 DLBCL withBulkySpinal Cord Involvements/p Laminectomy and Decompression an d Arthrodesis Anemia -patient of Dr. Cueva - Progressive back [...] , germinal center type, with necrosis - Dex 40mg 04/24-04/29 - Rituxan 04/25 -C-Myc negative - S/p Cycle 1 HD MTX 05/21 - S/p Cycle 2 HD MTX 06/07 Plan: > Sodium bicarb as per protocol > Administer concentrated leucovorin until MTX levels <0.1 >Continueallopurinol > Oxycodone and fentanyl patch for pain mgmt > Transfuse prn Afib in Normal Sinus Rhythm - Reported ED visit for A fib in 2014 following NSTEMI and CARLY. Was reportedly o n anticoagulation until earlier this year -Hospitalization 05/14-05/18 for Afib with RVR among others. Discharged with Meto prolol and diltiazem - Follows with Dr. Ayesha Vega - Digoxin 1 dose received 06/06 Plan: > Continue Eliquis > Switch amiodarone IV to PO 400 mg BID > Lower metoprolol 75 mg BID > Discontinued diltiazem (06/08) > Monitor daily electrolytes, Mg, Phos; replete as needed CAD s/p CARLY 05/15/19 Heart Failure with Recovered Ejection Fraction - acute on chronic HLD -EF 35% in 2014 per OSH notes -Echo 04/27; EF 55%, mild LV dysfunction, madelaine-apical akinesis suggesting prior anterior GA, mild LA enlargement -CARLY placed in 2014 -CARLY placed 05/15/19.Patient had CP and mild elevation in troponin following ca theter directed thrombolysis, but no mention of an EKGor luminal abnormalities on angiogram -CXR 06/06: clear - Echo 06/09: EF 30% Plan > Continue Lipitor 40 mg qd > Continue ASA and Plavix > Cardio consulted, appreciate recs > Lasix 40 mg Dly - goal net negative > Added losartan 25 mg Dly Neutropenia - Resolved - 06/06: Neutro: 37 ANC 0.80 - Received one dose of Zarxio 06/06 Hx ofDVT/PE - Hospitalized for syncopal event at [facility] [address] 05/14-05/18. CTA demons trated "extensive bilateral pulmonary emboli." Because patient was hypotensive, he was taken to interventional cardiology who performed catheter directed thromb olysis with TPA -No signs of right heart failure on right heart cath. Discharged on 5 mg Eliquis BID Plan: > Continue Eliquis 5mg BID > US Right Lower Limb pending DM Type II - LOCATION DIRECTOR metformin - HA1c: 5.7 05/20/19 Plan > hold metformin, monitor glucose > continue LOCATION DIRECTOR gabapentin FEN: IVF per protocol, Lytes PRN, regular diet DVT Ppx: Eliquis Code Status: Full Code Dispo: Continue admission to hematology. Pt seen and discussed with Dr. Moreland. Traci Mcdaniel MD Internal Medicine PGY1 (Pager), Available on Voalte ATTESTATION I have personally performed a history and physical exam on the patient. I have d iscussed the case with the resident and concur with the resident documentation o f history, physical exam, assessment, and treatment plan unless otherwise noted. Staff name: Erik Moreland, DO Voalte or Pager [phone] Date:06/09/2019 Subjective Pt had 4 beats NSVT at 11 am today. Reports wanting to use the bathroom this mo rning but could not go. Frequentnly went to the bathroom yesterday due to lasix. Edema improved, but right leg continues to be more swollen than left. Tolerating diet. Review of Systems Constitutional: Negative for fever and malaise/fatigue. HENT: Negative. Negative for congestion, nosebleeds and sore throat. Eyes: Negative. Respiratory: Negative. Negative for cough, sputum production and shortness of b reath. Cardiovascular: Positive for leg swelling. Negative for chest pain and palpitati ons. Gastrointestinal: Negative. Negative for abdominal pain, constipation, diarrhea , nausea and vomiting. Genitourinary: Negative. Negative for dysuria. Musculoskeletal: Negative. Negative for falls. Skin: Negative. Negative for rash. Neurological: Negative. Negative for dizziness, sensory change, focal weakness and headaches. Endo/Heme/Allergies: Negative. Psychiatric/Behavioral: Negative. The patient is not nervous/anxious. Medications Scheduled Meds: allopurinol (ZYLOPRIM) tablet 300 mg 300 mg Oral QDAY apixaban (ELIQUIS) tablet 5 mg 5 mg Oral BID aspirin EC tablet 81 mg 81 mg Oral QDAY atorvastatin (LIPITOR) tablet 40 mg 40 mg Oral QDAY clopiDOGrel (PLAVIX) tablet 75 mg 75 mg Oral QDAY fentaNYL (DURAGESIC) 25 mcg/hr patch 1 patch 1 patch Transdermal Q72H* gabapentin (NEURONTIN) capsule 300 mg 300 mg Oral Q8H* insulin aspart U-100 (NOVOLOG FLEXPEN) injection PEN 0-6 Units 0-6 Units Subcuta neous ACHS (22) leucovorin calcium injection 50 mg 50 mg Intravenous Q6H* metoprolol tartrate (LOPRESSOR) tablet 100 mg 100 mg Oral BID ondansetron (ZOFRAN) tablet 16 mg 16 mg Oral Q24H* Continuous Infusions: amiodarone (CORDARONE) 360 mg in dextrose, iso-osm 200 mL infusion 0.51 mg/m in (06/09/19 0454) dextrose 5% (D5W) with sodium bicarbonate 150 mEq 1,150 mL IV infusion 75 mL /hr at 06/08/19 1702 PRN and Respiratory Meds:alteplase PRN (Defect Repairer Glassware from Rx), cyclobenzaprine TID DE N, docusate BID PRN, LORazepam (ATIVAN) injection Q6H PRN, LORazepam Q6H PRN, melatonin QHS PRN, ondansetron Q8H PRN, oxyCODONE Q3H PRN, polyethylene glycol 3 350 BID PRN, prochlorperazine Q6H PRN, prochlorperazine Q6H PRN, senna/docusate BID PRN, sodium bicarbonate 1 mEq/mL IVPB (max conc) PRN (Defect Repairer Glassware from Rx), sod ium chloride 0.9 % TKO infusion PRN, sodium chloride 0.9% irrigation bottle PRN Medications Prior to Admission Medication Sig Dispense Refill Last Dose acetaminophen (TYLENOL) 325 mg tablet Take two tablets by mouth every 6 hour s as needed. Max dose of 4000 mg daily 30 tablet 0 Taking allopurinol (ZYLOPRIM) 300 mg tablet Take one tablet by mouth daily. Take food. 90 tablet 3 Taking apixaban (ELIQUIS) 5 mg tablet Take 5 mg by mouth twice daily. Taking aspirin EC 81 mg tablet Take 81 mg by mouth daily. Take with food. Taking atorvastatin (LIPITOR) 40 mg tablet Take one tablet by mouth daily. 90 table t 3 Taking clopiDOGrel (PLAVIX) 75 mg tablet Take 75 mg by mouth daily. Taking cyclobenzaprine (FLEXERIL) 10 mg tablet Take 10 mg by mouth three times elham y as needed. Taking diltiazem CD (CARDIZEM CD) 240 mg capsule Take one capsule by mouth daily. 3 0 capsule 1 Taking docusate (COLACE) 100 mg capsule Take one capsule by mouth twice daily. 180 capsule 3 Taking fentaNYL (DURAGESIC) 25 mcg/hr patch Apply one patch to top of skin as direc ignacio every 72 hours 10 patch 0 Taking gabapentin (NEURONTIN) 300 mg capsule Take 300 mg by mouth every 8 hours. Taking melatonin 5 mg tab Take one tablet by mouth at bedtime as needed. 30 tablet 0 Taking metFORMIN (GLUCOPHAGE) 500 mg tablet Take 500 mg by mouth twice daily with m easonia. Taking metoprolol tartrate (LOPRESSOR) 50 mg tablet Take 1.5 tablets by mouth twice daily. (Patient taking differently: Take 100 mg by mouth twice daily.) 90 tablet 1 Taking Multivitamins with Fluoride (MULTI-VITAMIN PO) Take 1 tablet by mouth daily. Taking ondansetron (ZOFRAN) 4 mg tablet Take one tablet by mouth every 8 hours as n eeded for Nausea. 15 tablet 0 Taking oxyCODONE (ROXICODONE, OXY-IR) 5 mg tablet Take one tablet to two tablets by mouth every 3 hours as needed 90 tablet [address] (PROTONIX) 40 mg tablet Take 40 mg by mouth daily. Taking polyethylene glycol 3350 (MIRALAX) 17 g packet Take one packet by mouth twic e daily. Indications: constipation 12 each 0 Taking senna/docusate (SENOKOT-S) 8.6/50 mg tablet Take one tablet by mouth twice d aily. 60 tablet 0 Taking traMADol (ULTRAM) 50 mg tablet Take 50 mg by mouth every 6 hours as needed f or Pain. Taking zolpidem (AMBIEN) 10 mg tablet Take 10 mg by mouth at bedtime as needed for Sleep. Taking Allergies No Known Allergies Objective Vital Signs: Last Filed Vital Signs: 24 Karuna r Range BP: 112/83 (06/09 411) Temp: 36.3 C (97.4 F) (06/09 411) Pulse: 97 (06/09 411) Respirations: 16 PER MINUTE (09/24 0411) SpO2: 98 % (06/09 0411) Height: 185 cm (72.83") (06/08 0955) BP: (110-120)/(69-83) Temp: [36.3 C (97.3 F)-36.6 C (97.9 F)] Pulse: [69-97] Respirations: [14 PER MINUTE-18 PER MINUTE] SpO2: [95 %-100 %] Intensity Pain Scale (Self Report): 7 (06/08/192101) Vitals: 06/07/19 0610 06/08/19 0955 06/08/19 1617 Weight: 92.1 kg (203 lb 0.7 oz) 92.1 kg (203 lb) 90.3 kg (199 lb) Intake/Output Summary: (Last 24 hours) Intake/Output Summary (Last 24 hours) at 06/09/2019 0742 Last data filed at 06/09/2019 0351 Gross per 24 hour Intake 862 ml Output 5100 ml Net -4238 ml Stool Occurrence: 0 Physical Exam Physical Exam Constitutional: He is oriented to person, place, and time and well-developed, we ll-nourished, and in no distress. He appears not lethargic. No distress. HENT: Head: Normocephalic and atraumatic. Right Ear: External ear normal. Left Ear: External ear normal. Nose: Nose normal. Mouth/Throat: Oropharynx is clear and moist. No oropharyngeal exudate. Eyes: Pupils are equal, round, and reactive to light. Conjunctivae and EOM are n ormal. Right eye exhibits no discharge. Left eye exhibits no discharge. No scler al icterus. Neck: Normal range of motion. Neck supple. Cardiovascular: Intact distal pulses. An irregular rhythm present. Pulmonary/Chest: Effort normal and breath sounds normal. No accessory muscle usa ge. No respiratory distress. He has no wheezes. He has no rales. He exhibits no tenderness. Abdominal: Soft. Bowel sounds are normal. He exhibits no distension. There is no tenderness. Musculoskeletal: Normal range of motion. He exhibits edema (lower extremity steve a, mainly below ankles). He exhibits no tenderness. Neurological: He is alert and oriented to person, place, and time. He appears no t lethargic. No cranial nerve deficit. Skin: Skin is warm and dry. No laceration and no rash noted. No cyanosis or eryt fer. Psychiatric: Mood, affect and judgment normal. Nursing note and vitals reviewed. Lab Review Hematology: Lab Results Component Value Date HGB 8.4 06/09/2019 HCT 25.4 06/09/2019 PLTCT 337 06/09/2019 WBC 4.3 06/09/2019 NEUT 82 06/09/2019 ANC 3.50 06/09/2019 LYMPH 16 06/07/2019 ALC 0.40 06/09/2019 GANESH 8 06/09/2019 AMC 0.30 06/09/2019 ABC 0.00 06/09/2019 MCV 89.2 06/09/2019 MCHC 33.0 06/09/2019 MPV 6.6 06/09/2019 RDW 21.0 06/09/2019 , Coagulation: No results found for: PT, PTT, INR, General Chemistry: Lab Results Component Value Date NA 135 06/09/2019 K 4.0 06/09/2019 CL 97 06/09/2019 GAP 8 06/09/2019 BUN 13 06/09/2019 CR 0.47 06/09/2019 GLU 328 06/09/2019 CA 7.7 06/09/2019 ALBUMIN 3.2 06/09/2019 OBSCA 1.18 04/26/2019 MG 2.1 06/09/2019 TOTBILI 0.4 06/09/2019 , Mg and PO4: Lab Results Component Value Date MG 2.1 06/09/2019 and Pertinent labs reviewed Point of Care Testing (Last 24 hours) Glucose: (!) 328 (06/09/19 2028) POC Glucose (Download): (!) 246 (06/08/19 3408) Urine Dipstick Urine pH: 7.5 (06/09/19 0351) Urine Dipstick Lot #: [id number] (06/08/197) pH (Litmus Test) Urine pH: 7.5 (06/08/192029) Radiology and other Diagnostics Review: Pertinent radiology reviewed. Traci Mcdaniel MD Internal Medicine PGY-1 Pager: [phone], Available on voalte * Austin Walsh MD - 06/08/2019 8:32 AM CDT Cardiology Progress Note Today's Date: 06/08/2019 Name: Refugio Lopez Admission Date: 06/05/2019 LOS: 3 days Assessment/Plan: Principal Problem: Diffuse large B cell lymphoma (HCC) Active Cardiac Problems: Paroxysmal Atrial fibrillation (HCC) Heart failure with reduced ejection fraction (HCC) CAD (coronary artery disease) s/p PCI in 2014 and PCI to RCA 05/15/19 Essential hypertension DM (diabetes mellitus) (HCC) Pulmonar embolism s/p catheter directed TPA Other active medical problems: Lytic bone lesions on xray Chronic hepatitis C (HCC) Back pain Dyslipidemia DLBCL (diffuse large B cell lymphoma) (HCC) is a pleasant 59 y.o. male with past medical history significant for C AD s/p stent placement in 2014 (unknown anatomy), type 2 diabetes mellitus, HTN, hepatitis C s/p curative treatment, admission to [facility] in [place] 05/14 - 05/18/19 for atrial fibrillation with RVR, diagnosed with bilateral PEs s/p tiago ter directed thrombolysis and lower extremity DVTs. He was also diagnosed with a n RCA lesion and underwent PCI and stent placement to RCA. He was started on met oprolol tartrate and diltiazem for rate control and discharged. Atrial fibrillat ion was difficult to rate control despite high doses of AV alberto blocking agents . He converted to sinus rhythm spontaneously on Saturday and maintains sinus rhy thm since then - given rate control has been difficult to achieve despite high doses of AV natali l blockers it would be beneficial to attempt to maintain sinus rhythm with an an tiarrhythmic drug, we would recommend loading with amiodarone 1mg/min IV for 6 h ours followed by 0.5 mg/min IV for 24h followed by 400mg PO BID for 1 week, foll owed by 200mg PO daily. Amiodarone to be continued only during time of chemother apy and while patient is undergoing major stress. -digoxin would not be advisable in the longterm in a patient with likely inabil ity to tolerate PO in the near future - continue metoprolol and diltiazem at current doses - stop digoxin after starting amiodarone - continue dual antiplatelet therapy plus apixaban for anticoagulation until 05/19 , on 06/16/19 the patient can stop taking aspirin and remain on plavix and ap ixaban given recent PCI of the RCA - consider further diuresis based on symptoms, his fluid balance may improve spo ntaneously now that he is in sinus rhythm -f/U new echo today. Austin Walsh PGY5 Fellow in Cardiovascular diseases Pager number: [phone] Patient discussed with , Cardiology Attending __ Subjective: Refugio Lopez is a 59 y.o. male. Overnight Events:No new events noted. The patient denies palpitations, dyspnea, orthopnea, PND overnight. He is maintainin g sinus rhythm. Review of Systems: A 14 point review of systems was negative except for: Cardiovascular: positive f or lower extremity edema Objective: Medications: Scheduled Meds: allopurinol (ZYLOPRIM) tablet 300 mg 300 mg Oral QDAY apixaban (ELIQUIS) tablet 5 mg 5 mg Oral BID aspirin EC tablet 81 mg 81 mg Oral QDAY atorvastatin (LIPITOR) tablet 40 mg 40 mg Oral QDAY clopiDOGrel (PLAVIX) tablet 75 mg 75 mg Oral QDAY digoxin (LANOXIN) tablet 250 mcg 250 mcg Oral QDAY diltiazem CD (cardIZEM CD) capsule 240 mg 240 mg Oral QDAY fentaNYL (DURAGESIC) 25 mcg/hr patch 1 patch 1 patch Transdermal Q72H* gabapentin (NEURONTIN) capsule 300 mg 300 mg Oral Q8H* insulin aspart U-100 (NOVOLOG FLEXPEN) injection PEN 0-6 Units 0-6 Units Subcuta neous ACHS (22) leucovorin calcium injection 50 mg 50 mg Intravenous Q6H* magnesium sulfate 1 g/D5W 100 mL IVPB 1 g Intravenous ONCE metoprolol tartrate (LOPRESSOR) tablet 100 mg 100 mg Oral BID ondansetron (ZOFRAN) tablet 16 mg 16 mg Oral Q24H* Continuous Infusions: dextrose 5% (D5W) with sodium bicarbonate 150 mEq 1,150 mL IV infusion 75 mL /hr at 06/07/19 2312 PRN and Respiratory Meds:alteplase PRN (Defect Repairer Glassware from Rx), cyclobenzaprine TID DE N, docusate BID PRN, LORazepam (ATIVAN) injection Q6H PRN, LORazepam Q6H PRN, melatonin QHS PRN, ondansetron Q8H PRN, oxyCODONE Q3H PRN, polyethylene glycol 3 350 BID PRN, prochlorperazine Q6H PRN, prochlorperazine Q6H PRN, senna/docusate BID PRN, sodium bicarbonate 1 mEq/mL IVPB (max conc) PRN (Defect Repairer Glassware from Rx), sod ium chloride 0.9 % TKO infusion PRN, sodium chloride 0.9% irrigation bottle PRN Vital Signs: Last Filed Vital Signs: 24 Hour Range BP: 120/74 (06/08 810) Temp: 36.5 C (97.7 F) (06/08 810) Pulse: 77 (06/08 810) Respirations: 18 PER MINUTE (06/08 810) SpO2: 100 % (06/08 810) BP: (94-123)/(42-84) Temp: [36.3 C (97.4 F)-36.7 C (98 F)] Pulse: [77-97] Respirations: [18 PER MINUTE] SpO2: [95 %-100 %] Intensity Pain Scale (Self Report): 6 Vitals: 06/05/19 1535 06/07/19 0610 Weight: 91.6 kg (202 lb) 92.1 kg (203 lb 0.7 oz) Intake/Output Summary: (Last 24 hours) Intake/Output Summary (Last 24 hours) at 06/08/2019 0832 Last data filed at 06/08/2019 0656 Gross per 24 hour Intake 2964 ml Output 5150 ml Net -2186 ml Physical Exam: General Appearance: awake, alert, no apparent distress Head: normocephalic, atraumatic Eyes: conjunctivae and lids normal, pupils are equal and round Pulmonary: no increase in work of breathing, trace bibasilar crackles, no rales or rhonchi, no wheezing Cardiovascular: regular rate and rhythm, normal S1, S2, no murmurs, rubs or gall ops, 1+ pitting lower extremity Abdomen: soft, non-tender, no masses, bowel sounds normal Skin: warm, dry, rashes or lesions Neurologic Exam: neurological assessment grossly intact Laboratory Review: 24-hour labs: Results for orders placed or performed during the hospital encounter of 06/05/19 (from the past 24 hour(s)) POC GLUCOSE Collection Time: 06/07/19 11:15 AM Result Value Ref Range Glucose, POC 223 (H) 70 - 100 MG/DL BASIC METABOLIC PANEL Collection Time: 06/07/19 12:09 PM Result Value Ref Range Sodium 137 137 - 147 MMOL/L Potassium 3.9 3.5 - 5.1 MMOL/L Chloride 102 98 - 110 MMOL/L CO2 30 21 - 30 MMOL/L Anion Gap 5 3 - 12 Glucose 189 (H) 70 - 100 MG/DL Blood Urea Nitrogen 7 7 - 25 MG/DL Creatinine 0.44 0.4 - 1.24 MG/DL Calcium 8.2 (L) 8.5 - 10.6 MG/DL eGFR Non >60 >60 mL/min eGFR >60 >60 mL/min MAGNESIUM Collection Time: 06/07/19 12:09 PM Result Value Ref Range Magnesium 1.7 1.6 - 2.6 mg/dL POC GLUCOSE Collection Time: 06/07/19 6:05 PM Result Value Ref Range Glucose, POC 205 (H) 70 - 100 MG/DL POC GLUCOSE Collection Time: 06/07/19 11:08 PM Result Value Ref Range Glucose, POC 374 (H) 70 - 100 MG/DL POC GLUCOSE Collection Time: 06/08/19 1:43 AM Result Value Ref Range Glucose, POC 322 (H) 70 - 100 MG/DL POC GLUCOSE Collection Time: 06/08/19 4:26 AM Result Value Ref Range Glucose, POC 285 (H) 70 - 100 MG/DL CBC AND DIFF CELLULAR THERAPEUTICS Collection Time: 06/08/19 5:54 AM Result Value Ref Range White Blood Cells 3.5 (L) 4.5 - 11.0 K/UL RBC 3.04 (L) 4.4 - 5.5 M/UL Hemoglobin 8.9 (L) 13.5 - 16.5 GM/DL Hematocrit 27.0 (L) 40 - 50 % MCV 88.7 80 - 100 FL MCH 29.2 26 - 34 PG MCHC 32.9 32.0 - 36.0 G/DL RDW 21.2 (H) 11 - 15 % Platelet Count 384 150 - 400 K/UL MPV 6.4 (L) 7 - 11 FL Neutrophils 82 (H) 41 - 77 % Lymphocytes 11 (L) 24 - 44 % Monocytes 6 4 - 12 % Eosinophils 0 0 - 5 % Basophils 1 0 - 2 % Absolute Neutrophil Count 2.90 1.8 - 7.0 K/UL Absolute Lymph Count 0.40 (L) 1.0 - 4.8 K/UL Absolute Monocyte Count 0.20 0 - 0.80 K/UL Absolute Eosinophil Count 0.00 0 - 0.45 K/UL Absolute Basophil Count 0.00 0 - 0.20 K/UL COMPREHENSIVE METABOLIC PANEL CELLULAR THERAPEUTICS Collection Time: 06/08/19 5:54 AM Result Value Ref Range Sodium 138 137 - 147 MMOL/L Potassium 4.0 3.5 - 5.1 MMOL/L Chloride 100 98 - 110 MMOL/L Glucose 238 (H) 70 - 100 MG/DL Blood Urea Nitrogen 9 7 - 25 MG/DL Creatinine 0.40 0.4 - 1.24 MG/DL Calcium 8.7 8.5 - 10.6 MG/DL Total Protein 5.9 (L) 6.0 - 8.0 G/DL Total Bilirubin 0.6 0.3 - 1.2 MG/DL Albumin 3.2 (L) 3.5 - 5.0 G/DL Alk Phosphatase 161 (H) 25 - 110 U/L AST (SGOT) 12 7 - 40 U/L CO2 31 (H) 21 - 30 MMOL/L ALT (SGPT) 8 7 - 56 U/L Anion Gap 7 3 - 12 eGFR Non >60 >60 mL/min eGFR >60 >60 mL/min MAGNESIUM CELLULAR THERAPEUTICS Collection Time: 06/08/19 5:54 AM Result Value Ref Range Magnesium 1.9 1.6 - 2.6 mg/dL PHOSPHORUS CELLULAR THERAPEUTICS Collection Time: 06/08/19 5:54 AM Result Value Ref Range Phosphorus 3.3 2.0 - 4.5 MG/DL URIC ACID Collection Time: 06/08/19 5:54 AM Result Value Ref Range Uric Acid 4.1 4.0 - 8.0 MG/DL LDH-LACTATE DEHYDROGENASE Collection Time: 06/08/19 5:54 AM Result Value Ref Range Lactate Dehydrogenase 286 (H) 100 - 210 U/L POC GLUCOSE Collection Time: 06/08/19 8:15 AM Result Value Ref Range Glucose, POC 245 (H) 70 - 100 MG/DL Point of Care Testing: (Last 24 hours): Glucose: (!) 238 (06/08/19 0554) POC Glucose (Download): (!) 245 (06/08/19 0815) pH (Litmus Test) Urine pH: 7.5 (06/08/19 0657) Cardiographics: ECG: atrial fibrillation with RVR at a rate of 120bpm, possible old septal myoca rdial infarction, poor R wave progression Echocardiogram: Not done, pending new echo today Chest X-Ray: no pulmonary edema, mild bibasilar atelectasis or scarring Austin Walsh MD Associated attestation - Adelita Whaley MD - 06/08/2019 3:06 PM CDT Cardiology Staff Physician Attestation I have personally interviewed and examined the patient. I have reviewed the med ical record, pertinent imaging / laboratory studies, and all pertinent medical d ocumentation including the history, physical, and impression. I agree with the jointly formulated treatment plan as outlined by the weight analyst, Dr. Natty gatica. Mr. Rosales is a pleasant 59-year-old gentleman with history of ischemic heart di sease/CAD status post PCI ~ 2014 to the LAD with a recent PCI to the RCA in 2018, history of mild left ventricular systolic dysfunction (EF 40 to 45%), history of type 2 diabetes, history of hypertension, history of hep C status pos t therapy who developed onset of atrial fibrillation with rapid ventricular resp onse as well as concomitant diagnosis of bilateral embolisms that is post cathet er recommend lysis. His hospitalization is been significant for the aforementioned rapid ventricular response on high-dose AV alberto agents requiring augmentation with digoxin thera py. Given the current clinical picture of acute illness related to his malignan cy, we will continue to recommend pursuit of intravenous therapy with amiodarone especially status post his recent conversion. He is on triple therapy via aspi rin, Plavix, and Eliquis 5 mg twice daily which fortunately he is tolerating thi s point. Review of telemetry overnight, there is been no recurrence of any atri al or ventricular ectopy or significant tachyarrhythmias of note. On exam, Mr. Sigala is a pleasant 59-year-old gentleman who is alert and oriente d x3. He is resting calmly in bed at approximately 35 to 40 degrees incline. O n exam however, there is evidence of slight elevation of JVP/HJR. There is trac e to 1+ bilateral lower extreme edema at the levels of the upper ankle. Further cardiovascular exam findings are notable for a normal S1 and S2. There is no S3 or S4 really appreciated. There is no evidence of bladder carotid bruits. Th ere is no murmur gallop of note. His lung ingram are slightly decreased at the bases however there is no pedro rales appreciated on exam. There is no wheezing or rhonchi. Neurologically he is grossly intact neuromotor sensory standpoint. His mood and cognition appear to be stable and intact. Plan: Given the complexity of his overall disease processes as well as other comorbid conditions would still consider pursuing amiodarone antiarrhythmic therapy. We will consider an initial IV load of amiodarone with transition to an oral regime n at discharge narrowing. Would like to pursue an ideal load of 10 g of amiodar one. If there is interval development of some slower heart rate/bradycardia can also look to de-escalate his overall AV alberto agents pacifically decreasing his dose of diltiazem first and leave the beta-ying on for secondary therapy/ant ianginal therapy related to his known CAD. The amiodarone course would be transient and very in a bridge through his curren t acute illness. At time of discharge, could initiate a p.o. amiodarone taper o f 400 mg twice daily for a week followed by 4 mg daily for 1 week, and finally 2 0 mg daily for maintenance therapy. Guarding his current triple therapy antiplatelet anticoagulation, plans would be to stop his aspirin June 15 of this year continue the Plavix and the apixa ban. The patient does have some evidence of volume overload and may benefit from a do se of IV Lasix of 20 to 40 mg x 1. He plans to follow with his hand knitter at time of discharge. Carlton Whaley MD [facility] Cardiology Pager [phone] Addendum 15:06 9/23/19: Repeat 2d echocardiogram with moderate reduction LVEF est 30-35%. Would proceed with amiodarone therapy for rhythm. Would discontinue Diltiazem AV alberto agent given negative inotrope characteristics. Will monitor response to d /c of diltiazem. Will look to transition his beta ying to Toprol XL +/- addition of losartan f or initiation of GDMT. Adelita Whaley II MD Cardiovascular Medicine [facility] Pager # [phone] * Erik Moreland, - 06/08/2019 7:42 AM CDT General Progress Note Name: Refugio Lopez Today's Date: 06/08/2019 Admission Date: 06/05/2019 LOS: 3 days Assessment/Plan: Principal Problem: Diffuse large B cell lymphoma (HCC) Active Problems: Lytic bone lesions on xray Essential hypertension DM (diabetes mellitus) (HCC) Chronic hepatitis C (HCC) Cardiomyopathy (HCC) CAD (coronary artery disease) Back pain Dyslipidemia Atrial fibrillation (HCC) Pulmonary embolus (HCC) Heart failure with reduced ejection fraction (HCC) DLBCL (diffuse large B cell lymphoma) (HCC) Refugio Lopez is a 59 y.o. 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 DLBCL withBulkySpinal Cord Involvements/p Laminectomy and Decompression an d Arthrodesis Anemia -patient of Dr. Cueva - Progressive back [...] , germinal center type, with necrosis - Dex 40mg 04/24-04/29 - Rituxan 04/25 -C-Myc negative - S/p Cycle 1 HD MTX 05/21 - S/p Cycle 2 HD MTX 06/07 Plan: > Sodium bicarb as per protocol > Administer concentrated leucovorin until MTX levels <0.1 >Continueallopurinol > Oxycodone and fentanyl patch for pain mgmt > Transfuse prn Afibw/ RVR - Reported ED visit for A fib in 2014 following NSTEMI and CARLY. Was reportedly o n anticoagulation until earlier this year -Hospitalization 05/14-05/18 for Afib with RVR among others. Discharged with Meto prolol and diltiazem - Follows with Dr. Ayesha Vega - Digoxin 1 dose received 06/06 Plan: > Continue LOCATION DIRECTOR diltiazem, metoprolol, Eliquis > Cardiology following - Start Amiodarone vs digoxin > Monitor daily electrolytes, Mg, Phos; replete as needed CAD s/p CARLY 05/15/19 Heart Failure with Recovered Ejection Fraction - acute on chronic HLD -EF 35% in 2014 per OSH notes -Echo 04/27; EF 55%, mild LV dysfunction, madelaine-apical akinesis suggesting prior anterior GA, mild LA enlargement -CARLY placed in 2014 -CARLY placed 05/15/19.Patient had CP and mild elevation in troponin following ca theter directed thrombolysis, but no mention of an EKGor luminal abnormalities on angiogram -CXR 06/06: clear Plan > Continue Lipitor 40 mg qd > Continue ASA and Plavix > Cardio consulted, appreciate recs > IV lasix prn - goal net negative Neutropenia - Resolved - 06/06: Neutro: 37 ANC 0.80 - Received one dose of Zarxio 06/06 Hx ofDVT/PE - Hospitalized for syncopal event at [facility] 05/14-05/18. CTA demons trated "extensive bilateral pulmonary emboli." Because patient was hypotensive, he was taken to interventional cardiology who performed catheter directed thromb olysis with TPA -No signs of right heart failure on right heart cath. Discharged on 5 mg Eliquis BID Plan: > Continue Eliquis 5mg BID DM Type II - LOCATION DIRECTOR metformin - HA1c: 5.7 05/20/19 Plan > hold metformin, monitor glucose > continue LOCATION DIRECTOR gabapentin FEN: IVF per protocol, Lytes PRN, regular diet DVT Ppx: Eliquis Code Status: Full Code Dispo: Continue admission to hematology. Pt seen and discussed with Dr. Moreland. Traci Mcdaniel MD Internal Medicine PGY1 (Pager), Available on Voalte ATTESTATION I have personally performed a history and physical exam on the patient. I have d iscussed the case with the resident and concur with the resident documentation o f history, physical exam, assessment, and treatment plan unless otherwise noted. Staff name: Erik Moreland, DO Voalte or Pager [phone] Date:06/08/2019 Subjective Overnight: minor interval of NSVT at 10 p.m., but converted to normal sinus rhyt hm. He feels better with the normal sinus, says he noticed it when his hands sto pped trembling. Edema improved. Tolerating diet. Review of Systems Constitutional: Negative for fever and malaise/fatigue. HENT: Negative. Negative for congestion, nosebleeds and sore throat. Eyes: Negative. Respiratory: Negative. Negative for cough, sputum production and shortness of b reath. Cardiovascular: Positive for leg swelling. Negative for chest pain and palpitati ons. Gastrointestinal: Negative. Negative for abdominal pain, constipation, diarrhea , nausea and vomiting. Genitourinary: Negative. Negative for dysuria. Musculoskeletal: Negative. Negative for falls. Skin: Negative. Negative for rash. Neurological: Negative. Negative for dizziness, sensory change, focal weakness and headaches. Endo/Heme/Allergies: Negative. Psychiatric/Behavioral: Negative. The patient is not nervous/anxious. Medications Scheduled Meds: allopurinol (ZYLOPRIM) tablet 300 mg 300 mg Oral QDAY apixaban (ELIQUIS) tablet 5 mg 5 mg Oral BID aspirin EC tablet 81 mg 81 mg Oral QDAY atorvastatin (LIPITOR) tablet 40 mg 40 mg Oral QDAY clopiDOGrel (PLAVIX) tablet 75 mg 75 mg Oral QDAY digoxin (LANOXIN) tablet 250 mcg 250 mcg Oral QDAY diltiazem CD (cardIZEM CD) capsule 240 mg 240 mg Oral QDAY fentaNYL (DURAGESIC) 25 mcg/hr patch 1 patch 1 patch Transdermal Q72H* gabapentin (NEURONTIN) capsule 300 mg 300 mg Oral Q8H* insulin aspart U-100 (NOVOLOG FLEXPEN) injection PEN 0-6 Units 0-6 Units Subcuta neous ACHS (22) leucovorin calcium injection 50 mg 50 mg Intravenous Q6H* magnesium sulfate 1 g/D5W 100 mL IVPB 1 g Intravenous ONCE metoprolol tartrate (LOPRESSOR) tablet 100 mg 100 mg Oral BID ondansetron (ZOFRAN) tablet 16 mg 16 mg Oral Q24H* Continuous Infusions: dextrose 5% (D5W) with sodium bicarbonate 150 mEq 1,150 mL IV infusion 75 mL /hr at 06/07/19 2312 PRN and Respiratory Meds:alteplase PRN (Defect Repairer Glassware from Rx), cyclobenzaprine TID DE N, docusate BID PRN, LORazepam (ATIVAN) injection Q6H PRN, LORazepam Q6H PRN, melatonin QHS PRN, ondansetron Q8H PRN, oxyCODONE Q3H PRN, polyethylene glycol 3 350 BID PRN, prochlorperazine Q6H PRN, prochlorperazine Q6H PRN, senna/docusate BID PRN, sodium bicarbonate 1 mEq/mL IVPB (max conc) PRN (Defect Repairer Glassware from Rx), sod ium chloride 0.9 % TKO infusion PRN, sodium chloride 0.9% irrigation bottle PRN Medications Prior to Admission Medication Sig Dispense Refill Last Dose acetaminophen (TYLENOL) 325 mg tablet Take two tablets by mouth every 6 hour s as needed. Max dose of 4000 mg daily 30 tablet 0 Taking allopurinol (ZYLOPRIM) 300 mg tablet Take one tablet by mouth daily. Take th food. 90 tablet 3 Taking apixaban (ELIQUIS) 5 mg tablet Take 5 mg by mouth twice daily. Taking aspirin EC 81 mg tablet Take 81 mg by mouth daily. Take with food. Taking atorvastatin (LIPITOR) 40 mg tablet Take one tablet by mouth daily. 90 table t 3 Taking clopiDOGrel (PLAVIX) 75 mg tablet Take 75 mg by mouth daily. Taking cyclobenzaprine (FLEXERIL) 10 mg tablet Take 10 mg by mouth three times elham y as needed. Taking diltiazem CD (CARDIZEM CD) 240 mg capsule Take one capsule by mouth daily. 3 0 capsule 1 Taking docusate (COLACE) 100 mg capsule Take one capsule by mouth twice daily. 180 capsule 3 Taking fentaNYL (DURAGESIC) 25 mcg/hr patch Apply one patch to top of skin as direc ignacio every 72 hours 10 patch 0 Taking gabapentin (NEURONTIN) 300 mg capsule Take 300 mg by mouth every 8 hours. Taking melatonin 5 mg tab Take one tablet by mouth at bedtime as needed. 30 tablet 0 Taking metFORMIN (GLUCOPHAGE) 500 mg tablet Take 500 mg by mouth twice daily with m nellie. Taking metoprolol tartrate (LOPRESSOR) 50 mg tablet Take 1.5 tablets by mouth twice daily. (Patient taking differently: Take 100 mg by mouth twice daily.) 90 tablet 1 Taking Multivitamins with Fluoride (MULTI-VITAMIN PO) Take 1 tablet by mouth daily. Taking ondansetron (ZOFRAN) 4 mg tablet Take one tablet by mouth every 8 hours as n eeded for Nausea. 15 tablet 0 Taking oxyCODONE (ROXICODONE, OXY-IR) 5 mg tablet Take one tablet to two tablets by mouth every 3 hours as needed 90 tablet [address] (PROTONIX) 40 mg tablet Take 40 mg by mouth daily. Taking polyethylene glycol 3350 (MIRALAX) 17 g packet Take one packet by mouth twic e daily. Indications: constipation 12 each 0 Taking senna/docusate (SENOKOT-S) 8.6/50 mg tablet Take one tablet by mouth twice d aily. 60 tablet 0 Taking traMADol (ULTRAM) 50 mg tablet Take 50 mg by mouth every 6 hours as needed f or Pain. Taking zolpidem (AMBIEN) 10 mg tablet Take 10 mg by mouth at bedtime as needed for Sleep. Taking Allergies No Known Allergies Objective Vital Signs: Last Filed Vital Signs: 24 Karuna r Range BP: 111/80 (06/08 428) Temp: 36.3 C (97.4 F) (06/08 428) Pulse: 79 (06/08 428) Respirations: 18 PER MINUTE (06/08 428) SpO2: 97 % (06/08 428) BP: (94-123)/(42-84) Temp: [36.3 C (97.4 F)-36.7 C (98 F)] Pulse: [79-121] Respirations: [18 PER MINUTE] SpO2: [95 %-97 %] Intensity Pain Scale (Self Report): 6 (06/07/19 2100) Vitals: 06/05/19 1535 06/07/19 0610 Weight: 91.6 kg (202 lb) 92.1 kg (203 lb 0.7 oz) Intake/Output Summary: (Last 24 hours) Intake/Output Summary (Last 24 hours) at 06/08/2019 0742 Last data filed at 06/08/2019 0656 Gross per 24 hour Intake 3224 ml Output 5500 ml Net -2276 ml Stool Occurrence: 0 Physical Exam Physical Exam Constitutional: He is oriented to person, place, and time and well-developed, we ll-nourished, and in no distress. He appears not lethargic. No distress. HENT: Head: Normocephalic and atraumatic. Right Ear: External ear normal. Left Ear: External ear normal. Nose: Nose normal. Mouth/Throat: Oropharynx is clear and moist. No oropharyngeal exudate. Eyes: Pupils are equal, round, and reactive to light. Conjunctivae and EOM are n ormal. Right eye exhibits no discharge. Left eye exhibits no discharge. No scler al icterus. Neck: Normal range of motion. Neck supple. Cardiovascular: Intact distal pulses. An irregular rhythm present. Pulmonary/Chest: Effort normal and breath sounds normal. No accessory muscle usa ge. No respiratory distress. He has no wheezes. He has no rales. He exhibits no tenderness. Abdominal: Soft. Bowel sounds are normal. He exhibits no distension. There is no tenderness. Musculoskeletal: Normal range of motion. He exhibits edema (lower extremity steve a, mainly below ankles). He exhibits no tenderness. Neurological: He is alert and oriented to person, place, and time. He appears no t lethargic. No cranial nerve deficit. Skin: Skin is warm and dry. No laceration and no rash noted. No cyanosis or eryt fer. Psychiatric: Mood, affect and judgment normal. Nursing note and vitals reviewed. Lab Review Hematology: Lab Results Component Value Date HGB 8.9 06/08/2019 HCT 27.0 06/08/2019 PLTCT 384 06/08/2019 WBC 3.5 06/08/2019 NEUT 82 06/08/2019 ANC 2.90 06/08/2019 LYMPH 16 06/07/2019 ALC 0.40 06/08/2019 GANESH 6 06/08/2019 AMC 0.20 06/08/2019 ABC 0.00 06/08/2019 MCV 88.7 06/08/2019 MCHC 32.9 06/08/2019 MPV 6.4 06/08/2019 RDW 21.2 06/08/2019 , Coagulation: No results found for: PT, PTT, INR, General Chemistry: Lab Results Component Value Date NA 138 06/08/2019 K 4.0 06/08/2019 CL 100 06/08/2019 GAP 7 06/08/2019 BUN 9 06/08/2019 CR 0.40 06/08/2019 GLU 238 06/08/2019 CA 8.7 06/08/2019 ALBUMIN 3.2 06/08/2019 OBSCA 1.18 04/26/2019 MG 1.9 06/08/2019 TOTBILI 0.6 06/08/2019 , Mg and PO4: Lab Results Component Value Date MG 1.9 06/08/2019 and Pertinent labs reviewed Point of Care Testing (Last 24 hours) Glucose: (!) 238 (06/08/19 4941) POC Glucose (Download): (!) 285 (06/08/19 2610) pH (Litmus Test) Urine pH: 7.5 (06/08/19 0657) Radiology and other Diagnostics Review: Pertinent radiology reviewed. Traci Mcdaniel MD Internal Medicine PGY-1 Pager: [phone], Available on voalte * Pedro Najera RN - 06/07/2019 3:07 PM CDT Patient arrived to room # ([id number]) via wheelchair accompanied by transport. Pat ient transferred to the bed with assistance. Bedside safety checks completed. In itial patient assessment completed. Refer to flowsheet for details. Admission skin assessment completed with: DENNY Cha Pressure injury present on arrival?: No 1. Head/Face/Neck: No 2. Trunk/Back: No 3. Upper Extremities: No 4. Lower Extremities: No 5. Pelvic/Coccyx: No 6. Assessed for device associated injury? Yes 7. Malnutrition Screening Tool (Nursing Nutrition Assessment) Completed? Yes * Susana Garcia MD - 06/07/2019 11:55 AM CDT Cardiology Progress Note Today's Date: 06/07/2019 Name: Refugio Lopez Admission Date: 06/05/2019 LOS: 2 days Assessment/Plan: Principal Problem: Diffuse large B cell lymphoma (HCC) Active Cardiac Problems: Paroxysmal Atrial fibrillation (HCC) Heart failure with reduced ejection fraction (HCC) CAD (coronary artery disease) s/p PCI in 2014 and PCI to RCA 05/15/19 Essential hypertension DM (diabetes mellitus) (HCC) Pulmonar embolism s/p catheter directed TPA Other active medical problems: Lytic bone lesions on xray Chronic hepatitis C (HCC) Back pain Dyslipidemia DLBCL (diffuse large B cell lymphoma) (HCC) is a pleasant 59 y.o. male with past medical history significant for C AD s/p stent placement in 2014 (unknown anatomy), type 2 diabetes mellitus, HTN, hepatitis C s/p curative treatment, admission to [facility] in [place] 05/14 - 05/18/19 for atrial fibrillation with RVR, diagnosed with bilateral PEs s/p tiago ter directed thrombolysis and lower extremity DVTs. He was also diagnosed with a n RCA lesion and underwent PCI and stent placement to RCA. He was started on met oprolol tartrate and diltiazem for rate control and discharged. Atrial fibrillat ion was difficult to rate control despite high doses of AV alberto blocking agents . He converted to sinus rhythm spontaneously this morning around 11 am. - recommend obtaining an EKG now that the patient is in sinus rhythm (ordered) - given rate control has been difficult to achieve despite high doses of AV natali l blockers it would be beneficial to attempt to maintain sinus rhythm with an an tiarrhythmic drug, we would recommend loading with amiodarone 1mg/min IV for 6 h ours followed by 0.5 mg/min IV for 24h followed by 400mg PO BID for 1 week, foll owed by 200mg PO daily - continue metoprolol and diltiazem at current doses - stop digoxin - continue dual antiplatelet therapy plus apixaban for anticoagulation until 05/19 , on 06/16/19 the patient can stop taking aspirin and remain on plavix and ap ixaban - consider further diuresis based on symptoms, his fluid balance may improve spo ntaneously now that he is in sinus rhythm I attempted to contact the team regarding recommendations to load with amiodaron e but did not get a call back so these orders were not placed in case the team d oes not want the patient on this medication. Please contact our service if there are questions. __ Subjective: Refugio Lopez is a 59 y.o. male. Overnight Events:No new events noted. The patient denies palpitations, dyspnea, orthopnea, PND overnight. He reports that overnight his heart rate was fast but he only knew because people came into the room to check on him. Review of Systems: A 14 point review of systems was negative except for: Cardiovascular: positive f or lower extremity edema Objective: Medications: Scheduled Meds: allopurinol (ZYLOPRIM) tablet 300 mg 300 mg Oral QDAY apixaban (ELIQUIS) tablet 5 mg 5 mg Oral BID aspirin EC tablet 81 mg 81 mg Oral QDAY atorvastatin (LIPITOR) tablet 40 mg 40 mg Oral QDAY clopiDOGrel (PLAVIX) tablet 75 mg 75 mg Oral QDAY dexAMETHasone (DECADRON) tablet 12 mg 12 mg Oral ONCE digoxin (LANOXIN) tablet 250 mcg 250 mcg Oral QDAY diltiazem CD (cardIZEM CD) capsule 240 mg 240 mg Oral QDAY fentaNYL (DURAGESIC) 25 mcg/hr patch 1 patch 1 patch Transdermal Q72H* furosemide (LASIX) injection 20 mg 20 mg Intravenous ONCE gabapentin (NEURONTIN) capsule 300 mg 300 mg Oral Q8H* insulin aspart U-100 (NOVOLOG FLEXPEN) injection PEN 0-6 Units 0-6 Units Subcuta neous ACHS (22) [START ON 06/08/2019] leucovorin calcium injection 50 mg 50 mg Intravenous Q6H* methotrexate PF 7,455 mg, sodium bicarbonate 25 mEq in dextrose 5% (D5W) 823.2 m L IVPB Intravenous ONCE metoprolol tartrate (LOPRESSOR) tablet 100 mg 100 mg Oral BID ondansetron (ZOFRAN) tablet 16 mg 16 mg Oral Q24H* Continuous Infusions: dextrose 5% (D5W) with sodium bicarbonate 150 mEq 1,150 mL IV infusion 75 mL /hr at 06/07/19 0640 PRN and Respiratory Meds:alteplase PRN (Defect Repairer Glassware from Rx), cyclobenzaprine TID DE N, docusate BID PRN, LORazepam (ATIVAN) injection Q6H PRN, LORazepam Q6H PRN, melatonin QHS PRN, ondansetron Q8H PRN, oxyCODONE Q3H PRN, polyethylene glycol 3 350 BID PRN, prochlorperazine Q6H PRN, prochlorperazine Q6H PRN, senna/docusate BID PRN, sodium bicarbonate 1 mEq/mL IVPB (max conc) PRN (Defect Repairer Glassware from Rx), sod ium chloride 0.9 % TKO infusion PRN, sodium chloride 0.9% irrigation bottle PRN Vital Signs: Last Filed Vital Signs: 24 Hour Range BP: 94/60 (06/07 111) Temp: 36.7 C (98 F) (06/07 1118) Pulse: 92 (06/07 1118) Respirations: 18 PER MINUTE (06/07 1118) SpO2: 96 % (06/07 111) BP: (87-119)/(54-88) Temp: [36.6 C (97.8 F)-37.4 C (99.3 F)] Pulse: [78-153] Respirations: [18 PER MINUTE] SpO2: [94 %-97 %] Intensity Pain Scale (Self Report): 8 Vitals: 06/05/19 1535 06/07/19 0610 Weight: 91.6 kg (202 lb) 92.1 kg (203 lb 0.7 oz) Intake/Output Summary: (Last 24 hours) Intake/Output Summary (Last 24 hours) at 06/07/2019 1155 Last data filed at 06/07/2019 0815 Gross per 24 hour Intake 2752 ml Output 3025 ml Net -273 ml Physical Exam: General Appearance: awake, alert, no apparent distress Head: normocephalic, atraumatic Eyes: conjunctivae and lids normal, pupils are equal and round Pulmonary: no increase in work of breathing, trace bibasilar crackles, no rales or rhonchi, no wheezing Cardiovascular: regular rate and rhythm, normal S1, S2, no murmurs, rubs or gall ops, 1+ pitting lower extremity Abdomen: soft, non-tender, no masses, bowel sounds normal Skin: warm, dry, rashes or lesions Neurologic Exam: neurological assessment grossly intact Laboratory Review: 24-hour labs: Results for orders placed or performed during the hospital encounter of 06/05/19 (from the past 24 hour(s)) POC GLUCOSE Collection Time: 06/06/19 3:07 PM Result Value Ref Range Glucose, POC 140 (H) 70 - 100 MG/DL BASIC METABOLIC PANEL Collection Time: 06/06/19 6:25 PM Result Value Ref Range Sodium 137 137 - 147 MMOL/L Potassium 3.8 3.5 - 5.1 MMOL/L Chloride 103 98 - 110 MMOL/L CO2 27 21 - 30 MMOL/L Anion Gap 7 3 - 12 Glucose 136 (H) 70 - 100 MG/DL Blood Urea Nitrogen 7 7 - 25 MG/DL Creatinine 0.50 0.4 - 1.24 MG/DL Calcium 8.5 8.5 - 10.6 MG/DL eGFR Non >60 >60 mL/min eGFR >60 >60 mL/min POC GLUCOSE Collection Time: 06/06/19 10:23 PM Result Value Ref Range Glucose, POC 114 (H) 70 - 100 MG/DL CBC AND DIFF CELLULAR THERAPEUTICS Collection Time: 06/07/19 2:00 AM Result Value Ref Range White Blood Cells 4.5 4.5 - 11.0 K/UL RBC 2.82 (L) 4.4 - 5.5 M/UL Hemoglobin 8.8 (L) 13.5 - 16.5 GM/DL Hematocrit 25.9 (L) 40 - 50 % MCV 91.5 80 - 100 FL MCH 31.1 26 - 34 PG MCHC 34.0 32.0 - 36.0 G/DL RDW 22.4 (H) 11 - 15 % Platelet Count 320 150 - 400 K/UL MPV 6.9 (L) 7 - 11 FL Nucleated RBCs 2 K/UL Segmented Neutrophils 35 (L) 41 - 77 % Bands 26 (H) 0 - 10 % Lymphocytes 16 (L) 24 - 44 % Monocytes 17 (H) 4 - 12 % Eosinophil 6 (H) 0 - 5 % ANISO PRESENT POIK PRESENT Platelet Estimate NORMAL Absolute Neutrophil Count Manual 2.75 1.8 - 7.0 K/UL COMPREHENSIVE METABOLIC PANEL CELLULAR THERAPEUTICS Collection Time: 06/07/19 2:00 AM Result Value Ref Range Sodium 138 137 - 147 MMOL/L Potassium 4.1 3.5 - 5.1 MMOL/L Chloride 103 98 - 110 MMOL/L Glucose 95 70 - 100 MG/DL Blood Urea Nitrogen 6 (L) 7 - 25 MG/DL Creatinine 0.48 0.4 - 1.24 MG/DL Calcium 8.4 (L) 8.5 - 10.6 MG/DL Total Protein 5.5 (L) 6.0 - 8.0 G/DL Total Bilirubin 0.7 0.3 - 1.2 MG/DL Albumin 3.1 (L) 3.5 - 5.0 G/DL Alk Phosphatase 150 (H) 25 - 110 U/L AST (SGOT) 12 7 - 40 U/L CO2 28 21 - 30 MMOL/L ALT (SGPT) 6 (L) 7 - 56 U/L Anion Gap 7 3 - 12 eGFR Non >60 >60 mL/min eGFR >60 >60 mL/min MAGNESIUM CELLULAR THERAPEUTICS Collection Time: 06/07/19 2:00 AM Result Value Ref Range Magnesium 1.7 1.6 - 2.6 mg/dL PHOSPHORUS CELLULAR THERAPEUTICS Collection Time: 06/07/19 2:00 AM Result Value Ref Range Phosphorus 3.5 2.0 - 4.5 MG/DL URIC ACID Collection Time: 06/07/19 2:00 AM Result Value Ref Range Uric Acid 4.0 4.0 - 8.0 MG/DL LDH-LACTATE DEHYDROGENASE Collection Time: 06/07/19 2:00 AM Result Value Ref Range Lactate Dehydrogenase 247 (H) 100 - 210 U/L POC GLUCOSE Collection Time: 06/07/19 7:58 AM Result Value Ref Range Glucose, POC 117 (H) 70 - 100 MG/DL POC GLUCOSE Collection Time: 06/07/19 11:15 AM Result Value Ref Range Glucose, POC 223 (H) 70 - 100 MG/DL BASIC METABOLIC PANEL Collection Time: 06/07/19 12:09 PM Result Value Ref Range Sodium 137 137 - 147 MMOL/L Potassium 3.9 3.5 - 5.1 MMOL/L Chloride 102 98 - 110 MMOL/L CO2 30 21 - 30 MMOL/L Anion Gap 5 3 - 12 Glucose 189 (H) 70 - 100 MG/DL Blood Urea Nitrogen 7 7 - 25 MG/DL Creatinine 0.44 0.4 - 1.24 MG/DL Calcium 8.2 (L) 8.5 - 10.6 MG/DL eGFR Non >60 >60 mL/min eGFR >60 >60 mL/min MAGNESIUM Collection Time: 06/07/19 12:09 PM Result Value Ref Range Magnesium 1.7 1.6 - 2.6 mg/dL Point of Care Testing: (Last 24 hours): Glucose: 95 (06/07/19 0200) POC Glucose (Download): (!) 223 (06/07/19 1115) Cardiographics: ECG: atrial fibrillation with RVR at a rate of 120bpm, possible old septal myoca rdial infarction, poor R wave progression Echocardiogram: Not done Chest X-Ray: no pulmonary edema, mild bibasilar atelectasis or scarring Susana Garcia MD PGY6 Cardiovascular Disease Pager [phone] Associated attestation - Inocencio Mcdonough MD - 06/07/2019 5:14 PM CDT Cardiology Staff Note Mr. Lopez was -1.2 L last 24 hours, -0.9 L for the hospitalization. His weight is 203 pounds. He has diuresed overnight, if his blood pressures remain stable, I think it be reasonable to give him an additional Lasix 40 mg IV x1. When I first saw him this morning he was still in atrial fibrillation, however h e has since converted to normal sinus rhythm. I think would be reasonable to st art him on amiodarone, to try to maintain sinus rhythm moving forward. Especial ly during the acute phase of his illness. I think we could do an IV load if oka y with a heme team. I did not write for these orders. Otherwise his rates were better overnight with the digoxin. If we do start amio darone, I would discontinue the digoxin. I rotate off today, I will have the consult team follow-up with him tomorrow. ATTESTATION The undersigned physician has personally seen and examined the patient. The fin dings have been discussed with the Amphibious Operations Officer. I have reviewed the diagn ostic tests. I agree with the below. Staff name: Inocencio Mcdonough MD Date: 06/07/2019 * Ruby Doss MD - 06/07/2019 7:36 AM CDT General Progress Note Name: Refugio Lopez Today's Date: 06/07/2019 Admission Date: 06/05/2019 LOS: 2 days Assessment/Plan: Principal Problem: Diffuse large B cell lymphoma (HCC) Active Problems: Lytic bone lesions on xray Essential hypertension DM (diabetes mellitus) (HCC) Chronic hepatitis C (HCC) Cardiomyopathy (HCC) CAD (coronary artery disease) Back pain Dyslipidemia Atrial fibrillation (HCC) Pulmonary embolus (HCC) Heart failure with reduced ejection fraction (HCC) DLBCL (diffuse large B cell lymphoma) (HCC) Refugio Lopez is a 59 y.o. 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 DLBCL withBulkySpinal Cord Involvements/p Laminectomy and Decompression an d Arthrodesis Anemia -patient of Dr. Cueva - Progressive back [...] , germinal center type, with necrosis - Dex 40mg 04/24-04/29 - Rituxan 04/25 -C-Myc negative - S/p HD MTX 05/21 Plan: > Plan for MTX today > Sodium bicarb as per protocol > 24 hrs after MTX dose, administer concentrated leucovorin until MTX levels < 0.1 >Continueallopurinol > Oxycodone and fentanyl patch for pain mgmt > Transfuse prn Afibw/ RVR - Reported ED visit for A fib in 2014 following NSTEMI and CARLY. Was reportedly o n anticoagulation until earlier this year -Hospitalization 05/14-05/18 for Afib with RVR among others. Discharged with Meto prolol and diltiazem - Follows with Dr. Bashar Silvia Plan: > Continue LOCATION DIRECTOR diltiazem, metoprolol, Eliquis > Started digoxin > Cardiology following - january plan on cardioversion this week > Monitor daily electrolytes, Mg, Phos; replete as needed CAD s/p CARLY 05/15/19 Heart Failure with Recovered Ejection Fraction - acute on chronic HLD -EF 35% in 2014 per OSH notes -Echo 04/27; EF 55%, mild LV dysfunction, madelaine-apical akinesis suggesting prior anterior GA, mild LA enlargement -CARLY placed in 2014 -CARLY placed 05/15/19.Patient had CP and mild elevation in troponin following ca theter directed thrombolysis, but no mention of an EKGor luminal abnormalities on angiogram -CXR 06/06: clear Plan > Continue Lipitor 40 mg qd > Continue ASA and Plavix > Cardio consulted, appreciate recs > IV lasix prn - goal net negative Neutropenia - Resolved - 06/06: Neutro: 37 ANC 0.80 - Received one dose of Zarxio 06/06 Hx ofDVT/PE - Hospitalized for syncopal event at [facility] 05/14-05/18. CTA demons trated "extensive bilateral pulmonary emboli." Because patient was hypotensive, he was taken to interventional cardiology who performed catheter directed thromb olysis with TPA -No signs of right heart failure on right heart cath. Discharged on 5 mg Eliquis BID Plan: > Continue Eliquis 5mg BID DM Type II - LOCATION DIRECTOR metformin - HA1c: 5.7 05/20/19 Plan > hold metformin, monitor glucose > continue LOCATION DIRECTOR gabapentin > patient requested glucose checks FEN: IVF per protocol, Lytes PRN, regular diet DVT Ppx: Eliquis Code Status: Full Code Dispo: Continue admission to hematology for planned chemotherapy. Pt seen and discussed with Dr. Jefferson. Lisa Doss MD Internal Medicine PGY3 (Pager) Subjective No acute events overnight. He did have a run of NSVT. He denies chest pain or shortness of breath. Edema improved. Tolerating diet. Ambulating without diff iculties. Review of Systems Constitutional: Positive for malaise/fatigue. Negative for fever. HENT: Negative. Negative for congestion, nosebleeds and sore throat. Eyes: Negative. Respiratory: Negative. Negative for cough, sputum production and shortness of b reath. Cardiovascular: Positive for leg swelling. Negative for chest pain and palpitati ons. Gastrointestinal: Negative. Negative for abdominal pain, constipation, diarrhea , nausea and vomiting. Genitourinary: Negative. Negative for dysuria. Musculoskeletal: Negative. Negative for falls. Skin: Negative. Negative for rash. Neurological: Negative. Negative for dizziness, sensory change, focal weakness and headaches. Endo/Heme/Allergies: Negative. Psychiatric/Behavioral: Negative. The patient is not nervous/anxious. Medications Scheduled Meds: allopurinol (ZYLOPRIM) tablet 300 mg 300 mg Oral QDAY apixaban (ELIQUIS) tablet 5 mg 5 mg Oral BID aspirin EC tablet 81 mg 81 mg Oral QDAY atorvastatin (LIPITOR) tablet 40 mg 40 mg Oral QDAY clopiDOGrel (PLAVIX) tablet 75 mg 75 mg Oral QDAY dexAMETHasone (DECADRON) tablet 12 mg 12 mg Oral ONCE digoxin (LANOXIN) tablet 250 mcg 250 mcg Oral QDAY diltiazem CD (cardIZEM CD) capsule 240 mg 240 mg Oral QDAY fentaNYL (DURAGESIC) 25 mcg/hr patch 1 patch 1 patch Transdermal Q72H* furosemide (LASIX) injection 20 mg 20 mg Intravenous ONCE gabapentin (NEURONTIN) capsule 300 mg 300 mg Oral Q8H* insulin aspart U-100 (NOVOLOG FLEXPEN) injection PEN 0-6 Units 0-6 Units Subcuta neous ACHS (22) [START ON 06/08/2019] leucovorin calcium injection 50 mg 50 mg Intravenous Q6H* methotrexate PF 7,455 mg, sodium bicarbonate 25 mEq in dextrose 5% (D5W) 823.2 m L IVPB Intravenous ONCE metoprolol tartrate (LOPRESSOR) tablet 100 mg 100 mg Oral BID ondansetron (ZOFRAN) tablet 16 mg 16 mg Oral Q24H* Continuous Infusions: dextrose 5% (D5W) with sodium bicarbonate 150 mEq 1,150 mL IV infusion 75 mL /hr at 06/07/19 0640 PRN and Respiratory Meds:alteplase PRN (Defect Repairer Glassware from Rx), cyclobenzaprine TID DE N, docusate BID PRN, LORazepam (ATIVAN) injection Q6H PRN, LORazepam Q6H PRN, melatonin QHS PRN, ondansetron Q8H PRN, oxyCODONE Q3H PRN, polyethylene glycol 3 350 BID PRN, prochlorperazine Q6H PRN, prochlorperazine Q6H PRN, senna/docusate BID PRN, sodium bicarbonate 1 mEq/mL IVPB (max conc) PRN (Defect Repairer Glassware from Rx), sod ium chloride 0.9 % TKO infusion PRN, sodium chloride 0.9% irrigation bottle PRN Medications Prior to Admission Medication Sig Dispense Refill Last Dose acetaminophen (TYLENOL) 325 mg tablet Take two tablets by mouth every 6 hour s as needed. Max dose of 4000 mg daily 30 tablet 0 Taking allopurinol (ZYLOPRIM) 300 mg tablet Take one tablet by mouth daily. Take food. 90 tablet 3 Taking apixaban (ELIQUIS) 5 mg tablet Take 5 mg by mouth twice daily. Taking aspirin EC 81 mg tablet Take 81 mg by mouth daily. Take with food. Taking atorvastatin (LIPITOR) 40 mg tablet Take one tablet by mouth daily. 90 table t 3 Taking clopiDOGrel (PLAVIX) 75 mg tablet Take 75 mg by mouth daily. Taking cyclobenzaprine (FLEXERIL) 10 mg tablet Take 10 mg by mouth three times elham y as needed. Taking diltiazem CD (CARDIZEM CD) 240 mg capsule Take one capsule by mouth daily. 3 0 capsule 1 Taking docusate (COLACE) 100 mg capsule Take one capsule by mouth twice daily. 180 capsule 3 Taking fentaNYL (DURAGESIC) 25 mcg/hr patch Apply one patch to top of skin as direc ignacio every 72 hours 10 patch 0 Taking gabapentin (NEURONTIN) 300 mg capsule Take 300 mg by mouth every 8 hours. Taking melatonin 5 mg tab Take one tablet by mouth at bedtime as needed. 30 tablet 0 Taking metFORMIN (GLUCOPHAGE) 500 mg tablet Take 500 mg by mouth twice daily with m eals. Taking metoprolol tartrate (LOPRESSOR) 50 mg tablet Take 1.5 tablets by mouth twice daily. (Patient taking differently: Take 100 mg by mouth twice daily.) 90 tablet 1 Taking Multivitamins with Fluoride (MULTI-VITAMIN PO) Take 1 tablet by mouth daily. Taking ondansetron (ZOFRAN) 4 mg tablet Take one tablet by mouth every 8 hours as n eeded for Nausea. 15 tablet 0 Taking oxyCODONE (ROXICODONE, OXY-IR) 5 mg tablet Take one tablet to two tablets by mouth every 3 hours as needed 90 tablet [address] (PROTONIX) 40 mg tablet Take 40 mg by mouth daily. Taking polyethylene glycol 3350 (MIRALAX) 17 g packet Take one packet by mouth twic e daily. Indications: constipation 12 each 0 Taking senna/docusate (SENOKOT-S) 8.6/50 mg tablet Take one tablet by mouth twice d aily. 60 tablet 0 Taking traMADol (ULTRAM) 50 mg tablet Take 50 mg by mouth every 6 hours as needed f or Pain. Taking zolpidem (AMBIEN) 10 mg tablet Take 10 mg by mouth at bedtime as needed for Sleep. Taking Allergies No Known Allergies Objective Vital Signs: Last Filed Vital Signs: 24 Karuna r Range BP: 94/60 (06/07 1118) Temp: 36.7 C (98 F) (06/07 1118) Pulse: 92 (06/07 1118) Respirations: 18 PER MINUTE (06/07 1118) SpO2: 96 % (06/07 1118) BP: (87-119)/(54-88) Temp: [36.6 C (97.8 F)-37.4 C (99.3 F)] Pulse: [78-153] Respirations: [18 PER MINUTE] SpO2: [94 %-97 %] Intensity Pain Scale (Self Report): 8 (06/07/19 0732) Vitals: 06/05/19 1535 06/07/19 0610 Weight: 91.6 kg (202 lb) 92.1 kg (203 lb 0.7 oz) Intake/Output Summary: (Last 24 hours) Intake/Output Summary (Last 24 hours) at 06/07/2019 1121 Last data filed at 06/07/2019 0815 Gross per 24 hour Intake 2732 ml Output 3025 ml Net -293 ml Stool Occurrence: 0 Physical Exam Physical Exam Constitutional: He is oriented to person, place, and time and well-developed, we ll-nourished, and in no distress. He appears not lethargic. No distress. HENT: Head: Normocephalic and atraumatic. Right Ear: External ear normal. Left Ear: External ear normal. Nose: Nose normal. Mouth/Throat: Oropharynx is clear and moist. No oropharyngeal exudate. Eyes: Pupils are equal, round, and reactive to light. Conjunctivae and EOM are n ormal. Right eye exhibits no discharge. Left eye exhibits no discharge. No scler al icterus. Neck: Normal range of motion. Neck supple. Cardiovascular: Intact distal pulses. An irregularly irregular rhythm present. Pulmonary/Chest: Effort normal and breath sounds normal. No accessory muscle usa ge. No respiratory distress. He has no wheezes. He has no rales. He exhibits no tenderness. Abdominal: Soft. Bowel sounds are normal. He exhibits no distension. There is no tenderness. Musculoskeletal: Normal range of motion. He exhibits edema (lower extremity steve a, mainly below ankles). He exhibits no tenderness. Neurological: He is alert and oriented to person, place, and time. He appears no t lethargic. No cranial nerve deficit. Skin: Skin is warm and dry. No laceration and no rash noted. No cyanosis or eryt fer. Psychiatric: Mood, affect and judgment normal. Nursing note and vitals reviewed. Lab Review Hematology: Lab Results Component Value Date HGB 8.8 06/07/2019 HCT 25.9 06/07/2019 PLTCT 320 06/07/2019 WBC 4.5 06/07/2019 NEUT 37 06/06/2019 ANC 2.75 06/07/2019 ANC 0.80 06/06/2019 LYMPH 16 06/07/2019 ALC 0.60 06/06/2019 GANESH 22 06/06/2019 AMC 0.40 06/06/2019 ABC 0.00 06/06/2019 MCV 91.5 06/07/2019 MCHC 34.0 06/07/2019 MPV 6.9 06/07/2019 RDW 22.4 06/07/2019 , Coagulation: No results found for: PT, PTT, INR, General Chemistry: Lab Results Component Value Date NA 138 06/07/2019 K 4.1 06/07/2019 CL 103 06/07/2019 GAP 7 06/07/2019 BUN 6 06/07/2019 CR 0.48 06/07/2019 GLU 95 06/07/2019 CA 8.4 06/07/2019 ALBUMIN 3.1 06/07/2019 OBSCA 1.18 04/26/2019 MG 1.7 06/07/2019 TOTBILI 0.7 06/07/2019 , Mg and PO4: Lab Results Component Value Date MG 1.7 06/07/2019 and Pertinent labs reviewed Point of Care Testing (Last 24 hours) Glucose: 95 (06/07/19 0200) POC Glucose (Download): (!) 223 (06/07/19 1115) Radiology and other Diagnostics Review: Pertinent radiology reviewed. Associated attestation - Maikol Cristobal MD - 06/07/2019 12:59 PM CDT I have seen, examined, and participated in all medical decision making regarding this patient's care. I personally reviewed all of their laboratory reports and pertinent imaging as d etailed above in the resident's notes. I agree with the resident documentation as detailed above with the following add itions and/or exceptions: Edema improved and CXR negative for effusions. Stable to start MTX today. Cotninue IV Lasix and will concentrate bicoarbonate fluids with methotrexate and use bolus leucovorin IV. Discussed case persoanlly with Dr Mcdonough from cardiology yesterday and do not a nticiapte significnat cytopenias with methtrexate unless poor clearance. Reasonable to cardiovert and pursue rhythm control if preferred. * Devyn Augustin RN - 06/07/2019 5:00 AM CDT [facility] physician notified. Mag replacement ordered. WCTM * Traci Mcdaniel MD - 06/06/2019 7:56 AM CDT General Progress Note Name: Refugio Lopez Today's Date: 06/06/2019 Admission Date: 06/05/2019 LOS: 1 day Assessment/Plan: Principal Problem: Diffuse large B cell lymphoma (HCC) Active Problems: Lytic bone lesions on xray Essential hypertension DM (diabetes mellitus) (HCC) Chronic hepatitis C (HCC) Cardiomyopathy (HCC) CAD (coronary artery disease) Back pain Dyslipidemia Atrial fibrillation (HCC) Pulmonary embolus (HCC) Heart failure with reduced ejection fraction (HCC) DLBCL (diffuse large B cell lymphoma) (HCC) Refugio Lopez is a 59 y.o. 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 DLBCL withBulkySpinal Cord Involvements/p Laminectomy and Decompression [...] , germinal center type, with necrosis - Dex 40mg 04/24-04/29 - Rituxan 04/25 -C-Myc negative - S/p HD MTX 05/21 Plan: > Hold plan for MTX 2nd dose, Cycle 2, Day 1 until diuresis completed > Sodium bicarb as per protocol > 24 hrs after MTX dose, administer concentrated leucovorin until MTX levels < 0.1 >Continueallopurinol > Oxycodone and fentanyl patch for pain mgmt > Received 1 unit RBC 06/06 Hb 6.9 CAD s/p CARLY 05/15/19 Heart Failure with Recovered Ejection Fraction HLD -EF 35% in 2014 per OSH notes -Echo 04/27; EF 55%, mild LV dysfunction, madelaine-apical akinesis suggesting prior anterior GA, mild LA enlargement -CARLY placed in 2014 -CARLY placed 05/15/19.Patient had CP and mild elevation in troponin following ca theter directed thrombolysis, but no mention of an EKGor luminal abnormalities on angiogram -CXR 06/06: clear Plan > Continue Lipitor 40 mg qd > Continue ASA and Plavix > Cardio consulted, appreciate recs > started IV Lasix 20 mg, dose as needed Neutropenia - 06/06: Neutro: 37 ANC 0.80 Plan: > Zarxio 480 mcg one dose 06/06 Afibw/ RVR - Reported ED visit for A fib in 2014 following NSTEMI and CARLY. Was reportedly o n anticoagulation until earlier this year -Hospitalization 05/14-05/18 for Afib with RVR among others. Discharged with Meto prolol and diltiazem - Follows with Dr. Ayesha Vega Plan: > Continue LOCATION DIRECTOR diltiazem, metoprolol, Eliquis, Plavix, ASA > Monitor daily electrolytes, Mg, Phos; replete as needed Hx ofDVT/PE - Hospitalized for syncopal event at [facility] 05/14-05/18. CTA demons trated "extensive bilateral pulmonary emboli." Because patient was hypotensive, he was taken to interventional cardiology who performed catheter directed thromb olysis with TPA -No signs of right heart failure on right heart cath. Discharged on 5 mg Eliquis BID Plan: > Continue Eliquis 5mg BID DM Type II - LOCATION DIRECTOR metformin - HA1c: 5.7 05/20/19 Plan > hold metformin, monitor glucose > continue LOCATION DIRECTOR gabapentin FEN: IVF per protocol, Lytes PRN, regular diet DVT Ppx: Eliquis Code Status: Full Code Dispo: Continue admission to hematology for planned chemotherapy. Pt seen and discussed with Dr. Jefferson. Traci Mcdaniel M.D. PGY-1 Internal Medicine Pager: [phone], Available on Voalte Subjective Pt received 1 un RBC overnight Hb 6.9. Pt had no complaints today. Patient said he has used a walker since his fall at [facility] due to instability. D enies palpitations. Denies ever being on lasix before. states the swelling in his foot is worse this monring. Patient stated he has had swelling in his fee t before, but not in his last admission and not for this long. Pt told that Meth otrexate dose is on hold until his his edema symptoms have improved after lasix. Review of Systems Constitutional: Negative for fever. HENT: Negative for congestion, nosebleeds and sore throat. Respiratory: Negative for sputum production. Cardiovascular: Negative for chest pain and palpitations. Musculoskeletal: Negative for falls. Skin: Negative for rash. Psychiatric/Behavioral: Negative. Medications Scheduled Meds: allopurinol (ZYLOPRIM) tablet 300 mg 300 mg Oral QDAY apixaban (ELIQUIS) tablet 5 mg 5 mg Oral BID aspirin EC tablet 81 mg 81 mg Oral QDAY atorvastatin (LIPITOR) tablet 40 mg 40 mg Oral QDAY clopiDOGrel (PLAVIX) tablet 75 mg 75 mg Oral QDAY diltiazem CD (cardIZEM CD) capsule 240 mg 240 mg Oral QDAY fentaNYL (DURAGESIC) 25 mcg/hr patch 1 patch 1 patch Transdermal Q72H* gabapentin (NEURONTIN) capsule 300 mg 300 mg Oral Q8H* magnesium sulfate 1 g/D5W 100 mL IVPB 1 g Intravenous Q1H X 2DO metoprolol tartrate (LOPRESSOR) tablet 100 mg 100 mg Oral BID potassium chloride SR (K-DUR) tablet 40 mEq 40 mEq Oral ONCE Continuous Infusions: dextrose 5% (D5W) with sodium bicarbonate 100 mEq 1,100 mL IV infusion 150 m L/hr at 06/06/19 0434 PRN and Respiratory Meds:alteplase PRN (Defect Repairer Glassware from Rx), cyclobenzaprine TID DE N, docusate BID PRN, melatonin QHS PRN, ondansetron Q8H PRN, oxyCODONE Q3H PRN, polyethylene glycol 3350 BID PRN, senna/docusate BID PRN, sodium bicarbonate 1 mEq/mL IVPB (max conc) PRN (Defect Repairer Glassware from Rx), sodium chloride 0.9 % TKO infusion PRN, sodium chloride 0.9% irrigation bottle PRN Medications Prior to Admission Medication Sig Dispense Refill Last Dose acetaminophen (TYLENOL) 325 mg tablet Take two tablets by mouth every 6 hour s as needed. Max dose of 4000 mg daily 30 tablet 0 Taking allopurinol (ZYLOPRIM) 300 mg tablet Take one tablet by mouth daily. Take food. 90 tablet 3 Taking apixaban (ELIQUIS) 5 mg tablet Take 5 mg by mouth twice daily. Taking aspirin EC 81 mg tablet Take 81 mg by mouth daily. Take with food. Taking atorvastatin (LIPITOR) 40 mg tablet Take one tablet by mouth daily. 90 table t 3 Taking clopiDOGrel (PLAVIX) 75 mg tablet Take 75 mg by mouth daily. Taking cyclobenzaprine (FLEXERIL) 10 mg tablet Take 10 mg by mouth three times elham y as needed. Taking diltiazem CD (CARDIZEM CD) 240 mg capsule Take one capsule by mouth daily. 3 0 capsule 1 Taking docusate (COLACE) 100 mg capsule Take one capsule by mouth twice daily. 180 capsule 3 Taking fentaNYL (DURAGESIC) 25 mcg/hr patch Apply one patch to top of skin as direc ignacio every 72 hours 10 patch 0 Taking gabapentin (NEURONTIN) 300 mg capsule Take 300 mg by mouth every 8 hours. Taking melatonin 5 mg tab Take one tablet by mouth at bedtime as needed. 30 tablet 0 Taking metFORMIN (GLUCOPHAGE) 500 mg tablet Take 500 mg by mouth twice daily with m eals. Taking metoprolol tartrate (LOPRESSOR) 50 mg tablet Take 1.5 tablets by mouth twice daily. (Patient taking differently: Take 100 mg by mouth twice daily.) 90 tablet 1 Taking Multivitamins with Fluoride (MULTI-VITAMIN PO) Take 1 tablet by mouth daily. Taking ondansetron (ZOFRAN) 4 mg tablet Take one tablet by mouth every 8 hours as n eeded for Nausea. 15 tablet 0 Taking oxyCODONE (ROXICODONE, OXY-IR) 5 mg tablet Take one tablet to two tablets by mouth every 3 hours as needed 90 tablet [address] (PROTONIX) 40 mg tablet Take 40 mg by mouth daily. Taking polyethylene glycol 3350 (MIRALAX) 17 g packet Take one packet by mouth twic e daily. Indications: constipation 12 each 0 Taking senna/docusate (SENOKOT-S) 8.6/50 mg tablet Take one tablet by mouth twice d aily. 60 tablet 0 Taking traMADol (ULTRAM) 50 mg tablet Take 50 mg by mouth every 6 hours as needed f or Pain. Taking zolpidem (AMBIEN) 10 mg tablet Take 10 mg by mouth at bedtime as needed for Sleep. Taking Allergies No Known Allergies Objective Vital Signs: Last Filed Vital Signs: 24 Karuna r Range BP: 108/68 (06/06 729) Temp: 37.2 C (99 F) (06/06 729) Pulse: 112 (06/06 729) Respirations: 18 PER MINUTE (06/06 729) SpO2: 94 % (06/06 729) Height: 185.4 cm (73") (06/05 153) BP: (90-110)/(60-79) Temp: [36.5 C (97.7 F)-37.2 C (99 F)] Pulse: [70-112] Respirations: [18 PER MINUTE-19 PER MINUTE] SpO2: [92 %-100 %] Intensity Pain Scale (Self Report): Asleep (06/06/19 0015) Vitals: 06/05/19 1535 Weight: 91.6 kg (202 lb) Intake/Output Summary: (Last 24 hours) Intake/Output Summary (Last 24 hours) at 06/06/2019 0756 Last data filed at 06/06/2019 0623 Gross per 24 hour Intake 300 ml Output 0 ml Net 300 ml Stool Occurrence: 0 Physical Exam Physical Exam Constitutional: He is oriented to person, place, and time and well-developed, we ll-nourished, and in no distress. He appears not lethargic. No distress. HENT: Mouth/Throat: Oropharynx is clear and moist. No oropharyngeal exudate. Eyes: No scleral icterus. Cardiovascular: Intact distal pulses. An irregularly irregular rhythm present. Pulmonary/Chest: Effort normal and breath sounds normal. No accessory muscle usa ge. No respiratory distress. He exhibits no tenderness. Abdominal: Soft. He exhibits no distension. There is no tenderness. Musculoskeletal: Normal range of motion. He exhibits edema (b/l LE pedeal edema R>L). He exhibits no tenderness. Neurological: He is oriented to person, place, and time. He appears not lethargi c. Skin: Skin is warm and dry. No laceration and no rash noted. No cyanosis or eryt fer. Psychiatric: Mood, affect and judgment normal. Nursing note and vitals reviewed. Lab Review Hematology: Lab Results Component Value Date HGB 6.9 06/06/2019 HCT 21.1 06/06/2019 PLTCT 281 06/06/2019 WBC 2.1 06/06/2019 NEUT 37 06/06/2019 ANC 0.80 06/06/2019 LYMPH 32 06/05/2019 ALC 0.60 06/06/2019 GANESH 22 06/06/2019 AMC 0.40 06/06/2019 ABC 0.00 06/06/2019 MCV 92.6 06/06/2019 MCHC 32.8 06/06/2019 MPV 7.1 06/06/2019 RDW 23.8 06/06/2019 , Coagulation: No results found for: PT, PTT, INR, General Chemistry: Lab Results Component Value Date NA 137 06/06/2019 K 3.6 06/06/2019 CL 103 06/06/2019 GAP 5 06/06/2019 BUN 8 06/06/2019 CR 0.40 06/06/2019 GLU 134 06/06/2019 CA 8.3 06/06/2019 ALBUMIN 3.1 06/06/2019 OBSCA 1.18 04/26/2019 MG 1.6 06/06/2019 TOTBILI 0.4 06/06/2019 , Mg and PO4: Lab Results Component Value Date MG 1.6 06/06/2019 and Pertinent labs reviewed Point of Care Testing (Last 24 hours) Glucose: (!) 134 (06/06/19 0214) Radiology and other Diagnostics Review: Pertinent radiology reviewed. Traci Mcdaniel M.D. PGY-1 Internal Medicine Pager: [phone] Associated attestation - Maikol Cristobal MD - 06/06/2019 12:38 PM CDT I have seen, examined, and participated in all medical decision making regarding this patient's care. I personally reviewed all of their laboratory reports and pertinent imaging as d etailed above in the resident's notes. I agree with the resident documentation as detailed above with the following add itions and/or exceptions: Edematous today and neutropenic. Not safe for MTX yet. Start IV diuresis. Check CXR. Neupogen today. If counts stable and edema improved, likely will be able to proceed with HD-MTX tomorrow. * Mercedes Antoine RT - 06/05/2019 5:03 PM CDT RT Adult Assessment Note NAME:Refugio Lopez :1960 AGE: 59 y.o. ADMISSION DATE: 06/05/2019 DAYS ADMITTED: LOS: 0 days RT Treatment Plan: Protocol Plan: Procedures IPPB: Place a nursing order for "IS Q1h While Awake" for any of Lung Expansion i ndicators Oxygen/Humidity: O2 to keep SpO2 > 95% Monitoring: Pulse oximetry BID & PRN Comment: HB 8.1 Additional Comments: Impressions of the patient: REFUGIO ON ROOM AIR BREATH SOUNDS CLEAR GOOD EFFORT ON IS Intervention(s)/outcome(s): IS Q1WA Patient education that was completed: INSTRUCT ON IS Recommendations to the care team: CONTINUE TO MONITOR LOW HB Vital Signs: Pulse: 99 RR: 19 PER MINUTE SpO2: 98 % O2 Device: Liter Flow: O2%: 21 % Breath Sounds: Respiratory Effort: Non-Labored * Trevor Rao RN - 06/05/2019 4:24 PM CDT Patient arrived to room # (4356) via wheelchair accompanied by transport. Patien t transferred to the bed without assistance. Bedside safety checks completed. In itial patient assessment completed. Refer to flowsheet for details. Admission skin assessment completed with: DENNY Riley Pressure injury present on arrival?: No 1. Head/Face/Neck: No 2. Trunk/Back: No 3. Upper Extremities: No 4. Lower Extremities: No 5. Pelvic/Coccyx: No 6. Assessed for device associated injury? Yes 7. Malnutrition Screening Tool (Nursing Nutrition Assessment) Completed? No See Doc Flowsheet for additional wound details. INTERVENTIONS: No pressure injuries upon arrival. * Trevor Rao RN - 06/05/2019 3:37 PM CDT 1525: patient arrived on unit. This nurse [employer] paged [facility] to let them know nisha t patient has arrived on the unit documented in this encounter H&P Notes * Blair Thakur MD - 06/05/2019 4:14 PM CDT Admission History and Physical Examination Name: Refugio Lopez 4 Admission Date: 06/05/2019 Assessment/Plan: Principal Problem: Diffuse large B cell lymphoma (HCC) Active Problems: Lytic bone lesions on xray Essential hypertension DM (diabetes mellitus) (HCC) Chronic hepatitis C (HCC) Cardiomyopathy (HCC) CAD (coronary artery disease) Back pain Dyslipidemia Atrial fibrillation (HCC) Pulmonary embolus (HCC) Heart failure with [...] arthrodesis on 04/26 who is admitted for shaheen nned chemotherapy. DLBCL withBulkySpinal Cord Involvements/p Laminectomy and Decompression [...] , germinal center type, with necrosis - Dex 40mg 04/24-04/29 - Rituxan 04/25 -C-Myc negative - S/p HD MTX 05/21 Plan: > Plan for MTX 2nd dose, Cycle 2, Day after confirmation from Dr. Jefferson > Sodium bicarb as per protocol > 24 hrs after MTX dose, administer leucovorin until MTX levels <0.1 > Continue allopurinol > Discuss when to schedule next PET scan. Last scan: 04/24/2019 > Plan for MTX 2nd dose, Cycle 2, Day 1 > Oxycodone for pain mgmt Afibw/ RVR - Reported ED visit for A fib in 2014 following NSTEMI and CARLY. Was reportedly o n anticoagulation until earlier this year - Hospitalization 05/14-05/18 for Afib with RVR among others. Discharged with Metop rolol and diltiazem - Follows with Dr. Ayesha Vega Plan: > Continue LOCATION DIRECTOR diltiazem, metoprolol, Eliquis, Plavix, ASA CAD s/p CARLY 05/15/19 Heart Failure with Recovered Ejection Fraction HLD -EF 35% in 2014 per OSH notes -Echo 04/27; EF 55%, mild LV dysfunction, madelaine-apical akinesis suggesting prior anterior GA, mild LA enlargement -CARLY placed in 2014 -CARLY placed 05/15/19.Patient had CP and mild elevation in troponin following ca theter directed thrombolysis, but no mention of an EKGor luminal abnormalities on angiogram Plan > Continue Lipitor 40 mg qd > Continue ASA and Plavix > Consult Cardiology Hx of DVT/PE - Hospitalized for syncopal event at [facility] 05/14-05/18. CTA demons trated "extensive bilateral pulmonary emboli." Because patient was hypotensive, he was taken to interventional cardiology who performed catheter directed thromb olysis with TPA - No signs of right heart failure on right heart cath. Discharged on 5 mg Lyndsay balbir BID Plan: > Continue Eliquis 5mg BID DM Type II -LOCATION DIRECTOR metformin -Hgb A1c 05/20: 5.7 Plan > Hold metformin > Monitor glucose HCV - S/p treatment in 2015 Fluids, electrolytes and Nutrition: IVF:per protocol Electrolytes:replacing prn Diet:regular Prophylaxis: DVT:Eliquis Code status: FULL Disposition:admit to hematology Patient discussed with . Traci Mcdaniel MD Internal Medicine PGY1 Pager [phone], available on Voalte __ Primary Care Physician: Bertin Cole Verified Chief Complaint: Admission for chemotherapy for DLBCL History of Present Illness: Refugio Lopez is a 59 y.o. male present for [facility] ed chemotherapy with high dose methotrexate Dose 2 Cycle 2 Day 1. Patient was di agnosed 04/14/2019 with Diffuse Large B Cell Lymphoma by bone marrow biopsy after a history of progressive back pain. Patient was scheduled for Hyper-CVAD arm B for 05/07 but was switched to HD MTX due to CARLY placement in 05/15/19. Patient rec eived first dose of HD MTX on 05/20. Today, patient was admitted to with his Heather after completing blood wor k at the outpatient clinic. He reports no recent history of illness or infection and has no recent injuries or falls. Patient stated that after his last dischar ge, he has been more careful and attentive to his health. He followed up with [facility] outpatient hand knitter for Afib RVR, which he only notices when he feels anxi ous or after exertion because of tremor. Patient reports constant back pain that does not subside with posture adjustment, mostly likely from previous compressi on fractures. Patient reported no ill effect or reaction after the last dose of MTX. Patient r eported bilateral swelling of his lower extremities. He states this problem has occurred for him on and off and usually subsides after a few days and by taking his water pill. Patient uses a walker to ambulate. Pt has a minor nonproductive cough. Medical History: Diagnosis Date Back pain CAD [...] on file Occupational History Not on file Social Needs Financial resource strain: Not on file Food insecurity: Worry: Not on file Inability: Not on file Transportation needs: Medical: Not on file Non-medical: Not on file Tobacco Use Smoking status: Former Smoker Last attempt to quit: 07/26/2015 Years since quittin.8 Smokeless tobacco: Never Used Substance and Sexual Activity Alcohol use: Yes Alcohol/week: 2.0 standard drinks Types: 2 Cans of beer per week Drug use: Never Sexual activity: Not on file Lifestyle Physical activity: Days per week: Not on file Minutes per session: Not on file Stress: Not on file Relationships Social connections: Talks on phone: Not on file Gets together: Not on file Attends tenriism service: Not on file Active member of club or organization: Not on file Attends meetings of clubs or organizations: Not on file Relationship status: Not on file Intimate partner violence: Fear of current or ex partner: Not on file Emotionally abused: Not on file Physically abused: Not on file Forced sexual activity: Not on file Other Topics Concern Not on file Social History Narrative Not on file Immunizations (includes history and patient reported): There is no immunization history on file for this patient. Allergies: Patient has no known allergies. Medications: Medications Prior to Admission Medication Sig acetaminophen (TYLENOL) 325 mg tablet Take two tablets by mouth every 6 hour s as needed. Max dose of 4000 mg daily allopurinol (ZYLOPRIM) 300 mg tablet Take one tablet by mouth daily. Take wi th food. apixaban (ELIQUIS) 5 mg tablet Take 5 mg by mouth twice daily. aspirin EC 81 mg tablet Take 81 mg by mouth daily. Take with food. atorvastatin (LIPITOR) 40 mg tablet Take one tablet by mouth daily. clopiDOGrel (PLAVIX) 75 mg tablet Take 75 mg by mouth daily. cyclobenzaprine (FLEXERIL) 10 mg tablet Take 10 mg by mouth three times elham y as needed. diltiazem CD (CARDIZEM CD) 240 mg capsule Take one capsule by mouth daily. docusate (COLACE) 100 mg capsule Take one capsule by mouth twice daily. fentaNYL (DURAGESIC) 25 mcg/hr patch Apply one patch to top of skin as direc ignacio every 72 hours gabapentin (NEURONTIN) 300 mg capsule Take 300 mg by mouth every 8 hours. melatonin 5 mg tab Take one tablet by mouth at bedtime as needed. metFORMIN (GLUCOPHAGE) 500 mg tablet Take 500 mg by mouth twice daily with m eals. metoprolol tartrate (LOPRESSOR) 50 mg tablet Take 1.5 tablets by mouth twice daily. (Patient taking differently: Take 100 mg by mouth twice daily.) Multivitamins with Fluoride (MULTI-VITAMIN PO) Take 1 tablet by mouth daily. ondansetron (ZOFRAN) 4 mg tablet Take one tablet by mouth every 8 hours as n eeded for Nausea. oxyCODONE (ROXICODONE, OXY-IR) 5 mg tablet Take one tablet to two tablets by mouth every 3 hours as needed pantoprazole DR (PROTONIX) 40 mg tablet Take 40 mg by mouth daily. polyethylene glycol 3350 (MIRALAX) 17 g packet Take one packet by mouth twic e daily. Indications: constipation senna/docusate (SENOKOT-S) 8.6/50 mg tablet Take one tablet by mouth twice d aily. traMADol (ULTRAM) 50 mg tablet Take 50 mg by mouth every 6 hours as needed f or Pain. zolpidem (AMBIEN) 10 mg tablet Take 10 mg by mouth at bedtime as needed for Sleep. Review of Systems Constitution: Negative for chills, decreased appetite and fever. HENT: Negative for congestion and sore throat. Cardiovascular: Positive for irregular heartbeat and leg swelling. Negative for chest pain and claudication. Respiratory: Positive for cough. Negative for shortness of breath, sleep disturb ances due to breathing and sputum production. Endocrine: Negative. Hematologic/Lymphatic: Negative. Musculoskeletal: Positive for back pain. Gastrointestinal: Negative for abdominal pain, constipation, diarrhea, nausea an d vomiting. Neurological: Negative for dizziness and numbness. Psychiatric/Behavioral: Negative for altered mental status. The patient does not have insomnia. Allergic/Immunologic: Negative for persistent infections. Physical Exam Constitutional: He is oriented to person, place, and time. He appears well-devel oped and well-nourished. No distress. KPS: 60s HENT: Head: Normocephalic. Neck: JVD present. Cardiovascular: Intact distal pulses. An irregular rhythm present. No murmur heard. B/l LE pedal edema. R > L foot. Pulmonary/Chest: Effort normal and breath sounds normal. No respiratory distress . He has no wheezes. He exhibits no tenderness. Abdominal: Soft. He exhibits no distension and no ascites. There is no tendernes s. Musculoskeletal: Right foot: There is no deformity. Left foot: There is no deformity. Feet: Left Foot: Skin Integrity: Positive for dry skin. Negative for ulcer or skin breakdown. Neurological: He is alert and oriented to person, place, and time. Skin: Skin is warm and dry. No rash noted. Psychiatric: He has a normal mood and affect. Nursing note and vitals reviewed. Vital Signs: Last Filed In 24 Hours Vital Signs: 24 Hour Range BP: 107/73 (06/05 1535) Temp: 36.8 C (98.2 F) (06/05 1535) Pulse: 108 (06/05 1535) Respirations: 18 PER MINUTE (06/05 1535) SpO2: 96 % (06/05 1535) Height: 185.4 cm (73") (06/05 1535) BP: (97-107)/(70-73) Temp: [36.5 C (97.7 F)-36.8 C (98.2 F)] Pulse: [70-108] Respirations: [18 PER MINUTE] SpO2: [96 %-100 %] Lab/Radiology/Other Diagnostic Tests: 24-hour labs: No results found for this visit on 06/05/19 (from the past 24 karuna r(s))., Hematology: Lab Results Component Value Date HGB 8.1 06/05/2019 HCT 25.7 06/05/2019 PLTCT 309 06/05/2019 WBC 2.4 06/05/2019 NEUT 50 06/05/2019 ANC 1.20 06/05/2019 LYMPH 14 04/14/2019 ALC 0.50 06/05/2019 GANESH 20 06/05/2019 AMC 0.50 06/05/2019 ABC 0.00 06/05/2019 MCV 95.0 06/05/2019 MCHC 31.6 06/05/2019 MPV 6.8 06/05/2019 RDW 24.3 06/05/2019 , Coagulation: No results found for: PT, PTT, INR, Enzymes: Lab Results Component Value Date AST 12 06/05/2019 ALT 7 06/05/2019 ALKPHOS 167 06/05/2019 , Cardiac markers: Lab Results Component Value Date TNI <0.03 05/20/2019 , Mg and PO4: Lab Results Component Value Date MG 1.9 05/26/2019 and HgbA1C: Lab Results Component Value Date HGBA1C 5.7 05/20/2019 Pertinent radiology reviewed., EKG Reviewed Traci Mcdaniel MD Internal Medicine PGY-1 Pager [phone], Available on Voalte ATTESTATION I personally have seen and examined the patient. I discussed the case with Dr.Pa fallon. I personally reviewed the history, laboratory and records and Path data as well as imaging studies from the PACS system as currently avilable. I discussed the case with Resident and concur with the documentation of history, physical ex am, assessment, and treatment plan. The content of this note was modified by me where necessary. Staff name: Blair Thakur MD Date: 06/05/2019 documented in this encounter Procedure Notes * Terry Mustafa MD - 06/10/2019 8:46 AM CDT Associated Order(s): CARDIAC CATH REPORT [facility] CARDIAC CATHETERIZATION REPORT Page 1 REFUGIO Montgomery : 1960 #: [id number] MR #/Billing ID #: [id number] / [id number] DATE: 06/10/2019 TAX AGENT: Terry Mustafa MD DICTATING PROVIDER: Terry Mustafa MD REFERRING PHYSICIAN: PROCEDURES PERFORMED: Ultrasound guided pseudoaneurysm thrombin injection. PROCEDURE: Mr. Lopez is a 59-year-old male with a recent procedure, who was fo und to have a large pseudoaneurysm of the right common femoral artery. It was e lected to go ahead and proceed with thrombin injection for closure as opposed to surgical ligation. The risks and benefits were discussed and we went ahead and proceeded. Mr. Lopez was brought to the cardiac catheterization lab in a fast ing, nonsedated state. Fentanyl was administered for discomfort. We visualized the pseudoaneurysm in the right common femoral artery with ultrasound and then proceeded to advanced a 25-gauge 2.5 inch needle into the pseudoaneurysm sac, ul timately injecting a total of 1.5 mL of thrombin into a large multi-lobed pseudo aneurysm. Upon completion of the injection, there appeared to be complete resol ution of active flow. There were no complications associated with the procedure . ASSESSMENT/PLAN: Large right common femoral artery pseudoaneurysm, status post closure with thrombin injection. PLAN: Will repeat ultrasound imaging this afternoon and proceed with bedrest fo r 4 hours. MD JOÃO Cheney/MedOma /[id number] cc: documented in this encounter Consult Notes * Rita Zambrano, WAREHOUSE DISTRIBUTION MANAGER - 06/09/2019 4:43 PM CDT Admission Date: 06/05/2019 Date of Consultation: 06/09/2019 LOS: 4 days Requesting Physician: Blair Thakur MD Consulting Physician: Castro Newsome MD Code Status: Full Code Reason for Consultation Opinion and recommendations regarding "patent SFA pseudoaneurysm in right groin found on lower extremity doppler - any intervention or further work up indicated ?" Principal Problem: Diffuse large B cell lymphoma (HCC) Active Problems: Lytic bone lesions on xray Essential hypertension DM (diabetes mellitus) (HCC) Chronic hepatitis C (HCC) Cardiomyopathy (HCC) CAD (coronary artery disease) Back pain Dyslipidemia Atrial fibrillation (HCC) Pulmonary embolus (HCC) Heart failure with reduced ejection fraction (HCC) DLBCL (diffuse large B cell lymphoma) (HCC) Assessment/Plan: Right groin superficial femoral artery pseudoaneurysm -Patient has recently had catheter directed TPA on 05/14/19 as well as drug-elut ing stents placed placed through a femoral approach on 05/15/19 - The pseudoaneurysm was an incidental finding on venous duplex which was done f or lower extremity swelling - He has no pain with palpation, or otherwise, and there is no bruit on exam. - He is on AC with Eliquis, Plavix, and aspirin Plan: Will discuss further with Interventional Cardiologists in the construction craft laborer tomorrow, regarding thrombin injection. It was discussed briefly with vascular surgery, a nd if he is not a good candidate for thrombin injection then we will take a watc h and wait approach as it has been 25 days since his procedure and he is complet crystal asymptomatic. We would repeat an ultrasound in one month to evaluate. I will make patient NPO tonight after midnight, except for medications with small sips of water for possible thrombin injection. Seen and discussed with Dr. Newsome Addendum: Dr. Mustafa reviewed ultrasound and feels it should be closed. He is in the lab tomorrow. Hold Eliquis in AM. May have rest of meds with small sips of w ater. NPO after midnight. Will place orders for thrombin injection. Rita Zambrano APRN-C Interventional Cardiology Pager [phone] Telemetry atrial fibrillation with controlled rate. Rita Zambrano APRN pager [phone] _ History of Present Illness Refugio Lopez is a 59 y.o. male patient with diffuse large B cell lymphoma st age IV, with diffuse lytic osseous lesions, extraosseous spinal mass, compressio n fractures with impingement of the thoracic spine, treated with methotrexate an d 2 doses of rituximab, and plans for R-CHOP therapy in the future. He also has coronary artery disease and has a history of NSTEMI and CARLY to LAD i n 2014. He was recently admitted to [facility] in [facility] from 04/17 9 - 05/19 after a syncopal event. He was found to have DVT and extensive pulmona ry emboli 05/14 and underwent catheter directed TPA. During same admission he allison d drug eluding stents x 2 placed to the right coronary artery, and atrial fibril lation with rapid ventricular rate. He was discharged on aspirin, plavix and lyndsay balbir. He has a history of ischemic cardiomyopathy. I did find an echo at [facility] showing an LVEF of 40 to 45% in 2016. His echo at outside [facility] in 2016 showed a normal LVEF at 55%. Echo on April 27, 2019 at showed ev idence of fairly extensive anteroapical akinesis suggesting prior anterior GA an d overall normal left ventricular ejection fraction of 55% with mild diastolic d ysfunction. Repeat echo on June 08, 2019 shows reduced left ventricular sy stolic function with an EF of 30% as well as apical and anterior akinesis. RV s ize and function were normal. There were no significant valve abnormalities. Jose roper has chronic Hep C (cleared), HTN, dyslipidemia, and diabetes mellitus. His ca rdiologist at [facility] was Dr. Vega. Mr. Lopez was admitted for planned chemotherapy. Right ower extremity venous du plex was obtained for right lower extremity edema greater than left and patient was noted to have a patent SFA pseudoaneurysm in the right groin, prompting Inte rventional Cardiology consult. There was no evidence of DVT. Past Medical History Medical History: Diagnosis Date Back pain CAD (coronary artery disease) Cardiomyopathy (HCC) Chronic hepatitis C (HCC) DM (diabetes mellitus) (HCC) Essential hypertension GERD (gastroesophageal reflux disease) Multiple myeloma and immunoproliferative neoplasms (HCC) Social History Social History Socioeconomic History Marital status: Spouse [...] file Social History Narrative Not on file Surgical History Surgical History: Procedure Laterality Date LUMBAR LAMINECTOMY N/A 04/26/2019 T12-L2 POSTERIOR INSTUMENTATION ARTHRODESIS, T12-L2 LAMINECTOMY, T12-L1 POSTERI OR LATERAL DECOMPRESSION, REPAIR OF INCIDENTAL NEUROTOMY, LOCAL BONE GRAFTING pe rformed by Enoch Pandey MD at [facility]/Periop HX HEART CATHETERIZATION KYPHOPLASTY Family History Family History Problem Relation Age of Onset Cancer-Lung Mother Cancer-Pancreas Father Medications allopurinol (ZYLOPRIM) tablet 300 mg 300 mg Oral QDAY amiodarone (CORDARONE) tablet 400 mg 400 mg Oral BID Followed by [START ON 06/16/2019] amiodarone (CORDARONE) tablet 400 mg 400 mg Oral QDAY Followed by [START ON 06/23/2019] amiodarone (CORDARONE) tablet 200 mg 200 mg Oral QDAY apixaban (ELIQUIS) tablet 5 mg 5 mg Oral BID aspirin EC tablet 81 mg 81 mg Oral QDAY atorvastatin (LIPITOR) tablet 40 mg 40 mg Oral QDAY clopiDOGrel (PLAVIX) tablet 75 mg 75 mg Oral QDAY fentaNYL (DURAGESIC) 25 mcg/hr patch 1 patch 1 patch Transdermal Q72H* furosemide (LASIX) tablet 40 mg 40 mg Oral QDAY gabapentin (NEURONTIN) capsule 300 mg 300 mg Oral Q8H* insulin aspart U-100 (NOVOLOG FLEXPEN) injection PEN 0-12 Units 0-12 Units Subcu taneous ACHS (22) leucovorin calcium injection 50 mg 50 mg Intravenous Q6H* losartan (COZAAR) tablet 25 mg 25 mg Oral QDAY metoprolol tartrate (LOPRESSOR) tablet 75 mg 75 mg Oral BID alteplase PRN (Defect Repairer Glassware from Rx), cyclobenzaprine TID PRN, docusate BID PRN, Junior zepam (ATIVAN) injection Q6H PRN, LORazepam Q6H PRN, melatonin QHS PRN, ondans etron Q8H PRN, oxyCODONE Q3H PRN, polyethylene glycol 3350 BID PRN, prochlorpera zine Q6H PRN, prochlorperazine Q6H PRN, senna/docusate BID PRN, sodium bicarbona te 1 mEq/mL IVPB (max conc) PRN (Defect Repairer Glassware from Rx), sodium chloride 0.9 % TKO in fusion PRN, sodium chloride 0.9% irrigation bottle PRN Allergies No Known Allergies Review of Systems General: fatigue Eyes: denies vision changes, vision loss, blurred or double vision Ears/Nose/Throat: denies hearing deficits, sore throat, or nasal congestion Cardiovascular: as per HPI Respiratory: denies cough, sputum production, wheezing Gastrointestinal: denies abdominal pain, N/V diarrhea, constipation, dark or tar ry stools or blood in stools. Genitourinary: denies hematuria/dysuria Musculoskeletal: denies myalagias and arthralgias Skin:denies open wounds or sores Neurologic: denies tremors, seizures, paralysis Psychiatric: denies depression, anxiety Endocrine: denies polyuria, polydipsia, heat and cold intolerance Heme/Lymphatic: denies bleeding or blood clotting disorders Allergic/Immunologic: negative/normal. Vital Signs: Most Recent Vital Signs: 24 Ho ur Range BP: 97/67 (06/09 1548) Temp: 36.3 C (97.4 F) (06/09 154) Pulse: 66 (06/09 154) Respirations: 16 PER MINUTE (06/09 1548) SpO2: 100 % (06/09 1548) BP: (97-114)/(67-83) Temp: [36.3 C (97.3 F)-36.6 C (97.9 F)] Pulse: [63-97] Respirations: [14 PER MINUTE-18 PER MINUTE] SpO2: [96 %-100 %] Vitals: 06/08/19 0955 06/08/19 1617 06/09/19 0905 Weight: 92.1 kg (203 lb) 90.3 kg (199 lb) 90.4 kg (199 lb 3.2 oz) Intake/Output Summary (Last 24 hours) at 06/09/2019 1643 Last data filed at 06/09/2019 1514 Gross per 24 hour Intake 1760 ml Output 3500 ml Net -1740 ml Stool Occurrence: 0 Physical Exam Physical Exam General Appearance: well developed, appears stated age, no acute distress Neck Veins: neck veins are not distended Auscultation/Percussion: lungs clear to auscultation, no rales or rhonchi, no wh eezing Cardiac Auscultation: irregularly irregular rate and rhythm, S1, S2 normal, no rub, no gallop, murmurs, Carotid Arteries: no bruits Pedal Pulses: normal symmetric pedal pulses Lower Extremity : bipedal edema R.L, 2+ DP/PT pulses Abdominal Exam: soft, non-tender, non-distended, normal bowel sounds. No abdomin al bruits Neurologic Exam: neurological assessment grossly intact Labs Hematology: Lab Results Component Value Date HGB 8.4 06/09/2019 HCT 25.4 06/09/2019 PLTCT 337 06/09/2019 WBC 4.3 06/09/2019 NEUT 82 06/09/2019 ANC 3.50 06/09/2019 LYMPH 16 06/07/2019 ALC 0.40 06/09/2019 GANESH 8 06/09/2019 AMC 0.30 06/09/2019 ABC 0.00 06/09/2019 MCV 89.2 06/09/2019 MCHC 33.0 06/09/2019 MPV 6.6 06/09/2019 RDW 21.0 06/09/2019 , Coagulation: No results found for: PT, PTT, INR, General Chemistry: Lab Results Component Value Date NA 135 06/09/2019 K 4.0 06/09/2019 CL 97 06/09/2019 GAP 8 06/09/2019 BUN 13 06/09/2019 CR 0.47 06/09/2019 GLU 328 06/09/2019 CA 7.7 06/09/2019 ALBUMIN 3.2 06/09/2019 OBSCA 1.18 04/26/2019 MG 2.1 06/09/2019 TOTBILI 0.4 06/09/2019 , Enzymes: Lab Results Component Value Date AST 11 06/09/2019 ALT 6 06/09/2019 ALKPHOS 164 06/09/2019 , Cardiac markers: Lab Results Component Value Date TNI <0.03 05/20/2019 , Mg and PO4: Lab Results Component Value Date MG 2.1 06/09/2019 and Lipid Profile: Lab Results Component Value Date CHOL 139 05/21/2019 TRIG 198 05/21/2019 HDL 55 05/21/2019 LDL 64 05/21/2019 VLDL 40 05/21/2019 Diagnostic studies IMPRESSION 1. No evidence of femoral popliteal DVT in the right lower extremity. 2. Patent SFA pseudoaneurysm, right groin. Rita Zambrano APRN pager [phone] Associated attestation - Castro Newsome MD - 06/10/2019 8:04 AM CDT Vascular medicine staff attestation note: This note reflects my evaluation and assessment of the patient on 06/09/2019. I saw the patient and discussed her findings and plan with him and his along with advanced practice provider Ms. Rita Mata. The assessment and plan det colin in her note was formulated by me. In summary the patient has multiple comorbidities including hematological malign bjorn, coronary artery disease with recent percutaneous intervention about 3 week s ago in outside facility and atrial fibrillation and DVT PE requiring catheter directed thrombolysis about 3 weeks ago also. 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 Surprisingly the patient is completely asymptomatic e santiago on deep palpation in the groin and I could not hear a bruit. This likely allison ppened about 3 weeks ago during cardiac catheterization from the right groin. With the patient being on antiplatelet as well as anticoagulant therapy it is un likely that the pseudoaneurysm will close on its own especially since it shows b risk flow to and fro on the duplex. I have discussed this case with Dr. Terry Mustafa in the cardiac catheterization la boratory who has reviewed the films and feels that he will be a candidate for th rombin injection in April and the final determination will be during the proced ure which can be safely done. If thrombin injection is performed then we will r epeat a duplex in 24 hours to see if it continues to be successful and the patie nt can be discharged home from our side. If the thrombin injection is not successful the option would be careful observat ion versus surgical resection. Since he is completely asymptomatic we could cer tainly make a case for close observation especially since the pseudoaneurysm is at least 3 weeks old. The patient does have a oxyhydrogen welder in [facility] who could follow it closely there. The other option is surgical consultation with resection. We will discuss with the patient after thrombin i njection procedure if the need arise. In regards to antiplatelet and anticoagul ation therapy I think it would be okay to discontinue aspirin and just continue his anticoagulant therapy and clopidogrel at this time * Susana Garcia MD - 06/06/2019 10:13 AM CDT Associated Order(s): CONSULT HEART FAILURE PHYSICIAN Subjective: Patient is a pleasant 59 y.o. male with past medical history significant for CAD s/p stent placement in 2014 (unknown anatomy), type 2 diabetes mellitus, HTN, h epatitis C s/p curative treatment, admission to [facility] in [place] 05/14 - for dyspnea and was found to be in atrial fibrillation with RVR and have b ilateral PEs. He underwent catheter directed thrombolysis and was started on lyndsay balbir. Lower extremity dopplers showed bilateral DVTs. He was also diagnosed with an RCA lesion and underwent PCI and stent placement to RCA. He was started on m etoprolol tartrate and diltiazem for rate control and discharged. He reports nisha t he had atrial fibrillation after his heart attack in 2014 but it was brief so he was not continued on medication for it at that time. After discharge from [facility] he followed up with a hand knitter who increased the metoprolol because his heart rate continued to be too fast. Today he reports that he is back to am bulating and does not notice too much dyspnea on exertion. He has felt palpitati ons/rapid heart rate. He does report feeling intermittent dyspnea and tightness in his chest at rest and has been sleeping on an incline but denies orthopnea. H e thinks he does occasionally wake up short of breath. He noted lower extremity swelling that first started 2-3 days ago. He denies bruising, bleeding, chest pa in. Patient Active Problem List Diagnosis Date Noted DLBCL (diffuse large B cell lymphoma) (HCC) 06/05/2019 Pulmonary embolus (HCC) 05/27/2019 Heart failure with reduced ejection fraction (HCC) 05/27/2019 Atrial fibrillation (HCC) 05/25/2019 Moderate malnutrition (HCC) 04/28/2019 Class: Chronic Diffuse large B cell lymphoma (HCC) 04/24/2019 Lytic bone lesions on xray 03/18/2019 Dyslipidemia 03/18/2019 Essential hypertension DM (diabetes mellitus) (HCC) Chronic hepatitis C (HCC) Cardiomyopathy (HCC) CAD (coronary artery disease) Back pain Apoloniadavid Bertin Medical History: Diagnosis Date Back pain CAD [...] at Main OR/Periop HX HEART CATHETERIZATION KYPHOPLASTY No Known Allergies Family History Problem Relation Age of Onset Cancer-Lung Mother Cancer-Pancreas Father No current facility-administered medications on file prior to encounter. Current Outpatient Medications on File Prior to Encounter Medication Sig Dispense Refill acetaminophen (TYLENOL) 325 mg tablet Take two tablets by mouth every 6 hour s as needed. Max dose of 4000 mg daily 30 tablet 0 allopurinol (ZYLOPRIM) 300 mg tablet Take one tablet by mouth daily. Take wi th food. 90 tablet 3 apixaban (ELIQUIS) 5 mg tablet Take 5 mg by mouth twice daily. aspirin EC 81 mg tablet Take 81 mg by mouth daily. Take with food. atorvastatin (LIPITOR) 40 mg tablet Take one tablet by mouth daily. 90 table t 3 clopiDOGrel (PLAVIX) 75 mg tablet Take 75 mg by mouth daily. cyclobenzaprine (FLEXERIL) 10 mg tablet Take 10 mg by mouth three times elham y as needed. diltiazem CD (CARDIZEM CD) 240 mg capsule Take one capsule by mouth daily. 3 0 capsule 1 docusate (COLACE) 100 mg capsule Take one capsule by mouth twice daily. 180 capsule 3 fentaNYL (DURAGESIC) 25 mcg/hr patch Apply one patch to top of skin as direc ignacio every 72 hours 10 patch 0 gabapentin (NEURONTIN) 300 mg capsule Take 300 mg by mouth every 8 hours. melatonin 5 mg tab Take one tablet by mouth at bedtime as needed. 30 tablet 0 metFORMIN (GLUCOPHAGE) 500 mg tablet Take 500 mg by mouth twice daily with m eals. metoprolol tartrate (LOPRESSOR) 50 mg tablet Take 1.5 tablets by mouth twice daily. (Patient taking differently: Take 100 mg by mouth twice daily.) 90 tablet 1 Multivitamins with Fluoride (MULTI-VITAMIN [...] pantoprazole DR (PROTONIX) 40 mg tablet Take 40 mg by mouth daily. polyethylene glycol 3350 (MIRALAX) 17 g packet Take one packet by mouth twic e daily. Indications: constipation 12 each 0 senna/docusate (SENOKOT-S) 8.6/50 mg tablet Take one tablet by mouth twice d aily. 60 tablet 0 traMADol (ULTRAM) 50 mg tablet Take 50 mg by mouth every 6 hours as needed f or Pain. zolpidem (AMBIEN) 10 mg tablet Take 10 mg by mouth at bedtime as needed for Sleep. Review of Symptoms: A comprehensive review of systems was negative except for: Cardiovascular: positive for chest pressure/discomfort, palpitations, irregular heart beats, lower extremity edema Subjective: Physical Exam General Appearance: awake, alert, no apparent distress Head: normocephalic, atraumatic Eyes: conjunctivae and lids normal, pupils are equal and round Pulmonary: no increase in work of breathing, coarse crackles bilaterally to from base to mid lung ingram, no rhonchi, no wheezing Cardiovascular: tachycardic, irregularly irregular rhythm, normal S1, S2, no mur murs, rubs or gallops, normal peripheral pulses, 2+ lower extremity edema Abdomen: soft, non-tender, no masses, bowel sounds normal, no organomegaly Skin: warm, dry, rashes or lesions Neurologic Exam: neurological assessment grossly intact Cardiographics ECG: atrial fibrillation with RVR at 120 bpm, probable old septal myocardial inf arction Echocardiogram: Not done Lab Only on 06/05/2019 Component Date Value Uric Acid 06/05/2019 3.9* Sodium 06/05/2019 139 Potassium 06/05/2019 4.4 Chloride 06/05/2019 107 Glucose 06/05/2019 168* Blood Urea Nitrogen 06/05/2019 11 Creatinine 06/05/2019 0.50 Calcium 06/05/2019 8.6 Total Protein 06/05/2019 5.9* Total Bilirubin 06/05/2019 0.5 Albumin 06/05/2019 3.5 Alk Phosphatase 06/05/2019 167* AST (SGOT) 06/05/2019 12 CO2 06/05/2019 26 ALT (SGPT) 06/05/2019 7 Anion Gap 06/05/2019 6 eGFR Non 06/05/2019 >60 eGFR 06/05/2019 >60 White Blood Cells 06/05/2019 2.4* RBC 06/05/2019 2.70* Hemoglobin 06/05/2019 8.1* Hematocrit 06/05/2019 25.7* MCV 06/05/2019 95.0 MCH 06/05/2019 30.0 MCHC 06/05/2019 31.6* RDW 06/05/2019 24.3* Platelet Count 06/05/2019 309 MPV 06/05/2019 6.8* Neutrophils 06/05/2019 50 Lymphocytes 06/05/2019 20* Monocytes 06/05/2019 20* Eosinophils 06/05/2019 9* Basophils 06/05/2019 1 Absolute Neutrophil Count 06/05/2019 1.20* Absolute Lymph Count 06/05/2019 0.50* Absolute Monocyte Count 06/05/2019 0.50 Absolute Eosinophil Count 06/05/2019 0.20 Absolute Basophil Count 06/05/2019 0.00 Anti HBc Total 06/05/2019 NEG Anti HBs 06/05/2019 <2.5 HBsAg 06/05/2019 NEG Anti HCV 06/05/2019 Reactive, See confirmation test HEP C PCR Quant.* HIV 1 and 2 AG AB Screen 06/05/2019 NEG No results displayed because visit has over 200 results. Nurse Only on 05/06/2019 Component Date Value White Blood Cells 05/06/2019 4.9 RBC 05/06/2019 3.31* Hemoglobin 05/06/2019 9.2* Hematocrit 05/06/2019 28.9* MCV 05/06/2019 87.1 MCH 05/06/2019 27.9 MCHC 05/06/2019 32.0 RDW 05/06/2019 19.5* Platelet Count 05/06/2019 218 MPV 05/06/2019 7.0 Neutrophils 05/06/2019 72 Lymphocytes 05/06/2019 12* Monocytes 05/06/2019 13* Eosinophils 05/06/2019 2 Basophils 05/06/2019 1 Absolute Neutrophil Count 05/06/2019 3.50 Absolute Lymph Count 05/06/2019 0.60* Absolute Monocyte Count 05/06/2019 0.60 Absolute Eosinophil Count 05/06/2019 0.10 Absolute Basophil Count 05/06/2019 0.10 Uric Acid 05/06/2019 4.4 Lactate Dehydrogenase 05/06/2019 377* Sodium 05/06/2019 133* Potassium 05/06/2019 4.1 Chloride 05/06/2019 97* Glucose 05/06/2019 149* Blood Urea Nitrogen 05/06/2019 9 Creatinine 05/06/2019 0.55 Calcium 05/06/2019 9.1 Total Protein 05/06/2019 6.4 Total Bilirubin 05/06/2019 0.7 Albumin 05/06/2019 3.4* Alk Phosphatase 05/06/2019 107 AST (SGOT) 05/06/2019 13 CO2 05/06/2019 28 ALT (SGPT) 05/06/2019 9 Anion Gap 05/06/2019 8 eGFR Non 05/06/2019 >60 eGFR 05/06/2019 >60 No results displayed because visit has over 200 results. Assessment: is a pleasant 59 y.o. male with past medical history significant for C AD s/p stent placement in 2014 (unknown anatomy), type 2 diabetes mellitus, HTN, hepatitis C s/p curative treatment, admission to [facility] in [place] 05/14 - 05/18/19 for atrial fibrillation with RVR, diagnosed with bilateral PEs s/p tiago ter directed thrombolysis and lower extremity DVTs. He was also diagnosed with a n RCA lesion and underwent PCI and stent placement to RCA. He was started on met oprolol tartrate and diltiazem for rate control and discharged. He remains in at rial fibrillation and rate control has not been optimal despite high doses of AV alberto blocking agents and he may benefit from cardioversion but would need to r emain on therapeutic anticoagulation for at least a month afterwards. His chemot herapy regimen was discussed with (heme/onc) who reports that he is unlikely to have a significant drop in his cell counts and unlikely to need to s top anticoagulation. 1. Atrial fibrillation with RVR 2. Coronary artery disease s/p RCA stent 05/15/19, stent in 2014 3. Bilateral pulmonary emboli s/p catheter directed thrombolysis 4. Heart Failure with Recovered Ejection Fraction 5. Type 2 diabetes mellitus 6. DLBCL with spinal cord involvement s/p laminectomy and arthrodesis, undergoin g chemotherapy Plan: - recommend starting telemetry so that we can assess the effectiveness of rate c ontrol (ordered) - recommend TTE to assess ventricular function after the recent PE/RCA stenting (ordered) - recommend 250mcg IV digoxin x 1 and then starting 250 mcg oral daily tomorrow (ordered) - continue metoprolol and diltiazem at current doses - possible VITA and cardioversion next week - continue dual antiplatelet therapy until 06/15/19, after this aspirin can be st opped and the patient can continue on plavix and apixaban The patient was seen and discussed with attending hand knitter . Susana Garcia MD, PGY-6 Cardiovascular Disease Pager [phone] Associated attestation - Inocencio Mcdonough MD - 06/06/2019 7:23 PM CDT Cardiology Staff Note Mr. Lopez is a 59-year-old male with diffuse large B-cell lymphoma with spinal cord involvement status post debulking on 05/05/2019, CAD status post PCI and fish nt placement to the LAD in 2014, with more recent PCI and stent placement to the RCA in April 2019, mild LV systolic dysfunction with an EF of 40 to 45%, hyper tension, diabetes, hepatitis C status post therapy, prior episode of atrial fibr illation in 2014 in the setting of his GA, with now persistent A. fib, which was in the setting of bilateral PE treated with catheter directed thrombolytics, as well as DVT, and more recent lower extremity edema. His left heart catheterization at [facility] was on 05/15/2019, the left main wa s normal, the LAD had mild to moderate LAD disease, the LAD stent was patent wit h mild in-stent restenosis, there is a small diagonal with severe disease, the l eft circumflex had mild plaquing, the RCA had a proximal 30 to 40% stenosis, the mid segment had an 80% stenosis. The LVEDP was 23 mmHg. He underwent PCI and CARLY to the RCA with a 3.0 mm Xience drug-eluting stent. His echocardiogram at [facility] was on 05/14/2019, the EF was 40 to 45%, the left atrium was dilated w ith a AP dimension of 4.4 cm, the RV function was normal, there is trace TR, the peak pulmonary pressure was 20 to 25 mmHg. The last prior echocardiogram in our system was on 04/27/2019, which showed an EF of 55%, there was subtle anterior apical akinesis, RV function was normal, mild MR, trace TR, the peak pulmonary pressure was 33 mmHg. His CBC today showed a hemoglobin of 6.9, platelet count 281, white count 2.1. The sodium is 137, potassium 3.8, chloride 103, bicarb 27, creatinine 0.50. His ECG demonstrated atrial flutter with a heart rate of 122, there is delayed R wave progression, there were none specific T wave changes. Mr. Pace definitely has a complex set of medical problems. His atrial fibrill ation is been persistent since late April. I do not think they pursued a rhyth m control strategy earlier, do the setting of the acute PE. I think at some point during the hospitalization we could consider a more aggres sive rhythm control strategy, I think it would help in management of his atrial fibrillation, given the difficulty with rate controlled on fairly high doses of AV alberto agents. I am a little concerned about his overall counts. I appreciat e the hematology team discussing him in greater detail this afternoon. The over all thought is that his counts should remain stable on his current therapy. We can continue to monitor closely before we take that approach. He would need 4 w eeks of uninterrupted anticoagulation should we pursue cardioversion. The meantime I think we should load him start digoxin to try and help with his r ate control. Given high doses of his other AV alberto agents, I think we should a void a full load. I agree with the IV diuresis, he is receiving IV Lasix today. He reports good u rine output already. He is on triple therapy, if our plan is to continue the anticoagulation uninterr upted, I think we could discontinue his aspirin on June 15, 1930 days after his intervention. We will continue to follow with you. ATTESTATION I personally performed the lewis portions of the E/M visit, discussed case with re janette and concur with resident documentation of history, physical exam, assessm ent, and treatment plan unless otherwise noted. Staff name: Inocencio Mcdonough MD Date: 06/06/2019 documented in this encounter Miscellaneous Notes * Case Mgmt DC Plan - Miriam Rao - 06/11/2019 11:08 AM CDT Case Management Progress Note NAME:Refugio Lopez :[birth year] AGE: 59 y.o. ADMISSION DATE: 06/05/2019 DAYS ADMITTED: LOS: 6 days Todays Date: 06/11/2019 Plan Discharge home today. Jaime completed Antelope Davy referral for Jun.16 9. Interventions ? Support Support: Pt/Family Updates re:POC or DC Plan, Patient Education ? Info or Referral Information or Referral to Community Resources: Lodging and/or Detention(Jaime compl eted Antelope Davy referral for 2018) ? Discharge Planning ? Medication Needs ? Financial ? Legal ? Other Disposition ? Expected Discharge Date Expected Discharge Date: 06/11/19 Expected Discharge Time: 1108 ? Transportation Does the patient need discharge transport arranged?: No Transportation Name, Phone and Availability #1: , Cristal P: Transportation Name, Phone and Availability #2: [id number] P : Does the patient use Medicaid Transportation?: No ? Next Level of Care (Acute Psych discharges only) ? Discharge Disposition Durable Medical Equipment No service has been selected for the patient. Destination No service has been selected for the patient. Home Care No service has been selected for the patient. Dialysis/Infusion No service has been selected for the patient. Miriam Rao LMSW *[phone] * Care Plan - Elza Levin RN - 06/08/2019 6:38 PM CDT Patient able to participate in plan of care decisions. CHG device care completed this shift. Patient absent of signs and symptoms of blood stream associated inf ection. Patient compliant with fall bundle and absent of falls this shift. * Care Plan - Colleen Albarran RN - 06/07/2019 2:50 PM CDT Pt and family educated * Case Mgmt DC Plan - Miriam Tolliver RN - 06/07/2019 10:03 AM CDT Case Management Admission Assessment NAME:Refugio Lopez :1959 AGE: 59 y.o. ADMISSION DATE: 06/05/2019 DAYS ADMITTED: LOS: 2 days Todays Date: 06/07/2019 Source of Information: Patient and patient's , Cristal Plan Plan: Case Management Assessment, Discharge Planning for Home Anticipated, Cam t PRN with SW/NCM Services "59 yr old male w/ PMH of DM Type II, cardiomyopathy, CAD s/p CARLY x2 05/15/19 and 2014, DVT and possible massive PE 05/14 s/p catheter directed TPA, chronic hepat itis C s/p curative treatment, HTN, DLBCL w/ bulky spinal cord involvement s/p l aminectomy and arthrodesis on 04/26 who is admitted for planned chemotherapy." This CM met with pt for assessment [...] at bedside. *Pt states he continues to improve with self-care & ADL's LOCATION DIRECTOR & has no concerns for discharge at this time. *DC Transport: Pts spouse, Cristal P: *DME: RW, SPC *HH / HI: [facility] O: (pt not current) *SNF / IPR / LTACH: [facility] IPR (January & February 2019 for ~1 week) *Primary Insurance: [facility] *Secondary Insurance: N/A *Rx coverage: [facility] *No NCM needs identified at this time. NCM encouraged pt to reach out if any nee ds should change. Pt verbalized understanding. *NCM will continue to follow and assess for additional needs through discharge. Patient Address/Phone [address] [facility] [phone] (home) Emergency Contact Extended Emergency Contact Information Primary Emergency Contact: cristal lopez Relation: Spouse Healthcare Directive Transportation Does the patient need discharge transport arranged?: No Transportation Name, Phone and Availability #1: Cristal P: Transportation Name, Phone and Availability #2: [id number] P : Does the patient use Medicaid Transportation?: No Expected Discharge Date Expected Discharge Date: 06/12/19 Living Situation Prior to Admission ? Living Arrangements Type of Residence: Home, independent Living Arrangements: Spouse/significant other(with Cristal pacheco) Bathroom Shower / Tub: Walk-in Shower, Tub/Shower Unit(with standard toilet) How many levels in the residence?: 1 Can patient live on one level if needed?: Yes Does residence have entry and/or side stairs?: Yes(2-3 FISH. Pt states his mobili ty is improving and his continues to be a big help to him) Assistance needed prior to admit or anticipated on discharge: Yes Who provides assistance or could if needed?: Cristal pacheco (has intermittent FMLA that started 03/17/19) Are they in good health?: Yes Can support system provide 24/7 care if needed?: Maybe ? Level of Function Prior level of function: Needs assist with ADLs Which ADLs require assistance?: mobility, transportation, bathing Who assists with ADLs?: Cristal pacheco ? Cognitive Abilities Cognitive Abilities: Alert and Oriented, Engages in problem solving and planning , Participates in decision making, Recognizes impact of health condition on life style, Understands nature of health condition Financial Resources ? Coverage Primary Insurance: Commercial insurance([facility] / [employer]) Secondary Insurance: No insurance Additional Coverage: RX([facility] [place]. Pt states he has no conc erns with cost of medications at this time) ? Source of Income Source Of Income: Employed, STD employer(FT on STD through employer that started 01/27/19 through 07/28/19. They will be looking into LTD soon once STD runs out) ? Financial Assistance Needed? None Psychosocial Needs ? Mental Health Mental Health History: No ? Substance Use History Substance Use History Screen: No ? Other None Current/Previous Services ? PCP Bertin Cole, , ? Pharmacy [facility] #[id number] [facility] [address] [facility] [address] [place] [id number] [facility] [address] [facility] [id number] [place] [id number] ? Durable Medical Equipment Durable Medical Equipment at home: Roller Walker, Single Point Cane ? Home Health Receiving home health: In the past Agency name: [facility] (not current) Would patient use this agency again?: [...] ? Outpatient Therapy PT: No OT: No PROFESSOR/NURSE ANESTHETIST: No ? Correction Facility/Shelter SNF: No NH: No ? Inpatient Rehab IPR: In the past When did patient receive care?: January & February 2019 for 1 week Name of Facility: [facility] I[facility] Would patient return for future services?: Yes ? Long-Term Acute Care Hospital LTACH: No ? Acute Hospital Stay Acute Hospital Stay: Yes Was patient's stay within the last 30 days?: Yes Name of Hospital: [facility] When did patient receive care?: 05/20/19 - 05/26/19 Readmission Code Group: 8. Scheduled Readmission 8. Scheduled Readmission: 8a. Oncology Miriam Tolliver, RN, BSN Nurse Engine DispatcherNurse Healthcare Manager / Surgical Non-Transplant Pager: * Advanced Care Planning/Resuscitation Status - Traci Mcdaniel MD - 06/05/2019 6:17 PM CDT Advance Care Planning/Resuscitation Status Conversation Individuals present for advance care planning conversation: nurse, patient and o ther: Heather Pertinent details of conversation (including direct quotes from patient or surro gate): "I want you to do everything, but if at some point it is not working, I w ant you to quit. But I want you guys to do everything to the best measures." Outcome of conversation: Full Code Documents completed as a result of this conversation: None Other documents present, which outline patient/surrogate wishes: None Attestation? I have spent a total of 16 minutes in [id number] discussion of pa tient condition, prognosis, treatment goals, and/or advance care planning with t he patient and/or surrogate decision makers. documented in this encounter Plan of Treatment Date/Time Name Type Priority Associated Diag noses 06/06/2019 6:33 AM CDT TRANSFUSE RBC'S Blood Bank Routine NON-BLEEDING PT 06/06/2019 6:33 AM CDT TRANSFUSE RBC'S Blood Bank Routine NON-BLEEDING PT documented as of this encounter Goals Goal Patient Associated Recent Progress Patient-Stat Aut hor Goal Type Problems ed? GOAL General No Carmelina Jeffrey RN Note: Back to work GOAL General Yes Selam Kirk RN Note: "To get better and beat this disease" documented as of this encounter Procedures Comments Procedure Name Priority Date/Time Associated Diag nosis POC GLUCOSE 06/11/2019 8:26 AM CDT HC PHOSPHOROUS, SERUM Routine 06/11/2019 (PO4CT) 5:59 AM CDT HC MAGNESIUM (MGCT) Routine 06/11/2019 5:59 AM CDT HC COMPREHENSIVE Routine 06/11/2019 METABOLIC PANEL (CH12CT) 5:59 AM CDT HC METHOTREXATE; QUANT Routine 06/11/2019 Diffuse large B-cell 5:59 AM CDT lymphoma, unspecified body region (HCC) HC URIC ACID Routine 06/11/2019 5:59 AM CDT HC LD(LDH;LACTIC Routine 06/11/2019 DEHYDROGENASE) 5:59 AM CDT CONSULT IV THERAPY TEAM Routine 06/11/2019 5:32 AM CDT HC CBC W AUTOMATED DIFF Routine 06/11/2019 (HPDCT) 4:58 AM CDT POC GLUCOSE 06/10/2019 10:12 PM CDT POC GLUCOSE 06/10/2019 5:08 PM CDT PV GROIN DUPLEX SCAN RT Routine 06/10/2019 ONLY 3:10 PM CDT POC GLUCOSE 06/10/2019 10:37 AM CDT POC GLUCOSE 06/10/2019 8:59 AM CDT PV SONO GUID CENT Routine 06/10/2019 8:57 AM CDT CARDIAC CATH REPORT 06/10/2019 8:46 AM CDT CARDIAC CATH REPORT Routine 06/10/2019 Pseudoaneu rysm of right 6:35 AM CDT femoral artery (HCC) HC PHOSPHOROUS, SERUM Routine 06/10/2019 (PO4CT) 3:20 AM CDT HC MAGNESIUM (MGCT) Routine 06/10/2019 3:20 AM CDT HC COMPREHENSIVE Routine 06/10/2019 METABOLIC PANEL (CH12CT) 3:20 AM CDT HC CBC W AUTOMATED DIFF Routine 06/10/2019 (HPDCT) 3:20 AM CDT HC METHOTREXATE; QUANT Routine 06/10/2019 Diffuse large B-cell 3:20 AM CDT lymphoma, unspecified body region (HCC) HC URIC ACID Routine 06/10/2019 3:20 AM CDT HC LD(LDH;LACTIC Routine 06/10/2019 DEHYDROGENASE) 3:20 AM CDT POC GLUCOSE 06/09/2019 10:18 PM CDT UA REFLEX CULTURE LABEL Routine 06/09/2019 8:03 PM CDT URINALYSIS MICROSCOPIC Routine 06/09/2019 REFLEX TO CULTURE 8:03 PM CDT HC URINALYSIS UAR Routine 06/09/2019 8:03 PM CDT HC CULTURE-URINE 06/09/2019 8:03 PM CDT POC GLUCOSE 06/09/2019 5:30 PM CDT US DOPPLER VENOUS W EXTRM Routine 06/09/2019 RIGHT 2:13 PM CDT POC GLUCOSE 06/09/2019 12:20 PM CDT POC GLUCOSE 06/09/2019 7:58 AM CDT HC PHOSPHOROUS, SERUM Routine 06/09/2019 (PO4CT) 4:45 AM CDT HC MAGNESIUM (MGCT) Routine 06/09/2019 4:45 AM CDT HC COMPREHENSIVE Routine 06/09/2019 METABOLIC PANEL (CH12CT) 4:45 AM CDT HC CBC W AUTOMATED DIFF Routine 06/09/2019 (HPDCT) 4:45 AM CDT HC METHOTREXATE; QUANT Routine 06/09/2019 Diffuse large B-cell 4:45 AM CDT lymphoma, unspecified body region (HCC) HC URIC ACID Routine 06/09/2019 4:45 AM CDT HC LD(LDH;LACTIC Routine 06/09/2019 DEHYDROGENASE) 4:45 AM CDT POC GLUCOSE 06/08/2019 9:58 PM CDT HC VRE SCREEN Routine 06/08/2019 9:13 PM CDT POC GLUCOSE 06/08/2019 6:41 PM CDT HC METHOTREXATE; QUANT Routine 06/08/2019 Diffuse large B-cell 5:00 PM CDT lymphoma, unspecified body region (HCC) HC MAGNESIUM Routine 06/08/2019 5:00 PM CDT HC BASIC METABOLIC PANEL Routine 06/08/2019 5:00 PM CDT POC GLUCOSE 06/08/2019 11:55 AM CDT 2-D + DOPPLER Routine 06/08/2019 ECHOCARDIOGRAM 10:17 AM CDT POC GLUCOSE 06/08/2019 8:15 AM CDT HC PHOSPHOROUS, SERUM Routine 06/08/2019 (PO4CT) 5:54 AM CDT HC MAGNESIUM (MGCT) Routine 06/08/2019 5:54 AM CDT HC COMPREHENSIVE Routine 06/08/2019 METABOLIC PANEL (CH12CT) 5:54 AM CDT HC CBC W AUTOMATED DIFF Routine 06/08/2019 (HPDCT) 5:54 AM CDT HC URIC ACID Routine 06/08/2019 5:54 AM CDT HC LD(LDH;LACTIC Routine 06/08/2019 DEHYDROGENASE) 5:54 AM CDT POC GLUCOSE 06/08/2019 4:26 AM CDT POC GLUCOSE 06/08/2019 1:43 AM CDT POC GLUCOSE 06/07/2019 11:08 PM CDT POC GLUCOSE 06/07/2019 6:05 PM CDT ECG 12-LEAD Routine 06/07/2019 2:06 PM CDT HC MAGNESIUM Routine 06/07/2019 12:09 PM CDT HC BASIC METABOLIC PANEL Routine 06/07/2019 12:09 PM CDT POC GLUCOSE 06/07/2019 11:15 AM CDT POC GLUCOSE 06/07/2019 7:58 AM CDT HC PHOSPHOROUS, SERUM Routine 06/07/2019 (PO4CT) 2:00 AM CDT HC MAGNESIUM (MGCT) Routine 06/07/2019 2:00 AM CDT HC COMPREHENSIVE Routine 06/07/2019 METABOLIC PANEL (CH12CT) 2:00 AM CDT HC CBC W AUTOMATED DIFF Routine 06/07/2019 (HPDCT) 2:00 AM CDT HC URIC ACID Routine 06/07/2019 2:00 AM CDT HC LD(LDH;LACTIC Routine 06/07/2019 DEHYDROGENASE) 2:00 AM CDT POC GLUCOSE 06/06/2019 10:23 PM CDT HC BASIC METABOLIC PANEL Routine 06/06/2019 6:25 PM CDT POC GLUCOSE 06/06/2019 3:07 PM CDT CHEST 2 VIEWS Routine 06/06/2019 10:59 AM CDT HC ABO GROUP Routine 06/06/2019 4:40 AM CDT HC PHOSPHOROUS, SERUM Routine 06/06/2019 (PO4CT) 2:14 AM CDT HC MAGNESIUM (MGCT) Routine 06/06/2019 2:14 AM CDT HC COMPREHENSIVE Routine 06/06/2019 METABOLIC PANEL (CH12CT) 2:14 AM CDT HC CBC W AUTOMATED DIFF Routine 06/06/2019 (HPDCT) 2:14 AM CDT HC URIC ACID Routine 06/06/2019 2:14 AM CDT HC LD(LDH;LACTIC Routine 06/06/2019 DEHYDROGENASE) 2:14 AM CDT HC PHOSPHOROUS, SERUM Routine 06/05/2019 (PO4CT) 5:30 PM CDT HC MAGNESIUM (MGCT) Routine 06/05/2019 5:30 PM CDT HC COMPREHENSIVE Routine 06/05/2019 METABOLIC PANEL (CH12CT) 5:30 PM CDT HC CBC W AUTOMATED DIFF Routine 06/05/2019 (HPDCT) 5:30 PM CDT HC URIC ACID Routine 06/05/2019 5:30 PM CDT HC LD(LDH;LACTIC Routine 06/05/2019 DEHYDROGENASE) 5:30 PM CDT HC VRE SCREEN Routine 06/05/2019 5:18 PM CDT ECG 12-LEAD Routine 06/05/2019 3:54 PM CDT TELEMETRY STRIPS-SCAN 06/05/2019 12:00 AM CDT ECG-SCAN 06/05/2019 12:00 AM CDT ECG-SCAN 06/05/2019 12:00 AM CDT PROCEDURE RECORD-SCAN 06/05/2019 12:00 AM CDT documented in this encounter Results * POC GLUCOSE (06/11/2019 8:26 AM CDT) Glucose, POC 114 (H) 70 - 100 MG/DL [facility] Specimen Performing Organization Address City/State/Zipcode Ph one Number MAIN LAB [address] [place] [address] * METHOTREXATE (06/11/2019 5:59 AM CDT) Methotrexate 0.06 MCMOL/L [facility] Specimen Blood Performing Organization Address [facility] one Number [facility] MAIN [facility] [address] [place] [address] * LDH-LACTATE DEHYDROGENASE (06/11/2019 5:59 AM CDT) Lactate 220 (H) 100 - 210 U/L [facility]IN [facility] Dehydrogenase Specimen Blood Performing Organization Address [facility] one Number [facility] MAIN [facility] [address] [place] [address] * URIC ACID (06/11/2019 5:59 AM CDT) Uric Acid 4.2 4.0 - 8.0 MG/DL [facility] Specimen Blood Performing Organization Address [facility] one Number [facility] MAIN [facility] [address] [place] [address] * PHOSPHORUS CELLULAR THERAPEUTICS (06/11/2019 5:59 AM CDT) Phosphorus 3.9Comment: NOTE NEW REFERENCE 2.0 - 4.5 MG/DL [facility] MAIN [facility] RANGES Specimen Blood Performing Organization Address [facility] one Number MAIN LAB [address] [place] [phone] * MAGNESIUM CELLULAR THERAPEUTICS (06/11/2019 5:59 AM CDT) Magnesium 1.8 1.6 - 2.6 mg/dL [facility]IN [facility] Specimen Blood Performing Organization Address [facility] one Number [facility] MAIN [facility] [address] [place] [phone] * COMPREHENSIVE METABOLIC PANEL CELLULAR THERAPEUTICS (06/11/2019 5:59 AM CDT) Sodium 139 137 - 147 MMOL/L [facility]IN [facility] Potassium 3.8 3.5 - 5.1 MMOL/L [facility] Chloride 101 98 - 110 MMOL/L [facility] Glucose 114 (H) 70 - 100 MG/DL [facility] Blood Urea 11 7 - 25 MG/DL [facility] Nitrogen Creatinine 0.45 0.4 - 1.24 MG/DL [facility] Calcium 8.1 (L) 8.5 - 10.6 MG/DL [facility] Total Protein 5.0 (L) 6.0 - 8.0 G/DL [facility] Total Bilirubin 0.4 0.3 - 1.2 MG/DL [facility] Albumin 2.9 (L) 3.5 - 5.0 G/DL [facility] Alk Phosphatase 135 (H) 25 - 110 U/L [facility] AST (SGOT) 16 7 - 40 U/L [facility] CO2 33 (H) 21 - 30 MMOL/L [facility] ALT (SGPT) 9 7 - 56 U/L [facility] Anion Gap 5 3 - 12 [facility] MAIN [facility] eGFR Non >60 >60 mL/min [facility] Comment: [place] The eGFR is not validated f or use in drug dosing adjustments. Continue to use estimated creatinine clearance per dosing reference text. Please contact the Clinical Pharmacist for questions. eGFR >60 >60 mL/min [facility]IN [facility] [place] Comment: The eGFR is not validated for use in drug dosing adjustments. Continue to use estimated creatinine clearance per dosing reference text. Please contact the Clinical Pharmacist for questions. Specimen Blood Performing Organization Address City/State/Zipcode Ph one Number [facility] MAIN LAB [address] [place] [address] * CBC AND DIFF CELLULAR THERAPEUTICS (06/11/2019 4:58 AM CDT) White Blood 2.1 (L) 4.5 - 11.0 K/UL [facility] MAIN [facility] Cells RBC 2.92 (L) 4.4 - 5.5 M/UL [facility] Hemoglobin 8.4 (L) 13.5 - 16.5 GM/DL [facility] Hematocrit 25.8 (L) 40 - 50 % [facility] MCV 88.5 80 - 100 FL [facility]IN [facility] MCH 28.8 26 - 34 PG [facility] MCHC 32.6 32.0 - 36.0 G/DL [facility] RDW 20.7 (H) 11 - 15 % [facility] Platelet Count 261 150 - 400 K/UL [facility] MPV 6.3 (L) 7 - 11 FL [facility] Neutrophils 61 41 - 77 % [facility] Lymphocytes 30 24 - 44 % [facility] Monocytes 2 (L) 4 - 12 % [facility] Eosinophils 5 0 - 5 % [facility] Basophils 2 0 - 2 % [facility] Absolute 1.30 (L) 1.8 - 7.0 K/UL [facility]IN [facility] Neutrophil Count Absolute Lymph 0.60 (L) 1.0 - 4.8 K/UL [facility] Count Absolute 0.00 0 - 0.80 K/UL [facility] MAIN [facility] Monocyte Count Absolute 0.10 0 - 0.45 K/UL [facility] MAIN [facility] Eosinophil Count Absolute 0.00 0 - 0.20 K/UL MAIN LAB Basophil Count Specimen Blood Performing Organization Address City[facility]State[facility] LAB [address] [place] [address] * POC GLUCOSE (06/10/2019 10:12 PM CDT) Glucose, POC 231 (H) 70 - 100 MG/DL [facility] MAIN [facility] Specimen Performing Organization Address [facility] one Number MAIN LAB [address] [place] [address] * POC GLUCOSE (06/10/2019 5:08 PM CDT) Glucose, POC 196 (H) 70 - 100 MG/DL MAIN LAB Specimen Performing Organization Address [facility] one Number MAIN LAB [address] [place] [address] * PV GROIN DUPLEX SCAN RT ONLY (06/10/2019 3:10 PM CDT) RIGHT GROIN MEETING PLANNER 1.75 m/s OTHER OUTSIDE SYS LAB RIGHT GROIN SFA 1.07 m/s OTHER OUTSIDE SYS LAB RIGHT GROIN PFA 1.20 m/s OTHER OUTSIDE SYS LAB Cardiology Isabella [facility]pi[facility] OTHER OUTSIDE Ultrasound LAB Machine Specimen Narrative Performed At OTHER OUTSIDE LAB 1. No evidence of pseudoaneurysm or AV fistula. 2. A 2.8 x 1.0 cm hematoma seen in righ t groin at the site of recent pseudoaneurysm thrombin injection. No f low noted by color or spectral Doppler 3. No significant stenosis in visualize d arteries. 4. No evidence of thrombus in visualize d veins Performing Organization Address City/[facility] Ph [facility] Number OTHER OUTSIDE LAB * POC GLUCOSE (06/10/2019 10:37 AM CDT) Glucose, POC 119 (H) 70 - 100 MG/DL [facility] MAIN [facility] Specimen Performing Organization Address City/[facility]/Zipcode Ph one Number MAIN LAB [address] [place] [address] * POC GLUCOSE (06/10/2019 8:59 AM CDT) Glucose, POC 101 (H) 70 - 100 MG/DL [facility] MAIN [facility] Specimen Performing Organization Address City/[facility] Ph [facility] Number MA[facility] LAB [address] [place] [address] * PV SONO GUID CENT (06/10/2019 8:57 AM CDT) Referring Terry Mustafa OTHER OUTSIDE Provider LAB Cardiology [facility] OTHER OUTSIDE Ultrasound LAB Machine Specimen Narrative Performed At OTHER OUTSIDE LAB Limited right groin duplex post procedu re: 1. Thrombosed pseudoaneurysm post proce dure without any flow post procedure 2. Successful closure of pseudoaneurysm (measuring 2.6 x 1.4 cm on this study) No prior study available for comparison I have personally reviewed the study an d agree with cardiology technologist interpretation. Performing Organization Address City/[facility] one Number OTHER OUTSIDE LAB * CARDIAC CATH REPORT (06/10/2019 8:46 AM CDT) Procedure Note Terry Mustafa MD - 06/10/2019 8:46 AM CDT [facility] CARDIAC CATHETERIZATION REPORT Page 1 REFUGIO Montgomery : 1960 #: [id number] MR #/Billing ID #: [id number] / [id number] DATE: 06/10/2019 TAX AGENT: Terry Mustafa MD DICTATING PROVIDER: Terry Mustafa MD REFERRING PHYSICIAN: PROCEDURES PERFORMED: Ultrasound guided pseudoaneurysm thrombin injection. PROCEDURE: Mr. Lopez is a 59-year-old male with a recent procedure, who was found to have a large pseudoaneurysm of the right common femoral artery. It was elected to go ahead and proceed with thrombin injection for closure as opposed to surgical ligation. The risks and benefits were discussed and we went ahead and proceeded. Mr. Lopez was brought to the cardiac catheterization lab in a fasting, nonsedated state. Fentanyl was administered for discomfort. We visualized the pseudoaneurysm in the right common femoral artery with ultrasound and then proceeded to advanced a 25-gauge 2.5 inch needle into the pseudoaneurysm sac, ultimately injecting a total of 1.5 mL of thrombin into a large multi-lobed pseudoaneurysm. Upon completion of the injection, there appeared to be complete resolution of active flow. There were no complications associated with the procedure. ASSESSMENT/PLAN: Large right common femoral artery pseudoaneurysm, status post closure with thrombin injection. PLAN: Will repeat ultrasound imaging this afternoon and proceed with bedrest for 4 hours. MD JOÃO Cheney/Natasha /[id number] cc: Performing Organization Address [facility] one Number OTHER OUTSIDE LAB * METHOTREXATE (06/10/2019 3:20 AM CDT) Methotrexate 0.14 MCMOL/L [facility] MAIN [facility] Specimen Blood Performing Organization Address [facility] one Number MAIN LAB [address] [place] [address] * LDH-LACTATE DEHYDROGENASE (06/10/2019 3:20 AM CDT) Lactate 272 (H) 100 - 210 U/L [facility] MAIN LAB Dehydrogenase Specimen Blood Performing Organization Address [facility] one Number MAIN LAB [address] [place] [address] * URIC ACID (06/10/2019 3:20 AM CDT) Uric Acid 4.4 4.0 - 8.0 MG/DL [facility] MAIN LAB Specimen Blood Performing Organization Address [facility] one Number MAIN LAB [address] [place] [address] * PHOSPHORUS CELLULAR THERAPEUTICS (06/10/2019 3:20 AM CDT) Phosphorus 3.8Comment: NOTE NEW REFERENCE 2.0 - 4.5 MG/DL [facility] MAIN [facility] RANGES Specimen Blood Performing Organization [facility] one Number MAIN LAB [address] [place] [address] * MAGNESIUM CELLULAR THERAPEUTICS (06/10/2019 3:20 AM CDT) Magnesium 1.9 1.6 - 2.6 mg/dL [facility] MAIN [facility] Specimen Blood Performing Organization [facility]/Zipcode Ph one Number [facility] MAIN LAB [address] [place] [address] * COMPREHENSIVE METABOLIC PANEL CELLULAR THERAPEUTICS (06/10/2019 3:20 AM CDT) Sodium 139 137 - 147 MMOL/L [facility] MAIN [facility] Potassium 4.0 3.5 - 5.1 MMOL/L [facility] MAIN [facility] Chloride 101 98 - 110 MMOL/L [facility] MAIN [facility] Glucose 121 (H) 70 - 100 MG/DL [facility] MAIN [facility] Blood Urea 16 7 - 25 MG/DL [facility] MAIN [facility] Nitrogen Creatinine 0.56 0.4 - 1.24 MG/DL [facility] MAIN [facility] Calcium 7.7 (L) 8.5 - 10.6 MG/DL [facility] MAIN [facility] Total Protein 5.3 (L) 6.0 - 8.0 G/DL [facility] MAIN [facility] Total Bilirubin 0.3 0.3 - 1.2 MG/DL [facility] MAIN [facility] Albumin 3.2 (L) 3.5 - 5.0 G/DL [facility] MAIN [facility] Alk Phosphatase 166 (H) 25 - 110 U/L [facility] MAIN [facility] AST (SGOT) 14 7 - 40 U/L [facility] MAIN [facility] CO2 33 (H) 21 - 30 MMOL/L [facility] MAIN [facility] ALT (SGPT) 6 (L) 7 - 56 U/L [facility] MAIN [facility] Anion Gap 5 3 - 12 [facility] MAIN [facility] eGFR Non >60 >60 mL/min [facility] MAIN [facility] Comment: [place] The eGFR is not validated f or use in drug dosing adjustments. Continue to use estimated creatinine clearance per dosing reference text. Please contact the Clinical Pharmacist for questions. eGFR >60 >60 mL/min [facility] MAIN LAB [place] Comment: The eGFR is not validated for use in drug dosing adjustments. Continue to use estimated creatinine clearance per dosing reference text. Please contact the Clinical Pharmacist for questions. Specimen Blood Performing Organization Address City/State/Zipcode Ph one Number [facility] MAIN LAB [address] [place] [address] * CBC AND DIFF CELLULAR THERAPEUTICS (06/10/2019 3:20 AM CDT) White Blood 2.7 (L) 4.5 - 11.0 K/UL [facility] MAIN [facility] Cells RBC 3.12 (L) 4.4 - 5.5 M/UL [facility] MAIN [facility] Hemoglobin 8.9 (L) 13.5 - 16.5 GM/DL [facility] MAIN [facility] Hematocrit 28.0 (L) 40 - 50 % [facility] MAIN [facility] MCV 89.7 80 - 100 FL [facility] MAIN [facility] MCH 28.4 26 - 34 PG [facility] MA[facility] MCHC 31.7 (L) 32.0 - 36.0 G/DL [facility] MAIN [facility] RDW 21.1 (H) 11 - 15 % [facility] Platelet Count 325 150 - 400 K/UL [facility] MPV 6.3 (L) 7 - 11 FL [facility] Neutrophils 68 41 - 77 % [facility] Lymphocytes 27 24 - 44 % [facility] Monocytes 2 (L) 4 - 12 % [facility] Eosinophils 2 0 - 5 % [facility] Basophils 1 0 - 2 % [facility] MA[facility] Absolute 1.80 1.8 - 7.0 K/UL [facility] MAIN [facility] Neutrophil Count Absolute Lymph 0.70 (L) 1.0 - 4.8 K/UL [facility] MA[facility] Count Absolute 0.00 0 - 0.80 K/UL [facility] MAIN [facility] Monocyte Count Absolute 0.10 0 - 0.45 K/UL [facility] MAIN [facility] Eosinophil Count Absolute 0.00 0 - 0.20 K/UL [facility] MAIN [facility] Basophil Count Specimen Blood Performing Organization Address [facility] Ph one Number MAIN LAB [address] [place] [address] * POC GLUCOSE (06/09/2019 10:18 PM CDT) Glucose, POC 167 (H) 70 - 100 MG/DL MAIN LAB Specimen Performing Organization Address [facility] Ph one Number MAIN LAB [address] [place] [address] * CULTURE-URINE W/SENSITIVITY (06/09/2019 8:03 PM CDT) Battery Name URINE CULTURE MAIN LAB Specimen URINE MAIN LAB Description Special NONE MAIN LAB Requests Culture >100,000 organisms/ml MAIN LAB KLEBSIELLA PNEUMONIAE COMPLEX (A) Report Status FINAL MAIN LAB 06/11/2019 Organism ID >100,000 organisms/ml MAIN LAB KLEBSIELLA PNEUMONIAE COMPLEX Specimen Urine Antibiotic Method Susceptibility Organism Ampicillin EMMANUEL (MCG/ML) INTERPRETATION 16 RESISTANT: Resistant >100,000 organisms/ml klebsiella pneumoniae complex Amoxicil/Clav Acid EMMANUEL (MCG/ML) INTERPRETATION <=4/2 SUSCEPTIBLE: Susceptible >100,000 organisms/ml klebsiella pneumoniae complex Levofloxacin EMMANUEL (MCG/ML) INTERPRETATION <=1 SUSCEPTIBLE: Susceptible >100,000 organisms/ml klebsiella pneumoniae complex Nitrofurantoin EMMANUEL (MCG/ML) INTERPRETATION 64 INTERMEDIATE: Intermediate >100,000 organisms/ml klebsiella pneumoniae complex Gentamicin EMMANUEL (MCG/ML) INTERPRETATION <=2 SUSCEPTIBLE: Susceptible >100,000 organisms/ml klebsiella pneumoniae complex Trimethsulfa EMMANUEL (MCG/ML) INTERPRETATION <=0.5/9.5 SUSCEPTIBLE: Susceptible >100,000 organisms/ml klebsiella pneumoniae complex Piperacil/Tazobactam EMMANUEL (MCG/ML) INTERPRETATION <=2/4 SUSCEPTIBLE: Susceptible >100,000 organisms/ml klebsiella pneumoniae complex Tetracycline EMMANUEL (MCG/ML) INTERPRETATION <=2 SUSCEPTIBLE: Susceptible >100,000 organisms/ml klebsiella pneumoniae complex Cefepime EMMANUEL (MCG/ML) INTERPRETATION <=1 SUSCEPTIBLE: Susceptible >100,000 organisms/ml klebsiella pneumoniae complex Ertapenem EMMANUEL (MCG/ML) INTERPRETATION <=0.25 SUSCEPTIBLE: Susceptible >100,000 organisms/ml klebsiella pneumoniae complex Ceftriaxone EMMANUEL (MCG/ML) INTERPRETATION <=1 SUSCEPTIBLE: Susceptible >100,000 organisms/ml klebsiella pneumoniae complex Method EMMANUEL (MCG/ML) INTERPRETATION EMMANUEL (MCG/ML) INTERPRETATION >100,000 organisms/ml klebsiella pneumoniae complex Performing Organization Address City/[facility] Ph one Number MAIN LAB [address] [place] [address] * UA REFLEX CULTURE LABEL (06/09/2019 8:03 PM CDT) UA Reflex Criteria for reflex to culture [facility] LAB Culture are WBC>10, Positive Nitrit e, and/or >=+1 leukocytes. If quantity is not sufficient, an addendum will follow. Specimen Urine Performing Organization Address City/[facility] Ph one Number MAIN LAB [address] [place] [address] * URINALYSIS MICROSCOPIC REFLEX TO CULTURE (06/09/2019 8:03 PM CDT) WBCs,UA PACKED 0 - 2 /HPF MAIN LAB RBCs,UA 0-2 0 - 3 /HPF [facility] MAIN [facility] Comment,UA Criteria for reflex to culture [facility] are WBC>10, Positive Nitrite, and/or >=+1 leukocytes. If quantity is not sufficient, an addendum will follow. Bacteria,UA MANY (A) NEG-NEG [facility] MAIN LAB Specimen Urine Performing Organization Address [facility] Ph one Number [facility] MAIN LAB [address] [place] [address] * URINALYSIS DIPSTICK REFLEX TO CULTURE (06/09/2019 8:03 PM CDT) Color,UA YELLOW [facility] MAIN LAB Turbidity,UA CLEAR CLEAR-CLEAR [facility] MAIN [facility] Specific 1.006 1.003 - 1.035 [facility] MAIN LAB Fossil-Urine pH,UA 8.0 5.0 - 8.0 [facility] MAIN LAB Protein,UA NEG NEG-NEG [facility] MAIN [facility] Glucose,UA NEG NEG-NEG [facility] MA[facility] Ketones,UA NEG NEG-NEG [facility] MAIN [facility] Bilirubin,UA NEG NEG-NEG [facility] MAIN [facility] Blood,UA NEG NEG-NEG [facility] MAIN [facility] Urobilinogen,UA INCREASED (A) NORM-NORMAL [facility] MAIN [facility] Nitrite,UA NEG NEG-NEG [facility]IN [facility] Leukocytes,UA 3+ (A) NEG-NEG [facility] MAIN [facility] Urine Ascorbic NEG NEG-NEG [facility] MAIN [facility] Acid, UA Specimen Urine Performing Organization Address [facility] Ph one Number [facility] MAIN LAB [address] [place] [address] * POC GLUCOSE (06/09/2019 5:30 PM CDT) Glucose, POC 197 (H) 70 - 100 MG/DL [facility] MAIN [facility] Specimen Performing Organization Address [facility] Ph one Number [facility] MAIN LAB [address] [place] [address] * US DOPPLER VENOUS W EXTRM RIGHT (06/09/2019 2:13 PM CDT) Specimen Right Impressions Performed At 1. No evidence of femoral popliteal DVT in the righ t lower extremity. [facility] RAD RESULTS 2. Patent SFA pseudoaneurysm, right g roin. Dr. Razo discussed these results with Elza Levin, the patient's nurse, at the time of interpretation at 2:23 PM o n June 09, 2019. Finalized by Heidy Razo M.D. on 2:26 PM. Dictated by Heidy Razo M.D. on 06/09/2019 2:16 PM. Narrative Performed At Ultrasound Doppler of right lower extremity [facility] RAD R ESULTS Clinical Indication: Right lower extremity edema. Right leg worse than left. Technique: Multiple real-time grayscale sonographi c images were obtained through the right lower extremity with additional color D oppler and duplex acquisitions. Findings: There are no intraluminal filling defec ts or areas of noncompressibility within the deep veins of the right lower extre mity. The popliteal, femoral, saphenous, deep and common femoral veins of the right lower extremity appear patent. Of note is a patent pseudoaneurysm exte nding from the right superficial femoral artery in the right groin. Although john e thrombus is noted, blood flow within this finding is active. Procedure Note Interface, Radiant Results - 06/09/2019 2:30 PM CDT Ultrasound Doppler of right lower extremity Clinical Indication: Right lower extremity edema. Right leg worse than left. Technique: Multiple real-time grayscale sonographic images were obtained through the right lower extremity with additional color Doppler and duplex acquisitions. Findings: There are no intraluminal filling defects or areas of noncompressibility within the deep veins of the right lower extremity. The popliteal, femoral, saphenous, deep and common femoral veins of the right lower extremity appear patent. Of note is a patent pseudoaneurysm extending from the right superficial femoral artery in the right groin. Although some thrombus is noted, blood flow within this finding is active. IMPRESSION 1. No evidence of femoral popliteal DVT in the right lower extremity. 2. Patent SFA pseudoaneurysm, right scott in. Dr. Razo discussed these results with Elza Levin, the patient's nurse, at the time of interpretation at 2:23 PM on June 09, 2019. Finalized by Heidy Razo M.D. on 06/09/2019 2:26 PM. Dictated by Heidy Razo M.D. on 06/09/2019 2:16 PM. Performing Organization Address [facility] Ph [facility] Number [facility] RES[facility] * POC GLUCOSE (06/09/2019 12:20 PM CDT) Glucose, POC 174 (H) 70 - 100 MG/DL MAIN LAB Specimen Performing Organization Address City/State/[facility] Ph one Number MAIN LAB [address] [place] [address] * POC GLUCOSE (06/09/2019 7:58 AM CDT) Glucose, POC 183 (H) 70 - 100 MG/DL [facility] MAIN LAB Specimen Performing Organization Address [facility] Ph one Number KU MAIN LAB [address] [place] [address] * METHOTREXATE (06/09/2019 4:45 AM CDT) Methotrexate 0.64 MCMOL/L [facility] MAIN LAB Specimen Blood Performing Organization Address [facility] Ph one Number MAIN LAB [address] [place] [address] * LDH-LACTATE DEHYDROGENASE (06/09/2019 4:45 AM CDT) Lactate 285 (H) 100 - 210 U/L MAIN LAB Dehydrogenase Specimen Blood Performing Organization Address [facility] one Number MAIN LAB [address] [place] [address] * URIC ACID (06/09/2019 4:45 AM CDT) Uric Acid 4.5 4.0 - 8.0 MG/DL MAIN LAB Specimen Blood Performing Organization Address [facility] one Number MAIN LAB [address] [place] [address] * PHOSPHORUS CELLULAR THERAPEUTICS (06/09/2019 4:45 AM CDT) Phosphorus 3.5Comment: NOTE NEW REFERENCE 2.0 - 4.5 MG/DL MAIN LAB RANGES Specimen Blood Performing Organization Address [facility] one Number MAIN LAB [address] [place] [address] * MAGNESIUM CELLULAR THERAPEUTICS (06/09/2019 4:45 AM CDT) Magnesium 2.1 1.6 - 2.6 mg/dL MAIN LAB Specimen Blood Performing Organization Address [facility] Ph one Number MAIN LAB [address] [place] [address] * COMPREHENSIVE METABOLIC PANEL CELLULAR THERAPEUTICS (06/09/2019 4:45 AM CDT) Sodium 135 (L) 137 - 147 MMOL/L [facility] MAIN LAB Potassium 4.0 3.5 - 5.1 MMOL/L [facility] MAIN LAB Chloride 97 (L) 98 - 110 MMOL/L [facility] MAIN LAB Glucose 328 (H) 70 - 100 MG/DL [facility] MAIN LAB Blood Urea 13 7 - 25 MG/DL [facility] MAIN LAB Nitrogen Creatinine 0.47 0.4 - 1.24 MG/DL [facility] MAIN LAB Calcium 7.7 (L) 8.5 - 10.6 MG/DL [facility] MAIN LAB Total Protein 5.3 (L) 6.0 - 8.0 G/DL [facility] MAIN LAB Total Bilirubin 0.4 0.3 - 1.2 MG/DL [facility] MAIN LAB Albumin 3.2 (L) 3.5 - 5.0 G/DL [facility] MAIN LAB Alk Phosphatase 164 (H) 25 - 110 U/L [facility] MAIN LAB AST (SGOT) 11 7 - 40 U/L [facility] MAIN LAB CO2 30 21 - 30 MMOL/L [facility] MAIN LAB ALT (SGPT) 6 (L) 7 - 56 U/L [facility] MAIN LAB Anion Gap 8 3 - 12 [facility] MAIN LAB eGFR Non >60 >60 mL/min [facility] MAIN LAB Comment: [place] The eGFR is not validated f or use in drug dosing adjustments. Continue to use estimated creatinine clearance per dosing reference text. Please contact the Clinical Pharmacist for questions. eGFR >60 >60 mL/min [facility] MAIN LAB [place] Comment: The eGFR is not validated for use in drug dosing adjustments. Continue to use estimated creatinine clearance per dosing reference text. Please contact the Clinical Pharmacist for questions. Specimen Blood Performing Organization Address City/State/Zipcode Ph one Number MAIN LAB [address] [place] [address] * CBC AND DIFF CELLULAR THERAPEUTICS (06/09/2019 4:45 AM CDT) White Blood 4.3 (L) 4.5 - 11.0 K/UL [facility] MAIN LAB Cells RBC 2.85 (L) 4.4 - 5.5 M/UL [facility] MAIN LAB Hemoglobin 8.4 (L) 13.5 - 16.5 GM/DL [facility] MAIN LAB Hematocrit 25.4 (L) 40 - 50 % [facility] MAIN LAB MCV 89.2 80 - 100 FL [facility] MAIN LAB MCH 29.4 26 - 34 PG [facility] MAIN LAB MCHC 33.0 32.0 - 36.0 G/DL [facility] MAIN LAB RDW 21.0 (H) 11 - 15 % [facility] MAIN LAB Platelet Count 337 150 - 400 K/UL [facility] MAIN LAB MPV 6.6 (L) 7 - 11 FL [facility] MAIN LAB Neutrophils 82 (H) 41 - 77 % [facility] MAIN LAB Lymphocytes 10 (L) 24 - 44 % MAIN LAB Monocytes 8 4 - 12 % MAIN LAB Eosinophils 0 0 - 5 % MAIN LAB Basophils 0 0 - 2 % MAIN LAB Absolute 3.50 1.8 - 7.0 K/UL MAIN LAB Neutrophil Count Absolute Lymph 0.40 (L) 1.0 - 4.8 K/UL [facility] MAIN LAB Count Absolute 0.30 0 - 0.80 K/UL MAIN LAB Monocyte Count Absolute 0.00 0 - 0.45 K/UL MAIN LAB Eosinophil Count Absolute 0.00 0 - 0.20 K/UL MAIN LAB Basophil Count Specimen Blood Performing Organization Address City/[facility]/Zipcode Ph one Number MAIN LAB [address] [place] [address] * POC GLUCOSE (06/08/2019 9:58 PM CDT) Glucose, POC 246 (H) 70 - 100 MG/DL MAIN LAB Specimen Performing Organization Address [facility] MAIN LAB [address] [place] [address] * VRE SCREEN (06/08/2019 9:13 PM CDT) Battery Name VRE SCREEN MAIN LAB Specimen PERIRECTAL SWAB MAIN LAB Description Special NONE MAIN LAB Requests Culture NO VRE ISOLATED MAIN LAB Report Status FINAL MAIN LAB 06/10/2019 Specimen Perirectal Swab Performing Organization Address [facility] Ph one Number MAIN LAB [address] [place] [address] * POC GLUCOSE (06/08/2019 6:41 PM CDT) Glucose, POC 166 (H) 70 - 100 MG/DL MAIN LAB Specimen Performing Organization Address City/[facility] Ph [facility] Number MAIN LAB [address] [place] [address] * MAGNESIUM (06/08/2019 5:00 PM CDT) Magnesium 1.8 1.6 - 2.6 mg/dL MAIN LAB Specimen Blood Performing Organization Address City/[facility] Ph one Number MAIN LAB [address] [place] [address] * BASIC METABOLIC PANEL (06/08/2019 5:00 PM CDT) [facility] Sodium 132 (L) 137 - 147 MMOL/L MAIN LAB Potassium 3.6 3.5 - 5.1 MMOL/L MAIN LAB Chloride 91 (L) 98 - 110 MMOL/L MAIN LAB CO2 28 21 - 30 MMOL/L MAIN LAB Anion Gap 13 (H) 3 - 12 MAIN LAB Glucose 416 (H) 70 - 100 MG/DL MAIN LAB Blood Urea 10 7 - 25 MG/DL MAIN LAB Nitrogen Creatinine 0.43 0.4 - 1.24 MG/DL MAIN LAB Calcium 7.8 (L) 8.5 - 10.6 MG/DL MAIN LAB eGFR Non >60 >60 mL/min MAIN LAB Comment: [place] The eGFR is not validated f or use in drug dosing adjustments. Continue to use estimated creatinine clearance per dosing reference text. Please contact the Clinical Pharmacist for questions. eGFR >60 >60 mL/min MAIN LAB [place] Comment: The eGFR is not validated for use in drug dosing adjustments. Continue to use estimated creatinine clearance per dosing reference text. Please contact the Clinical Pharmacist for questions. Specimen Blood Performing Organization Address City/[facility]/Zipcode Ph one Number MAIN LAB [address] [place] [address] * METHOTREXATE (06/08/2019 5:00 PM CDT) [facility] Methotrexate 3.52 MCMOL/L MAIN LAB Specimen Blood Performing Organization Address City/[facility]/Zipcode Ph one Number MAIN LAB [address] [place] [address] * POC GLUCOSE (06/08/2019 11:55 AM CDT) [facility] Glucose, POC 355 (H) 70 - 100 MG/DL MAIN LAB Specimen Performing Organization Address City/[facility]/Zipcode Ph one Number [facility] LAB [address] [place] [address] * 2-D + DOPPLER ECHOCARDIOGRAM (06/08/2019 10:17 AM CDT) [facility] IVS 1.10 0.6 - 1.0 cm OTHER OUTSIDE LAB LVIDD 5.84 4.2 - 5.8 cm OTHER OUTSIDE LAB LVIDS 3.60 2.5 - 4.0 cm OTHER OUTSIDE LAB PW 1.18 0.6 - 1.0 cm OTHER OUTSIDE LAB Left Ventricle 109.33 62 - 150 mL OTHER OUTSIDE Diastolic LAB Volume Left Ventricle 50.15 34 - 74 mL OTHER OUTSIDE Diastolic LAB Volume Index Left Ventricle 74.48 21 - 61 mL OTHER OUTSIDE Systolic Volume LAB Left Ventricle 34.17 11 - 31 mL OTHER OUTSIDE Systolic Volume LAB Index LVOT peak zhao 1.02 m/s OTHER OUTSIDE LAB TDI lateral e' 0.12 m/s OTHER OUTSIDE LAB Right 2.99 1.9 - 3.5 cm OTHER OUTSIDE Ventricular Mid LAB Diameter Right Atrial 13.79 <18 cm2 OTHER OUTSIDE Area LAB Right Atrial 5.15 2.1 - 2.7 cm OTHER OUTSIDE Major Dimension LAB and a peak 6.56 mmHg OTHER OUTSIDE gradient of LAB AV peak 1.28 m/s OTHER OUTSIDE velocity LAB MV Peak A Zhao 1.37 m/s OTHER OUTSIDE LAB MV Peak E Zhao 0.83 m/s OTHER OUTSIDE PW LAB Right 3.62 2.5 - 4.1 cm OTHER OUTSIDE Ventricular LAB Basal Diameter Right Heart 0.19 m/s OTHER OUTSIDE Systolic TDI S' LAB Right Heart 3.19 >1.7 cm OTHER OUTSIDE Systolic Mmode LAB TAPSE Sinus 3.9 2.8 - 4.0 cm OTHER OUTSIDE LAB BSA 2.18 m2 OTHER OUTSIDE LAB FS 38.36 28 - 44 % OTHER OUTSIDE LAB EF 65.21 % OTHER OUTSIDE LAB LV mass 280.33 88 - 224 g OTHER OUTSIDE LAB RWT 0.40 <=0.42 OTHER OUTSIDE LAB AV index 0.80 OTHER OUTSIDE (quileute) LAB E/A ratio 0.61 OTHER OUTSIDE LAB Lateral E/E' 6.92 OTHER OUTSIDE ratio LAB Left Ventricle 128.59 49 - 115 g/m2 OTHER OUTSIDE Mass Index LAB CV ECHO PV DENNY Carrillo OTHER OUTSIDE HEEL SEAT FITTER LAB Ao root annulus 2.4 2.0 - 3.2 cm OTHER OUTSIDE LAB STJ 3.7 2.3 - 3.5 cm OTHER OUTSIDE LAB Proximal aorta 4.1 2.6 - 3.8 cm OTHER OUTSIDE LAB Ascending aorta 3.9 cm OTHER OUTSIDE LAB Aortic arch 4.1 cm OTHER OUTSIDE LAB TV rest 30 mmHg OTHER OUTSIDE pulmonary LAB artery pressure Cardiology Siemens [id number] OTHER OUTSIDE Ultrasound LAB Machine ECHO EF 30 % OTHER OUTSIDE LAB Specimen Narrative Performed At OTHER OUTSIDE LAB Left atrium is mildly dilated. Reduced left ventricular systolic fu nction with EF = 30% and normal diastolic function. There is apical and anterior akinesi s consistent with prior GA. RV appears of normal size and functi on. No significant valvular regurgitatio n or stenosis by doppler. Estimated pulmonary artery systolic pressure is 30 mmHg. In comparison to prior study dated , wall motion abnormalities are similar. EF likely similar compar ed side by side but was reportedly higher 50-55% at that time. Performing Organization Address [facility] one Number OTHER OUTSIDE LAB * POC GLUCOSE (06/08/2019 8:15 AM CDT) Glucose, POC 245 (H) 70 - 100 MG/DL [facility] MAIN LAB Specimen Performing Organization [facility] one Number MAIN LAB [address] [place] [address] * LDH-LACTATE DEHYDROGENASE (06/08/2019 5:54 AM CDT) Lactate 286 (H) 100 - 210 U/L MAIN LAB Dehydrogenase Specimen Blood Performing [facility] one Number MAIN LAB [address] [place] [address] * URIC ACID (06/08/2019 5:54 AM CDT) Uric Acid 4.1 4.0 - 8.0 MG/DL [facility] MAIN LAB Specimen Blood Performing [facility] one Number [facility] MAIN LAB [address] [place] [address] * PHOSPHORUS CELLULAR THERAPEUTICS (06/08/2019 5:54 AM CDT) Phosphorus 3.3Comment: NOTE NEW REFERENCE 2.0 - 4.5 MG/DL [facility] MAIN LAB RANGES Specimen Blood Performing Organization [facility] one Number MAIN LAB [address] [place] [address] * MAGNESIUM CELLULAR THERAPEUTICS (06/08/2019 5:54 AM CDT) Magnesium 1.9 1.6 - 2.6 mg/dL [facility] MAIN LAB Specimen Blood Performing Organization [facility] one Number MAIN LAB [address] [place] [address] * COMPREHENSIVE METABOLIC PANEL CELLULAR THERAPEUTICS (06/08/2019 5:54 AM CDT) Sodium 138 137 - 147 MMOL/L [facility] MAIN LAB Potassium 4.0 3.5 - 5.1 MMOL/L [facility] MAIN LAB Chloride 100 98 - 110 MMOL/L [facility] MAIN LAB Glucose 238 (H) 70 - 100 MG/DL [facility] MAIN LAB Blood Urea 9 7 - 25 MG/DL [facility] MAIN LAB Nitrogen Creatinine 0.40 0.4 - 1.24 MG/DL [facility] MAIN LAB Calcium 8.7 8.5 - 10.6 MG/DL [facility] MAIN LAB Total Protein 5.9 (L) 6.0 - 8.0 G/DL [facility] MAIN LAB Total Bilirubin 0.6 0.3 - 1.2 MG/DL [facility] MAIN LAB Albumin 3.2 (L) 3.5 - 5.0 G/DL [facility] MAIN LAB Alk Phosphatase 161 (H) 25 - 110 U/L [facility] MAIN LAB AST (SGOT) 12 7 - 40 U/L [facility] MAIN LAB CO2 31 (H) 21 - 30 MMOL/L [facility] MAIN LAB ALT (SGPT) 8 7 - 56 U/L [facility] MAIN LAB Anion Gap 7 3 - 12 [facility] MAIN LAB eGFR Non >60 >60 mL/min [facility] MAIN LAB Comment: [place] The eGFR is not validated f or use in drug dosing adjustments. Continue to use estimated creatinine clearance per dosing reference text. Please contact the Clinical Pharmacist for questions. eGFR >60 >60 mL/min [facility] MAIN LAB [place] Comment: The eGFR is not validated for use in drug dosing adjustments. Continue to use estimated creatinine clearance per dosing reference text. Please contact the Clinical Pharmacist for questions. Specimen Blood Performing Organization Address City/State/Zipcode Ph one Number [facility] MAIN LAB [address] [place] [address] * CBC AND DIFF CELLULAR THERAPEUTICS (06/08/2019 5:54 AM CDT) Pathologist [facility] White Blood 3.5 (L) 4.5 - 11.0 K/UL [facility] MAIN LAB Cells RBC 3.04 (L) 4.4 - 5.5 M/UL [facility] MAIN LAB Hemoglobin 8.9 (L) 13.5 - 16.5 GM/DL [facility] MAIN LAB Hematocrit 27.0 (L) 40 - 50 % [facility] MAIN LAB MCV 88.7 80 - 100 FL [facility] MAIN LAB MCH 29.2 26 - 34 PG [facility] MAIN LAB MCHC 32.9 32.0 - 36.0 G/DL [facility] MAIN LAB RDW 21.2 (H) 11 - 15 % MAIN LAB Platelet Count 384 150 - 400 K/UL MAIN LAB MPV 6.4 (L) 7 - 11 FL MAIN LAB Neutrophils 82 (H) 41 - 77 % MAIN LAB Lymphocytes 11 (L) 24 - 44 % MAIN LAB Monocytes 6 4 - 12 % MAIN LAB Eosinophils 0 0 - 5 % MAIN LAB Basophils 1 0 - 2 % MAIN LAB Absolute 2.90 1.8 - 7.0 K/UL MAIN LAB Neutrophil Count Absolute Lymph 0.40 (L) 1.0 - 4.8 K/UL MAIN LAB Count Absolute 0.20 0 - 0.80 K/UL MAIN LAB Monocyte Count Absolute 0.00 0 - 0.45 K/UL MAIN LAB Eosinophil Count Absolute 0.00 0 - 0.20 K/UL MAIN LAB Basophil Count Specimen Blood Performing Organization Address City/[facility]/Zipcode Ph one Number MAIN LAB [address] [place] [address] * POC GLUCOSE (06/08/2019 4:26 AM CDT) Glucose, POC 285 (H) 70 - 100 MG/DL MAIN LAB Specimen Performing Organization Address City/[facility] MAIN LAB [address] [place] [address] * POC GLUCOSE (06/08/2019 1:43 AM CDT) Glucose, POC 322 (H) 70 - 100 MG/DL MAIN LAB Specimen Performing Organization Address City/[facility] Number MAIN LAB [address] [place] [address] * POC GLUCOSE (06/07/2019 11:08 PM CDT) Glucose, POC 374 (H) 70 - 100 MG/DL MAIN LAB Specimen Performing Organization Address City/[facility] Ph [facility] Number MAIN LAB [address] [place] [address] * POC GLUCOSE (06/07/2019 6:05 PM CDT) Glucose, POC 205 (H) 70 - 100 MG/DL MAIN LAB Specimen Performing Organization Address City/[facility] Ph [facility] Number MAIN LAB [address] [place] [address] * MAGNESIUM (06/07/2019 12:09 PM CDT) Magnesium 1.7 1.6 - 2.6 mg/dL MAIN LAB Specimen Blood Performing Organization Address City/[facility] Ph one Number MAIN LAB [address] [place] [address] * BASIC METABOLIC PANEL (06/07/2019 12:09 PM CDT) Sodium 137 137 - 147 MMOL/L [facility] MAIN LAB Potassium 3.9 3.5 - 5.1 MMOL/L [facility] MAIN LAB Chloride 102 98 - 110 MMOL/L [facility] MAIN LAB CO2 30 21 - 30 MMOL/L [facility] MAIN LAB Anion Gap 5 3 - 12 [facility] MAIN LAB Glucose 189 (H) 70 - 100 MG/DL [facility] MAIN LAB Blood Urea 7 7 - 25 MG/DL [facility] MAIN LAB Nitrogen Creatinine 0.44 0.4 - 1.24 MG/DL [facility] MAIN LAB Calcium 8.2 (L) 8.5 - 10.6 MG/DL [facility] MAIN LAB eGFR Non >60 >60 mL/min MAIN LAB Comment: [place] The eGFR is not validated f or use in drug dosing adjustments. Continue to use estimated creatinine clearance per dosing reference text. Please contact the Clinical Pharmacist for questions. eGFR >60 >60 mL/min MAIN LAB [place] Comment: The eGFR is not validated for use in drug dosing adjustments. Continue to use estimated creatinine clearance per dosing reference text. Please contact the Clinical Pharmacist for questions. Specimen Blood Performing Organization Address [facility] Ph one Number MAIN LAB [address] [place] [address] * POC GLUCOSE (06/07/2019 11:15 AM CDT) Glucose, POC 223 (H) 70 - 100 MG/DL MAIN LAB Specimen Performing Organization Address [facility] Ph one Number MAIN LAB [address] [place] [address] * POC GLUCOSE (06/07/2019 7:58 AM CDT) Glucose, POC 117 (H) 70 - 100 MG/DL MAIN LAB Specimen Performing Organization Address City/[facility] Ph one Number MAIN LAB [address] [place] [address] * LDH-LACTATE DEHYDROGENASE (06/07/2019 2:00 AM CDT) Lactate 247 (H) 100 - 210 U/L [facility] MAIN LAB Dehydrogenase Specimen Blood Performing Organization Address [facility] one Number [facility] MAIN LAB [address] [place] [address] * URIC ACID (06/07/2019 2:00 AM CDT) Uric Acid 4.0 4.0 - 8.0 MG/DL K[facility] MAIN LAB Specimen Blood Performing Organization Address [facility] one Number [facility] MAIN LAB [address] [place] [address] * PHOSPHORUS CELLULAR THERAPEUTICS (06/07/2019 2:00 AM CDT) Phosphorus 3.5Comment: NOTE NEW REFERENCE 2.0 - 4.5 MG/DL [facility] MAIN LAB RANGES Specimen Blood Performing Organization Address [facility] one Number [facility] MAIN LAB [address] [place] [address] * MAGNESIUM CELLULAR THERAPEUTICS (06/07/2019 2:00 AM CDT) Magnesium 1.7 1.6 - 2.6 mg/dL [facility] MAIN LAB Specimen Blood Performing Organization Address [facility] one Number [facility] MAIN LAB [address] [place] [address] * COMPREHENSIVE METABOLIC PANEL CELLULAR THERAPEUTICS (06/07/2019 2:00 AM CDT) Sodium 138 137 - 147 MMOL/L [facility] MAIN LAB Potassium 4.1 3.5 - 5.1 MMOL/L [facility] MAIN LAB Chloride 103 98 - 110 MMOL/L [facility] MAIN LAB Glucose 95 70 - 100 MG/DL [facility] MAIN LAB Blood Urea 6 (L) 7 - 25 MG/DL [facility] MAIN LAB Nitrogen Creatinine 0.48 0.4 - 1.24 MG/DL [facility] MAIN LAB Calcium 8.4 (L) 8.5 - 10.6 MG/DL [facility] MAIN LAB Total Protein 5.5 (L) 6.0 - 8.0 G/DL [facility] MAIN LAB Total Bilirubin 0.7 0.3 - 1.2 MG/DL [facility] MAIN LAB Albumin 3.1 (L) 3.5 - 5.0 G/DL [facility] MAIN LAB Alk Phosphatase 150 (H) 25 - 110 U/L [facility] MAIN LAB AST (SGOT) 12 7 - 40 U/L [facility] MAIN LAB CO2 28 21 - 30 MMOL/L [facility] MAIN LAB ALT (SGPT) 6 (L) 7 - 56 U/L [facility] MAIN LAB Anion Gap 7 3 - 12 KU MAIN LAB eGFR Non >60 >60 mL/min [facility] MAIN LAB Comment: [place] The eGFR is not validated f or use in drug dosing adjustments. Continue to use estimated creatinine clearance per dosing reference text. Please contact the Clinical Pharmacist for questions. eGFR >60 >60 mL/min [facility] MAIN LAB [place] Comment: The eGFR is not validated for use in drug dosing adjustments. Continue to use estimated creatinine clearance per dosing reference text. Please contact the Clinical Pharmacist for questions. Specimen Blood Performing Organization Address City/[facility] Ph [facility] Number MAIN LAB [address] [place] [address] * CBC AND DIFF CELLULAR THERAPEUTICS (06/07/2019 2:00 AM CDT) White Blood 4.5 4.5 - 11.0 K/UL MAIN LAB Cells RBC 2.82 (L) 4.4 - 5.5 M/UL [facility] MAIN LAB Hemoglobin 8.8 (L) 13.5 - 16.5 GM/DL [facility] MAIN LAB Hematocrit 25.9 (L) 40 - 50 % [facility] MAIN LAB MCV 91.5 80 - 100 FL MAIN LAB MCH 31.1 26 - 34 PG [facility] MAIN LAB MCHC 34.0 32.0 - 36.0 G/DL [facility] MAIN LAB RDW 22.4 (H) 11 - 15 % [facility] MAIN LAB Platelet Count 320 150 - 400 K/UL MAIN LAB MPV 6.9 (L) 7 - 11 FL MAIN LAB Nucleated RBCs 2 K/UL [facility] MAIN LAB Segmented 35 (L) 41 - 77 % [facility] MAIN LAB Neutrophils Bands 26 (H) 0 - 10 % [facility] MAIN LAB Lymphocytes 16 (L) 24 - 44 % [facility] MAIN LAB Monocytes 17 (H) 4 - 12 % [facility] MAIN LAB Eosinophil 6 (H) 0 - 5 % [facility] MAIN LAB ANISO PRESENT MAIN LAB POIK PRESENT MAIN LAB Platelet NORMAL MAIN LAB Estimate Absolute 2.75 1.8 - 7.0 K/UL [facility] MAIN LAB Neutrophil Count Manual Specimen Blood Performing Organization Address City/State/Zipcode Ph one Number MAIN LAB [address] [place] [address] * POC GLUCOSE (06/06/2019 10:23 PM CDT) Glucose, POC 114 (H) 70 - 100 MG/DL MAIN LAB Specimen Performing Organization Address [facility] Ph one Number MAIN LAB [address] [place] [address] * BASIC METABOLIC PANEL (06/06/2019 6:25 PM CDT) Sodium 137 137 - 147 MMOL/L [facility] MAIN LAB Potassium 3.8 3.5 - 5.1 MMOL/L [facility] MAIN LAB Chloride 103 98 - 110 MMOL/L MAIN LAB CO2 27 21 - 30 MMOL/L [facility] MAIN LAB Anion Gap 7 3 - 12 [facility] MAIN LAB Glucose 136 (H) 70 - 100 MG/DL MAIN LAB Blood Urea 7 7 - 25 MG/DL MAIN LAB Nitrogen Creatinine 0.50 0.4 - 1.24 MG/DL MAIN LAB Calcium 8.5 8.5 - 10.6 MG/DL MAIN LAB eGFR Non >60 >60 mL/min MAIN LAB Comment: [place] The eGFR is not validated f or use in drug dosing adjustments. Continue to use estimated creatinine clearance per dosing reference text. Please contact the Clinical Pharmacist for questions. eGFR >60 >60 mL/min MAIN LAB [place] Comment: The eGFR is not validated for use in drug dosing adjustments. Continue to use estimated creatinine clearance per dosing reference text. Please contact the Clinical Pharmacist for questions. Specimen Blood Performing Organization Address [facility] Ph one Number MAIN LAB [address] [place] [address] * POC GLUCOSE (06/06/2019 3:07 PM CDT) Glucose, POC 140 (H) 70 - 100 MG/DL MAIN LAB Specimen Performing Organization Address [facility] Ph one Number MAIN LAB [address] [place] [address] * CHEST 2 VIEWS (06/06/2019 10:59 AM CDT) Specimen Impressions Performed At 1. Left PICC as described. [facility] RAD RESULTS 2. Mild bibasilar atelectasis or scar ring. Approved by Apolinar England M.D. on 06/06 11:28 AM By my electronic signature, I attest th at I have personally reviewed the images for this examination and formulated the interpretations and opinions expressed in this report Finalized by Rashi Butcher M.D. on 019 11:32 AM. Dictated by Apolinar England M.D. on 06/06/2019 11:00 AM. Narrative Performed At CHEST 2 VIEWS [facility] RAD RESULTS Clinical Indication: Male, 59 years old . Shortness of breath, edema. Comparison: Chest radiograph 05/21/2019 Findings: Slight interval retraction of left PICC with tip overlying the upper SVC. The cardiomediastinal silhouette is wit hin normal limits. Atherosclerotic calcification of the thoracic aorta. Th ere is no pulmonary vascular congestion. Scattered areas of scarring and mild bi basilar atelectasis. No pleural effusion. No pneumothorax. Old healed left clavic le fracture is again noted. Posterior lumbar spinal fusion hardware with vert ebroplasty of the L1 vertebral body. Procedure Note Interface, Radiant Results - 06/06/2019 11:35 AM CDT CHEST 2 VIEWS Clinical Indication: Male, 59 years old. Shortness of breath, edema. Comparison: Chest radiograph 05/21/2019 Findings: Slight interval retraction of left PICC with tip overlying the upper SVC. The cardiomediastinal silhouette is within normal limits. Atherosclerotic calcification of the thoracic aorta. There is no pulmonary vascular congestion. Scattered areas of scarring and mild bibasilar atelectasis. No pleural effusion. No pneumothorax. Old healed left clavicle fracture is again noted. Posterior lumbar spinal fusion hardware with vertebroplasty of the L1 vertebral body. IMPRESSION 1. Left PICC as described. 2. Mild bibasilar atelectasis or scarri ng. Approved by Apolinar England M.D. on 06/06/2019 11:28 AM By my electronic signature, I attest that I have personally reviewed the images for this examination and formulated the interpretations and opinions expressed in this report Finalized by Rashi Butcher M.D. on 06/06/2019 11:32 AM. Dictated by Apolinar England M.D. on 06/06/2019 11:00 AM. Performing Organization Address City/State/Zipcode Ph one Number [facility] RAD RESULTS * TYPE & CROSSMATCH (06/06/2019 4:40 AM CDT) Units Ordered 1 [facility] MAIN LAB Crossmatch 06/09/2019 [facility] MAIN LAB Expires Record Check FOUND [facility] MAIN LAB ABO/RH(D) A POS MAIN LAB Antibody Screen NEG MAIN LAB Electronic YES MAIN LAB Crossmatch Unit Number [id number] [facility] MAIN LAB Blood Component RBC,ADSOL,LEUKO [facility] MAIN LAB Type REDUCED,IRRADIATED Unit Division 0 [facility] MAIN LAB Status OF Unit TRANSFUSED [facility] MAIN LAB Transfusion OK TO TRANSFUSE MAIN LAB Status Crossmatch COMPATIBLE,ELECTRONIC MAIN LAB Result Specimen Blood Performing Organization Address [facility] Ph one Number MAIN LAB [address] [place] [address] * LDH-LACTATE DEHYDROGENASE (06/06/2019 2:14 AM CDT) Lactate 250 (H) 100 - 210 U/L MAIN LAB Dehydrogenase Specimen Blood Performing Organization Address [facility] Ph [facility] Number MAIN LAB [address] [place] [address] * URIC ACID (06/06/2019 2:14 AM CDT) Uric Acid 3.6 (L) 4.0 - 8.0 MG/DL MAIN LAB Specimen Blood Performing Organization Address [facility] Ph one Number MAIN LAB [address] [place] [address] * PHOSPHORUS CELLULAR THERAPEUTICS (06/06/2019 2:14 AM CDT) Phosphorus 3.2Comment: NOTE NEW REFERENCE 2.0 - 4.5 MG/DL MAIN LAB RANGES Specimen Blood Performing Organization Address [facility] Ph one Number MAIN LAB [address] [place] [phone] * MAGNESIUM CELLULAR THERAPEUTICS (06/06/2019 2:14 AM CDT) Magnesium 1.6 1.6 - 2.6 mg/dL MAIN LAB Specimen Blood Performing Organization Address [facility] Ph one Number MAIN LAB [address] [place] [phone] * COMPREHENSIVE METABOLIC PANEL CELLULAR THERAPEUTICS (06/06/2019 2:14 AM CDT) Sodium 137 137 - 147 MMOL/L MAIN LAB Potassium 3.6 3.5 - 5.1 MMOL/L KU MAIN LAB Chloride 103 98 - 110 MMOL/L [facility] MAIN LAB Glucose 134 (H) 70 - 100 MG/DL [facility] MAIN LAB Blood Urea 8 7 - 25 MG/DL [facility] MAIN LAB Nitrogen Creatinine 0.40 0.4 - 1.24 MG/DL [facility] MAIN LAB Calcium 8.3 (L) 8.5 - 10.6 MG/DL [facility] MAIN LAB Total Protein 5.4 (L) 6.0 - 8.0 G/DL [facility] MAIN LAB Total Bilirubin 0.4 0.3 - 1.2 MG/DL [facility] MAIN LAB Albumin 3.1 (L) 3.5 - 5.0 G/DL [facility] MAIN LAB Alk Phosphatase 140 (H) 25 - 110 U/L [facility] MAIN LAB AST (SGOT) 11 7 - 40 U/L [facility] MAIN LAB CO2 29 21 - 30 MMOL/L [facility] MAIN LAB ALT (SGPT) 7 7 - 56 U/L [facility] MAIN LAB Anion Gap 5 3 - 12 [facility] MAIN LAB eGFR Non >60 >60 mL/min [facility] MAIN LAB Comment: [place] The eGFR is not validated f or use in drug dosing adjustments. Continue to use estimated creatinine clearance per dosing reference text. Please contact the Clinical Pharmacist for questions. eGFR >60 >60 mL/min [facility] MAIN LAB [place] Comment: The eGFR is not validated for use in drug dosing adjustments. Continue to use estimated creatinine clearance per dosing reference text. Please contact the Clinical Pharmacist for questions. Specimen Blood Performing Organization Address City/State/Zipcode Ph one Number KU MAIN LAB [address] [place] [address] * CBC AND DIFF CELLULAR THERAPEUTICS (06/06/2019 2:14 AM CDT) White Blood 2.1 (L) 4.5 - 11.0 K/UL [facility] MAIN LAB Cells RBC 2.28 (L) 4.4 - 5.5 M/UL [facility] MAIN LAB Hemoglobin 6.9 (L) 13.5 - 16.5 GM/DL [facility] MAIN LAB Hematocrit 21.1 (L) 40 - 50 % [facility] MAIN LAB MCV 92.6 80 - 100 FL [facility] MAIN LAB MCH 30.3 26 - 34 PG [facility] MAIN LAB MCHC 32.8 32.0 - 36.0 G/DL [facility] MAIN LAB RDW 23.8 (H) 11 - 15 % [facility] MAIN LAB Platelet Count 281 150 - 400 K/UL [facility] MAIN LAB MPV 7.1 7 - 11 FL [facility] MAIN LAB Neutrophils 37 (L) 41 - 77 % [facility] MAIN LAB Lymphocytes 29 24 - 44 % [facility] MAIN LAB Monocytes 22 (H) 4 - 12 % [facility] MAIN LAB Eosinophils 11 (H) 0 - 5 % [facility] MAIN LAB Basophils 1 0 - 2 % [facility] MAIN LAB Absolute 0.80 (L) 1.8 - 7.0 K/UL [facility] MAIN LAB Neutrophil Count Absolute Lymph 0.60 (L) 1.0 - 4.8 K/UL [facility] MAIN LAB Count Absolute 0.40 0 - 0.80 K/UL [facility] MAIN LAB Monocyte Count Absolute 0.20 0 - 0.45 K/UL MAIN LAB Eosinophil Count Absolute 0.00 0 - 0.20 K/UL MAIN LAB Basophil Count Specimen Blood Performing Organization Address [facility] one Number MAIN LAB [address] [place] [address] * LDH-LACTATE DEHYDROGENASE (06/05/2019 5:30 PM CDT) Lactate 274 (H) 100 - 210 U/L MAIN LAB Dehydrogenase Specimen Blood Performing Organization Address [facility] Ph one Number MAIN LAB [address] [place] [address] * URIC ACID (06/05/2019 5:30 PM CDT) Uric Acid 3.5 (L) 4.0 - 8.0 MG/DL MAIN LAB Specimen Blood Performing Organization Address [facility] Ph one Number MAIN LAB [address] [place] [address] * PHOSPHORUS CELLULAR THERAPEUTICS (06/05/2019 5:30 PM CDT) Phosphorus 2.8Comment: NOTE NEW REFERENCE 2.0 - 4.5 MG/DL MAIN LAB RANGES Specimen Blood Performing Organization Address [facility] one Number MAIN LAB [address] [place] [address] * MAGNESIUM CELLULAR THERAPEUTICS (06/05/2019 5:30 PM CDT) Magnesium 1.6 1.6 - 2.6 mg/dL [facility] MAIN LAB Specimen Blood Performing Organization Address [facility] one Number MAIN LAB [address] [place] [address] * COMPREHENSIVE METABOLIC PANEL CELLULAR THERAPEUTICS (06/05/2019 5:30 PM CDT) Sodium 138 137 - 147 MMOL/L [facility] MAIN LAB Potassium 3.9 3.5 - 5.1 MMOL/L [facility] MAIN LAB Chloride 105 98 - 110 MMOL/L [facility] MAIN LAB Glucose 115 (H) 70 - 100 MG/DL [facility] MAIN LAB Blood Urea 11 7 - 25 MG/DL [facility] MAIN LAB Nitrogen Creatinine 0.44 0.4 - 1.24 MG/DL [facility] MAIN LAB Calcium 8.6 8.5 - 10.6 MG/DL [facility] MAIN LAB Total Protein 5.7 (L) 6.0 - 8.0 G/DL [facility] MAIN LAB Total Bilirubin 0.5 0.3 - 1.2 MG/DL [facility] MAIN LAB Albumin 3.2 (L) 3.5 - 5.0 G/DL [facility] MAIN LAB Alk Phosphatase 141 (H) 25 - 110 U/L [facility] MAIN LAB AST (SGOT) 13 7 - 40 U/L [facility] MAIN LAB CO2 24 21 - 30 MMOL/L [facility] MAIN LAB ALT (SGPT) 8 7 - 56 U/L [facility] MAIN LAB Anion Gap 9 3 - 12 [facility] MAIN LAB eGFR Non >60 >60 mL/min [facility] MAIN LAB Comment: [place] The eGFR is not validated f or use in drug dosing adjustments. Continue to use estimated creatinine clearance per dosing reference text. Please contact the Clinical Pharmacist for questions. eGFR >60 >60 mL/min [facility] MAIN LAB [place] Comment: The eGFR is not validated for use in drug dosing adjustments. Continue to use estimated creatinine clearance per dosing reference text. Please contact the Clinical Pharmacist for questions. Specimen Blood Performing Organization Address City/State/Zipcode Ph one Number KU MAIN LAB [address] [place] [address] * CBC AND DIFF CELLULAR THERAPEUTICS (06/05/2019 5:30 PM CDT) White Blood 2.1 (L) 4.5 - 11.0 K/UL [facility] MAIN LAB Cells RBC 2.28 (L) 4.4 - 5.5 M/UL [facility] MAIN LAB Hemoglobin 7.1 (L) 13.5 - 16.5 GM/DL [facility] MAIN LAB Hematocrit 21.3 (L) 40 - 50 % [facility] MAIN LAB MCV 93.4 80 - 100 FL [facility] MAIN LAB MCH 31.0 26 - 34 PG MAIN LAB MCHC 33.2 32.0 - 36.0 G/DL [facility] MAIN LAB RDW 24.3 (H) 11 - 15 % [facility] MAIN LAB Platelet Count 238 150 - 400 K/UL [facility] MAIN LAB MPV 6.9 (L) 7 - 11 FL MAIN LAB Segmented 35 (L) 41 - 77 % [facility] MAIN LAB Neutrophils Bands 7 0 - 10 % [facility] MAIN LAB Lymphocytes 32 24 - 44 % [facility] MAIN LAB Monocytes 20 (H) 4 - 12 % [facility] MAIN LAB Eosinophil 6 (H) 0 - 5 % [facility] MAIN LAB POIK PRESENT MAIN LAB Ovalocyte PRESENT MAIN LAB Teardrop PRESENT [facility] MAIN LAB Platelet NORMAL MAIN LAB Estimate Absolute 0.89 (L) 1.8 - 7.0 K/UL [facility] MAIN LAB Neutrophil Count Manual Specimen Blood Performing Organization Address [facility] Ph one Number KU MAIN LAB [address] [place] [address] * VRE SCREEN (06/05/2019 5:18 PM CDT) Battery Name VRE SCREEN MAIN LAB Specimen PERIRECTAL SWAB MAIN LAB Description Special NONE [facility] MAIN LAB Requests Culture NO VRE ISOLATED [facility] MAIN LAB Report Status FINAL [facility] MAIN LAB 06/07/2019 Specimen Perirectal Swab Performing Organization Address [facility] Ph one Number MAIN LAB [address] [place] [address] * TELEMETRY STRIPS-SCAN (06/05/2019 12:00 AM CDT) Narrative Performed At This result has an attachment that is n ot available. Ordered by an unspecified provider. * PROCEDURE RECORD-SCAN (06/05/2019 12:00 AM CDT) Narrative Performed At This result has an attachment that is n ot available. Ordered by an unspecified provider. * ECG-SCAN (06/05/2019 12:00 AM CDT) Narrative Performed At This result has an attachment that is n ot available. Ordered by an unspecified provider. * ECG-SCAN (06/05/2019 12:00 AM CDT) Narrative Performed At This result has an attachment that is n ot available. Ordered by an unspecified provider. 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 Chronic anticoagulation Long-term (current) use of anticoagulan ts Essential hypertension Unspecified essential hypertension Lytic bone lesions on xray Disorder of bone and cartilage, unspeci fied DM (diabetes mellitus) (HCC) Type II or unspecified type diabetes me llitus without mention of complication, not stated as uncontrolled Chronic hepatitis C (HCC) Chronic hepatitis C without mention of hepatic coma Cardiomyopathy (HCC) Other primary cardiomyopathies CAD (coronary artery disease) Coronary atherosclerosis of unspecified type of vessel, [place] or graft Back pain Backache, unspecified Dyslipidemia Other and unspecified hyperlipidemia Atrial fibrillation (HCC) Atrial fibrillation Pulmonary embolus (HCC) Other pulmonary embolism and infarction Heart failure with reduced ejection fra ction (HCC) documented in this encounter Admitting Diagnoses Diagnosis DLBCL (diffuse large B cell lymphoma) ( HCC) Other malignant lymphomas, unspecified site, extranodal and solid organ sites documented in this encounter Administered Medications Action Date Dose Rate Site Medication Order MAR Action 06/10/2019 6:15 PM CDT 650 mg acetaminophen (TYLENOL) tablet 650 mg Given 650 mg, Oral, EVERY 4 HOURS PRN, Starting Sat06/10/19 at 0846, Until Jennifer 06/11/19 at 1437, Pain non-opioid: january e used alone or in combination with opioi d analgesia, TOTAL ACETAMINOPHEN DOSE NOT TO EXCEED 4GM DAILY, 06/11/2019 9:51 AM CDT 300 mg allopurinol (ZYLOPRIM) tablet 300 mg Given 300 mg, Oral, DAILY, First dose (after last modification) on 06/06/19 at 0900, Until Discontinued 300 mg Given 06/10/2019 10:02 AM CDT 300 mg Given 06/09/2019 8:25 AM CDT aluminum/magnesium hydroxide (MAALOX) oral suspension 30 mL 30 mL, Oral, EVERY 4 HOURS PRN, Starting Sat06/10/19 at 0846, Until Jennifer 06/11/19 at 1437, Indigestion/Heartburn 06/09/2019 4:54 AM CDT 0.51 mg/min 17 mL/hr amiodarone (CORDARONE) 360 mg in Given - New dextrose, iso-osm 200 mL infusion Bag 0.5-1 mg/min (16.6667-33.3333 mL/hr, rounded to 17-33 mL/hr) 200 mL, at 17-33 mL/hr, Intravenous, TITRATE DIRECTED , Starting Sat06/08/19 at 0945, Until Sat06/09/19 at 1131, SPECIAL TUBING REQUIRED Std conc= 1.8mg/mL. Initiate infusion at 1mg/min for the first 6 hours, followed by 0.5mg/min maint rate., 0.5 mg/min 17 mL/hr Given - New Bag 06/08/2019 5:57 PM CDT 0.51 mg/min 17 mL/hr Dose/Rate Change 06/08/2019 5:03 PM CDT amiodarone (CORDARONE) tablet 200 mg 200 mg, Oral, DAILY, First dose on Sat06/23/19 at 0900, Until Discontinued 06/11/2019 9:46 AM CDT 400 mg amiodarone (CORDARONE) tablet 400 mg Given 400 mg, Oral, TWICE DAILY, 14 doses, First dose on Sat06/09/19 at 2100, Last dose on Sat06/16/19 at 0900 400 mg Given 06/10/2019 8:21 PM CDT 400 mg Given 06/10/2019 10:04 AM CDT amiodarone (CORDARONE) tablet 400 mg 400 mg, Oral, DAILY, 7 doses, First dos e on Sat06/16/19 at 2100, Last dose on 06/22/19 at 0900 06/09/2019 6:46 PM CDT 5 mg apixaban (ELIQUIS) tablet 5 mg Given 5 mg, Oral, TWICE DAILY, First dose on Sat06/05/19 at 1900, Until Discontinued , May crush 5 mg or 2.5 mg tablets and suspend in 60 mL of D5W followed by immediate delivery through a nasogastri c tube. No information regarding administration of suspension by mouth i s available. NOTE: This is a HIGH ALERT Medication., 5 mg Given 06/09/2019 6:50 AM CDT 5 mg Given 06/08/2019 6:57 PM CDT 06/11/2019 9:48 AM CDT 5 mg apixaban (ELIQUIS) tablet 5 mg Given 5 mg, Oral, TWICE DAILY, First dose on Jennifer 06/11/19 at 0900, Until Discontinued , May crush 5 mg or 2.5 mg tablets and suspend in 60 mL of D5W followed by immediate delivery through a nasogastri c tube. No information regarding administration of suspension by mouth i s available. NOTE: This is a HIGH ALERT Medication., 06/09/2019 8:25 AM CDT 81 mg aspirin EC tablet 81 mg Given 81 mg, Oral, DAILY, First dose on 06/06/19 at 0900, Until Discontinued 81 mg Given 06/08/2019 8:39 AM CDT 81 mg Given 06/07/2019 9:14 AM CDT 06/11/2019 9:48 AM CDT 40 mg atorvastatin (LIPITOR) tablet 40 mg Given 40 mg, Oral, DAILY, First dose (after last modification) on 06/06/19 at 0900, Until Discontinued 40 mg Given 06/10/2019 10:02 AM CDT 40 mg Given 06/09/2019 8:25 AM CDT 06/11/2019 9:51 AM CDT 75 mg clopiDOGrel (PLAVIX) tablet 75 mg Given 75 mg, Oral, DAILY, First dose on 06/06/19 at 0900, Until Discontinued, This Medication can increase the risk o f bleeding and may need to be held prior to surgery or invasive procedures. Consult physician in advance., 75 mg Given 06/10/2019 10:03 AM CDT 75 mg Given 06/09/2019 8:25 AM CDT 06/07/2019 3:47 PM CDT 12 mg dexAMETHasone (DECADRON) tablet 12 mg Given 12 mg, Oral, ONCE, 1 dose, 06/07/19 at 1200, Give 30 minutes prior to chemotherapy., 06/06/2019 4:34 AM CDT 150 mL/hr dextrose 5% (D5W) with sodium Given - New bicarbonate 100 mEq 1,100 mL IV infusion Bag 1,100 mL, Intravenous, at 150 mL/hr, CONTINUOUS, Starting Sat06/05/19 at 1730, Until 06/06/19 at 0957 150 mL/hr Given - New Bag 06/05/2019 7:22 PM CDT 06/11/2019 12:04 AM CDT 75 mL/hr dextrose 5% (D5W) with sodium Given - New bicarbonate 150 mEq 1,150 mL IV infusion Bag 1,150 mL, Intravenous, at 75 mL/hr, CONTINUOUS, Starting Sat06/07/19 at 0600, Until Jennifer 06/11/19 at 0921 75 mL/hr Given - New Bag 06/10/2019 3:14 AM CDT 75 mL/hr Given - New Bag 06/09/2019 10:57 AM CDT 06/08/2019 5:00 PM CDT 250 mL DEXTROSE 5% IN WATER IV SOLP (Cabinet Given - New Override) Bag NOW, 1 dose, Sat06/08/19 at 1700, Created by cabinet override, Created by cabinet override, 06/09/2019 10:46 AM CDT 250 mL DEXTROSE 5% IN WATER IV SOLP (Cabinet Given - New Override) Bag NOW, 1 dose, Sat06/09/19 at 1045, Created by cabinet override, Created by cabinet override, 06/06/2019 5:22 PM CDT 250 mcg digoxin (LANOXIN) injection 250 mcg Given 250 mcg, Intravenous, ONCE, 1 dose, [facility] 06/06/19 at 1545, Hold for heart rate < 60 bpm, 06/08/2019 8:39 AM CDT 250 mcg digoxin (LANOXIN) tablet 250 mcg Given 250 mcg, Oral, DAILY, First dose on [place] 06/07/19 at 0900, Until Discontinued, Hold for heart rate < 60 bpm NOTE: PHARMACOKINETIC MONITORING, 250 mcg Given 06/07/2019 9:14 AM CDT 06/08/2019 8:39 AM CDT 240 mg diltiazem CD (cardIZEM CD) capsule 240 Given mg 240 mg, Oral, DAILY, First dose on 06/06/19 at 0900, Until Discontinued 240 mg Given 06/07/2019 9:14 AM CDT 240 mg Given 06/06/2019 8:01 AM CDT diphenhydrAMINE (BENADRYL) capsule 25 m g 25 mg, Oral, EVERY 4 HOURS PRN, Starting Sat06/10/19 at 0846, Until Jennifer 06/11/19 at 1437, Rash diphenhydrAMINE (BENADRYL) injection 25 mg 25 mg, Intravenous, EVERY 4 HOURS PRN, Starting Sat06/10/19 at 0846, Until Jennifer 06/11/19 at 1437, Rash 06/08/2019 5:14 PM CDT 1 patch Shoulder , Left fentaNYL (DURAGESIC) 25 mcg/hr patch 1 Patch/Topica patch l Applied 1 patch, Transdermal, Administer over 7 2 Hours, EVERY 72 HOURS, First dose on Fr i 06/05/19 at 1700, Until Discontinued 1 patch Back, Upper Right Patch/Topical Applied 06/05/2019 6:11 PM CDT 06/06/2019 12:28 PM CDT 480 mcg Arm, Rig ht filgrastim-sndz (ZARXIO) inj syringe 480 Given mcg 480 mcg (rounded from 458 mcg = 5 mcg/k g 91.6 kg), Subcutaneous, ONCE, 1 dose, 06/06/19 at 1130 06/06/2019 11:14 AM CDT 20 mg furosemide (LASIX) injection 20 mg Given 20 mg, 2 mL, Intravenous, ONCE, 1 dose, 06/06/19 at 1000, PROTECT FROM LIGHT , 06/06/2019 2:34 PM CDT 20 mg furosemide (LASIX) injection 20 mg Given 20 mg, 2 mL, Intravenous, ONCE, 1 dose, 06/06/19 at 1500, PROTECT FROM LIGHT , 06/06/2019 7:24 PM CDT 20 mg furosemide (LASIX) injection 20 mg Given 20 mg, 2 mL, Intravenous, ONCE, 1 dose, 06/06/19 at 1845, PROTECT FROM LIGHT , 06/07/2019 10:23 AM CDT 20 mg furosemide (LASIX) injection 20 mg Given 20 mg, 2 mL, Intravenous, ONCE, 1 dose, 06/07/19 at 0945, PROTECT FROM LIGHT , 06/07/2019 1:36 PM CDT 20 mg furosemide (LASIX) injection 20 mg Given 20 mg, 2 mL, Intravenous, ONCE, 1 dose, 06/07/19 at 1400, PROTECT FROM LIGHT , 06/07/2019 5:39 PM CDT 20 mg furosemide (LASIX) injection 20 mg Given 20 mg, 2 mL, Intravenous, ONCE, 1 dose, 06/07/19 at 1800, PROTECT FROM LIGHT , 06/08/2019 10:44 AM CDT 40 mg furosemide (LASIX) injection 40 mg Given 40 mg, 4 mL, Intravenous, ONCE, 1 dose, 06/08/19 at 0945, PROTECT FROM LIGHT , 06/08/2019 2:14 PM CDT 40 mg furosemide (LASIX) injection 40 mg Given 40 mg, 4 mL, Intravenous, ONCE, 1 dose, Sat06/08/19 at 1400, PROTECT FROM LIGHT , 06/11/2019 9:48 AM CDT 40 mg furosemide (LASIX) tablet 40 mg Given 40 mg, Oral, DAILY, First dose on Sat06/09/19 at 1230, Until Discontinued 40 mg Given 06/10/2019 10:03 AM CDT 40 mg Given 06/09/2019 12:16 PM CDT 06/11/2019 9:47 AM CDT 300 mg gabapentin (NEURONTIN) capsule 300 mg Given 300 mg, Oral, EVERY 8 HOURS, First dos e on Sat06/05/19 at 1700, Until Discontinued 300 mg Given 06/11/2019 1:49 AM CDT 300 mg Given 06/10/2019 4:26 PM CDT 06/10/2019 10:26 PM CDT 2 Units Abdomina l Tissue insulin aspart U-100 (NOVOLOG FLEXPEN) Given injection PEN 0-12 Units 0-12 Units, Subcutaneous, BEFORE MEALS AND 2200, First dose on Sat06/09/19 at 0800, Until Discontinued, -POC glucose 181-220mg/dL at , administer 2 units insulin, at 22, 03* administer 0 units. -POC glucose 221-260mg/dL at , administer 4 units insulin, at 22, 03* administer 2 units. -POC glucos e 261-300mg/dL at administer 6 units insulin, at 22, 03* administer 4 units. -POC glucose 301-350mg/dL at administer 8 units insulin, at 22, 03* administer 6 units. -POC glucos e 351-400mg/dL at , administer 1 0 units insulin, at 22, 03* administer 8 units. -POC glucose >400mg/dL at , administer 12 units insulin, at 22, 03* administer 10 units. *only if ordered 5x's daily For [...] request. DO NOT uncheck "Do not dispense", 1 Units Abdominal Tissue Given 06/10/2019 6:02 PM CDT 2 Units Arm, Right Given 06/09/2019 5:44 PM CDT 06/08/2019 10:36 PM CDT 1 Units Abdomina l Tissue insulin aspart U-100 (NOVOLOG FLEXPEN) Given injection PEN 0-6 Units 0-6 Units, Subcutaneous, BEFORE MEALS AND 2200, First dose on 06/06/19 at 1700, Until Discontinued, -POC glucose 181-220mg/dL at , , administer 1 unit insulin, at 22, 03* administer 0 units. -POC glucose 221-260mg/dL at , , administer 2 units insulin, at 22, 03* administer 1 unit. -POC glucose 261-300mg/dL at , , administer 3 units insulin, at 22, 03* administer 2 units. -POC glucose 301-350mg/dL at , , administer 4 units insulin, at 22, 03* administer 3 units. -POC glucos e 351-400mg/dL at , , administer 5 units insulin, at 22, 03* [...] request. DO NOT uncheck "Do not dispense", 5 Units Abdominal Tissue Given 06/08/2019 12:14 PM CDT 2 Units Abdominal Tissue Given 06/08/2019 8:42 AM CDT 06/11/2019 4:38 AM CDT 50 mg leucovorin calcium injection 50 mg Given 50 mg, Intravenous, EVERY 6 HOURS, First dose on 06/08/19 at 1630, Unti l Discontinued, PROTECT FROM LIGHT Begin exactly 24 hours after the start of Methotrexate. Continue until Methotrexate level less than or equal t o 0.1 micromole/L. Only contact the Attending Physician or a Chemotherapy Credentialed provider regarding this medication. Administer IV push over 1 minute, 50 mg Given 06/10/2019 10:21 PM CDT 50 mg Given 06/10/2019 4:26 PM CDT 06/11/2019 9:49 AM CDT 25 mg losartan (COZAAR) tablet 25 mg Given 25 mg, Oral, DAILY, First dose on Sat06/09/19 at 1230, Until Discontinued 25 mg Given 06/10/2019 10:02 AM CDT 25 mg Given 06/09/2019 12:16 PM CDT 06/06/2019 12:28 PM CDT 1 g 100 mL/hr magnesium sulfate 1 g/D5W 100 mL IVPB Given - New 1 g, Intravenous, 100 mL, Administer Bag over 1 Hours, EVERY 1 HOUR FOR 2 DOSES , 2 doses, First dose on 06/06/19 at 0800, Last dose on 06/06/19 at 0900, Each 1gm delivers 8.1 mEq Magnesium., 1 g 100 mL/hr Given - New Bag 06/06/2019 11:14 AM CDT 06/07/2019 3:11 AM CDT 1 g 100 mL/hr magnesium sulfate 1 g/D5W 100 mL IVPB Given - New 1 g, Intravenous, 100 mL, Administer Bag over 1 Hours, ONCE, 1 dose, [place] 06/07/19 at 0315, Each 1gm delivers 8.1 mEq Magnesium., 06/07/2019 4:47 PM CDT 1 g 100 mL/hr magnesium sulfate 1 g/D5W 100 mL IVPB Given - New 1 g, Intravenous, 100 mL, Administer Bag over 1 Hours, ONCE, 1 dose, [place] 06/07/19 at 1645, Each 1gm delivers 8.1 mEq Magnesium., 06/08/2019 8:39 AM CDT 1 g 100 mL/hr magnesium sulfate 1 g/D5W 100 mL IVPB Given - New 1 g, Intravenous, 100 mL, Administer Bag over 1 Hours, ONCE, 1 dose, [facility] 06/08/19 at 0745, Each 1gm delivers 8.1 mEq Magnesium., 06/08/2019 10:42 PM CDT 1 g 100 mL/hr magnesium sulfate 1 g/D5W 100 mL IVPB Given - New 1 g, Intravenous, 100 mL, Administer Bag over 1 Hours, ONCE, 1 dose, Sat06/08/19 at 2200, Each 1gm delivers 8.1 mEq Magnesium., 06/10/2019 10:45 AM CDT 1 g 100 mL/hr magnesium sulfate 1 g/D5W 100 mL IVPB Given - New 1 g, Intravenous, 100 mL, Administer Bag over 1 Hours, ONCE, 1 dose, Sat06/10/19 at 1045, Each 1gm delivers 8.1 mEq Magnesium., 06/07/2019 7:09 PM CDT 205.8 mL/hr methotrexate PF 7,455 mg, sodium Dose/Rate bicarbonate 25 mEq in dextrose 5% (D5W) Verify 823.2 mL IVPB 823.2 mL, Intravenous, Administer over 4 Hours, ONCE, 1 dose, Sat06/07/19 at 1230, Do not administer until urine pH greater than or equal to 7. NOTE: This is a HIGH ALERT Medication. SPECIAL TUBING REQUIRED , 205.8 mL/hr Given - New Bag 06/07/2019 4:24 PM CDT 06/09/2019 8:25 AM CDT 100 mg metoprolol tartrate (LOPRESSOR) tablet Given 100 mg 100 mg, Oral, TWICE DAILY, First dose (after last modification) on Sat 9 at 2100, Until Discontinued, Hold for heart rate < 60 bpm or systolic BP < 90 , 100 mg Given 06/08/2019 9:03 PM CDT 100 mg Given 06/08/2019 8:39 AM CDT 06/10/2019 8:21 PM CDT 75 mg metoprolol tartrate (LOPRESSOR) tablet Given 75 mg 75 mg, Oral, TWICE DAILY, 3 doses, Firs t dose (after last modification) on Sat06/09/19 at 2100, Last dose on Sat06/10/19 at 2100, Hold for heart rate < 60 bpm or systolic BP < 90, 75 mg Given 06/10/2019 10:02 AM CDT 75 mg Given 06/09/2019 8:41 PM CDT 06/11/2019 9:47 AM CDT 150 mg metoprolol XL (TOPROL XL) tablet 150 mg Given 150 mg, Oral, DAILY, First dose on Sat06/11/19 at 0900, Until Discontinued, Hold for heart rate < 60 bpm or systoli c BP < 90 tablets may be cut in half, DO NOT CRUSH or CHEW, 06/11/2019 12:15 PM CDT 100 mg nitrofurantoin monohyd/m-cryst Given (MACROBID) capsule 100 mg 100 mg, Oral, TWICE DAILY, First dose o n Sat06/10/19 at 2100, Until Discontinued 100 mg Given 06/10/2019 8:22 PM CDT ondansetron (ZOFRAN) injection 4 mg 4 mg, Intravenous, EVERY 6 HOURS PRN, Starting Sat06/10/19 at 0846, Until Jennifer 06/11/19 at 1437, Nausea/Vomiting Injectable 06/09/2019 12:16 PM CDT 16 mg ondansetron (ZOFRAN) tablet 16 mg Given 16 mg, Oral, EVERY 24 HOURS, 3 doses, First dose on Sat06/07/19 at 1200, Last dose on Sat06/09/19 at 1200, Give 30 minutes prior to chemotherapy when applicable., 16 mg Given 06/08/2019 12:59 PM CDT 16 mg Given 06/07/2019 3:47 PM CDT 06/11/2019 9:57 AM CDT 10 mg oxyCODONE (ROXICODONE, OXY-IR) tablet Given 5-10 mg 5-10 mg, Oral, EVERY 3 HOURS PRN, Starting Sat06/05/19 at 1553, Until Jennifer 06/11/19 at 1437, Pain PO 10 mg Given 06/11/2019 1:54 AM CDT 10 mg Given 06/10/2019 8:21 PM CDT 06/08/2019 10:17 AM CDT 3 Diluted mL perflutren lipid microspheres (DEFINITY) Given injection 1-20 Diluted mL 1-20 Diluted mL, Intravenous, ONCE PRN, 1 dose, Starting Sat06/08/19 at 0956, Until 06/08/19 at 1017, For Procedure, A box machine operator may only administer Definity through a saline lock. If IV is in use or a port, PICC, or central line is being used a nurse must administer. NOTE: This is a HIGH ALERT Medication., MAC Procedure Area Only - Medications 06/06/2019 8:44 PM CDT 20 mEq potassium chloride SR (K-DUR) tablet 20 Given mEq 20 mEq, Oral, ONCE, 1 dose, 06/06/19 at 2000, - Tablet may be dispersed in water. Place tab in 30 mL of water for 40-60 seconds. - Gently swirl until fully dispersed. If particles remain after admin, add small amount of water and admin remaining content. - DO NOT CRUSH. Tablet may be split in half. , 06/07/2019 4:47 PM CDT 20 mEq potassium chloride SR (K-DUR) tablet 20 Given mEq 20 mEq, Oral, ONCE, 1 dose, [place] 06/07/19 at 1645, - Tablet may be dispersed in water. Place tab in 30 mL of water for 40-60 seconds. - Gently swirl until fully dispersed. If particles remain after admin, add small amount of water and admin remaining content. - DO NOT CRUSH. Tablet may be split in half. , 06/06/2019 8:01 AM CDT 40 mEq potassium chloride SR (K-DUR) tablet 40 Given mEq 40 mEq, Oral, ONCE, 1 dose, 06/06/19 at 0745, Do NOT break or crush table t , 06/08/2019 10:32 PM CDT 40 mEq potassium chloride SR (K-DUR) tablet 40 Given mEq 40 mEq, Oral, ONCE, 1 dose, 06/08/19 at 2200, - Tablet may be dispersed in water. Place tab in 30 mL of water for 40-60 seconds. - Gently swirl until fully dispersed. If particles remain after admin, add small amount of water and admin remaining content. - DO NOT CRUSH. Tablet may be split in half. , prochlorperazine maleate (COMPAZINE) tablet 10 mg 10 mg, Oral, EVERY 6 HOURS PRN, Starting 06/07/19 at 1200, Until Jennifer 06/11/19 at 1437, Nausea/Vomiting PO 06/07/2019 1:25 PM CDT 50 mEq 50 mL/hr sodium bicarbonate 50 mEq in empty IV Given - New bag 1 each 50 mL IVPB (max conc) Bag 50 mEq, Intravenous, 50 mL, Administer over 1 Hours, NEEDED (ARROW POINT ATTACHER FROM RX), Starting 06/07/19 at 0600, Unti l Jennifer 06/11/19 at 0921, Other..., Urine pH less than 7, Give if urine pH less than 7. Send MAR message to pharmacy for dose., 06/10/2019 7:45 AM CDT 20 mL/hr sodium chloride 0.9 % infusion Dose/Rate 1,000 mL, Intravenous, at 20 mL/hr, Verify CONTINUOUS, Starting Sat06/10/19 at 0700, Until Jennifer 06/11/19 at 0921, Pre-Op 06/11/2019 9:48 AM CDT 25 mg spironolactone (ALDACTONE) tablet 25 mg Given 25 mg, Oral, DAILY, First dose on Sat06/10/19 at 1030, Until Discontinued, NURSING: Please educate patient and document: Avoid using salt substitutes which have a high potassium content (Nu-Salt)., 25 mg Given 06/10/2019 10:03 AM CDT documented in this encounter
--- OUTSIDE RECORDS SUMMARY | 2019-12-07 05:05 | XMS REPORT | Encounter Summary ---
Author Author [facility] Organization [facility] Address Unknown Phone Unavailable Care Team Providers Care Tavern Keeper Name Role Phone MelanieBertin kim PCP Madison [place] [id number] Reason for Visit * Auth/Cert Referred By Contact Referred To Contact Status Reason Specialty Diagnoses / Procedures Diagnoses DLBCL Encounter Details Care Team Description Date Type Department Erik Solo DO [address] [place] [address] 06/10/2019 [facility] [id number] [place] [address] Social History Date Tobacco Use Types [...] Signs Reading Time Taken Comments Vital Sign 125/80 06/10/2019 8:58 AM CDT Blood Pressure - - Pulse - - Temperature - - Respiratory Rate - - Oxygen Saturation - - Inhaled Oxygen Concentration 90.4 kg (199 lb 4.7 oz) 06/10/2019 8:58 AM CDT Weight 182.9 cm (6') 06/10/2019 8:58 AM CDT Height 27.03 06/10/2019 8:58 AM CDT Body Mass Index documented in [...] mg by 0 tablet mouth twice daily. 06/11/2019 aspirin EC 81 mg tablet Take 81 mg by 0 mouth daily. Take with food. 05/26/2019 06/11/2019 diltiazem CD (CARDIZEM Take one 30 capsule 1 CD) 240 mg capsule capsule by mouth daily. 05/03/2019 11/25/2019 docusate (COLACE) 100 mg [...] tablet by mouth at bedtime as needed. 05/26/2019 06/11/2019 metoprolol tartrate Take 1.5 90 tablet 1 (LOPRESSOR) 50 mg tablet tablets by mouth twice daily. 05/03/2019 11/25/2019 ondansetron (ZOFRAN) 4 mg [...] Procedure Name Priority Date/Time Associated Diag nosis PV SONO GUID CENT Routine 06/10/2019 8:57 AM CDT documented in this encounter Results * PV SONO GUID CENT (06/10/2019 8:57 [...] reviewed the study an d agree with nitroglycerin separator operator interpretation. Performing Organization Address City/State/Zipcode Ph one Number OTHER OUTSIDE LAB documented in this encounter Visit Diagnoses Not on filedocumented in this encounter
--- OUTSIDE RECORDS SUMMARY | 2019-12-07 05:06 | XMS REPORT | Encounter Summary ---
Author Author [facility] Organization [facility] Address Unknown Phone Unavailable Care Team Providers Care Waste Minimization Technician Name Role Phone Bertin Cole DO PCP Madison [place] [id number] Reason for Visit * Auth/Cert Referred By Contact Referred To Contact Status Reason Specialty Diagnoses / Procedures Diagnoses DLBCL Encounter Details Care Team Description Date Type Department Terry Mustafa MD [address] [facility] [id number] [place] [address] CLOSURE PSEUDOANEURYSM BY INJECTION- LOW ER EXTREMITY 06/10/2019 Surgery [facility] Cardiovascular Labs [address] [place], [place] [id number] Social History Date Tobacco Use Types Packs/Day [...] PM CDT Physician Discharge Summary Name: Refugio Tse Date Of : 1960 Age: 59 years [...] or concerns regarding your hospital stay, call [phone]. Discharging attending physician: ERIK MORELAND [[id number]] Low Sodium Diet You will need to monitor the amount of sodium in your diet. Do not eat more nisha n 2g (grams) or 2000mg (milligrams) per day. If you have questions regarding your diet at home, you may contact a dietitian shila olivia . Heart Failure Information You are at [...] 5 pounds in a week, call your transportation analyst immediately. 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 male with PMH [...] of Dr. Cueva and Dr. Carter [facility] - Progressive back pain since September 2018. [...] - Discontinued diltiazem (06/08) Plan: > Restarted TIRE BEADER MAKER Eliquis > Continue amiodarone PO 400 mg BID, follow dose adjustment schedule > Toprol XL 150 mg > Monitor daily electrolytes, Mg, Phos; replete as needed CAD s/p CARLY 05/15/19 Heart Failure with EF 30% -EF 35% in 2014 per OSH notes -Echo 04/27; EF 55%, mild LV dysfunction, madelaine-apical akinesis suggesting prior anterior TN, mild LA enlargement -CARLY placed in 2014 [...] ofDVT/PE - Hospitalized for syncopal event at [facility] 05/14-05/18. CTA demons trated "extensive [...] 6 days Bactrim DM Type II - TIRE BEADER MAKER metformin - HA1c: 5.7 05/20/19 Plan > hold metformin, monitor glucose > continue TIRE BEADER [employer]KER gabapentin FEN: IVF per protocol, Lytes PRN, [...] plan unless otherwise noted. Staff name: Erik HernandezKiko Moreland, DO Voalte or Pager [phone] Date:06/11/2019 Subjective No overnight events. Patient feels [...] and Respiratory Meds:acetaminophen Q4H PRN, alteplase PRN (Fiberglass Auto Body Repairer from Rx), aluminum/magnesium hydroxide Q4H PRN, cyclobenzaprine [...] Testing (Last 24 hours) Glucose: (!) 114 (06/11/19558) POC Glucose (Download): (!) 114 (06/11/19825) Urine Dipstick Urine pH: 7.5 (06/11/19825) Urine Dipstick Lot #: [id number] (06/11/19825) Radiology and other Diagnostics Review: Pertinent radiology reviewed. Traci Mcdaniel MD Internal Medicine PGY-1 Pager: [phone], Available on voalte * Millicent Osuna, LORETOD - 06/11/2019 10:23 AM CDT Heart Failure Medication Education Refugio Tse accepted counseling and was engaged. he verbalized [...] Progress Note Today's Date: 06/11/2019 Name: Refugio Tse Admission Date: 06/05/2019 LOS: 6 days Assessment/Plan: [...] hepatitis C s/p curative treatment, admission to [facility] in [place] 05/14 - 05/18/19 for atrial fibrillation with [...] has undergone a pseudoaneurysm thrombin injection on with no evidence of it on repeat [...] PGY5 Fellow in Cardiovascular diseases Pager number: [phone] Patient discussed with , Cardiology Attending __ Subjective: Refugio Tse is a 59 y.o. male. Overnight Events:No [...] and Respiratory Meds:acetaminophen Q4H PRN, alteplase PRN (Fiberglass Auto Body Repairer from Rx), aluminum/magnesium hydroxide Q4H PRN, cyclobenzaprine [...] pH: 7.5 (06/11/19825) Urine Dipstick Lot #: [id number] (06/11/19825) Cardiographics: ECG: atrial fibrillation with RVR at a rate of 120bpm, possible old septal myoca rdial infarction, poor R wave progression Chest X-Ray: no pulmonary edema, mild bibasilar atelectasis or scarring Austin Walsh MD * Rita Zambrano, HEALTH CAREERS INSTRUCTOR - 06/11/2019 9:18 AM CDT Cardiology Daily Progress Note Refugio Tse Admission Date: 06/05/2019 Assessment/Plan: Principal Problem: Diffuse [...] - 06/10 he was taken to the [facility] and underwent succesful thrombin injection of the pseudoaneurysm. - post procedure duplex looked good and no evidence of pseudo or AV fistula - 06/11 - ok to resume Eliquis this morning. Continue ASA and Plavix uninterrupt ed for minimum of 6-12 months. - He follows with Dr. Vega in [place] and should follow up in the next 1 kimberly h. May take off tegaderm dressing this evening when he showers. Plan: Will place activity and incision care in O2. No further Interventional Cardiolog y procedures planned. Will sign off. Thank you for allowing us to participate in the care of this very nice gentleman . Rita Zambrano, HEALTH CAREERS INSTRUCTOR ([id number]) __ Subjective: Denies complaints other than some [...] 300 mg Oral QDAY 300 mg at 06/10/191001 amiodarone (CORDARONE) tablet 400 mg 400 mg Oral BID 400 mg at 06/10/192020 Followed by [START ON 06/16/2019] amiodarone (CORDARONE) tablet 400 mg 400 mg Oral QDAY Followed by [START ON 06/23/2019] amiodarone (CORDARONE) tablet 200 mg 200 mg Oral QDAY apixaban (ELIQUIS) tablet 5 mg 5 mg Oral BID atorvastatin (LIPITOR) tablet 40 mg 40 mg Oral QDAY 40 mg at 06/10/191001 clopiDOGrel (PLAVIX) tablet 75 mg 75 mg [...] thrombus in visualized veins Rita Zambrano APRN ([id number]) * Rita Zambrano APRN - 06/10/2019 4:50 PM CDT Interventional cardiology progress: Post thrombin injection this morning and tolerated well. Right groin duplex shows resolution of pseudoaneurysm, and no evidence of AV fis gerri. Ok to resume anticoagulation with AM dose. Rita Zambrano APRN-Loan Interventional Cardiology Pager [phone] Interpretation Summary 1. No evidence of pseudoaneurysm [...] Progress Note Today's Date: 06/10/2019 Name: Refugio Tse Admission Date: 06/05/2019 LOS: 5 days Assessment/Plan: [...] hepatitis C s/p curative treatment, admission to [facility] in [place] 05/14 - 05/18/19 for atrial fibrillation with [...] spontaneously on Saturday and maintains sinus rhy since then Atrial fibrillation: -patient has been [...] PGY5 Fellow in Cardiovascular diseases Pager number: [phone] Patient discussed with , Cardiology Attending __ Subjective: Refugio Tse is a 59 y.o. male. Overnight Events:No new events noted. The patient denies palpitations, dyspnea, orthopnea, PND overnight. He is maintainin g sinus rhythm on amiodarone. AC was held due to pseudoaneurysms found Review of Systems: A 14 point review of systems was negative except for: Cardiovascular: positive f or lower extremity edema Objective: Medications: Scheduled Meds: [Nov] allopurinol (ZYLOPRIM) tablet 300 mg 300 mg [...] tablet 25 mg 25 mg Oral QDAY [NOV Hold] magnesium sulfate 1 g/D5W 100 mL IVPB 1 g Intravenous ONCE [NOV Hold] metoprolol tartrate (LOPRESSOR) tablet 75 mg 75 mg Oral BID Continuous Infusions: dextrose 5% (D5W) with sodium bicarbonate 150 mEq 1,150 mL IV infusion 75 mL /hr at 06/10/19 0314 sodium chloride 0.9 % infusion PRN and Respiratory Meds:[NOV Hold] alteplase PRN (Fiberglass Auto Body Repairer from Rx), [NOV Hold] cyclobenzaprine TID PRN, [...] icarbonate 1 mEq/mL IVPB (max conc) PRN (Fiberglass Auto Body Repairer from Rx), [NOV Hold] sodium ch loride [...] Range Color,UA YELLOW Turbidity,UA CLEAR CLEAR-CLEAR Specific Kimper-Urine 1.006 1.003 - 1.035 pH,UA 8.0 5.0 [...] Testing: (Last 24 hours): Glucose: (!) 121 (06/10/19319) POC Glucose (Download): (!) 167 (06/09/192217) Urine Dipstick Urine pH: 7.5 (06/09/192256) Urine Dipstick Lot #: [id number] (06/09/192002) Cardiographics: ECG: atrial fibrillation with RVR at a rate of 120bpm, possible old septal myoca rdial infarction, poor R wave progression Chest X-Ray: no pulmonary edema, mild bibasilar atelectasis or scarring Austin Walhs MD Associated attestation - Adelita Whaley MD - 06/10/2019 7:02 PM CDT Cardiology Staff Physician Attestation I have personally interviewed and examined the patient. [facility], pertinent imaging / laboratory studies, and all pertinent medical d ocumentation including the history, physical, and impression. I agree with the jointly formulated treatment plan as outlined by the city letter carrier. Carlton Whaley MD [facility] Cardiology [id number] * Erik Moreland DO - 06/10/2019 7:19 AM CDT General Progress Note Name: Refugio Tse Today's Date: 06/10/2019 Admission Date: 06/05/2019 LOS: [...] (diffuse large B cell lymphoma) (HCC) Refugio Tse is a 59 y.o. male with PMH [...] LV dysfunction, madelaine-apical akinesis suggesting prior anterior TN, mild LA enlargement -CARLY placed in 2014 [...] ofDVT/PE - Hospitalized for syncopal event at [facility] 05/14-05/18. CTA demons trated "extensive [...] LE ultrasound clears DM Type II - TIRE BEADER MAKER metformin - HA1c: 5.7 05/20/19 Plan > hold metformin, monitor glucose > continue TIRE BEADER MAKER gabapentin FEN: IVF per protocol, Lytes PRN, [...] name: Erik Moreland, DO Voalte or Pager [phone] Date:06/10/2019 Subjective Pt returned from thrombin injection [...] % infusion PRN and Respiratory Meds:alteplase PRN (Fiberglass Auto Body Repairer from Rx), cyclobenzaprine TID MT N, docusate BID PRN, LORazepam (ATIVAN) injection Q6H PRN, LORazepam Q6H PRN, melatonin QHS PRN, ondansetron Q8H PRN, oxyCODONE Q3H PRN, polyethylene glycol 3 350 BID PRN, prochlorperazine Q6H PRN, prochlorperazine Q6H PRN, senna/docusate BID PRN, sodium bicarbonate 1 mEq/mL IVPB (max conc) PRN (Fiberglass Auto Body Repairer from Rx), sod ium chloride 0.9 % [...] Testing (Last 24 hours) Glucose: (!) 121 (06/10/190) POC Glucose (Download): (!) 167 (06/09/192217) Urine Dipstick Urine pH: 7.5 (06/09/192256) Urine Dipstick Lot #: [id number] (06/09/192002) Radiology and other Diagnostics Review: Pertinent radiology reviewed. Traci Mcdaniel MD Internal Medicine PGY-1 Pager: [phone], Available on voalte * Damaris Carter - 06/09/2019 1:31 PM CDT CLINICAL NUTRITION Clinical Nutrition Assessment Summary NAME:Refugio Tse :1960 AGE: 59 y.o. ADMISSION DATE: 06/05/2019 [...] Time Frame: Throughout stay Damaris Carter RDN, LD Voalte [phone] [id number] * Austin Walsh MD - 06/09/2019 10:16 AM CDT Cardiology Progress Note Today's Date: 06/09/2019 Name: Refugio Tse Admission Date: 06/05/2019 LOS: 4 days Assessment/Plan: [...] hepatitis C s/p curative treatment, admission to [facility] in [place] 05/14 - 05/18/19 for atrial fibrillation with [...] PGY5 Fellow in Cardiovascular diseases Pager number: [phone] Patient discussed with , Cardiology Attending __ Subjective: Refugio Tse is a 59 y.o. male. Overnight Events:No [...] 06/08/19 1702 PRN and Respiratory Meds:alteplase PRN (Fiberglass Auto Body Repairer from Rx), cyclobenzaprine TID MT N, docusate BID PRN, LORazepam (ATIVAN) injection Q6H PRN, LORazepam Q6H PRN, melatonin QHS PRN, ondansetron Q8H PRN, oxyCODONE Q3H PRN, polyethylene glycol 3 350 BID PRN, prochlorperazine Q6H PRN, prochlorperazine Q6H PRN, senna/docusate BID PRN, sodium bicarbonate 1 mEq/mL IVPB (max conc) PRN (Fiberglass Auto Body Repairer from Rx), sod ium chloride 0.9 % [...] (Last 24 hours): Glucose: (!) 328 (06/09/19 0445) POC Glucose (Download): (!) 183 (06/09/19 2307) Urine Dipstick Urine pH: 7.5 (06/09/19 0834) Urine Dipstick Lot #: [id number] (06/08/19 1127) pH (Litmus Test) Urine pH: 7.5 (06/09/19 0700) pH Lot #: [id number] (06/09/19 07) Cardiographics: ECG: atrial fibrillation with RVR at a rate of 120bpm, possible old septal myoca rdial infarction, poor R wave progression Chest X-Ray: no pulmonary edema, mild bibasilar atelectasis or scarring Austin Walsh MD Associated attestation - Adelita Whaley MD - 06/09/2019 11:17 PM CDT Cardiology Staff Physician Attestation I have personally interviewed and examined the patient. [facility], pertinent imaging / laboratory studies, and all pertinent medical d ocumentation including the history, physical, and impression. I agree with the jointly formulated treatment plan as outlined by the city letter carrier., Patient in normal sinus rhythm on antiarrhythmic [...] injection . Holding anticoagulation. Carlton Whaley MD [facility] Cardiology Pager [phone] * Erik Moreland DO - 06/09/2019 7:42 AM CDT General Progress Note Name: Refugio Tse Today's Date: 06/09/2019 Admission Date: 06/05/2019 LOS: [...] (diffuse large B cell lymphoma) (HCC) Refugio Tana Tse is a 59 y.o. male with PMH [...] LV dysfunction, madelaine-apical akinesis suggesting prior anterior TN, mild LA enlargement -CARLY placed in 2014 [...] ofDVT/PE - Hospitalized for syncopal event at [facility] 05/14-05/18. CTA demons trated "extensive bilateral pulmonary emboli." Because patient was hypotensive, he was taken to interventional cardiology who performed catheter directed thromb olysis with TPA -No signs of right heart failure on right heart cath. Discharged on 5 mg Eliquis BID Plan: > Continue Eliquis 5mg BID > US Right Lower Limb pending DM Type II - TIRE BEADER MAKER metformin - HA1c: 5.7 05/20/19 Plan > hold metformin, monitor glucose > continue TIRE BEADER MAKER gabapentin FEN: IVF per protocol, Lytes PRN, [...] name: Erik Moreland, DO Voalte or Pager [phone] Date:06/09/2019 Subjective Pt had 4 beats NSVT [...] 06/08/19 1702 PRN and Respiratory Meds:alteplase PRN (Fiberglass Auto Body Repairer from Rx), cyclobenzaprine TID MT N, docusate BID PRN, LORazepam (ATIVAN) injection Q6H PRN, LORazepam Q6H PRN, melatonin QHS PRN, ondansetron Q8H PRN, oxyCODONE Q3H PRN, polyethylene glycol 3 350 BID PRN, prochlorperazine Q6H PRN, prochlorperazine Q6H PRN, senna/docusate BID PRN, sodium bicarbonate 1 mEq/mL IVPB (max conc) PRN (Fiberglass Auto Body Repairer from Rx), sod ium chloride 0.9 % [...] 500 mg by mouth twice daily with andreas ballard. Taking metoprolol tartrate (LOPRESSOR) 50 mg tablet [...] 97 (06/09 411) Respirations: 16 PER MINUTE (06/09 411) SpO2: 98 % (06/09 411) Height: 185 cm (72.83") (06/08 955) BP: (110-120)/(69-83) Temp: [36.3 C (97.3 F)-36.6 [...] (Last 24 hours) Glucose: (!) 328 (06/09/19 5048) POC Glucose (Download): (!) 246 (06/08/19 6279) Urine Dipstick Urine pH: 7.5 (06/09/19 0351) Urine Dipstick Lot #: [id number] (06/08/19 1127) pH (Litmus Test) Urine pH: 7.5 (06/08/192029) Radiology and other Diagnostics Review: Pertinent radiology reviewed. Traci Mcdaniel MD Internal Medicine PGY-1 Pager: [phone], Available on voalte * Austin Walsh MD - 06/08/2019 8:32 AM CDT Cardiology Progress Note Today's Date: 06/08/2019 Name: Refugio Tse Admission Date: 06/05/2019 LOS: 3 days Assessment/Plan: [...] hepatitis C s/p curative treatment, admission to [facility] in [place] 05/14 - 05/18/19 for atrial fibrillation with [...] -digoxin would not be advisable in the vermin exterminator in a patient with likely inabil ity [...] PGY5 Fellow in Cardiovascular diseases Pager number: [phone] Patient discussed with , Cardiology Attending __ Subjective: Refugio Tse is a 59 y.o. male. Overnight Events:No [...] 06/07/19 2312 PRN and Respiratory Meds:alteplase PRN (Fiberglass Auto Body Repairer from Rx), cyclobenzaprine TID MT N, docusate BID PRN, LORazepam (ATIVAN) injection Q6H PRN, LORazepam Q6H PRN, melatonin QHS PRN, ondansetron Q8H PRN, oxyCODONE Q3H PRN, polyethylene glycol 3 350 BID PRN, prochlorperazine Q6H PRN, prochlorperazine Q6H PRN, senna/docusate BID PRN, sodium bicarbonate 1 mEq/mL IVPB (max conc) PRN (Fiberglass Auto Body Repairer from Rx), sod ium chloride 0.9 % [...] the patient. I have reviewed the med ica record, pertinent imaging / laboratory studies, and all pertinent medical d ocumentation including the history, physical, and impression. I agree with the jointly formulated treatment plan as outlined by the city letter carrier, Dr. Natty gatica. Mr. Rosales is a [...] 1. He plans to follow with his transportation analyst at time of discharge. Carlton Whaley MD [facility] Cardiology Pager [phone] Addendum 15:06 06/08/19: Repeat 2d echocardiogram with moderate reduction LVEF est 30-35%. Would proceed with amiodarone therapy for rhythm. Would discontinue Diltiazem AV alberto agent given negative inotrope characteristics. Will monitor response to d /c of diltiazem. Will look to transition his beta ying to Toprol XL +/- addition of losartan f or initiation of GDMT. Adelita Whaley II MD Cardiovascular Medicine [facility] Pager # [phone] * Erik Moreland, - 06/08/2019 7:42 AM CDT General Progress Note Name: Refugio Tse Today's Date: 06/08/2019 Admission Date: 06/05/2019 LOS: [...] (diffuse large B cell lymphoma) (HCC) Refugio Tse is a 59 y.o. male with PMH [...] 1 dose received 06/06 Plan: > Continue TIRE BEADER MAKER diltiazem, metoprolol, Eliquis > Cardiology following - Start Amiodarone vs digoxin > Monitor daily electrolytes, Mg, Phos; replete as needed CAD s/p CARLY 05/15/19 Heart Failure with Recovered Ejection Fraction - acute on chronic HLD -EF 35% in 2014 per OSH notes -Echo 04/27; EF 55%, mild LV dysfunction, madelaine-apical akinesis suggesting prior anterior TN, mild LA enlargement -CARLY placed in 2014 [...] ofDVT/PE - Hospitalized for syncopal event at [facility] 05/14-05/18. CTA demons trated "extensive bilateral pulmonary emboli." Because patient was hypotensive, he was taken to interventional cardiology who performed catheter directed thromb olysis with TPA -No signs of right heart failure on right heart cath. Discharged on 5 mg Eliquis BID Plan: > Continue Eliquis 5mg BID DM Type II - TIRE BEADER MAKER metformin - HA1c: 5.7 05/20/19 Plan > hold metformin, monitor glucose > continue TIRE BEADER MAKER gabapentin FEN: IVF per protocol, Lytes PRN, regular diet DVT Ppx: Eliquis Code Status: Full Code Dispo: Continue admission to hematology. Pt seen and discussed with Dr. Moreland. Traci Mcdaneil MD Internal Medicine PGY1 (Pager), Available on Voalte ATTESTATION I have personally performed a history and physical exam on the patient. I have d iscussed the case with the resident and concur with the resident documentation o f history, physical exam, assessment, and treatment plan unless otherwise noted. Staff name: Erik Moreland, DO Voalte or Pager [phone] Date:06/08/2019 Subjective Overnight: minor interval of NSVT [...] 06/07/19 2312 PRN and Respiratory Meds:alteplase PRN (Fiberglass Auto Body Repairer from Rx), cyclobenzaprine TID MT N, docusate BID PRN, LORazepam (ATIVAN) injection Q6H PRN, LORazepam Q6H PRN, melatonin QHS PRN, ondansetron Q8H PRN, oxyCODONE Q3H PRN, polyethylene glycol 3 350 BID PRN, prochlorperazine Q6H PRN, prochlorperazine Q6H PRN, senna/docusate BID PRN, sodium bicarbonate 1 mEq/mL IVPB (max conc) PRN (Fiberglass Auto Body Repairer from Rx), sod ium chloride 0.9 % [...] (Last 24 hours) Glucose: (!) 238 (06/08/19 7972) POC Glucose (Download): (!) 285 (06/08/19 0016) pH (Litmus Test) Urine pH: 7.5 (06/08/19 0657) Radiology and other Diagnostics Review: Pertinent radiology reviewed. Tarci Mcdaniel MD Internal Medicine PGY-1 Pager: [phone], Available on voalte * Pedro Najera, DENNY - 06/07/2019 3:07 PM CDT Patient arrived to room # ([id number]) via wheelchair accompanied by transport. Pat ient [...] Progress Note Today's Date: 06/07/2019 Name: Refugio Tse Admission Date: 06/05/2019 LOS: 2 days Assessment/Plan: [...] hepatitis C s/p curative treatment, admission to [facility] in [place] 05/14 - 05/18/19 for atrial fibrillation with [...] if there are questions. __ Subjective: Refugio Tse is a 59 y.o. male. Overnight Events:No [...] 06/07/19 0640 PRN and Respiratory Meds:alteplase PRN (Fiberglass Auto Body Repairer from Rx), cyclobenzaprine TID MT N, docusate BID PRN, LORazepam (ATIVAN) injection Q6H PRN, LORazepam Q6H PRN, melatonin QHS PRN, ondansetron Q8H PRN, oxyCODONE Q3H PRN, polyethylene glycol 3 350 BID PRN, prochlorperazine Q6H PRN, prochlorperazine Q6H PRN, senna/docusate BID PRN, sodium bicarbonate 1 mEq/mL IVPB (max conc) PRN (Fiberglass Auto Body Repairer from Rx), sod ium chloride 0.9 % TKO infusion PRN, sodium chloride 0.9% irrigation bottle PRN Vital Signs: Last Filed Vital Signs: 24 Hour Range BP: 94/60 (06/07 1118) Temp: 36.7 [...] Susana Garcia MD PGY6 Cardiovascular Disease Pager [phone] Associated attestation - Inocencio Mcdonough MD - 06/07/2019 5:14 PM CDT Cardiology Staff Note Mr. Tse was -1.2 L last 24 hours, -0.9 [...] fin dings have been discussed with the Hydrographer. I have reviewed the diagn ostic tests. I agree with the below. Staff name: Inocencio Mcdonough MD Date: 06/07/2019 * Ruby Doss MD - 06/07/2019 7:36 AM CDT General Progress Note Name: Refugio Tse Today's Date: 06/07/2019 Admission Date: 06/05/2019 LOS: [...] (diffuse large B cell lymphoma) (HCC) Refugio Tse is a 59 y.o. male with PMH [...] with Dr. 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 diltiazem, metoprolol, Eliquis > Started digoxin > Cardiology following - january plan on cardioversion this week > Monitor daily electrolytes, Mg, Phos; replete as needed CAD s/p CARLY 05/15/19 Heart Failure with Recovered Ejection Fraction - acute on chronic HLD -EF 35% in 2014 per OSH notes -Echo 04/27; EF 55%, mild LV dysfunction, madelaine-apical akinesis suggesting prior anterior TN, mild LA enlargement -CARLY placed in 2014 [...] ofDVT/PE - Hospitalized for syncopal event at [facility] 05/14-05/18. CTA demons trated "extensive bilateral pulmonary emboli." Because patient was hypotensive, he was taken to interventional cardiology who performed catheter directed thromb olysis with TPA -No signs of right heart failure on right heart cath. Discharged on 5 mg Eliquis BID Plan: > Continue Eliquis 5mg BID DM Type II - TIRE BEADER MAKER metformin - HA1c: 5.7 05/20/19 Plan > hold metformin, monitor glucose > continue TIRE BEADER MAKER gabapentin > patient requested glucose checks FEN: [...] 06/07/19 0640 PRN and Respiratory Meds:alteplase PRN (Fiberglass Auto Body Repairer from Rx), cyclobenzaprine TID MT N, docusate BID PRN, LORazepam (ATIVAN) injection Q6H PRN, LORazepam Q6H PRN, melatonin QHS PRN, ondansetron Q8H PRN, oxyCODONE Q3H PRN, polyethylene glycol 3 350 BID PRN, prochlorperazine Q6H PRN, prochlorperazine Q6H PRN, senna/docusate BID PRN, sodium bicarbonate 1 mEq/mL IVPB (max conc) PRN (Fiberglass Auto Body Repairer from Rx), sod ium chloride 0.9 % [...] 5:00 AM CDT Pt had 16 run Pending Sale To [facility], physician notified. Mag replacement ordered. WCTM * Traci Mcdaniel MD - 06/06/2019 7:56 AM CDT General Progress Note Name: Refugio Tse Today's Date: 06/06/2019 Admission Date: 06/05/2019 LOS: [...] (diffuse large B cell lymphoma) (HCC) Refugio Tse is a 59 y.o. male with PMH [...] LV dysfunction, madelaine-apical akinesis suggesting prior anterior TN, mild LA enlargement -CARLY placed in 2014 [...] with Dr. 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 diltiazem, metoprolol, Eliquis, Plavix, ASA > Monitor daily electrolytes, Mg, Phos; replete as needed Hx ofDVT/PE - Hospitalized for syncopal event at [facility] 05/14-05/18. CTA demons trated "extensive bilateral pulmonary emboli." Because patient was hypotensive, he was taken to interventional cardiology who performed catheter directed thromb olysis with TPA -No signs of right heart failure on right heart cath. Discharged on 5 mg Eliquis BID Plan: > Continue Eliquis 5mg BID DM Type II - TIRE BEADER MAKER metformin - HA1c: 5.7 05/20/19 Plan > hold metformin, monitor glucose > continue TIRE BEADER MAKER gabapentin FEN: IVF per protocol, Lytes PRN, regular diet DVT Ppx: Eliquis Code Status: Full Code Dispo: Continue admission to hematology for planned chemotherapy. Pt seen and discussed with Dr. Jefferson. Traci Mcdaniel M.D. PGY-1 Internal Medicine Pager: [phone], Available on Voalte Subjective Pt received 1 un RBC overnight Hb 6.9. Pt had no complaints today. Patient said he has used a walker since his fall at [facility] due to instability. D enies palpitations. Denies [...] 06/06/19 0434 PRN and Respiratory Meds:alteplase PRN (Fiberglass Auto Body Repairer from Rx), cyclobenzaprine TID MT N, docusate BID PRN, melatonin QHS PRN, ondansetron Q8H PRN, oxyCODONE Q3H PRN, polyethylene glycol 3350 BID PRN, senna/docusate BID PRN, sodium bicarbonate 1 mEq/mL IVPB (max conc) PRN (Fiberglass Auto Body Repairer from Rx), sodium chloride 0.9 % TKO [...] Vital Signs: Last Filed Vital Signs: 24 Kaurna r Range BP: 108/68 (06/06 729) Temp: 37.2 C (99 F) (06/06 729) Pulse: 112 (06/06 729) Respirations: 18 PER MINUTE (06/06 729) SpO2: 94 % (06/06 729) Height: 185.4 cm (73") (06/05 1535) BP: (90-110)/(60-79) Temp: [36.5 C (97.7 F)-37.2 [...] Traci Mcdaniel M.D. PGY-1 Internal Medicine Pager: [phone] Associated attestation - Maikol Cristobal MD - [...] PM CDT RT Adult Assessment Note NAME:Refugio Tse :1960 AGE: 59 y.o. ADMISSION DATE: 06/05/2019 [...] PM CDT Patient arrived to room # (1426) via wheelchair accompanied by transport. Patien t [...] Admission History and Physical Examination Name: Refugio Tse 6 Admission Date: 06/05/2019 Assessment/Plan: Principal Problem: [...] with Dr. 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 diltiazem, metoprolol, Eliquis, Plavix, ASA CAD s/p CARLY 05/15/19 Heart Failure with Recovered Ejection Fraction HLD -EF 35% in 2014 per OSH notes -Echo 04/27; EF 55%, mild LV dysfunction, madelaine-apical akinesis suggesting prior anterior TN, mild LA enlargement -CARLY placed in 2014 -CARLY placed 05/15/19.Patient had CP and mild elevation in troponin following ca theter directed thrombolysis, but no mention of an EKGor luminal abnormalities on angiogram Plan > Continue Lipitor 40 mg qd > Continue ASA and Plavix > Consult Cardiology Hx of DVT/PE - Hospitalized for syncopal event at [facility] 05/14-05/18. CTA demons trated "extensive bilateral pulmonary emboli." Because patient was hypotensive, he was taken to interventional cardiology who performed catheter directed thromb olysis with TPA - No signs of right heart failure on right heart cath. Discharged on 5 mg Lyndsay balbir BID Plan: > Continue Eliquis 5mg BID DM Type II -TIRE BEADER MAKER metformin -Hgb A1c 05/20: 5.7 Plan > Hold metformin > Monitor glucose HCV - S/p treatment in 2015 Fluids, electrolytes and Nutrition: IVF:per protocol Electrolytes:replacing prn Diet:regular Prophylaxis: DVT:Eliquis Code status: FULL Disposition:admit to hematology Patient discussed with . Traci Mcdaniel MD Internal Medicine PGY1 Pager [phone], available on Voalte __ Primary Care Physician: Bertni Cole Chief Complaint: Admission for chemotherapy for DLBCL History of Present Illness: Refugio Tse is a 59 y.o. male present for [facility] ed chemotherapy with high dose methotrexate Dose [...] to his health. He followed up with [facility] outpatient transportation analyst for Afib RVR, which he only notices [...] file Gets together: Not on file Attends yarsani service: Not on file Active member of [...] tablet by mouth daily. Take th food. apixaban (ELIQUIS) 5 mg tablet [...] Traci Mcdaniel MD Internal Medicine PGY-1 Pager [phone], Available on Voalte ATTESTATION I personally have [...] CARDIAC CATH REPORT [facility] CARDIAC CATHETERIZATION REPORT Page 1 REFUGIO Montgomery : 1960 KU#: [id number] MR #/Billing ID #: [id number] / [id number] DATE: 06/10/2019 PIZZA DELIVERY DRIVER: Terry Mustafa MD DICTATING PROVIDER: Terry Mustafa MD REFERRING PHYSICIAN: PROCEDURES PERFORMED: Ultrasound guided pseudoaneurysm thrombin injection. PROCEDURE: Mr. 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 It was e lected to go ahead and proceed with thrombin injection for closure as opposed to surgical ligation. The risks and benefits were discussed and we went ahead and proceeded. Mr. Tse was brought to the cardiac catheterization lab [...] fo r 4 hours. MD JOÃO Cheney/MedOma /[id number] cc: documented in this encounter Consult Notes * Chavez Zambranoly Sommer, HEALTH CAREERS INSTRUCTOR - 06/09/2019 4:43 PM CDT Admission Date: [...] discuss further with Interventional Cardiologists in the laborer fryer farm tomorrow, regarding thrombin injection. It was discussed [...] injection. Rita Zambrano APRN-C Interventional Cardiology Pager [phone] Telemetry atrial fibrillation with controlled rate. Rita Zambrano APRN pager [phone] _ History of Present Illness Refugio Tse is a 59 y.o. male patient with [...] n 2014. He was recently admitted to [facility] in [facility] from 04/17 9 - 05/19 after a [...] cardiomyopathy. I did find an echo at [facility] showing an LVEF of 40 to 45% in 2016. His echo at outside [facility] in 2017 showed a normal LVEF at 55%. Echo on April 27, 2019 at showed ev idence of fairly extensive anteroapical akinesis suggesting prior anterior TN an d overall normal left ventricular ejection [...] and diabetes mellitus. His ca rdiologist at [facility] was Dr. Vega. Mr. Tse was admitted for planned chemotherapy. Right ower [...] mg 75 mg Oral BID alteplase PRN (Fiberglass Auto Body Repairer from Rx), cyclobenzaprine TID PRN, docusate BID PRN, Junior zepam (ATIVAN) injection Q6H PRN, LORazepam Q6H PRN, melatonin QHS PRN, ondans etron Q8H PRN, oxyCODONE Q3H PRN, polyethylene glycol 3350 BID PRN, prochlorpera zine Q6H PRN, prochlorperazine Q6H PRN, senna/docusate BID PRN, sodium bicarbona te 1 mEq/mL IVPB (max conc) PRN (Fiberglass Auto Body Repairer from Rx), sodium chloride 0.9 % TKO [...] pseudoaneurysm, right groin. Rita Zambrano APRN pager [phone] Associated attestation - Castro Newsome MD - 06/10/2019 8:04 AM CDT Vascular medicine staff attestation note: This note reflects my evaluation and assessment of the patient on 06/09/2019. I saw the patient and discussed her findings and plan with him and his along with advanced practice provider Rita Allisonantoniojamshid. The assessment and plan det colin in [...] Terry Mustafa in the cardiac catheterization [facility] who has reviewed the films and feels [...] weeks old. The patient does have a chisel mortiser operator in [facility] who could follow it closely [...] epatitis C s/p curative treatment, admission to [facility] in [place] 05/14 - for dyspnea and was found [...] it at that time. After discharge from [facility] he followed up with a transportation analyst who increased the metoprolol because his heart [...] (HCC) CAD (coronary artery disease) Back pain Bertin Cole Medical History: Diagnosis Date Back pain CAD [...] daily. Take th food. 90 tablet 3 apixaban (ELIQUIS) [...] hepatitis C s/p curative treatment, admission to [facility] in [place] 05/14 - 05/18/19 for atrial fibrillation with [...] patient was seen and discussed with attending transportation analyst . Susana Garcia MD, PGY-6 Cardiovascular Disease Pager [phone] Associated attestation - Inocencio Mcdonough MD - 06/06/2019 7:23 PM CDT Cardiology Staff Note Mr. Tse is a 59-year-old male with diffuse large [...] in 2014 in the setting of his TN, with now persistent A. fib, which was in the setting of bilateral PE treated with catheter directed thrombolytics, as well as DVT, and more recent lower extremity edema. His left heart catheterization at [facility] was on 05/15/2019, the left main wa [...] mm Xience drug-eluting stent. His echocardiogram at [facility] was on 05/14/2019, the EF was 40 [...] AM CDT Case Management Progress Note NAME:Refugio Tse :[birth year] AGE: 59 y.o. ADMISSION DATE: 06/05/2019 DAYS ADMITTED: LOS: 6 days Todays Date: 06/11/2019 Plan Discharge home today. Sw completed [facility] referral for Jun.16 9. Interventions ? Support Support: Pt/Family Updates re:POC or DC Plan, Patient Education ? Info or Referral Information or Referral to Community Resources: Lodging and/or Group Home(Sw compl eted [facility] referral for 2018) ? Discharge Planning ? Medication Needs ? Financial ? Legal ? Other Disposition ? Expected Discharge Date Expected Discharge Date: 06/11/19 Expected Discharge Time: 1108 ? Transportation Does the patient need discharge transport arranged?: No Transportation Name, Phone and Availability #1: Cristal P: Transportation Name, Phone and Availability #2: [email or web address] P : Does the patient use Medicaid Transportation?: No ? Next Level of Care (Acute Psych discharges only) ? Discharge Disposition Durable Medical Equipment No service has been selected for the patient. [facility] Destination No service has been selected for [...] AM CDT Case Management Admission Assessment NAME:Refugio Tse :1959 AGE: 59 y.o. ADMISSION DATE: 06/05/2019 [...] continues to improve with self-care & ADL's TIRE BEADER MAKER & has no concerns for discharge at this time. *DC Transport: Pts spouse, Cristal P: *DME: KIRSTEN, *HH / HI: [facility] O: (pt not current) *SNF / IPR / LTACH: [facility] IPR (January & February 2019 for ~1 week) *Primary Insurance: [facility] *Secondary Insurance: N/A *Rx coverage: [facility] *No NCM needs identified at this time. NCM encouraged pt to reach out if any nee ds should change. Pt verbalized understanding. *NCM will continue to follow and assess for additional needs through discharge. Patient Address/Phone [address] [facility] [address] (home) Emergency Contact Extended Emergency Contact Information Primary Emergency Contact: hipolitonercristal Relation: Spouse Healthcare Directive Transportation Does the patient need discharge transport arranged?: No Transportation Name, Phone and Availability #1: Cristal P: Transportation Name, Phone and Availability #2: [id number] P : Does the patient use Medicaid Transportation?: No Expected Discharge Date Expected Discharge Date: 06/12/19 Living Situation Prior to Admission ? Living Arrangements Type of Residence: Home, independent Living Arrangements: Spouse/significant other(with Cristal) Bathroom Shower / Tub: Walk-in Shower, Tub/Shower [...] provides assistance or could if needed?: Cristal (has intermittent FMLA that started 03/17/19) Are [...] Financial Resources ? Coverage Primary Insurance: Commercial insurance([facility] / R) Secondary Insurance: No insurance Additional Coverage: [facility] [place]. Pt states he has no conc erns [...] ? PCP Bertin Cole, , ? Pharmacy [facility] #[id number] - [place], [place] - [address] [facility] [address] [facility] [address] [facility] [id number] [facility] [id number] ? Durable Medical Equipment Durable Medical Equipment at home: Roller Walker, Single Point Cane ? Home Health Receiving home health: In the past Agency name: [facility] (not current) Would patient use this agency again?: Yes ? Hemodialysis or Peritoneal Dialysis Undergoing hemodialysis or peritoneal dialysis: No ? Tube/Enteral Feeds Receive tube/enteral feeds: No ? Infusion Receive infusions: No ? Private Duty Private duty help used: No ? Home and Community Based Services Home and community based services: No ? Danny Minor: N/A ? Hospice Hospice: No ? Outpatient Therapy PT: No OT: No FLOODPLAIN MANAGER: No ? Fci Facility/[facility] SNF: No NH: No ? Inpatient Rehab IPR: In the past When did patient receive care?: January & February 2019 for 1 week Name of Facility: [facility] Would patient return for future services?: Yes ? Long-Term Acute Care Hospital LTACH: No ? Acute Hospital Stay Acute Hospital Stay: Yes Was patient's stay within the last 30 days?: Yes Name of Hospital: [facility] When did patient receive care?: 05/20/19 - 05/26/19 Readmission Code Group: 8. Scheduled Readmission 8. Scheduled Readmission: 8a. Oncology Miriam Tolliver RN, BSN Nurse Loom Setter FourdrinierBuffet Runner / Surgical Non-Transplant Pager: * Advanced Care [...] spent a total of 16 minutes in [id number] discussion of pa tient condition, prognosis, treatment [...] Type Problems ed? GOAL General No Carmelina Jeffery RN Note: Back to work GOAL General [...] [facility]U MAIN LAB Specimen Performing Organization Address [facility] Ph one Number MAIN LAB [address] [place] [address] * METHOTREXATE (06/11/2019 5:59 AM CDT) Methotrexate 0.06 MCMOL/L KU MAIN LAB Specimen Blood Performing Organization Address [facility] Ph one Number MAIN LAB [address] [place] [address] * LDH-LACTATE DEHYDROGENASE (06/11/2019 5:59 AM CDT) Lactate 220 (H) 100 - 210 U/L MAIN LAB Dehydrogenase Specimen Blood Performing Organization Address [facility] Ph one Number MAIN LAB [address] [place] [address] * URIC ACID (06/11/2019 5:59 AM CDT) Uric Acid 4.2 4.0 - 8.0 MG/DL KU MAIN LAB Specimen Blood Performing Organization Address [facility] Ph one Number KU MAIN LAB [address] [place] [address] * PHOSPHORUS CELLULAR THERAPEUTICS (06/11/2019 5:59 AM CDT) Phosphorus 3.9Comment: NOTE NEW REFERENCE 2.0 - 4.5 MG/DL KU MAIN LAB RANGES Specimen Blood Performing Organization Address [facility] Ph one Number KU MAIN LAB [address] [place] [address] * MAGNESIUM CELLULAR THERAPEUTICS (06/11/2019 5:59 AM CDT) Magnesium 1.8 1.6 - 2.6 mg/dL KU MAIN LAB Specimen Blood Performing Organization Address [facility] one Number KU MAIN LAB [address] [place] [address] * COMPREHENSIVE METABOLIC PANEL CELLULAR THERAPEUTICS (06/11/2019 [...] >60 >60 mL/min KU MAIN LAB Comment: Gambian The eGFR is not validated f or use in drug dosing adjustments. Continue to use estimated creatinine clearance per dosing reference text. Please contact the Clinical Pharmacist for questions. eGFR >60 >60 mL/min KU MAIN LAB Gambian Comment: The eGFR is not validated for use in drug dosing adjustments. Continue to use estimated creatinine clearance per dosing reference text. Please contact the Clinical Pharmacist for questions. Specimen Blood Performing Organization Address [facility] Ph one Number KU MAIN LAB [address] [place] [address] * CBC AND DIFF CELLULAR THERAPEUTICS (06/11/2019 [...] Basophil Count Specimen Blood Performing Organization Address City/[facility] Ph one Number [facility] MAIN LAB [address] [place] [address] * POC GLUCOSE (06/10/2019 10:12 PM CDT) Glucose, POC 231 (H) 70 - 100 MG/DL KU MAIN LAB Specimen Performing Organization Address [facility] Ph one Number MAIN LAB [address] [place] [address] * POC GLUCOSE (06/10/2019 5:08 PM CDT) Glucose, POC 196 (H) 70 - 100 MG/DL KU MAIN LAB Specimen Performing Organization Address [facility] one Number MAIN LAB [address] [place] [address] * PV GROIN DUPLEX SCAN RT ONLY (06/10/2019 3:10 PM CDT) RIGHT GROIN MOTORCYCLE BUILDER 1.75 m/s OTHER OUTSIDE SYS LAB RIGHT [...] in visualize d veins Performing Organization Address [facility] one Number OTHER OUTSIDE LAB * POC GLUCOSE (06/10/2019 10:37 AM CDT) Glucose, POC 119 (H) 70 - 100 MG/DL KU MAIN LAB Specimen Performing Organization Address [facility] Ph one Number MAIN LAB [address] [place] [address] * POC GLUCOSE (06/10/2019 8:59 AM CDT) Glucose, POC 101 (H) 70 - 100 MG/DL MAIN LAB Specimen Performing Organization Address [facility] Ph one Number MAIN LAB [address] [place] [address] * PV SONO GUID CENT (06/10/2019 8:57 AM CDT) Mandi Mustafa OTHER OUTSIDE Provider LAB Cardiology Isabella [...] reviewed the study an d agree with hide house supervisor interpretation. Performing Organization Address City/State/Zipcode Ph one Number OTHER OUTSIDE LAB * CARDIAC CATH REPORT (06/10/2019 8:46 AM CDT) Procedure Note Terry Mustafa MD - 06/10/2019 8:46 AM CDT [facility] CARDIAC CATHETERIZATION REPORT Page 1 REFUGIO Montgomery : 1960 #: [id number] KU MR #/Billing ID #: [id number] / [id number] DATE: 06/10/2019 PIZZA DELIVERY DRIVER: Terry Mustafa MD DICTATING PROVIDER: Terry Mustafa MD REFERRING PHYSICIAN: PROCEDURES PERFORMED: Ultrasound guided pseudoaneurysm thrombin injection. PROCEDURE: Mr. Tse is a 59-year-old male with a recent procedure, who was found to have a large pseudoaneurysm of the right common femoral artery. It was elected to go ahead and proceed with thrombin injection for closure as opposed to surgical ligation. The risks and benefits were discussed and we went ahead and proceeded. Mr. Tse was brought to the cardiac catheterization lab [...] bedrest for 4 hours. MD JOÃO Cheney/Natasha /[id number] cc: Performing Organization Address [facility] one Number OTHER OUTSIDE LAB * METHOTREXATE (06/10/2019 3:20 AM CDT) Methotrexate 0.14 MCMOL/L KU MAIN LAB Specimen Blood Performing Organization Address [facility] one Number KU MAIN LAB [address] [place] [address] * LDH-LACTATE DEHYDROGENASE (06/10/2019 3:20 AM CDT) Lactate 272 (H) 100 - 210 U/L KU MAIN LAB Dehydrogenase Specimen Blood Performing Organization Address [facility] one Number MAIN LAB [address] [place] [address] * URIC ACID (06/10/2019 3:20 AM CDT) Uric Acid 4.4 4.0 - 8.0 MG/DL KU MAIN LAB Specimen Blood Performing Organization Address [facility] one Number MAIN LAB [address] [place] [address] * PHOSPHORUS CELLULAR THERAPEUTICS (06/10/2019 3:20 AM CDT) Phosphorus 3.8Comment: NOTE NEW REFERENCE 2.0 - 4.5 MG/DL KU MAIN LAB RANGES Specimen Blood Performing Organization Address [facility] one Number MAIN LAB [address] [place] [address] * MAGNESIUM CELLULAR THERAPEUTICS (06/10/2019 3:20 AM CDT) Magnesium 1.9 1.6 - 2.6 mg/dL KU MAIN LAB Specimen Blood Performing Organization Address [facility] one Number KU MAIN LAB [address] [place] [address] * COMPREHENSIVE METABOLIC PANEL CELLULAR THERAPEUTICS (06/10/2019 [...] >60 >60 mL/min KU MAIN LAB Comment: Gambian The eGFR is not validated f or use in drug dosing adjustments. Continue to use estimated creatinine clearance per dosing reference text. Please contact the Clinical Pharmacist for questions. eGFR >60 >60 mL/min KU MAIN LAB Gambian Comment: The eGFR is not validated for use in drug dosing adjustments. Continue to use estimated creatinine clearance per dosing reference text. Please contact the Clinical Pharmacist for questions. Specimen Blood Performing Organization Address City/State/Zipcode Ph one Number MAIN LAB [address] [place] [address] * CBC AND DIFF CELLULAR THERAPEUTICS (06/10/2019 [...] Basophil Count Specimen Blood Performing Organization Address City/[facility] Ph [facility] Number MAIN LAB [address] [place] [address] * POC GLUCOSE (06/09/2019 10:18 PM CDT) Glucose, POC 167 (H) 70 - 100 MG/DL KU MAIN LAB Specimen Performing Organization Address [facility] Ph one Number MAIN LAB [address] [place] [address] * CULTURE-URINE W/SENSITIVITY (06/09/2019 8:03 PM CDT) Battery Name URINE CULTURE KU MAIN LAB Specimen URINE MAIN LAB Description [...] organisms/ml klebsiella pneumoniae complex Performing Organization Address [facility] Ph one Number MAIN LAB [address] [place] [address] * UA REFLEX CULTURE LABEL (06/09/2019 8:03 PM CDT) UA Reflex Criteria for reflex to culture KU TANVI N LAB Culture are WBC>10, Positive Nitrit e, and/or >=+1 leukocytes. If quantity is not sufficient, an addendum will follow. Specimen Urine Performing Organization Address [facility] Ph one Number MAIN LAB [address] [place] [address] * URINALYSIS MICROSCOPIC REFLEX TO CULTURE (06/09/2019 8:03 PM CDT) WBCs,UA PACKED 0 - 2 /HPF KU MAIN LAB RBCs,UA 0-2 0 - 3 /HPF KU MAIN LAB Comment,UA Criteria for reflex to culture KU TANVI N LAB are WBC>10, Positive Nitrite, and/or >=+1 leukocytes. If quantity is not sufficient, an addendum will follow. Bacteria,UA MANY (A) NEG-NEG KU MAIN LAB Specimen Urine Performing Organization Address [facility] Ph one Number MAIN LAB [address] [place] [address] * URINALYSIS DIPSTICK REFLEX TO CULTURE (06/09/2019 8:03 PM CDT) Color,UA YELLOW KU MAIN LAB Turbidity,UA CLEAR CLEAR-CLEAR KU MAIN LAB Specific 1.006 1.003 - 1.035 KU MAIN LAB Kimper-Urine pH,UA 8.0 5.0 - 8.0 KU MAIN [...] Acid, UA Specimen Urine Performing Organization Address City/[facility] Ph one Number KU MAIN LAB [address] [place] [address] * POC GLUCOSE (06/09/2019 5:30 PM CDT) Glucose, POC 197 (H) 70 - 100 MG/DL KU MAIN LAB Specimen Performing Organization Address [facility] Ph one Number KU MAIN LAB [address] [place] [address] * US DOPPLER VENOUS W EXTRM RIGHT [...] on 06/09/2019 2:16 PM. Performing Organization Address City/[facility] Ph one Number RAD RESULTS * POC GLUCOSE (06/09/2019 12:20 PM CDT) Glucose, POC 174 (H) 70 - 100 MG/DL MAIN LAB Specimen Performing Organization Address [facility] Ph one Number MAIN LAB [address] [place] [address] * POC GLUCOSE (06/09/2019 7:58 AM CDT) Glucose, POC 183 (H) 70 - 100 MG/DL MAIN LAB Specimen Performing Organization Address [facility] Ph one Number MAIN LAB [address] [place] [address] * METHOTREXATE (06/09/2019 4:45 AM CDT) Methotrexate 0.64 MCMOL/L MAIN LAB Specimen Blood Performing Organization Address [facility] [facility] Ph one Number MAIN LAB [address] [place] [address] * LDH-LACTATE DEHYDROGENASE (06/09/2019 4:45 AM CDT) Lactate 285 (H) 100 - 210 U/L KU MAIN LAB Dehydrogenase Specimen Blood Performing Organization Address [facility] one Number KU MAIN LAB [address] [place] [address] * URIC ACID (06/09/2019 4:45 AM CDT) Uric Acid 4.5 4.0 - 8.0 MG/DL K[facility] MAIN LAB Specimen Blood Performing Organization Address [facility] one Number KU MAIN LAB [address] [place] [address] * PHOSPHORUS CELLULAR THERAPEUTICS (06/09/2019 4:45 AM CDT) Phosphorus 3.5Comment: NOTE NEW REFERENCE 2.0 - 4.5 MG/DL K[facility] MAIN LAB RANGES Specimen Blood Performing Organization Address [facility] one Number KU MAIN LAB [address] [place] [address] * MAGNESIUM CELLULAR THERAPEUTICS (06/09/2019 4:45 AM CDT) Magnesium 2.1 1.6 - 2.6 mg/dL K[facility] MAIN LAB Specimen Blood Performing Organization Address [facility] one Number [facility]U MAIN LAB [address] [place] [address] * COMPREHENSIVE METABOLIC PANEL CELLULAR THERAPEUTICS (06/09/2019 [...] >60 >60 mL/min [facility] MAIN LAB Comment: [place] The eGFR is not validated f or use in drug dosing adjustments. Continue to use estimated creatinine clearance per dosing reference text. Please contact the Clinical Pharmacist for questions. eGFR >60 >60 mL/min [facility] MAIN LAB [place]ian Comment: The eGFR is not validated for use in drug dosing adjustments. Continue to use estimated creatinine clearance per dosing reference text. Please contact the Clinical Pharmacist for questions. Specimen Blood Performing Organization Address City/State/Zipcode Ph one Number KU MAIN LAB [address] [place] [address] * CBC AND DIFF CELLULAR THERAPEUTICS (06/09/2019 [...] Lymphocytes 10 (L) 24 - 44 % [facility] MAIN LAB Monocytes 8 4 - 12 % [facility] MAIN LAB Eosinophils 0 0 - 5 % [facility] MAIN LAB Basophils 0 0 - 2 % [facility] MAIN LAB Absolute 3.50 1.8 - 7.0 K/UL K[facility] MAIN LAB Neutrophil Count Absolute Lymph 0.40 (L) 1.0 - 4.8 K/UL [facility] MAIN LAB Count Absolute 0.30 0 - 0.80 K/UL [facility] MAIN LAB Monocyte Count Absolute 0.00 0 - 0.45 K/UL [facility] MAIN LAB Eosinophil Count Absolute 0.00 0 - 0.20 K/UL [facility] MAIN LAB Basophil Count Specimen Blood Performing Organization Address [facility] Ph [facility] Number MAIN LAB [address] [place] [address] * POC GLUCOSE (06/08/2019 9:58 PM CDT) Glucose, POC 246 (H) 70 - 100 MG/DL [facility] MAIN LAB Specimen Performing Organization Address [facility] Ph [facility] Number MAIN LAB [address] [place] [address] * VRE SCREEN (06/08/2019 9:13 PM CDT) Battery Name VRE SCREEN KU MAIN LAB Specimen PERIRECTAL SWAB MAIN LAB Description Special NONE [facility] MAIN LAB Requests Culture NO VRE ISOLATED MAIN LAB Report Status FINAL MAIN LAB 06/10/2019 Specimen Perirectal Swab Performing Organization Address [facility] Ph one Number MAIN LAB [address] [place] [address] * POC GLUCOSE (06/08/2019 6:41 PM CDT) Glucose, POC 166 (H) 70 - 100 MG/DL MAIN LAB Specimen Performing Organization Address [facility] LAB [address] [place] [address] * MAGNESIUM (06/08/2019 5:00 PM CDT) Magnesium 1.8 1.6 - 2.6 mg/dL MAIN LAB Specimen Blood Performing Organization Address [facility] Ph [facility] Number MAIN LAB [address] [place] [address] * BASIC METABOLIC PANEL (06/08/2019 5:00 PM CDT) Sodium 132 (L) 137 - 147 MMOL/L MAIN LAB Potassium 3.6 3.5 - 5.1 MMOL/L MAIN LAB Chloride 91 (L) 98 - 110 MMOL/L [facility] MAIN LAB CO2 28 21 - 30 MMOL/L [facility] MAIN LAB Anion Gap 13 (H) 3 - 12 [facility] MAIN LAB Glucose 416 (H) 70 - 100 MG/DL [facility] MAIN LAB Blood Urea 10 7 - 25 MG/DL [facility] MAIN LAB Nitrogen Creatinine 0.43 0.4 - 1.24 MG/DL K[facility] MAIN LAB Calcium 7.8 (L) 8.5 - 10.6 MG/DL MAIN LAB eGFR Non >60 >60 mL/min MAIN LAB Comment: [place]ian The eGFR is not validated f or use in drug dosing adjustments. Continue to use estimated creatinine clearance per dosing reference text. Please contact the Clinical Pharmacist for questions. eGFR >60 >60 mL/min [facility] MAIN LAB [place]ian Comment: The eGFR is not validated for use in drug dosing adjustments. Continue to use estimated creatinine clearance per dosing reference text. Please contact the Clinical Pharmacist for questions. Specimen Blood Performing Organization Address [facility] Ph one Number MAIN LAB [address] [place] [address] * METHOTREXATE (06/08/2019 5:00 PM CDT) Pathologist [facility] Methotrexate 3.52 MCMOL/L MAIN LAB Specimen Blood Performing Organization Address [facility] Ph one Number MAIN LAB [address] [place] [address] * POC GLUCOSE (06/08/2019 11:55 AM CDT) [facility] Glucose, POC 355 (H) 70 - 100 MG/DL MAIN LAB Specimen Performing Organization Address [facility] one Number MAIN LAB [address] [place] [address] * 2-D + DOPPLER ECHOCARDIOGRAM (06/08/2019 10:17 AM CDT) [facility] IVS 1.10 0.6 - 1.0 cm [...] OUTSIDE LAB AV index 0.80 OTHER OUTSIDE (kiana) LAB E/A ratio 0.61 OTHER OUTSIDE LAB Lateral E/E' 6.92 OTHER OUTSIDE ratio LAB Left Ventricle 128.59 49 - 115 g/m2 OTHER OUTSIDE Mass Index LAB CV ECHO PV DENNY Carrillo OTHER OUTSIDE [employer] LAB Ao root annulus 2.4 2.0 - 3.2 cm OTHER OUTSIDE LAB STJ 3.7 2.3 - 3.5 cm OTHER OUTSIDE LAB Proximal aorta 4.1 2.6 - 3.8 cm OTHER OUTSIDE LAB Ascending aorta 3.9 cm OTHER OUTSIDE LAB Aortic arch 4.1 cm OTHER OUTSIDE LAB TV rest 30 mmHg OTHER OUTSIDE pulmonary LAB artery pressure Cardiology Siemens [id number] OTHER OUTSIDE Ultrasound LAB Machine ECHO EF 30 % OTHER OUTSIDE LAB Specimen Narrative Performed At OTHER OUTSIDE LAB Left atrium is mildly dilated. Reduced left ventricular systolic fu nction with EF = 30% and normal diastolic function. There is apical and anterior akinesi s consistent with prior [place]. RV appears of normal size and functi on. No significant valvular regurgitatio n or stenosis by doppler. Estimated pulmonary artery systolic pressure is 30 mmHg. In comparison to prior study dated , wall motion abnormalities are similar. EF likely similar compar ed side by side but was reportedly higher 50-55% at that time. Performing Organization Address City/State/Zipcode Ph one Number OTHER OUTSIDE LAB * POC GLUCOSE (06/08/2019 8:15 AM CDT) Glucose, POC 245 (H) 70 - 100 MG/DL [facility] MAIN LAB Specimen Performing Organization Address [facility] Ph one Number KU MAIN LAB [address] [place] [address] * LDH-LACTATE DEHYDROGENASE (06/08/2019 5:54 AM CDT) Lactate 286 (H) 100 - 210 U/L [facility] MAIN LAB Dehydrogenase Specimen Blood Performing Organization Address [facility] one Number [facility]U MAIN LAB [address] [place] [address] * URIC ACID (06/08/2019 5:54 AM CDT) Uric Acid 4.1 4.0 - 8.0 MG/DL K[facility] MAIN LAB Specimen Blood Performing Organization Address [facility] one Number MAIN LAB [address] [place] [id number] * PHOSPHORUS CELLULAR THERAPEUTICS (06/08/2019 5:54 AM CDT) Phosphorus 3.3Comment: NOTE NEW REFERENCE 2.0 - 4.5 MG/DL KU MAIN LAB RANGES Specimen Blood Performing Organization Address [facility] one Number MAIN LAB [address] [place] [id number] * MAGNESIUM CELLULAR THERAPEUTICS (06/08/2019 5:54 AM CDT) Magnesium 1.9 1.6 - 2.6 mg/dL K[facility] MAIN LAB Specimen Blood Performing Organization Address [facility] one Number MAIN LAB [address] [place] [address] * COMPREHENSIVE METABOLIC PANEL CELLULAR THERAPEUTICS (06/08/2019 [...] >60 >60 mL/min [facility] MAIN LAB Comment: [place] The eGFR is not validated f or use in drug dosing adjustments. Continue to use estimated creatinine clearance per dosing reference text. Please contact the Clinical Pharmacist for questions. eGFR >60 >60 mL/min [facility] MAIN LAB [place]ian Comment: The eGFR is not validated for use in drug dosing adjustments. Continue to use estimated creatinine clearance per dosing reference text. Please contact the Clinical Pharmacist for questions. Specimen Blood Performing Organization Address City/State/Zipcode Ph one Number [facility]U MAIN LAB [address] [place] [address] * CBC AND DIFF CELLULAR THERAPEUTICS (06/08/2019 5:54 AM CDT) White Blood 3.5 (L) 4.5 - 11.0 [...] RDW 21.2 (H) 11 - 15 % [facility] MAIN LAB Platelet Count 384 150 - 400 K/UL [facility] MAIN LAB MPV 6.4 (L) 7 - 11 FL [facility] MAIN LAB Neutrophils 82 (H) 41 - 77 % [facility] MAIN LAB Lymphocytes 11 (L) 24 - 44 % [facility] MAIN LAB Monocytes 6 4 - 12 % [facility] MAIN LAB Eosinophils 0 0 - 5 % [facility] MAIN LAB Basophils 1 0 - 2 % [facility] MAIN LAB Absolute 2.90 1.8 - 7.0 K/UL [facility] MAIN LAB Neutrophil Count Absolute Lymph 0.40 (L) 1.0 - 4.8 K/UL [facility] MAIN LAB Count Absolute 0.20 0 - 0.80 K/UL MAIN LAB Monocyte Count Absolute 0.00 0 - 0.45 K/UL MAIN LAB Eosinophil Count Absolute 0.00 0 - 0.20 K/UL MAIN LAB Basophil Count Specimen Blood Performing Organization Address [facility] Ph one Number MAIN LAB [address] [place] [address] * POC GLUCOSE (06/08/2019 4:26 AM CDT) Glucose, POC 285 (H) 70 - 100 MG/DL [facility] MAIN LAB Specimen Performing Organization Address [facility] Ph one Number MAIN LAB [address] [place] [address] * POC GLUCOSE (06/08/2019 1:43 AM CDT) Glucose, POC 322 (H) 70 - 100 MG/DL MAIN LAB Specimen Performing Organization Address [facility] Ph one Number MAIN LAB [address] [place] [address] * POC GLUCOSE (06/07/2019 11:08 PM CDT) Glucose, POC 374 (H) 70 - 100 MG/DL MAIN LAB Specimen Performing Organization Address [facility] Ph one Number MAIN LAB [address] [place] [address] * POC GLUCOSE (06/07/2019 6:05 PM CDT) Glucose, POC 205 (H) 70 - 100 MG/DL MAIN LAB Specimen Performing Organization Address [facility] Ph one Number MAIN LAB [address] [place] [address] * MAGNESIUM (06/07/2019 12:09 PM CDT) Magnesium 1.7 1.6 - 2.6 mg/dL MAIN LAB Specimen Blood Performing Organization Address [facility] Ph one Number MAIN LAB [address] [place] [address] * BASIC METABOLIC PANEL (06/07/2019 12:09 PM CDT) Sodium 137 137 - 147 MMOL/L MAIN LAB Potassium 3.9 3.5 - 5.1 MMOL/L MAIN LAB Chloride 102 98 - 110 MMOL/L [facility] MAIN LAB CO2 30 21 - 30 MMOL/L [facility] MAIN LAB Anion Gap 5 3 - 12 MAIN LAB Glucose 189 (H) 70 - 100 MG/DL MAIN LAB Blood Urea 7 7 - 25 MG/DL MAIN LAB Nitrogen Creatinine 0.44 0.4 - 1.24 MG/DL MAIN LAB Calcium 8.2 (L) 8.5 - 10.6 MG/DL MAIN LAB eGFR Non >60 >60 mL/min MAIN LAB Comment: [place] The eGFR is not validated f or use in drug dosing adjustments. Continue to use estimated creatinine clearance per dosing reference text. Please contact the Clinical Pharmacist for questions. eGFR >60 >60 mL/min MAIN LAB [place]ian Comment: The eGFR is not validated for use in drug dosing adjustments. Continue to use estimated creatinine clearance per dosing reference text. Please contact the Clinical Pharmacist for questions. Specimen Blood Performing Organization Address [facility] one Number MAIN LAB [address] [place] [address] * POC GLUCOSE (06/07/2019 11:15 AM CDT) Glucose, POC 223 (H) 70 - 100 MG/DL MAIN LAB Specimen Performing Organization Address [facility] one Number MAIN LAB [address] [place] [id number] * POC GLUCOSE (06/07/2019 7:58 AM CDT) Glucose, POC 117 (H) 70 - 100 MG/DL MAIN LAB Specimen Performing Organization Address [facility] one Number MAIN LAB [address] [place] [address] * LDH-LACTATE DEHYDROGENASE (06/07/2019 2:00 AM CDT) Lactate 247 (H) 100 - 210 U/L MAIN LAB Dehydrogenase Specimen Blood Performing Organization Address [facility] one Number MAIN LAB [address] [place] [id number] * URIC ACID (06/07/2019 2:00 AM CDT) Uric Acid 4.0 4.0 - 8.0 MG/DL MAIN LAB Specimen Blood Performing Organization Address [facility]/Zipcode Ph one Number KU MAIN LAB [address] [place] [address] * PHOSPHORUS CELLULAR THERAPEUTICS (06/07/2019 2:00 AM CDT) Phosphorus 3.5Comment: NOTE NEW REFERENCE 2.0 - 4.5 MG/DL KU MAIN LAB RANGES Specimen Blood Performing Organization Address [facility] Ph one Number KU MAIN LAB [address] [place] [address] * MAGNESIUM CELLULAR THERAPEUTICS (06/07/2019 2:00 AM CDT) Magnesium 1.7 1.6 - 2.6 mg/dL K[facility] MAIN LAB Specimen Blood Performing Organization Address [facility] Ph one Number K[facility] MAIN LAB [address] [place] [address] * COMPREHENSIVE METABOLIC PANEL CELLULAR THERAPEUTICS (06/07/2019 [...] >60 >60 mL/min [facility] MAIN LAB Comment: [place] The eGFR is not validated f or use in drug dosing adjustments. Continue to use estimated creatinine clearance per dosing reference text. Please contact the Clinical Pharmacist for questions. eGFR >60 >60 mL/min K[facility] MAIN LAB [place]ian Comment: The eGFR is not validated for use in drug dosing adjustments. Continue to use estimated creatinine clearance per dosing reference text. Please contact the Clinical Pharmacist for questions. Specimen Blood Performing Organization Address [facility] one Number [facility] MAIN LAB [address] [place] [address] * CBC AND DIFF CELLULAR THERAPEUTICS (06/07/2019 2:00 AM CDT) White Blood 4.5 4.5 - 11.0 K/UL KU MAIN LAB Cells RBC 2.82 (L) 4.4 - 5.5 M/UL KU MAIN LAB Hemoglobin 8.8 (L) 13.5 - 16.5 GM/DL KU MAIN LAB Hematocrit 25.9 (L) 40 - 50 % KU MAIN LAB MCV 91.5 80 - 100 FL KU MAIN LAB MCH 31.1 26 - 34 PG KU MAIN LAB MCHC 34.0 32.0 - 36.0 G/DL KU MAIN LAB RDW 22.4 (H) 11 - 15 % KU MAIN LAB Platelet Count 320 150 - 400 K/UL K[facility] MAIN LAB MPV 6.9 (L) 7 - 11 FL KU MAIN LAB Nucleated RBCs 2 K/UL KU MAIN LAB Segmented 35 (L) 41 - 77 % [facility] MAIN LAB Neutrophils Bands 26 (H) 0 - 10 % [facility] MAIN LAB Lymphocytes 16 (L) 24 - 44 % K[facility] MAIN LAB Monocytes 17 (H) 4 - 12 % K[facility] MAIN LAB Eosinophil 6 (H) 0 - 5 % K[facility] MAIN LAB ANISO PRESENT KU MAIN LAB POIK PRESENT KU MAIN LAB Platelet NORMAL KU MAIN LAB Estimate Absolute 2.75 1.8 - 7.0 K/UL KU MAIN LAB Neutrophil Count Manual Specimen Blood Performing Organization Address [facility] one Number KU MAIN LAB [address] [place] [address] * POC GLUCOSE (06/06/2019 10:23 PM CDT) Glucose, POC 114 (H) 70 - 100 MG/DL K[facility] MAIN LAB Specimen Performing Organization Address [facility] one Number KU MAIN LAB [address] [place] [id number] * BASIC METABOLIC PANEL (06/06/2019 6:25 PM CDT) Sodium 137 137 - 147 MMOL/L KU MAIN LAB Potassium 3.8 3.5 - 5.1 MMOL/L K[facility] MAIN LAB Chloride 103 98 - 110 MMOL/L KU MAIN LAB CO2 27 21 - 30 MMOL/L KU MAIN LAB Anion Gap 7 3 - 12 MAIN LAB Glucose 136 (H) 70 - 100 MG/DL MAIN LAB Blood Urea 7 7 - 25 MG/DL KU MAIN LAB Nitrogen Creatinine 0.50 0.4 - 1.24 MG/DL KU MAIN LAB Calcium 8.5 8.5 - 10.6 MG/DL MAIN LAB eGFR Non >60 >60 mL/min MAIN LAB Comment: [place] The eGFR is not validated f or use in drug dosing adjustments. Continue to use estimated creatinine clearance per dosing reference text. Please contact the Clinical Pharmacist for questions. eGFR >60 >60 mL/min MAIN LAB [place]ian Comment: The eGFR is not validated for use in drug dosing adjustments. Continue to use estimated creatinine clearance per dosing reference text. Please contact the Clinical Pharmacist for questions. Specimen Blood Performing Organization Address City/[facility] Ph one Number [facility] [address] [place] [address] * POC GLUCOSE (06/06/2019 3:07 PM CDT) Glucose, POC 140 (H) 70 - 100 MG/DL [facility] LAB Specimen Performing Organization Address [facility] one Number [facility] [address] [place] [address] * CHEST 2 VIEWS (06/06/2019 10:59 AM [...] on 06/06/2019 11:00 AM. Performing Organization Address [facility] Ph one Number KU RAD RESULTS * TYPE & CROSSMATCH (06/06/2019 4:40 AM CDT) Units Ordered 1 KU MAIN LAB Crossmatch 06/09/2019 KU MAIN LAB Expires Record Check FOUND KU MAIN LAB ABO/RH(D) A POS KU MAIN LAB Antibody Screen NEG K[facility] MAIN LAB Electronic YES KU MAIN LAB Crossmatch Unit Number [id number] KU MAIN LAB Blood Component RBC,ADSOL,LEUKO [facility] MAIN LAB Type REDUCED,IRRADIATED Unit Division 0 KU MAIN LAB Status OF Unit TRANSFUSED KU MAIN LAB Transfusion OK TO TRANSFUSE KU MAIN LAB Status Crossmatch COMPATIBLE,ELECTRONIC [facility] MAIN LAB Result Specimen Blood Performing Organization Address City/[facility]/Zipcode Ph one Number KU MAIN LAB [address] [place] [address] * LDH-LACTATE DEHYDROGENASE (06/06/2019 2:14 AM CDT) Lactate 250 (H) 100 - 210 U/L KU MAIN LAB Dehydrogenase Specimen Blood Performing Organization Address [facility] one Number [facility] MAIN LAB [address] [place] [address] * URIC ACID (06/06/2019 2:14 AM CDT) Uric Acid 3.6 (L) 4.0 - 8.0 MG/DL [facility] MAIN LAB Specimen Blood Performing Organization Address [facility] one Number MAIN LAB [address] [place] [address] * PHOSPHORUS CELLULAR THERAPEUTICS (06/06/2019 2:14 AM CDT) Phosphorus 3.2Comment: NOTE NEW REFERENCE 2.0 - 4.5 MG/DL KU MAIN LAB RANGES Specimen Blood Performing Organization Address [facility] one Number MAIN LAB [address] [place] [address] * MAGNESIUM CELLULAR THERAPEUTICS (06/06/2019 2:14 AM CDT) Magnesium 1.6 1.6 - 2.6 mg/dL K[facility] MAIN LAB Specimen Blood Performing Organization Address [facility] one Number [facility] MAIN LAB [address] [place] [address] * COMPREHENSIVE METABOLIC PANEL CELLULAR THERAPEUTICS (06/06/2019 2:14 AM CDT) Sodium 137 137 - 147 MMOL/L [facility] MAIN LAB Potassium 3.6 3.5 - 5.1 [...] >60 >60 mL/min KU MAIN LAB Comment: [place] The eGFR is not validated f or use in drug dosing adjustments. Continue to use estimated creatinine clearance per dosing reference text. Please contact the Clinical Pharmacist for questions. eGFR >60 >60 mL/min K[facility] MAIN LAB [place] Comment: The eGFR is not validated for use in drug dosing adjustments. Continue to use estimated creatinine clearance per dosing reference text. Please contact the Clinical Pharmacist for questions. Specimen Blood Performing Organization Address City/State/Zipcode Ph one Number [facility] MAIN LAB [address] [place] [address] * CBC AND DIFF CELLULAR THERAPEUTICS (06/06/2019 [...] Basophil Count Specimen Blood Performing Organization Address [facility] one Number MAIN LAB [address] [place] [address] * LDH-LACTATE DEHYDROGENASE (06/05/2019 5:30 PM CDT) Lactate 274 (H) 100 - 210 U/L K[facility] MAIN LAB Dehydrogenase Specimen Blood Performing Organization Address [facility] one Number MAIN LAB [address] [place] [address] * URIC ACID (06/05/2019 5:30 PM CDT) Uric Acid 3.5 (L) 4.0 - 8.0 MG/DL K[facility] MAIN LAB Specimen Blood Performing Organization Address [facility] one Number MAIN LAB [address] [place] [address] * PHOSPHORUS CELLULAR THERAPEUTICS (06/05/2019 5:30 PM CDT) Phosphorus 2.8Comment: NOTE NEW REFERENCE 2.0 - 4.5 MG/DL KU MAIN LAB RANGES Specimen Blood Performing Organization Address [facility] one Number MAIN LAB [address] [place] [address] * MAGNESIUM CELLULAR THERAPEUTICS (06/05/2019 5:30 PM CDT) Magnesium 1.6 1.6 - 2.6 mg/dL K[facility] MAIN LAB Specimen Blood Performing Organization Address [facility] one Number MAIN LAB [address] [place] [address] * COMPREHENSIVE METABOLIC PANEL CELLULAR THERAPEUTICS (06/05/2019 [...] >60 >60 mL/min KU MAIN LAB Comment: [place] The eGFR is not validated f or use in drug dosing adjustments. Continue to use estimated creatinine clearance per dosing reference text. Please contact the Clinical Pharmacist for questions. eGFR >60 >60 mL/min KU MAIN LAB [place] Comment: The eGFR is not validated for use in drug dosing adjustments. Continue to use estimated creatinine clearance per dosing reference text. Please contact the Clinical Pharmacist for questions. Specimen Blood Performing Organization Address City/State/Zipcode Ph one Number [facility]U MAIN LAB [address] [place] [address] * CBC AND DIFF CELLULAR THERAPEUTICS (06/05/2019 [...] LAB MCH 31.0 26 - 34 PG KU MAIN LAB MCHC 33.2 32.0 - 36.0 G/DL K[facility] MAIN LAB RDW 24.3 (H) 11 - 15 % K[facility] MAIN LAB Platelet Count 238 150 - 400 K/UL [facility] MAIN LAB MPV 6.9 (L) 7 - 11 FL K[facility] MAIN LAB Segmented 35 (L) 41 - 77 % KU MAIN LAB Neutrophils Bands 7 0 - 10 % KU MAIN LAB Lymphocytes 32 24 - 44 % K[facility] MAIN LAB Monocytes 20 (H) 4 - 12 % K[facility] MAIN LAB Eosinophil 6 (H) 0 - 5 % KU MAIN LAB POIK PRESENT KU MAIN LAB Ovalocyte PRESENT MAIN LAB Teardrop PRESENT MAIN LAB Platelet NORMAL MAIN LAB Estimate Absolute 0.89 (L) 1.8 - 7.0 K/UL MAIN LAB Neutrophil Count Manual Specimen Blood Performing Organization Address City/[facility] MA[facility] LAB [address] [place] [address] * VRE SCREEN (06/05/2019 5:18 PM CDT) Battery Name VRE SCREEN KU MAIN LAB Specimen PERIRECTAL SWAB MAIN LAB Description Special NONE KU MAIN LAB Requests Culture NO VRE ISOLATED [facility]U MAIN LAB Report Status FINAL MAIN LAB 06/07/2019 Specimen Perirectal Swab Performing Organization Address City/[facility] Ph one Number MAIN LAB [address] [place] [address] * TELEMETRY STRIPS-SCAN (06/05/2019 12:00 AM CDT) [...] documented in this encounter Visit Diagnoses Diagnosis 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 Admitting Diagnoses Diagnosis DLBCL (diffuse large B cell lymphoma) ( HCC) Other malignant lymphomas, unspecified site, extranodal and solid organ sites documented in this encounter Administered Medications Action Date Dose Rate Site Medication Order MAR Action 06/10/2019 6:15 PM CDT 650 mg acetaminophen (TYLENOL) tablet 650 mg Given 650 mg, Oral, EVERY 4 HOURS PRN, Starting 06/10/19 at 0846, Until Jennifer 06/11/19 at 1437, Pain non-opioid: may b e used alone or in combination with opioi d analgesia, TOTAL ACETAMINOPHEN DOSE NOT TO EXCEED 4GM DAILY, 06/11/2019 9:51 AM CDT 300 mg allopurinol (ZYLOPRIM) tablet 300 mg Given 300 mg, Oral, DAILY, First dose (after last modification) on Sat06/06/19 at 0900, Until Discontinued 300 mg Given 06/10/2019 10:02 AM CDT 300 mg Given 06/09/2019 8:25 AM CDT aluminum/magnesium hydroxide (MAALOX) oral suspension 30 mL 30 mL, Oral, EVERY 4 HOURS PRN, Starting Sat06/10/19 at 0846, Until Sat06/11/19 at 1437, Indigestion/Heartburn amiodarone (CORDARONE) tablet 200 mg 200 mg, [...] 2100, Last dose on 06/22/19 at 0900 06/11/2019 9:48 AM CDT 5 mg apixaban (ELIQUIS) tablet 5 mg Given 5 mg, Oral, TWICE DAILY, First dose on Sat06/11/19 at 0900, Until Discontinued , May crush 5 mg or 2.5 mg tablets and suspend in 60 mL of D5W followed by immediate delivery through a nasogastri c tube. No information regarding administration of suspension by mouth i s available. NOTE: This is a HIGH ALERT Medication., 06/11/2019 9:48 AM CDT 40 mg atorvastatin (LIPITOR) tablet 40 mg Given 40 mg, Oral, DAILY, First dose (after last modification) on Sat06/06/19 at 0900, Until Discontinued 40 mg Given 06/10/2019 10:02 AM CDT 40 mg Given 06/09/2019 8:25 AM CDT 06/11/2019 9:51 AM CDT 75 mg clopiDOGrel (PLAVIX) tablet 75 mg Given 75 mg, Oral, DAILY, First dose on Sat06/06/19 at 0900, Until Discontinued, This Medication can increase the risk o f bleeding and may need to be held prior to surgery or invasive procedures. Consult physician in advance., 75 mg Given 06/10/2019 10:03 AM CDT 75 mg Given 06/09/2019 8:25 AM CDT diphenhydrAMINE (BENADRYL) capsule 25 m g 25 mg, Oral, EVERY 4 HOURS PRN, Starting Sat06/10/19 at 0846, Until Sat06/11/19 at 1437, Rash diphenhydrAMINE (BENADRYL) injection 25 mg 25 mg, Intravenous, EVERY 4 HOURS PRN, Starting Sat06/10/19 at 0846, Until Sat06/11/19 at 1437, Rash 06/08/2019 5:14 PM CDT 1 patch Shoulder , Left fentaNYL (DURAGESIC) 25 mcg/hr patch 1 Patch/Topica patch l Applied 1 patch, Transdermal, Administer over 7 2 Hours, EVERY 72 HOURS, First dose on 06/05/19 at 1700, Until Discontinued 1 patch Back, Upper Right Patch/Topical Applied 06/05/2019 6:11 PM CDT 06/11/2019 9:48 AM CDT 40 mg furosemide [...] 0800, Until Discontinued, -POC glucose 181-220mg/dL at 07, 11, 17 administer 2 units insulin, at , 03* administer 0 units. -POC glucose 221-260mg/dL at administer 4 units insulin, at , * administer 2 units. -POC glucos e 261-300mg/dL at administer 6 units insulin, at , * administer 4 units. -POC glucose 301-350mg/dL at administer 8 units insulin, at , * administer 6 units. -POC glucos e 351-400mg/dL at administer 1 0 units insulin, at , * administer 8 units. -POC glucose >400mg/dL at administer 12 units insulin, at , * administer 10 units. *only if ordered 5x's [...] Arm, Right Given 06/09/2019 5:44 PM CDT 06/11/2019 9:49 AM CDT 25 mg losartan (COZAAR) tablet 25 mg Given 25 mg, Oral, DAILY, First dose on Sat06/09/19 at 1230, Until Discontinued 25 mg Given 06/10/2019 10:02 AM CDT 25 mg Given 06/09/2019 12:16 PM CDT 06/11/2019 9:47 AM CDT 150 mg metoprolol XL (TOPROL XL) tablet 150 mg Given 150 mg, Oral, DAILY, First dose on Jennifer 06/11/19 at 0900, Until Discontinued, Hold for heart rate < 60 bpm or systoli c BP < 90 tablets may be cut in half, DO NOT CRUSH or CHEW, 06/11/2019 12:15 PM CDT 100 mg nitrofurantoin monohyd/m-cryst Given (MACROBID) capsule 100 mg 100 mg, Oral, TWICE DAILY, First dose o n 06/10/19 at 2100, Until Discontinued 100 mg Given 06/10/2019 8:22 PM CDT ondansetron (ZOFRAN) injection 4 mg 4 mg, Intravenous, EVERY 6 HOURS PRN, Starting Sat06/10/19 at 0846, Until Jennifer 06/11/19 at 1437, Nausea/Vomiting Injectable 06/11/2019 9:57 AM CDT 10 mg oxyCODONE (ROXICODONE, OXY-IR) tablet Given 5-10 mg 5-10 mg, Oral, EVERY 3 HOURS PRN, Starting Sat06/05/19 at 1553, Until Jennifer 06/11/19 at 1437, Pain PO 10 mg Given 06/11/2019 1:54 AM CDT 10 mg Given 06/10/2019 8:21 PM CDT prochlorperazine maleate (COMPAZINE) tablet 10 mg 10 mg, Oral, EVERY 6 HOURS PRN, Starting Sat06/07/19 at 1200, Until Jennifer 06/11/19 at 1437, Nausea/Vomiting PO 06/11/2019 9:48 AM CDT 25 mg spironolactone (ALDACTONE) tablet 25 mg Given 25 mg, Oral, DAILY, First dose on Sat06/10/19 at 1030, Until Discontinued, NURSING: Please educate patient and document: Avoid using salt substitutes which have a high potassium content (Nu-Salt)., 25 mg Given 06/10/2019 10:03 AM CDT documented in this encounter
--- OUTSIDE RECORDS SUMMARY | 2019-12-07 05:10 | XMS REPORT | Continuity of Care Document ---
Author Organization Unknown Address Unknown Phone Unavailable Allergies Active Description Code Type Severity Reaction Onset Reported/Identified Relationship to Patient Clinical Status Yes No Known Drug Allergies [id number] Drug Allergy Unknown N/A 07/25/2015 Medications There is no data. Problems Date Dx Coded Attending Type Code Diagnosis Diagnosed By 07/27/2015 GELLENDER DO, HEBER Peacock Ot B19.20 07/27/2015 GELLENDER DO, HEBER Peacock Ot E66.9 07/27/2015 GELLENDER DO, HEBER Peacock Ot F17.200 07/27/2015 GELLENDER DO, HEBER Peacock Ot I10 07/27/2015 GELLENDER DO, HEBER Peacock Ot I21.4 07/27/2015 GELLENDER DO, HEBER Peacock Ot I25.10 07/27/2015 GELLENDER DO, HEBER Peacock Ot I25.5 07/27/2015 GELLENDER DO, HEBER Peacock Ot I50.21 07/27/2015 GELLENDER DO, HEBER Peacock Ot Z68.34 07/27/2015 GELLENDER DO, HEBER Peacock Ot B19.20 07/27/2015 GELLENDER DO, HEBER Peacock Ot E66.9 07/27/2015 GELLENDER DO, HEEBR Peacock Ot F17.200 07/27/2015 GELLENDER DO, HEBER Peacock Ot I10 07/27/2015 GELLENDER DO, HEBER Peacock Ot I21.4 07/27/2015 GELLENDER DO, HEBER Peacock Ot I25.10 07/27/2015 GELLENDER DO, HEBER Peacock Ot I25.5 07/27/2015 GELLENDER DO, HEBER Peacock Ot I50.21 07/27/2015 GELLENDER DO, HEBER Peacock Ot Z68.34 07/29/2015 GELLENDER DO, HEBER Peacock Ot B19.20 07/29/2015 GELLENDER DO, HEBER Peacock Ot E66.9 07/29/2015 GELLENDER DO, HEBER Peacock Ot F17.200 07/29/2015 GELLENDER DO, HEBER Peacock Ot I10 07/29/2015 GELLENDER DO, HEBER Peacock Ot I21.4 07/29/2015 GELLENDER DO, HEBER Peacock Ot I25.10 07/29/2015 GELLENDER DO, HEBER Peacock Ot I25.5 07/29/2015 GELLENDER DO, HEBER Peacock Ot I50.21 07/29/2015 GELLENDER DO, HEBER Peacock Ot Z68.34 07/29/2015 GELLENDER DO, HEBER Peacock Ot B19.20 UNSPECIFIED VIRAL HEPATITIS C WITHOUT HE 07/29/2015 GELLENDER DO, HEBER Peacock Ot E66.9 OBESITY, UNSPECIFIED 07/29/2015 GELLENDER DO, HEBER Peacock Ot F17.200 07/29/2015 GELLENDER DO, HEBER Peacock Ot F17.210 NICOTINE DEPENDENCE, CIGARETTES, UNCOMPL 07/29/2015 GELLENDER DO, HEBER Madonna Ot I10 ESSENTIAL (PRIMARY) HYPERTENSION 07/29/2015 GELLENDER DO, HEBER Peacock Ot I21.4 NON-ST ELEVATION (NSTEMI) MYOCARDIAL INF 07/29/2015 GELLENDER DO, HEBER Madonna Ot I25.10 ATHSCL HEART DISEASE OF [place] CORONARY 07/29/2015 GELLENDER DO, HEBER Peacock Ot I25.5 ISCHEMIC CARDIOMYOPATHY 07/29/2015 GELLENDER DO, HEBER Peacock Ot I50.21 ACUTE SYSTOLIC (CONGESTIVE) HEART FAILUR 07/29/2015 GELLENDER DO, HEBER Peacock Ot Z68.34 BODY MASS INDEX (BMI) 34.0-34.9, ADULT 07/29/2015 GELLENDER DO, HEBER Peacock Ot B19.20 07/29/2015 GELLENDER DO, HEBER Peacock Ot E66.9 07/29/2015 GELLENDER DO, HEBER Peacock Ot F17.200 07/29/2015 GELLENDER DO, HEBER Peacock Ot I10 07/29/2015 GELLENDER DO, HEBER Peacock Ot I21.4 07/29/2015 GELLENDER DO, HEBER Madonna Ot I25.10 07/29/2015 GELLENDER DO, HEBER Peacock Ot I25.5 07/29/2015 GELLENDER DO, HEBER Peacock Ot I50.21 07/29/2015 GELLENDER DO, HEBER Peacock Ot Z68.34 07/29/2015 GELLENDER DO, HEBER Peacock Ot B19.20 07/29/2015 GELLENDER DO, HEBER Peacock Ot E66.9 07/29/2015 GELLENDER DO, HEBER Madonna Ot F17.200 07/29/2015 GELLENDER DO, HEBER Madonna Ot I10 07/29/2015 GELLENDER DO, HEBER Madonna Ot I21.4 07/29/2015 GELLENDER DO, HEBER Madonna Ot I25.10 07/29/2015 GELLENDER DO, HEBER Madonna Ot I25.5 07/29/2015 GELLENDER DO, HEBER Peacock Ot I50.21 07/29/2015 GELLENDER DO, HEBER Madonna Ot Z68.34 05/18/2019 GELLENDER DO, HEBER Madonna Ot 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, LYMPH NODES 05/18/2019 GELLENDER DO, HEBER Peacock Ot D64.9 ANEMIA, UNSPECIFIED 05/18/2019 GELLENDER DO, HEBER Peacock Ot E87.2 ACIDOSIS 05/18/2019 GELLENDER DO, HEBER Peacock Ot I10 ESSENTIAL (PRIMARY) HYPERTENSION 05/18/2019 [facility] I21.4 NON-ST ELEVATION (NSTEMI) MYOCARDIAL INF 05/18/2019 [facility] HEBER Peacock Ot I25.10 ATHSCL HEART DISEASE OF [place] CORONARY 05/18/2019DER , HEBER Peacock Ot I25.2 OLD MYOCARDIAL INFARCTION 05/18/2019 [facility] Peacock Ot I25.5 ISCHEMIC CARDIOMYOPATHY 05/18/2019 [facility] HEBER Peacock Ot I26.99 OTHER PULMONARY EMBOLISM WITHOUT ACUTE C 05/18/2019 [facility], HEBER Peacock Ot I48.91 UNSPECIFIED ATRIAL FIBRILLATION 05/18/2019 GELLENDER DO, HEBER Peacock Ot I48.92 UNSPECIFIED ATRIAL FLUTTER 05/18/2019 GELLENDER DO, HEBER Peacock Ot I82.432 ACUTE EMBOLISM AND THROMBOSIS OF LEFT PO 05/18/2019 GELLENDER DO, HEBER Peacock Ot I82.492 ACUTE EMBOLISM AND THROMBOSIS OF DEEP VE 05/18/2019 GELLENDER DO, HEBER Peacock Ot M19.90 UNSPECIFIED OSTEOARTHRITIS, UNSPECIFIED 05/18/2019 GELLENDER DO, HEBER Peacock Ot R06.03 ACUTE RESPIRATORY DISTRESS 05/18/2019 GELLENDER DO, HEBER Peacock Ot R09.02 HYPOXEMIA 05/18/2019 GELLENDER DO, HEBER Peacock Ot R57.8 OTHER SHOCK 05/18/2019 GELLENDER DO, HEBER Peacock Ot T82.855A STENOSIS OF CORONARY ARTERY STENT, INITI 05/18/2019 TANHURLEY HEBER Peacock Ot Z87.891 PERSONAL HISTORY OF NICOTINE DEPENDENCE 06/03/2019 KAZSANTI Ot 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, LYMPH NODES 06/03/2019 KAZSANTI Ot I25.10 ATHSCL HEART DISEASE OF [place] CORONARY 06/03/2019 KAZSANTI Ot I25.2 OLD MYOCARDIAL INFARCTION 06/03/2019 SANTI MCCURDY Ot Z51.11 ENCOUNTER FOR ANTINEOPLASTIC CHEMOTHERAP 06/03/2019 SANTI MCCURDY Ot Z79.01 PULL THROUGH HOOKER (CURRENT) USE OF ANTICOAGULANT 06/03/2019 SANTI MCCURDY N Ot Z79.02 CORRECTION (CURRENT) USE OF ANTITHROMBOTI 06/03/2019 SANTI MCCURDY N Ot Z79.82 PULL THROUGH [place]OOKER (CURRENT) USE OF ASPIRIN 06/03/2019 SANTI MCCURDY Ot 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 06/03/2019 SANTI MCCURDY Ot Z95.5 PRESENCE OF CORONARY ANGIOPLASTY IMPLANT 06/03/2019 SANTI MCCURDY Ot Z98.1 ARTHRODESIS STATUS 06/12/2019 SANTI MCCURDY Ot 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, LYMPH NODES 06/12/2019 SANTI MCCURDY Ot I25.10 ATHSCL HEART DISEASE OF [place] CORONARY 06/12/2019 SANTI MCCURDY Ot I25.2 OLD MYOCARDIAL INFARCTION 06/12/2019 SANTI MCCURDY Ot Z51.11 ENCOUNTER FOR ANTINEOPLASTIC CHEMOTHERAP 06/12/2019 SANTI MCCURDY Ot Z79.01 CORRECTION (CURRENT) USE OF ANTICOAGULANT 06/12/2019 SANTI MCCURDY N Ot Z79.02 PULL THROUGH HOOKER (CURRENT) USE OF ANTITHROMBOTI 06/12/2019 SANTI MCCURDY N Ot Z79.82 PULL THROUGH [place]OOKER (CURRENT) USE OF ASPIRIN 06/12/2019 SANTI MCCURDY N Ot 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 06/12/2019 SANTI MCCURDY N Ot Z95.5 PRESENCE OF CORONARY ANGIOPLASTY IMPLANT 06/12/2019 SANTI MCCURDY Ot Z98.1 ARTHRODESIS STATUS 06/24/2019 SANTI MCCURDY Velia Ot 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, LYMPH NODES 06/24/2019 SANTI MCCURDY Velia Ot I25.10 ATHSCL HEART DISEASE OF [place] CORONARY 06/24/2019 KAZ SANTI Gunn Ot I25.2 OLD MYOCARDIAL INFARCTION 06/24/2019 KAZ SANTI Gunn Ot Z51.11 ENCOUNTER FOR ANTINEOPLASTIC CHEMOTHERAP 06/24/2019 KAZ SANTI Gunn Ot Z79.01 PULL THROUGH [place]ER (CURRENT) USE OF ANTICOAGULANT 06/24/2019 KAZ SANTI Gunn Ot Z79.02 CORRECTION (CURRENT) USE OF ANTITHROMBOTI 06/24/2019 KAZ SANTI Gunn Ot Z79.82 PULL THROUGH HOOKER (CURRENT) USE OF ASPIRIN 06/24/2019 KAZ SANTI Gunn Ot 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 06/24/2019 KAZ SANTI Gunn Ot Z95.5 PRESENCE OF CORONARY ANGIOPLASTY IMPLANT 06/24/2019 KAZ SANTI Gunn Ot Z98.1 ARTHRODESIS STATUS 06/25/2019 SAM LUKE DO Ot Z01.8 18 ENCOUNTER FOR OTHER PREPROCEDURAL EXAMIN 06/26/2019 SAM LUKE DO Ot B18.2 CHRONIC VIRAL HEPATITIS C 06/26/2019 SAM LUKE DO Ot C85.9 0 NON-[place] LYMPHOMA, UNSPECIFIED, UNSPE 06/26/2019 SAM LUKE DO Ot E78.5 HYPERLIPIDEMIA, UNSPECIFIED 06/26/2019 SAM LUKE DO Ot I11.9 HYPERTENSIVE HEART DISEASE WITHOUT HEART 06/26/2019 SAM LUKE DO Ot I25.1 0 ATHSCL HEART DISEASE OF [place] CORONARY 06/26/2019 SAM LUKE DO Ot I43 CARDIOMYOPATHY IN DISEASES CLASSIFIED EL 06/26/2019 SAM LUKE DO Ot I48.9 1 UNSPECIFIED ATRIAL FIBRILLATION 06/26/2019 SAM LUKE DO Ot I73.9 PERIPHERAL VASCULAR DISEASE, UNSPECIFIED 06/26/2019 SAM LUKE DO Ot I87.2 VENOUS INSUFFICIENCY (CHRONIC) (PERIPHER 06/26/2019 SAM LUKE DO Ot Z11.9 ENCOUNTER FOR SCREENING FOR INFEC/PARAST 06/26/2019 SAM LUKE DO Ot Z79.0 1 CORRECTION (CURRENT) USE OF ANTICOAGULANT 06/26/2019 SAM LUKE DO Ot Z79.0 2 CORRECTION (CURRENT) USE OF ANTITHROMBOTI 06/26/2019 SAM LUKE DO Ot Z79.8 4 CORRECTION (CURRENT) USE OF ORAL HYPOGLYC 06/26/2019 SAM LUKE DO Ot Z79.8 91 CORRECTION (CURRENT) USE OF OPIATE ANALGE 06/26/2019 SAM LUKE DO Ot Z79.8 99 OTHER PULL THROUGH [place]ER (CURRENT) DRUG THERAPY 06/26/2019 ALCHAPIN SAM COFFEY Ot Z80.9 FAMILY HISTORY OF MALIGNANT NEOPLASM, UN 06/26/2019 SAM LUKE DO Ot Z82.4 9 FAMILY HX OF ISCHEM HEART DIS AND OTH DI 06/26/2019 SAM LUKE DO Ot Z87.8 91 PERSONAL HISTORY OF NICOTINE DEPENDENCE 06/26/2019 SAM LUKE DO Ot Z95.1 PRESENCE OF AORTOCORONARY BYPASS GRAFT 06/29/2019 SANTI MCCURDY Ot 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, LYMPH NODES 06/29/2019 SANTI MCCURDY Ot I25.10 ATHSCL HEART DISEASE OF [place] CORONARY 06/29/2019 SANTI MCCURDY Ot I25.2 OLD MYOCARDIAL INFARCTION 06/29/2019 SANTI MCCURDY Ot Z51.11 ENCOUNTER FOR ANTINEOPLASTIC CHEMOTHERAP 06/29/2019 SANTI MCCURDY Ot Z79.01 CORRECTION (CURRENT) USE OF ANTICOAGULANT 06/29/2019 SANTI MCCURDY Ot Z79.02 CORRECTION (CURRENT) USE OF ANTITHROMBOTI 06/29/2019 SANTI MCCURDY Ot Z79.82 CORRECTION (CURRENT) USE OF ASPIRIN 06/29/2019 SANTI MCCURDY Ot 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 06/29/2019 SANTI MCCURDY Ot Z95.5 PRESENCE OF CORONARY ANGIOPLASTY IMPLANT 06/29/2019 SANTI MCCURDY Ot Z98.1 ARTHRODESIS STATUS 07/01/2019 SAM LUKE DO Ot B18.2 CHRONIC VIRAL HEPATITIS C 07/01/2019 SAM LUKE DO Ot C85.9 0 NON-[place] LYMPHOMA, UNSPECIFIED, UNSPE 07/01/2019 SAM LUKE DO Ot E78.5 HYPERLIPIDEMIA, UNSPECIFIED 07/01/2019 SAM LUKE DO Ot I11.9 HYPERTENSIVE HEART DISEASE WITHOUT HEART 07/01/2019 SAM LUKE DO Ot I25.1 0 ATHSCL HEART DISEASE OF [place] CORONARY 07/01/2019 SAM LUKE DO Ot I43 CARDIOMYOPATHY IN DISEASES CLASSIFIED EL 07/01/2019 SAM LUKE DO Ot I48.9 1 UNSPECIFIED ATRIAL FIBRILLATION 07/01/2019 SAM LUKE DO Ot I73.9 PERIPHERAL VASCULAR DISEASE, UNSPECIFIED 07/01/2019 SAM LUKE DO Ot I87.2 VENOUS INSUFFICIENCY (CHRONIC) (PERIPHER 07/01/2019 SAM LUKE DO Ot Z11.9 ENCOUNTER FOR SCREENING FOR INFEC/PARAST 07/01/2019 SAM LUKE DO Ot Z79.0 1 PULL THROUGH [place]ER (CURRENT) USE OF ANTICOAGULANT 07/01/2019 SAM LUKE DO Ot Z79.0 2 CORRECTION (CURRENT) USE OF ANTITHROMBOTI 07/01/2019 SAM LUKE DO Ot Z79.8 4 PULL THROUGH [place]ER (CURRENT) USE OF ORAL HYPOGLYC 07/01/2019 SAM LUKE DO Ot Z79.8 91 PULL THROUGH [place]OOKER (CURRENT) USE OF OPIATE ANALGE 07/01/2019 SAM LUKE DO Ot Z79.8 99 OTHER PULL THROUGH [place]ER (CURRENT) DRUG THERAPY 07/01/2019 SAM LUKE DO Ot Z80.9 FAMILY HISTORY OF MALIGNANT NEOPLASM, UN 07/01/2019 SAM LUKE DO Ot Z82.4 9 FAMILY HX OF ISCHEM HEART DIS AND OTH DI 07/01/2019 SAM LUKE DO Ot Z87.8 91 PERSONAL HISTORY OF NICOTINE DEPENDENCE 07/01/2019 SAM LUKE DO Ot Z95.1 PRESENCE OF AORTOCORONARY BYPASS GRAFT 07/01/2019 ANDREA STEARNS, JAS Dwyer Ot E11.40 TYPE 2 DIABETES MELLITUS WITH DIABETIC N 07/01/2019 ANDREA STEARNS, JAS Dwyer Ot E78.00 PURE HYPERCHOLESTEROLEMIA, UNSPECIFIED 07/01/2019 JAS MENDEZ MD Ot I10 ESSENTIAL (PRIMARY) HYPERTENSION 07/01/2019 JAS MENDEZ MD, Ot S01.81XA LACERATION W/O FOREIGN BODY OF OTH PART 07/01/2019 JAS MENDEZ MD, Ot W01.190A FALL SAME LEV FROM SLIP/TRIP W STRIKE AG 07/01/2019 JAS MENDEZ MD, Ot Z23 ENCOUNTER FOR IMMUNIZATION 07/01/2019 JAS MENDEZ MD, Ot Z79.01 PULL THROUGH [place]ER (CURRENT) USE OF ANTICOAGULANT 07/01/2019 JAS MENDEZ MD, Ot Z79.02 CORRECTION (CURRENT) USE OF ANTITHROMBOTI 07/01/2019 JAS MENDEZ MD, Ot Z79.82 CORRECTION (CURRENT) USE OF ASPIRIN 07/01/2019 JAS MENDEZ MD, Ot Z79.84 PULL THROUGH HOOKER (CURRENT) USE OF ORAL HYPOGLYC 07/01/2019 JAS MENDEZ MD, Ot Z82.49 FAMILY HX OF ISCHEM HEART DIS AND OTH DI 07/01/2019 JAS MENDEZ MD, Ot Z85.72 PERSONAL HISTORY OF NON-[place]ODG[place]IN LYMPHOMA 07/01/2019 JAS MENDEZ MD, Ot Z87.891 PERSONAL HISTORY OF NICOTINE DEPENDENCE 07/01/2019 JAS MENDEZ MD, Ot Z95.5 PRESENCE OF CORONARY ANGIOPLASTY IMPLANT 07/02/2019 SANTI MCCURDY Ot 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, LYMPH NODES 07/02/2019 SANTI MCCURDY Ot I25.10 ATHSCL HEART DISEASE OF [place] CORONARY 07/02/2019 SANTI MCCURDY Ot I25.2 OLD MYOCARDIAL INFARCTION 07/02/2019 SANTI MCCURDY Ot Z51.11 ENCOUNTER FOR ANTINEOPLASTIC CHEMOTHERAP 07/02/2019 SANTI MCCURDY Ot Z79.01 CORRECTION (CURRENT) USE OF ANTICOAGULANT 07/02/2019 SANTI MCCURDY Ot Z79.02 PULL THROUGH HOOKER (CURRENT) USE OF ANTITHROMBOTI 07/02/2019 SANTI MCCURDY Ot Z79.82 PULL THROUGH [place]OOKER (CURRENT) USE OF ASPIRIN 07/02/2019 SANTI MCCURDY Ot 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 07/02/2019 SANTI MCCURDY Velia Ot Z95.5 PRESENCE OF CORONARY ANGIOPLASTY IMPLANT 07/02/2019 SANTI MCCURDY Velia Ot Z98.1 ARTHRODESIS STATUS 07/03/2019 SAM LUKE DO Ot B18.2 CHRONIC VIRAL HEPATITIS C 07/03/2019 SAM LUKE DO Ot C85.9 0 NON-[place] LYMPHOMA, UNSPECIFIED, UNSPE 07/03/2019 SAM LUKE DO Ot E78.5 HYPERLIPIDEMIA, UNSPECIFIED 07/03/2019 SAM LUKE DO Ot I11.9 HYPERTENSIVE HEART DISEASE WITHOUT HEART 07/03/2019 SAM LUKE DO Ot I25.1 0 ATHSCL HEART DISEASE OF [place] CORONARY 07/03/2019 SAM LUKE DO Ot I43 CARDIOMYOPATHY IN DISEASES CLASSIFIED EL 07/03/2019 SAM LUKE DO Ot I48.9 1 UNSPECIFIED ATRIAL FIBRILLATION 07/03/2019 SAM LUKE DO Ot I73.9 PERIPHERAL VASCULAR DISEASE, UNSPECIFIED 07/03/2019 SAM LUKE DO Ot I87.2 VENOUS INSUFFICIENCY (CHRONIC) (PERIPHER 07/03/2019 SAM LUKE DO Ot Z11.9 ENCOUNTER FOR SCREENING FOR INFEC/PARAST 07/03/2019 SAM LUKE DO Ot Z79.0 1 CORRECTION (CURRENT) USE OF ANTICOAGULANT 07/03/2019 SAM LUKE DO Ot Z79.0 2 CORRECTION (CURRENT) USE OF ANTITHROMBOTI 07/03/2019 SAM LUKE DO Ot Z79.8 4 CORRECTION (CURRENT) USE OF ORAL HYPOGLYC 07/03/2019 SAM LUKE DO Ot Z79.8 91 CORRECTION (CURRENT) USE OF OPIATE ANALGE 07/03/2019 SAM LUKE DO Ot Z79.8 99 OTHER PULL THROUGH [place]ER (CURRENT) DRUG THERAPY 07/03/2019 SAM LUKE DO Ot Z80.9 FAMILY HISTORY OF MALIGNANT NEOPLASM, UN 07/03/2019 SAM LUKE DO Ot Z82.4 9 FAMILY HX OF ISCHEM HEART DIS AND OTH DI 07/03/2019 SAM LUKE DO Ot Z87.8 91 PERSONAL HISTORY OF NICOTINE DEPENDENCE 07/03/2019 DELMAN DO, SAM B Ot Z95.1 PRESENCE OF AORTOCORONARY BYPASS GRAFT 07/03/2019 JAS MENDEZ MD, Ot E11.40 TYPE 2 DIABETES MELLITUS WITH DIABETIC N 07/03/2019 JAS MENDEZ MD, Ot E78.00 PURE HYPERCHOLESTEROLEMIA, UNSPECIFIED 07/03/2019 JAS MENDEZ MD, Ot I10 ESSENTIAL (PRIMARY) HYPERTENSION 07/03/2019 JAS MENDEZ MD, Ot S01.81XA LACERATION W/O FOREIGN BODY OF OTH PART 07/03/2019 JAS MENDEZ MD, Ot W01.190A FALL SAME LEV FROM SLIP/TRIP W STRIKE AG 07/03/2019 JAS MENDEZ MD, Ot Z23 ENCOUNTER FOR IMMUNIZATION 07/03/2019 JAS MENDEZ MD, Ot Z79.01 CORRECTION (CURRENT) USE OF ANTICOAGULANT 07/03/2019 JAS MENDEZ MD, Ot Z79.02 PULL THROUGH [place]OOKER (CURRENT) USE OF ANTITHROMBOTI 07/03/2019 JAS MENDEZ MD, Ot Z79.82 CORRECTION (CURRENT) USE OF ASPIRIN 07/03/2019 JAS MENDEZ MD, Ot Z79.84 PULL THROUGH HOOKER (CURRENT) USE OF ORAL HYPOGLYC 07/03/2019 JAS MENDEZ MD, Ot Z82.49 FAMILY HX OF ISCHEM HEART DIS AND OTH DI 07/03/2019 JAS MENDEZ MD, Ot Z85.72 PERSONAL HISTORY OF NON-[place]ODG[place]IN LYMPHOMA 07/03/2019 JAS MENDEZ MD Ot Z87.891 PERSONAL HISTORY OF NICOTINE DEPENDENCE 07/03/2019 JAS MENDEZ MD Ot Z95.5 PRESENCE OF CORONARY ANGIOPLASTY IMPLANT 07/03/2019 JAS EMNDEZ MD, Ot E11.40 TYPE 2 DIABETES MELLITUS WITH DIABETIC N 07/03/2019 JAS MENDEZ MD, Ot E78.00 PURE HYPERCHOLESTEROLEMIA, UNSPECIFIED 07/03/2019 JAS MENDEZ MD, Ot I10 ESSENTIAL (PRIMARY) HYPERTENSION 07/03/2019 JAS MENDEZ MD, Ot S01.81XA LACERATION W/O FOREIGN BODY OF OTH PART 07/03/2019 JAS MENDEZ MD, Ot W01.190A FALL SAME LEV FROM SLIP/TRIP W STRIKE AG 07/03/2019 JAS MENDEZ MD, Ot Z23 ENCOUNTER FOR IMMUNIZATION 07/03/2019 JAS MENDEZ MD, Ot Z79.01 CORRECTION (CURRENT) USE OF ANTICOAGULANT 07/03/2019 JAS MENDEZ MD, Ot Z79.02 PULL THROUGH HOOKER (CURRENT) USE OF ANTITHROMBOTI 07/03/2019 JAS MENDEZ MD, Ot Z79.82 CORRECTION (CURRENT) USE OF ASPIRIN 07/03/2019 JAS MENDEZ MD, Ot Z79.84 CORRECTION (CURRENT) USE OF ORAL HYPOGLYC 07/03/2019 JAS MENDEZ MD, Ot Z82.49 FAMILY HX OF ISCHEM HEART DIS AND OTH DI 07/03/2019 JAS MENDEZ MD, Ot Z85.72 PERSONAL HISTORY OF NON-[place]OD[place]IN LYMPHOMA 07/03/2019 JAS MENDEZ MD, Ot Z87.891 PERSONAL HISTORY OF NICOTINE DEPENDENCE 07/03/2019 JAS MENDEZ MD, Ot Z95.5 PRESENCE OF CORONARY ANGIOPLASTY IMPLANT 07/03/2019 SAM LUKE DO Ot Z01.8 18 ENCOUNTER FOR OTHER PREPROCEDURAL EXAMIN 07/07/2019 SANTI MCCURDY Ot 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, LYMPH NODES 07/07/2019 SANTI MCCURDY Ot I25.10 ATHSCL HEART DISEASE OF [place] CORONARY 07/07/2019 SANTI MCCURDY Ot I25.2 OLD MYOCARDIAL INFARCTION 07/07/2019 SANTI MCCURDY Ot Z51.11 ENCOUNTER FOR ANTINEOPLASTIC CHEMOTHERAP 07/07/2019 SANTI MCCURDY Ot Z79.01 CORRECTION (CURRENT) USE OF ANTICOAGULANT 07/07/2019 SANTI MCCURDY Ot Z79.02 PULL THROUGH HOOKER (CURRENT) USE OF ANTITHROMBOTI 07/07/2019 SANTI MCCURDY Ot Z79.82 PULL THROUGH HOOKER (CURRENT) USE OF ASPIRIN 07/07/2019 SANTI MCCURDY Ot 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 07/07/2019 KAZKATELIN SEPULVEDAESTEBAN Gunn Ot Z95.5 PRESENCE OF CORONARY ANGIOPLASTY IMPLANT 07/07/2019 KAZKATELIN SEPULVEDAESTEBAN Gunn Ot Z98.1 ARTHRODESIS STATUS 07/09/2019 JAS MENDEZ MD, Ot E11.40 TYPE 2 DIABETES MELLITUS WITH DIABETIC N 07/09/2019 JAS MENDEZ MD, Ot E78.00 PURE HYPERCHOLESTEROLEMIA, UNSPECIFIED 07/09/2019 JAS MENDEZ MD, Ot I10 ESSENTIAL (PRIMARY) HYPERTENSION 07/09/2019 JAS MENDEZ MD, Ot S01.81XA LACERATION W/O FOREIGN BODY OF OTH PART 07/09/2019 JAS MENDEZ MD, Ot W01.190A FALL SAME LEV FROM SLIP/TRIP W STRIKE AG 07/09/2019 JAS MENDEZ MD, Ot Z23 ENCOUNTER FOR IMMUNIZATION 07/09/2019 JAS MENDEZ MD, Ot Z79.01 CORRECTION (CURRENT) USE OF ANTICOAGULANT 07/09/2019 JAS MENDEZ MD, Ot Z79.02 PULL THROUGH HOOKER (CURRENT) USE OF ANTITHROMBOTI 07/09/2019 JAS MENDEZ MD, Ot Z79.82 CORRECTION (CURRENT) USE OF ASPIRIN 07/09/2019 JAS MENDEZ MD, Ot Z79.84 CORRECTION (CURRENT) USE OF ORAL HYPOGLYC 07/09/2019 JAS MENDEZ MD, Ot Z82.49 FAMILY HX OF ISCHEM HEART DIS AND OTH DI 07/09/2019 JAS MENDEZ MD, Ot Z85.72 PERSONAL HISTORY OF NON-HODGKIN LYMPHOMA 07/09/2019 JAS MENDEZ MD, Ot Z87.891 PERSONAL HISTORY OF NICOTINE DEPENDENCE 07/09/2019 JAS MENDEZ MD Ot Z95.5 PRESENCE OF CORONARY ANGIOPLASTY IMPLANT 07/14/2019 Ulises BLOUNT MD Ot I25.10 ATHSCL HEART DISEASE OF [place] CORONARY 07/14/2019 Ulises BLOUNT MD Ot I48.91 UNSPECIFIED ATRIAL FIBRILLATION 07/14/2019 Ulises BLOUNT MD Ot I51 .7 CARDIOMEGALY 07/14/2019 JOSE ALEJANDRO STEARNS, Ulises GUILLEN Ot 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 08/12/2019 SANTI MCCURDY N Ot 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, LYMPH NODES 08/12/2019 KAZSANTI SEPULVEDA N Ot I25.10 ATHSCL HEART DISEASE OF [place] CORONARY 08/12/2019 KATELIN MCCURDYAN N Ot I25.2 OLD MYOCARDIAL INFARCTION 08/12/2019 KAZ, SANTI N Ot Z51.11 ENCOUNTER FOR ANTINEOPLASTIC CHEMOTHERAP 08/12/2019 SANTI MCCURDY N Ot Z79.01 CORRECTION (CURRENT) USE OF ANTICOAGULANT 08/12/2019 KAZ, BOBAN N Ot Z79.02 PULL THROUGH HOOKER (CURRENT) USE OF ANTITHROMBOTI 08/12/2019 KAZ, SANTI N Ot Z79.82 CORRECTION (CURRENT) USE OF ASPIRIN 08/12/2019 KAZ SANTI N Ot 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 08/12/2019 KAZ, SANTI N Ot Z95.5 PRESENCE OF CORONARY ANGIOPLASTY IMPLANT 08/12/2019 KAZ SANTI N Ot Z98.1 ARTHRODESIS STATUS 08/25/2019 KATELIN MCCURDYESTEBAN N Ot 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, LYMPH NODES 08/25/2019 KAZSANTI SEPULVEDA N Ot I25.10 ATHSCL HEART DISEASE OF [place] CORONARY 08/25/2019 SANTI MCCURDY N Ot I25.2 OLD MYOCARDIAL INFARCTION 08/25/2019 SANTI MCCURDY N Ot Z51.11 ENCOUNTER FOR ANTINEOPLASTIC CHEMOTHERAP 08/25/2019 SANTI MCCURDY N Ot Z79.01 P[place] (CURRENT) USE OF ANTICOAGULANT 08/25/2019 KAZ BOBESTEBAN N Ot Z79.02 PULL [place]ROUGH [place] (CURRENT) USE OF ANTITHROMBOTI 08/25/2019 KAZKATELINAN N Ot Z79.82 PULL THROUGH [place] (CURRENT) USE OF ASPIRIN 08/25/2019 KAZSANTI N Ot 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 08/25/2019 KAZ SANTI N Ot Z95.5 PRESENCE OF CORONARY ANGIOPLASTY IMPLANT 08/25/2019 KAZSANTI N Ot Z98.1 ARTHRODESIS STATUS 08/31/2019 NOVAK, HILAH S HEATING MECHANIC Ot C85.90 NON-HODGKIN LYMPHOMA, UNSPECIFIED, UNSPE 08/31/2019 MIGUEL NOVAK HEATING MECHANIC Ot Z01.89 ENCOUNTER FOR OTHER SPECIFIED SPECIAL EX 08/31/2019 SANTI MCCURDY N Ot 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, LYMPH NODES 08/31/2019 AKZ, SANTI N Ot I25.10 ATHSCL HEART DISEASE OF [place] CORONARY 08/31/2019 KAZ, SANTI N Ot I25.2 OLD MYOCARDIAL INFARCTION 08/31/2019 KAZ, SANTI N Ot Z51.11 ENCOUNTER FOR ANTINEOPLASTIC CHEMOTHERAP 08/31/2019 KAZ SANTI N Ot Z79.01 CORRECTION (CURRENT) USE OF ANTICOAGULANT 08/31/2019 KAZKATELIN SEPULVEDAAN N Ot Z79.02 P[place] (CURRENT) USE OF ANTITHROMBOTI 08/31/2019 KAZ BOBAN N Ot Z79.82 PULL THROUGH [place] (CURRENT) USE OF ASPIRIN 08/31/2019 KATELIN MCCURDYAN N Ot 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 08/31/2019 KAZSANTI N Ot 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 PRESENCE OF CORONARY ANGIOPLASTY IMPLANT 08/31/2019 KAZSANTI N Ot Z98.1 ARTHRODESIS STATUS 09/14/2019 KAZ SANTI N Ot 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, LYMPH NODES 09/14/2019 KAZ, SANTI N Ot I25.10 ATHSCL HEART DISEASE OF [place] CORONARY 09/14/2019 KAZ SANTI N Ot I25.2 OLD MYOCARDIAL INFARCTION 09/14/2019 KAZ, SANTI N Ot R73.9 HYPERGLYCEMIA, UNSPECIFIED 09/14/2019 KAZSANTI N Ot Z51.11 ENCOUNTER FOR ANTINEOPLASTIC CHEMOTHERAP 09/14/2019 KAZSANTI N Ot Z79.01 CORRECTION (CURRENT) USE OF ANTICOAGULANT 09/14/2019 KAZKATELINAN N Ot Z79.02 P[place] (CURRENT) USE OF ANTITHROMBOTI 09/14/2019 KAZKATELINAN N Ot Z79.82 PULL THROUGH [place] (CURRENT) USE OF ASPIRIN 09/14/2019 KAZSANTI N Ot 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 09/14/2019 KAZSANTI SEPULVEDA N Ot Z95.5 PRESENCE OF CORONARY ANGIOPLASTY IMPLANT 09/14/2019 SANTI MCCURDY N Ot Z98.1 ARTHRODESIS STATUS 09/14/2019 SANTI MCCURDY N Ot Z98.890 OTHER SPECIFIED POSTPROCEDURAL STATES 11/18/2019 SANTI MCCURDY N Ot 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, LYMPH NODES 11/18/2019 SANTI MCCURDY N Ot I25.10 ATHSCL HEART DISEASE OF [place] CORONARY 11/18/2019 SANTI MCCURDY N Ot I25.2 OLD MYOCARDIAL INFARCTION 11/18/2019 KAZ KATELINESTEBAN N Ot R73.9 HYPERGLYCEMIA, UNSPECIFIED 11/18/2019 SANTI MCCURDY N Ot Z51.11 ENCOUNTER FOR ANTINEOPLASTIC CHEMOTHERAP 11/18/2019 SANTI MCCURDY N Ot Z79.01 CORRECTION (CURRENT) USE OF ANTICOAGULANT 11/18/2019 KAZSANTI N Ot Z79.02 CORRECTION (CURRENT) USE OF ANTITHROMBOTI 11/18/2019 KAZSANTI N Ot Z79.82 PULL [place]ROUGH [place] (CURRENT) USE OF ASPIRIN 11/18/2019 KAZSANTI N Ot 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 11/18/2019 SANTI MCCURDY N Ot Z95.5 PRESENCE OF CORONARY ANGIOPLASTY IMPLANT 11/18/2019 SANTI MCCURDY N Ot Z98.1 ARTHRODESIS STATUS 11/18/2019 SANTI MCCURDY N Ot Z98.890 OTHER SPECIFIED POSTPROCEDURAL STATES 11/27/2019 SANTI MCCURDY N Ot 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, LYMPH NODES 11/27/2019 SANTI MCCURDY N Ot I25.10 ATHSCL HEART DISEASE OF [place] CORONARY 11/27/2019 SANTI MCCURDY N Ot I25.2 OLD MYOCARDIAL INFARCTION 11/27/2019 SANTI MCCURDY N Ot R73.9 HYPERGLYCEMIA, UNSPECIFIED 11/27/2019 KAZ KATELINESTEBAN N Ot Z51.11 ENCOUNTER FOR ANTINEOPLASTIC CHEMOTHERAP 11/27/2019 KAZSANTI N Ot Z79.01 [place] (CURRENT) USE OF ANTICOAGULANT 11/27/2019 KAZSANTI N Ot Z79.02 CORRECTION (CURRENT) USE OF ANTITHROMBOTI 11/27/2019 SANTI MCCURDY N Ot Z79.82 P[place] (CURRENT) USE OF ASPIRIN 11/27/2019 SANTI MCCURDY N Ot 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 11/27/2019 SANTI MCCURDY N Ot Z95.5 PRESENCE OF CORONARY ANGIOPLASTY IMPLANT 11/27/2019 SANTI MCCURDY N Ot Z98.1 ARTHRODESIS STATUS 11/27/2019 SANTI MCCURDY N Ot Z98.890 OTHER SPECIFIED POSTPROCEDURAL STATES 11/29/2019 SANTI MCCURDY N Ot 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, LYMPH NODES 11/29/2019 KAZ SANTI N Ot I25.10 ATHSCL HEART DISEASE OF [place] CORONARY 11/29/2019 KAZ SANTI N Ot I25.2 OLD MYOCARDIAL INFARCTION 11/29/2019 KAZSANTI N Ot R73.9 HYPERGLYCEMIA, UNSPECIFIED 11/29/2019 AKZ SANTI N Ot Z51.11 ENCOUNTER FOR ANTINEOPLASTIC CHEMOTHERAP 11/29/2019 KAZ KATELINESTEBAN N Ot Z79.01 P[place] (CURRENT) USE OF ANTICOAGULANT 11/29/2019 KAZSANTI N Ot Z79.02 CORRECTION (CURRENT) USE OF ANTITHROMBOTI 11/29/2019 KAZ SANTI N Ot Z79.82 PULL THROUGH HOOKER (CURRENT) USE OF ASPIRIN 11/29/2019 SANTI MCCURDY N Ot 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 11/29/2019 SANTI MCCURDY N Ot Z95.5 PRESENCE OF CORONARY ANGIOPLASTY IMPLANT 11/29/2019 SANTI MCCURDY N Ot Z98.1 ARTHRODESIS STATUS 11/29/2019 SANTI MCCURDY N Ot Z98.890 OTHER SPECIFIED POSTPROCEDURAL STATES 11/30/2019 KAZ KATELINESTEBAN N Ot 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, LYMPH NODES 11/30/2019 KAZ SANTI N Ot I25.10 ATHSCL HEART DISEASE OF [place] CORONARY 11/30/2019 KAZ SANTI N Ot I25.2 OLD MYOCARDIAL INFARCTION 11/30/2019 KAZ SANTI N Ot R73.9 HYPERGLYCEMIA, UNSPECIFIED 11/30/2019 KAZSANTI N Ot Z51.11 ENCOUNTER FOR ANTINEOPLASTIC CHEMOTHERAP 11/30/2019 KAZ SANTI N Ot Z79.01 PULL THROUGH [place] (CURRENT) USE OF ANTICOAGULANT 11/30/2019 SANTI MCCURDY Ot Z79.02 CORRECTION (CURRENT) USE OF ANTITHROMBOTI 11/30/2019 SANTI MCCURDY Ot Z79.82 PULL THROUGH [place] (CURRENT) USE OF ASPIRIN 11/30/2019 SANTI MCCURDY Ot 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 11/30/2019 SANTI MCCURDY Ot Z95.5 PRESENCE OF CORONARY ANGIOPLASTY IMPLANT 11/30/2019 SANTI MCCURDY Ot Z98.1 ARTHRODESIS STATUS 11/30/2019 SANTI MCCURDY Ot Z98.890 OTHER SPECIFIED POSTPROCEDURAL STATES Procedures Code Description Performed By Per blair On [id number] DI LATION OF 1 COR ART WITH DRUG-ELUT INT 07/26/2015 [id number] ME ASURE OF CARDIAC SAMPL PRESSURE, L H 07/26/2015 [id number] FL UOROSCOPY OF MULT COR ART USING L OSM 07/26/2015 [id number] FL UOROSCOPY OF LEFT HEART USING LOW OSMO 07/26/2015 [id number] IN [facility] [place] 05/14/2019 [id number] ME ASURE OF CARDIAC SAMPL PRESSURE, R H 05/14/2019 [id number] FL UOROSCOPY OF RIGHT HEART USING LOW OSM 05/14/2019 [id number] FL UOROSCOPY OF RIGHT PULMONARY ARTERY US 05/14/2019 [id number] FL UOROSCOPY OF LEFT PULMONARY ARTERY USI 05/14/2019 [id number] DI LATION OF 1 COR ART WITH DRUG-ELUT INT 05/15/2019 [id number] ME ASURE OF CARDIAC SAMPL PRESSURE, L H 05/15/2019 [id number] FL UOROSCOPY OF MULT COR ART USING L OSM 05/15/2019 [id number] FL UOROSCOPY OF LEFT HEART USING LOW OSMO 05/15/2019 Results Test Result Range Complete blood count (CBC) with automate d white blood cell (WBC) differential - 05/14/19 06:45 Blood leukocytes automated count (number/volume) 5.1 10*3/uL 4.3-11.0 Blood erythrocytes automated count (number/volume) 3.95 10*6/uL 4.35-5.85 Venous blood hemoglobin measurement (mass/volume) 11.0 g/dL 13.3-17.7 Blood hematocrit (volume fraction) 35 % 40-54 Automated erythrocyte mean corpuscular volume 90 [ foz_us] 80-99 Automated erythrocyte mean corpuscular h emoglobin (mass per erythrocyte) 28 pg 25-34 Automated erythrocyte mean corpuscular h emoglobin concentration measurement (mass/volume) 31 g/dL 32-36 Automated erythrocyte distribution width ratio 19. 7 % 10.0- 14.5 Automated blood platelet count (count/volume) 170 10*3/uL 130-400 Automated blood platelet mean volume measurement 8.8 [foz_us] 7.4-10.4 Automated blood neutrophils/100 leukocytes 78 % 42-75 Automated blood lymphocytes/100 leukocytes 13 % 12-44 Blood monocytes/100 leukocytes 8 % 0-12 Automated blood eosinophils/100 leukocytes 2 % 0-10 Automated blood basophils/100 leukocytes 0 % 0-10 Blood neutrophils automated count (number/volume) 4.0 10*3 1.8-7.8 Blood lymphocytes automated count (number/volume) 0.7 10*3 1.0-4.0 Blood monocytes automated count (number/volume) 0. 4 10*3 0.0-1.0 Automated eosinophil count 0.1 10*3/uL 0 .0-0.3 Automated blood basophil count (count/volume) 0.0 10*3/uL 0.0-0.1 Comprehensive metabolic panel - 05/14/19 06:45 Serum or plasma sodium measurement (moles/volume) 138 mmol/L 135-145 Serum or plasma potassium measurement (moles/volume) 3.8 mmol/L 3.6-5.0 Serum or plasma chloride measurement (moles/volume) 102 mmol/L 98-107 Carbon dioxide 19 mmol/L 21-32 Serum or plasma anion gap determination (moles/volume) 17 mmol/L 5-14 Serum or plasma urea nitrogen measurement (mass/volume ) 22 mg/dL 7-18 Serum or plasma creatinine measurement (mass/volume) 0.63 mg/dL 0.60-1.30 Serum or plasma urea nitrogen/creatinine mass ratio 35 NRG Serum or plasma creatinine measurement w ith calculation of estimated glomerular filtration rate > NRG Serum or plasma glucose measurement (mass/volume) 146 mg/dL 70-105 Serum or plasma calcium measurement (mass/volume) 8.8 mg/dL 8.5-10.1 Serum or plasma total bilirubin measurement (mass/volu me) 0.6 mg/dL 0.1-1.0 Serum or plasma alkaline phosphatase gaetano surement (enzymatic activity/volume) 140 U/L 40-136 Serum or plasma aspartate aminotransfera se measurement (enzymatic activity/volume) 18 U/L 5-34 Serum or plasma alanine aminotransferase measurement (enzymatic activity/volume) 15 U/L 0-55 Serum or plasma protein measurement (mass/volume) 6.0 g/dL 6.4-8.2 Serum or plasma albumin measurement (mass/volume) 3.6 g/dL 3.2-4.5 CALCIUM CORRECTED 9.1 mg/dL 8.5-10.1 Serum or plasma troponin i.cardiac measu rement (mass/volume) - 05/14/19 06:45 Serum or plasma troponin i.cardiac measurement (mass/v olume) < ng/mL <0.028 Blood lactic acid measurement (moles/vol ume) - 05/14/19 06:55 Blood lactic acid measurement (moles/volume) 3.99 mmol/L 0.50-2.00 PT panel in platelet poor plasma by coag ulation assay - 05/14/19 06:55 Prothrombin time (PT) in platelet poor plasma by coagu lation assay 14.2 s 12.2-14.7 INR in platelet poor plasma or blood by coagulation as say 1.1 0.8-1.4 Activated partial thromboplastin time (a PTT) in platelet poor plasma bycoagulation assay - 05/14/19 06:55 Activated partial thromboplastin time (a PTT) in platelet poor plasma bycoagulation assay 23 s 24-35 Bacterial blood culture - 05/14/19 06:55 Bacterial blood culture NG NRG Serum or plasma lactate measurement (mol es/volume) - 05/14/19 08:48 Serum or plasma lactate measurement (moles/volume) 4.18 mmol/L 0.50-2.00 Bacterial blood culture - 05/14/19 08:48 Bacterial blood culture NG NRG Arterial blood gas measurement - 9 08:52 Blood pCO2 36 mm[Hg] 35-45 Blood pO2 74 mm[Hg] 79-93 Arterial blood bicarbonate measurement (moles/volume) 22 mmol/L 23-27 Arterial blood base excess by calculation -2.2 mmo l/L -2.5-2.5 Arterial blood oxygen saturation measurement 95 % 94-100 * Inhaled oxygen flow rate 12 NRG Arterial blood pH measurement with patient temperature correction 7.40 7.37-7.43 Arterial blood carbon dioxide, total measurement (mole s/volume) 23.0 mmol/L 21.0-31.0 Body site R RADIAL NRG Assessment of wrist artery patency prior to arterial p uncture YES-POS NRG Setting of ventilation mode NO NR G Measurement of body temperature 97.9 NRG Complete urinalysis with reflex to cultu re - 05/14/19 09:15 Urine color determination YELLOW NRG Urine clarity determination CLEAR NR G Urine pH measurement by test strip 6.5 5-9 Specific gravity of urine by test strip 1.020 1.016-1.022 Urine protein assay by test strip, semi-quantitative NEGATIVE NEGATIVE Urine glucose detection by automated test strip NE GATIVE NEGATIVE Erythrocytes detection in urine sediment by light micr oscopy NEGATIVE NEGATIVE Urine ketones detection by automated test strip NE GATIVE NEGATIVE Urine nitrite detection by test strip NEGATIVE NEGATIVE Urine total bilirubin detection by test strip NEGA TIVE NEGATIVE Urine urobilinogen measurement by automated test strip (mass/volume) NORMAL NORMAL Urine leukocyte esterase detection by dipstick NEG ATIVE NEGATIVE Automated urine sediment erythrocyte cou nt by microscopy (number/high power field) NONE NRG Automated urine sediment leukocyte count by microscopy (number/high power field) NONE NRG Bacteria detection in urine sediment by light microsco py NEGATIVE NRG Crystals detection in urine sediment by light microsco py NONE NRG Casts detection in urine sediment by light microscopy NONE NRG Mucus detection in urine sediment by light microscopy NEGATIVE NRG Complete urinalysis with reflex to culture CULTURE PENDING NRG Bacterial urine culture - 05/14/19 09:15 Bacterial urine culture NG NRG Methicillin resistant Staphylococcus aur eus (MRSA) screening culture - 05/14/19 10:55 Methicillin resistant Staphylococcus aureus (MRSA) scr eening culture NEG NRG Complete blood count (CBC) with automate d white blood cell (WBC) differential - 05/14/19 11:45 Blood leukocytes automated count (number/volume) 4.6 10*3/uL 4.3-11.0 Blood erythrocytes automated count (number/volume) 3.66 10*6/uL 4.35-5.85 Venous blood hemoglobin measurement (mass/volume) 10.2 g/dL 13.3-17.7 Blood hematocrit (volume fraction) 34 % 40-54 Automated erythrocyte mean corpuscular volume 92 [ foz_us] 80-99 Automated erythrocyte mean corpuscular h emoglobin (mass per erythrocyte) 28 pg 25-34 Automated erythrocyte mean corpuscular h emoglobin concentration measurement (mass/volume) 30 g/dL 32-36 Automated erythrocyte distribution width ratio 20. 0 % 10.0- 14.5 Automated blood platelet count (count/volume) 131 10*3/uL 130-400 Automated blood platelet mean volume measurement 8.8 [foz_us] 7.4-10.4 Automated blood neutrophils/100 leukocytes 89 % 42-75 Automated blood lymphocytes/100 leukocytes 6 % 12-44 Blood monocytes/100 leukocytes 5 % 0-12 Automated blood eosinophils/100 leukocytes 0 % 0-10 Automated blood basophils/100 leukocytes 0 % 0-10 Blood neutrophils automated count (number/volume) 4.1 10*3 1.8-7.8 Blood lymphocytes automated count (number/volume) 0.3 10*3 1.0-4.0 Blood monocytes automated count (number/volume) 0. 2 10*3 0.0-1.0 Automated eosinophil count 0.0 10*3/uL 0 .0-0.3 Automated blood basophil count (count/volume) 0.0 10*3/uL 0.0-0.1 Comprehensive metabolic panel - 05/14/19 11:45 Serum or plasma sodium measurement (moles/volume) 137 mmol/L 135-145 Serum or plasma potassium measurement (moles/volume) 5.0 mmol/L 3.6-5.0 Serum or plasma chloride measurement (moles/volume) 102 mmol/L 98-107 Carbon dioxide 23 mmol/L 21-32 Serum or plasma anion gap determination (moles/volume) 12 mmol/L 5-14 Serum or plasma urea nitrogen measurement (mass/volume ) 18 mg/dL 7-18 Serum or plasma creatinine measurement (mass/volume) 0.60 mg/dL 0.60-1.30 Serum or plasma urea nitrogen/creatinine mass ratio 30 NRG Serum or plasma creatinine measurement w ith calculation of estimated glomerular filtration rate > NRG Serum or plasma glucose measurement (mass/volume) 193 mg/dL 70-105 Serum or plasma calcium measurement (mass/volume) 8.2 mg/dL 8.5-10.1 Serum or plasma total bilirubin measurement (mass/volu me) 0.5 mg/dL 0.1-1.0 Serum or plasma alkaline phosphatase gaetano surement (enzymatic activity/volume) 133 U/L 40-136 Serum or plasma aspartate aminotransfera se measurement (enzymatic activity/volume) 17 U/L 5-34 Serum or plasma alanine aminotransferase measurement (enzymatic activity/volume) 15 U/L 0-55 Serum or plasma protein measurement (mass/volume) 5.5 g/dL 6.4-8.2 Serum or plasma albumin measurement (mass/volume) 3.3 g/dL 3.2-4.5 CALCIUM CORRECTED 8.8 mg/dL 8.5-10.1 PT panel in platelet poor plasma by coag ulation assay - 05/14/19 11:45 Prothrombin time (PT) in platelet poor plasma by coagu lation assay 14.8 s 12.2-14.7 INR in platelet poor plasma or blood by coagulation as say 1.1 0.8-1.4 Activated partial thromboplastin time (a PTT) in platelet poor plasma bycoagulation assay - 05/14/19 11:45 Activated partial thromboplastin time (a PTT) in platelet poor plasma bycoagulation assay 26 s 24-35 Manual absolute plasma cell count - 04/17 06/04 11:45 Blood monocytes/100 leukocytes 3 % NRG Manual blood segmented neutrophils/100 leukocytes 87 % NRG Manual blood lymphocytes/100 leukocytes 9 % NRG Manual eosinophils/100 leukocytes in nose 1 % NRG Blood polychromasia detection by light microscopy SLIGHT NRG Blood anisocytosis detection by light microscopy S LIGHT NRG Blood erythrocyte morphology finding identification SEE REFERENCE NRG Blood hypochromia detection by light microscopy SL IGHT NRG Serum or plasma troponin i.cardiac measu rement (mass/volume) - 05/14/19 15:10 Serum or plasma troponin i.cardiac measurement (mass/v olume) 0.113 ng/mL <0.028 Capillary blood glucose measurement by g lucometer (mass/volume) - 05/14/19 16:05 Capillary blood glucose measurement by glucometer (mas s/volume) 250 mg/dL 70-110 Activated partial thromboplastin time (a PTT) in platelet poor plasma bycoagulation assay - 05/14/19 20:00 Activated partial thromboplastin time (a PTT) in platelet poor plasma bycoagulation assay 44 s 24-35 Serum or plasma troponin i.cardiac measu rement (mass/volume) - 05/14/19 20:00 Serum or plasma troponin i.cardiac measurement (mass/v olume) 0.079 ng/mL <0.028 Capillary blood glucose measurement by g lucometer (mass/volume) - 05/14/19 20:20 Capillary blood glucose measurement by glucometer (mas s/volume) 196 mg/dL 70-110 Automated blood platelet count (count/vo lume) - 05/15/19 03:24 Automated blood platelet count (count/volume) 138 10*3/uL 130-400 Complete blood count (CBC) with automate d white blood cell (WBC) differential - 05/15/19 03:24 Blood leukocytes automated count (number/volume) 4.8 10*3/uL 4.3-11.0 Blood erythrocytes automated count (number/volume) 3.76 10*6/uL 4.35-5.85 Venous blood hemoglobin measurement (mass/volume) 10.7 g/dL 13.3-17.7 Blood hematocrit (volume fraction) 34 % 40-54 Automated erythrocyte mean corpuscular volume 91 [ foz_us] 80-99 Automated erythrocyte mean corpuscular h emoglobin (mass per erythrocyte) 29 pg 25-34 Automated erythrocyte mean corpuscular h emoglobin concentration measurement (mass/volume) 31 g/dL 32-36 Automated erythrocyte distribution width ratio 19. 9 % 10.0- 14.5 Automated blood platelet count (count/volume) 146 10*3/uL 130-400 Automated blood platelet mean volume measurement 9.8 [foz_us] 7.4-10.4 Automated blood neutrophils/100 leukocytes 85 % 42-75 Automated blood lymphocytes/100 leukocytes 7 % 12-44 Blood monocytes/100 leukocytes 8 % 0-12 Automated blood eosinophils/100 leukocytes 0 % 0-10 Automated blood basophils/100 leukocytes 0 % 0-10 Blood neutrophils automated count (number/volume) 4.0 10*3 1.8-7.8 Blood lymphocytes automated count (number/volume) 0.4 10*3 1.0-4.0 Blood monocytes automated count (number/volume) 0. 4 10*3 0.0-1.0 Automated eosinophil count 0.0 10*3/uL 0 .0-0.3 Automated blood basophil count (count/volume) 0.0 10*3/uL 0.0-0.1 Whole blood basic metabolic panel - 04/18 03:24 Serum or plasma sodium measurement (moles/volume) 137 mmol/L 135-145 Serum or plasma potassium measurement (moles/volume) 4.4 mmol/L 3.6-5.0 Serum or plasma chloride measurement (moles/volume) 102 mmol/L 98-107 Carbon dioxide 19 mmol/L 21-32 Serum or plasma anion gap determination (moles/volume) 16 mmol/L 5-14 Serum or plasma urea nitrogen measurement (mass/volume ) 15 mg/dL 7-18 Serum or plasma creatinine measurement (mass/volume) 0.64 mg/dL 0.60-1.30 Serum or plasma urea nitrogen/creatinine mass ratio 23 NRG Serum or plasma creatinine measurement w ith calculation of estimated glomerular filtration rate > NRG Serum or plasma glucose measurement (mass/volume) 146 mg/dL 70-105 Serum or plasma calcium measurement (mass/volume) 8.6 mg/dL 8.5-10.1 Serum or plasma phosphate measurement (m ass/volume) - 05/15/19 03:24 Serum or plasma phosphate measurement (mass/volume) 3.6 mg/dL 2.3-4.7 Magnesium - 05/15/19 03:24 Magnesium 2.0 mg/dL 1.6-2.4 Blood lactic acid measurement (moles/vol ume) - 05/15/19 03:24 Blood lactic acid measurement (moles/volume) 3.35 mmol/L 0.50-2.00 Activated partial thromboplastin time (a PTT) in platelet poor plasma bycoagulation assay - 05/15/19 03:24 Activated partial thromboplastin time (a PTT) in platelet poor plasma bycoagulation assay 125 s 24-35 Hemoglobin A1c measurement - 05/15/19 03 :24 Blood hemoglobin A1C measurement (mass/volume) 5.4 % 4.0-5.6 MEAN BLOOD GLUCOSE 108 % <=126 Serum or plasma lactate measurement (mol es/volume) - 05/15/19 05:25 Serum or plasma lactate measurement (moles/volume) 3.32 mmol/L 0.50-2.00 Activated partial thromboplastin time (a PTT) in platelet poor plasma bycoagulation assay - 05/15/19 08:30 Activated partial thromboplastin time (a PTT) in platelet poor plasma bycoagulation assay 57 s 24-35 Capillary blood glucose measurement by g lucometer (mass/volume) - 05/15/19 11:09 Capillary blood glucose measurement by glucometer (mas s/volume) 181 mg/dL 70-110 Activated partial thromboplastin time (a PTT) in platelet poor plasma bycoagulation assay - 05/15/19 14:50 Activated partial thromboplastin time (a PTT) in platelet poor plasma bycoagulation assay 109 s 24-35 Capillary blood glucose measurement by g lucometer (mass/volume) - 05/15/19 15:50 Capillary blood glucose measurement by glucometer (mas s/volume) 278 mg/dL 70-110 Capillary blood glucose measurement by g lucometer (mass/volume) - 05/15/19 20:40 Capillary blood glucose measurement by glucometer (mas s/volume) 246 mg/dL 70-110 Automated blood complete blood count (he mogram) panel - 05/16/19 00:35 Blood leukocytes automated count (number/volume) 5.1 10*3/uL 4.3-11.0 Blood erythrocytes automated count (number/volume) 3.59 10*6/uL 4.35-5.85 Venous blood hemoglobin measurement (mass/volume) 10.2 g/dL 13.3-17.7 Blood hematocrit (volume fraction) 32 % 40-54 Automated erythrocyte mean corpuscular volume 89 [ foz_us] 80-99 Automated erythrocyte mean corpuscular h emoglobin (mass per erythrocyte) 28 pg 25-34 Automated erythrocyte mean corpuscular h emoglobin concentration measurement (mass/volume) 32 g/dL 32-36 Automated erythrocyte distribution width ratio 19. 8 % 10.0- 14.5 Automated blood platelet count (count/volume) 167 10*3/uL 130-400 Automated blood platelet mean volume measurement 8.8 [foz_us] 7.4-10.4 Activated partial thromboplastin time (a PTT) in platelet poor plasma bycoagulation assay - 05/16/19 00:35 Activated partial thromboplastin time (a PTT) in platelet poor plasma bycoagulation assay 21 s 24-35 Whole blood basic metabolic panel - 04/18 10/04 00:35 Serum or plasma sodium measurement (moles/volume) 135 mmol/L 135-145 Serum or plasma potassium measurement (moles/volume) 4.1 mmol/L 3.6-5.0 Serum or plasma chloride measurement (moles/volume) 101 mmol/L 98-107 Carbon dioxide 22 mmol/L 21-32 Serum or plasma anion gap determination (moles/volume) 12 mmol/L 5-14 Serum or plasma urea nitrogen measurement (mass/volume ) 14 mg/dL 7-18 Serum or plasma creatinine measurement (mass/volume) 0.60 mg/dL 0.60-1.30 Serum or plasma urea nitrogen/creatinine mass ratio 23 NRG Serum or plasma creatinine measurement w ith calculation of estimated glomerular filtration rate > NRG Serum or plasma glucose measurement (mass/volume) 143 mg/dL 70-105 Serum or plasma calcium measurement (mass/volume) 8.2 mg/dL 8.5-10.1 Serum or plasma phosphate measurement (m ass/volume) - 05/16/19 00:35 Serum or plasma phosphate measurement (mass/volume) 3.1 mg/dL 2.3-4.7 Magnesium - 05/16/19 00:35 Magnesium 1.6 mg/dL 1.6-2.4 Serum or plasma troponin i.cardiac measu rement (mass/volume) - 05/16/19 00:35 Serum or plasma troponin i.cardiac measurement (mass/v olume) < ng/mL <0.028 Capillary blood glucose measurement by g lucometer (mass/volume) - 05/16/19 06:32 Capillary blood glucose measurement by glucometer (mas s/volume) 212 mg/dL 70-110 Activated partial thromboplastin time (a PTT) in platelet poor plasma bycoagulation assay - 05/16/19 08:11 Activated partial thromboplastin time (a PTT) in platelet poor plasma bycoagulation assay 48 s 24-35 Capillary blood glucose measurement by g lucometer (mass/volume) - 05/16/19 11:14 Capillary blood glucose measurement by glucometer (mas s/volume) 216 mg/dL 70-110 Activated partial thromboplastin time (a PTT) in platelet poor plasma bycoagulation assay - 05/16/19 14:55 Activated partial thromboplastin time (a PTT) in platelet poor plasma bycoagulation assay 73 s 24-35 Capillary blood glucose measurement by g lucometer (mass/volume) - 05/16/19 15:56 Capillary blood glucose measurement by glucometer (mas s/volume) 292 mg/dL 70-110 Activated partial thromboplastin time (a PTT) in platelet poor plasma bycoagulation assay - 05/16/19 21:30 Activated partial thromboplastin time (a PTT) in platelet poor plasma bycoagulation assay 92 s 24-35 Capillary blood glucose measurement by g lucometer (mass/volume) - 05/16/19 21:33 Capillary blood glucose measurement by glucometer (mas s/volume) 210 mg/dL 70-110 Activated partial thromboplastin time (a PTT) in platelet poor plasma bycoagulation assay - 05/17/19 05:20 Activated partial thromboplastin time (a PTT) in platelet poor plasma bycoagulation assay 68 s 24-35 Comprehensive metabolic panel - 05/17/19 05:20 Serum or plasma sodium measurement (moles/volume) 136 mmol/L 135-145 Serum or plasma potassium measurement (moles/volume) 4.5 mmol/L 3.6-5.0 Serum or plasma chloride measurement (moles/volume) 101 mmol/L 98-107 Carbon dioxide 23 mmol/L 21-32 Serum or plasma anion gap determination (moles/volume) 12 mmol/L 5-14 Serum or plasma urea nitrogen measurement (mass/volume ) 18 mg/dL 7-18 Serum or plasma creatinine measurement (mass/volume) 0.63 mg/dL 0.60-1.30 Serum or plasma urea nitrogen/creatinine mass ratio 29 NRG Serum or plasma creatinine measurement w ith calculation of estimated glomerular filtration rate > NRG Serum or plasma glucose measurement (mass/volume) 183 mg/dL 70-105 Serum or plasma calcium measurement (mass/volume) 8.2 mg/dL 8.5-10.1 Serum or plasma total bilirubin measurement (mass/volu me) 0.5 mg/dL 0.1-1.0 Serum or plasma alkaline phosphatase gaetano surement (enzymatic activity/volume) 106 U/L 40-136 Serum or plasma aspartate aminotransfera se measurement (enzymatic activity/volume) 13 U/L 5-34 Serum or plasma alanine aminotransferase measurement (enzymatic activity/volume) 13 U/L 0-55 Serum or plasma protein measurement (mass/volume) 5.1 g/dL 6.4-8.2 Serum or plasma albumin measurement (mass/volume) 3.2 g/dL 3.2-4.5 CALCIUM CORRECTED 8.8 mg/dL 8.5-10.1 Capillary blood glucose measurement by g lucometer (mass/volume) - 05/17/19 05:46 Capillary blood glucose measurement by glucometer (mas s/volume) 178 mg/dL 70-110 Capillary blood glucose measurement by g lucometer (mass/volume) - 05/17/19 10:46 Capillary blood glucose measurement by glucometer (mas s/volume) 233 mg/dL 70-110 Capillary blood glucose measurement by g lucometer (mass/volume) - 05/17/19 16:52 Capillary blood glucose measurement by glucometer (mas s/volume) 221 mg/dL 70-110 Capillary blood glucose measurement by g lucometer (mass/volume) - 05/17/19 20:36 Capillary blood glucose measurement by glucometer (mas s/volume) 274 mg/dL 70-110 Automated blood complete blood count (he mogram) panel - 05/18/19 05:34 Blood leukocytes automated count (number/volume) 17.4 10*3/uL 4.3-11.0 Blood erythrocytes automated count (number/volume) 4.01 10*6/uL 4.35-5.85 Venous blood hemoglobin measurement (mass/volume) 11.8 g/dL 13.3-17.7 Blood hematocrit (volume fraction) 36 % 40-54 Automated erythrocyte mean corpuscular volume 91 [ foz_us] 80-99 Automated erythrocyte mean corpuscular h emoglobin (mass per erythrocyte) 29 pg 25-34 Automated erythrocyte mean corpuscular h emoglobin concentration measurement (mass/volume) 33 g/dL 32-36 Automated erythrocyte distribution width ratio 20. 4 % 10.0- 14.5 Automated blood platelet count (count/volume) 234 10*3/uL 130-400 Automated blood platelet mean volume measurement 9.8 [foz_us] 7.4-10.4 Comprehensive metabolic panel - 05/18/19 05:34 Serum or plasma sodium measurement (moles/volume) 134 mmol/L 135-145 Serum or plasma potassium measurement (moles/volume) 4.0 mmol/L 3.6-5.0 Serum or plasma chloride measurement (moles/volume) 99 mmol/L 98-107 Carbon dioxide 20 mmol/L 21-32 Serum or plasma anion gap determination (moles/volume) 15 mmol/L 5-14 Serum or plasma urea nitrogen measurement (mass/volume ) 16 mg/dL 7-18 Serum or plasma creatinine measurement (mass/volume) 0.69 mg/dL 0.60-1.30 Serum or plasma urea nitrogen/creatinine mass ratio 23 NRG Serum or plasma creatinine measurement w ith calculation of estimated glomerular filtration rate > NRG Serum or plasma glucose measurement (mass/volume) 177 mg/dL 70-105 Serum or plasma calcium measurement (mass/volume) 8.4 mg/dL 8.5-10.1 Serum or plasma total bilirubin measurement (mass/volu me) 0.6 mg/dL 0.1-1.0 Serum or plasma alkaline phosphatase gaetano surement (enzymatic activity/volume) 150 U/L 40-136 Serum or plasma aspartate aminotransfera se measurement (enzymatic activity/volume) 19 U/L 5-34 Serum or plasma alanine aminotransferase measurement (enzymatic activity/volume) 18 U/L 0-55 Serum or plasma protein measurement (mass/volume) 6.6 g/dL 6.4-8.2 Serum or plasma albumin measurement (mass/volume) 3.9 g/dL 3.2-4.5 CALCIUM CORRECTED 8.5 mg/dL 8.5-10.1 Capillary blood glucose measurement by g lucometer (mass/volume) - 05/18/19 05:55 Capillary blood glucose measurement by glucometer (mas s/volume) 197 mg/dL 70-110 Capillary blood glucose measurement by g lucometer (mass/volume) - 05/18/19 10:33 Capillary blood glucose measurement by glucometer (mas s/volume) 220 mg/dL 70-110 Methicillin resistant Staphylococcus aur eus (MRSA) screening culture - 06/26/19 07:45 MRSA SCREEN RESULT MRSA ISOLATED NRG Capillary blood glucose measurement by g lucometer (mass/volume) - 06/26/19 07:55 Capillary blood glucose measurement by glucometer (mas s/volume) 101 mg/dL 70-110 Complete blood count (CBC) with automate d white blood cell (WBC) differential - 07/01/19 06:13 Blood leukocytes automated count (number/volume) 2.6 10*3/uL 4.3-11.0 Blood erythrocytes automated count (number/volume) 3.24 10*6/uL 4.35-5.85 Venous blood hemoglobin measurement (mass/volume) 9.6 g/dL 13.3-17.7 Blood hematocrit (volume fraction) 29 % 40-54 Automated erythrocyte mean corpuscular volume 91 [ foz_us] 80-99 Automated erythrocyte mean corpuscular h emoglobin (mass per erythrocyte) 30 pg 25-34 Automated erythrocyte mean corpuscular h emoglobin concentration measurement (mass/volume) 33 g/dL 32-36 Automated erythrocyte distribution width ratio 17. 0 % 10.0- 14.5 Automated blood platelet count (count/volume) 242 10*3/uL 130-400 Automated blood platelet mean volume measurement 8.7 [foz_us] 7.4-10.4 Automated blood neutrophils/100 leukocytes 79 % 42-75 Automated blood lymphocytes/100 leukocytes 13 % 12-44 Blood monocytes/100 leukocytes 8 % 0-12 Automated blood eosinophils/100 leukocytes 0 % 0-10 Automated blood basophils/100 leukocytes 0 % 0-10 Blood neutrophils automated count (number/volume) 2.1 10*3 1.8-7.8 Blood lymphocytes automated count (number/volume) 0.3 10*3 1.0-4.0 Blood monocytes automated count (number/volume) 0. 2 10*3 0.0-1.0 Automated eosinophil count 0.0 10*3/uL 0 .0-0.3 Automated blood basophil count (count/volume) 0.0 10*3/uL 0.0-0.1 Comprehensive metabolic panel - 07/01/19 06:13 Serum or plasma sodium measurement (moles/volume) 139 mmol/L 135-145 Serum or plasma potassium measurement (moles/volume) 4.1 mmol/L 3.6-5.0 Serum or plasma chloride measurement (moles/volume) 105 mmol/L 98-107 Carbon dioxide 19 mmol/L 21-32 Serum or plasma anion gap determination (moles/volume) 15 mmol/L 5-14 Serum or plasma urea nitrogen measurement (mass/volume ) 8 mg/dL 7-18 Serum or plasma creatinine measurement (mass/volume) 0.67 mg/dL 0.60-1.30 Serum or plasma urea nitrogen/creatinine mass ratio 12 NRG Serum or plasma creatinine measurement w ith calculation of estimated glomerular filtration rate > NRG Serum or plasma glucose measurement (mass/volume) 167 mg/dL 70-105 Serum or plasma calcium measurement (mass/volume) 9.2 mg/dL 8.5-10.1 Serum or plasma total bilirubin measurement (mass/volu me) 0.4 mg/dL 0.1-1.0 Serum or plasma alkaline phosphatase gaetano surement (enzymatic activity/volume) 145 U/L 40-136 Serum or plasma aspartate aminotransfera se measurement (enzymatic activity/volume) 13 U/L 5-34 Serum or plasma alanine aminotransferase measurement (enzymatic activity/volume) 8 U/L 0-55 Serum or plasma protein measurement (mass/volume) 6.6 g/dL 6.4-8.2 Serum or plasma albumin measurement (mass/volume) 3.7 g/dL 3.2-4.5 CALCIUM CORRECTED 9.4 mg/dL 8.5-10.1 Magnesium - 07/01/19 06:13 Magnesium 1.6 mg/dL 1.6-2.4 Complete urinalysis with reflex to cultu re - 07/01/19 07:51 Urine color determination YELLOW NRG Urine clarity determination CLEAR NR G Urine pH measurement by test strip 7 5-9 Specific gravity of urine by test strip 1.005 1.016-1.022 Urine protein assay by test strip, semi-quantitative NEGATIVE NEGATIVE Urine glucose detection by automated test strip 3+ NEGATIVE Erythrocytes detection in urine sediment by light micr oscopy NEGATIVE NEGATIVE Urine ketones detection by automated test strip NE GATIVE NEGATIVE Urine nitrite detection by test strip NEGATIVE NEGATIVE Urine total bilirubin detection by test strip NEGA TIVE NEGATIVE Urine urobilinogen measurement by automated test strip (mass/volume) NORMAL NORMAL Urine leukocyte esterase detection by dipstick NEG ATIVE NEGATIVE Automated urine sediment erythrocyte cou nt by microscopy (number/high power field) NONE NRG Automated urine sediment leukocyte count by microscopy (number/high power field) RARE NRG Bacteria detection in urine sediment by light microsco py NEGATIVE NRG Crystals detection in urine sediment by light microsco py NONE NRG Casts detection in urine sediment by light microscopy NONE NRG Mucus detection in urine sediment by light microscopy NEGATIVE NRG Complete urinalysis with reflex to culture NO NRG Complete blood count (CBC) with automate d white blood cell (WBC) differential - 12/23/19 12:15 Blood leukocytes automated count (number/volume) 4.0 10*3/uL 4.3-11.0 Blood erythrocytes automated count (number/volume) 3.46 10*6/uL 4.35-5.85 Venous blood hemoglobin measurement (mass/volume) 10.6 g/dL 13.3-17.7 Blood hematocrit (volume fraction) 34 % 40-54 Automated erythrocyte mean corpuscular volume 97 [ foz_us] 80-99 Automated erythrocyte mean corpuscular h emoglobin (mass per erythrocyte) 31 pg 25-34 Automated erythrocyte mean corpuscular h emoglobin concentration measurement (mass/volume) 32 g/dL 32-36 Automated erythrocyte distribution width ratio 16. 3 % 10.0- 14.5 Automated blood platelet count (count/volume) 146 10*3/uL 130-400 Automated blood platelet mean volume measurement 10.2 [foz_us] 7.4-10.4 Automated blood neutrophils/100 leukocytes 62 % 42-75 Automated blood lymphocytes/100 leukocytes 16 % 12-44 Blood monocytes/100 leukocytes 14 % 0-12 Automated blood eosinophils/100 leukocytes 8 % 0-10 Automated blood basophils/100 leukocytes 0 % 0-10 Blood neutrophils automated count (number/volume) 2.5 10*3 1.8-7.8 Blood lymphocytes automated count (number/volume) 0.7 10*3 1.0-4.0 Blood monocytes automated count (number/volume) 0. 6 10*3 0.0-1.0 Automated eosinophil count 0.3 10*3/uL 0 .0-0.3 Automated blood basophil count (count/volume) 0.0 10*3/uL 0.0-0.1 Whole blood basic metabolic panel - 08/17 12/02 12:15 Serum or plasma sodium measurement (moles/volume) 140 mmol/L 135-145 Serum or plasma potassium measurement (moles/volume) 3.8 mmol/L 3.6-5.0 Serum or plasma chloride measurement (moles/volume) 105 mmol/L 98-107 Carbon dioxide 24 mmol/L 21-32 Serum or plasma anion gap determination (moles/volume) 11 mmol/L 5-14 Serum or plasma urea nitrogen measurement (mass/volume ) 14 mg/dL 7-18 Serum or plasma creatinine measurement (mass/volume) 0.72 mg/dL 0.60-1.30 Serum or plasma urea nitrogen/creatinine mass ratio 19 NRG Serum or plasma creatinine measurement w ith calculation of estimated glomerular filtration rate > NRG Serum or plasma glucose measurement (mass/volume) 160 mg/dL 70-105 Serum or plasma calcium measurement (mass/volume) 8.4 mg/dL 8.5-10.1 Complete blood count (CBC) with automate d white blood cell (WBC) differential - 12/07/19 03:30 Blood leukocytes automated count (number/volume) 0.2 10*3/uL 4.3-11.0 Blood erythrocytes automated count (number/volume) 3.04 10*6/uL 4.35-5.85 Venous blood hemoglobin measurement (mass/volume) 9.4 g/dL 13.3-17.7 Blood hematocrit (volume fraction) 28 % 40-54 Automated erythrocyte mean corpuscular volume 92 [ foz_us] 80-99 Automated erythrocyte mean corpuscular h emoglobin (mass per erythrocyte) 31 pg 25-34 Automated erythrocyte mean corpuscular h emoglobin concentration measurement (mass/volume) 34 g/dL 32-36 Automated erythrocyte distribution width ratio 12. 8 % 10.0- 14.5 Automated blood platelet count (count/volume) 11 1 0*3/uL 130-400 Automated blood platelet mean volume measurement 12.3 [foz_us] 7.4-10.4 Automated blood neutrophils/100 leukocytes 0 % 42-75 Automated blood lymphocytes/100 leukocytes 67 % 12-44 Blood monocytes/100 leukocytes 24 % 0-12 Automated blood eosinophils/100 leukocytes 10 % 0-10 Automated blood basophils/100 leukocytes 0 % 0-10 Blood neutrophils automated count (number/volume) 0.0 10*3 1.8-7.8 Blood lymphocytes automated count (number/volume) 0.1 10*3 1.0-4.0 Blood monocytes automated count (number/volume) 0. 1 10*3 0.0-1.0 Automated eosinophil count 0.0 10*3/uL 0 .0-0.3 Automated blood basophil count (count/volume) 0.0 10*3/uL 0.0-0.1 Comprehensive metabolic panel - 12/07/19 03:30 Serum or plasma sodium measurement (moles/volume) 135 mmol/L 135-145 Serum or plasma potassium measurement (moles/volume) 4.7 mmol/L 3.6-5.0 Serum or plasma chloride measurement (moles/volume) 101 mmol/L 98-107 Carbon dioxide 18 mmol/L 21-32 Serum or plasma anion gap determination (moles/volume) 16 mmol/L 5-14 Serum or plasma urea nitrogen measurement (mass/volume ) 83 mg/dL 7-18 Serum or plasma creatinine measurement (mass/volume) 5.54 mg/dL 0.60-1.30 Serum or plasma urea nitrogen/creatinine mass ratio 15 NRG Serum or plasma creatinine measurement w ith calculation of estimated glomerular filtration rate 11 NRG Serum or plasma glucose measurement (mass/volume) 134 mg/dL 70-105 Serum or plasma calcium measurement (mass/volume) 8.0 mg/dL 8.5-10.1 Serum or plasma total bilirubin measurement (mass/volu me) 0.4 mg/dL 0.1-1.0 Serum or plasma alkaline phosphatase gaetano surement (enzymatic activity/volume) 75 U/L 40-136 Serum or plasma aspartate aminotransfera se measurement (enzymatic activity/volume) 26 U/L 5-34 Serum or plasma alanine aminotransferase measurement (enzymatic activity/volume) 16 U/L 0-55 Serum or plasma protein measurement (mass/volume) 6.1 g/dL 6.4-8.2 Serum or plasma albumin measurement (mass/volume) 3.7 g/dL 3.2-4.5 CALCIUM CORRECTED 8.2 mg/dL 8.5-10.1 Serum or plasma C reactive protein measu rement (mass/volume) - 12/07/19 03:30 Serum or plasma C reactive protein measurement (mass/v olume) 18.69 mg/dL 0.00-0.50 Serum or plasma lithium measurement (mol es/volume) - 12/07/19 03:30 BNP PT 93.1 pg/mL <100.0 Complete urinalysis with reflex to cultu re - 12/07/19 03:40 Urine color determination YELLOW NRG Urine clarity determination CLEAR NR G Urine pH measurement by test strip 6.0 5-9 Specific gravity of urine by test strip 1.020 1.016-1.022 Urine protein assay by test strip, semi-quantitative TRACE NEGATIVE Urine glucose detection by automated test strip NE GATIVE NEGATIVE Erythrocytes detection in urine sediment by light micr oscopy 3+ NEGATIVE Urine ketones detection by automated test strip NE GATIVE NEGATIVE Urine nitrite detection by test strip NEGATIVE NEGATIVE Urine total bilirubin detection by test strip NEGA TIVE NEGATIVE Urine urobilinogen measurement by automated test strip (mass/volume) 0.2 mg/dL < = 1.0 Urine leukocyte esterase detection by dipstick NEG ATIVE NEGATIVE Automated urine sediment erythrocyte cou nt by microscopy (number/high power field) [HPF] NRG Automated urine sediment leukocyte count by microscopy (number/high power field) NONE NRG Bacteria detection in urine sediment by light microsco py NEGATIVE NRG Squamous epithelial cells detection in u rine sediment by light microscopy RARE NRG Crystals detection in urine sediment by light microsco py NONE NRG Casts detection in urine sediment by light microscopy NONE NRG Mucus detection in urine sediment by light microscopy SMALL NRG Complete urinalysis with reflex to culture NO NRG Encounters ACCT No. Visit Date/Time Discharge Status Pt. Type Provider Facility Loc./Unit Complaint [id number] 11/17/2019 08:54:00 23:59:59 CLS Outpatient SANTI MCCURDY [facility] RAD OSTEOPENIA,HX OF COMPRE SSION FRACTURE OF SPINE [id number] 11/02/2019 10:09:00 23:59:59 CLS Outpatient SANTI MCCURDY [facility] ONC [id number] 08/25/2019 07:51:00 23:59:59 CLS Outpatient MIGUEL NOVAK [facility] RAD ENCOUNTER FOR I MAGING STUDY TO RESTAGE NEOPLASM [id number] 08/24/2019 15:30:00 00:01:00 DIS Outpatient SANTI MCCURDY [facility] ONC [id number] 07/08/2019 15:30:00 15:40:00 DIS Emergency COBY SAVAGE MD [facility] ER SUTURE REMOVAL [id number] 07/02/2019 11:40:00 23:59:59 CLS Outpatient Ulises BLOUNT MD [facility] CARD AF, CAD, HX OF PULMONAR Y EMBOLISM [id number] 07/01/2019 05:33:00 08:39:00 DIS Outpatient ANDREA STEARNS, JAS Dwyer [facility] ER FALL, HEAD LAC [id number] 06/26/2019 06:59:00 11:25:00 DIS Outpatient SAM LUKE DO [facility] SDC LYMPHOMA [id number] 06/25/2019 05:34:00 10:42:00 DIS Outpatient SAM LUKE DO [facility] PREOP LYMPHOMA [id number] 05/14/2019 08:59:00 12:45:00 DIS Inpatient HEBER MARTINEZ DO [facility] 4TH ATRIAL FIBRILLATION,HYPOTENSION [id number] 07/26/2015 11:45:00 15:38:00 DIS Inpatient HEBER MARTINEZ DO [facility] CSD CHEST PAIN [id number] 12/07/2019 03:48:00 Document Registration [id number] 12/04/2019 11:03:[address] Outpatient MIGUEL NOVAK [facility] RAD FUNCTION KIDNEY DECREASE [id number] 12/04/2019 08:24:[address] Outpatient SANTI MCCURDY [facility] deon ONC
[2019-12-07] MEDS: LACTATED RINGERS 1,000 ML IV SCH ×3 (05:47→15:30)
[2019-12-07 05:49] VITALS: BP 94/62
[2019-12-07] MEDS ORDERED: BENZTROPINE 2 MG/2 ML INJ (COGENTIN) AMP IV PRN (06:15)
[2019-12-07] MEDS ORDERED: ONDANSETRON 4 MG/2 ML (SDV) Z0FRAN IV PRN (06:15)
[2019-12-07] MEDS ORDERED: fentaNYL PATCH 75 MCG (DURAGESIC) TOP SCH (06:15)
[2019-12-07] MEDS ORDERED: fentaNYL INJECTION 100 MCG/2 ML AMP IV PRN (06:15)
[2019-12-07] MEDS ORDERED: diphenhydrAMINE 25 MG TAB (BENADRYL) PO PRN (06:15)
[2019-12-07] MEDS ORDERED: LORazepam INJ 2 MG/ML (ATIVAN) VIAL IV PRN (06:15)
[2019-12-07] MEDS: TRIM/SULFAMETH 160/800 (SEPTRA DS) TAB PO SCH ×2 (06:33→16:27)
[2019-12-07 08:00] VITALS: BP 103/67
[2019-12-07] MEDS ORDERED: LEVOFLOXACIN 750 MG TAB (LEVAQUIN) PO SCH ×2 (08:17)
[2019-12-07] MEDS ORDERED: CLOPIDOGREL 75 MG (PLAVIX) TABLET PO SCH (09:00)
[2019-12-07] MEDS ORDERED: AMIODARONE 200 MG (CORDARONE) TAB PO SCH (09:00)
[2019-12-07] MEDS ORDERED: APIXABAN 2.5 MG (ELIQUIS) TABLET PO SCH (09:00)
[2019-12-07] MEDS ORDERED: PANTOPRAZOLE 40 MG (PROTONIX) TAB PO SCH (09:00)
[2019-12-07] MEDS ORDERED: ACYCLOVIR 400 MG TABLET (ZOVIRAX) PO SCH ×2 (09:00→21:00)
[2019-12-07] MEDS ORDERED: meTOproloL SUCCINATE 50 MG (TOPROL XL) TAB PO SCH (09:00)
[2019-12-07] MEDS: GABAPENTIN 300 MG (NEURONTIN) CAP PO SCH ×2 (09:25→12:34)
[2019-12-07 09:53] VITALS: BP 133/67
[2019-12-07] MEDS ORDERED: LEVOFLOXACIN 500 MG TAB (LEVAQUIN) PO SCH (11:00)
--- NOTE | 2019-12-07 11:04 | NUR ---
"RD ASSESSMENT PMHx: PE; afib; hypercholesterolemia; HTN; HepC; DM; CA(lymphoma) PT INTERACTION: Pt was awake and pleasant during consult for MST score. Pt states current appetite is horrible and has been this way for about a year. Note intake recorded at this time, per chart review. Pt states following a regular diet at home and has no issues with n/v/c at this time. Pt states some recent issues with diarrhea, and that his last BM was 12/06. Note pt not currently on bowel regimen per chart review. Pt states current DM management is pretty good, though he unsure of his average blood glucose levels. Note unable to determine recent HbA1c, per chart review. Pt states losing a lot of weight d/t CA diagnosis and has been regaining it back. Note recent 21# wt gain x5mon, per chart review. Upon visual exam, pt appears to be adequately nourished with no visible signs of muscle/fat wasting and a BMI of 28.4. Though pt has had poor PO intake, given wt hx and visual exam, pt does not meet criteria for malnutrition per ASPEN guidelines. ABNORMAL NUTRITION-RELATED LAB VALUES LOW: Ca 8.0; Pro 6.1 HIGH: BUN 83; cr 5.54; glu 134 Est. kcal needs: 5959-2513 kcal | 20-25 kcal/kg Est. Pro needs: 100-120 g Pro | 1.0-1.2 g Pro/kg PES STATEMENT: Inadequate oral intake (NI-2.1) related to loss of appetite | diarrhea as evidenced by pt interview INTERVENTION: Continue with current diet order of CHO 60g/m 3snack diet. Switch current supplementation order from Ensure Enlive with meals TID to Glucerna (vary) with meal TID, for increased kcal intake. Glucerna provides 220 kcal and 10 g Pro per serving. Will continue to follow and reassess as pt needs, intake, and status change. MONITOR/EVALUATE: PO Intake; Plan of Care; Hydration Status; Weight Status; Lab Values Fortino Wilkins, MS, RD, LD"
[2019-12-07] MEDS: inSUlin ASPART (NovoLOG) 1 UNIT/0.01 ML (CHARGE PER UNIT) SC SCH ×2 (11:46→15:52)
[2019-12-07] MEDS ORDERED: AMIO200T4 PO (11:54)
[2019-12-07] MEDS ORDERED: ACYC400T PO (11:54)
[2019-12-07] MEDS ORDERED: SPIR25TA5 PO (11:54)
[2019-12-07] MEDS ORDERED: CLOP75TA28 PO (11:54)
[2019-12-07] MEDS ORDERED: GABA-488 PO (11:54)
[2019-12-07] MEDS ORDERED: ZOLP10TA PO (11:54)
[2019-12-07] MEDS ORDERED: SACU1TAB2 PO (11:54)
[2019-12-07] MEDS ORDERED: APIX5TAB PO (11:54)
[2019-12-07] MEDS ORDERED: ATOR40TA70 PO (11:54)
[2019-12-07] MEDS ORDERED: ONDA4TAB11 PO (11:54)
[2019-12-07 12:00] VITALS: BP 114/77
[2019-12-07] MEDS ORDERED: TMSL.4C PO (12:01)
[2019-12-07] MEDS ORDERED: FENT1PAT10 TD (12:01)
[2019-12-07] MEDS ORDERED: cefTRIAXone FOR IV USE 1,000 MG in WATER (STERILE) FOR INJECTION 10 ML IV NR (12:15)
--- NOTE | 2019-12-07 12:18 | Oncology Consultation ---
Visit Information Visit Information Date of Admission Dec 07, 2019 at 04:30 Attending Physician Carter Landis MD Admitting Physician Bertin Cole DO Chief Complaint Shaking, feeling terrible, pancytopenia. Diffuse large B cell lymphoma s/p high dose chemotherapy at [facility] last week. Interval History Mr. Tse is a 59 year old man with diffuse large B cell lymphoma under the care of Dr Jeffrey received high dose chemotherapy DHAP-R at [facility] on 11/30/2019. He presented to cancer center last Ranjeet with acute renal failure Cr 1.67 to 3.7 and bladder retention of over 500ml. He was put on Gaspar catheter and received IV fluid 500 ml. He has h/o CAD, CHF and aFib. He presented to ER last night with shaking, feeling bad and was found to have pancytopenia and rapidly raising Cr to 5.4. We have called [facility] last Saturday and discussed possible transfer pt to [facility] but pt would like to stay at home if possible. I consulted the patient on: 12/07/19 12:08 Time Seen by Provider: 10:00 Review of Systems Constitutional: chills, weakness Respiratory: no symptoms reported Cardiovascular: palpitations Gastrointestinal: nausea Musculoskeletal: no symptoms reported Psychiatric/Neurological: No Symptoms Reported Health Status Allergies Coded Allergies: No Known Drug Allergies (Unverified , 07/25/15) Home Medications Acetaminophen (Tylenol Extra Strength) 500 Mg Tablet, 500-1,000 MG PO Q4H PRN for PAIN-MILD, (Reported) Acyclovir (Acyclovir) 400 Mg Tablet, 400 MG PO BID, (Reported) Allopurinol (Allopurinol) 300 Mg Tablet, 300 MG PO DAILY, (Reported) Amiodarone HCl (Amiodarone HCl) 200 Mg Tablet, 200 MG PO DAILY, (Reported) Apixaban (Eliquis) 5 Mg Tablet, 5 MG PO BID, (Reported) Aspirin (Aspirin EC) 81 Mg Tablet., 81 MG PO DAILY for 90 Days, #90 Ref 0 Prescribed by: SHELTON HOU on 05/18/19 1135 Atorvastatin Calcium (Atorvastatin Calcium) 40 Mg Tablet, 40 MG PO DAILY, (Reported) Clopidogrel Bisulfate (Clopidogrel) 75 Mg Tablet, 75 MG PO DAILY, (Reported) Cyclobenzaprine HCl (Cyclobenzaprine HCl) 10 Mg Tablet, 10 MG PO TID PRN for MUSCLE SPASMS, (Reported) Fentanyl (Fentanyl Patch 75MCG) 1 Each Patch.td72, 75 MCG TD Q72H, (Reported) Gabapentin (Gabapentin) 300 Mg Capsule, 300 MG PO BID, (Reported) Metformin HCl (Metformin HCl ER) 500 Mg Tab.er.24h, 500 MG PO BID, (Reported) Metoprolol Succinate (Metoprolol Succinate) 50 Mg Tab.er.24h, 50 MG PO TID, (Reported) Multivitamin (Multivitamins) 1 Each Tablet, 1 TAB PO DAILY, (Reported) Ondansetron (Ondansetron Odt) 4 Mg Tab.rapdis, 4 MG PO Q8H PRN for NAUSEA/VOMITING-1ST LINE, (Reported) Oxycodone HCl (Oxycodone HCl) 5 Mg Tablet, 5-10 MG PO Q4H PRN for PAIN-SEVERE (8-10), (Reported) take 1-2 5mg tabs Pantoprazole Sodium (Pantoprazole Sodium) 40 Mg Tablet.dr, 40 MG PO DAILY, (Reported) Sacubitril/Valsartan (Entresto 24 mg-26 mg Tablet) 1 Each Tablet, 1 EA PO BID, (Reported) Spironolactone (Spironolactone) 25 Mg Tablet, 25 MG PO DAILY, (Reported) Tamsulosin HCl (Flomax) 0.4 Mg Cap, 0.4 MG PO DAILY, (Reported) Zolpidem Tartrate (Ambien) 10 Mg Tablet, 10 MG PO HS PRN for SLEEP, (Reported) FNC-Biovsr-Cvmcbh Hx Patient Social History Alcohol Use: Denies Use Recreational Drug Use: No Smoking Status: Never a Smoker 2nd Hand Smoke Exposure: No Recent Foreign Travel: No Contact w/other who traveled: No Recent Infectious Disease Expo: No Recent Hopitalizations: Yes (back sx 04/26/19) Immunizations Up To Date Tetanus Booster (TDap): Less than 5yrs Date of Influenza Vaccine: Jun 16, 2019 Family Medical History Significant Family History: CAD Under 55 Years Old, Hypertension Physical Exam Vital Signs Vital Signs - First Documented 12/07/19 03:34 Temp 37.0 Pulse 89 Resp 20 B/P (MAP) 108/64 (79) Pulse Ox 95 O2 Delivery Room Air Capillary Refill : Less Than 3 Seconds Height, Weight, BMI Height: 6'1.00" Weight: 195lbs. 5.0oz. 88.192768bv; 28.43 BMI Method:Actual General Appearance: Anxious, Other (shaking) HEENT: PERRL/EOMI Respiratory: No Accessory Muscle Use, No Respiratory Distress Cardiovascular: Tachycardia Gastrointestinal: Soft Extremity: No Pedal Edema Neurologic/Psychiatric: Alert, Oriented x3 Data Review Labs Laboratory Tests 12/07/19 03:30 12/07/19 12:15 Laboratory Tests 12/07/19 03:30: White Blood Count 0.2*L, Red Blood Count 3.04L, Hemoglobin 9.4L, Hematocrit 28L, Platelet Count 11*L, Mean Platelet Volume 12.3H, Neutrophils (%) (Auto) 0L, Lymphocytes (%) (Auto) 67H, Monocytes (%) (Auto) 24H, Neutrophils # (Auto) 0.0L, Lymphocytes # (Auto) 0.1L, Carbon Dioxide Level 18L, Anion Gap 16H, Blood Urea Nitrogen 83H, Creatinine 5.54#H, Glucose Level 134H, Calcium Level 8.0L, Corrected Calcium 8.2L, C-Reactive Protein High Sensitivity 18.69H, Total Protein 6.1L 12/07/19 03:40: Urine Protein TRACEH, Urine RBC (Auto) 3+H, Urine RBC 10-25H, Urine Mucus SMALLH 12/07/19 11:38: Glucometer 179H 12/07/19 12:15: Carbon Dioxide Level 19L, Blood Urea Nitrogen 75H, Creatinine 4.85#H, Glucose Level 142H, Calcium Level 8.1L Impression & Plan Impression & Plan IMP: 1. Acute renal failure from the recent plantin based chemotherapy. 2. DLBCL, s/p DHAP-R on 11/30/2019 3. Pancytopenia, ANC 0 with shaking, chills, no fever yet. 4. CAD, H/o Afib and CHF. Plan: 1. Transfer to [facility]. I have arranged the transfer. Dr Solo, hem/onc at [facility] accepted the transfer as of 3:15pm 12/07/2019. 2. IV Levaquin 500mg and Rocephin 1 g now before transfer 3. Pt will need to take ambulance to [facility] 4. I have spoke with the patient and he is OK for the transfer 5. Please call me Dr Zuñiga [phone] cell if any questions. BARRETT ZUÑIGA MD Dec 07, 2019 12:18
--- NOTE | 2019-12-07 12:22 | NUR ---
SPOKE WITH THE PT, WENT THRU THE EXT MED HISTORY, CALLED [facility] AND DR. MORA OFFICE TO COMPLETE THE MED REC. PT SAYS HE DOESNT KNOW MUCH ABOUT HIS MEDICATION AND HIS QING TAKES CARE OF THEM- I TRIED TO CALL HER BUT I JUST HAD TO LEAVE A MESSAGE. I ENTERED THE MED REC USING THE EXT MED HISTORY AND INFORMATION FROM THE D[facility] OFFICE- IF/WHEN I SPEAK TO HIS I WILL UPDATE THE MED REC AND NOTES NEEDED. ASPIRIN 81MG: PT DID NOT KNOW IF HE TAKES THIS MED, [facility] HAS NOT DISPENSED THIS A PRESCRIPTION SINCE 2018(THEY COULD HAVE BOUGHT IT OTC) BUT HIS PCP HAS IT AN ACTIVE MED- FOR THIS REASON I LEFT IT ON THE MED REC OTC MEDS: [employer] TYLENOL
[2019-12-07 12:44] LABS: CALCIUM 8.1 MG/DL (8.5-10.1); CREATININE SERUM 4.85 MG/DL (0.60-1.30); POTASSIUM 4.3 MMOL/L (3.6-5.0)
--- NOTE | 2019-12-07 13:14 | History & Physical ---
History of Present Illness History of Present Illness Reason for visit/HPI 59 yo M with recent acute kidney injury admitted for worsening creatinine. He has diffuse B cell lymphoma followed by Dr. Jeffrey. Oncology wanted him to go to last week but he wanted to stay local. Pancytopenia also noted with Platelets 10K. Patient also notes he has been shaky more lately. Per oncology he received high dose chemotherapy DHAP-R at [facility] 11/30/2019 Decision was made to transfer to [facility] for care. Patient is agreeable. Date of Admission Dec 07, 2019 at 04:30 Date Seen by a Provider: Dec 07, 2019 Time Seen by a Provider: 12:45 I consulted on this patient on 12/07/19 13:09 Attending Physician Carter Corcoran MD Admitting Physician Bertin Cole DO Consult Heme/Onc Allergies and Home Medications Allergies Coded Allergies: No Known Drug Allergies (Unverified , 07/25/15) Home Medications Acetaminophen 500 Mg Tablet, 500-1,000 MG PO Q4H PRN for PAIN-MILD, (Reported) Acyclovir 400 Mg Tablet, 400 MG PO BID, (Reported) Allopurinol 300 Mg Tablet, 300 MG PO DAILY, (Reported) Amiodarone HCl 200 Mg Tablet, 200 MG PO DAILY, (Reported) Apixaban 5 Mg Tablet, 5 MG PO BID, (Reported) Aspirin 81 Mg Tablet.dr, 81 MG PO DAILY Prescribed by: SHELTON HOU on 05/18/19 1135 Atorvastatin Calcium 40 Mg Tablet, 40 MG PO DAILY, (Reported) Clopidogrel Bisulfate 75 Mg Tablet, 75 MG PO DAILY, (Reported) Cyclobenzaprine HCl 10 Mg Tablet, 10 MG PO TID PRN for MUSCLE SPASMS, (Reported) Fentanyl 1 Each Patch.td72, 75 MCG TD Q72H, (Reported) Gabapentin 300 Mg Capsule, 300 MG PO BID, (Reported) Metformin HCl 500 Mg Tab.er.24h, 500 MG PO BID, (Reported) Metoprolol Succinate 50 Mg Tab.er.24h, 50 MG PO TID, (Reported) Multivitamin 1 Each Tablet, 1 TAB PO DAILY, (Reported) Ondansetron 4 Mg Tab.rapdis, 4 MG PO Q8H PRN for NAUSEA/VOMITING-1ST LINE, (Reported) Oxycodone HCl 5 Mg Tablet, 5-10 MG PO Q4H PRN for PAIN-SEVERE (8-10), (Reported) take 1-2 5mg tabs Pantoprazole Sodium 40 Mg Tablet.dr, 40 MG PO DAILY, (Reported) Sacubitril/Valsartan 1 Each Tablet, 1 EA PO BID, (Reported) Spironolactone 25 Mg Tablet, 25 MG PO DAILY, (Reported) Tamsulosin HCl 0.4 Mg Cap, 0.4 MG PO DAILY, (Reported) Zolpidem Tartrate 10 Mg Tablet, 10 MG PO HS PRN for SLEEP, (Reported) Patient Home Medication List Home Medication List Reviewed: Yes Past Vfyhnal-Jgddtt-Wadoqg Hx Patient Social History Alcohol Use: Denies Use Recreational Drug Use: No Smoking Status: Never a Smoker Former Smoker, Quit: Jul 17, 2015 2nd Hand Smoke Exposure: No Recent Foreign Travel: No Contact w/other who traveled: No Recent Hopitalizations: Yes (back sx 04/26/19) Recent Infectious Disease Expo: No Immunizations Up To Date Tetanus Booster (TDap): Less than 5yrs Date of Influenza Vaccine: Jun 16, 2019 Seasonal Allergies Seasonal Allergies: Yes Surgeries Yes (back sx; RIGHT PORT PLACEMENT) Coronary Stent, Orthopedic Respiratory No Cardiovascular Yes Atrial Fibrillation, High Cholesterol, Hypertension, Irregular Heartbeat Neurological Yes Neuropathy Reproductive System Hx Reproductive Disorders: No Genitourinary No Gastrointestinal Yes (HEPATITIS C) Hepatitis Musculoskeletal Yes Arthritis, Chronic Back Pain Endocrine History of Endocrine Disorders: Yes Endocrine Disorders: Diabetes, Non-Insulin dep HEENT History of HEENT Disorders: No Cancer Yes (DIFFUSE LARGE B CELL LYMPHOMA) Lymphoma Type of Treatment: Chemotherapy Psychosocial History of Psychiatric Problem: No Integumentary History of Skin or Integumenta: No Blood Transfusions History of Blood Disorders: No Family Medical History Significant Family History: CAD Under 55 Years Old, Hypertension Review of Systems Review of Systems General: Chills, Night Sweats, Fatigue HEENT: No Head Aches Pulmonary: No Dyspnea, No Cough Cardiovascular: No: Chest Pain, Palpitations Gastrointestinal: No: Nausea, Vomiting Genitourinary: No Dysuria; Other (catheter is uncomfortable) Neurological: Weakness All Other Systems Reviewed All Other Systems Reviewed: Yes Physical Exam Vital Signs Vital Signs - First Documented 12/07/19 03:34 Temp 37.0 Pulse 89 Resp 20 B/P (MAP) 108/64 (79) Pulse Ox 95 O2 Delivery Room Air Capillary Refill : Less Than 3 Seconds Height, Weight, BMI Height: 6'1.00" Weight: 195lbs. 5.0oz. 88.783861gy; 28.43 BMI Method:Actual General Appearance: Mild Distress (nervous, upset because his took his wallet home and now he is being transferred) HEENT: PERRL/EOMI Respiratory: Chest Non Tender, Lungs Clear, Normal Breath Sounds, No Accessory Muscle Use, No Respiratory Distress Cardiovascular: No Edema, Other (irregular rhythm.) Gastrointestinal: Non Tender, Soft Rectal: Deferred Back: Normal Inspection Extremity: Non Tender, No Calf Tenderness Neurologic/Psychiatric: Alert, Oriented x3, No Motor/Sensory Deficits, Normal Mood/Affect Skin: Warm/Dry Assessment/Plan Assessment/Plan Admission Dx acute renal failure Admission Status: Observation Assessment and Plan acute kidney failure- creatinine improved slightly with IVF. cause is likely from recently high dose chemotherapy. -need to renal dose medication Dispo: transferred to [facility] for further treatment. He was starting to have some rigors and concern was that he would develop neutropenic fever and become hypotensive and go into septic shock. He was given IVFs and levoquin, rocephin prior to transfer. He needed a high level of care setting. He also was at 2 weeks ago for chemotherapy. He also has history of congestive heart failure making his case more complex. Problems: (1) Acute kidney injury (2) Diffuse large B cell lymphoma Qualifiers: Qualified Codes: C83.30 - Diffuse large B-cell lymphoma, unspecified site Assessment & Plan: hold chemotherapy (3) Non-insulin dependent type 2 diabetes mellitus Assessment & Plan: insulin sliding scale (4) CAD (coronary artery disease), [place] coronary artery (5) Dehydration Assessment & Plan: IVF (6) Pancytopenia due to chemotherapy (7) Chronic a-fib Assessment & Plan: holding anticoags due to low platelets. Admission Dx Acute kidney failure neutropenia- concern for development of neutropenic fever. pancytopenia. atrial fibrillation (Chronic) Diffuse large B cell Lymphoma dehydration Final Diagnosis Acute kidney failure neutropenia- concern for development of neutropenic fever. pancytopenia. atrial fibrillation (Chronic) Diffuse large B cell Lymphoma dehydration Clinical Quality Measures DVT/VTE Risk/Contraindication: Risk Factor Score Per Nursin RFS Level Per Nursing on Admit: 3=High CARTER CORCORAN MD Dec 07, 2019 13:14
[2019-12-07 16:21] VITALS: BP 103/65
--- NOTE | 2019-12-07 17:28 | NUR ---
Pt transferring by EMS to [facility]. Son called and made special request that his father be able to obtain belongings prior to his transfer and have brief contact with his who was here earlier today. Pt visibly upset and requesting to see prior to his urgent transfer to . Nursing Cyber Incident Analyst met pt's and pt's belongings were obtained and made brief contact while EMS in process of transfer. left following Nursing instrucitions.
[2019-12-08] MEDS ORDERED: LEVOFLOXACIN 500 MG TAB (LEVAQUIN) PO SCH (11:00)
[2019-12-09] MEDS ORDERED: LEVOFLOXACIN 500 MG TAB (LEVAQUIN) PO SCH (11:00)
== END 2019-12-07 17:15 | disposition short-term general hospital (02) ==
LOC: EDUNIT# 03:25 → ER 03:27 → 4TH 04:30
PROVIDERS: ADMIT Family Medicine; ATTEND Family Medicine
DX: N17.9 Acute kidney failure, unspecified (principal); C83.30 Diffuse large B-cell lymphoma, unspecified site; D61.810 Antineoplastic chemotherapy induced pancytopenia; D70.9 Neutropenia, unspecified; I48.20 Chronic atrial fibrillation, unspecified; E78.00 Pure hypercholesterolemia, unspecified; G24.9 Dystonia, unspecified; I11.0 Hypertensive heart disease with heart failure; I50.9 Heart failure, unspecified; G89.3 Neoplasm related pain (acute) (chronic); B19.20 Unspecified viral hepatitis C without hepatic coma; E11.9 Type 2 diabetes mellitus without complications; I25.10 Atherosclerotic heart disease of native coronary artery without angina pectoris; E78.5 Hyperlipidemia, unspecified; M10.9 Gout, unspecified; E86.0 Dehydration; Z92.21 Personal history of antineoplastic chemotherapy; Z79.82 Long term (current) use of aspirin; Z79.899 Other long term (current) drug therapy; Z95.5 Presence of coronary angioplasty implant and graft; Z79.84 Long term (current) use of oral hypoglycemic drugs
CPT/HCPCS: 36415; 80048; 80053; 81000; 82962; 83880; 85025; 86141; G0378

== ENCOUNTER 2020-01-25 10:21 | Outpatient (RCR) | payer OTHER ==
[2019-11-30 13:24] LABS: BASOPHILS % (AUTO) 0 % (0-10); EOSINOPHILS % (AUTO) 0 % (0-10); HEMATOCRIT 37 % (40-54); HEMOGLOBIN 12.3 G/DL (13.3-17.7); LYMPHOCYTES # (AUTO) 0.1 X 10^3 (1.0-4.0); LYMPHOCYTES % (AUTO) 1 % (12-44); MEAN CORPUSCULAR HEMOGLOBIN 31 PG (25-34); MEAN CORPUSCULAR HGB CONC 34 G/DL (32-36); MEAN CORPUSCULAR VOLUME 92 FL (80-99); MEAN PLATELET VOLUME 9.4 FL (7.4-10.4); MONOCYTES # (AUTO) 0.1 X 10^3 (0.0-1.0); MONOCYTES % (AUTO) 1 % (0-12); NEUTROPHILS # (AUTO) 9.3 X 10^3 (1.8-7.8); NEUTROPHILS % (AUTO) 98 % (42-75); PLATELET COUNT 136 10^3/uL (130-400); RED CELL DISTRIBUTION WIDTH 13.2 % (10.0-14.5); WHITE BLOOD COUNT 9.5 10^3/uL (4.3-11.0)
[2019-11-30 13:41] LABS: ALBUMIN 4.3 GM/DL (3.2-4.5); BILIRUBIN,TOTAL 0.5 MG/DL (0.1-1.0); CREATININE SERUM 1.67 MG/DL (0.60-1.30); TOTAL PROTEIN 6.3 GM/DL (6.4-8.2)
[2019-12-03 15:42] LABS: BASOPHILS % (AUTO) 0 % (0-10); EOSINOPHILS # (AUTO) 0.1 10^3/uL (0.0-0.3); EOSINOPHILS % (AUTO) 6 % (0-10); HEMATOCRIT 39 % (40-54); LYMPHOCYTES # (AUTO) 0.4 X 10^3 (1.0-4.0); LYMPHOCYTES % (AUTO) 21 % (12-44); MEAN CORPUSCULAR HEMOGLOBIN 31 PG (25-34); MEAN CORPUSCULAR HGB CONC 34 G/DL (32-36); MEAN CORPUSCULAR VOLUME 92 FL (80-99); MEAN PLATELET VOLUME 9.8 FL (7.4-10.4); MONOCYTES % (AUTO) 1 % (0-12); NEUTROPHILS # (AUTO) 1.5 X 10^3 (1.8-7.8); NEUTROPHILS % (AUTO) 73 % (42-75); PLATELET COUNT 55 10^3/uL (130-400); RED CELL DISTRIBUTION WIDTH 13.2 % (10.0-14.5); WHITE BLOOD COUNT 2.1 10^3/uL (4.3-11.0)
[2019-12-03 16:00] LABS: CALCIUM 8.3 MG/DL (8.5-10.1); CREATININE SERUM 3.73 MG/DL (0.60-1.30); POTASSIUM 4.9 MMOL/L (3.6-5.0)
[2019-12-04 12:44] LABS: BASOPHILS % (AUTO) 0 % (0-10); EOSINOPHILS # (AUTO) 0.1 10^3/uL (0.0-0.3); EOSINOPHILS % (AUTO) 12 % (0-10); HEMATOCRIT 32 % (40-54); HEMOGLOBIN 10.5 G/DL (13.3-17.7); LYMPHOCYTES # (AUTO) 0.2 X 10^3 (1.0-4.0); LYMPHOCYTES % (AUTO) 49 % (12-44); MEAN CORPUSCULAR HEMOGLOBIN 31 PG (25-34); MEAN CORPUSCULAR HGB CONC 33 G/DL (32-36); MEAN CORPUSCULAR VOLUME 93 FL (80-99); MEAN PLATELET VOLUME 9.7 FL (7.4-10.4); MONOCYTES % (AUTO) 2 % (0-12); NEUTROPHILS # (AUTO) 0.2 X 10^3 (1.8-7.8); NEUTROPHILS % (AUTO) 37 % (42-75); RED CELL DISTRIBUTION WIDTH 13.1 % (10.0-14.5)
[2019-12-04 12:48] LABS: PLATELET COUNT 27 10^3/uL (130-400); WHITE BLOOD COUNT 0.4 10^3/uL (4.3-11.0)
[2019-12-04 13:02] LABS: ALBUMIN 3.5 GM/DL (3.2-4.5); BILIRUBIN,TOTAL 0.3 MG/DL (0.1-1.0); CALCIUM 6.8 MG/DL (8.5-10.1); CREATININE SERUM 4.5 MG/DL (0.60-1.30); POTASSIUM 4.6 MMOL/L (3.6-5.0); TOTAL PROTEIN 5.4 GM/DL (6.4-8.2)
[2019-12-04 15:05] LABS: BILIRUBIN,URINE NEGATIVE (NEGATIVE); CLARITY,URINE CLEAR; COLOR,URINE YELLOW; GLUCOSE, URINE (UA) TRACE (NEGATIVE); KETONES,URINE NEGATIVE (NEGATIVE); LEUKOCYTE ESTERASE ,URINE NEGATIVE (NEGATIVE); NITRITE,URINE NEGATIVE (NEGATIVE); PH,URINE 6.5 (5-9); PROTEIN,URINE 1+ (NEGATIVE)
[2019-12-04 15:16] LABS: BACTERIA,URINE NEGATIVE /HPF; RBC,URINE RARE /HPF; WBC,URINE RARE /HPF
[2019-12-14 15:40] LABS: BASOPHILS # (AUTO) 0.1 10^3/uL (0.0-0.1); BASOPHILS % (AUTO) 1 % (0-10); EOSINOPHILS # (AUTO) 0.1 10^3/uL (0.0-0.3); EOSINOPHILS % (AUTO) 1 % (0-10); HEMATOCRIT 36 % (40-54); HEMOGLOBIN 11.8 G/DL (13.3-17.7); LYMPHOCYTES # (AUTO) 1.1 X 10^3 (1.0-4.0); LYMPHOCYTES % (AUTO) 8 % (12-44); MEAN CORPUSCULAR HEMOGLOBIN 30 PG (25-34); MEAN CORPUSCULAR HGB CONC 33 G/DL (32-36); MEAN CORPUSCULAR VOLUME 92 FL (80-99); MEAN PLATELET VOLUME 8.9 FL (7.4-10.4); MONOCYTES # (AUTO) 2.2 X 10^3 (0.0-1.0); MONOCYTES % (AUTO) 16 % (0-12); NEUTROPHILS # (AUTO) 9.9 X 10^3 (1.8-7.8); NEUTROPHILS % (AUTO) 74 % (42-75); PLATELET COUNT 229 10^3/uL (130-400); RED CELL DISTRIBUTION WIDTH 13.3 % (10.0-14.5); WHITE BLOOD COUNT 13.3 10^3/uL (4.3-11.0)
[2019-12-14 15:56] LABS: CALCIUM 8.1 MG/DL (8.5-10.1); CREATININE SERUM 1.82 MG/DL (0.60-1.30); POTASSIUM 3.4 MMOL/L (3.6-5.0)
[2019-12-21 10:30] LABS: BASOPHILS # (AUTO) 0.1 10^3/uL (0.0-0.1); BASOPHILS % (AUTO) 1 % (0-10); EOSINOPHILS % (AUTO) 0 % (0-10); HEMATOCRIT 31 % (40-54); HEMOGLOBIN 10.4 G/DL (13.3-17.7); LYMPHOCYTES # (AUTO) 0.8 X 10^3 (1.0-4.0); LYMPHOCYTES % (AUTO) 11 % (12-44); MEAN CORPUSCULAR HEMOGLOBIN 31 PG (25-34); MEAN CORPUSCULAR HGB CONC 34 G/DL (32-36); MEAN CORPUSCULAR VOLUME 92 FL (80-99); MEAN PLATELET VOLUME 9.6 FL (7.4-10.4); MONOCYTES # (AUTO) 1.3 X 10^3 (0.0-1.0); MONOCYTES % (AUTO) 17 % (0-12); NEUTROPHILS # (AUTO) 5.5 X 10^3 (1.8-7.8); NEUTROPHILS % (AUTO) 72 % (42-75); PLATELET COUNT 247 10^3/uL (130-400); RED CELL DISTRIBUTION WIDTH 13.6 % (10.0-14.5); WHITE BLOOD COUNT 7.7 10^3/uL (4.3-11.0)
[2019-12-21 10:44] LABS: CALCIUM 9.1 MG/DL (8.5-10.1); CREATININE SERUM 1.55 MG/DL (0.60-1.30); POTASSIUM 5.3 MMOL/L (3.6-5.0)
[2019-12-28 11:40] LABS: BASOPHILS # (AUTO) 0.1 10^3/uL (0.0-0.1); BASOPHILS % (AUTO) 1 % (0-10); EOSINOPHILS # (AUTO) 0.1 10^3/uL (0.0-0.3); EOSINOPHILS % (AUTO) 1 % (0-10); HEMATOCRIT 34 % (40-54); HEMOGLOBIN 11.2 G/DL (13.3-17.7); LYMPHOCYTES % (AUTO) 13 % (12-44); MEAN CORPUSCULAR HEMOGLOBIN 31 PG (25-34); MEAN CORPUSCULAR HGB CONC 33 G/DL (32-36); MEAN CORPUSCULAR VOLUME 94 FL (80-99); MEAN PLATELET VOLUME 9.8 FL (7.4-10.4); MONOCYTES # (AUTO) 1.2 X 10^3 (0.0-1.0); MONOCYTES % (AUTO) 16 % (0-12); NEUTROPHILS % (AUTO) 69 % (42-75); PLATELET COUNT 183 10^3/uL (130-400); RED CELL DISTRIBUTION WIDTH 14.9 % (10.0-14.5); WHITE BLOOD COUNT 7.3 10^3/uL (4.3-11.0)
[2019-12-28 11:54] LABS: CALCIUM 9.6 MG/DL (8.5-10.1)
[2019-12-28 11:58] LABS: CREATININE SERUM 1.92 MG/DL (0.60-1.30)
[2019-12-28 12:00] LABS: POTASSIUM 6.8 MMOL/L (3.6-5.0)
[2019-12-31 12:42] LABS: BASOPHILS # (AUTO) 0.1 10^3/uL (0.0-0.1); BASOPHILS % (AUTO) 1 % (0-10); EOSINOPHILS # (AUTO) 0.1 10^3/uL (0.0-0.3); EOSINOPHILS % (AUTO) 2 % (0-10); HEMATOCRIT 31 % (40-54); HEMOGLOBIN 10.4 G/DL (13.3-17.7); LYMPHOCYTES # (AUTO) 1.1 X 10^3 (1.0-4.0); LYMPHOCYTES % (AUTO) 14 % (12-44); MEAN CORPUSCULAR HEMOGLOBIN 31 PG (25-34); MEAN CORPUSCULAR HGB CONC 33 G/DL (32-36); MEAN CORPUSCULAR VOLUME 93 FL (80-99); MEAN PLATELET VOLUME 10.1 FL (7.4-10.4); MONOCYTES % (AUTO) 13 % (0-12); NEUTROPHILS # (AUTO) 5.4 X 10^3 (1.8-7.8); NEUTROPHILS % (AUTO) 70 % (42-75); PLATELET COUNT 175 10^3/uL (130-400); RED CELL DISTRIBUTION WIDTH 14.9 % (10.0-14.5); WHITE BLOOD COUNT 7.7 10^3/uL (4.3-11.0)
[2019-12-31 13:09] LABS: ALBUMIN 4.3 GM/DL (3.2-4.5); BILIRUBIN,TOTAL 0.4 MG/DL (0.1-1.0); CREATININE SERUM 1.83 MG/DL (0.60-1.30); MAGNESIUM 1.9 MG/DL (1.6-2.4); POTASSIUM 5.9 MMOL/L (3.6-5.0); TOTAL PROTEIN 7.1 GM/DL (6.4-8.2)
[2020-01-04 11:00] LABS: BASOPHILS % (AUTO) 0 % (0-10); EOSINOPHILS # (AUTO) 0.2 10^3/uL (0.0-0.3); EOSINOPHILS % (AUTO) 2 % (0-10); HEMATOCRIT 32 % (40-54); HEMOGLOBIN 10.7 G/DL (13.3-17.7); LYMPHOCYTES # (AUTO) 0.9 X 10^3 (1.0-4.0); LYMPHOCYTES % (AUTO) 7 % (12-44); MEAN CORPUSCULAR HEMOGLOBIN 31 PG (25-34); MEAN CORPUSCULAR HGB CONC 34 G/DL (32-36); MEAN CORPUSCULAR VOLUME 92 FL (80-99); MEAN PLATELET VOLUME 10.1 FL (7.4-10.4); MONOCYTES # (AUTO) 0.2 X 10^3 (0.0-1.0); MONOCYTES % (AUTO) 1 % (0-12); NEUTROPHILS # (AUTO) 11.1 X 10^3 (1.8-7.8); NEUTROPHILS % (AUTO) 90 % (42-75); PLATELET COUNT 97 10^3/uL (130-400); RED CELL DISTRIBUTION WIDTH 15.3 % (10.0-14.5); WHITE BLOOD COUNT 12.4 10^3/uL (4.3-11.0)
[2020-01-04 11:21] LABS: ALBUMIN 4.2 GM/DL (3.2-4.5); BILIRUBIN,TOTAL 0.3 MG/DL (0.1-1.0); CALCIUM 9.3 MG/DL (8.5-10.1); CREATININE SERUM 1.68 MG/DL (0.60-1.30); MAGNESIUM 1.8 MG/DL (1.6-2.4); POTASSIUM 5.3 MMOL/L (3.6-5.0)
[2020-01-07 15:48] LABS: BASOPHILS % (AUTO) 0 % (0-10); EOSINOPHILS # (AUTO) 0.1 10^3/uL (0.0-0.3); EOSINOPHILS % (AUTO) 1 % (0-10); HEMATOCRIT 30 % (40-54); HEMOGLOBIN 10.4 G/DL (13.3-17.7); LYMPHOCYTES % (AUTO) 9 % (12-44); MEAN CORPUSCULAR HEMOGLOBIN 31 PG (25-34); MEAN CORPUSCULAR HGB CONC 34 G/DL (32-36); MEAN CORPUSCULAR VOLUME 92 FL (80-99); MEAN PLATELET VOLUME 8.7 FL (7.4-10.4); MONOCYTES # (AUTO) 0.9 X 10^3 (0.0-1.0); MONOCYTES % (AUTO) 8 % (0-12); NEUTROPHILS # (AUTO) 9.2 X 10^3 (1.8-7.8); NEUTROPHILS % (AUTO) 82 % (42-75); PLATELET COUNT 46 10^3/uL (130-400); WHITE BLOOD COUNT 11.2 10^3/uL (4.3-11.0)
[2020-01-07 16:05] LABS: CALCIUM 9.1 MG/DL (8.5-10.1); CREATININE SERUM 1.62 MG/DL (0.60-1.30); POTASSIUM 5.5 MMOL/L (3.6-5.0)
[2020-01-11 11:27] LABS: BASOPHILS % (AUTO) 0 % (0-10); EOSINOPHILS # (AUTO) 0.1 10^3/uL (0.0-0.3); EOSINOPHILS % (AUTO) 1 % (0-10); HEMATOCRIT 29 % (40-54); HEMOGLOBIN 9.9 G/DL (13.3-17.7); LYMPHOCYTES # (AUTO) 0.7 X 10^3 (1.0-4.0); LYMPHOCYTES % (AUTO) 8 % (12-44); MEAN CORPUSCULAR HEMOGLOBIN 31 PG (25-34); MEAN CORPUSCULAR HGB CONC 34 G/DL (32-36); MEAN CORPUSCULAR VOLUME 93 FL (80-99); MEAN PLATELET VOLUME 10.2 FL (7.4-10.4); MONOCYTES % (AUTO) 10 % (0-12); NEUTROPHILS # (AUTO) 7.9 X 10^3 (1.8-7.8); NEUTROPHILS % (AUTO) 81 % (42-75); RED CELL DISTRIBUTION WIDTH 14.9 % (10.0-14.5); WHITE BLOOD COUNT 9.7 10^3/uL (4.3-11.0)
[2020-01-11 11:29] LABS: PLATELET COUNT 33 10^3/uL (130-400)
[2020-01-11 11:48] LABS: CALCIUM 8.8 MG/DL (8.5-10.1); CREATININE SERUM 1.28 MG/DL (0.60-1.30); POTASSIUM 4.7 MMOL/L (3.6-5.0)
[2020-01-14 11:12] LABS: BASOPHILS % (AUTO) 0 % (0-10); EOSINOPHILS # (AUTO) 0.2 10^3/uL (0.0-0.3); EOSINOPHILS % (AUTO) 3 % (0-10); HEMATOCRIT 27 % (40-54); HEMOGLOBIN 9.1 G/DL (13.3-17.7); LYMPHOCYTES # (AUTO) 0.7 X 10^3 (1.0-4.0); LYMPHOCYTES % (AUTO) 13 % (12-44); MEAN CORPUSCULAR HEMOGLOBIN 32 PG (25-34); MEAN CORPUSCULAR HGB CONC 34 G/DL (32-36); MEAN CORPUSCULAR VOLUME 93 FL (80-99); MEAN PLATELET VOLUME 9.1 FL (7.4-10.4); MONOCYTES # (AUTO) 1.1 X 10^3 (0.0-1.0); MONOCYTES % (AUTO) 19 % (0-12); NEUTROPHILS # (AUTO) 3.6 X 10^3 (1.8-7.8); NEUTROPHILS % (AUTO) 65 % (42-75); RED CELL DISTRIBUTION WIDTH 16.5 % (10.0-14.5); WHITE BLOOD COUNT 5.5 10^3/uL (4.3-11.0)
[2020-01-14 11:16] LABS: PLATELET COUNT 62 10^3/uL (130-400)
[2020-01-14 11:28] LABS: BILIRUBIN,TOTAL 0.3 MG/DL (0.1-1.0); CALCIUM 8.8 MG/DL (8.5-10.1); CREATININE SERUM 1.36 MG/DL (0.60-1.30); MAGNESIUM 1.7 MG/DL (1.6-2.4); POTASSIUM 4.9 MMOL/L (3.6-5.0); TOTAL PROTEIN 6.6 GM/DL (6.4-8.2)
[2020-01-19 11:19] LABS: BASOPHILS % (AUTO) 1 % (0-10); EOSINOPHILS # (AUTO) 0.1 10^3/uL (0.0-0.3); EOSINOPHILS % (AUTO) 3 % (0-10); HEMATOCRIT 26 % (40-54); HEMOGLOBIN 8.9 G/DL (13.3-17.7); LYMPHOCYTES # (AUTO) 0.8 X 10^3 (1.0-4.0); LYMPHOCYTES % (AUTO) 20 % (12-44); MEAN CORPUSCULAR HEMOGLOBIN 32 PG (25-34); MEAN CORPUSCULAR HGB CONC 34 G/DL (32-36); MEAN CORPUSCULAR VOLUME 94 FL (80-99); MEAN PLATELET VOLUME 8.7 FL (7.4-10.4); MONOCYTES # (AUTO) 1.2 X 10^3 (0.0-1.0); MONOCYTES % (AUTO) 28 % (0-12); NEUTROPHILS % (AUTO) 48 % (42-75); PLATELET COUNT 144 10^3/uL (130-400); RED CELL DISTRIBUTION WIDTH 17.2 % (10.0-14.5); WHITE BLOOD COUNT 4.1 10^3/uL (4.3-11.0)
[2020-01-19 11:39] LABS: CALCIUM 8.7 MG/DL (8.5-10.1); CREATININE SERUM 1.43 MG/DL (0.60-1.30); POTASSIUM 5.1 MMOL/L (3.6-5.0)
[~2020-01-25 10:21] MED LIST changes: +ACETAMINOPHEN 325 MG TAB (TYLENOL) CANCER CTR PO PRN; +ACETAMINOPHEN 500 MG TAB (TYLENOL) CANCER CTR ONE; +ACYC400T PO; +AMIO200T4 PO; +ATOR40TA70 PO; +D5W 500 ML IV (CANCER CTR) 500 ML IV SCH; +FENT1PAT10 TD; +FOSAPREPITANT (CANCER CENTER) 150 MG in NS (IVPB) CANCER CENTER ONLY 150 ML IV SCH; +GABA-488 PO; +GEMCITABINE HCL (GENERIC) 2,000 MG in NS (IVPB) CANCER CENTER 100 ML IV SCH; +GEMCITABINE HCL IV SCH; +METF-865 PO; -METF500T19 PO; +NS IV 1000 ML (CANCER CTR) IV SCH; +NS IV SCH; +ONDA4TAB11 PO; +OXALIPLATIN 180 MG in D5W 250 ML IVPB (CANCER CTR) 250 ML IV SCH; +OXALIPLATIN 200 MG in D5W 250 ML IVPB (CANCER CTR) 250 ML IV SCH; -OXYC-529 PO; +OXYC5TAB96 PO; +PALONOSETRON HCL 0.25 MG, DEXAMETHASONE INJECTION 10 MG in NS (IVPB) CANCER CENTER 50 ML IV SCH; +PEGFILGRASTIM 6 MG/0.6ML NEULASTA SC ONE; +PEGFILGRASTIM 6 MG/0.6ML NEULASTA SC SCH; +SACU1TAB2 PO; +SPIR25TA5 PO; +TMSL.4C PO; +ZOLP10TA PO; +diphenhydrAMINE 25 MG TAB (BENADRYL) CANCER CENTER PO SCH; +riTUXimab 500 MG, riTUXimab FOR IV INJ CONC 300 MG in NS (IVPB) CANCER CENTER 186 ML IV SCH
[2020-01-25 11:08] LABS: BASOPHILS % (AUTO) 1 % (0-10); EOSINOPHILS # (AUTO) 0.2 10^3/uL (0.0-0.3); EOSINOPHILS % (AUTO) 4 % (0-10); HEMATOCRIT 27 % (40-54); LYMPHOCYTES # (AUTO) 0.8 X 10^3 (1.0-4.0); LYMPHOCYTES % (AUTO) 18 % (12-44); MEAN CORPUSCULAR HEMOGLOBIN 31 PG (25-34); MEAN CORPUSCULAR HGB CONC 33 G/DL (32-36); MEAN CORPUSCULAR VOLUME 94 FL (80-99); MEAN PLATELET VOLUME 9.4 FL (7.4-10.4); MONOCYTES # (AUTO) 0.2 X 10^3 (0.0-1.0); MONOCYTES % (AUTO) 6 % (0-12); NEUTROPHILS % (AUTO) 73 % (42-75); PLATELET COUNT 94 10^3/uL (130-400); WHITE BLOOD COUNT 4.2 10^3/uL (4.3-11.0)
[2020-01-25 11:16] LABS: CALCIUM 9.3 MG/DL (8.5-10.1); CREATININE SERUM 1.28 MG/DL (0.60-1.30); POTASSIUM 5.4 MMOL/L (3.6-5.0)
== END 2020-02-28 | disposition home or self-care (01) ==
LOC: ONC 10:21
PROVIDERS: ATTEND Internal Medicine Hematology & Oncology
DX: Z51.11 Encounter for antineoplastic chemotherapy (principal); C83.39 Diffuse large B-cell lymphoma, extranodal and solid organ sites; I25.10 Atherosclerotic heart disease of native coronary artery without angina pectoris; I25.2 Old myocardial infarction; Z86.711 Personal history of pulmonary embolism; Z79.01 Long term (current) use of anticoagulants; Z79.82 Long term (current) use of aspirin; Z79.02 Long term (current) use of antithrombotics/antiplatelets; Z95.5 Presence of coronary angioplasty implant and graft; Z98.1 Arthrodesis status; Z98.890 Other specified postprocedural states; Z79.899 Other long term (current) drug therapy
CPT/HCPCS: 80053; 83615; 85025; 96372; 96413; G0463; 36430; 36591; 80048; 81000; 83735; 86900; 86901; 96360; 96361; 96367; 96375; 96415; 96417; 99213; J9312